=== PATIENT | female | born 1970 | race Caucasian/White ===

== ENCOUNTER 2016-04-21 18:54 | Emergency (ER) | payer OTHER ==
[~2016-04-21] VITALS: Ht 170.2 cm; Wt 88.6 kg
[~2016-04-21 18:54] MED LIST: DIVA250T4 PO; DOCU-174 PO; LURA40 PO; OMEP20 PO; TRAZ-147 PO; VENL-68 PO
[2016-04-21] MEDS ORDERED: RISP.5 PO (19:26)
[2016-04-21] MEDS ORDERED: LORA2TAB2 PO (19:35)
[2016-04-21] MEDS ORDERED: LACT30L PO (19:35)
[2016-04-21] MEDS ORDERED: DOCU250C91 PO (19:35)
[2016-04-21] MEDS ORDERED: SERT50TA12 PO (19:35)
[2016-04-21] MEDS ORDERED: BENZ1TAB10 PO (19:35)
[2016-04-21 21:00] VITALS: BP 111/64
[2016-08-18] MEDS ORDERED: MIRT15 PO (19:50)
== END 2016-04-21 21:47 | disposition home or self-care (01) ==
LOC: EMS 18:56
DX: H53.123 Transient visual loss, bilateral (principal); F17.210 Nicotine dependence, cigarettes, uncomplicated; F31.9 Bipolar disorder, unspecified; J44.9 Chronic obstructive pulmonary disease, unspecified; K21.9 Gastro-esophageal reflux disease without esophagitis; F20.9 Schizophrenia, unspecified; Z88.2 Allergy status to sulfonamides; Z88.6 Allergy status to analgesic agent; Z91.013 Allergy to seafood
CPT/HCPCS: 70450; 99284

== ENCOUNTER 2016-05-24 18:22 | Emergency (ER) | payer OTHER ==
[~2016-05-24] VITALS: Ht 167.6 cm; Wt 86.0 kg
[~2016-05-24 18:22] MED LIST changes: +BENZ1TAB10 PO; -DOCU-174 PO; +DOCU250C91 PO; +LACT30L PO; +LORA2TAB2 PO; -LURA40 PO; -OMEP20 PO; +RISP.5 PO; +SERT50TA12 PO; -TRAZ-147 PO; -VENL-68 PO
[2016-05-24] MEDS ORDERED: TOPI25 PO (18:36)
[2016-05-24] MEDS ORDERED: TRAZ-147 PO (18:36)
[2016-05-24] MEDS ORDERED: QUET200T PO (18:36)
[2016-05-24 19:17] LABS: BASOPHILS % (AUTO) 0.3 % (0.0-2.0); EOSINOPHILS % (AUTO) 0.1 % (1.0-6.0); HEMATOCRIT 42.8 % (36-46); HEMOGLOBIN 14.1 g/dL (12.0-16.0); LYMPHOCYTES # (AUTO) 2.4 K/uL (1.0-4.8); LYMPHOCYTES % (AUTO) 35.1 % (22.0-44.0); MEAN CORPUSCULAR HEMOGLOBIN 30.5 pg (26.0-34.0); MEAN CORPUSCULAR VOLUME 93 fL (80-100); MONOCYTES # (AUTO) 0.7 K/uL (0.1-1.0); MONOCYTES % (AUTO) 9.8 % (2.0-9.0); NEUTROPHILS # (AUTO) 3.7 K/uL (1.8-7.7); NEUTROPHILS % (AUTO) 54.7 % (40.0-70.0); PLATELET COUNT (AUTO) 234 K/uL (150-450); RED BLOOD CELL COUNT(AUTO) 4.62 MIL/uL (4.00-5.20); RED CELL DISTRIBUTION WIDTH 15.6 % (11.5-14.5); WHITE BLOOD COUNT (AUTO) 6.9 K/uL (4.5-11.0)
[2016-05-24 19:40] LABS: ANION GAP 13 mmol/L (8-16); CALCIUM, TOTAL 8.4 mg/dL (8.8-10.5); CARBON DIOXIDE 22 mmol/L (22-29); CHLORIDE 109 mmol/L (98-107); GLOMERULAR FILTR. RATE CALC 60 mL/min (>60); POTASSIUM 3.3 mmol/L (3.5-5.1); SODIUM SERUM 144 mmol/L (136-145); UREA NITROGEN, BLOOD 12 mg/dL (7-18)
[2016-05-24 19:46] LABS: ALANINE AMINOTRANSFERASE 12 U/L (12-78); ALBUMIN 3.4 g/dL (3.4-5.0); ASPARTATE AMINOTRANSFERASE 11 U/L (15-37); BILIRUBIN,TOTAL 0.2 mg/dL (0.1-1.0); TOTAL PROTEIN, SERUM 6.5 g/dL (6.4-8.2)
[2016-05-24] MEDS ORDERED: DIVA500T35 PO (20:09)
[2016-05-24] MEDS ORDERED: RISP4 PO (20:09)
[2016-05-24] MEDS ORDERED: SERT100T12 PO (20:09)
[2016-05-24] MEDS ORDERED: QUEtiapine FUMARATE 100 MG TABLET PO ONE (20:15)
[2016-05-24] MEDS ORDERED: POTASSIUM CHLORIDE 10% 40 MEQ/30 ML LIQUID UDCUP PO ONE (20:30)
[2016-05-24] MEDS ORDERED: LACTULOSE 20 GM/30 ML SOLUTION UDCUP PO ONE (20:30)
[2016-05-24 21:01] LABS: VALPROIC ACID 79 mcg/mL (50-100)
[2016-05-24 21:28] VITALS: BP 112/70
[2016-08-18] MEDS ORDERED: MIRT15 PO (19:50)
== END 2016-05-24 21:28 | disposition home or self-care (01) ==
LOC: EMS 18:25
DX: F20.9 Schizophrenia, unspecified (principal); E72.20 Disorder of urea cycle metabolism, unspecified; E87.6 Hypokalemia; F69 Unspecified disorder of adult personality and behavior; R44.0 Auditory hallucinations
CPT/HCPCS: 36415; 80053; 80164; 82140; 84703; 85025; 99284; G0480

== ENCOUNTER 2016-05-26 19:48 | Inpatient (IN) | payer MEDICAID, OTHER ==
[~2016-05-26] VITALS: Ht 167.6 cm; Wt 85.4 kg
[~2016-05-26 19:48] MED LIST changes: -DIVA250T4 PO; +DIVA500T35 PO; +QUET200T PO; -RISP.5 PO; +RISP4 PO; +SERT100T12 PO; -SERT50TA12 PO; +TOPI25 PO; +TRAZ-147 PO
[2016-05-26 20:16] LABS: BASOPHILS % (AUTO) 0.4 % (0.0-2.0); EOSINOPHILS % (AUTO) 0 % (1.0-6.0); HEMATOCRIT 46.1 % (36-46); HEMOGLOBIN 15.1 g/dL (12.0-16.0); LYMPHOCYTES # (AUTO) 2.5 K/uL (1.0-4.8); LYMPHOCYTES % (AUTO) 35.3 % (22.0-44.0); MEAN CORPUSCULAR HEMOGLOBIN 30.4 pg (26.0-34.0); MEAN CORPUSCULAR HGB CONC 32.7 G/dL (31.0-37.0); MEAN CORPUSCULAR VOLUME 93 fL (80-100); MONOCYTES # (AUTO) 0.7 K/uL (0.1-1.0); MONOCYTES % (AUTO) 10.4 % (2.0-9.0); NEUTROPHILS # (AUTO) 3.8 K/uL (1.8-7.7); NEUTROPHILS % (AUTO) 53.9 % (40.0-70.0); PLATELET COUNT (AUTO) 259 K/uL (150-450); RED BLOOD CELL COUNT(AUTO) 4.95 MIL/uL (4.00-5.20); RED CELL DISTRIBUTION WIDTH 15.5 % (11.5-14.5)
[2016-05-26 20:29] LABS: ANION GAP 13 mmol/L (8-16); CALCIUM, TOTAL 8.4 mg/dL (8.8-10.5); CARBON DIOXIDE 24 mmol/L (22-29); CHLORIDE 105 mmol/L (98-107); CREATININE 1.02 mg/dL (0.60-1.30); GLOMERULAR FILTR. RATE CALC 59 mL/min (>60); POTASSIUM 3.9 mmol/L (3.5-5.1); SODIUM SERUM 142 mmol/L (136-145); UREA NITROGEN, BLOOD 6 mg/dL (7-18)
[2016-05-26 20:35] LABS: ALANINE AMINOTRANSFERASE 14 U/L (12-78); ALBUMIN 3.7 g/dL (3.4-5.0); ASPARTATE AMINOTRANSFERASE 9 U/L (15-37); BILIRUBIN,TOTAL 0.3 mg/dL (0.1-1.0); TOTAL PROTEIN, SERUM 7.3 g/dL (6.4-8.2)
[2016-05-26 20:45] LABS: VALPROIC ACID 91 mcg/mL (50-100)
[2016-05-26 21:37] VITALS: BP 125/77
[2016-05-27 00:37] VITALS: BP 127/68
[2016-05-27 01:01] VITALS: BP 127/75
[2016-05-27 02:30] LABS: ADD UA MICROSCOPIC YES; APPEARANCE,URINE CLOUDY (CLEAR); GLUCOSE, URINE (UA) NEGATIVE (NEGATIVE); KETONES,URINE TRACE mg/dL (NEGATIVE); LEUKOCYTE ESTERASE ,URINE NEGATIVE (NEGATIVE); OCCULT BLOOD,URINE MODERATE (NEGATIVE); PH,URINE 6.5 (5.0-8.0); PROTEIN,URINE NEGATIVE (NEGATIVE)
[2016-05-27 05:18] LABS: SQUAMOUS EPITHELIAL CELL,UR Rare /LPF (None Seen); WBC,URINE 0-2 /HPF (0-5)
[2016-05-27 08:46] VITALS: BP 122/75
[2016-05-27] MEDS: DIVALPROEX SODIUM 500 MG DR TABLET PO SCH ×2 (09:19→16:47)
[2016-05-27] MEDS: BENZTROPINE MESYLATE 1 MG TABLET PO SCH ×2 (09:20→16:47)
[2016-05-27] MEDS: SERTRALINE HCL 100 MG TABLET PO SCH (09:20)
[2016-05-27] MEDS: TOPIRAMATE 25 MG TABLET PO SCH ×2 (09:20→16:48)
[2016-05-27] MEDS: RisperiDONE 4 MG TABLET PO SCH ×2 (09:20→16:48)
[2016-05-27] MEDS: HALOPERIDOL 5 MG TABLET PO PRN (12:49)
[2016-05-27] MEDS: LORazepam 2 MG TABLET PO PRN (12:49)
[2016-05-27 16:00] VITALS: BP 112/70
[2016-05-27] MEDS ORDERED: ACETAMINOPHEN 325 MG TABLET PO PRN (16:30)
[2016-05-27] MEDS: TraZODone HCL 100 MG TABLET PO SCH (21:34)
[2016-05-27] MEDS: QUEtiapine FUMARATE 200 MG TABLET PO SCH (21:34)
[2016-05-28] MEDS: ZOLPIDEM TARTRATE 10 MG TABLET PO PRN (02:02)
[2016-05-28] MEDS: HALOPERIDOL 5 MG TABLET PO PRN ×3 (02:03→19:51)
[2016-05-28 07:03] LABS: CHOL/HDL RATIO 2.7 (3.9-5.7); THYROID STIMULATING HORMONE 3.38 uIU/mL (0.36-3.74)
[2016-05-28 07:06] LABS: HEMOGLOBIN A1C 5.5 % (4.5-6.2)
[2016-05-28 08:00] VITALS: BP 114/75
[2016-05-28] MEDS: BENZTROPINE MESYLATE 1 MG TABLET PO SCH ×2 (09:34→16:14)
[2016-05-28] MEDS: RisperiDONE 4 MG TABLET PO SCH ×2 (09:34→16:14)
[2016-05-28] MEDS: DOCUSATE SODIUM 250 MG CAPSULE PO SCH (09:34)
[2016-05-28] MEDS: TOPIRAMATE 25 MG TABLET PO SCH ×2 (09:34→16:14)
[2016-05-28] MEDS: DIVALPROEX SODIUM 500 MG DR TABLET PO SCH ×2 (09:34→16:14)
[2016-05-28] MEDS: SERTRALINE HCL 100 MG TABLET PO SCH (09:34)
[2016-05-28] MEDS: LORazepam 2 MG TABLET PO PRN ×2 (10:14→16:14)
[2016-05-28 16:00] VITALS: BP 117/78
[2016-05-28] MEDS: QUEtiapine FUMARATE 200 MG TABLET PO SCH (21:24)
[2016-05-28] MEDS: TraZODone HCL 100 MG TABLET PO SCH (21:24)
[2016-05-29 08:41] VITALS: BP 109/71
[2016-05-29] MEDS: RisperiDONE 4 MG TABLET PO SCH ×2 (08:58→17:12)
[2016-05-29] MEDS: SERTRALINE HCL 100 MG TABLET PO SCH (08:58)
[2016-05-29] MEDS: BENZTROPINE MESYLATE 1 MG TABLET PO SCH ×2 (09:01→17:12)
[2016-05-29] MEDS: DOCUSATE SODIUM 250 MG CAPSULE PO SCH (09:01)
[2016-05-29] MEDS: DIVALPROEX SODIUM 500 MG DR TABLET PO SCH ×2 (09:01→17:12)
[2016-05-29] MEDS: LORazepam 2 MG TABLET PO PRN ×2 (09:01→14:20)
[2016-05-29] MEDS: TOPIRAMATE 25 MG TABLET PO SCH ×2 (09:01→17:12)
[2016-05-29] MEDS: HALOPERIDOL 5 MG TABLET PO PRN ×2 (09:01→14:21)
[2016-05-29 11:23] VITALS: BP 141/92
[2016-05-29] MEDS: TraZODone HCL 100 MG TABLET PO SCH (21:29)
[2016-05-29] MEDS: QUEtiapine FUMARATE 200 MG TABLET PO SCH (21:29)
[2016-05-30 06:53] VITALS: BP 115/73
[2016-05-30 08:06] VITALS: BP 135/91
[2016-05-30] MEDS: TOPIRAMATE 25 MG TABLET PO SCH ×2 (08:55→17:06)
[2016-05-30] MEDS: BENZTROPINE MESYLATE 1 MG TABLET PO SCH ×2 (08:55→17:06)
[2016-05-30] MEDS: DOCUSATE SODIUM 250 MG CAPSULE PO SCH (08:55)
[2016-05-30] MEDS: RisperiDONE 4 MG TABLET PO SCH ×2 (08:56→17:07)
[2016-05-30] MEDS: SERTRALINE HCL 100 MG TABLET PO SCH (08:56)
[2016-05-30] MEDS: DIVALPROEX SODIUM 500 MG DR TABLET PO SCH ×2 (08:56→17:06)
[2016-05-30] MEDS: LORazepam 2 MG TABLET PO PRN (17:06)
[2016-05-30 18:48] VITALS: BP 140/92
[2016-05-30] MEDS: HALOPERIDOL 5 MG TABLET PO PRN (18:54)
[2016-05-30] MEDS: QUEtiapine FUMARATE 200 MG TABLET PO SCH (21:18)
[2016-05-30] MEDS: TraZODone HCL 100 MG TABLET PO SCH (21:18)
[2016-05-31 06:48] VITALS: BP 129/89
[2016-05-31] MEDS: BENZTROPINE MESYLATE 1 MG TABLET PO SCH ×2 (08:27→16:09)
[2016-05-31] MEDS: DOCUSATE SODIUM 250 MG CAPSULE PO SCH (08:27)
[2016-05-31] MEDS: DIVALPROEX SODIUM 500 MG DR TABLET PO SCH ×2 (08:27→16:09)
[2016-05-31] MEDS: TOPIRAMATE 25 MG TABLET PO SCH ×2 (08:28→16:09)
[2016-05-31] MEDS: SERTRALINE HCL 100 MG TABLET PO SCH (08:28)
[2016-05-31] MEDS: RisperiDONE 4 MG TABLET PO SCH ×2 (08:28→16:09)
[2016-05-31 08:54] VITALS: BP 155/85
[2016-05-31] MEDS: LORazepam 2 MG TABLET PO PRN (12:20)
[2016-05-31] MEDS: HALOPERIDOL 5 MG TABLET PO PRN (12:20)
[2016-05-31 17:23] VITALS: BP 110/70
[2016-05-31] MEDS: QUEtiapine FUMARATE 200 MG TABLET PO SCH (20:08)
[2016-05-31] MEDS: TraZODone HCL 100 MG TABLET PO SCH (20:09)
[2016-06-01 06:08] VITALS: BP 131/73
[2016-06-01] MEDS: LORazepam 2 MG TABLET PO PRN (06:08)
[2016-06-01 08:51] VITALS: BP 108/76
[2016-06-01] MEDS: RisperiDONE 4 MG TABLET PO SCH ×2 (09:33→16:15)
[2016-06-01] MEDS: BENZTROPINE MESYLATE 1 MG TABLET PO SCH ×2 (09:33→16:15)
[2016-06-01] MEDS: DOCUSATE SODIUM 250 MG CAPSULE PO SCH (09:33)
[2016-06-01] MEDS: TOPIRAMATE 25 MG TABLET PO SCH ×2 (09:33→16:15)
[2016-06-01] MEDS: DIVALPROEX SODIUM 500 MG DR TABLET PO SCH ×2 (09:33→16:15)
[2016-06-01] MEDS: SERTRALINE HCL 100 MG TABLET PO SCH (09:33)
[2016-06-01 16:40] VITALS: BP 126/83
[2016-06-01] MEDS: TraZODone HCL 100 MG TABLET PO SCH (20:09)
[2016-06-01] MEDS: QUEtiapine FUMARATE 200 MG TABLET PO SCH (20:10)
[2016-06-01] MEDS: ZOLPIDEM TARTRATE 10 MG TABLET PO PRN (21:10)
[2016-06-02] MEDS: LORazepam 2 MG TABLET PO PRN (07:44)
[2016-06-02] MEDS: DOCUSATE SODIUM 250 MG CAPSULE PO SCH (08:20)
[2016-06-02] MEDS: RisperiDONE 4 MG TABLET PO SCH (08:20)
[2016-06-02] MEDS: BENZTROPINE MESYLATE 1 MG TABLET PO SCH (08:20)
[2016-06-02] MEDS: DIVALPROEX SODIUM 500 MG DR TABLET PO SCH (08:20)
[2016-06-02] MEDS: TOPIRAMATE 25 MG TABLET PO SCH (08:21)
[2016-06-02] MEDS: SERTRALINE HCL 100 MG TABLET PO SCH (08:21)
[2016-06-02 09:11] VITALS: BP 129/86
== END 2016-06-02 13:04 | disposition home or self-care (01) | DRG 750 ==
LOC: EMS 19:58 → 3EI 21:30
PROVIDERS: ADMIT Psychiatry & Neurology Child & Adolescent Psychiatry; ATTEND Psychiatry & Neurology Child & Adolescent Psychiatry
DX: F25.0 Schizoaffective disorder, bipolar type (principal); J44.9 Chronic obstructive pulmonary disease, unspecified; J45.909 Unspecified asthma, uncomplicated; K21.9 Gastro-esophageal reflux disease without esophagitis; K59.00 Constipation, unspecified; F17.210 Nicotine dependence, cigarettes, uncomplicated; Z91.5 Personal history of self-harm; Z82.0 Family history of epilepsy and other diseases of the nervous system; Z88.2 Allergy status to sulfonamides; Z88.6 Allergy status to analgesic agent; Z91.013 Allergy to seafood; Z90.49 Acquired absence of other specified parts of digestive tract
CPT/HCPCS: 83036; 84443; 99285; G0480

== ENCOUNTER 2016-06-07 16:21 | Inpatient (IN) | payer MEDICAID ==
[~2016-06-07] VITALS: Ht 167.6 cm; Wt 86.9 kg
[~2016-06-07 16:21] MED LIST changes: -LACT30L PO; -LORA2TAB2 PO
[2016-06-07 16:41] VITALS: BP 117/66
[2016-06-07] MEDS ORDERED: ZOLPIDEM TARTRATE 10 MG TABLET PO PRN (17:00)
[2016-06-07 17:36] VITALS: BP 121/78
[2016-06-07] MEDS: BENZTROPINE MESYLATE 1 MG TABLET PO SCH (18:31)
[2016-06-07] MEDS: RisperiDONE 4 MG TABLET PO SCH (18:31)
[2016-06-07] MEDS: DIVALPROEX SODIUM 500 MG DR TABLET PO SCH (18:31)
[2016-06-07] MEDS: TOPIRAMATE 25 MG TABLET PO SCH (18:32)
[2016-06-07] MEDS: LORazepam 2 MG TABLET PO PRN (19:10)
[2016-06-07] MEDS: QUEtiapine FUMARATE 200 MG TABLET PO SCH (21:50)
[2016-06-07] MEDS: TraZODone HCL 100 MG TABLET PO SCH (21:50)
[2016-06-08 03:01] VITALS: BP 115/64
[2016-06-08 05:28] VITALS: BP 141/69
[2016-06-08] MEDS: LORazepam 2 MG TABLET PO PRN ×3 (05:28→15:57)
[2016-06-08] MEDS: DOCUSATE SODIUM 250 MG CAPSULE PO SCH (08:26)
[2016-06-08] MEDS: SERTRALINE HCL 100 MG TABLET PO SCH (08:26)
[2016-06-08] MEDS: BENZTROPINE MESYLATE 1 MG TABLET PO SCH ×2 (08:26→15:57)
[2016-06-08] MEDS: NICOTINE 14 MG/24 HOUR PATCH TD SCH (08:27)
[2016-06-08] MEDS: DIVALPROEX SODIUM 500 MG DR TABLET PO SCH ×2 (08:27→15:57)
[2016-06-08] MEDS: TOPIRAMATE 25 MG TABLET PO SCH ×2 (08:27→15:57)
[2016-06-08] MEDS: RisperiDONE 4 MG TABLET PO SCH ×2 (08:27→15:57)
[2016-06-08 08:33] LABS: BASOPHILS % (AUTO) 0.6 % (0.0-2.0); EOSINOPHILS % (AUTO) 0 % (1.0-6.0); HEMATOCRIT 43.7 % (36-46); HEMOGLOBIN 14.7 g/dL (12.0-16.0); LYMPHOCYTES # (AUTO) 1.6 K/uL (1.0-4.8); LYMPHOCYTES % (AUTO) 34.4 % (22.0-44.0); MEAN CORPUSCULAR HEMOGLOBIN 31.1 pg (26.0-34.0); MEAN CORPUSCULAR HGB CONC 33.6 G/dL (31.0-37.0); MEAN CORPUSCULAR VOLUME 93 fL (80-100); MONOCYTES # (AUTO) 0.5 K/uL (0.1-1.0); MONOCYTES % (AUTO) 10.5 % (2.0-9.0); NEUTROPHILS # (AUTO) 2.6 K/uL (1.8-7.7); NEUTROPHILS % (AUTO) 54.5 % (40.0-70.0); PLATELET COUNT (AUTO) 216 K/uL (150-450); RED BLOOD CELL COUNT(AUTO) 4.72 MIL/uL (4.00-5.20); WHITE BLOOD COUNT (AUTO) 4.7 K/uL (4.5-11.0)
[2016-06-08 08:41] VITALS: BP 105/65
[2016-06-08 08:58] LABS: ALANINE AMINOTRANSFERASE 11 U/L (12-78); ALBUMIN 3.2 g/dL (3.4-5.0); ANION GAP 12 mmol/L (8-16); ASPARTATE AMINOTRANSFERASE 10 U/L (15-37); BILIRUBIN,TOTAL 0.3 mg/dL (0.1-1.0); CALCIUM, TOTAL 8.7 mg/dL (8.8-10.5); CARBON DIOXIDE 21 mmol/L (22-29); CHLORIDE 108 mmol/L (98-107); CHOL/HDL RATIO 2.6 (3.9-5.7); CREATININE 0.93 mg/dL (0.60-1.30); GLOMERULAR FILTR. RATE CALC > 60 mL/min (>60); POTASSIUM 3.8 mmol/L (3.5-5.1); SODIUM SERUM 141 mmol/L (136-145); TOTAL PROTEIN, SERUM 6.2 g/dL (6.4-8.2); UREA NITROGEN, BLOOD 9 mg/dL (7-18)
[2016-06-08] MEDS ORDERED: TOPIRAMATE 25 MG TABLET PO SCH (09:00)
[2016-06-08] MEDS ORDERED: SERTRALINE HCL 100 MG TABLET PO SCH (09:00)
[2016-06-08 16:00] VITALS: BP 113/71
[2016-06-08] MEDS: QUEtiapine FUMARATE 25 MG TABLET PO PRN (18:06)
[2016-06-08] MEDS: TraZODone HCL 100 MG TABLET PO SCH (20:23)
[2016-06-08] MEDS: QUEtiapine FUMARATE 200 MG TABLET PO SCH (20:24)
[2016-06-09 06:04] VITALS: BP 108/79
[2016-06-09] MEDS: LORazepam 2 MG TABLET PO PRN ×2 (06:07→18:12)
[2016-06-09] MEDS: NICOTINE 14 MG/24 HOUR PATCH TD SCH (08:15)
[2016-06-09] MEDS: RisperiDONE 4 MG TABLET PO SCH ×2 (08:15→16:29)
[2016-06-09] MEDS: DIVALPROEX SODIUM 500 MG DR TABLET PO SCH ×2 (08:15→16:29)
[2016-06-09] MEDS: DOCUSATE SODIUM 250 MG CAPSULE PO SCH (08:15)
[2016-06-09] MEDS: BENZTROPINE MESYLATE 1 MG TABLET PO SCH ×2 (08:15→16:29)
[2016-06-09] MEDS: SERTRALINE HCL 100 MG TABLET PO SCH (08:27)
[2016-06-09] MEDS: TOPIRAMATE 25 MG TABLET PO SCH ×2 (08:27→16:29)
[2016-06-09 08:34] VITALS: BP 113/75
[2016-06-09] MEDS ORDERED: ALBUTEROL SULFATE HFA 90 MCG/PUFF 8 GM INHALER IH PRN (15:30)
[2016-06-09 16:00] VITALS: BP 130/71
[2016-06-09] MEDS: TraZODone HCL 100 MG TABLET PO SCH (21:00)
[2016-06-09] MEDS: QUEtiapine FUMARATE 200 MG TABLET PO SCH (21:00)
[2016-06-10 02:19] VITALS: BP 115/70
[2016-06-10] MEDS: LORazepam 2 MG TABLET PO PRN ×3 (04:55→16:53)
[2016-06-10 04:56] VITALS: BP 116/75
[2016-06-10 08:01] VITALS: BP 119/75
[2016-06-10] MEDS: BENZTROPINE MESYLATE 1 MG TABLET PO SCH ×2 (09:06→16:02)
[2016-06-10] MEDS: NICOTINE 14 MG/24 HOUR PATCH TD SCH (09:06)
[2016-06-10] MEDS: SERTRALINE HCL 100 MG TABLET PO SCH (09:06)
[2016-06-10] MEDS: DIVALPROEX SODIUM 500 MG DR TABLET PO SCH ×2 (09:06→16:02)
[2016-06-10] MEDS: TOPIRAMATE 25 MG TABLET PO SCH ×2 (09:07→16:02)
[2016-06-10] MEDS: DOCUSATE SODIUM 250 MG CAPSULE PO SCH (09:07)
[2016-06-10] MEDS: QUEtiapine FUMARATE 25 MG TABLET PO PRN ×2 (09:07→13:55)
[2016-06-10] MEDS: RisperiDONE 4 MG TABLET PO SCH ×2 (09:07→16:02)
[2016-06-10 16:05] VITALS: BP 136/86
[2016-06-10] MEDS: TraZODone HCL 100 MG TABLET PO SCH (20:26)
[2016-06-10] MEDS: QUEtiapine FUMARATE 200 MG TABLET PO SCH (20:26)
[2016-06-11 00:53] VITALS: BP 116/77
[2016-06-11] MEDS: LORazepam 2 MG TABLET PO PRN ×3 (00:57→14:32)
[2016-06-11 04:07] VITALS: BP 110/77
[2016-06-11] MEDS: QUEtiapine FUMARATE 25 MG TABLET PO PRN ×2 (04:08→13:06)
[2016-06-11 08:13] VITALS: BP 118/75
[2016-06-11] MEDS: BENZTROPINE MESYLATE 1 MG TABLET PO SCH ×2 (08:14→17:23)
[2016-06-11] MEDS: DOCUSATE SODIUM 250 MG CAPSULE PO SCH (08:14)
[2016-06-11] MEDS: TOPIRAMATE 25 MG TABLET PO SCH ×2 (08:14→17:23)
[2016-06-11] MEDS: SERTRALINE HCL 100 MG TABLET PO SCH (08:14)
[2016-06-11] MEDS: DIVALPROEX SODIUM 500 MG DR TABLET PO SCH ×2 (08:14→17:23)
[2016-06-11] MEDS: RisperiDONE 4 MG TABLET PO SCH ×2 (08:14→17:23)
[2016-06-11] MEDS: NICOTINE 14 MG/24 HOUR PATCH TD SCH (08:15)
[2016-06-11 16:47] VITALS: BP 116/55
[2016-06-11] MEDS: TraZODone HCL 100 MG TABLET PO SCH (20:12)
[2016-06-11] MEDS: QUEtiapine FUMARATE 200 MG TABLET PO SCH (20:12)
[2016-06-12 02:37] VITALS: BP 110/75
[2016-06-12] MEDS: LORazepam 2 MG TABLET PO PRN ×3 (02:40→16:46)
[2016-06-12 06:40] VITALS: BP 106/62
[2016-06-12] MEDS: NICOTINE 14 MG/24 HOUR PATCH TD SCH (08:32)
[2016-06-12] MEDS: RisperiDONE 4 MG TABLET PO SCH ×2 (08:33→16:11)
[2016-06-12] MEDS: SERTRALINE HCL 100 MG TABLET PO SCH (08:33)
[2016-06-12] MEDS: DIVALPROEX SODIUM 500 MG DR TABLET PO SCH ×2 (08:33→16:11)
[2016-06-12] MEDS: BENZTROPINE MESYLATE 1 MG TABLET PO SCH ×2 (08:33→16:11)
[2016-06-12] MEDS: TOPIRAMATE 25 MG TABLET PO SCH ×2 (08:33→16:11)
[2016-06-12] MEDS: DOCUSATE SODIUM 250 MG CAPSULE PO SCH (08:34)
[2016-06-12 08:40] VITALS: BP 109/83
[2016-06-12 16:22] VITALS: BP 124/75
[2016-06-12] MEDS: TraZODone HCL 100 MG TABLET PO SCH (20:09)
[2016-06-12] MEDS: QUEtiapine FUMARATE 200 MG TABLET PO SCH (20:09)
[2016-06-13 06:24] VITALS: BP 101/61
[2016-06-13 08:02] VITALS: BP 110/78
[2016-06-13] MEDS: SERTRALINE HCL 100 MG TABLET PO SCH (08:31)
[2016-06-13] MEDS: DOCUSATE SODIUM 250 MG CAPSULE PO SCH (08:31)
[2016-06-13] MEDS: RisperiDONE 4 MG TABLET PO SCH (08:31)
[2016-06-13] MEDS: BENZTROPINE MESYLATE 1 MG TABLET PO SCH (08:31)
[2016-06-13] MEDS: TOPIRAMATE 25 MG TABLET PO SCH (08:31)
[2016-06-13] MEDS: NICOTINE 14 MG/24 HOUR PATCH TD SCH (08:31)
[2016-06-13] MEDS: DIVALPROEX SODIUM 500 MG DR TABLET PO SCH (08:31)
[2016-06-13] MEDS: LORazepam 2 MG TABLET PO PRN (10:40)
== END 2016-06-13 12:40 | disposition home or self-care (01) | DRG 750 ==
LOC: B2S 16:58 → EDSTATUS 17:02 → B2S 19:54
PROVIDERS: ADMIT Psychiatry & Neurology Psychiatry; ATTEND Psychiatry & Neurology Psychiatry
DX: F25.9 Schizoaffective disorder, unspecified (principal); R45.851 Suicidal ideations; F17.200 Nicotine dependence, unspecified, uncomplicated; J45.909 Unspecified asthma, uncomplicated; K21.9 Gastro-esophageal reflux disease without esophagitis; K59.00 Constipation, unspecified; Z71.6 Tobacco abuse counseling; Z88.2 Allergy status to sulfonamides; Z91.013 Allergy to seafood; Z88.8 Allergy status to other drugs, medicaments and biological substances; Z88.6 Allergy status to analgesic agent; Z90.49 Acquired absence of other specified parts of digestive tract; Z82.0 Family history of epilepsy and other diseases of the nervous system
CPT/HCPCS: 87081

== ENCOUNTER 2016-06-16 21:21 | Emergency (ER) | payer MEDICAID, OTHER ==
[~2016-06-16] VITALS: Ht 167.6 cm; Wt 86.4 kg
[2016-06-16 21:38] LABS: BASOPHILS % (AUTO) 0.1 % (0.0-2.0); EOSINOPHILS % (AUTO) 0 % (1.0-6.0); HEMATOCRIT 44.8 % (36-46); HEMOGLOBIN 14.8 g/dL (12.0-16.0); LYMPHOCYTES # (AUTO) 2.7 K/uL (1.0-4.8); LYMPHOCYTES % (AUTO) 40.6 % (22.0-44.0); MEAN CORPUSCULAR HEMOGLOBIN 30.9 pg (26.0-34.0); MEAN CORPUSCULAR HGB CONC 33.1 G/dL (31.0-37.0); MEAN CORPUSCULAR VOLUME 93 fL (80-100); MONOCYTES # (AUTO) 0.6 K/uL (0.1-1.0); MONOCYTES % (AUTO) 9.7 % (2.0-9.0); NEUTROPHILS # (AUTO) 3.3 K/uL (1.8-7.7); NEUTROPHILS % (AUTO) 49.6 % (40.0-70.0); PLATELET COUNT (AUTO) 237 K/uL (150-450); RED BLOOD CELL COUNT(AUTO) 4.81 MIL/uL (4.00-5.20); RED CELL DISTRIBUTION WIDTH 14.5 % (11.5-14.5); WHITE BLOOD COUNT (AUTO) 6.6 K/uL (4.5-11.0)
[2016-06-16 21:48] LABS: ANION GAP 12 mmol/L (8-16); CALCIUM, TOTAL 8.8 mg/dL (8.8-10.5); CARBON DIOXIDE 21 mmol/L (22-29); CHLORIDE 106 mmol/L (98-107); CREATININE 1.02 mg/dL (0.60-1.30); GLOMERULAR FILTR. RATE CALC 59 mL/min (>60); POTASSIUM 3.5 mmol/L (3.5-5.1); SODIUM SERUM 139 mmol/L (136-145); UREA NITROGEN, BLOOD 10 mg/dL (7-18)
[2016-06-16 21:53] LABS: ALANINE AMINOTRANSFERASE 11 U/L (12-78); ALBUMIN 3.3 g/dL (3.4-5.0); ASPARTATE AMINOTRANSFERASE 8 U/L (15-37); BILIRUBIN,TOTAL 0.2 mg/dL (0.1-1.0); TOTAL PROTEIN, SERUM 6.5 g/dL (6.4-8.2)
[2016-06-16 23:05] VITALS: BP 129/66
[2016-06-17] MEDS ORDERED: HALOPERIDOL 5 MG TABLET PO ONE
[2016-06-17] MEDS ORDERED: DiphenhydrAMINE HCL 25 MG CAPSULE PO ONE
== END 2016-06-17 00:22 | disposition home or self-care (01) ==
LOC: EMS 21:22
DX: F20.0 Paranoid schizophrenia (principal); R45.851 Suicidal ideations; F17.210 Nicotine dependence, cigarettes, uncomplicated; J44.9 Chronic obstructive pulmonary disease, unspecified; F32.9 Major depressive disorder, single episode, unspecified; K21.9 Gastro-esophageal reflux disease without esophagitis; F20.9 Schizophrenia, unspecified; J45.909 Unspecified asthma, uncomplicated; Z90.49 Acquired absence of other specified parts of digestive tract; Z88.2 Allergy status to sulfonamides; Z88.6 Allergy status to analgesic agent; Z91.013 Allergy to seafood
CPT/HCPCS: 36415; 80053; 80307; 85025; 99285; G0480

== ENCOUNTER 2016-06-19 09:24 | Inpatient (IN) | payer MEDICAID, OTHER ==
[~2016-06-19] VITALS: Ht 167.6 cm; Wt 87.4 kg
[2016-06-19 09:59] VITALS: BP 127/86
[2016-06-19] MEDS: QUEtiapine FUMARATE 100 MG TABLET PO PRN ×2 (11:11→18:34)
[2016-06-19 11:27] VITALS: BP 124/78
[2016-06-19] MEDS: LORazepam 2 MG TABLET PO PRN ×2 (11:27→17:57)
[2016-06-19 16:07] VITALS: BP 128/60
[2016-06-19] MEDS: RisperiDONE 4 MG TABLET PO SCH (17:33)
[2016-06-19] MEDS: TOPIRAMATE 25 MG TABLET PO SCH (17:33)
[2016-06-19] MEDS: DIVALPROEX SODIUM 500 MG DR TABLET PO SCH (17:33)
[2016-06-19] MEDS: BENZTROPINE MESYLATE 1 MG TABLET PO SCH (17:34)
[2016-06-19] MEDS: TraZODone HCL 100 MG TABLET PO SCH (21:31)
[2016-06-19] MEDS: QUEtiapine FUMARATE 200 MG TABLET PO SCH (21:31)
[2016-06-20 00:30] VITALS: BP 110/72
[2016-06-20 08:23] VITALS: BP 101/73
[2016-06-20 08:27] LABS: BASOPHILS # (AUTO) 0.03 K/uL (0.00-0.20); BASOPHILS % (AUTO) 0.6 % (0.0-2.0); EOSINOPHILS % (AUTO) 0.01 % (1.0-6.0); HEMATOCRIT 45.7 % (36-46); HEMOGLOBIN 15.2 g/dL (12.0-16.0); LYMPHOCYTES # (AUTO) 1.9 K/uL (1.0-4.8); LYMPHOCYTES % (AUTO) 39.1 % (22.0-44.0); MEAN CORPUSCULAR HEMOGLOBIN 30.8 pg (26.0-34.0); MEAN CORPUSCULAR HGB CONC 33.3 G/dL (31.0-37.0); MEAN CORPUSCULAR VOLUME 93 fL (80-100); MONOCYTES # (AUTO) 0.5 K/uL (0.1-1.0); MONOCYTES % (AUTO) 10.8 % (2.0-9.0); NEUTROPHILS # (AUTO) 2.4 K/uL (1.8-7.7); NEUTROPHILS % (AUTO) 49.6 % (40.0-70.0); PLATELET COUNT (AUTO) 229 K/uL (150-450); RED BLOOD CELL COUNT(AUTO) 4.94 MIL/uL (4.00-5.20); WHITE BLOOD COUNT (AUTO) 4.8 K/uL (4.5-11.0)
[2016-06-20 08:47] LABS: ALANINE AMINOTRANSFERASE 11 U/L (12-78); ALBUMIN 3.4 g/dL (3.4-5.0); ANION GAP 14 mmol/L (8-16); ASPARTATE AMINOTRANSFERASE 6 U/L (15-37); BILIRUBIN,TOTAL 0.3 mg/dL (0.1-1.0); CALCIUM, TOTAL 8.7 mg/dL (8.8-10.5); CARBON DIOXIDE 21 mmol/L (22-29); CHLORIDE 107 mmol/L (98-107); CREATININE 0.99 mg/dL (0.60-1.30); GLOMERULAR FILTR. RATE CALC > 60 mL/min (>60); SODIUM SERUM 142 mmol/L (136-145); TOTAL PROTEIN, SERUM 6.4 g/dL (6.4-8.2); UREA NITROGEN, BLOOD 8 mg/dL (7-18); VALPROIC ACID 60 mcg/mL (50-100)
[2016-06-20] MEDS: SERTRALINE HCL 50 MG TABLET PO SCH (08:56)
[2016-06-20] MEDS: TOPIRAMATE 25 MG TABLET PO SCH ×2 (08:56→16:00)
[2016-06-20] MEDS: LORazepam 2 MG TABLET PO PRN ×2 (08:57→16:37)
[2016-06-20] MEDS: RisperiDONE 4 MG TABLET PO SCH ×2 (08:57→16:00)
[2016-06-20] MEDS: BENZTROPINE MESYLATE 1 MG TABLET PO SCH ×2 (08:57→16:01)
[2016-06-20] MEDS: DIVALPROEX SODIUM 500 MG DR TABLET PO SCH ×2 (08:57→16:01)
[2016-06-20] MEDS: NICOTINE 14 MG/24 HOUR PATCH TD SCH (08:58)
[2016-06-20 13:05] VITALS: BP 119/55
[2016-06-20] MEDS: ACETAMINOPHEN 325 MG TABLET PO PRN (13:20)
[2016-06-20] MEDS: QUEtiapine FUMARATE 100 MG TABLET PO PRN (13:20)
[2016-06-20 16:09] VITALS: BP 102/78
[2016-06-20] MEDS: TraZODone HCL 100 MG TABLET PO SCH (21:00)
[2016-06-20] MEDS: QUEtiapine FUMARATE 200 MG TABLET PO SCH (21:00)
[2016-06-20] MEDS: ZOLPIDEM TARTRATE 10 MG TABLET PO PRN (21:24)
[2016-06-21 04:23] VITALS: BP 120/84
[2016-06-21] MEDS: LORazepam 2 MG TABLET PO PRN ×4 (04:44→22:04)
[2016-06-21 06:15] VITALS: BP 111/77
[2016-06-21] MEDS: QUEtiapine FUMARATE 100 MG TABLET PO PRN ×2 (06:38→14:44)
[2016-06-21] MEDS: DIVALPROEX SODIUM 500 MG DR TABLET PO SCH ×2 (08:30→16:07)
[2016-06-21] MEDS: NICOTINE 14 MG/24 HOUR PATCH TD SCH (08:30)
[2016-06-21] MEDS: BENZTROPINE MESYLATE 1 MG TABLET PO SCH ×2 (08:30→16:07)
[2016-06-21] MEDS: RisperiDONE 4 MG TABLET PO SCH ×2 (08:31→16:07)
[2016-06-21] MEDS: SERTRALINE HCL 50 MG TABLET PO SCH (08:31)
[2016-06-21] MEDS: TOPIRAMATE 25 MG TABLET PO SCH ×2 (08:31→16:07)
[2016-06-21 09:09] VITALS: BP 111/78
[2016-06-21 16:21] VITALS: BP 110/67
[2016-06-21] MEDS: TraZODone HCL 100 MG TABLET PO SCH (20:16)
[2016-06-21] MEDS: QUEtiapine FUMARATE 200 MG TABLET PO SCH (20:16)
[2016-06-21] MEDS: ZOLPIDEM TARTRATE 10 MG TABLET PO PRN (20:51)
[2016-06-22 00:28] VITALS: BP 102/63
[2016-06-22] MEDS: QUEtiapine FUMARATE 100 MG TABLET PO PRN ×3 (04:58→16:01)
[2016-06-22] MEDS: NICOTINE 14 MG/24 HOUR PATCH TD SCH (08:18)
[2016-06-22] MEDS: DIVALPROEX SODIUM 500 MG DR TABLET PO SCH ×2 (08:19→16:02)
[2016-06-22] MEDS: TOPIRAMATE 25 MG TABLET PO SCH ×2 (08:19→16:02)
[2016-06-22] MEDS: BENZTROPINE MESYLATE 1 MG TABLET PO SCH ×2 (08:19→16:02)
[2016-06-22] MEDS: LORazepam 2 MG TABLET PO PRN ×4 (08:19→22:13)
[2016-06-22] MEDS: RisperiDONE 4 MG TABLET PO SCH ×2 (08:19→16:02)
[2016-06-22] MEDS: SERTRALINE HCL 50 MG TABLET PO SCH (08:19)
[2016-06-22 08:55] VITALS: BP 125/71
[2016-06-22 16:00] VITALS: BP 128/88
[2016-06-22] MEDS: QUEtiapine FUMARATE 200 MG TABLET PO SCH (20:15)
[2016-06-22] MEDS: TraZODone HCL 100 MG TABLET PO SCH (20:15)
[2016-06-23 04:48] VITALS: BP 104/73
[2016-06-23] MEDS: QUEtiapine FUMARATE 100 MG TABLET PO PRN ×2 (04:52→11:51)
[2016-06-23] MEDS: DIVALPROEX SODIUM 500 MG DR TABLET PO SCH ×2 (08:35→17:38)
[2016-06-23] MEDS: RisperiDONE 4 MG TABLET PO SCH ×2 (08:35→17:37)
[2016-06-23] MEDS: BENZTROPINE MESYLATE 1 MG TABLET PO SCH ×2 (08:35→17:38)
[2016-06-23] MEDS: SERTRALINE HCL 50 MG TABLET PO SCH (08:36)
[2016-06-23] MEDS: NICOTINE 14 MG/24 HOUR PATCH TD SCH (08:37)
[2016-06-23] MEDS: TOPIRAMATE 25 MG TABLET PO SCH ×2 (08:37→17:38)
[2016-06-23 08:51] VITALS: BP 128/77
[2016-06-23] MEDS: LORazepam 2 MG TABLET PO PRN ×2 (10:01→17:37)
[2016-06-23 16:00] VITALS: BP 105/61
[2016-06-23] MEDS: QUEtiapine FUMARATE 200 MG TABLET PO SCH (20:47)
[2016-06-23] MEDS: TraZODone HCL 100 MG TABLET PO SCH (20:47)
[2016-06-23] MEDS: ZOLPIDEM TARTRATE 10 MG TABLET PO PRN (20:47)
[2016-06-24 05:33] VITALS: BP 115/70
[2016-06-24] MEDS: LORazepam 2 MG TABLET PO PRN ×3 (05:39→19:20)
[2016-06-24 08:34] VITALS: BP 100/57
[2016-06-24 09:40] VITALS: BP 101/84
[2016-06-24] MEDS: NICOTINE 14 MG/24 HOUR PATCH TD SCH (09:40)
[2016-06-24] MEDS: TOPIRAMATE 25 MG TABLET PO SCH ×2 (09:40→16:20)
[2016-06-24] MEDS: SERTRALINE HCL 50 MG TABLET PO SCH (09:40)
[2016-06-24] MEDS: BENZTROPINE MESYLATE 1 MG TABLET PO SCH ×2 (09:41→16:21)
[2016-06-24] MEDS: DIVALPROEX SODIUM 500 MG DR TABLET PO SCH ×2 (09:41→16:21)
[2016-06-24] MEDS: RisperiDONE 4 MG TABLET PO SCH ×2 (09:41→16:20)
[2016-06-24] MEDS: QUEtiapine FUMARATE 100 MG TABLET PO PRN (12:06)
[2016-06-24 16:07] VITALS: BP 109/71
[2016-06-24] MEDS: TraZODone HCL 100 MG TABLET PO SCH (20:11)
[2016-06-24] MEDS: QUEtiapine FUMARATE 200 MG TABLET PO SCH (20:11)
[2016-06-25] MEDS: ACETAMINOPHEN 325 MG TABLET PO PRN (02:11)
[2016-06-25 04:41] VITALS: BP 107/61
[2016-06-25] MEDS: LORazepam 2 MG TABLET PO PRN ×3 (04:43→16:54)
[2016-06-25] MEDS: QUEtiapine FUMARATE 100 MG TABLET PO PRN ×3 (07:26→16:45)
[2016-06-25] MEDS: DIVALPROEX SODIUM 500 MG DR TABLET PO SCH ×2 (08:45→16:27)
[2016-06-25] MEDS: SERTRALINE HCL 50 MG TABLET PO SCH (08:45)
[2016-06-25] MEDS: RisperiDONE 4 MG TABLET PO SCH ×2 (08:45→16:27)
[2016-06-25] MEDS: BENZTROPINE MESYLATE 1 MG TABLET PO SCH ×2 (08:45→16:27)
[2016-06-25] MEDS: TOPIRAMATE 25 MG TABLET PO SCH ×2 (08:45→16:28)
[2016-06-25] MEDS: NICOTINE 14 MG/24 HOUR PATCH TD SCH (08:45)
[2016-06-25 16:06] VITALS: BP 101/65
[2016-06-25] MEDS: QUEtiapine FUMARATE 200 MG TABLET PO SCH (20:43)
[2016-06-25] MEDS: TraZODone HCL 100 MG TABLET PO SCH (20:43)
[2016-06-26 00:50] VITALS: BP 117/67
[2016-06-26] MEDS: LORazepam 2 MG TABLET PO PRN ×3 (00:56→15:52)
[2016-06-26] MEDS: ACETAMINOPHEN 325 MG TABLET PO PRN (00:57)
[2016-06-26] MEDS: QUEtiapine FUMARATE 100 MG TABLET PO PRN ×2 (03:30→08:16)
[2016-06-26] MEDS: DIVALPROEX SODIUM 500 MG DR TABLET PO SCH ×2 (08:13→16:12)
[2016-06-26] MEDS: TOPIRAMATE 25 MG TABLET PO SCH ×2 (08:14→16:12)
[2016-06-26] MEDS: SERTRALINE HCL 50 MG TABLET PO SCH (08:14)
[2016-06-26] MEDS: RisperiDONE 4 MG TABLET PO SCH ×2 (08:14→16:13)
[2016-06-26] MEDS: BENZTROPINE MESYLATE 1 MG TABLET PO SCH ×2 (08:14→16:12)
[2016-06-26] MEDS: NICOTINE 14 MG/24 HOUR PATCH TD SCH ×2 (08:19→11:42)
[2016-06-26 08:20] VITALS: BP 103/67
[2016-06-26 16:29] VITALS: BP 138/98
[2016-06-26] MEDS: QUEtiapine FUMARATE 200 MG TABLET PO SCH (20:16)
[2016-06-26] MEDS: TraZODone HCL 100 MG TABLET PO SCH (20:16)
[2016-06-27 00:18] VITALS: BP 119/69
[2016-06-27] MEDS: LORazepam 2 MG TABLET PO PRN ×2 (04:57→16:20)
[2016-06-27] MEDS: DIVALPROEX SODIUM 500 MG DR TABLET PO SCH ×2 (08:07→16:20)
[2016-06-27] MEDS: BENZTROPINE MESYLATE 1 MG TABLET PO SCH ×2 (08:07→16:19)
[2016-06-27] MEDS: SERTRALINE HCL 50 MG TABLET PO SCH (08:07)
[2016-06-27] MEDS: RisperiDONE 4 MG TABLET PO SCH ×2 (08:08→16:20)
[2016-06-27] MEDS: TOPIRAMATE 25 MG TABLET PO SCH ×2 (08:08→16:19)
[2016-06-27] MEDS: NICOTINE 14 MG/24 HOUR PATCH TD SCH (08:11)
[2016-06-27 08:37] VITALS: BP 98/67
[2016-06-27 16:37] VITALS: BP 115/67
[2016-06-27] MEDS: TraZODone HCL 100 MG TABLET PO SCH (20:19)
[2016-06-27] MEDS: QUEtiapine FUMARATE 200 MG TABLET PO SCH (20:19)
[2016-06-28 05:17] VITALS: BP 106/73
[2016-06-28 08:38] VITALS: BP 100/65
[2016-06-28] MEDS: SERTRALINE HCL 50 MG TABLET PO SCH (09:08)
[2016-06-28] MEDS: DIVALPROEX SODIUM 500 MG DR TABLET PO SCH ×2 (09:08→16:13)
[2016-06-28] MEDS: TOPIRAMATE 25 MG TABLET PO SCH ×2 (09:08→16:13)
[2016-06-28] MEDS: NICOTINE 14 MG/24 HOUR PATCH TD SCH (09:08)
[2016-06-28] MEDS: RisperiDONE 4 MG TABLET PO SCH ×2 (09:08→16:13)
[2016-06-28] MEDS: BENZTROPINE MESYLATE 1 MG TABLET PO SCH ×2 (09:08→16:13)
[2016-06-28] MEDS: QUEtiapine FUMARATE 100 MG TABLET PO PRN (09:19)
[2016-06-28] MEDS: LORazepam 2 MG TABLET PO PRN ×2 (09:19→16:19)
[2016-06-28 16:12] VITALS: BP 110/69
[2016-06-28] MEDS: TraZODone HCL 100 MG TABLET PO SCH (20:50)
[2016-06-28] MEDS: QUEtiapine FUMARATE 200 MG TABLET PO SCH (20:50)
[2016-06-29 01:00] VITALS: BP 105/69
[2016-06-29 05:03] VITALS: BP 117/75
[2016-06-29] MEDS: LORazepam 2 MG TABLET PO PRN ×3 (05:23→17:35)
[2016-06-29] MEDS: TOPIRAMATE 25 MG TABLET PO SCH ×2 (09:29→16:48)
[2016-06-29] MEDS: DIVALPROEX SODIUM 500 MG DR TABLET PO SCH ×2 (09:30→16:48)
[2016-06-29] MEDS: NICOTINE 14 MG/24 HOUR PATCH TD SCH (09:30)
[2016-06-29] MEDS: BENZTROPINE MESYLATE 1 MG TABLET PO SCH ×2 (09:30→16:48)
[2016-06-29] MEDS: SERTRALINE HCL 50 MG TABLET PO SCH (09:30)
[2016-06-29] MEDS: RisperiDONE 4 MG TABLET PO SCH ×2 (10:04→16:51)
[2016-06-29 16:23] VITALS: BP 125/76
[2016-06-29] MEDS: QUEtiapine FUMARATE 100 MG TABLET PO PRN (17:35)
[2016-06-29] MEDS: TraZODone HCL 100 MG TABLET PO SCH (20:34)
[2016-06-29] MEDS: QUEtiapine FUMARATE 200 MG TABLET PO SCH (20:34)
[2016-06-29] MEDS: ZOLPIDEM TARTRATE 10 MG TABLET PO PRN (20:34)
[2016-06-30] MEDS: LORazepam 2 MG TABLET PO PRN ×2 (00:05→09:19)
[2016-06-30 00:08] VITALS: BP 116/76
[2016-06-30 08:31] VITALS: BP 102/60
[2016-06-30] MEDS: BENZTROPINE MESYLATE 1 MG TABLET PO SCH ×2 (09:15→17:33)
[2016-06-30] MEDS: TOPIRAMATE 25 MG TABLET PO SCH ×2 (09:15→17:33)
[2016-06-30] MEDS: DIVALPROEX SODIUM 500 MG DR TABLET PO SCH ×2 (09:15→17:33)
[2016-06-30] MEDS: SERTRALINE HCL 50 MG TABLET PO SCH (09:15)
[2016-06-30] MEDS: NICOTINE 14 MG/24 HOUR PATCH TD SCH (09:16)
[2016-06-30] MEDS: RisperiDONE 4 MG TABLET PO SCH ×2 (09:19→17:33)
[2016-06-30 16:23] VITALS: BP 120/80
[2016-06-30] MEDS: QUEtiapine FUMARATE 200 MG TABLET PO SCH (20:13)
[2016-06-30] MEDS: TraZODone HCL 100 MG TABLET PO SCH (20:14)
[2016-07-01 00:20] VITALS: BP 127/65
[2016-07-01] MEDS: LORazepam 2 MG TABLET PO PRN ×3 (00:24→13:42)
[2016-07-01] MEDS: RisperiDONE 4 MG TABLET PO SCH ×2 (08:32→16:18)
[2016-07-01] MEDS: BENZTROPINE MESYLATE 1 MG TABLET PO SCH ×2 (08:32→16:18)
[2016-07-01] MEDS: SERTRALINE HCL 50 MG TABLET PO SCH (08:32)
[2016-07-01] MEDS: DIVALPROEX SODIUM 500 MG DR TABLET PO SCH ×2 (08:32→16:18)
[2016-07-01] MEDS: TOPIRAMATE 25 MG TABLET PO SCH ×2 (08:33→16:18)
[2016-07-01] MEDS: NICOTINE 14 MG/24 HOUR PATCH TD SCH (08:35)
[2016-07-01 08:58] VITALS: BP 102/61
[2016-07-01] MEDS: QUEtiapine FUMARATE 100 MG TABLET PO PRN (13:13)
[2016-07-01 16:22] VITALS: BP 111/70
[2016-07-01] MEDS: QUEtiapine FUMARATE 200 MG TABLET PO SCH (20:05)
[2016-07-01] MEDS: TraZODone HCL 100 MG TABLET PO SCH (20:05)
[2016-07-01] MEDS: ZOLPIDEM TARTRATE 10 MG TABLET PO PRN (20:48)
[2016-07-02 00:05] VITALS: BP 112/73
[2016-07-02] MEDS: RisperiDONE 4 MG TABLET PO SCH ×2 (08:07→16:20)
[2016-07-02] MEDS: SERTRALINE HCL 50 MG TABLET PO SCH (08:08)
[2016-07-02] MEDS: NICOTINE 14 MG/24 HOUR PATCH TD SCH (08:08)
[2016-07-02] MEDS: BENZTROPINE MESYLATE 1 MG TABLET PO SCH ×2 (08:08→16:21)
[2016-07-02] MEDS: DIVALPROEX SODIUM 500 MG DR TABLET PO SCH ×2 (08:08→16:21)
[2016-07-02] MEDS: TOPIRAMATE 25 MG TABLET PO SCH ×2 (08:08→16:21)
[2016-07-02 08:28] VITALS: BP 110/72
[2016-07-02] MEDS: LORazepam 2 MG TABLET PO PRN ×2 (10:09→18:21)
[2016-07-02] MEDS: QUEtiapine FUMARATE 100 MG TABLET PO PRN (10:09)
[2016-07-02 16:11] VITALS: BP 119/73
[2016-07-02] MEDS: QUEtiapine FUMARATE 200 MG TABLET PO SCH (20:11)
[2016-07-02] MEDS: TraZODone HCL 100 MG TABLET PO SCH (20:11)
[2016-07-02] MEDS: ZOLPIDEM TARTRATE 10 MG TABLET PO PRN (20:13)
[2016-07-03 06:24] VITALS: BP 103/71
[2016-07-03] MEDS: RisperiDONE 4 MG TABLET PO SCH (07:58)
[2016-07-03] MEDS: TOPIRAMATE 25 MG TABLET PO SCH (07:58)
[2016-07-03] MEDS: NICOTINE 14 MG/24 HOUR PATCH TD SCH (07:58)
[2016-07-03] MEDS: DIVALPROEX SODIUM 500 MG DR TABLET PO SCH (07:58)
[2016-07-03] MEDS: BENZTROPINE MESYLATE 1 MG TABLET PO SCH (07:58)
[2016-07-03] MEDS: SERTRALINE HCL 50 MG TABLET PO SCH (07:58)
[2016-07-03 08:13] VITALS: BP 121/78
[2016-07-03] MEDS ORDERED: DOCU250C91 PO (10:17)
[2016-08-18] MEDS ORDERED: MIRT15 PO (19:50)
[2016-09-04] MEDS ORDERED: LITH300C3 PO (08:44)
[2016-09-04] MEDS ORDERED: OMEG-11 PO (08:44)
[2016-09-04] MEDS ORDERED: OMEP20 PO (08:44)
[2016-09-04] MEDS ORDERED: LEVO75 PO (08:44)
[2016-09-04] MEDS ORDERED: LITH600 PO (08:44)
[2016-09-04] MEDS ORDERED: QUET200T PO (08:44)
== END 2016-07-03 13:05 | disposition home or self-care (01) | DRG 750 ==
LOC: B2S 10:21
PROVIDERS: ADMIT Psychiatry & Neurology Psychiatry
DX: F25.0 Schizoaffective disorder, bipolar type (principal); F22 Delusional disorders; R45.851 Suicidal ideations; F17.200 Nicotine dependence, unspecified, uncomplicated; J45.909 Unspecified asthma, uncomplicated; K59.00 Constipation, unspecified; K21.9 Gastro-esophageal reflux disease without esophagitis; Z79.899 Other long term (current) drug therapy; Z90.49 Acquired absence of other specified parts of digestive tract; Z82.0 Family history of epilepsy and other diseases of the nervous system; Z71.6 Tobacco abuse counseling; Z88.2 Allergy status to sulfonamides; Z88.6 Allergy status to analgesic agent; Z91.013 Allergy to seafood
CPT/HCPCS: 87081

== ENCOUNTER 2016-07-06 14:47 | Inpatient (IN) | payer MEDICAID, OTHER ==
[~2016-07-06] VITALS: Ht 170.2 cm; Wt 88.5 kg
[2016-07-06 15:16] LABS: BASOPHILS % (AUTO) 0.3 % (0.0-2.0); EOSINOPHILS % (AUTO) 0.1 % (1.0-6.0); HEMATOCRIT 40.6 % (36-46); HEMOGLOBIN 13.6 g/dL (12.0-16.0); LYMPHOCYTES # (AUTO) 2.4 K/uL (1.0-4.8); LYMPHOCYTES % (AUTO) 28.7 % (22.0-44.0); MEAN CORPUSCULAR HEMOGLOBIN 31.4 pg (26.0-34.0); MEAN CORPUSCULAR HGB CONC 33.4 G/dL (31.0-37.0); MEAN CORPUSCULAR VOLUME 94 fL (80-100); MONOCYTES # (AUTO) 0.9 K/uL (0.1-1.0); MONOCYTES % (AUTO) 10.8 % (2.0-9.0); NEUTROPHILS # (AUTO) 4.9 K/uL (1.8-7.7); NEUTROPHILS % (AUTO) 60.1 % (40.0-70.0); PLATELET COUNT (AUTO) 223 K/uL (150-450); RED BLOOD CELL COUNT(AUTO) 4.32 MIL/uL (4.00-5.20); RED CELL DISTRIBUTION WIDTH 14.2 % (11.5-14.5); WHITE BLOOD COUNT (AUTO) 8.2 K/uL (4.5-11.0)
[2016-07-06 15:27] LABS: ANION GAP 10 mmol/L (8-16); CALCIUM, TOTAL 8.1 mg/dL (8.8-10.5); CARBON DIOXIDE 24 mmol/L (22-29); CHLORIDE 106 mmol/L (98-107); CREATININE 0.85 mg/dL (0.60-1.30); GLOMERULAR FILTR. RATE CALC > 60 mL/min (>60); POTASSIUM 3.8 mmol/L (3.5-5.1); SODIUM SERUM 140 mmol/L (136-145); UREA NITROGEN, BLOOD 13 mg/dL (7-18)
[2016-07-06 15:58] LABS: ALANINE AMINOTRANSFERASE 13 U/L (12-78); ALBUMIN 3.3 g/dL (3.4-5.0); ASPARTATE AMINOTRANSFERASE 7 U/L (15-37); BILIRUBIN,TOTAL 0.2 mg/dL (0.1-1.0); TOTAL PROTEIN, SERUM 6.4 g/dL (6.4-8.2)
[2016-07-06] MEDS ORDERED: DiphenhydrAMINE HCL 50 MG/ML VIAL ONE (16:20)
[2016-07-06] MEDS ORDERED: HALOPERIDOL LACTATE 5 MG/ML VIAL ONE (16:20)
[2016-07-06] MEDS ORDERED: LORazepam 2 MG/ML VIAL ONE (16:20)
[2016-07-06] MEDS ORDERED: LORazepam 2 MG/ML VIAL IM ONE ×2 (16:30→17:30)
[2016-07-06] MEDS ORDERED: DiphenhydrAMINE HCL 50 MG/ML VIAL IM ONE (16:30)
[2016-07-06] MEDS ORDERED: HALOPERIDOL LACTATE 5 MG/ML VIAL IM ONE (16:30)
[2016-07-06] MEDS ORDERED: OLANZapine 5 MG TABLET PO ONE (17:30)
[2016-07-06] MEDS: ZOLPIDEM TARTRATE 10 MG TABLET PO PRN (21:09)
[2016-07-06 21:10] VITALS: BP 109/80
[2016-07-07 03:11] VITALS: BP 138/66
[2016-07-07] MEDS: LORazepam 2 MG TABLET PO PRN ×3 (03:19→16:28)
[2016-07-07 08:22] VITALS: BP 132/69
[2016-07-07] MEDS: HALOPERIDOL 5 MG TABLET PO PRN (08:49)
[2016-07-07] MEDS: NICOTINE 14 MG/24 HOUR PATCH TD SCH (08:49)
[2016-07-07] MEDS: LITHIUM CARBONATE 300 MG CAPSULE PO SCH ×2 (09:58→16:23)
[2016-07-07] MEDS: DIVALPROEX SODIUM 500 MG DR TABLET PO SCH ×2 (09:58→16:23)
[2016-07-07] MEDS: QUEtiapine FUMARATE 300 MG TABLET PO SCH ×2 (09:58→16:22)
[2016-07-07 16:06] VITALS: BP 114/78
[2016-07-07] MEDS ORDERED: DOCUSATE SODIUM 100 MG CAPSULE PO PRN (20:45)
[2016-07-07] MEDS: ZOLPIDEM TARTRATE 10 MG TABLET PO PRN (21:13)
[2016-07-08 04:57] VITALS: BP 122/62
[2016-07-08] MEDS: LORazepam 2 MG TABLET PO PRN ×3 (05:04→16:54)
[2016-07-08] MEDS: NICOTINE 14 MG/24 HOUR PATCH TD SCH (08:33)
[2016-07-08] MEDS: LITHIUM CARBONATE 300 MG CAPSULE PO SCH ×2 (08:33→16:54)
[2016-07-08] MEDS: QUEtiapine FUMARATE 300 MG TABLET PO SCH ×2 (08:33→16:54)
[2016-07-08] MEDS: DIVALPROEX SODIUM 500 MG DR TABLET PO SCH ×2 (08:33→16:54)
[2016-07-08 16:11] VITALS: BP 108/68
[2016-07-08] MEDS: ZOLPIDEM TARTRATE 10 MG TABLET PO PRN (20:18)
[2016-07-09 04:53] VITALS: BP 106/62
[2016-07-09] MEDS: LORazepam 2 MG TABLET PO PRN ×2 (04:58→12:24)
[2016-07-09] MEDS: HALOPERIDOL 5 MG TABLET PO PRN ×2 (07:28→12:24)
[2016-07-09 08:30] VITALS: BP 123/60
[2016-07-09] MEDS: QUEtiapine FUMARATE 300 MG TABLET PO SCH ×2 (09:26→17:34)
[2016-07-09] MEDS: LITHIUM CARBONATE 300 MG CAPSULE PO SCH ×2 (09:26→17:34)
[2016-07-09] MEDS: DIVALPROEX SODIUM 500 MG DR TABLET PO SCH ×2 (09:26→17:34)
[2016-07-09] MEDS: NICOTINE 14 MG/24 HOUR PATCH TD SCH (09:28)
[2016-07-09 16:00] VITALS: BP 117/76
[2016-07-09] MEDS: ZOLPIDEM TARTRATE 10 MG TABLET PO PRN (20:06)
[2016-07-10 07:08] VITALS: BP 111/64
[2016-07-10] MEDS: QUEtiapine FUMARATE 300 MG TABLET PO SCH ×2 (09:30→16:04)
[2016-07-10] MEDS: NICOTINE 14 MG/24 HOUR PATCH TD SCH (09:31)
[2016-07-10] MEDS: DIVALPROEX SODIUM 500 MG DR TABLET PO SCH ×2 (09:31→16:04)
[2016-07-10] MEDS: LORazepam 2 MG TABLET PO PRN ×2 (09:31→16:05)
[2016-07-10] MEDS: LITHIUM CARBONATE 300 MG CAPSULE PO SCH ×2 (09:31→16:04)
[2016-07-10 11:25] VITALS: BP 120/70
[2016-07-10 16:00] VITALS: BP 119/64
[2016-07-10] MEDS: ZOLPIDEM TARTRATE 10 MG TABLET PO PRN (20:31)
[2016-07-11 03:08] VITALS: BP 113/61
[2016-07-11] MEDS: LORazepam 2 MG TABLET PO PRN (03:16)
[2016-07-11] MEDS ORDERED: LITH300C3 PO (08:00)
[2016-07-11] MEDS ORDERED: QUET300T2 PO (08:00)
[2016-07-11 08:06] VITALS: BP 107/70
[2016-07-11 08:09] LABS: LITHIUM 0.5 mmol/L (0.60-1.20)
[2016-07-11] MEDS: DIVALPROEX SODIUM 500 MG DR TABLET PO SCH (08:51)
[2016-07-11] MEDS: LITHIUM CARBONATE 300 MG CAPSULE PO SCH (08:51)
[2016-07-11] MEDS: NICOTINE 14 MG/24 HOUR PATCH TD SCH (08:51)
[2016-07-11] MEDS: QUEtiapine FUMARATE 300 MG TABLET PO SCH (08:52)
[2016-08-18] MEDS ORDERED: MIRT15 PO (19:50)
[2016-09-04] MEDS ORDERED: LITH300C3 PO (08:44)
[2016-09-04] MEDS ORDERED: OMEP20 PO (08:44)
[2016-09-04] MEDS ORDERED: OMEG-11 PO (08:44)
[2016-09-04] MEDS ORDERED: LITH600 PO (08:44)
[2016-09-04] MEDS ORDERED: QUET200T PO (08:44)
[2016-09-04] MEDS ORDERED: LEVO75 PO (08:44)
== END 2016-07-11 14:07 | disposition home or self-care (01) | DRG 750 ==
LOC: EMS 14:48 → B2S 17:58
PROVIDERS: ADMIT Psychiatry & Neurology Psychiatry; ATTEND Psychiatry & Neurology Psychiatry
PROC: HZ37ZZZ Individual Counseling for Substance Abuse Treatment, Motivational Enhancement (ICD-10-PCS; principal; 2016-07-07)
DX: F25.9 Schizoaffective disorder, unspecified (principal); R45.851 Suicidal ideations; J44.9 Chronic obstructive pulmonary disease, unspecified; K21.9 Gastro-esophageal reflux disease without esophagitis; F31.9 Bipolar disorder, unspecified; K59.09 Other constipation; J45.909 Unspecified asthma, uncomplicated; F17.210 Nicotine dependence, cigarettes, uncomplicated; Z82.0 Family history of epilepsy and other diseases of the nervous system; Z90.89 Acquired absence of other organs; Z88.2 Allergy status to sulfonamides; Z88.6 Allergy status to analgesic agent; Z91.013 Allergy to seafood; Z71.6 Tobacco abuse counseling; Z79.899 Other long term (current) drug therapy
CPT/HCPCS: 87081; 96372; 99285; G0480; J1200; J1630; J2060

== ENCOUNTER 2016-07-13 17:28 | Inpatient (IN) | payer MEDICAID, OTHER ==
[~2016-07-13] VITALS: Ht 167.6 cm; Wt 90.8 kg
[~2016-07-13 17:28] MED LIST changes: -BENZ1TAB10 PO; -DOCU250C91 PO; +LITH300C3 PO; -QUET200T PO; +QUET300T2 PO; -RISP4 PO; -SERT100T12 PO; -TOPI25 PO; -TRAZ-147 PO
[2016-07-13 18:38] LABS: BASOPHILS % (AUTO) 0.3 % (0.0-2.0); EOSINOPHILS % (AUTO) 0 % (1.0-6.0); HEMATOCRIT 42.9 % (36-46); HEMOGLOBIN 14.2 g/dL (12.0-16.0); LYMPHOCYTES % (AUTO) 23.7 % (22.0-44.0); MEAN CORPUSCULAR HEMOGLOBIN 31.2 pg (26.0-34.0); MEAN CORPUSCULAR VOLUME 95 fL (80-100); MONOCYTES # (AUTO) 0.8 K/uL (0.1-1.0); MONOCYTES % (AUTO) 9.1 % (2.0-9.0); NEUTROPHILS # (AUTO) 5.6 K/uL (1.8-7.7); NEUTROPHILS % (AUTO) 66.9 % (40.0-70.0); PLATELET COUNT (AUTO) 247 K/uL (150-450); RED BLOOD CELL COUNT(AUTO) 4.54 MIL/uL (4.00-5.20); RED CELL DISTRIBUTION WIDTH 14.2 % (11.5-14.5); WHITE BLOOD COUNT (AUTO) 8.4 K/uL (4.5-11.0)
[2016-07-13 18:51] LABS: ANION GAP 7 mmol/L (8-16); CALCIUM, TOTAL 8.8 mg/dL (8.8-10.5); CARBON DIOXIDE 26 mmol/L (22-29); CHLORIDE 106 mmol/L (98-107); CREATININE 0.98 mg/dL (0.60-1.30); GLOMERULAR FILTR. RATE CALC > 60 mL/min (>60); POTASSIUM 3.9 mmol/L (3.5-5.1); SODIUM SERUM 139 mmol/L (136-145); UREA NITROGEN, BLOOD 11 mg/dL (7-18)
[2016-07-13 18:57] LABS: ALANINE AMINOTRANSFERASE 18 U/L (12-78); ALBUMIN 3.4 g/dL (3.4-5.0); ASPARTATE AMINOTRANSFERASE 10 U/L (15-37); BILIRUBIN,TOTAL 0.2 mg/dL (0.1-1.0); TOTAL PROTEIN, SERUM 6.6 g/dL (6.4-8.2); VALPROIC ACID 44 mcg/mL (50-100)
[2016-07-13] MEDS ORDERED: QUEtiapine FUMARATE 100 MG TABLET PO ONE (20:00)
[2016-07-13 20:36] LABS: CHOL/HDL RATIO 3.1 (3.9-5.7)
[2016-07-13 21:31] LABS: ADD UA MICROSCOPIC NO; APPEARANCE,URINE CLEAR (CLEAR); GLUCOSE, URINE (UA) NEGATIVE (NEGATIVE); KETONES,URINE NEGATIVE (NEGATIVE); LEUKOCYTE ESTERASE ,URINE NEGATIVE (NEGATIVE); OCCULT BLOOD,URINE NEGATIVE (NEGATIVE); PH,URINE 6.5 (5.0-8.0); PROTEIN,URINE NEGATIVE (NEGATIVE)
[2016-07-13] MEDS: LORazepam 2 MG TABLET PO PRN (21:52)
[2016-07-13 21:56] VITALS: BP 111/73
[2016-07-14 05:40] VITALS: BP 126/78
[2016-07-14] MEDS: LORazepam 2 MG TABLET PO PRN ×3 (05:43→17:33)
[2016-07-14 08:01] VITALS: BP 108/70
[2016-07-14] MEDS: NICOTINE 14 MG/24 HOUR PATCH TD SCH (10:14)
[2016-07-14] MEDS: QUEtiapine FUMARATE 300 MG TABLET PO SCH ×2 (10:14→16:39)
[2016-07-14] MEDS: LITHIUM CARBONATE 300 MG CAPSULE PO SCH ×2 (10:14→16:39)
[2016-07-14] MEDS: DIVALPROEX SODIUM 500 MG DR TABLET PO SCH ×2 (10:15→16:39)
[2016-07-14 16:08] VITALS: BP 112/70
[2016-07-15 00:02] VITALS: BP 102/68
[2016-07-15] MEDS: LORazepam 2 MG TABLET PO PRN ×3 (00:04→16:12)
[2016-07-15 08:02] VITALS: BP 100/64
[2016-07-15] MEDS: NICOTINE 14 MG/24 HOUR PATCH TD SCH (08:25)
[2016-07-15] MEDS: DIVALPROEX SODIUM 500 MG DR TABLET PO SCH ×2 (08:25→16:11)
[2016-07-15] MEDS: LITHIUM CARBONATE 300 MG CAPSULE PO SCH ×2 (08:26→16:12)
[2016-07-15] MEDS: QUEtiapine FUMARATE 300 MG TABLET PO SCH ×2 (08:26→16:12)
[2016-07-15] MEDS ORDERED: ALBUTEROL SULFATE HFA 90 MCG/PUFF 8 GM INHALER IH PRN (09:00)
[2016-07-15] MEDS ORDERED: DOCUSATE SODIUM 100 MG CAPSULE PO PRN (09:00)
[2016-07-15] MEDS ORDERED: ACETAMINOPHEN 325 MG TABLET PO PRN (09:00)
[2016-07-15 16:08] VITALS: BP 102/67
[2016-07-15] MEDS: ZOLPIDEM TARTRATE 10 MG TABLET PO PRN (20:58)
[2016-07-16 05:17] VITALS: BP 101/66
[2016-07-16] MEDS: LORazepam 2 MG TABLET PO PRN ×2 (05:20→14:38)
[2016-07-16] MEDS: NICOTINE 14 MG/24 HOUR PATCH TD SCH (08:28)
[2016-07-16] MEDS: DIVALPROEX SODIUM 500 MG DR TABLET PO SCH ×2 (08:28→16:44)
[2016-07-16] MEDS: LITHIUM CARBONATE 300 MG CAPSULE PO SCH ×2 (08:28→16:44)
[2016-07-16] MEDS: QUEtiapine FUMARATE 300 MG TABLET PO SCH ×2 (08:28→16:44)
[2016-07-16 08:45] VITALS: BP 95/65
[2016-07-16 16:31] VITALS: BP 133/79
[2016-07-17 02:21] VITALS: BP 98/70
[2016-07-17 08:15] VITALS: BP 84/46
[2016-07-17 09:02] LABS: CHOL/HDL RATIO 3.3 (3.9-5.7)
[2016-07-17 09:13] VITALS: BP 106/77
[2016-07-17] MEDS: DIVALPROEX SODIUM 500 MG DR TABLET PO SCH ×2 (09:23→16:44)
[2016-07-17] MEDS: NICOTINE 14 MG/24 HOUR PATCH TD SCH (09:23)
[2016-07-17] MEDS: LITHIUM CARBONATE 300 MG CAPSULE PO SCH ×2 (09:23→16:44)
[2016-07-17] MEDS: QUEtiapine FUMARATE 300 MG TABLET PO SCH ×2 (09:23→16:45)
[2016-07-17] MEDS: QUEtiapine FUMARATE 100 MG TABLET PO PRN (11:18)
[2016-07-17] MEDS: LORazepam 2 MG TABLET PO PRN ×2 (11:51→16:45)
[2016-07-17 11:52] VITALS: BP 107/66
[2016-07-17 16:25] VITALS: BP 103/58
[2016-07-17 16:45] VITALS: BP 112/62
[2016-07-17] MEDS: ZOLPIDEM TARTRATE 10 MG TABLET PO PRN (21:10)
[2016-07-18 03:43] VITALS: BP 89/55
[2016-07-18 08:20] VITALS: BP 110/76
[2016-07-18] MEDS: NICOTINE 14 MG/24 HOUR PATCH TD SCH (09:09)
[2016-07-18] MEDS: QUEtiapine FUMARATE 300 MG TABLET PO SCH ×2 (09:10→17:43)
[2016-07-18] MEDS: LITHIUM CARBONATE 300 MG CAPSULE PO SCH (09:10)
[2016-07-18] MEDS: DIVALPROEX SODIUM 500 MG DR TABLET PO SCH ×2 (09:10→17:43)
[2016-07-18] MEDS: LORazepam 2 MG TABLET PO PRN ×2 (10:19→17:43)
[2016-07-18] MEDS ORDERED: DiphenhydrAMINE HCL 50 MG/ML VIAL IM ONE (10:30)
[2016-07-18] MEDS ORDERED: HALOPERIDOL LACTATE 5 MG/ML VIAL IM ONE (10:30)
[2016-07-18 11:06] VITALS: BP 115/84
[2016-07-18] MEDS: QUEtiapine FUMARATE 100 MG TABLET PO PRN (15:09)
[2016-07-18] MEDS: ZOLPIDEM TARTRATE 10 MG TABLET PO PRN (20:35)
[2016-07-18] MEDS: LITHIUM CARBONATE 600 MG CAPSULE PO SCH (20:35)
[2016-07-19 02:06] VITALS: BP 101/77
[2016-07-19 08:02] VITALS: BP 112/60
[2016-07-19] MEDS: NICOTINE 14 MG/24 HOUR PATCH TD SCH (08:22)
[2016-07-19] MEDS: DIVALPROEX SODIUM 500 MG DR TABLET PO SCH ×2 (08:23→17:13)
[2016-07-19] MEDS: LITHIUM CARBONATE 300 MG CAPSULE PO SCH (08:23)
[2016-07-19] MEDS: QUEtiapine FUMARATE 300 MG TABLET PO SCH ×2 (08:23→17:13)
[2016-07-19] MEDS: QUEtiapine FUMARATE 100 MG TABLET PO PRN (12:51)
[2016-07-19 16:00] VITALS: BP 110/75
[2016-07-19] MEDS: LORazepam 2 MG TABLET PO PRN (17:13)
[2016-07-19] MEDS: LITHIUM CARBONATE 600 MG CAPSULE PO SCH (21:23)
[2016-07-19] MEDS: ZOLPIDEM TARTRATE 10 MG TABLET PO PRN (21:23)
[2016-07-20 03:43] VITALS: BP 110/89
[2016-07-20] MEDS: QUEtiapine FUMARATE 300 MG TABLET PO SCH ×2 (08:25→17:02)
[2016-07-20] MEDS: LITHIUM CARBONATE 300 MG CAPSULE PO SCH (08:25)
[2016-07-20] MEDS: DIVALPROEX SODIUM 500 MG DR TABLET PO SCH ×2 (08:25→17:02)
[2016-07-20] MEDS: NICOTINE 14 MG/24 HOUR PATCH TD SCH (08:25)
[2016-07-20 08:31] VITALS: BP 105/73
[2016-07-20 16:12] VITALS: BP 114/73
[2016-07-20] MEDS: LORazepam 2 MG TABLET PO PRN (17:02)
[2016-07-20] MEDS: LITHIUM CARBONATE 600 MG CAPSULE PO SCH (20:05)
[2016-07-20] MEDS: ZOLPIDEM TARTRATE 10 MG TABLET PO PRN (20:05)
[2016-07-21 00:01] VITALS: BP 104/63
[2016-07-21 08:11] VITALS: BP 122/69
[2016-07-21] MEDS: DIVALPROEX SODIUM 500 MG DR TABLET PO SCH ×2 (08:15→16:21)
[2016-07-21] MEDS: LITHIUM CARBONATE 300 MG CAPSULE PO SCH (08:15)
[2016-07-21] MEDS: QUEtiapine FUMARATE 300 MG TABLET PO SCH ×2 (08:16→16:21)
[2016-07-21] MEDS: NICOTINE 14 MG/24 HOUR PATCH TD SCH (08:16)
[2016-07-21 16:10] VITALS: BP 104/67
[2016-07-21] MEDS: LORazepam 2 MG TABLET PO PRN (16:21)
[2016-07-21] MEDS: ZOLPIDEM TARTRATE 10 MG TABLET PO PRN (21:08)
[2016-07-21] MEDS: LITHIUM CARBONATE 600 MG CAPSULE PO SCH (21:08)
[2016-07-22 01:55] VITALS: BP 107/78
[2016-07-22 08:02] VITALS: BP 115/60
[2016-07-22] MEDS: LITHIUM CARBONATE 300 MG CAPSULE PO SCH (08:23)
[2016-07-22] MEDS: QUEtiapine FUMARATE 300 MG TABLET PO SCH (08:23)
[2016-07-22] MEDS: NICOTINE 14 MG/24 HOUR PATCH TD SCH (08:23)
[2016-07-22] MEDS: DIVALPROEX SODIUM 500 MG DR TABLET PO SCH (08:23)
[2016-07-22] MEDS ORDERED: LITH600 PO (08:25)
[2016-08-18] MEDS ORDERED: MIRT15 PO (19:50)
[2016-09-04] MEDS ORDERED: LITH300C3 PO (08:44)
[2016-09-04] MEDS ORDERED: LITH600 PO (08:44)
[2016-09-04] MEDS ORDERED: OMEP20 PO (08:44)
[2016-09-04] MEDS ORDERED: QUET200T PO (08:44)
[2016-09-04] MEDS ORDERED: LEVO75 PO (08:44)
[2016-09-04] MEDS ORDERED: OMEG-11 PO (08:44)
== END 2016-07-22 13:25 | disposition home or self-care (01) | DRG 750 ==
LOC: EMS 17:32 → B2S 20:11
DX: F25.0 Schizoaffective disorder, bipolar type (principal); R45.851 Suicidal ideations; J44.9 Chronic obstructive pulmonary disease, unspecified; F17.210 Nicotine dependence, cigarettes, uncomplicated; K21.9 Gastro-esophageal reflux disease without esophagitis; K59.09 Other constipation; J45.909 Unspecified asthma, uncomplicated; Z88.2 Allergy status to sulfonamides; Z88.6 Allergy status to analgesic agent; Z91.013 Allergy to seafood; Z90.49 Acquired absence of other specified parts of digestive tract; Z79.899 Other long term (current) drug therapy; Z82.0 Family history of epilepsy and other diseases of the nervous system; Z71.6 Tobacco abuse counseling
CPT/HCPCS: 87081; 99285; G0480; J1200; J1630

== ENCOUNTER 2016-09-05 21:04 | Emergency (ER) | payer MEDICAID, OTHER ==
[~2016-09-05] VITALS: Ht 165.1 cm; Wt 81.8 kg
[~2016-09-05 21:04] MED LIST changes: +LEVO75 PO; +LITH600 PO; +OMEG-11 PO; +OMEP20 PO; +QUET200T PO; -QUET300T2 PO
[2016-09-05 21:29] LABS: BASOPHILS # (AUTO) 0.04 K/uL (0.00-0.20); BASOPHILS % (AUTO) 0.7 % (0.0-2.0); EOSINOPHILS % (AUTO) 0.05 % (1.0-6.0); HEMATOCRIT 42.8 % (36-46); HEMOGLOBIN 14.3 g/dL (12.0-16.0); LYMPHOCYTES # (AUTO) 1.7 K/uL (1.0-4.8); LYMPHOCYTES % (AUTO) 28.7 % (22.0-44.0); MEAN CORPUSCULAR HEMOGLOBIN 32.5 pg (26.0-34.0); MEAN CORPUSCULAR HGB CONC 33.4 G/dL (31.0-37.0); MEAN CORPUSCULAR VOLUME 97 fL (80-100); MONOCYTES # (AUTO) 0.5 K/uL (0.1-1.0); NEUTROPHILS # (AUTO) 3.8 K/uL (1.8-7.7); NEUTROPHILS % (AUTO) 62.6 % (40.0-70.0); PLATELET COUNT (AUTO) 251 K/uL (150-450); RED BLOOD CELL COUNT(AUTO) 4.39 MIL/uL (4.00-5.20); RED CELL DISTRIBUTION WIDTH 13.9 % (11.5-14.5); WHITE BLOOD COUNT (AUTO) 6.1 K/uL (4.5-11.0)
[2016-09-05 21:38] LABS: ANION GAP 7 mmol/L (8-16); CALCIUM, TOTAL 8.5 mg/dL (8.8-10.5); CARBON DIOXIDE 25 mmol/L (22-29); CHLORIDE 108 mmol/L (98-107); CREATININE 1.03 mg/dL (0.60-1.30); GLOMERULAR FILTR. RATE CALC 58 mL/min (>60); POTASSIUM 3.8 mmol/L (3.5-5.1); SODIUM SERUM 140 mmol/L (136-145); UREA NITROGEN, BLOOD 6 mg/dL (7-18)
[2016-09-05 21:43] LABS: LITHIUM 0.68 mmol/L (0.60-1.20)
[2016-09-05 21:45] LABS: ALANINE AMINOTRANSFERASE 16 U/L (12-78); ALBUMIN 3.5 g/dL (3.4-5.0); ASPARTATE AMINOTRANSFERASE 8 U/L (15-37); BILIRUBIN,TOTAL 0.2 mg/dL (0.1-1.0); TOTAL PROTEIN, SERUM 6.7 g/dL (6.4-8.2); VALPROIC ACID 36 mcg/mL (50-100)
[2016-09-05] MEDS ORDERED: HALOPERIDOL LACTATE 5 MG/ML VIAL IM ONE (23:30)
[2016-09-05] MEDS ORDERED: LORazepam 2 MG/ML VIAL IM ONE (23:30)
[2016-09-06 00:44] VITALS: BP 124/64
== END 2016-09-06 00:45 | disposition home or self-care (01) ==
LOC: EMS 21:07
DX: F25.9 Schizoaffective disorder, unspecified (principal); F31.9 Bipolar disorder, unspecified; J45.909 Unspecified asthma, uncomplicated; J44.9 Chronic obstructive pulmonary disease, unspecified; K21.9 Gastro-esophageal reflux disease without esophagitis; F17.210 Nicotine dependence, cigarettes, uncomplicated; Z88.1 Allergy status to other antibiotic agents; Z88.5 Allergy status to narcotic agent; Z91.013 Allergy to seafood
CPT/HCPCS: 36415; 80053; 80164; 80178; 80307; 84703; 85025; 96372; 99285; G0480; J1630; J2060

== ENCOUNTER 2016-09-23 21:12 | Inpatient (IN) | payer MEDICAID, OTHER ==
[~2016-09-23] VITALS: Ht 157.5 cm; Wt 82.1 kg
[2016-09-23 22:13] LABS: BASOPHILS % (AUTO) 0.2 % (0.0-2.0); EOSINOPHILS % (AUTO) 0.2 % (1.0-6.0); HEMATOCRIT 44.4 % (36-46); HEMOGLOBIN 15.2 g/dL (12.0-16.0); LYMPHOCYTES # (AUTO) 3.1 K/uL (1.0-4.8); LYMPHOCYTES % (AUTO) 30.3 % (22.0-44.0); MEAN CORPUSCULAR HEMOGLOBIN 32.6 pg (26.0-34.0); MEAN CORPUSCULAR HGB CONC 34.2 G/dL (31.0-37.0); MEAN CORPUSCULAR VOLUME 95 fL (80-100); MONOCYTES # (AUTO) 1.2 K/uL (0.1-1.0); MONOCYTES % (AUTO) 11.2 % (2.0-9.0); NEUTROPHILS % (AUTO) 58.1 % (40.0-70.0); PLATELET COUNT (AUTO) 249 K/uL (150-450); RED BLOOD CELL COUNT(AUTO) 4.66 MIL/uL (4.00-5.20); RED CELL DISTRIBUTION WIDTH 13.9 % (11.5-14.5); WHITE BLOOD COUNT (AUTO) 10.3 K/uL (4.5-11.0)
[2016-09-23] MEDS ORDERED: HALOPERIDOL LACTATE 5 MG/ML VIAL IM ONE (22:15)
[2016-09-23] MEDS ORDERED: DiphenhydrAMINE HCL 50 MG/ML VIAL IM ONE (22:15)
[2016-09-23] MEDS ORDERED: LORazepam 2 MG/ML VIAL IM ONE (22:15)
[2016-09-23 22:27] LABS: LITHIUM 0.21 mmol/L (0.60-1.20)
[2016-09-23 22:42] LABS: ANION GAP 14 mmol/L (8-16); CALCIUM, TOTAL 9.5 mg/dL (8.8-10.5); CARBON DIOXIDE 22 mmol/L (22-29); CHLORIDE 106 mmol/L (98-107); GLOMERULAR FILTR. RATE CALC 49 mL/min (>60); POTASSIUM 3.5 mmol/L (3.5-5.1); SODIUM SERUM 142 mmol/L (136-145); UREA NITROGEN, BLOOD 5 mg/dL (7-18)
[2016-09-23 22:48] LABS: ALANINE AMINOTRANSFERASE 9 U/L (12-78); ALBUMIN 3.7 g/dL (3.4-5.0); ASPARTATE AMINOTRANSFERASE 8 U/L (15-37); BILIRUBIN,TOTAL 0.6 mg/dL (0.1-1.0); TOTAL PROTEIN, SERUM 6.7 g/dL (6.4-8.2)
[2016-09-23 23:10] LABS: CHOL/HDL RATIO 3.1 (3.9-5.7); VALPROIC ACID 56 mcg/mL (50-100)
[2016-09-24] MEDS: ZOLPIDEM TARTRATE 10 MG TABLET PO PRN (00:22)
[2016-09-24 00:59] VITALS: BP 123/70
[2016-09-24 08:14] VITALS: BP 107/65
[2016-09-24] MEDS: OMEPRAZOLE 20 MG CAPSULE PO SCH (09:10)
[2016-09-24] MEDS: HALOPERIDOL 5 MG TABLET PO PRN (09:42)
[2016-09-24] MEDS: LORazepam 2 MG TABLET PO PRN (09:42)
[2016-09-24] MEDS: DIVALPROEX SODIUM 500 MG DR TABLET PO SCH ×2 (13:08→16:20)
[2016-09-24] MEDS: QUEtiapine FUMARATE 200 MG TABLET PO SCH ×2 (13:08→16:20)
[2016-09-24] MEDS ORDERED: BACITRACIN 28.4 GM OINTMENT TP PRN (14:00)
[2016-09-24 16:40] VITALS: BP 100/65
[2016-09-24] MEDS ORDERED: QUEtiapine FUMARATE 200 MG TABLET PO SCH ×2 (17:00)
[2016-09-24] MEDS ORDERED: DIVALPROEX SODIUM 500 MG DR TABLET PO SCH ×2 (17:00)
[2016-09-25] MEDS: LEVOTHYROXINE SODIUM 75 MCG TABLET PO SCH (06:30)
[2016-09-25 06:58] VITALS: BP 110/66
[2016-09-25] MEDS: LORazepam 2 MG TABLET PO PRN ×2 (07:13→16:55)
[2016-09-25] MEDS ORDERED: LORazepam 2 MG/ML VIAL IM ONE (08:00)
[2016-09-25] MEDS ORDERED: HALOPERIDOL LACTATE 5 MG/ML VIAL IM ONE (08:00)
[2016-09-25] MEDS ORDERED: DiphenhydrAMINE HCL 50 MG/ML VIAL IM ONE (08:00)
[2016-09-25] MEDS ORDERED: LORazepam 2 MG/ML VIAL ONE (08:02)
[2016-09-25] MEDS ORDERED: HALOPERIDOL LACTATE 5 MG/ML VIAL ONE (08:02)
[2016-09-25] MEDS ORDERED: DiphenhydrAMINE HCL 50 MG/ML VIAL ONE (08:02)
[2016-09-25 08:05] VITALS: BP 111/68
[2016-09-25] MEDS: QUEtiapine FUMARATE 200 MG TABLET PO SCH ×2 (08:12→16:55)
[2016-09-25] MEDS: OMEPRAZOLE 20 MG CAPSULE PO SCH (08:12)
[2016-09-25] MEDS: DIVALPROEX SODIUM 500 MG DR TABLET PO SCH ×2 (08:12→16:54)
[2016-09-25 08:35] VITALS: BP 123/57
[2016-09-25 09:34] LABS: LITHIUM < 0.20 mmol/L (0.60-1.20)
[2016-09-25 10:00] LABS: VALPROIC ACID 77 mcg/mL (50-100)
[2016-09-25 16:22] VITALS: BP 108/66
[2016-09-25] MEDS: HALOPERIDOL 5 MG TABLET PO PRN (16:55)
[2016-09-26 02:50] VITALS: BP 116/65
[2016-09-26] MEDS: ZOLPIDEM TARTRATE 10 MG TABLET PO PRN (02:55)
[2016-09-26] MEDS: HALOPERIDOL 5 MG TABLET PO PRN ×4 (03:12→20:35)
[2016-09-26] MEDS: LORazepam 2 MG TABLET PO PRN ×4 (03:12→20:35)
[2016-09-26] MEDS: LEVOTHYROXINE SODIUM 75 MCG TABLET PO SCH (06:29)
[2016-09-26] MEDS: DIVALPROEX SODIUM 500 MG DR TABLET PO SCH ×2 (08:29→16:21)
[2016-09-26] MEDS: QUEtiapine FUMARATE 200 MG TABLET PO SCH ×2 (08:29→16:21)
[2016-09-26] MEDS: OMEPRAZOLE 20 MG CAPSULE PO SCH (08:29)
[2016-09-26 08:44] VITALS: BP 95/55
[2016-09-26 16:07] VITALS: BP 122/64
[2016-09-27] MEDS: LEVOTHYROXINE SODIUM 75 MCG TABLET PO SCH (06:21)
[2016-09-27 06:52] VITALS: BP 100/62
[2016-09-27] MEDS: LORazepam 2 MG TABLET PO PRN ×3 (08:48→20:03)
[2016-09-27] MEDS: DIVALPROEX SODIUM 500 MG DR TABLET PO SCH ×2 (08:48→16:44)
[2016-09-27] MEDS: OMEPRAZOLE 20 MG CAPSULE PO SCH (08:48)
[2016-09-27] MEDS: QUEtiapine FUMARATE 200 MG TABLET PO SCH ×2 (08:48→16:44)
[2016-09-27 08:50] VITALS: BP 102/63
[2016-09-27] MEDS: HALOPERIDOL 5 MG TABLET PO PRN ×2 (12:43→16:58)
[2016-09-27 16:05] VITALS: BP 108/68
[2016-09-28 05:10] VITALS: BP 112/78
[2016-09-28] MEDS: LORazepam 2 MG TABLET PO PRN ×3 (05:23→20:50)
[2016-09-28] MEDS: HALOPERIDOL 5 MG TABLET PO PRN ×3 (05:23→20:50)
[2016-09-28] MEDS: LEVOTHYROXINE SODIUM 75 MCG TABLET PO SCH (06:13)
[2016-09-28 08:33] VITALS: BP 110/62
[2016-09-28] MEDS: DIVALPROEX SODIUM 500 MG DR TABLET PO SCH ×2 (08:52→16:11)
[2016-09-28] MEDS: OMEPRAZOLE 20 MG CAPSULE PO SCH (08:53)
[2016-09-28] MEDS: QUEtiapine FUMARATE 200 MG TABLET PO SCH ×2 (08:53→16:11)
[2016-09-29 02:52] VITALS: BP 105/85
[2016-09-29] MEDS: LORazepam 2 MG TABLET PO PRN ×2 (02:55→16:01)
[2016-09-29] MEDS: HALOPERIDOL 5 MG TABLET PO PRN ×4 (02:55→20:38)
[2016-09-29] MEDS: LEVOTHYROXINE SODIUM 75 MCG TABLET PO SCH (06:52)
[2016-09-29] MEDS: OMEPRAZOLE 20 MG CAPSULE PO SCH (08:27)
[2016-09-29] MEDS: QUEtiapine FUMARATE 200 MG TABLET PO SCH ×2 (08:27→16:00)
[2016-09-29] MEDS: DIVALPROEX SODIUM 500 MG DR TABLET PO SCH ×2 (08:27→16:01)
[2016-09-29 08:36] VITALS: BP 97/62
[2016-09-29] MEDS: NICOTINE 21 MG/24 HOUR PATCH TD SCH (14:38)
[2016-09-29 16:28] VITALS: BP 135/85
[2016-09-29] MEDS: ZOLPIDEM TARTRATE 10 MG TABLET PO PRN (21:03)
[2016-09-30] MEDS: LEVOTHYROXINE SODIUM 75 MCG TABLET PO SCH (06:28)
[2016-09-30 06:46] VITALS: BP 116/72
[2016-09-30 08:25] VITALS: BP 102/69
[2016-09-30] MEDS: OMEPRAZOLE 20 MG CAPSULE PO SCH (08:30)
[2016-09-30] MEDS: QUEtiapine FUMARATE 200 MG TABLET PO SCH ×2 (08:30→16:13)
[2016-09-30] MEDS: DIVALPROEX SODIUM 500 MG DR TABLET PO SCH ×2 (08:30→16:13)
[2016-09-30] MEDS: NICOTINE 21 MG/24 HOUR PATCH TD SCH (08:30)
[2016-09-30] MEDS: LORazepam 2 MG TABLET PO PRN ×3 (08:33→20:57)
[2016-09-30 16:23] VITALS: BP 110/76
[2016-09-30] MEDS: HALOPERIDOL 5 MG TABLET PO PRN ×2 (16:37→20:43)
[2016-09-30 20:45] VITALS: BP 107/72
[2016-09-30 20:56] VITALS: BP 107/74
[2016-09-30] MEDS: ZOLPIDEM TARTRATE 10 MG TABLET PO PRN (21:25)
[2016-10-01 05:00] VITALS: BP 105/68
[2016-10-01] MEDS: LEVOTHYROXINE SODIUM 75 MCG TABLET PO SCH ×2 (06:30→06:42)
[2016-10-01] MEDS ORDERED: MAG HYDROX/AL HYDROX/SIMETH 30 ML SUSP UDCUP PO PRN (08:00)
[2016-10-01] MEDS: LORazepam 2 MG TABLET PO PRN ×3 (08:11→21:30)
[2016-10-01] MEDS: QUEtiapine FUMARATE 200 MG TABLET PO SCH ×2 (08:12→16:31)
[2016-10-01] MEDS: DIVALPROEX SODIUM 500 MG DR TABLET PO SCH ×2 (08:12→16:31)
[2016-10-01] MEDS: NICOTINE 21 MG/24 HOUR PATCH TD SCH (08:12)
[2016-10-01] MEDS: HALOPERIDOL 5 MG TABLET PO PRN ×2 (08:12→14:36)
[2016-10-01 08:15] VITALS: BP 103/70
[2016-10-01] MEDS: PANTOPRAZOLE SODIUM 40 MG DR TABLET PO SCH (08:23)
[2016-10-01] MEDS ORDERED: ACETAMINOPHEN 325 MG TABLET PO PRN (10:30)
[2016-10-01] MEDS ORDERED: IBUPROFEN 600 MG TABLET PO PRN (10:30)
[2016-10-01 16:11] VITALS: BP 116/74
[2016-10-01] MEDS: ZOLPIDEM TARTRATE 10 MG TABLET PO PRN (21:30)
[2016-10-02] MEDS: LEVOTHYROXINE SODIUM 75 MCG TABLET PO SCH (06:30)
[2016-10-02] MEDS: LORazepam 2 MG TABLET PO PRN ×2 (08:13→16:22)
[2016-10-02] MEDS: PANTOPRAZOLE SODIUM 40 MG DR TABLET PO SCH (08:13)
[2016-10-02] MEDS: QUEtiapine FUMARATE 200 MG TABLET PO SCH ×2 (08:13→16:22)
[2016-10-02] MEDS: HALOPERIDOL 5 MG TABLET PO PRN ×2 (08:13→16:22)
[2016-10-02] MEDS: DIVALPROEX SODIUM 500 MG DR TABLET PO SCH ×2 (08:13→16:22)
[2016-10-02] MEDS: NICOTINE 21 MG/24 HOUR PATCH TD SCH (08:14)
[2016-10-02 09:24] VITALS: BP 101/63
[2016-10-02 16:00] VITALS: BP 115/71
[2016-10-02] MEDS: ZOLPIDEM TARTRATE 10 MG TABLET PO PRN (21:03)
[2016-10-03] MEDS: LEVOTHYROXINE SODIUM 75 MCG TABLET PO SCH (06:39)
[2016-10-03 07:06] VITALS: BP 100/70
[2016-10-03 08:24] VITALS: BP 94/63
[2016-10-03 09:09] VITALS: BP 104/74
[2016-10-03] MEDS: DIVALPROEX SODIUM 500 MG DR TABLET PO SCH ×2 (09:36→16:20)
[2016-10-03] MEDS: QUEtiapine FUMARATE 200 MG TABLET PO SCH ×2 (09:36→16:20)
[2016-10-03] MEDS: NICOTINE 21 MG/24 HOUR PATCH TD SCH (09:36)
[2016-10-03] MEDS: PANTOPRAZOLE SODIUM 40 MG DR TABLET PO SCH (09:36)
[2016-10-03 12:09] VITALS: BP 111/77
[2016-10-03] MEDS: LORazepam 2 MG TABLET PO PRN ×2 (12:11→20:46)
[2016-10-03] MEDS: HALOPERIDOL 5 MG TABLET PO PRN ×2 (12:11→18:32)
[2016-10-03 16:32] VITALS: BP 131/69
[2016-10-03] MEDS: ZOLPIDEM TARTRATE 10 MG TABLET PO PRN (21:12)
[2016-10-04 06:39] VITALS: BP 119/78
[2016-10-04] MEDS: LEVOTHYROXINE SODIUM 75 MCG TABLET PO SCH (06:40)
[2016-10-04 08:41] VITALS: BP 151/101
[2016-10-04] MEDS ORDERED: HALOPERIDOL LACTATE 5 MG/ML VIAL IM PRN (09:45)
[2016-10-04] MEDS: DIVALPROEX SODIUM 500 MG DR TABLET PO SCH ×2 (10:07→17:00)
[2016-10-04] MEDS: LORazepam 2 MG TABLET PO PRN ×3 (10:07→18:14)
[2016-10-04] MEDS: PANTOPRAZOLE SODIUM 40 MG DR TABLET PO SCH (10:07)
[2016-10-04] MEDS: QUEtiapine FUMARATE 200 MG TABLET PO SCH ×2 (10:07→17:00)
[2016-10-04] MEDS: NICOTINE 21 MG/24 HOUR PATCH TD SCH (10:08)
[2016-10-04] MEDS: HALOPERIDOL 5 MG TABLET PO PRN ×2 (10:58→15:25)
[2016-10-04 17:34] VITALS: BP 112/74
[2016-10-04] MEDS: ZOLPIDEM TARTRATE 10 MG TABLET PO PRN (21:08)
[2016-10-05 03:30] VITALS: BP 115/70
[2016-10-05] MEDS: LORazepam 2 MG TABLET PO PRN ×3 (03:34→14:13)
[2016-10-05] MEDS: LEVOTHYROXINE SODIUM 75 MCG TABLET PO SCH (07:02)
[2016-10-05 08:02] VITALS: BP 109/70
[2016-10-05] MEDS: PANTOPRAZOLE SODIUM 40 MG DR TABLET PO SCH (08:03)
[2016-10-05] MEDS: DIVALPROEX SODIUM 500 MG DR TABLET PO SCH ×2 (08:03→16:24)
[2016-10-05] MEDS: QUEtiapine FUMARATE 200 MG TABLET PO SCH ×2 (08:03→16:24)
[2016-10-05] MEDS: NICOTINE 21 MG/24 HOUR PATCH TD SCH (08:04)
[2016-10-05 16:04] VITALS: BP 105/64
[2016-10-05] MEDS: HALOPERIDOL 5 MG TABLET PO PRN (16:42)
[2016-10-06 06:10] VITALS: BP 113/71
[2016-10-06] MEDS: LORazepam 2 MG TABLET PO PRN ×3 (06:24→16:49)
[2016-10-06] MEDS: LEVOTHYROXINE SODIUM 75 MCG TABLET PO SCH (06:29)
[2016-10-06] MEDS: HALOPERIDOL 5 MG TABLET PO PRN ×2 (08:06→14:20)
[2016-10-06] MEDS: PANTOPRAZOLE SODIUM 40 MG DR TABLET PO SCH (08:06)
[2016-10-06] MEDS: DIVALPROEX SODIUM 500 MG DR TABLET PO SCH ×2 (08:06→16:17)
[2016-10-06] MEDS: QUEtiapine FUMARATE 200 MG TABLET PO SCH ×2 (08:06→16:17)
[2016-10-06] MEDS: NICOTINE 21 MG/24 HOUR PATCH TD SCH (08:06)
[2016-10-06 09:07] VITALS: BP 115/60
[2016-10-06 16:42] VITALS: BP 127/72
[2016-10-06 21:21] VITALS: BP 120/73
[2016-10-06] MEDS: ZOLPIDEM TARTRATE 10 MG TABLET PO PRN (21:22)
[2016-10-07 00:03] VITALS: BP 102/67
[2016-10-07 04:40] VITALS: BP 108/71
[2016-10-07] MEDS: LORazepam 2 MG TABLET PO PRN ×4 (04:45→22:06)
[2016-10-07] MEDS: LEVOTHYROXINE SODIUM 75 MCG TABLET PO SCH (06:31)
[2016-10-07 08:59] VITALS: BP 104/60
[2016-10-07] MEDS: DIVALPROEX SODIUM 500 MG DR TABLET PO SCH ×2 (09:38→16:53)
[2016-10-07] MEDS: QUEtiapine FUMARATE 200 MG TABLET PO SCH ×2 (09:38→16:53)
[2016-10-07] MEDS: PANTOPRAZOLE SODIUM 40 MG DR TABLET PO SCH (09:38)
[2016-10-07] MEDS: NICOTINE 21 MG/24 HOUR PATCH TD SCH (09:46)
[2016-10-07] MEDS: HALOPERIDOL 5 MG TABLET PO PRN ×3 (09:50→22:06)
[2016-10-07] MEDS ORDERED: GuaiFENesin/D-METHORPHAN [SUGAR-FREE] 200-20MG/10 ML SYRUP UDCUP PO PRN (14:45)
[2016-10-07] MEDS ORDERED: BENZOCAINE/MENTHOL LOZENGE PO PRN (14:45)
[2016-10-07 16:00] VITALS: BP 102/58
[2016-10-07] MEDS: ZOLPIDEM TARTRATE 10 MG TABLET PO PRN (20:27)
[2016-10-08 06:41] VITALS: BP 98/66
[2016-10-08] MEDS: LEVOTHYROXINE SODIUM 75 MCG TABLET PO SCH (06:41)
[2016-10-08] MEDS: LORazepam 2 MG TABLET PO PRN ×3 (07:18→21:46)
[2016-10-08] MEDS: NICOTINE 21 MG/24 HOUR PATCH TD SCH (08:10)
[2016-10-08] MEDS: DIVALPROEX SODIUM 500 MG DR TABLET PO SCH ×2 (08:10→16:07)
[2016-10-08] MEDS: PANTOPRAZOLE SODIUM 40 MG DR TABLET PO SCH (08:10)
[2016-10-08] MEDS: QUEtiapine FUMARATE 200 MG TABLET PO SCH ×2 (08:10→16:07)
[2016-10-08 08:13] VITALS: BP 95/54
[2016-10-08 09:09] VITALS: BP 96/66
[2016-10-08] MEDS: HALOPERIDOL 5 MG TABLET PO PRN (14:18)
[2016-10-08 16:00] VITALS: BP 102/68
[2016-10-08] MEDS: ZOLPIDEM TARTRATE 10 MG TABLET PO PRN (20:02)
[2016-10-09 06:23] VITALS: BP 100/60
[2016-10-09] MEDS: LEVOTHYROXINE SODIUM 75 MCG TABLET PO SCH (06:30)
[2016-10-09] MEDS: LORazepam 2 MG TABLET PO PRN ×2 (06:45→16:10)
[2016-10-09] MEDS: NICOTINE 21 MG/24 HOUR PATCH TD SCH (08:28)
[2016-10-09] MEDS: DIVALPROEX SODIUM 500 MG DR TABLET PO SCH ×2 (08:28→16:09)
[2016-10-09] MEDS: QUEtiapine FUMARATE 200 MG TABLET PO SCH ×2 (08:28→16:09)
[2016-10-09] MEDS: PANTOPRAZOLE SODIUM 40 MG DR TABLET PO SCH (08:28)
[2016-10-09] MEDS: HALOPERIDOL 5 MG TABLET PO PRN ×2 (09:52→16:10)
[2016-10-09 13:32] VITALS: BP 117/69
[2016-10-09 16:06] VITALS: BP 110/66
[2016-10-09] MEDS: ZOLPIDEM TARTRATE 10 MG TABLET PO PRN (20:37)
[2016-10-10] MEDS: LEVOTHYROXINE SODIUM 75 MCG TABLET PO SCH (06:38)
[2016-10-10 08:10] VITALS: BP 102/60
[2016-10-10] MEDS: PANTOPRAZOLE SODIUM 40 MG DR TABLET PO SCH (08:13)
[2016-10-10] MEDS: QUEtiapine FUMARATE 200 MG TABLET PO SCH ×2 (08:13→16:24)
[2016-10-10] MEDS: DIVALPROEX SODIUM 500 MG DR TABLET PO SCH ×2 (08:13→16:24)
[2016-10-10] MEDS: NICOTINE 21 MG/24 HOUR PATCH TD SCH (08:13)
[2016-10-10] MEDS: LORazepam 2 MG TABLET PO PRN ×2 (10:14→21:58)
[2016-10-10] MEDS: HALOPERIDOL 5 MG TABLET PO PRN ×2 (10:16→21:58)
[2016-10-10 16:00] VITALS: BP 113/65
[2016-10-10] MEDS: ZOLPIDEM TARTRATE 10 MG TABLET PO PRN (20:53)
[2016-10-11] MEDS: LEVOTHYROXINE SODIUM 75 MCG TABLET PO SCH (06:43)
[2016-10-11] MEDS: PANTOPRAZOLE SODIUM 40 MG DR TABLET PO SCH (08:20)
[2016-10-11] MEDS: DIVALPROEX SODIUM 500 MG DR TABLET PO SCH (08:20)
[2016-10-11] MEDS: LORazepam 2 MG TABLET PO PRN (08:20)
[2016-10-11] MEDS: QUEtiapine FUMARATE 200 MG TABLET PO SCH (08:20)
[2016-10-11] MEDS: NICOTINE 21 MG/24 HOUR PATCH TD SCH (08:20)
[2016-10-11] MEDS: HALOPERIDOL 5 MG TABLET PO PRN (08:22)
[2016-10-11 09:02] VITALS: BP 115/81
[2016-10-11] MEDS ORDERED: PANT40TA25 PO (10:38)
== END 2016-10-11 13:32 | disposition home or self-care (01) | DRG 750 ==
LOC: EMS 21:14 → B3A 22:30 → B2S 10-06 19:40
DX: F25.0 Schizoaffective disorder, bipolar type (principal); J44.9 Chronic obstructive pulmonary disease, unspecified; R45.851 Suicidal ideations; K21.9 Gastro-esophageal reflux disease without esophagitis; D64.9 Anemia, unspecified; Z91.14 Patient's other noncompliance with medication regimen; Z78.1 Physical restraint status
CPT/HCPCS: 87081; 96372; 99285; G0480; J1200; J1630; J2060

== ENCOUNTER 2016-12-04 19:44 | Inpatient (IN) | payer MEDICAID, OTHER ==
[~2016-12-04] VITALS: Ht 167.6 cm; Wt 85.4 kg
[~2016-12-04 19:44] MED LIST changes: -LITH300C3 PO; -LITH600 PO; -OMEG-11 PO; -OMEP20 PO; +PANT40TA25 PO
[2016-12-04 20:28] LABS: BASOPHILS % (AUTO) 0.6 % (0.0-2.0); EOSINOPHILS % (AUTO) 0.1 % (1.0-6.0); HEMATOCRIT 41.6 % (36-46); HEMOGLOBIN 14.6 g/dL (12.0-16.0); LYMPHOCYTES # (AUTO) 2.7 K/uL (1.0-4.8); LYMPHOCYTES % (AUTO) 37.5 % (22.0-44.0); MEAN CORPUSCULAR HEMOGLOBIN 32.4 pg (26.0-34.0); MEAN CORPUSCULAR HGB CONC 35.2 G/dL (31.0-37.0); MEAN CORPUSCULAR VOLUME 92 fL (80-100); MONOCYTES # (AUTO) 0.8 K/uL (0.1-1.0); MONOCYTES % (AUTO) 11.1 % (2.0-9.0); NEUTROPHILS # (AUTO) 3.7 K/uL (1.8-7.7); NEUTROPHILS % (AUTO) 50.7 % (40.0-70.0); PLATELET COUNT (AUTO) 199 K/uL (150-450); RED BLOOD CELL COUNT(AUTO) 4.51 MIL/uL (4.00-5.20); RED CELL DISTRIBUTION WIDTH 14.1 % (11.5-14.5); WHITE BLOOD COUNT (AUTO) 7.3 K/uL (4.5-11.0)
[2016-12-04 20:38] LABS: ANION GAP 8 mmol/L (8-16); CALCIUM, TOTAL 8.9 mg/dL (8.8-10.5); CARBON DIOXIDE 26 mmol/L (22-29); CHLORIDE 103 mmol/L (98-107); CREATININE 1.04 mg/dL (0.60-1.30); GLOMERULAR FILTR. RATE CALC 57 mL/min (>60); POTASSIUM 3.9 mmol/L (3.5-5.1); SODIUM SERUM 137 mmol/L (136-145); UREA NITROGEN, BLOOD 11 mg/dL (7-18)
[2016-12-04 20:53] LABS: ACETAMINOPHEN 2 mcg/mL (10-30); ALANINE AMINOTRANSFERASE 10 U/L (12-78); ALBUMIN 3.4 g/dL (3.4-5.0); ASPARTATE AMINOTRANSFERASE 12 U/L (15-37); BILIRUBIN,TOTAL 0.2 mg/dL (0.1-1.0); THYROID STIMULATING HORMONE 4.03 uIU/mL (0.36-3.74); TOTAL PROTEIN, SERUM 6.4 g/dL (6.4-8.2); VALPROIC ACID 55 mcg/mL (50-100)
[2016-12-04 20:55] LABS: SALICYLATE 3.6 mg/dL (2.8-20.0)
[2016-12-04] MEDS ORDERED: MAGNESIUM HYDROXIDE SUSPENSION 30 ML UDCUP PO PRN (23:45)
[2016-12-04] MEDS ORDERED: LOPERAMIDE HCL 2 MG CAPSULE PO PRN (23:45)
[2016-12-04] MEDS ORDERED: MAG HYDROX/AL HYDROX/SIMETH ES 30 ML SUSPENSION UDCUP PO PRN (23:45)
[2016-12-04 23:58] LABS: SALICYLATE 3.5 mg/dL (2.8-20.0)
[2016-12-05] MEDS: LORazepam 2 MG TABLET PO PRN (10:37)
[2016-12-05] MEDS: HALOPERIDOL 5 MG TABLET PO PRN (13:19)
[2016-12-05] MEDS ORDERED: DiphenhydrAMINE HCL 50 MG/ML VIAL IM ONE (13:30)
[2016-12-05] MEDS ORDERED: LORazepam 2 MG/ML VIAL IM ONE (13:30)
[2016-12-05] MEDS ORDERED: HALOPERIDOL LACTATE 5 MG/ML VIAL IM ONE (13:30)
[2016-12-05] MEDS: QUEtiapine FUMARATE 200 MG TABLET PO SCH (18:26)
[2016-12-05] MEDS: DIVALPROEX SODIUM 500 MG ER TABLET PO SCH (18:26)
[2016-12-05] MEDS: ZOLPIDEM TARTRATE 10 MG TABLET PO PRN (20:20)
[2016-12-05 21:15] VITALS: BP 108/69
[2016-12-06] MEDS: LEVOTHYROXINE SODIUM 75 MCG TABLET PO SCH (06:36)
[2016-12-06] MEDS: DIVALPROEX SODIUM 500 MG ER TABLET PO SCH ×2 (08:14→15:48)
[2016-12-06] MEDS: LORazepam 2 MG TABLET PO PRN ×3 (08:14→16:38)
[2016-12-06] MEDS: QUEtiapine FUMARATE 200 MG TABLET PO SCH ×2 (08:14→15:49)
[2016-12-06] MEDS: NICOTINE 21 MG/24 HOUR PATCH TD SCH (08:14)
[2016-12-06 08:29] VITALS: BP 110/60
[2016-12-06] MEDS: HALOPERIDOL 5 MG TABLET PO PRN ×2 (12:27→16:38)
[2016-12-06 16:21] VITALS: BP 115/84
[2016-12-06] MEDS: ZOLPIDEM TARTRATE 10 MG TABLET PO PRN (20:23)
[2016-12-07] MEDS: LORazepam 2 MG TABLET PO PRN ×4 (00:52→23:29)
[2016-12-07 00:54] VITALS: BP 102/67
[2016-12-07] MEDS: LEVOTHYROXINE SODIUM 75 MCG TABLET PO SCH (06:46)
[2016-12-07 08:05] VITALS: BP 117/72
[2016-12-07] MEDS: QUEtiapine FUMARATE 200 MG TABLET PO SCH ×2 (08:13→16:27)
[2016-12-07] MEDS: DIVALPROEX SODIUM 500 MG ER TABLET PO SCH ×2 (08:13→16:27)
[2016-12-07] MEDS: NICOTINE 21 MG/24 HOUR PATCH TD SCH (08:13)
[2016-12-07] MEDS: HALOPERIDOL 5 MG TABLET PO PRN ×2 (14:26→23:29)
[2016-12-07] MEDS: ZOLPIDEM TARTRATE 10 MG TABLET PO PRN (20:10)
[2016-12-07 20:50] VITALS: BP 96/74
[2016-12-08] MEDS: LEVOTHYROXINE SODIUM 75 MCG TABLET PO SCH (06:39)
[2016-12-08 08:00] VITALS: BP 115/70
[2016-12-08] MEDS: LORazepam 2 MG TABLET PO PRN ×2 (09:16→14:30)
[2016-12-08] MEDS: DIVALPROEX SODIUM 500 MG ER TABLET PO SCH ×2 (09:16→16:12)
[2016-12-08] MEDS: QUEtiapine FUMARATE 200 MG TABLET PO SCH ×2 (09:16→16:12)
[2016-12-08] MEDS: NICOTINE 21 MG/24 HOUR PATCH TD SCH (09:25)
[2016-12-08] MEDS: HALOPERIDOL 5 MG TABLET PO PRN ×2 (12:12→21:27)
[2016-12-08 17:29] VITALS: BP 112/60
[2016-12-08] MEDS: ZOLPIDEM TARTRATE 10 MG TABLET PO PRN (20:05)
[2016-12-09] MEDS: LEVOTHYROXINE SODIUM 75 MCG TABLET PO SCH (06:58)
[2016-12-09] MEDS: NICOTINE 21 MG/24 HOUR PATCH TD SCH (07:56)
[2016-12-09] MEDS: DIVALPROEX SODIUM 500 MG ER TABLET PO SCH ×2 (07:56→16:20)
[2016-12-09] MEDS: LORazepam 2 MG TABLET PO PRN ×3 (07:56→20:58)
[2016-12-09] MEDS: QUEtiapine FUMARATE 200 MG TABLET PO SCH ×2 (07:56→16:20)
[2016-12-09] MEDS: HALOPERIDOL 5 MG TABLET PO PRN ×3 (07:56→20:58)
[2016-12-09 08:00] VITALS: BP 106/72
[2016-12-09 16:51] VITALS: BP 101/75
[2016-12-10] MEDS: ZOLPIDEM TARTRATE 10 MG TABLET PO PRN ×2 (00:22→20:49)
[2016-12-10] MEDS: LEVOTHYROXINE SODIUM 75 MCG TABLET PO SCH (06:30)
[2016-12-10 08:19] VITALS: BP 121/74
[2016-12-10] MEDS: DIVALPROEX SODIUM 500 MG ER TABLET PO SCH ×2 (09:25→15:47)
[2016-12-10] MEDS: QUEtiapine FUMARATE 200 MG TABLET PO SCH ×2 (09:26→15:48)
[2016-12-10] MEDS: NICOTINE 21 MG/24 HOUR PATCH TD SCH (09:28)
[2016-12-10] MEDS: HALOPERIDOL 5 MG TABLET PO PRN ×2 (12:31→20:49)
[2016-12-10] MEDS: LORazepam 2 MG TABLET PO PRN (12:31)
[2016-12-10 18:43] VITALS: BP 101/71
[2016-12-11] MEDS: LEVOTHYROXINE SODIUM 75 MCG TABLET PO SCH (06:25)
[2016-12-11 08:05] VITALS: BP 119/79
[2016-12-11] MEDS: DIVALPROEX SODIUM 500 MG ER TABLET PO SCH ×2 (09:14→16:26)
[2016-12-11] MEDS: QUEtiapine FUMARATE 200 MG TABLET PO SCH ×2 (09:14→16:26)
[2016-12-11] MEDS: NICOTINE 21 MG/24 HOUR PATCH TD SCH (09:20)
[2016-12-11] MEDS: HALOPERIDOL 5 MG TABLET PO PRN ×2 (13:01→21:00)
[2016-12-11] MEDS: LORazepam 2 MG TABLET PO PRN (13:02)
[2016-12-11 16:27] VITALS: BP 120/77
[2016-12-11] MEDS: ZOLPIDEM TARTRATE 10 MG TABLET PO PRN (21:00)
[2016-12-12] MEDS: LORazepam 2 MG TABLET PO PRN ×3 (01:59→14:09)
[2016-12-12 02:00] VITALS: BP 110/73
[2016-12-12] MEDS: LEVOTHYROXINE SODIUM 75 MCG TABLET PO SCH (06:32)
[2016-12-12 08:05] VITALS: BP 122/89
[2016-12-12] MEDS: DIVALPROEX SODIUM 500 MG ER TABLET PO SCH ×2 (09:32→16:02)
[2016-12-12] MEDS: QUEtiapine FUMARATE 200 MG TABLET PO SCH ×2 (09:32→16:02)
[2016-12-12] MEDS: NICOTINE 21 MG/24 HOUR PATCH TD SCH (09:35)
[2016-12-12] MEDS: HALOPERIDOL 5 MG TABLET PO PRN ×2 (14:09→21:25)
[2016-12-12 16:50] VITALS: BP 114/71
[2016-12-12] MEDS: ZOLPIDEM TARTRATE 10 MG TABLET PO PRN (21:25)
[2016-12-13] MEDS: LEVOTHYROXINE SODIUM 75 MCG TABLET PO SCH (06:38)
[2016-12-13] MEDS: QUEtiapine FUMARATE 200 MG TABLET PO SCH (09:06)
[2016-12-13 09:10] VITALS: BP 104/54
[2016-12-13] MEDS: DIVALPROEX SODIUM 500 MG ER TABLET PO SCH (09:12)
[2016-12-13] MEDS: NICOTINE 21 MG/24 HOUR PATCH TD SCH (09:14)
[2017-01-07] MEDS ORDERED: DiphenhydrAMINE HCL 50 MG/ML VIAL IM ONE (08:45)
[2017-01-07] MEDS ORDERED: HALOPERIDOL LACTATE 5 MG/ML VIAL IM ONE (08:45)
[2017-01-07] MEDS ORDERED: LORazepam 2 MG/ML VIAL IM ONE (08:45)
[2017-01-07] MEDS ORDERED: QUEtiapine FUMARATE 200 MG TABLET PO SCH (09:00)
[2017-01-07] MEDS ORDERED: DIVALPROEX SODIUM 500 MG DR TABLET PO SCH (09:00)
== END 2016-12-13 16:00 | disposition home or self-care (01) | DRG 750 ==
LOC: EMS 19:46 → 3EC 12-05 16:21 → 3EI 12-09 18:45
PROVIDERS: ADMIT Psychiatry & Neurology Psychiatry; ATTEND Psychiatry & Neurology Psychiatry
DX: F25.0 Schizoaffective disorder, bipolar type (principal); R45.851 Suicidal ideations; E03.9 Hypothyroidism, unspecified; F12.90 Cannabis use, unspecified, uncomplicated; F17.200 Nicotine dependence, unspecified, uncomplicated; K59.00 Constipation, unspecified; K21.9 Gastro-esophageal reflux disease without esophagitis; J44.9 Chronic obstructive pulmonary disease, unspecified; F41.9 Anxiety disorder, unspecified; Z88.2 Allergy status to sulfonamides; Z88.6 Allergy status to analgesic agent; Z88.5 Allergy status to narcotic agent; Z91.013 Allergy to seafood; Z71.6 Tobacco abuse counseling; Z90.49 Acquired absence of other specified parts of digestive tract; Z82.49 Family history of ischemic heart disease and other diseases of the circulatory system; Z82.0 Family history of epilepsy and other diseases of the nervous system; Z81.8 Family history of other mental and behavioral disorders
CPT/HCPCS: 84443; 87081; 93005; 96372; 99285; G0480; G0481; J1200; J1630; J2060

== ENCOUNTER 2017-01-06 08:42 | Inpatient (IN) | payer MEDICAID, OTHER ==
[~2017-01-06] VITALS: Ht 167.6 cm; Wt 83.6 kg
[~2017-01-06 08:42] MED LIST changes: -PANT40TA25 PO
[2017-01-06] MEDS ORDERED: GABA-529 PO (08:57)
[2017-01-06] MEDS ORDERED: CHLO10 PO (08:57)
[2017-01-06] MEDS ORDERED: TRAZ-144 PO (08:57)
[2017-01-06 10:00] LABS: AMPHET/METH SCREEN,URINE NEGATIVE (NEGATIVE); BARBITURATE SCREEN, URINE NEGATIVE (NEGATIVE); BENZODIAZEPINES SCREEN,URINE NEGATIVE (NEGATIVE); CANNABINOID SCREEN,URINE NEGATIVE (NEGATIVE); COCAINE SCREEN,URINE NEGATIVE (NEGATIVE); METHADONE SCREEN, URINE NEGATIVE (NEGATIVE); OPIATE SCREEN,URINE NEGATIVE (NEGATIVE); PHENCYCLIDINE SCREEN,URINE NEGATIVE (NEGATIVE)
[2017-01-06 10:07] LABS: BASOPHILS % (AUTO) 0.8 % (0.0-2.0); EOSINOPHILS % (AUTO) 0 % (1.0-6.0); HEMATOCRIT 40.5 % (36-46); HEMOGLOBIN 13.8 g/dL (12.0-16.0); LYMPHOCYTES # (AUTO) 1.5 K/uL (1.0-4.8); LYMPHOCYTES % (AUTO) 15.6 % (22.0-44.0); MEAN CORPUSCULAR HEMOGLOBIN 31.6 pg (26.0-34.0); MEAN CORPUSCULAR HGB CONC 34.1 G/dL (31.0-37.0); MEAN CORPUSCULAR VOLUME 93 fL (80-100); MONOCYTES # (AUTO) 0.5 K/uL (0.1-1.0); MONOCYTES % (AUTO) 5.4 % (2.0-9.0); NEUTROPHILS # (AUTO) 7.5 K/uL (1.8-7.7); NEUTROPHILS % (AUTO) 78.2 % (40.0-70.0); PLATELET COUNT (AUTO) 361 K/uL (150-450); RED BLOOD CELL COUNT(AUTO) 4.38 MIL/uL (4.00-5.20); RED CELL DISTRIBUTION WIDTH 15.4 % (11.5-14.5)
[2017-01-06 10:12] LABS: ANION GAP 10 mmol/L (8-16); CALCIUM, TOTAL 9.6 mg/dL (8.8-10.5); CARBON DIOXIDE 23 mmol/L (22-29); CHLORIDE 104 mmol/L (98-107); GLOMERULAR FILTR. RATE CALC > 60 mL/min (>60); GLUCOSE,RANDOM 96 mg/dL (70-110); SODIUM SERUM 137 mmol/L (136-145); UREA NITROGEN, BLOOD 15 mg/dL (7-18)
[2017-01-06 10:14] LABS: ALANINE AMINOTRANSFERASE 19 U/L (12-78); ALBUMIN 3.7 g/dL (3.4-5.0); ALKALINE PHOSPHATASE 81 U/L (46-116); ASPARTATE AMINOTRANSFERASE 14 U/L (15-37); BILIRUBIN,TOTAL 0.4 mg/dL (0.1-1.0); TOTAL PROTEIN, SERUM 6.9 g/dL (6.4-8.2)
[2017-01-06] MEDS ORDERED: DiphenhydrAMINE HCL 50 MG/ML VIAL IM ONE (10:45)
[2017-01-06] MEDS ORDERED: LORazepam 2 MG/ML VIAL IM ONE (10:45)
[2017-01-06] MEDS ORDERED: HALOPERIDOL LACTATE 5 MG/ML VIAL IM ONE (10:45)
[2017-01-06] MEDS: HALOPERIDOL 5 MG TABLET PO PRN (16:00)
[2017-01-06] MEDS: LORazepam 2 MG TABLET PO PRN (16:00)
[2017-01-06 18:48] VITALS: BP 138/64
[2017-01-06] MEDS ORDERED: INFLUENZA VIRUS VACCINE QVS 2017-18 (3YR+)/PF 60 MCG/0.5 ML SYRINGE IM ONE (19:00)
[2017-01-07] MEDS: ZOLPIDEM TARTRATE 10 MG TABLET PO PRN (01:44)
[2017-01-07 01:45] VITALS: BP 119/75
[2017-01-07] MEDS: LORazepam 2 MG TABLET PO PRN (04:55)
[2017-01-07 06:57] LABS: BASOPHILS % (AUTO) 0.4 % (0.0-2.0); EOSINOPHILS % (AUTO) 0 % (1.0-6.0); HEMOGLOBIN 13.3 g/dL (12.0-16.0); LYMPHOCYTES # (AUTO) 1.6 K/uL (1.0-4.8); LYMPHOCYTES % (AUTO) 33.5 % (22.0-44.0); MEAN CORPUSCULAR HEMOGLOBIN 31.7 pg (26.0-34.0); MEAN CORPUSCULAR HGB CONC 34.1 G/dL (31.0-37.0); MEAN CORPUSCULAR VOLUME 93 fL (80-100); MONOCYTES # (AUTO) 0.4 K/uL (0.1-1.0); MONOCYTES % (AUTO) 7.6 % (2.0-9.0); NEUTROPHILS # (AUTO) 2.9 K/uL (1.8-7.7); NEUTROPHILS % (AUTO) 58.5 % (40.0-70.0); PLATELET COUNT (AUTO) 365 K/uL (150-450); RED BLOOD CELL COUNT(AUTO) 4.19 MIL/uL (4.00-5.20); RED CELL DISTRIBUTION WIDTH 14.9 % (11.5-14.5)
[2017-01-07] MEDS ORDERED: LEVOTHYROXINE SODIUM 75 MCG TABLET PO SCH (07:00)
[2017-01-07] MEDS: HALOPERIDOL 5 MG TABLET PO PRN (07:02)
[2017-01-07 07:07] LABS: ALANINE AMINOTRANSFERASE 22 U/L (12-78); ALBUMIN 3.1 g/dL (3.4-5.0); ALKALINE PHOSPHATASE 74 U/L (46-116); ANION GAP 10 mmol/L (8-16); ASPARTATE AMINOTRANSFERASE 19 U/L (15-37); BILIRUBIN,TOTAL 0.5 mg/dL (0.1-1.0); CALCIUM, TOTAL 8.5 mg/dL (8.8-10.5); CARBON DIOXIDE 22 mmol/L (22-29); CHLORIDE 106 mmol/L (98-107); CHOL/HDL RATIO 3.6 (3.9-5.7); CHOLESTEROL 178 mg/dL (131-200); CREATININE 0.79 mg/dL (0.60-1.30); GLOMERULAR FILTR. RATE CALC > 60 mL/min (>60); GLUCOSE,RANDOM 88 mg/dL (70-110); HDL CHOLESTEROL 50 mg/dL (40-60); LDL CHOL (CALC.) 92 mg/dL (0-130); SODIUM SERUM 138 mmol/L (136-145); TRIGLYCERIDES 180 mg/dL (15-150); UREA NITROGEN, BLOOD 7 mg/dL (7-18)
[2017-01-07] MEDS ORDERED: HALOPERIDOL LACTATE 5 MG/ML VIAL ONE (08:40)
[2017-01-07] MEDS ORDERED: LORazepam 2 MG/ML VIAL IM ONE (08:40)
[2017-01-07] MEDS ORDERED: DiphenhydrAMINE HCL 50 MG/ML VIAL IM ONE (08:40)
[2017-01-07] MEDS ORDERED: LORazepam 2 MG/ML VIAL ONE (08:40)
[2017-01-07] MEDS ORDERED: DiphenhydrAMINE HCL 50 MG/ML VIAL ONE (08:40)
[2017-01-07] MEDS ORDERED: HALOPERIDOL LACTATE 5 MG/ML VIAL IM ONE (08:40)
[2017-01-07 10:03] VITALS: BP 154/73
[2017-01-07] MEDS: DIVALPROEX SODIUM 500 MG DR TABLET PO SCH ×2 (11:24→17:01)
[2017-01-07] MEDS: QUEtiapine FUMARATE 200 MG TABLET PO SCH ×2 (11:24→17:01)
[2017-01-07] MEDS ORDERED: ACETAMINOPHEN 325 MG TABLET PO PRN (15:45)
[2017-01-07] MEDS ORDERED: ALBUTEROL SULFATE HFA 90 MCG/PUFF 8 GM INHALER IH PRN (15:45)
[2017-01-07 17:00] VITALS: BP 108/71
[2017-01-08] MEDS: HALOPERIDOL 5 MG TABLET PO PRN ×2 (03:34→12:47)
[2017-01-08] MEDS: LORazepam 2 MG TABLET PO PRN ×4 (03:34→20:32)
[2017-01-08 03:36] VITALS: BP 112/73
[2017-01-08] MEDS: LEVOTHYROXINE SODIUM 75 MCG TABLET PO SCH (07:07)
[2017-01-08 08:00] VITALS: BP 111/73
[2017-01-08] MEDS: QUEtiapine FUMARATE 200 MG TABLET PO SCH ×2 (08:11→16:06)
[2017-01-08] MEDS: DIVALPROEX SODIUM 500 MG DR TABLET PO SCH ×2 (08:12→16:06)
[2017-01-08 16:30] VITALS: BP 118/76
[2017-01-09] MEDS: HALOPERIDOL 5 MG TABLET PO PRN ×2 (03:19→13:24)
[2017-01-09 03:30] VITALS: BP 107/69
[2017-01-09] MEDS: LEVOTHYROXINE SODIUM 75 MCG TABLET PO SCH (07:07)
[2017-01-09 08:18] VITALS: BP 127/77
[2017-01-09] MEDS: DIVALPROEX SODIUM 500 MG DR TABLET PO SCH ×2 (08:20→16:35)
[2017-01-09] MEDS: QUEtiapine FUMARATE 200 MG TABLET PO SCH ×2 (08:20→16:36)
[2017-01-09] MEDS: LORazepam 2 MG TABLET PO PRN ×2 (08:20→13:24)
[2017-01-09 17:45] VITALS: BP 121/84
[2017-01-10] MEDS: LEVOTHYROXINE SODIUM 75 MCG TABLET PO SCH (06:56)
[2017-01-10] MEDS: DIVALPROEX SODIUM 500 MG DR TABLET PO SCH ×2 (09:42→16:55)
[2017-01-10] MEDS: QUEtiapine FUMARATE 200 MG TABLET PO SCH ×2 (09:44→16:55)
[2017-01-10 10:13] VITALS: BP 135/98
[2017-01-10] MEDS: HALOPERIDOL 5 MG TABLET PO PRN (14:25)
[2017-01-10] MEDS: LORazepam 2 MG TABLET PO PRN (14:25)
[2017-01-10 16:30] VITALS: BP 97/55
[2017-01-10] MEDS: ZOLPIDEM TARTRATE 10 MG TABLET PO PRN (21:21)
[2017-01-11 01:05] VITALS: BP 95/65
[2017-01-11] MEDS: LEVOTHYROXINE SODIUM 75 MCG TABLET PO SCH (07:02)
[2017-01-11 08:00] VITALS: BP 116/90
[2017-01-11] MEDS: DIVALPROEX SODIUM 500 MG DR TABLET PO SCH ×2 (09:17→15:57)
[2017-01-11] MEDS: QUEtiapine FUMARATE 200 MG TABLET PO SCH ×2 (09:18→15:58)
[2017-01-11] MEDS: HALOPERIDOL 5 MG TABLET PO PRN (13:08)
[2017-01-11] MEDS: LORazepam 2 MG TABLET PO PRN (13:08)
[2017-01-11 17:01] VITALS: BP 123/70
[2017-01-11] MEDS: ZOLPIDEM TARTRATE 10 MG TABLET PO PRN (22:42)
[2017-01-12 02:49] VITALS: BP 95/75
[2017-01-12] MEDS: LEVOTHYROXINE SODIUM 75 MCG TABLET PO SCH (06:16)
[2017-01-12 08:00] VITALS: BP 123/59
[2017-01-12] MEDS: QUEtiapine FUMARATE 200 MG TABLET PO SCH ×2 (08:56→16:23)
[2017-01-12] MEDS: DIVALPROEX SODIUM 500 MG DR TABLET PO SCH ×2 (08:56→16:22)
[2017-01-12] MEDS: HALOPERIDOL 5 MG TABLET PO PRN (12:24)
[2017-01-12] MEDS ORDERED: LORazepam 2 MG/ML VIAL IM ONE (14:30)
[2017-01-12] MEDS ORDERED: HALOPERIDOL LACTATE 5 MG/ML VIAL IM ONE (14:30)
[2017-01-12] MEDS ORDERED: DiphenhydrAMINE HCL 50 MG/ML VIAL IM ONE (14:30)
[2017-01-12 16:40] VITALS: BP 109/71
[2017-01-13] MEDS: ZOLPIDEM TARTRATE 10 MG TABLET PO PRN ×2 (00:05→23:01)
[2017-01-13 00:06] VITALS: BP 127/98
[2017-01-13] MEDS: LEVOTHYROXINE SODIUM 75 MCG TABLET PO SCH (06:48)
[2017-01-13] MEDS: LORazepam 2 MG TABLET PO PRN ×2 (06:48→16:24)
[2017-01-13 06:52] VITALS: BP 103/88
[2017-01-13 08:36] VITALS: BP 128/95
[2017-01-13] MEDS: DIVALPROEX SODIUM 500 MG DR TABLET PO SCH ×2 (09:01→16:24)
[2017-01-13] MEDS: QUEtiapine FUMARATE 200 MG TABLET PO SCH ×2 (09:01→16:24)
[2017-01-13] MEDS: HALOPERIDOL 5 MG TABLET PO PRN (14:41)
[2017-01-13 18:36] VITALS: BP 129/80
[2017-01-14 06:33] VITALS: BP 106/70
[2017-01-14] MEDS: LEVOTHYROXINE SODIUM 75 MCG TABLET PO SCH (06:41)
[2017-01-14 09:16] VITALS: BP 101/61
[2017-01-14] MEDS: QUEtiapine FUMARATE 200 MG TABLET PO SCH ×2 (09:27→16:46)
[2017-01-14] MEDS: DIVALPROEX SODIUM 500 MG DR TABLET PO SCH ×2 (09:27→16:45)
[2017-01-14] MEDS: HALOPERIDOL 5 MG TABLET PO PRN (15:50)
[2017-01-14] MEDS: LORazepam 2 MG TABLET PO PRN (15:50)
== END 2017-01-14 18:00 | disposition home or self-care (01) | DRG 750 ==
LOC: EMS 08:44 → EEVIPCON 08:44 → 3EC 17:21 → 3EI 01-09 18:41
PROVIDERS: ADMIT Psychiatry & Neurology Psychiatry; ATTEND Psychiatry & Neurology Psychiatry
DX: F25.0 Schizoaffective disorder, bipolar type (principal); R45.851 Suicidal ideations; Z78.1 Physical restraint status; F22 Delusional disorders; J44.9 Chronic obstructive pulmonary disease, unspecified; E03.9 Hypothyroidism, unspecified; D64.9 Anemia, unspecified; E78.5 Hyperlipidemia, unspecified; F17.210 Nicotine dependence, cigarettes, uncomplicated; F41.9 Anxiety disorder, unspecified; K21.9 Gastro-esophageal reflux disease without esophagitis; F32.9 Major depressive disorder, single episode, unspecified; Z81.8 Family history of other mental and behavioral disorders; Z88.2 Allergy status to sulfonamides; Z88.6 Allergy status to analgesic agent; Z88.5 Allergy status to narcotic agent; Z91.013 Allergy to seafood; Z79.899 Other long term (current) drug therapy; Z90.49 Acquired absence of other specified parts of digestive tract; Z28.21 Immunization not carried out because of patient refusal
CPT/HCPCS: 84443; 87081; 96372; 99285; G0480; J1200; J1630; J2060

== ENCOUNTER 2017-01-17 15:29 | Inpatient (IN) | payer MEDICAID, OTHER ==
[~2017-01-17] VITALS: Ht 167.6 cm; Wt 82.8 kg
[2017-01-17 16:28] LABS: BASOPHILS % (AUTO) 0.3 % (0.0-2.0); EOSINOPHILS % (AUTO) 0.1 % (1.0-6.0); HEMATOCRIT 39.7 % (36-46); HEMOGLOBIN 14.2 g/dL (12.0-16.0); LYMPHOCYTES # (AUTO) 2.8 K/uL (1.0-4.8); LYMPHOCYTES % (AUTO) 36.1 % (22.0-44.0); MEAN CORPUSCULAR HEMOGLOBIN 32.5 pg (26.0-34.0); MEAN CORPUSCULAR HGB CONC 35.7 G/dL (31.0-37.0); MEAN CORPUSCULAR VOLUME 91 fL (80-100); MONOCYTES # (AUTO) 0.6 K/uL (0.1-1.0); MONOCYTES % (AUTO) 8.2 % (2.0-9.0); NEUTROPHILS # (AUTO) 4.2 K/uL (1.8-7.7); NEUTROPHILS % (AUTO) 55.3 % (40.0-70.0); PLATELET COUNT (AUTO) 190 K/uL (150-450); RED BLOOD CELL COUNT(AUTO) 4.37 MIL/uL (4.00-5.20); WHITE BLOOD COUNT (AUTO) 7.6 K/uL (4.5-11.0)
[2017-01-17 16:40] LABS: ANION GAP 11 mmol/L (8-16); CALCIUM, TOTAL 8.5 mg/dL (8.8-10.5); CARBON DIOXIDE 21 mmol/L (22-29); CHLORIDE 105 mmol/L (98-107); CREATININE 0.75 mg/dL (0.60-1.30); GLOMERULAR FILTR. RATE CALC > 60 mL/min (>60); POTASSIUM 3.6 mmol/L (3.5-5.1); SODIUM SERUM 137 mmol/L (136-145); UREA NITROGEN, BLOOD 10 mg/dL (7-18)
[2017-01-17 16:45] LABS: ALANINE AMINOTRANSFERASE 14 U/L (12-78); ALBUMIN 3.3 g/dL (3.4-5.0); ASPARTATE AMINOTRANSFERASE 14 U/L (15-37); BILIRUBIN,TOTAL 0.3 mg/dL (0.1-1.0); TOTAL PROTEIN, SERUM 6.3 g/dL (6.4-8.2)
[2017-01-17] MEDS ORDERED: QUEtiapine FUMARATE 100 MG TABLET PO ONE (17:30)
[2017-01-17] MEDS ORDERED: LORazepam 2 MG TABLET PO ONE (17:30)
[2017-01-17 19:41] VITALS: BP 126/76
[2017-01-17] MEDS: QUEtiapine FUMARATE 200 MG TABLET PO SCH (20:28)
[2017-01-17] MEDS: DIVALPROEX SODIUM 500 MG DR TABLET PO SCH (20:28)
[2017-01-18] MEDS: LEVOTHYROXINE SODIUM 75 MCG TABLET PO SCH (06:49)
[2017-01-18] MEDS: DIVALPROEX SODIUM 500 MG DR TABLET PO SCH ×2 (08:23→16:42)
[2017-01-18] MEDS: QUEtiapine FUMARATE 200 MG TABLET PO SCH ×2 (08:23→16:42)
[2017-01-18] MEDS: NICOTINE 14 MG/24 HOUR PATCH TD SCH (08:24)
[2017-01-18 08:30] VITALS: BP 139/83
[2017-01-18 10:44] VITALS: BP 141/81
[2017-01-18] MEDS: LORazepam 2 MG TABLET PO PRN ×2 (10:48→16:42)
[2017-01-18] MEDS: HALOPERIDOL 5 MG TABLET PO PRN ×2 (10:49→16:42)
[2017-01-18] MEDS ORDERED: ALBUTEROL SULFATE HFA 90 MCG/PUFF 8 GM INHALER IH PRN (14:15)
[2017-01-18] MEDS ORDERED: ACETAMINOPHEN 325 MG TABLET PO PRN (14:15)
[2017-01-18 17:56] VITALS: BP 110/59
[2017-01-19] MEDS: ZOLPIDEM TARTRATE 10 MG TABLET PO PRN ×2 (00:38→21:58)
[2017-01-19 00:43] VITALS: BP 116/75
[2017-01-19] MEDS: LEVOTHYROXINE SODIUM 75 MCG TABLET PO SCH (06:38)
[2017-01-19] MEDS ORDERED: LEVOTHYROXINE SODIUM 75 MCG TABLET PO SCH (07:00)
[2017-01-19] MEDS: DIVALPROEX SODIUM 500 MG DR TABLET PO SCH ×2 (08:19→17:19)
[2017-01-19] MEDS: HALOPERIDOL 5 MG TABLET PO PRN (08:20)
[2017-01-19] MEDS: LORazepam 2 MG TABLET PO PRN (08:20)
[2017-01-19] MEDS: OMEPRAZOLE 20 MG CAPSULE PO SCH (08:20)
[2017-01-19] MEDS: QUEtiapine FUMARATE 200 MG TABLET PO SCH ×2 (08:20→17:19)
[2017-01-19] MEDS: NICOTINE 14 MG/24 HOUR PATCH TD SCH (08:26)
[2017-01-19 09:53] VITALS: BP 132/66
[2017-01-19 18:11] VITALS: BP 108/69
[2017-01-20] MEDS: LEVOTHYROXINE SODIUM 75 MCG TABLET PO SCH (06:17)
[2017-01-20] MEDS: DIVALPROEX SODIUM 500 MG DR TABLET PO SCH ×2 (08:58→17:46)
[2017-01-20] MEDS: OMEPRAZOLE 20 MG CAPSULE PO SCH (08:58)
[2017-01-20] MEDS: QUEtiapine FUMARATE 200 MG TABLET PO SCH ×2 (08:58→17:46)
[2017-01-20] MEDS: NICOTINE 14 MG/24 HOUR PATCH TD SCH (08:59)
[2017-01-20 10:48] VITALS: BP 103/75
[2017-01-20] MEDS: HALOPERIDOL 5 MG TABLET PO PRN (14:09)
[2017-01-20] MEDS: LORazepam 2 MG TABLET PO PRN (14:09)
[2017-01-21] MEDS: LEVOTHYROXINE SODIUM 75 MCG TABLET PO SCH (06:42)
[2017-01-21 08:30] VITALS: BP 105/76
[2017-01-21] MEDS: HALOPERIDOL 5 MG TABLET PO PRN ×3 (08:41→18:38)
[2017-01-21] MEDS: DIVALPROEX SODIUM 500 MG DR TABLET PO SCH ×2 (08:41→16:14)
[2017-01-21] MEDS: QUEtiapine FUMARATE 200 MG TABLET PO SCH ×2 (08:41→16:14)
[2017-01-21] MEDS: LORazepam 2 MG TABLET PO PRN ×3 (08:41→18:38)
[2017-01-21] MEDS: OMEPRAZOLE 20 MG CAPSULE PO SCH (08:41)
[2017-01-21] MEDS: NICOTINE 14 MG/24 HOUR PATCH TD SCH (08:46)
[2017-01-21 16:25] VITALS: BP 116/80
[2017-01-21] MEDS: ZOLPIDEM TARTRATE 10 MG TABLET PO PRN (23:40)
[2017-01-22 00:01] VITALS: BP 104/57
[2017-01-22] MEDS: LEVOTHYROXINE SODIUM 75 MCG TABLET PO SCH (06:36)
[2017-01-22] MEDS: DIVALPROEX SODIUM 500 MG DR TABLET PO SCH ×2 (08:09→16:26)
[2017-01-22] MEDS: QUEtiapine FUMARATE 200 MG TABLET PO SCH ×2 (08:09→16:25)
[2017-01-22] MEDS: OMEPRAZOLE 20 MG CAPSULE PO SCH (08:09)
[2017-01-22] MEDS: NICOTINE 14 MG/24 HOUR PATCH TD SCH (08:10)
[2017-01-22 09:52] VITALS: BP 136/80
[2017-01-22] MEDS: LORazepam 2 MG TABLET PO PRN ×2 (13:06→21:11)
[2017-01-22] MEDS: HALOPERIDOL 5 MG TABLET PO PRN ×2 (13:06→21:11)
[2017-01-22 20:32] VITALS: BP 112/76
[2017-01-22] MEDS: ZOLPIDEM TARTRATE 10 MG TABLET PO PRN (22:07)
[2017-01-23] MEDS: LEVOTHYROXINE SODIUM 75 MCG TABLET PO SCH (06:34)
[2017-01-23] MEDS: OMEPRAZOLE 20 MG CAPSULE PO SCH (08:07)
[2017-01-23] MEDS: NICOTINE 14 MG/24 HOUR PATCH TD SCH (08:07)
[2017-01-23] MEDS: DIVALPROEX SODIUM 500 MG DR TABLET PO SCH ×2 (08:07→16:04)
[2017-01-23] MEDS: QUEtiapine FUMARATE 200 MG TABLET PO SCH ×2 (08:07→16:04)
[2017-01-23 09:30] VITALS: BP 118/75
[2017-01-23] MEDS: LORazepam 2 MG TABLET PO PRN ×2 (11:59→16:05)
[2017-01-23] MEDS: HALOPERIDOL 5 MG TABLET PO PRN (11:59)
[2017-01-23 16:04] VITALS: BP 110/72
[2017-01-24] MEDS: LEVOTHYROXINE SODIUM 75 MCG TABLET PO SCH (06:52)
[2017-01-24] MEDS: DIVALPROEX SODIUM 500 MG DR TABLET PO SCH ×2 (08:15→16:22)
[2017-01-24] MEDS: NICOTINE 14 MG/24 HOUR PATCH TD SCH (08:15)
[2017-01-24] MEDS: QUEtiapine FUMARATE 200 MG TABLET PO SCH ×2 (08:15→16:22)
[2017-01-24] MEDS: OMEPRAZOLE 20 MG CAPSULE PO SCH (08:15)
[2017-01-24] MEDS: HALOPERIDOL 5 MG TABLET PO PRN (08:17)
[2017-01-24] MEDS: LORazepam 2 MG TABLET PO PRN (08:17)
[2017-01-24] MEDS: BENZOCAINE/MENTHOL LOZENGE [8 LOZENGES/PACKET] PO PRN ×2 (08:18→16:22)
[2017-01-24 09:09] VITALS: BP 104/63
[2017-01-24] MEDS: GuaiFENesin/D-METHORPHAN/PHENYLEPH 5 ML LIQUID ORAL.SYG PO PRN (11:14)
[2017-01-24 16:51] VITALS: BP 111/69
[2017-01-25] MEDS: LEVOTHYROXINE SODIUM 75 MCG TABLET PO SCH (06:29)
[2017-01-25 09:20] VITALS: BP 127/98
[2017-01-25] MEDS: OMEPRAZOLE 20 MG CAPSULE PO SCH (09:22)
[2017-01-25] MEDS: DIVALPROEX SODIUM 500 MG DR TABLET PO SCH ×2 (09:23→16:33)
[2017-01-25] MEDS: QUEtiapine FUMARATE 200 MG TABLET PO SCH ×2 (09:23→16:33)
[2017-01-25] MEDS: NICOTINE 14 MG/24 HOUR PATCH TD SCH (09:24)
[2017-01-25] MEDS: BENZOCAINE/MENTHOL LOZENGE [8 LOZENGES/PACKET] PO PRN (09:33)
[2017-01-25] MEDS: LORazepam 2 MG TABLET PO PRN (11:56)
[2017-01-25] MEDS: HALOPERIDOL 5 MG TABLET PO PRN ×2 (11:56→21:23)
[2017-01-25] MEDS: GuaiFENesin/D-METHORPHAN/PHENYLEPH 5 ML LIQUID ORAL.SYG PO PRN (16:35)
[2017-01-25] MEDS: ZOLPIDEM TARTRATE 10 MG TABLET PO PRN (21:23)
[2017-01-25 22:01] VITALS: BP 105/78
[2017-01-26 03:16] VITALS: BP 130/89
[2017-01-26] MEDS: LORazepam 2 MG TABLET PO PRN ×3 (03:18→20:19)
[2017-01-26] MEDS: HALOPERIDOL 5 MG TABLET PO PRN ×3 (03:19→20:19)
[2017-01-26] MEDS: LEVOTHYROXINE SODIUM 75 MCG TABLET PO SCH (06:47)
[2017-01-26] MEDS: GuaiFENesin/D-METHORPHAN/PHENYLEPH 5 ML LIQUID ORAL.SYG PO PRN ×2 (06:47→15:56)
[2017-01-26 08:11] VITALS: BP 119/88
[2017-01-26] MEDS: OMEPRAZOLE 20 MG CAPSULE PO SCH (09:40)
[2017-01-26] MEDS: DIVALPROEX SODIUM 500 MG DR TABLET PO SCH ×2 (09:40→15:55)
[2017-01-26] MEDS: QUEtiapine FUMARATE 200 MG TABLET PO SCH ×2 (09:41→15:55)
[2017-01-26] MEDS: BENZOCAINE/MENTHOL LOZENGE [8 LOZENGES/PACKET] PO PRN (09:43)
[2017-01-26] MEDS: NICOTINE 14 MG/24 HOUR PATCH TD SCH (09:45)
[2017-01-26 18:41] VITALS: BP 113/76
[2017-01-27 02:08] VITALS: BP 103/69
[2017-01-27] MEDS: LORazepam 2 MG TABLET PO PRN ×3 (03:15→20:28)
[2017-01-27] MEDS: HALOPERIDOL 5 MG TABLET PO PRN ×3 (03:15→20:28)
[2017-01-27] MEDS: LEVOTHYROXINE SODIUM 75 MCG TABLET PO SCH (06:44)
[2017-01-27 09:01] VITALS: BP 115/79
[2017-01-27] MEDS: DIVALPROEX SODIUM 500 MG DR TABLET PO SCH ×2 (09:36→17:04)
[2017-01-27] MEDS: OMEPRAZOLE 20 MG CAPSULE PO SCH (09:37)
[2017-01-27] MEDS: QUEtiapine FUMARATE 200 MG TABLET PO SCH ×2 (09:40→17:04)
[2017-01-27] MEDS: NICOTINE 14 MG/24 HOUR PATCH TD SCH (09:41)
[2017-01-27 16:53] VITALS: BP 123/77
[2017-01-27] MEDS: ZOLPIDEM TARTRATE 10 MG TABLET PO PRN (21:30)
[2017-01-28] MEDS: LORazepam 2 MG TABLET PO PRN (03:05)
[2017-01-28 03:09] VITALS: BP 106/66
[2017-01-28] MEDS: LEVOTHYROXINE SODIUM 75 MCG TABLET PO SCH (06:50)
[2017-01-28] MEDS: QUEtiapine FUMARATE 200 MG TABLET PO SCH (08:15)
[2017-01-28] MEDS: OMEPRAZOLE 20 MG CAPSULE PO SCH (08:15)
[2017-01-28] MEDS: DIVALPROEX SODIUM 500 MG DR TABLET PO SCH (08:15)
[2017-01-28] MEDS: NICOTINE 14 MG/24 HOUR PATCH TD SCH (08:15)
[2017-01-28 08:46] VITALS: BP 120/74
[2017-01-28] MEDS ORDERED: OMEP20 PO (09:43)
== END 2017-01-28 14:15 | disposition home or self-care (01) | DRG 750 ==
LOC: EMS 15:30 → EEVIPCON 15:30 → 3EI 18:52
PROVIDERS: ADMIT Psychiatry & Neurology Psychiatry; ATTEND Psychiatry & Neurology Psychiatry
DX: F25.0 Schizoaffective disorder, bipolar type (principal); R45.851 Suicidal ideations; Z91.14 Patient's other noncompliance with medication regimen; E03.9 Hypothyroidism, unspecified; E55.9 Vitamin D deficiency, unspecified; F17.200 Nicotine dependence, unspecified, uncomplicated; J44.9 Chronic obstructive pulmonary disease, unspecified; K21.9 Gastro-esophageal reflux disease without esophagitis; Z71.6 Tobacco abuse counseling; Z88.5 Allergy status to narcotic agent; Z88.6 Allergy status to analgesic agent; Z88.2 Allergy status to sulfonamides; Z90.49 Acquired absence of other specified parts of digestive tract; Z81.8 Family history of other mental and behavioral disorders
CPT/HCPCS: 84443; 87081; 99285; 99406; G0480

== ENCOUNTER 2017-02-07 15:21 | Emergency (ER) | payer MEDICAID, OTHER ==
[~2017-02-07] VITALS: Ht 167.6 cm; Wt 81.8 kg
[~2017-02-07 15:21] MED LIST changes: +OMEP20 PO
[2017-02-07 16:11] LABS: BASOPHILS % (AUTO) 0.2 % (0.0-2.0); EOSINOPHILS % (AUTO) 0 % (1.0-6.0); HEMATOCRIT 39.6 % (36-46); HEMOGLOBIN 13.5 g/dL (12.0-16.0); LYMPHOCYTES # (AUTO) 2.3 K/uL (1.0-4.8); MEAN CORPUSCULAR HEMOGLOBIN 31.5 pg (26.0-34.0); MEAN CORPUSCULAR HGB CONC 34.2 G/dL (31.0-37.0); MEAN CORPUSCULAR VOLUME 92 fL (80-100); MONOCYTES # (AUTO) 0.6 K/uL (0.1-1.0); MONOCYTES % (AUTO) 10.3 % (2.0-9.0); NEUTROPHILS # (AUTO) 3.4 K/uL (1.8-7.7); NEUTROPHILS % (AUTO) 53.5 % (40.0-70.0); PLATELET COUNT (AUTO) 232 K/uL (150-450); RED CELL DISTRIBUTION WIDTH 14.9 % (11.5-14.5); WHITE BLOOD COUNT (AUTO) 6.3 K/uL (4.5-11.0)
[2017-02-07 16:37] LABS: ANION GAP 9 mmol/L (8-16); CALCIUM, TOTAL 8.6 mg/dL (8.8-10.5); CARBON DIOXIDE 27 mmol/L (22-29); CHLORIDE 105 mmol/L (98-107); CREATININE 0.87 mg/dL (0.60-1.30); GLOMERULAR FILTR. RATE CALC > 60 mL/min (>60); POTASSIUM 4.2 mmol/L (3.5-5.1); SODIUM SERUM 141 mmol/L (136-145); UREA NITROGEN, BLOOD 7 mg/dL (7-18)
[2017-02-07 16:46] LABS: ALANINE AMINOTRANSFERASE 11 U/L (12-78); ALBUMIN 3.1 g/dL (3.4-5.0); ASPARTATE AMINOTRANSFERASE 8 U/L (15-37); BILIRUBIN,TOTAL 0.2 mg/dL (0.1-1.0); VALPROIC ACID 81 mcg/mL (50-100)
[2017-02-07] MEDS ORDERED: HALOPERIDOL LACTATE 5 MG/ML VIAL IM ONE (17:00)
[2017-02-07] MEDS ORDERED: LORazepam 2 MG/ML VIAL IM ONE (17:00)
[2017-02-07 19:24] VITALS: BP 110/70
== END 2017-02-07 19:35 | disposition home or self-care (01) ==
LOC: EMS 15:26
DX: F25.9 Schizoaffective disorder, unspecified (principal); F31.9 Bipolar disorder, unspecified; J44.9 Chronic obstructive pulmonary disease, unspecified; J45.909 Unspecified asthma, uncomplicated; K21.9 Gastro-esophageal reflux disease without esophagitis; F17.210 Nicotine dependence, cigarettes, uncomplicated; Z88.2 Allergy status to sulfonamides; Z88.5 Allergy status to narcotic agent; Z88.6 Allergy status to analgesic agent; Z91.013 Allergy to seafood
CPT/HCPCS: 36415; 80053; 80164; 80307; 85025; 96372; 99284; G0480; J1630; J2060

== ENCOUNTER 2017-02-09 15:33 | Inpatient (IN) | payer MEDICAID ==
[~2017-02-09] VITALS: Ht 167.6 cm; Wt 86.2 kg
[2017-02-09 15:54] VITALS: BP 126/81
[2017-02-09] MEDS ORDERED: MAGNESIUM HYDROXIDE SUSPENSION 30 ML UDCUP PO PRN (17:15)
[2017-02-09] MEDS ORDERED: LOPERAMIDE HCL 2 MG CAPSULE PO PRN (17:15)
[2017-02-09] MEDS ORDERED: MAG HYDROX/AL HYDROX/SIMETH ES 30 ML SUSPENSION UDCUP PO PRN (17:15)
[2017-02-09] MEDS ORDERED: ACETAMINOPHEN 325 MG TABLET PO PRN (17:15)
[2017-02-09] MEDS ORDERED: INFLUENZA VIRUS VACCINE QVS 2017-18 (3YR+)/PF 60 MCG/0.5 ML SYRINGE IM ONE (17:30)
[2017-02-09] MEDS ORDERED: PNEUMOCOCCAL VACCINE POLYVALENT 0.5 ML VIAL [PPSV23] IM ONE (17:30)
[2017-02-09] MEDS: LORazepam 2 MG TABLET PO PRN (18:06)
[2017-02-09 18:15] VITALS: BP 122/78
[2017-02-09] MEDS: ZOLPIDEM TARTRATE 10 MG TABLET PO PRN (22:57)
[2017-02-10 04:54] VITALS: BP 113/75
[2017-02-10] MEDS ORDERED: LEVOTHYROXINE SODIUM 75 MCG TABLET PO SCH (06:30)
[2017-02-10 08:10] LABS: BASOPHILS % (AUTO) 0.4 % (0.0-2.0); EOSINOPHILS % (AUTO) 0.1 % (1.0-6.0); HEMATOCRIT 43.4 % (36-46); MEAN CORPUSCULAR HEMOGLOBIN 31.9 pg (26.0-34.0); MEAN CORPUSCULAR HGB CONC 34.5 G/dL (31.0-37.0); MEAN CORPUSCULAR VOLUME 92 fL (80-100); MONOCYTES # (AUTO) 0.6 K/uL (0.1-1.0); MONOCYTES % (AUTO) 12.3 % (2.0-9.0); NEUTROPHILS # (AUTO) 2.4 K/uL (1.8-7.7); NEUTROPHILS % (AUTO) 47.2 % (40.0-70.0); PLATELET COUNT (AUTO) 250 K/uL (150-450); RED CELL DISTRIBUTION WIDTH 14.9 % (11.5-14.5); WHITE BLOOD COUNT (AUTO) 5.1 K/uL (4.5-11.0)
[2017-02-10 08:34] VITALS: BP 103/67
[2017-02-10] MEDS: NICOTINE 21 MG/24 HOUR PATCH TD SCH (08:54)
[2017-02-10] MEDS: QUEtiapine FUMARATE 200 MG TABLET PO SCH ×2 (08:54→16:18)
[2017-02-10] MEDS ORDERED: OMEPRAZOLE 20 MG CAPSULE PO SCH (09:00)
[2017-02-10] MEDS ORDERED: DIVALPROEX SODIUM 500 MG DR TABLET PO SCH (09:00)
[2017-02-10 09:03] LABS: ALANINE AMINOTRANSFERASE 13 U/L (12-78); ALBUMIN 3.3 g/dL (3.4-5.0); ANION GAP 6 mmol/L (8-16); ASPARTATE AMINOTRANSFERASE 7 U/L (15-37); BILIRUBIN,TOTAL 0.3 mg/dL (0.1-1.0); CALCIUM, TOTAL 8.7 mg/dL (8.8-10.5); CARBON DIOXIDE 28 mmol/L (22-29); CHLORIDE 104 mmol/L (98-107); CHOL/HDL RATIO 2.8 (3.9-5.7); CREATININE 0.95 mg/dL (0.60-1.30); GLOMERULAR FILTR. RATE CALC > 60 mL/min (>60); POTASSIUM 4.2 mmol/L (3.5-5.1); SODIUM SERUM 138 mmol/L (136-145); THYROID STIMULATING HORMONE 2.85 uIU/mL (0.36-3.74); TOTAL PROTEIN, SERUM 6.7 g/dL (6.4-8.2); UREA NITROGEN, BLOOD 10 mg/dL (7-18)
[2017-02-10] MEDS: LORazepam 2 MG TABLET PO PRN ×2 (10:23→17:18)
[2017-02-10] MEDS: HALOPERIDOL 5 MG TABLET PO PRN ×2 (10:23→17:18)
[2017-02-10] MEDS ORDERED: ACETAMINOPHEN 325 MG TABLET PO PRN (14:30)
[2017-02-10] MEDS: DIVALPROEX SODIUM 500 MG DR TABLET PO SCH (16:18)
[2017-02-10 16:45] VITALS: BP 127/72
[2017-02-10] MEDS: ZOLPIDEM TARTRATE 10 MG TABLET PO PRN (23:02)
[2017-02-11 02:38] VITALS: BP 127/63
[2017-02-11] MEDS: LORazepam 2 MG TABLET PO PRN ×4 (02:38→17:42)
[2017-02-11] MEDS: HALOPERIDOL 5 MG TABLET PO PRN ×4 (02:38→17:42)
[2017-02-11] MEDS: LEVOTHYROXINE SODIUM 75 MCG TABLET PO SCH (06:17)
[2017-02-11] MEDS: DIVALPROEX SODIUM 500 MG DR TABLET PO SCH ×2 (08:46→17:20)
[2017-02-11] MEDS: OMEPRAZOLE 20 MG CAPSULE PO SCH (08:46)
[2017-02-11] MEDS: QUEtiapine FUMARATE 200 MG TABLET PO SCH ×2 (08:46→17:21)
[2017-02-11 08:47] VITALS: BP 101/60
[2017-02-11] MEDS: NICOTINE 21 MG/24 HOUR PATCH TD SCH (08:49)
[2017-02-11] MEDS ORDERED: LORazepam 2 MG/ML VIAL IM ONE (14:00)
[2017-02-11] MEDS ORDERED: HALOPERIDOL LACTATE 5 MG/ML VIAL IM ONE (14:00)
[2017-02-11] MEDS ORDERED: DiphenhydrAMINE HCL 50 MG/ML VIAL IM ONE (14:00)
[2017-02-11 16:32] VITALS: BP 115/80
[2017-02-11] MEDS: ZOLPIDEM TARTRATE 10 MG TABLET PO PRN (20:39)
[2017-02-12] MEDS: LEVOTHYROXINE SODIUM 75 MCG TABLET PO SCH (06:41)
[2017-02-12] MEDS: DIVALPROEX SODIUM 500 MG DR TABLET PO SCH ×2 (08:12→16:08)
[2017-02-12] MEDS: OMEPRAZOLE 20 MG CAPSULE PO SCH (08:12)
[2017-02-12] MEDS: NICOTINE 21 MG/24 HOUR PATCH TD SCH (08:13)
[2017-02-12] MEDS: QUEtiapine FUMARATE 200 MG TABLET PO SCH ×2 (08:17→16:08)
[2017-02-12] MEDS: LORazepam 2 MG TABLET PO PRN ×3 (08:34→20:16)
[2017-02-12] MEDS: HALOPERIDOL 5 MG TABLET PO PRN ×2 (08:35→14:24)
[2017-02-12 08:40] VITALS: BP 100/64
[2017-02-12] MEDS: ZOLPIDEM TARTRATE 10 MG TABLET PO PRN (20:16)
[2017-02-13 01:08] VITALS: BP 115/71
[2017-02-13] MEDS: HALOPERIDOL 5 MG TABLET PO PRN ×4 (01:16→19:03)
[2017-02-13] MEDS: LORazepam 2 MG TABLET PO PRN ×4 (04:32→19:03)
[2017-02-13] MEDS: LEVOTHYROXINE SODIUM 75 MCG TABLET PO SCH (06:39)
[2017-02-13 08:00] VITALS: BP 102/69
[2017-02-13] MEDS: OMEPRAZOLE 20 MG CAPSULE PO SCH (08:15)
[2017-02-13] MEDS: DIVALPROEX SODIUM 500 MG DR TABLET PO SCH ×2 (08:15→16:12)
[2017-02-13] MEDS: QUEtiapine FUMARATE 200 MG TABLET PO SCH ×2 (08:15→16:12)
[2017-02-13] MEDS: NICOTINE 21 MG/24 HOUR PATCH TD SCH (08:16)
[2017-02-14 01:52] VITALS: BP 105/78
[2017-02-14] MEDS: ZOLPIDEM TARTRATE 10 MG TABLET PO PRN ×2 (01:54→21:20)
[2017-02-14] MEDS: LEVOTHYROXINE SODIUM 75 MCG TABLET PO SCH (06:23)
[2017-02-14 08:54] VITALS: BP 95/59
[2017-02-14] MEDS: DIVALPROEX SODIUM 500 MG DR TABLET PO SCH ×2 (09:00→16:05)
[2017-02-14] MEDS: HALOPERIDOL 5 MG TABLET PO PRN ×3 (09:00→18:31)
[2017-02-14] MEDS: LORazepam 2 MG TABLET PO PRN ×3 (09:00→18:31)
[2017-02-14] MEDS: QUEtiapine FUMARATE 200 MG TABLET PO SCH ×2 (09:00→16:05)
[2017-02-14] MEDS: OMEPRAZOLE 20 MG CAPSULE PO SCH (09:00)
[2017-02-14] MEDS: NICOTINE 21 MG/24 HOUR PATCH TD SCH (09:01)
[2017-02-14 16:30] VITALS: BP 109/76
[2017-02-15] MEDS: LEVOTHYROXINE SODIUM 75 MCG TABLET PO SCH (06:40)
[2017-02-15] MEDS: DIVALPROEX SODIUM 500 MG DR TABLET PO SCH ×2 (08:43→16:22)
[2017-02-15] MEDS: OMEPRAZOLE 20 MG CAPSULE PO SCH (08:43)
[2017-02-15] MEDS: NICOTINE 21 MG/24 HOUR PATCH TD SCH (08:43)
[2017-02-15] MEDS: QUEtiapine FUMARATE 200 MG TABLET PO SCH ×2 (08:43→16:22)
[2017-02-15] MEDS: LORazepam 2 MG TABLET PO PRN ×3 (08:56→20:31)
[2017-02-15 09:01] VITALS: BP 129/86
[2017-02-15] MEDS: HALOPERIDOL 5 MG TABLET PO PRN ×2 (09:40→15:12)
[2017-02-15 16:11] VITALS: BP 120/74
[2017-02-15] MEDS: ZOLPIDEM TARTRATE 10 MG TABLET PO PRN (21:05)
[2017-02-16] MEDS: LEVOTHYROXINE SODIUM 75 MCG TABLET PO SCH (06:42)
[2017-02-16 08:32] VITALS: BP 137/79
[2017-02-16] MEDS: DIVALPROEX SODIUM 500 MG DR TABLET PO SCH ×2 (08:35→16:29)
[2017-02-16] MEDS: QUEtiapine FUMARATE 200 MG TABLET PO SCH ×2 (08:35→16:28)
[2017-02-16] MEDS: OMEPRAZOLE 20 MG CAPSULE PO SCH (08:35)
[2017-02-16] MEDS: NICOTINE 21 MG/24 HOUR PATCH TD SCH (08:36)
[2017-02-16] MEDS: LORazepam 2 MG TABLET PO PRN ×3 (09:02→17:47)
[2017-02-16] MEDS: HALOPERIDOL 5 MG TABLET PO PRN ×3 (09:02→17:47)
[2017-02-16 16:11] VITALS: BP 125/84
[2017-02-17 00:26] VITALS: BP 101/65
[2017-02-17] MEDS: ZOLPIDEM TARTRATE 10 MG TABLET PO PRN (00:30)
[2017-02-17] MEDS: LEVOTHYROXINE SODIUM 75 MCG TABLET PO SCH (06:26)
[2017-02-17 08:59] VITALS: BP 124/78
[2017-02-17] MEDS: QUEtiapine FUMARATE 200 MG TABLET PO SCH ×2 (09:14→16:41)
[2017-02-17] MEDS: DIVALPROEX SODIUM 500 MG DR TABLET PO SCH ×2 (09:14→16:41)
[2017-02-17] MEDS: OMEPRAZOLE 20 MG CAPSULE PO SCH (09:14)
[2017-02-17] MEDS: LORazepam 2 MG TABLET PO PRN ×4 (09:15→22:32)
[2017-02-17] MEDS: HALOPERIDOL 5 MG TABLET PO PRN ×4 (09:15→22:32)
[2017-02-17] MEDS: NICOTINE 21 MG/24 HOUR PATCH TD SCH (09:16)
[2017-02-17 16:34] VITALS: BP 133/73
[2017-02-18] MEDS: LEVOTHYROXINE SODIUM 75 MCG TABLET PO SCH (06:44)
[2017-02-18] MEDS: DIVALPROEX SODIUM 500 MG DR TABLET PO SCH ×2 (08:19→17:02)
[2017-02-18] MEDS: QUEtiapine FUMARATE 200 MG TABLET PO SCH ×2 (08:20→17:02)
[2017-02-18] MEDS: OMEPRAZOLE 20 MG CAPSULE PO SCH (08:20)
[2017-02-18] MEDS: NICOTINE 21 MG/24 HOUR PATCH TD SCH (08:20)
[2017-02-18 09:00] VITALS: BP 118/74
[2017-02-18] MEDS: LORazepam 2 MG TABLET PO PRN ×2 (09:20→17:02)
[2017-02-18] MEDS: HALOPERIDOL 5 MG TABLET PO PRN ×2 (09:20→17:02)
[2017-02-18 17:34] VITALS: BP 106/65
[2017-02-18] MEDS: ZOLPIDEM TARTRATE 10 MG TABLET PO PRN (22:41)
[2017-02-19] MEDS: LEVOTHYROXINE SODIUM 75 MCG TABLET PO SCH (06:26)
[2017-02-19 07:21] VITALS: BP 110/75
[2017-02-19 08:45] VITALS: BP 119/80
[2017-02-19] MEDS: DIVALPROEX SODIUM 500 MG DR TABLET PO SCH ×2 (08:54→16:53)
[2017-02-19] MEDS: OMEPRAZOLE 20 MG CAPSULE PO SCH (08:54)
[2017-02-19] MEDS: QUEtiapine FUMARATE 200 MG TABLET PO SCH ×2 (08:54→16:53)
[2017-02-19] MEDS: NICOTINE 21 MG/24 HOUR PATCH TD SCH (08:54)
[2017-02-19] MEDS: HALOPERIDOL 5 MG TABLET PO PRN ×3 (09:25→18:49)
[2017-02-19] MEDS: LORazepam 2 MG TABLET PO PRN ×3 (09:25→18:50)
[2017-02-19 16:00] VITALS: BP 115/76
[2017-02-19] MEDS: ZOLPIDEM TARTRATE 10 MG TABLET PO PRN (21:28)
[2017-02-20 00:16] VITALS: BP 106/67
[2017-02-20] MEDS: HALOPERIDOL 5 MG TABLET PO PRN ×4 (00:19→18:45)
[2017-02-20] MEDS: LORazepam 2 MG TABLET PO PRN ×4 (00:20→18:45)
[2017-02-20] MEDS: LEVOTHYROXINE SODIUM 75 MCG TABLET PO SCH (06:35)
[2017-02-20] MEDS: OMEPRAZOLE 20 MG CAPSULE PO SCH (08:01)
[2017-02-20] MEDS: NICOTINE 21 MG/24 HOUR PATCH TD SCH (08:01)
[2017-02-20] MEDS: QUEtiapine FUMARATE 200 MG TABLET PO SCH ×2 (08:01→16:07)
[2017-02-20] MEDS: DIVALPROEX SODIUM 500 MG DR TABLET PO SCH ×2 (08:01→16:07)
[2017-02-20 08:48] VITALS: BP 101/67
[2017-02-20 16:52] VITALS: BP 109/70
[2017-02-20] MEDS: ZOLPIDEM TARTRATE 10 MG TABLET PO PRN (20:31)
[2017-02-21 04:11] VITALS: BP 100/88
[2017-02-21] MEDS: LEVOTHYROXINE SODIUM 75 MCG TABLET PO SCH (06:13)
[2017-02-21] MEDS ORDERED: LEVO50TA11 PO (07:54)
[2017-02-21] MEDS: QUEtiapine FUMARATE 200 MG TABLET PO SCH ×2 (08:08→16:15)
[2017-02-21] MEDS: DIVALPROEX SODIUM 500 MG DR TABLET PO SCH ×2 (08:08→16:15)
[2017-02-21] MEDS: OMEPRAZOLE 20 MG CAPSULE PO SCH (08:09)
[2017-02-21] MEDS: NICOTINE 21 MG/24 HOUR PATCH TD SCH (08:10)
[2017-02-21] MEDS: LORazepam 2 MG TABLET PO PRN ×4 (08:10→22:10)
[2017-02-21 08:21] VITALS: BP 157/86
[2017-02-21] MEDS: HALOPERIDOL 5 MG TABLET PO PRN ×4 (08:35→22:09)
[2017-02-21 10:00] VITALS: BP 138/74
[2017-02-21 17:22] VITALS: BP 125/73
[2017-02-21] MEDS: ZOLPIDEM TARTRATE 10 MG TABLET PO PRN (20:20)
[2017-02-22 06:30] VITALS: BP 128/76
[2017-02-22] MEDS: LEVOTHYROXINE SODIUM 75 MCG TABLET PO SCH (06:48)
[2017-02-22 06:56] VITALS: BP 118/73
[2017-02-22 08:30] VITALS: BP 134/82
[2017-02-22] MEDS: NICOTINE 21 MG/24 HOUR PATCH TD SCH (08:33)
[2017-02-22] MEDS: OMEPRAZOLE 20 MG CAPSULE PO SCH (08:34)
[2017-02-22] MEDS: QUEtiapine FUMARATE 200 MG TABLET PO SCH ×2 (08:34→16:46)
[2017-02-22] MEDS: DIVALPROEX SODIUM 500 MG DR TABLET PO SCH ×2 (08:34→16:46)
[2017-02-22] MEDS: LORazepam 2 MG TABLET PO PRN ×3 (08:34→21:23)
[2017-02-22] MEDS: HALOPERIDOL 5 MG TABLET PO PRN ×2 (08:34→17:10)
[2017-02-22 17:43] VITALS: BP 123/73
[2017-02-22] MEDS: ZOLPIDEM TARTRATE 10 MG TABLET PO PRN (21:42)
[2017-02-23 05:12] VITALS: BP 106/73
[2017-02-23] MEDS: LEVOTHYROXINE SODIUM 75 MCG TABLET PO SCH (05:46)
[2017-02-23] MEDS: NICOTINE 21 MG/24 HOUR PATCH TD SCH (08:29)
[2017-02-23] MEDS: DIVALPROEX SODIUM 500 MG DR TABLET PO SCH ×2 (08:29→17:08)
[2017-02-23] MEDS: OMEPRAZOLE 20 MG CAPSULE PO SCH (08:29)
[2017-02-23] MEDS: HALOPERIDOL 5 MG TABLET PO PRN ×2 (08:29→13:20)
[2017-02-23] MEDS: LORazepam 2 MG TABLET PO PRN ×2 (08:30→13:20)
[2017-02-23] MEDS: QUEtiapine FUMARATE 200 MG TABLET PO SCH ×2 (08:30→17:08)
[2017-02-23 08:36] VITALS: BP 108/77
[2017-02-23 16:08] VITALS: BP 117/95
[2017-02-23] MEDS: ZOLPIDEM TARTRATE 10 MG TABLET PO PRN (20:09)
[2017-02-24 05:31] VITALS: BP 120/81
[2017-02-24] MEDS: LEVOTHYROXINE SODIUM 75 MCG TABLET PO SCH (06:32)
[2017-02-24 08:00] VITALS: BP 120/81
[2017-02-24] MEDS: DIVALPROEX SODIUM 500 MG DR TABLET PO SCH (08:33)
[2017-02-24] MEDS: LORazepam 2 MG TABLET PO PRN (08:34)
[2017-02-24] MEDS: OMEPRAZOLE 20 MG CAPSULE PO SCH (08:34)
[2017-02-24] MEDS: NICOTINE 21 MG/24 HOUR PATCH TD SCH (08:34)
[2017-02-24] MEDS: QUEtiapine FUMARATE 200 MG TABLET PO SCH (08:34)
[2017-02-24 09:00] VITALS: BP 120/80
[2017-02-24] MEDS: HALOPERIDOL 5 MG TABLET PO PRN (10:39)
== END 2017-02-24 13:35 | disposition home or self-care (01) | DRG 750 ==
LOC: B3A 17:20
PROVIDERS: ADMIT Psychiatry & Neurology Psychiatry; ATTEND Psychiatry & Neurology Psychiatry
PROC: 3E0234Z Introduction of Serum, Toxoid and Vaccine into Muscle, Percutaneous Approach (ICD-10-PCS; principal; 2017-02-10)
DX: F25.0 Schizoaffective disorder, bipolar type (principal); R45.851 Suicidal ideations; F29 Unspecified psychosis not due to a substance or known physiological condition; E55.9 Vitamin D deficiency, unspecified; E03.9 Hypothyroidism, unspecified; F17.200 Nicotine dependence, unspecified, uncomplicated; J44.9 Chronic obstructive pulmonary disease, unspecified; K21.9 Gastro-esophageal reflux disease without esophagitis; F41.9 Anxiety disorder, unspecified; F32.9 Major depressive disorder, single episode, unspecified; Z88.2 Allergy status to sulfonamides; Z81.8 Family history of other mental and behavioral disorders; Z88.1 Allergy status to other antibiotic agents; Z88.6 Allergy status to analgesic agent; Z88.5 Allergy status to narcotic agent; Z90.49 Acquired absence of other specified parts of digestive tract; Z23 Encounter for immunization
CPT/HCPCS: 84439; 84443; 87081; 90471; J1200; J1630; J2060

== ENCOUNTER 2017-02-27 17:09 | Inpatient (IN) | payer MEDICAID, OTHER ==
[~2017-02-27] VITALS: Ht 165.1 cm; Wt 87.6 kg
[~2017-02-27 17:09] MED LIST changes: +LEVO50TA11 PO; -LEVO75 PO
[2017-02-27 17:58] LABS: BASOPHILS # (AUTO) 0.03 K/uL (0.00-0.20); BASOPHILS % (AUTO) 0.8 % (0.0-2.0); EOSINOPHILS # (AUTO) 0.01 K/uL (0.00-0.70); EOSINOPHILS % (AUTO) 0.17 % (1.0-6.0); HEMATOCRIT 43.8 % (36-46); HEMOGLOBIN 14.9 g/dL (12.0-16.0); LYMPHOCYTES # (AUTO) 1.7 K/uL (1.0-4.8); LYMPHOCYTES % (AUTO) 41.3 % (22.0-44.0); MEAN CORPUSCULAR HEMOGLOBIN 31.5 pg (26.0-34.0); MEAN CORPUSCULAR HGB CONC 33.9 G/dL (31.0-37.0); MEAN CORPUSCULAR VOLUME 93 fL (80-100); MONOCYTES # (AUTO) 0.4 K/uL (0.1-1.0); MONOCYTES % (AUTO) 9.6 % (2.0-9.0); NEUTROPHILS % (AUTO) 48.2 % (40.0-70.0); PLATELET COUNT (AUTO) 158 K/uL (150-450); RED BLOOD CELL COUNT(AUTO) 4.72 MIL/uL (4.00-5.20); RED CELL DISTRIBUTION WIDTH 14.7 % (11.5-14.5)
[2017-02-27 18:10] LABS: ANION GAP 11 mmol/L (8-16); CALCIUM, TOTAL 8.9 mg/dL (8.8-10.5); CARBON DIOXIDE 27 mmol/L (22-29); CHLORIDE 101 mmol/L (98-107); CREATININE 0.96 mg/dL (0.60-1.30); GLOMERULAR FILTR. RATE CALC > 60 mL/min (>60); GLUCOSE,RANDOM 132 mg/dL (70-110); POTASSIUM 3.2 mmol/L (3.5-5.1); SODIUM SERUM 139 mmol/L (136-145); UREA NITROGEN, BLOOD 9 mg/dL (7-18)
[2017-02-27 18:18] LABS: ALANINE AMINOTRANSFERASE 14 U/L (12-78); ALBUMIN 3.5 g/dL (3.4-5.0); ALKALINE PHOSPHATASE 73 U/L (46-116); ASPARTATE AMINOTRANSFERASE 12 U/L (15-37); BILIRUBIN,TOTAL 0.3 mg/dL (0.1-1.0)
[2017-02-27 18:39] LABS: SALICYLATE 4.2 mg/dL (2.8-20.0)
[2017-02-27 18:43] LABS: ACETAMINOPHEN < 2 mcg/mL (10-30)
[2017-02-27] MEDS ORDERED: LEVO75 PO (19:22)
[2017-02-27] MEDS ORDERED: SODIUM CHLORIDE 0.9% 1,000 ML IV ONE (19:30)
[2017-02-27] MEDS ORDERED: POTASSIUM CHLORIDE 20 MEQ ER TABLET PO ONE (21:15)
[2017-02-27] MEDS ORDERED: 0.9% SODIUM CHLORIDE 10 ML SYRINGE IVP PRN (21:15)
[2017-02-27 21:41] LABS: ACETAMINOPHEN 2 mcg/mL (10-30); VALPROIC ACID 102 mcg/mL (50-100)
[2017-02-27 22:55] VITALS: BP 94/52
[2017-02-27] MEDS ORDERED: ACETAMINOPHEN 325 MG TABLET PO PRN (23:45)
[2017-02-27] MEDS ORDERED: MAGNESIUM HYDROXIDE SUSPENSION 30 ML UDCUP PO PRN (23:45)
[2017-02-27] MEDS ORDERED: BISACODYL 10 MG RECTAL RECTAL SUPPOSITORY PR PRN (23:45)
[2017-02-27] MEDS: SODIUM CHLORIDE 0.9% 1,000 ML IV SCH (23:56)
[2017-02-28 04:46] VITALS: BP 115/68
[2017-02-28 06:59] LABS: BASOPHILS % (AUTO) 0.2 % (0.0-2.0); EOSINOPHILS % (AUTO) 0.2 % (1.0-6.0); HEMATOCRIT 40.8 % (36-46); HEMOGLOBIN 14.2 g/dL (12.0-16.0); LYMPHOCYTES # (AUTO) 1.7 K/uL (1.0-4.8); LYMPHOCYTES % (AUTO) 53.6 % (22.0-44.0); MEAN CORPUSCULAR HGB CONC 34.7 G/dL (31.0-37.0); MEAN CORPUSCULAR VOLUME 92 fL (80-100); MONOCYTES # (AUTO) 0.2 K/uL (0.1-1.0); NEUTROPHILS # (AUTO) 1.2 K/uL (1.8-7.7); PLATELET COUNT (AUTO) 162 K/uL (150-450); RED BLOOD CELL COUNT(AUTO) 4.43 MIL/uL (4.00-5.20); RED CELL DISTRIBUTION WIDTH 14.9 % (11.5-14.5)
[2017-02-28 07:17] LABS: ALBUMIN 2.9 g/dL (3.4-5.0); BILIRUBIN,TOTAL 0.2 mg/dL (0.1-1.0); CALCIUM, TOTAL 8.2 mg/dL (8.8-10.5); POTASSIUM 4.1 mmol/L (3.5-5.1)
[2017-02-28 08:12] VITALS: BP 105/53
[2017-02-28] MEDS: DOCUSATE SODIUM 100 MG CAPSULE PO SCH ×2 (09:00→20:26)
[2017-02-28] MEDS: PANTOPRAZOLE SODIUM 40 MG DR TABLET PO SCH (09:00)
[2017-02-28 11:26] VITALS: BP 101/62
[2017-02-28] MEDS: SODIUM CHLORIDE 0.9% 1,000 ML IV SCH (13:50)
[2017-02-28 15:24] VITALS: BP 98/57
[2017-02-28 20:41] VITALS: BP 132/74
[2017-02-28] MEDS ORDERED: SODIUM CHLORIDE 0.9% IV ONE (23:00)
[2017-02-28] MEDS ORDERED: LEVOCARNITINE IV ONE (23:00)
[2017-03-01] MEDS: SODIUM CHLORIDE 0.9% 1,000 ML IV SCH ×3 (01:32→19:53)
[2017-03-01 04:24] VITALS: BP 119/71
[2017-03-01 06:33] LABS: BASOPHILS % (AUTO) 0.2 % (0.0-2.0); EOSINOPHILS % (AUTO) 0 % (1.0-6.0); HEMATOCRIT 38.2 % (36-46); HEMOGLOBIN 13.3 g/dL (12.0-16.0); LYMPHOCYTES # (AUTO) 0.9 K/uL (1.0-4.8); MEAN CORPUSCULAR HEMOGLOBIN 32.1 pg (26.0-34.0); MEAN CORPUSCULAR HGB CONC 34.9 G/dL (31.0-37.0); MEAN CORPUSCULAR VOLUME 92 fL (80-100); MONOCYTES % (AUTO) 13.1 % (2.0-9.0); NEUTROPHILS # (AUTO) 5.4 K/uL (1.8-7.7); NEUTROPHILS % (AUTO) 73.7 % (40.0-70.0); PLATELET COUNT (AUTO) 158 K/uL (150-450); RED BLOOD CELL COUNT(AUTO) 4.16 MIL/uL (4.00-5.20); RED CELL DISTRIBUTION WIDTH 15.1 % (11.5-14.5)
[2017-03-01 07:13] LABS: CREATININE 1.07 mg/dL (0.60-1.30); POTASSIUM 3.4 mmol/L (3.5-5.1)
[2017-03-01 07:20] VITALS: BP 117/73
[2017-03-01] MEDS: DOCUSATE SODIUM 100 MG CAPSULE PO SCH ×2 (09:00→19:52)
[2017-03-01] MEDS: PANTOPRAZOLE SODIUM 40 MG DR TABLET PO SCH (09:03)
[2017-03-01] MEDS: LORazepam 2 MG/ML VIAL IVP PRN ×2 (09:06→14:42)
[2017-03-01 11:17] VITALS: BP 128/65
[2017-03-01 15:06] VITALS: BP 112/63
[2017-03-01] MEDS ORDERED: LevOCARNitine 200 MG/ML 5 ML VIAL PO ONE (16:00)
[2017-03-01 20:00] VITALS: BP 133/72
[2017-03-02] VITALS (8 sets, daily range): BP systolic 28–132; BP diastolic 71–86
[2017-03-02] MEDS: PANTOPRAZOLE SODIUM 40 MG DR TABLET PO SCH (08:21)
[2017-03-02] MEDS: DOCUSATE SODIUM 100 MG CAPSULE PO SCH ×2 (08:22→20:44)
[2017-03-02] MEDS: SODIUM CHLORIDE 0.9% 1,000 ML IV SCH (08:27)
[2017-03-02 08:30] LABS: BASOPHILS # (AUTO) 0.03 K/uL (0.00-0.20); BASOPHILS % (AUTO) 0.6 % (0.0-2.0); EOSINOPHILS # (AUTO) 0.02 K/uL (0.00-0.70); EOSINOPHILS % (AUTO) 0.37 % (1.0-6.0); HEMATOCRIT 35.7 % (36-46); LYMPHOCYTES # (AUTO) 1.5 K/uL (1.0-4.8); LYMPHOCYTES % (AUTO) 32.7 % (22.0-44.0); MEAN CORPUSCULAR HEMOGLOBIN 31.4 pg (26.0-34.0); MEAN CORPUSCULAR HGB CONC 33.6 G/dL (31.0-37.0); MEAN CORPUSCULAR VOLUME 93 fL (80-100); MONOCYTES # (AUTO) 0.6 K/uL (0.1-1.0); NEUTROPHILS # (AUTO) 2.5 K/uL (1.8-7.7); NEUTROPHILS % (AUTO) 53.3 % (40.0-70.0); RED BLOOD CELL COUNT(AUTO) 3.82 MIL/uL (4.00-5.20); RED CELL DISTRIBUTION WIDTH 14.9 % (11.5-14.5)
[2017-03-02 08:46] LABS: ANION GAP 8 mmol/L (8-16); CALCIUM, TOTAL 8.1 mg/dL (8.8-10.5); CARBON DIOXIDE 23 mmol/L (22-29); CHLORIDE 109 mmol/L (98-107); CREATININE 0.89 mg/dL (0.60-1.30); GLOMERULAR FILTR. RATE CALC > 60 mL/min (>60); GLUCOSE,RANDOM 87 mg/dL (70-110); POTASSIUM 3.9 mmol/L (3.5-5.1); SODIUM SERUM 140 mmol/L (136-145); UREA NITROGEN, BLOOD 8 mg/dL (7-18)
[2017-03-02 10:30] LABS: PLATELET COUNT (AUTO) 122 K/uL (150-450)
[2017-03-02] MEDS: LORazepam 2 MG/ML VIAL IVP PRN (12:54)
[2017-03-02] MEDS ORDERED: LORazepam 2 MG/ML VIAL IVP PRN (15:45)
[2017-03-02] MEDS ORDERED: PANT40TA25 PO (16:07)
[2017-03-02] MEDS ORDERED: DSS100 PO (16:07)
[2017-03-02] MEDS ORDERED: ACET-2247 PO (16:08)
[2017-03-02] MEDS ORDERED: BISA5TAB12 PO (16:09)
[2017-03-02] MEDS ORDERED: LORA1TAB3 PO (16:09)
[2017-03-02] MEDS ORDERED: MOM30 PO (16:10)
[2017-03-02] MEDS: QUEtiapine FUMARATE 200 MG TABLET PO SCH (20:43)
[2017-03-02] MEDS: DIVALPROEX SODIUM 500 MG DR TABLET PO SCH (20:44)
[2017-03-03 04:36] VITALS: BP 135/77
[2017-03-03] MEDS ORDERED: LEVOTHYROXINE SODIUM 75 MCG TABLET PO SCH (06:30)
[2017-03-03 07:55] VITALS: BP 130/72
[2017-03-03] MEDS: QUEtiapine FUMARATE 200 MG TABLET PO SCH (09:18)
[2017-03-03] MEDS: PANTOPRAZOLE SODIUM 40 MG DR TABLET PO SCH (09:19)
[2017-03-03] MEDS: DOCUSATE SODIUM 100 MG CAPSULE PO SCH (09:19)
[2017-03-03] MEDS: DIVALPROEX SODIUM 500 MG DR TABLET PO SCH (09:19)
[2017-03-03 11:24] LABS: BASOPHILS % (AUTO) 0.1 % (0.0-2.0); EOSINOPHILS % (AUTO) 0.4 % (1.0-6.0); HEMATOCRIT 38.7 % (36-46); HEMOGLOBIN 13.3 g/dL (12.0-16.0); LYMPHOCYTES # (AUTO) 0.7 K/uL (1.0-4.8); LYMPHOCYTES % (AUTO) 12.3 % (22.0-44.0); MEAN CORPUSCULAR HEMOGLOBIN 31.7 pg (26.0-34.0); MEAN CORPUSCULAR HGB CONC 34.3 G/dL (31.0-37.0); MEAN CORPUSCULAR VOLUME 92 fL (80-100); MONOCYTES # (AUTO) 0.5 K/uL (0.1-1.0); MONOCYTES % (AUTO) 8.9 % (2.0-9.0); NEUTROPHILS # (AUTO) 4.6 K/uL (1.8-7.7); NEUTROPHILS % (AUTO) 78.3 % (40.0-70.0); PLATELET COUNT (AUTO) 129 K/uL (150-450); RED BLOOD CELL COUNT(AUTO) 4.19 MIL/uL (4.00-5.20); RED CELL DISTRIBUTION WIDTH 14.6 % (11.5-14.5)
[2017-03-03 11:43] VITALS: BP 118/78
[2017-03-03 11:44] LABS: ANION GAP 8 mmol/L (8-16); CALCIUM, TOTAL 8.7 mg/dL (8.8-10.5); CARBON DIOXIDE 27 mmol/L (22-29); CHLORIDE 105 mmol/L (98-107); CREATININE 0.94 mg/dL (0.60-1.30); GLOMERULAR FILTR. RATE CALC > 60 mL/min (>60); GLUCOSE,RANDOM 102 mg/dL (70-110); SODIUM SERUM 140 mmol/L (136-145); UREA NITROGEN, BLOOD 9 mg/dL (7-18)
== END 2017-03-03 12:55 | DRG 812 ==
LOC: EMS 17:10 → 5S 21:26 → 5N 03-01 18:00 → 6N 03-02 18:39
PROVIDERS: ADMIT Internal Medicine; ATTEND Internal Medicine
DX: T43.592A Poisoning by other antipsychotics and neuroleptics, intentional self-harm, initial encounter (principal); F25.0 Schizoaffective disorder, bipolar type; F32.9 Major depressive disorder, single episode, unspecified; J44.9 Chronic obstructive pulmonary disease, unspecified; F17.210 Nicotine dependence, cigarettes, uncomplicated; E03.9 Hypothyroidism, unspecified; K21.9 Gastro-esophageal reflux disease without esophagitis; Z79.899 Other long term (current) drug therapy; Z81.8 Family history of other mental and behavioral disorders; Y92.89 Other specified places as the place of occurrence of the external cause; Z88.2 Allergy status to sulfonamides; Z88.5 Allergy status to narcotic agent; Z91.013 Allergy to seafood; Z71.6 Tobacco abuse counseling
CPT/HCPCS: 83735; 87081; 93005; 96360; 96361; 99285; G0480; G0481; J1955; J2060; J7030; J7040

== ENCOUNTER 2017-03-03 10:31 | Inpatient (IN) | payer MEDICAID, OTHER ==
[~2017-03-03] VITALS: Ht 167.6 cm; Wt 67.2 kg
[~2017-03-03 10:31] MED LIST changes: +ACET-2247 PO; +BISA5TAB12 PO; +DIVA-78 PO; -DIVA500T35 PO; +DSS100 PO; -LEVO50TA11 PO; +LEVO75 PO; +LORA1TAB3 PO; +MOM30 PO; -OMEP20 PO; +PANT40TA25 PO
[2017-03-03 14:04] VITALS: BP 120/68
[2017-03-03] MEDS: HALOPERIDOL 5 MG TABLET PO PRN ×2 (14:45→20:10)
[2017-03-03] MEDS: LORazepam 2 MG TABLET PO PRN ×2 (14:45→20:10)
[2017-03-03] MEDS: DIVALPROEX SODIUM 500 MG DR TABLET PO SCH (17:06)
[2017-03-03] MEDS: QUEtiapine FUMARATE 200 MG TABLET PO SCH (17:06)
[2017-03-03 17:54] VITALS: BP 128/63
[2017-03-03] MEDS ORDERED: ALBUTEROL SULFATE HFA 90 MCG/PUFF 8 GM INHALER IH PRN (20:00)
[2017-03-03] MEDS: ZOLPIDEM TARTRATE 10 MG TABLET PO PRN (23:06)
[2017-03-04] MEDS: LEVOTHYROXINE SODIUM 75 MCG TABLET PO SCH (06:34)
[2017-03-04] MEDS: PANTOPRAZOLE SODIUM 40 MG DR TABLET PO SCH (06:34)
[2017-03-04] MEDS: DIVALPROEX SODIUM 500 MG DR TABLET PO SCH ×2 (08:10→16:38)
[2017-03-04] MEDS: QUEtiapine FUMARATE 200 MG TABLET PO SCH ×2 (08:10→16:38)
[2017-03-04] MEDS: DOCUSATE SODIUM 100 MG CAPSULE PO SCH ×2 (08:11→16:38)
[2017-03-04 08:13] VITALS: BP 115/74
[2017-03-04] MEDS: HALOPERIDOL 5 MG TABLET PO PRN ×2 (11:03→21:00)
[2017-03-04] MEDS: LORazepam 2 MG TABLET PO PRN ×3 (11:03→22:45)
[2017-03-04 16:00] VITALS: BP 143/74
[2017-03-04] MEDS ORDERED: TraZODone HCL 100 MG TABLET PO SCH (21:00)
[2017-03-04] MEDS: ZOLPIDEM TARTRATE 10 MG TABLET PO PRN (21:00)
[2017-03-05 05:05] VITALS: BP 113/70
[2017-03-05] MEDS: LEVOTHYROXINE SODIUM 75 MCG TABLET PO SCH (06:50)
[2017-03-05] MEDS: PANTOPRAZOLE SODIUM 40 MG DR TABLET PO SCH ×2 (06:50→08:23)
[2017-03-05] MEDS: DOCUSATE SODIUM 100 MG CAPSULE PO SCH ×2 (08:22→16:44)
[2017-03-05] MEDS: DIVALPROEX SODIUM 500 MG DR TABLET PO SCH ×2 (08:22→16:44)
[2017-03-05] MEDS: PALIPERIDONE 3 MG ER TABLET PO SCH ×2 (08:23→16:44)
[2017-03-05 09:30] VITALS: BP 129/79
[2017-03-05] MEDS: LORazepam 2 MG TABLET PO PRN ×2 (09:42→16:45)
[2017-03-05] MEDS: HALOPERIDOL 5 MG TABLET PO PRN ×2 (09:43→16:45)
[2017-03-05 16:00] VITALS: BP 141/60
[2017-03-05] MEDS: ZOLPIDEM TARTRATE 10 MG TABLET PO PRN (20:35)
[2017-03-05] MEDS: TraZODone HCL 100 MG TABLET PO SCH (20:35)
[2017-03-06] MEDS: LEVOTHYROXINE SODIUM 75 MCG TABLET PO SCH (06:38)
[2017-03-06] MEDS: LORazepam 2 MG TABLET PO PRN ×3 (07:46→21:22)
[2017-03-06] MEDS: PALIPERIDONE 6 MG ER TABLET PO SCH ×2 (08:10→16:01)
[2017-03-06 08:11] VITALS: BP 116/72
[2017-03-06] MEDS: DOCUSATE SODIUM 100 MG CAPSULE PO SCH ×2 (08:11→16:01)
[2017-03-06] MEDS: DIVALPROEX SODIUM 500 MG DR TABLET PO SCH ×2 (08:11→16:02)
[2017-03-06] MEDS: HALOPERIDOL 5 MG TABLET PO PRN ×2 (08:15→21:23)
[2017-03-06 09:08] VITALS: BP 116/72
[2017-03-06 16:30] VITALS: BP 111/81
[2017-03-06] MEDS: TraZODone HCL 100 MG TABLET PO SCH (21:22)
[2017-03-06] MEDS: ZOLPIDEM TARTRATE 10 MG TABLET PO PRN (22:33)
[2017-03-07 06:45] VITALS: BP 141/106
[2017-03-07] MEDS: PANTOPRAZOLE SODIUM 40 MG DR TABLET PO SCH (06:51)
[2017-03-07] MEDS: LEVOTHYROXINE SODIUM 75 MCG TABLET PO SCH (06:51)
[2017-03-07] MEDS: PALIPERIDONE 6 MG ER TABLET PO SCH ×2 (08:03→17:21)
[2017-03-07] MEDS: DOCUSATE SODIUM 100 MG CAPSULE PO SCH ×2 (08:03→17:20)
[2017-03-07] MEDS: DIVALPROEX SODIUM 500 MG DR TABLET PO SCH ×2 (08:03→17:20)
[2017-03-07 08:20] VITALS: BP 111/66
[2017-03-07] MEDS: PALIPERIDONE PALMITATE 234 MG/1.5 ML SYRINGE IM SCH (09:16)
[2017-03-07] MEDS: HALOPERIDOL 5 MG TABLET PO PRN ×2 (09:33→15:02)
[2017-03-07] MEDS: LORazepam 2 MG TABLET PO PRN (11:38)
[2017-03-07] MEDS: ZOLPIDEM TARTRATE 10 MG TABLET PO PRN (20:40)
[2017-03-07] MEDS: TraZODone HCL 100 MG TABLET PO SCH (20:40)
[2017-03-08 01:30] VITALS: BP 103/51
[2017-03-08] MEDS: HALOPERIDOL 5 MG TABLET PO PRN ×2 (01:30→17:55)
[2017-03-08] MEDS: LEVOTHYROXINE SODIUM 75 MCG TABLET PO SCH (07:06)
[2017-03-08] MEDS: PANTOPRAZOLE SODIUM 40 MG DR TABLET PO SCH (07:06)
[2017-03-08 08:16] VITALS: BP 125/87
[2017-03-08 09:04] VITALS: BP 122/65
[2017-03-08] MEDS: PALIPERIDONE 6 MG ER TABLET PO SCH ×2 (09:23→16:46)
[2017-03-08] MEDS: DOCUSATE SODIUM 100 MG CAPSULE PO SCH ×2 (09:23→16:48)
[2017-03-08] MEDS: DIVALPROEX SODIUM 500 MG DR TABLET PO SCH ×2 (09:23→16:48)
[2017-03-08] MEDS ORDERED: GuaiFENesin/D-METHORPHAN [SUGAR-FREE] 200-20MG/10 ML SYRUP UDCUP PO PRN (11:00)
[2017-03-08 17:38] VITALS: BP 110/64
[2017-03-08] MEDS: LORazepam 2 MG TABLET PO PRN (17:55)
[2017-03-08] MEDS: ZOLPIDEM TARTRATE 10 MG TABLET PO PRN (19:29)
[2017-03-08] MEDS: TraZODone HCL 100 MG TABLET PO SCH (20:34)
[2017-03-09] MEDS: LEVOTHYROXINE SODIUM 75 MCG TABLET PO SCH (06:46)
[2017-03-09] MEDS: PANTOPRAZOLE SODIUM 40 MG DR TABLET PO SCH (06:46)
[2017-03-09 08:29] VITALS: BP 93/57
[2017-03-09] MEDS: DOCUSATE SODIUM 100 MG CAPSULE PO SCH ×2 (09:13→16:09)
[2017-03-09] MEDS: PALIPERIDONE 6 MG ER TABLET PO SCH ×2 (09:13→16:08)
[2017-03-09] MEDS: DIVALPROEX SODIUM 500 MG DR TABLET PO SCH ×2 (09:13→16:09)
[2017-03-09] MEDS: HALOPERIDOL 5 MG TABLET PO PRN (10:44)
[2017-03-09] MEDS: LORazepam 2 MG TABLET PO PRN ×3 (10:44→21:03)
[2017-03-09 16:16] VITALS: BP 129/77
[2017-03-09] MEDS ORDERED: LORazepam 2 MG/ML VIAL ONE (17:31)
[2017-03-09] MEDS ORDERED: DiphenhydrAMINE HCL 50 MG/ML VIAL ONE (17:32)
[2017-03-09] MEDS ORDERED: HALOPERIDOL LACTATE 5 MG/ML VIAL ONE (17:32)
[2017-03-09] MEDS: TraZODone HCL 100 MG TABLET PO SCH (21:01)
[2017-03-09] MEDS: ZOLPIDEM TARTRATE 10 MG TABLET PO PRN (21:03)
[2017-03-10] MEDS: LEVOTHYROXINE SODIUM 75 MCG TABLET PO SCH (06:48)
[2017-03-10] MEDS: PANTOPRAZOLE SODIUM 40 MG DR TABLET PO SCH (06:49)
[2017-03-10] MEDS: LORazepam 2 MG TABLET PO PRN ×3 (07:46→18:21)
[2017-03-10] MEDS: HALOPERIDOL 5 MG TABLET PO PRN ×3 (07:46→18:22)
[2017-03-10 08:00] VITALS: BP 130/87
[2017-03-10] MEDS: PALIPERIDONE 6 MG ER TABLET PO SCH ×2 (08:42→16:32)
[2017-03-10] MEDS: DIVALPROEX SODIUM 500 MG DR TABLET PO SCH ×2 (08:42→16:32)
[2017-03-10] MEDS: DOCUSATE SODIUM 100 MG CAPSULE PO SCH ×2 (08:43→16:33)
[2017-03-10 16:01] VITALS: BP 125/74
[2017-03-10] MEDS: TraZODone HCL 100 MG TABLET PO SCH (20:45)
[2017-03-10] MEDS: ZOLPIDEM TARTRATE 10 MG TABLET PO PRN (22:41)
[2017-03-11] MEDS: PANTOPRAZOLE SODIUM 40 MG DR TABLET PO SCH (07:10)
[2017-03-11] MEDS: LEVOTHYROXINE SODIUM 75 MCG TABLET PO SCH (07:10)
[2017-03-11 08:02] VITALS: BP 126/79
[2017-03-11] MEDS: DIVALPROEX SODIUM 500 MG DR TABLET PO SCH ×2 (08:22→16:56)
[2017-03-11] MEDS: PALIPERIDONE 6 MG ER TABLET PO SCH ×2 (08:22→16:55)
[2017-03-11] MEDS: DOCUSATE SODIUM 100 MG CAPSULE PO SCH ×2 (08:22→16:55)
[2017-03-11] MEDS: HALOPERIDOL 5 MG TABLET PO PRN ×2 (08:23→16:56)
[2017-03-11] MEDS: LORazepam 2 MG TABLET PO PRN ×2 (08:23→16:56)
[2017-03-11] MEDS: NICOTINE 21 MG/24 HOUR PATCH TD SCH (14:33)
[2017-03-11 16:15] VITALS: BP 119/72
[2017-03-11] MEDS: ZOLPIDEM TARTRATE 10 MG TABLET PO PRN (20:49)
[2017-03-11] MEDS: TraZODone HCL 100 MG TABLET PO SCH (20:49)
[2017-03-12] MEDS: LORazepam 2 MG TABLET PO PRN ×2 (06:02→15:48)
[2017-03-12] MEDS: PANTOPRAZOLE SODIUM 40 MG DR TABLET PO SCH (07:05)
[2017-03-12] MEDS: LEVOTHYROXINE SODIUM 75 MCG TABLET PO SCH (07:05)
[2017-03-12 08:00] VITALS: BP 136/75
[2017-03-12] MEDS: DIVALPROEX SODIUM 500 MG DR TABLET PO SCH ×2 (08:29→16:20)
[2017-03-12] MEDS: DOCUSATE SODIUM 100 MG CAPSULE PO SCH ×2 (08:29→16:20)
[2017-03-12] MEDS: PALIPERIDONE 6 MG ER TABLET PO SCH ×2 (08:29→16:20)
[2017-03-12] MEDS: NICOTINE 21 MG/24 HOUR PATCH TD SCH (08:30)
[2017-03-12] MEDS: HALOPERIDOL 5 MG TABLET PO PRN (15:48)
[2017-03-12 16:00] VITALS: BP 116/78
[2017-03-12] MEDS: ZOLPIDEM TARTRATE 10 MG TABLET PO PRN (20:10)
[2017-03-12] MEDS: TraZODone HCL 100 MG TABLET PO SCH (20:10)
[2017-03-13] MEDS: PANTOPRAZOLE SODIUM 40 MG DR TABLET PO SCH (06:44)
[2017-03-13] MEDS: LEVOTHYROXINE SODIUM 75 MCG TABLET PO SCH (06:44)
[2017-03-13 08:00] VITALS: BP 108/72
[2017-03-13] MEDS: DOCUSATE SODIUM 100 MG CAPSULE PO SCH ×2 (08:16→16:21)
[2017-03-13] MEDS: PALIPERIDONE 6 MG ER TABLET PO SCH ×2 (08:16→16:21)
[2017-03-13] MEDS: DIVALPROEX SODIUM 500 MG DR TABLET PO SCH ×2 (08:16→16:21)
[2017-03-13] MEDS: LORazepam 2 MG TABLET PO PRN (08:21)
[2017-03-13] MEDS: NICOTINE 21 MG/24 HOUR PATCH TD SCH (08:25)
[2017-03-13 16:42] VITALS: BP 104/84
[2017-03-13] MEDS: RisperiDONE 1 MG TABLET PO SCH (18:20)
[2017-03-13] MEDS: TraZODone HCL 100 MG TABLET PO SCH (20:48)
[2017-03-14] MEDS: LEVOTHYROXINE SODIUM 75 MCG TABLET PO SCH (06:45)
[2017-03-14] MEDS: PANTOPRAZOLE SODIUM 40 MG DR TABLET PO SCH (06:45)
[2017-03-14 08:00] VITALS: BP 114/70
[2017-03-14] MEDS: NICOTINE 21 MG/24 HOUR PATCH TD SCH (08:10)
[2017-03-14] MEDS: PALIPERIDONE 6 MG ER TABLET PO SCH ×2 (08:11→16:33)
[2017-03-14] MEDS: DOCUSATE SODIUM 100 MG CAPSULE PO SCH ×2 (08:11→16:33)
[2017-03-14] MEDS: LORazepam 2 MG TABLET PO PRN ×3 (08:11→17:02)
[2017-03-14] MEDS: HALOPERIDOL 5 MG TABLET PO PRN ×3 (08:11→17:02)
[2017-03-14] MEDS: RisperiDONE 1 MG TABLET PO SCH ×2 (08:11→16:33)
[2017-03-14] MEDS: DIVALPROEX SODIUM 500 MG DR TABLET PO SCH ×2 (08:11→16:32)
[2017-03-14] MEDS ORDERED: TUBERCULIN, PURIFIED PROTEIN DERIVATIVE 5 TU/0.1 ML SYG ID ONE (09:30)
[2017-03-14 17:28] VITALS: BP 122/78
[2017-03-14] MEDS ORDERED: DiphenhydrAMINE HCL 50 MG/ML VIAL IM ONE (19:00)
[2017-03-14] MEDS ORDERED: HALOPERIDOL LACTATE 5 MG/ML VIAL IM ONE (19:00)
[2017-03-14] MEDS ORDERED: LORazepam 2 MG/ML VIAL IM ONE (19:00)
[2017-03-14] MEDS: TraZODone HCL 100 MG TABLET PO SCH ×2 (21:00→21:32)
[2017-03-15] MEDS: ZOLPIDEM TARTRATE 10 MG TABLET PO PRN (02:28)
[2017-03-15] MEDS: LEVOTHYROXINE SODIUM 75 MCG TABLET PO SCH (07:07)
[2017-03-15] MEDS: PANTOPRAZOLE SODIUM 40 MG DR TABLET PO SCH (07:07)
[2017-03-15 08:00] VITALS: BP 138/78
[2017-03-15] MEDS: HALOPERIDOL 5 MG TABLET PO PRN (08:23)
[2017-03-15] MEDS: DIVALPROEX SODIUM 500 MG DR TABLET PO SCH ×2 (08:23→16:18)
[2017-03-15] MEDS: LORazepam 2 MG TABLET PO PRN (08:23)
[2017-03-15] MEDS: DOCUSATE SODIUM 100 MG CAPSULE PO SCH ×2 (08:24→16:18)
[2017-03-15] MEDS: RisperiDONE 1 MG TABLET PO SCH ×2 (08:24→16:18)
[2017-03-15] MEDS: PALIPERIDONE 6 MG ER TABLET PO SCH ×2 (08:24→16:18)
[2017-03-15] MEDS: NICOTINE 21 MG/24 HOUR PATCH TD SCH (08:29)
[2017-03-15 18:05] VITALS: BP 102/72
[2017-03-15] MEDS: TraZODone HCL 100 MG TABLET PO SCH (20:22)
[2017-03-16] MEDS: LORazepam 2 MG TABLET PO PRN ×2 (06:06→17:14)
[2017-03-16] MEDS: HALOPERIDOL 5 MG TABLET PO PRN ×2 (06:06→17:14)
[2017-03-16] MEDS: PANTOPRAZOLE SODIUM 40 MG DR TABLET PO SCH (06:52)
[2017-03-16] MEDS: LEVOTHYROXINE SODIUM 75 MCG TABLET PO SCH (06:52)
[2017-03-16] MEDS: DOCUSATE SODIUM 100 MG CAPSULE PO SCH ×2 (08:55→16:10)
[2017-03-16] MEDS: RisperiDONE 1 MG TABLET PO SCH ×2 (08:55→16:10)
[2017-03-16] MEDS: DIVALPROEX SODIUM 500 MG DR TABLET PO SCH ×2 (08:55→16:10)
[2017-03-16] MEDS: PALIPERIDONE 6 MG ER TABLET PO SCH ×2 (08:56→16:10)
[2017-03-16] MEDS: NICOTINE 21 MG/24 HOUR PATCH TD SCH (08:59)
[2017-03-16 09:45] VITALS: BP 120/64
[2017-03-16] MEDS: GuaiFENesin/D-METHORPHAN [SUGAR-FREE] 200-20MG/10 ML SYRUP UDCUP PO PRN (16:43)
[2017-03-16 19:27] VITALS: BP 135/77
[2017-03-16] MEDS: TraZODone HCL 100 MG TABLET PO SCH (20:19)
[2017-03-16] MEDS: ZOLPIDEM TARTRATE 10 MG TABLET PO PRN (22:13)
[2017-03-17 02:15] VITALS: BP 133/67
[2017-03-17] MEDS: LORazepam 2 MG TABLET PO PRN (02:18)
[2017-03-17] MEDS: HALOPERIDOL 5 MG TABLET PO PRN (02:19)
[2017-03-17] MEDS: LEVOTHYROXINE SODIUM 75 MCG TABLET PO SCH (06:43)
[2017-03-17] MEDS: PANTOPRAZOLE SODIUM 40 MG DR TABLET PO SCH (06:43)
[2017-03-17 08:09] VITALS: BP 119/50
[2017-03-17] MEDS: DOCUSATE SODIUM 100 MG CAPSULE PO SCH ×2 (08:16→16:26)
[2017-03-17] MEDS: DIVALPROEX SODIUM 500 MG DR TABLET PO SCH ×2 (08:16→16:26)
[2017-03-17] MEDS: NICOTINE 21 MG/24 HOUR PATCH TD SCH (08:18)
[2017-03-17] MEDS: PALIPERIDONE 6 MG ER TABLET PO SCH ×2 (08:18→16:26)
[2017-03-17] MEDS: RisperiDONE 1 MG TABLET PO SCH ×2 (08:19→16:26)
[2017-03-17] MEDS: GuaiFENesin/D-METHORPHAN [SUGAR-FREE] 200-20MG/10 ML SYRUP UDCUP PO PRN ×2 (11:41→19:01)
[2017-03-17 17:48] VITALS: BP 123/69
[2017-03-17] MEDS: TraZODone HCL 100 MG TABLET PO SCH (20:12)
[2017-03-17] MEDS: ZOLPIDEM TARTRATE 10 MG TABLET PO PRN (20:59)
[2017-03-18] MEDS: PANTOPRAZOLE SODIUM 40 MG DR TABLET PO SCH (06:40)
[2017-03-18] MEDS: LEVOTHYROXINE SODIUM 75 MCG TABLET PO SCH (06:40)
[2017-03-18 08:16] VITALS: BP 156/72
[2017-03-18] MEDS: DOCUSATE SODIUM 100 MG CAPSULE PO SCH ×2 (09:20→16:28)
[2017-03-18] MEDS: RisperiDONE 1 MG TABLET PO SCH ×2 (09:21→16:29)
[2017-03-18] MEDS: PALIPERIDONE 6 MG ER TABLET PO SCH ×2 (09:21→16:29)
[2017-03-18] MEDS: DIVALPROEX SODIUM 500 MG DR TABLET PO SCH ×2 (09:21→16:28)
[2017-03-18] MEDS: NICOTINE 21 MG/24 HOUR PATCH TD SCH (09:22)
[2017-03-18] MEDS: HALOPERIDOL 5 MG TABLET PO PRN ×2 (09:22→16:30)
[2017-03-18] MEDS: LORazepam 2 MG TABLET PO PRN ×2 (09:22→16:30)
[2017-03-18] MEDS: GuaiFENesin/D-METHORPHAN [SUGAR-FREE] 200-20MG/10 ML SYRUP UDCUP PO PRN (18:10)
[2017-03-18 19:13] VITALS: BP 146/81
[2017-03-18] MEDS: TraZODone HCL 100 MG TABLET PO SCH (20:45)
[2017-03-19] MEDS: LORazepam 2 MG TABLET PO PRN ×2 (04:38→19:12)
[2017-03-19] MEDS: HALOPERIDOL 5 MG TABLET PO PRN (05:50)
[2017-03-19] MEDS: LEVOTHYROXINE SODIUM 75 MCG TABLET PO SCH (06:56)
[2017-03-19] MEDS: PANTOPRAZOLE SODIUM 40 MG DR TABLET PO SCH (06:56)
[2017-03-19] MEDS: DOCUSATE SODIUM 100 MG CAPSULE PO SCH ×2 (08:00→16:58)
[2017-03-19] MEDS: DIVALPROEX SODIUM 500 MG DR TABLET PO SCH ×2 (08:00→16:57)
[2017-03-19] MEDS: NICOTINE 21 MG/24 HOUR PATCH TD SCH (08:01)
[2017-03-19] MEDS: PALIPERIDONE 6 MG ER TABLET PO SCH ×2 (08:01→16:58)
[2017-03-19] MEDS: RisperiDONE 2 MG TABLET PO SCH ×2 (08:01→16:59)
[2017-03-19 08:27] VITALS: BP 120/76
[2017-03-19 16:00] VITALS: BP 124/78
[2017-03-19] MEDS: BENZTROPINE MESYLATE 1 MG TABLET PO SCH (16:57)
[2017-03-19] MEDS: GuaiFENesin/D-METHORPHAN [SUGAR-FREE] 200-20MG/10 ML SYRUP UDCUP PO PRN (17:36)
[2017-03-19] MEDS: TraZODone HCL 100 MG TABLET PO SCH (20:16)
[2017-03-20] MEDS: ZOLPIDEM TARTRATE 10 MG TABLET PO PRN (01:17)
[2017-03-20] MEDS: LORazepam 2 MG TABLET PO PRN ×2 (01:17→16:22)
[2017-03-20] MEDS: PANTOPRAZOLE SODIUM 40 MG DR TABLET PO SCH (06:17)
[2017-03-20] MEDS: LEVOTHYROXINE SODIUM 75 MCG TABLET PO SCH (06:17)
[2017-03-20] MEDS: DIVALPROEX SODIUM 500 MG DR TABLET PO SCH ×2 (08:16→16:22)
[2017-03-20] MEDS: PALIPERIDONE 6 MG ER TABLET PO SCH ×2 (08:16→16:22)
[2017-03-20] MEDS: RisperiDONE 2 MG TABLET PO SCH ×2 (08:16→16:22)
[2017-03-20] MEDS: BENZTROPINE MESYLATE 1 MG TABLET PO SCH ×2 (08:16→16:23)
[2017-03-20] MEDS: NICOTINE 21 MG/24 HOUR PATCH TD SCH (08:16)
[2017-03-20] MEDS: DOCUSATE SODIUM 100 MG CAPSULE PO SCH ×2 (08:18→16:22)
[2017-03-20 09:02] VITALS: BP 130/78
[2017-03-20 16:16] VITALS: BP 128/72
[2017-03-20] MEDS: TraZODone HCL 100 MG TABLET PO SCH (21:35)
[2017-03-21] MEDS: LEVOTHYROXINE SODIUM 75 MCG TABLET PO SCH (06:59)
[2017-03-21] MEDS: PANTOPRAZOLE SODIUM 40 MG DR TABLET PO SCH (06:59)
[2017-03-21] MEDS: RisperiDONE 2 MG TABLET PO SCH ×2 (08:27→17:28)
[2017-03-21] MEDS: DOCUSATE SODIUM 100 MG CAPSULE PO SCH ×2 (08:27→17:27)
[2017-03-21] MEDS: DIVALPROEX SODIUM 500 MG DR TABLET PO SCH ×2 (08:27→17:27)
[2017-03-21] MEDS: BENZTROPINE MESYLATE 1 MG TABLET PO SCH ×2 (08:28→17:28)
[2017-03-21] MEDS: PALIPERIDONE 6 MG ER TABLET PO SCH ×2 (08:28→17:27)
[2017-03-21] MEDS: NICOTINE 21 MG/24 HOUR PATCH TD SCH (08:28)
[2017-03-21 17:55] VITALS: BP 126/71
[2017-03-21] MEDS: TraZODone HCL 100 MG TABLET PO SCH (20:30)
[2017-03-21] MEDS: ZOLPIDEM TARTRATE 10 MG TABLET PO PRN (20:30)
[2017-03-22] MEDS: HALOPERIDOL 5 MG TABLET PO PRN (04:49)
[2017-03-22] MEDS: LORazepam 2 MG TABLET PO PRN (05:52)
[2017-03-22] MEDS: LEVOTHYROXINE SODIUM 75 MCG TABLET PO SCH (06:06)
[2017-03-22] MEDS: PANTOPRAZOLE SODIUM 40 MG DR TABLET PO SCH (06:06)
[2017-03-22 08:11] VITALS: BP 101/72
[2017-03-22] MEDS: NICOTINE 21 MG/24 HOUR PATCH TD SCH (10:44)
[2017-03-22] MEDS: PALIPERIDONE 6 MG ER TABLET PO SCH ×2 (10:46→17:00)
[2017-03-22] MEDS: BENZTROPINE MESYLATE 1 MG TABLET PO SCH ×2 (10:46→17:02)
[2017-03-22] MEDS: DIVALPROEX SODIUM 500 MG DR TABLET PO SCH ×2 (10:46→17:02)
[2017-03-22] MEDS: DOCUSATE SODIUM 100 MG CAPSULE PO SCH ×2 (10:46→17:02)
[2017-03-22] MEDS: RisperiDONE 2 MG TABLET PO SCH ×2 (10:46→17:02)
[2017-03-22] MEDS: GuaiFENesin/D-METHORPHAN [SUGAR-FREE] 200-20MG/10 ML SYRUP UDCUP PO PRN (12:11)
[2017-03-22] MEDS ORDERED: LORazepam 2 MG/ML VIAL IM ONE (13:15)
[2017-03-22] MEDS ORDERED: DiphenhydrAMINE HCL 50 MG/ML VIAL IM ONE (13:15)
[2017-03-22] MEDS ORDERED: HALOPERIDOL LACTATE 5 MG/ML VIAL IM ONE (13:15)
[2017-03-22] MEDS ORDERED: LORazepam 2 MG/ML VIAL ONE (13:17)
[2017-03-22] MEDS ORDERED: DiphenhydrAMINE HCL 50 MG/ML VIAL ONE (13:18)
[2017-03-22] MEDS ORDERED: HALOPERIDOL LACTATE 5 MG/ML VIAL ONE (13:18)
[2017-03-22 17:13] VITALS: BP 128/114
[2017-03-22] MEDS: TraZODone HCL 100 MG TABLET PO SCH ×2 (21:00→22:18)
[2017-03-22] MEDS: ZOLPIDEM TARTRATE 10 MG TABLET PO PRN (22:22)
[2017-03-23] MEDS: LEVOTHYROXINE SODIUM 75 MCG TABLET PO SCH (06:55)
[2017-03-23] MEDS: PANTOPRAZOLE SODIUM 40 MG DR TABLET PO SCH (06:55)
[2017-03-23] MEDS: PALIPERIDONE 6 MG ER TABLET PO SCH ×2 (07:26→17:13)
[2017-03-23] MEDS: LORazepam 2 MG TABLET PO PRN ×3 (07:26→21:21)
[2017-03-23] MEDS: BENZTROPINE MESYLATE 1 MG TABLET PO SCH ×2 (07:26→17:12)
[2017-03-23] MEDS: DIVALPROEX SODIUM 500 MG DR TABLET PO SCH ×2 (07:26→17:13)
[2017-03-23] MEDS: DOCUSATE SODIUM 100 MG CAPSULE PO SCH ×2 (07:26→17:12)
[2017-03-23] MEDS: NICOTINE 21 MG/24 HOUR PATCH TD SCH (07:26)
[2017-03-23] MEDS: RisperiDONE 2 MG TABLET PO SCH ×2 (07:26→17:12)
[2017-03-23] MEDS: HALOPERIDOL 5 MG TABLET PO PRN ×3 (07:26→21:21)
[2017-03-23 08:40] VITALS: BP 134/74
[2017-03-23 08:44] VITALS: BP 134/74
[2017-03-23] MEDS ORDERED: LORazepam 2 MG/ML VIAL IM ONE (09:45)
[2017-03-23] MEDS ORDERED: DiphenhydrAMINE HCL 50 MG/ML VIAL IM ONE (09:45)
[2017-03-23] MEDS ORDERED: HALOPERIDOL LACTATE 5 MG/ML VIAL IM ONE (09:45)
[2017-03-23] MEDS: BISACODYL 5 MG EC TABLET PO PRN (17:14)
[2017-03-23] MEDS: ZOLPIDEM TARTRATE 10 MG TABLET PO PRN (19:02)
[2017-03-23] MEDS: TraZODone HCL 100 MG TABLET PO SCH (20:25)
[2017-03-24] MEDS: LORazepam 2 MG TABLET PO PRN ×2 (04:14→18:24)
[2017-03-24] MEDS: HALOPERIDOL 5 MG TABLET PO PRN ×2 (04:14→18:25)
[2017-03-24] MEDS: LEVOTHYROXINE SODIUM 75 MCG TABLET PO SCH (06:59)
[2017-03-24] MEDS: PANTOPRAZOLE SODIUM 40 MG DR TABLET PO SCH (06:59)
[2017-03-24] MEDS: PALIPERIDONE 6 MG ER TABLET PO SCH ×2 (08:17→18:08)
[2017-03-24] MEDS: BENZTROPINE MESYLATE 1 MG TABLET PO SCH ×2 (08:17→18:08)
[2017-03-24] MEDS: DIVALPROEX SODIUM 500 MG DR TABLET PO SCH (08:18)
[2017-03-24] MEDS: DOCUSATE SODIUM 100 MG CAPSULE PO SCH ×2 (08:18→18:08)
[2017-03-24] MEDS: RisperiDONE 2 MG TABLET PO SCH ×2 (08:19→18:08)
[2017-03-24] MEDS: NICOTINE 21 MG/24 HOUR PATCH TD SCH (08:23)
[2017-03-24 08:31] VITALS: BP 108/67
[2017-03-24 08:32] VITALS: BP 108/67
[2017-03-24] MEDS ORDERED: DiphenhydrAMINE HCL 50 MG/ML VIAL IM ONE ×2 (11:15→20:00)
[2017-03-24] MEDS ORDERED: LORazepam 2 MG/ML VIAL IM ONE ×2 (11:15→20:00)
[2017-03-24] MEDS ORDERED: HALOPERIDOL LACTATE 5 MG/ML VIAL IM ONE ×2 (11:15→20:00)
[2017-03-24 16:55] VITALS: BP 120/69
[2017-03-24] MEDS: DIVALPROEX SODIUM 250 MG DR TABLET PO SCH (18:08)
[2017-03-24] MEDS: TraZODone HCL 100 MG TABLET PO SCH (21:29)
[2017-03-24] MEDS: ZOLPIDEM TARTRATE 10 MG TABLET PO PRN (22:41)
[2017-03-25 03:03] LABS: HIV 1-2 SCREEN 4TH GEN W/RFLX Non Reactive (Non Reactive)
[2017-03-25] MEDS: LEVOTHYROXINE SODIUM 75 MCG TABLET PO SCH (07:54)
[2017-03-25] MEDS: PANTOPRAZOLE SODIUM 40 MG DR TABLET PO SCH (07:54)
[2017-03-25] MEDS: LORazepam 2 MG TABLET PO PRN ×3 (08:40→19:08)
[2017-03-25] MEDS: PALIPERIDONE 6 MG ER TABLET PO SCH ×2 (08:40→16:14)
[2017-03-25] MEDS: DIVALPROEX SODIUM 250 MG DR TABLET PO SCH ×2 (08:40→16:14)
[2017-03-25] MEDS: RisperiDONE 2 MG TABLET PO SCH ×2 (08:40→16:14)
[2017-03-25] MEDS: DOCUSATE SODIUM 100 MG CAPSULE PO SCH ×2 (08:41→16:16)
[2017-03-25] MEDS: NICOTINE 21 MG/24 HOUR PATCH TD SCH (08:41)
[2017-03-25] MEDS: BENZTROPINE MESYLATE 1 MG TABLET PO SCH ×2 (08:41→16:14)
[2017-03-25 08:53] VITALS: BP 128/71
[2017-03-25] MEDS: HALOPERIDOL 5 MG TABLET PO PRN ×2 (14:30→19:08)
[2017-03-25 17:59] VITALS: BP 118/88
[2017-03-25] MEDS: TraZODone HCL 100 MG TABLET PO SCH (20:40)
[2017-03-26 05:22] VITALS: BP 116/68
[2017-03-26] MEDS: LORazepam 2 MG TABLET PO PRN ×3 (05:42→17:26)
[2017-03-26] MEDS: HALOPERIDOL 5 MG TABLET PO PRN ×3 (05:43→20:32)
[2017-03-26] MEDS: LEVOTHYROXINE SODIUM 75 MCG TABLET PO SCH (07:05)
[2017-03-26] MEDS: PANTOPRAZOLE SODIUM 40 MG DR TABLET PO SCH (07:05)
[2017-03-26] MEDS: DOCUSATE SODIUM 100 MG CAPSULE PO SCH ×2 (08:00→17:26)
[2017-03-26] MEDS: BENZTROPINE MESYLATE 1 MG TABLET PO SCH ×2 (08:00→17:26)
[2017-03-26] MEDS: DIVALPROEX SODIUM 250 MG DR TABLET PO SCH ×2 (08:00→17:26)
[2017-03-26] MEDS: RisperiDONE 2 MG TABLET PO SCH ×2 (08:00→17:27)
[2017-03-26] MEDS: PALIPERIDONE 6 MG ER TABLET PO SCH ×2 (08:01→17:27)
[2017-03-26 08:43] VITALS: BP 108/72
[2017-03-26] MEDS: NICOTINE 21 MG/24 HOUR PATCH TD SCH (09:00)
[2017-03-26 16:00] VITALS: BP 128/78
[2017-03-26] MEDS: ZOLPIDEM TARTRATE 10 MG TABLET PO PRN (20:32)
[2017-03-26] MEDS: TraZODone HCL 100 MG TABLET PO SCH (20:32)
[2017-03-27 01:05] VITALS: BP 125/85
[2017-03-27] MEDS: LEVOTHYROXINE SODIUM 75 MCG TABLET PO SCH (07:12)
[2017-03-27] MEDS: PANTOPRAZOLE SODIUM 40 MG DR TABLET PO SCH (07:12)
[2017-03-27] MEDS: BENZTROPINE MESYLATE 1 MG TABLET PO SCH ×2 (08:01→16:41)
[2017-03-27] MEDS: RisperiDONE 2 MG TABLET PO SCH ×2 (08:01→16:41)
[2017-03-27] MEDS: PALIPERIDONE 6 MG ER TABLET PO SCH ×2 (08:02→16:41)
[2017-03-27] MEDS: DOCUSATE SODIUM 100 MG CAPSULE PO SCH ×2 (08:02→16:41)
[2017-03-27] MEDS: DIVALPROEX SODIUM 250 MG DR TABLET PO SCH ×2 (08:02→16:41)
[2017-03-27 08:14] VITALS: BP 113/64
[2017-03-27] MEDS: NICOTINE 21 MG/24 HOUR PATCH TD SCH (09:00)
[2017-03-27 16:46] VITALS: BP 102/67
[2017-03-27] MEDS: GuaiFENesin/D-METHORPHAN [SUGAR-FREE] 200-20MG/10 ML SYRUP UDCUP PO PRN (19:29)
[2017-03-27] MEDS: TraZODone HCL 100 MG TABLET PO SCH (20:08)
[2017-03-28] MEDS: PANTOPRAZOLE SODIUM 40 MG DR TABLET PO SCH (07:00)
[2017-03-28] MEDS: LEVOTHYROXINE SODIUM 75 MCG TABLET PO SCH (07:00)
[2017-03-28] MEDS: DIVALPROEX SODIUM 250 MG DR TABLET PO SCH ×2 (07:54→16:17)
[2017-03-28] MEDS: BENZTROPINE MESYLATE 1 MG TABLET PO SCH ×2 (07:55→16:17)
[2017-03-28] MEDS: RisperiDONE 2 MG TABLET PO SCH ×2 (07:55→16:17)
[2017-03-28] MEDS: DOCUSATE SODIUM 100 MG CAPSULE PO SCH ×2 (07:55→16:17)
[2017-03-28] MEDS: PALIPERIDONE 6 MG ER TABLET PO SCH ×2 (07:55→16:17)
[2017-03-28 08:48] VITALS: BP 124/100
[2017-03-28] MEDS: NICOTINE 21 MG/24 HOUR PATCH TD SCH (09:00)
[2017-03-28 16:00] VITALS: BP 130/77
[2017-03-28] MEDS: LORazepam 2 MG TABLET PO PRN (16:17)
[2017-03-28] MEDS: TraZODone HCL 100 MG TABLET PO SCH (20:01)
[2017-03-28] MEDS: ZOLPIDEM TARTRATE 10 MG TABLET PO PRN (20:01)
[2017-03-29] MEDS: PANTOPRAZOLE SODIUM 40 MG DR TABLET PO SCH (06:20)
[2017-03-29] MEDS: LEVOTHYROXINE SODIUM 75 MCG TABLET PO SCH (06:20)
[2017-03-29 08:27] VITALS: BP 101/68
[2017-03-29] MEDS: NICOTINE 21 MG/24 HOUR PATCH TD SCH (09:00)
[2017-03-29] MEDS: DIVALPROEX SODIUM 250 MG DR TABLET PO SCH ×2 (09:17→16:37)
[2017-03-29] MEDS: BENZTROPINE MESYLATE 1 MG TABLET PO SCH ×2 (09:18→16:36)
[2017-03-29] MEDS: RisperiDONE 2 MG TABLET PO SCH ×2 (09:18→16:37)
[2017-03-29] MEDS: LORazepam 2 MG TABLET PO PRN ×2 (09:19→14:02)
[2017-03-29] MEDS: DOCUSATE SODIUM 100 MG CAPSULE PO SCH ×2 (09:19→16:37)
[2017-03-29] MEDS: HALOPERIDOL 5 MG TABLET PO PRN ×2 (09:19→14:02)
[2017-03-29] MEDS: PALIPERIDONE 6 MG ER TABLET PO SCH ×2 (09:19→16:37)
[2017-03-29 19:55] VITALS: BP 112/70
[2017-03-29] MEDS: TraZODone HCL 100 MG TABLET PO SCH (21:21)
[2017-03-30] MEDS: PANTOPRAZOLE SODIUM 40 MG DR TABLET PO SCH (06:59)
[2017-03-30] MEDS: LEVOTHYROXINE SODIUM 75 MCG TABLET PO SCH (06:59)
[2017-03-30 08:11] VITALS: BP 94/68
[2017-03-30] MEDS: DOCUSATE SODIUM 100 MG CAPSULE PO SCH ×2 (08:21→16:56)
[2017-03-30] MEDS: DIVALPROEX SODIUM 250 MG DR TABLET PO SCH ×2 (08:21→16:55)
[2017-03-30] MEDS: RisperiDONE 2 MG TABLET PO SCH ×2 (08:21→16:56)
[2017-03-30] MEDS: BENZTROPINE MESYLATE 1 MG TABLET PO SCH ×2 (08:21→16:56)
[2017-03-30] MEDS: HALOPERIDOL 5 MG TABLET PO PRN ×3 (08:22→18:20)
[2017-03-30] MEDS: LORazepam 2 MG TABLET PO PRN ×3 (08:22→18:20)
[2017-03-30] MEDS: PALIPERIDONE 6 MG ER TABLET PO SCH ×2 (08:23→16:56)
[2017-03-30] MEDS: NICOTINE 21 MG/24 HOUR PATCH TD SCH (09:00)
[2017-03-30 17:00] VITALS: BP 115/70
[2017-03-30] MEDS: TraZODone HCL 100 MG TABLET PO SCH (20:09)
[2017-03-30] MEDS: ZOLPIDEM TARTRATE 10 MG TABLET PO PRN (22:10)
[2017-03-31 05:19] VITALS: BP 112/69
[2017-03-31] MEDS: LORazepam 2 MG TABLET PO PRN ×2 (05:25→12:43)
[2017-03-31] MEDS: HALOPERIDOL 5 MG TABLET PO PRN ×2 (05:26→12:43)
[2017-03-31] MEDS: LEVOTHYROXINE SODIUM 75 MCG TABLET PO SCH (06:49)
[2017-03-31] MEDS: PANTOPRAZOLE SODIUM 40 MG DR TABLET PO SCH (06:49)
[2017-03-31] MEDS: NICOTINE 21 MG/24 HOUR PATCH TD SCH (09:00)
[2017-03-31] MEDS: DOCUSATE SODIUM 100 MG CAPSULE PO SCH ×2 (09:00→16:37)
[2017-03-31] MEDS: PALIPERIDONE 6 MG ER TABLET PO SCH ×2 (09:38→16:36)
[2017-03-31] MEDS: DIVALPROEX SODIUM 250 MG DR TABLET PO SCH ×2 (09:38→16:36)
[2017-03-31] MEDS: BENZTROPINE MESYLATE 1 MG TABLET PO SCH ×2 (09:39→16:36)
[2017-03-31] MEDS: RisperiDONE 2 MG TABLET PO SCH ×2 (09:39→16:37)
[2017-03-31 11:30] VITALS: BP 128/56
[2017-03-31 18:48] VITALS: BP 120/62
[2017-03-31] MEDS: TraZODone HCL 100 MG TABLET PO SCH (20:37)
[2017-03-31] MEDS: ZOLPIDEM TARTRATE 10 MG TABLET PO PRN (21:52)
[2017-04-01] MEDS: PANTOPRAZOLE SODIUM 40 MG DR TABLET PO SCH (06:37)
[2017-04-01] MEDS: LEVOTHYROXINE SODIUM 75 MCG TABLET PO SCH (06:37)
[2017-04-01] MEDS: NICOTINE 21 MG/24 HOUR PATCH TD SCH (09:00)
[2017-04-01] MEDS: LORazepam 2 MG TABLET PO PRN ×3 (09:01→17:42)
[2017-04-01] MEDS: DOCUSATE SODIUM 100 MG CAPSULE PO SCH ×2 (09:01→17:42)
[2017-04-01] MEDS: RisperiDONE 2 MG TABLET PO SCH ×2 (09:01→17:42)
[2017-04-01] MEDS: BENZTROPINE MESYLATE 1 MG TABLET PO SCH ×2 (09:01→17:42)
[2017-04-01] MEDS: HALOPERIDOL 5 MG TABLET PO PRN ×2 (09:01→13:19)
[2017-04-01] MEDS: PALIPERIDONE 6 MG ER TABLET PO SCH ×2 (09:01→17:43)
[2017-04-01] MEDS: DIVALPROEX SODIUM 250 MG DR TABLET PO SCH ×2 (09:02→17:42)
[2017-04-01] MEDS: GuaiFENesin/D-METHORPHAN [SUGAR-FREE] 200-20MG/10 ML SYRUP UDCUP PO PRN (09:09)
[2017-04-01] MEDS: ACETAMINOPHEN 325 MG TABLET PO PRN (09:09)
[2017-04-01] MEDS: TraZODone HCL 100 MG TABLET PO SCH (20:07)
[2017-04-01] MEDS: ZOLPIDEM TARTRATE 10 MG TABLET PO PRN (20:07)
[2017-04-02] MEDS: LEVOTHYROXINE SODIUM 75 MCG TABLET PO SCH (06:32)
[2017-04-02] MEDS: PANTOPRAZOLE SODIUM 40 MG DR TABLET PO SCH (06:32)
[2017-04-02 08:00] VITALS: BP 110/67
[2017-04-02] MEDS: NICOTINE 21 MG/24 HOUR PATCH TD SCH (09:00)
[2017-04-02] MEDS: BENZTROPINE MESYLATE 1 MG TABLET PO SCH ×2 (09:21→17:30)
[2017-04-02] MEDS: DOCUSATE SODIUM 100 MG CAPSULE PO SCH ×2 (09:21→17:30)
[2017-04-02] MEDS: PALIPERIDONE 6 MG ER TABLET PO SCH ×2 (09:21→17:29)
[2017-04-02] MEDS: LORazepam 2 MG TABLET PO PRN ×2 (09:21→13:36)
[2017-04-02] MEDS: RisperiDONE 2 MG TABLET PO SCH ×2 (09:21→17:30)
[2017-04-02] MEDS: DIVALPROEX SODIUM 250 MG DR TABLET PO SCH ×2 (09:21→17:30)
[2017-04-02] MEDS: HALOPERIDOL 5 MG TABLET PO PRN ×2 (09:21→13:36)
[2017-04-02] MEDS: TraZODone HCL 100 MG TABLET PO SCH (20:01)
[2017-04-02] MEDS: ZOLPIDEM TARTRATE 10 MG TABLET PO PRN (20:02)
[2017-04-03] MEDS: LORazepam 2 MG TABLET PO PRN ×2 (05:55→18:30)
[2017-04-03] MEDS: LEVOTHYROXINE SODIUM 75 MCG TABLET PO SCH (06:51)
[2017-04-03] MEDS: PANTOPRAZOLE SODIUM 40 MG DR TABLET PO SCH (06:51)
[2017-04-03] MEDS: DOCUSATE SODIUM 100 MG CAPSULE PO SCH ×2 (08:58→16:06)
[2017-04-03] MEDS: BENZTROPINE MESYLATE 1 MG TABLET PO SCH ×2 (08:58→16:06)
[2017-04-03] MEDS: PALIPERIDONE 6 MG ER TABLET PO SCH ×2 (08:58→16:05)
[2017-04-03] MEDS: DIVALPROEX SODIUM 250 MG DR TABLET PO SCH ×2 (08:58→16:05)
[2017-04-03] MEDS: RisperiDONE 2 MG TABLET PO SCH ×2 (08:58→16:06)
[2017-04-03] MEDS: NICOTINE 21 MG/24 HOUR PATCH TD SCH (09:00)
[2017-04-03 09:50] VITALS: BP 110/65
[2017-04-03] MEDS: BISACODYL 5 MG EC TABLET PO PRN (11:29)
[2017-04-03 16:12] VITALS: BP 121/70
[2017-04-03] MEDS: HALOPERIDOL 5 MG TABLET PO PRN (18:30)
[2017-04-03] MEDS: TraZODone HCL 100 MG TABLET PO SCH (20:19)
[2017-04-03] MEDS: ZOLPIDEM TARTRATE 10 MG TABLET PO PRN (21:51)
[2017-04-04] MEDS: LORazepam 2 MG TABLET PO PRN ×2 (03:23→13:33)
[2017-04-04] MEDS: HALOPERIDOL 5 MG TABLET PO PRN ×2 (03:23→13:33)
[2017-04-04] MEDS: PANTOPRAZOLE SODIUM 40 MG DR TABLET PO SCH (06:50)
[2017-04-04] MEDS: LEVOTHYROXINE SODIUM 75 MCG TABLET PO SCH (06:50)
[2017-04-04] MEDS: NICOTINE 21 MG/24 HOUR PATCH TD SCH (09:00)
[2017-04-04] MEDS: DIVALPROEX SODIUM 250 MG DR TABLET PO SCH ×2 (09:13→16:17)
[2017-04-04] MEDS: BENZTROPINE MESYLATE 1 MG TABLET PO SCH ×2 (09:13→16:16)
[2017-04-04] MEDS: PALIPERIDONE 6 MG ER TABLET PO SCH ×2 (09:13→16:16)
[2017-04-04] MEDS: DOCUSATE SODIUM 100 MG CAPSULE PO SCH ×2 (09:13→16:16)
[2017-04-04] MEDS: RisperiDONE 2 MG TABLET PO SCH ×2 (09:13→16:16)
[2017-04-04] MEDS: PALIPERIDONE PALMITATE 234 MG/1.5 ML SYRINGE IM SCH (10:26)
[2017-04-04] MEDS: GuaiFENesin/D-METHORPHAN [SUGAR-FREE] 200-20MG/10 ML SYRUP UDCUP PO PRN (13:06)
[2017-04-04] MEDS: ACETAMINOPHEN 325 MG TABLET PO PRN (13:06)
[2017-04-04 16:46] VITALS: BP 136/90
[2017-04-04] MEDS: TraZODone HCL 100 MG TABLET PO SCH (20:27)
[2017-04-05] MEDS: LORazepam 2 MG TABLET PO PRN ×3 (03:10→16:52)
[2017-04-05] MEDS: HALOPERIDOL 5 MG TABLET PO PRN ×3 (03:58→16:52)
[2017-04-05] MEDS: LEVOTHYROXINE SODIUM 75 MCG TABLET PO SCH (06:58)
[2017-04-05] MEDS: PANTOPRAZOLE SODIUM 40 MG DR TABLET PO SCH (06:58)
[2017-04-05] MEDS: NICOTINE 21 MG/24 HOUR PATCH TD SCH (09:00)
[2017-04-05] MEDS: DIVALPROEX SODIUM 250 MG DR TABLET PO SCH ×2 (10:29→16:02)
[2017-04-05] MEDS: BENZTROPINE MESYLATE 1 MG TABLET PO SCH ×2 (10:29→16:02)
[2017-04-05] MEDS: PALIPERIDONE 6 MG ER TABLET PO SCH ×2 (10:30→16:01)
[2017-04-05] MEDS: DOCUSATE SODIUM 100 MG CAPSULE PO SCH ×2 (10:30→16:02)
[2017-04-05] MEDS: RisperiDONE 2 MG TABLET PO SCH ×2 (10:30→16:02)
[2017-04-05 17:10] VITALS: BP 133/83
[2017-04-05] MEDS: TraZODone HCL 100 MG TABLET PO SCH (20:05)
[2017-04-05] MEDS: ZOLPIDEM TARTRATE 10 MG TABLET PO PRN (21:08)
[2017-04-06] MEDS: LORazepam 2 MG TABLET PO PRN ×2 (05:46→12:51)
[2017-04-06] MEDS: HALOPERIDOL 5 MG TABLET PO PRN (05:47)
[2017-04-06] MEDS: LEVOTHYROXINE SODIUM 75 MCG TABLET PO SCH (06:41)
[2017-04-06] MEDS: PANTOPRAZOLE SODIUM 40 MG DR TABLET PO SCH (06:42)
[2017-04-06] MEDS: NICOTINE 21 MG/24 HOUR PATCH TD SCH (09:00)
[2017-04-06] MEDS: DIVALPROEX SODIUM 250 MG DR TABLET PO SCH ×2 (10:10→16:17)
[2017-04-06] MEDS: RisperiDONE 2 MG TABLET PO SCH ×2 (10:11→16:18)
[2017-04-06] MEDS: BENZTROPINE MESYLATE 1 MG TABLET PO SCH ×2 (10:11→16:18)
[2017-04-06] MEDS: DOCUSATE SODIUM 100 MG CAPSULE PO SCH ×2 (10:11→16:18)
[2017-04-06] MEDS: PALIPERIDONE 6 MG ER TABLET PO SCH ×2 (10:11→16:18)
[2017-04-06 11:00] VITALS: BP 102/75
[2017-04-06] MEDS: DiphenhydrAMINE HCL 25 MG CAPSULE PO SCH ×2 (13:42→16:18)
[2017-04-06 16:37] VITALS: BP 104/73
[2017-04-06] MEDS: TraZODone HCL 100 MG TABLET PO SCH (20:12)
[2017-04-07] MEDS: HALOPERIDOL 5 MG TABLET PO PRN ×2 (03:25→20:05)
[2017-04-07] MEDS: LORazepam 2 MG TABLET PO PRN ×3 (03:25→17:15)
[2017-04-07] MEDS: GuaiFENesin/D-METHORPHAN [SUGAR-FREE] 200-20MG/10 ML SYRUP UDCUP PO PRN (03:28)
[2017-04-07] MEDS: PANTOPRAZOLE SODIUM 40 MG DR TABLET PO SCH (06:54)
[2017-04-07] MEDS: LEVOTHYROXINE SODIUM 75 MCG TABLET PO SCH (06:54)
[2017-04-07] MEDS: BENZTROPINE MESYLATE 1 MG TABLET PO SCH ×2 (08:40→16:59)
[2017-04-07] MEDS: PALIPERIDONE 6 MG ER TABLET PO SCH ×2 (08:41→16:59)
[2017-04-07] MEDS: DiphenhydrAMINE HCL 25 MG CAPSULE PO SCH ×2 (08:41→16:59)
[2017-04-07] MEDS: DOCUSATE SODIUM 100 MG CAPSULE PO SCH ×2 (08:41→16:59)
[2017-04-07] MEDS: RisperiDONE 2 MG TABLET PO SCH ×2 (08:41→16:59)
[2017-04-07] MEDS: DIVALPROEX SODIUM 250 MG DR TABLET PO SCH ×2 (08:42→16:59)
[2017-04-07] MEDS: NICOTINE 21 MG/24 HOUR PATCH TD SCH ×2 (08:43→09:00)
[2017-04-07 16:15] VITALS: BP 103/72
[2017-04-07] MEDS: ZOLPIDEM TARTRATE 10 MG TABLET PO PRN (20:05)
[2017-04-07] MEDS: TraZODone HCL 100 MG TABLET PO SCH (20:05)
[2017-04-08] MEDS: PANTOPRAZOLE SODIUM 40 MG DR TABLET PO SCH (06:43)
[2017-04-08] MEDS: LEVOTHYROXINE SODIUM 75 MCG TABLET PO SCH (06:43)
[2017-04-08] MEDS: BENZTROPINE MESYLATE 1 MG TABLET PO SCH ×2 (08:07→16:23)
[2017-04-08] MEDS: LORazepam 2 MG TABLET PO PRN ×2 (08:07→12:07)
[2017-04-08] MEDS: RisperiDONE 2 MG TABLET PO SCH ×2 (08:07→16:23)
[2017-04-08] MEDS: DiphenhydrAMINE HCL 25 MG CAPSULE PO SCH ×2 (08:07→16:23)
[2017-04-08] MEDS: HALOPERIDOL 5 MG TABLET PO PRN ×2 (08:07→12:07)
[2017-04-08] MEDS: NICOTINE 21 MG/24 HOUR PATCH TD SCH (08:08)
[2017-04-08] MEDS: DIVALPROEX SODIUM 250 MG DR TABLET PO SCH ×2 (08:08→16:23)
[2017-04-08] MEDS: PALIPERIDONE 6 MG ER TABLET PO SCH ×2 (08:08→16:23)
[2017-04-08] MEDS: DOCUSATE SODIUM 100 MG CAPSULE PO SCH ×2 (08:08→16:23)
[2017-04-08 09:02] VITALS: BP 118/72
[2017-04-08 17:28] VITALS: BP 98/61
[2017-04-08] MEDS: TraZODone HCL 100 MG TABLET PO SCH (20:18)
[2017-04-09] MEDS: LEVOTHYROXINE SODIUM 75 MCG TABLET PO SCH (06:55)
[2017-04-09] MEDS: PANTOPRAZOLE SODIUM 40 MG DR TABLET PO SCH (06:55)
[2017-04-09] MEDS: HALOPERIDOL 5 MG TABLET PO PRN ×2 (08:58→13:15)
[2017-04-09] MEDS: BENZTROPINE MESYLATE 1 MG TABLET PO SCH ×2 (08:58→16:56)
[2017-04-09] MEDS: RisperiDONE 2 MG TABLET PO SCH ×2 (08:58→16:56)
[2017-04-09] MEDS: LORazepam 2 MG TABLET PO PRN ×2 (08:58→13:15)
[2017-04-09] MEDS: DIVALPROEX SODIUM 250 MG DR TABLET PO SCH ×2 (09:00→16:56)
[2017-04-09] MEDS: PALIPERIDONE 6 MG ER TABLET PO SCH ×2 (09:00→16:56)
[2017-04-09] MEDS: DOCUSATE SODIUM 100 MG CAPSULE PO SCH ×2 (09:00→16:56)
[2017-04-09] MEDS: DiphenhydrAMINE HCL 25 MG CAPSULE PO SCH ×2 (09:00→16:56)
[2017-04-09] MEDS: NICOTINE 21 MG/24 HOUR PATCH TD SCH (09:02)
[2017-04-09] MEDS: TraZODone HCL 100 MG TABLET PO SCH (20:06)
[2017-04-09] MEDS: ZOLPIDEM TARTRATE 10 MG TABLET PO PRN (20:40)
[2017-04-10] MEDS: LEVOTHYROXINE SODIUM 75 MCG TABLET PO SCH (06:52)
[2017-04-10] MEDS: PANTOPRAZOLE SODIUM 40 MG DR TABLET PO SCH (06:52)
[2017-04-10] MEDS: DiphenhydrAMINE HCL 25 MG CAPSULE PO SCH ×2 (08:27→17:02)
[2017-04-10] MEDS: DOCUSATE SODIUM 100 MG CAPSULE PO SCH ×2 (08:27→17:02)
[2017-04-10] MEDS: DIVALPROEX SODIUM 250 MG DR TABLET PO SCH ×2 (08:27→17:02)
[2017-04-10] MEDS: PALIPERIDONE 6 MG ER TABLET PO SCH ×2 (08:27→18:05)
[2017-04-10] MEDS: BENZTROPINE MESYLATE 1 MG TABLET PO SCH ×2 (08:27→17:02)
[2017-04-10] MEDS: RisperiDONE 2 MG TABLET PO SCH ×2 (08:27→17:02)
[2017-04-10] MEDS: NICOTINE 21 MG/24 HOUR PATCH TD SCH (08:28)
[2017-04-10] MEDS: HALOPERIDOL 5 MG TABLET PO PRN (14:00)
[2017-04-10] MEDS: LORazepam 2 MG TABLET PO PRN (14:01)
[2017-04-10] MEDS: GuaiFENesin/D-METHORPHAN [SUGAR-FREE] 200-20MG/10 ML SYRUP UDCUP PO PRN (17:07)
[2017-04-10 18:58] VITALS: BP 96/58
[2017-04-10] MEDS: TraZODone HCL 100 MG TABLET PO SCH (21:08)
[2017-04-11] MEDS: ZOLPIDEM TARTRATE 10 MG TABLET PO PRN ×2 (02:03→21:30)
[2017-04-11 02:05] VITALS: BP 115/64
[2017-04-11] MEDS: LEVOTHYROXINE SODIUM 75 MCG TABLET PO SCH (06:53)
[2017-04-11] MEDS: PANTOPRAZOLE SODIUM 40 MG DR TABLET PO SCH (06:53)
[2017-04-11] MEDS: PALIPERIDONE 6 MG ER TABLET PO SCH ×2 (08:47→17:30)
[2017-04-11] MEDS: DIVALPROEX SODIUM 250 MG DR TABLET PO SCH ×2 (08:48→17:29)
[2017-04-11] MEDS: BENZTROPINE MESYLATE 1 MG TABLET PO SCH ×2 (08:48→17:30)
[2017-04-11] MEDS: RisperiDONE 2 MG TABLET PO SCH ×2 (08:48→17:30)
[2017-04-11] MEDS: DiphenhydrAMINE HCL 25 MG CAPSULE PO SCH ×2 (08:48→17:29)
[2017-04-11] MEDS: NICOTINE 21 MG/24 HOUR PATCH TD SCH ×2 (08:51→09:31)
[2017-04-11] MEDS: DOCUSATE SODIUM 100 MG CAPSULE PO SCH ×2 (08:51→17:30)
[2017-04-11] MEDS: HALOPERIDOL 5 MG TABLET PO PRN (09:55)
[2017-04-11] MEDS: LORazepam 2 MG TABLET PO PRN ×2 (09:55→17:30)
[2017-04-11] MEDS: TraZODone HCL 100 MG TABLET PO SCH (20:49)
[2017-04-12] MEDS: PANTOPRAZOLE SODIUM 40 MG DR TABLET PO SCH (06:41)
[2017-04-12] MEDS: LEVOTHYROXINE SODIUM 75 MCG TABLET PO SCH (06:41)
[2017-04-12 08:44] VITALS: BP 96/62
[2017-04-12] MEDS: DOCUSATE SODIUM 100 MG CAPSULE PO SCH ×2 (09:00→18:21)
[2017-04-12] MEDS: DiphenhydrAMINE HCL 25 MG CAPSULE PO SCH ×2 (09:00→18:21)
[2017-04-12] MEDS: RisperiDONE 2 MG TABLET PO SCH ×2 (09:00→18:21)
[2017-04-12] MEDS: BENZTROPINE MESYLATE 1 MG TABLET PO SCH ×2 (09:00→18:21)
[2017-04-12] MEDS: DIVALPROEX SODIUM 250 MG DR TABLET PO SCH ×2 (09:02→18:21)
[2017-04-12] MEDS: PALIPERIDONE 6 MG ER TABLET PO SCH ×2 (09:02→18:21)
[2017-04-12] MEDS: NICOTINE 21 MG/24 HOUR PATCH TD SCH (09:05)
[2017-04-12] MEDS: LORazepam 2 MG TABLET PO PRN ×2 (14:00→19:45)
[2017-04-12] MEDS: HALOPERIDOL 5 MG TABLET PO PRN ×2 (15:50→19:45)
[2017-04-12] MEDS: TraZODone HCL 100 MG TABLET PO SCH (20:19)
[2017-04-12] MEDS: GuaiFENesin/D-METHORPHAN [SUGAR-FREE] 200-20MG/10 ML SYRUP UDCUP PO PRN (20:43)
[2017-04-13] MEDS: LEVOTHYROXINE SODIUM 75 MCG TABLET PO SCH (06:49)
[2017-04-13] MEDS: PANTOPRAZOLE SODIUM 40 MG DR TABLET PO SCH (06:49)
[2017-04-13] MEDS: BENZTROPINE MESYLATE 1 MG TABLET PO SCH ×2 (09:07→16:39)
[2017-04-13] MEDS: RisperiDONE 2 MG TABLET PO SCH ×2 (09:07→16:38)
[2017-04-13] MEDS: DIVALPROEX SODIUM 250 MG DR TABLET PO SCH ×2 (09:07→16:38)
[2017-04-13] MEDS: PALIPERIDONE 6 MG ER TABLET PO SCH ×2 (09:07→16:39)
[2017-04-13] MEDS: DiphenhydrAMINE HCL 25 MG CAPSULE PO SCH ×2 (09:08→16:38)
[2017-04-13] MEDS: NICOTINE 21 MG/24 HOUR PATCH TD SCH (09:08)
[2017-04-13] MEDS: DOCUSATE SODIUM 100 MG CAPSULE PO SCH ×2 (09:08→16:39)
[2017-04-13] MEDS: LORazepam 2 MG TABLET PO PRN ×2 (12:45→19:09)
[2017-04-13] MEDS: HALOPERIDOL 5 MG TABLET PO PRN ×2 (14:20→19:09)
[2017-04-13 16:57] VITALS: BP 129/90
[2017-04-13] MEDS: TraZODone HCL 100 MG TABLET PO SCH (20:48)
[2017-04-14] MEDS: LEVOTHYROXINE SODIUM 75 MCG TABLET PO SCH (07:09)
[2017-04-14] MEDS: PANTOPRAZOLE SODIUM 40 MG DR TABLET PO SCH ×2 (07:09→09:47)
[2017-04-14] MEDS: HALOPERIDOL 5 MG TABLET PO PRN ×2 (09:47→14:23)
[2017-04-14] MEDS: DIVALPROEX SODIUM 250 MG DR TABLET PO SCH ×2 (09:47→16:37)
[2017-04-14] MEDS: DOCUSATE SODIUM 100 MG CAPSULE PO SCH ×2 (09:47→16:37)
[2017-04-14] MEDS: PALIPERIDONE 6 MG ER TABLET PO SCH ×2 (09:47→16:38)
[2017-04-14] MEDS: RisperiDONE 2 MG TABLET PO SCH (09:47)
[2017-04-14] MEDS: BENZTROPINE MESYLATE 1 MG TABLET PO SCH ×2 (09:47→16:37)
[2017-04-14] MEDS: LORazepam 2 MG TABLET PO PRN ×2 (09:47→14:23)
[2017-04-14] MEDS: DiphenhydrAMINE HCL 25 MG CAPSULE PO SCH ×2 (09:47→16:37)
[2017-04-14] MEDS: NICOTINE 21 MG/24 HOUR PATCH TD SCH (09:49)
[2017-04-14 09:53] VITALS: BP 126/90
[2017-04-14] MEDS: RisperiDONE 3 MG TABLET PO SCH (16:37)
[2017-04-14 17:33] VITALS: BP 110/50
[2017-04-14 19:35] VITALS: BP 112/68
[2017-04-14] MEDS: TraZODone HCL 100 MG TABLET PO SCH (22:22)
[2017-04-15] MEDS: LEVOTHYROXINE SODIUM 75 MCG TABLET PO SCH (06:49)
[2017-04-15] MEDS: DIVALPROEX SODIUM 250 MG DR TABLET PO SCH ×2 (08:15→17:18)
[2017-04-15] MEDS: DiphenhydrAMINE HCL 25 MG CAPSULE PO SCH ×2 (08:16→17:18)
[2017-04-15] MEDS: HALOPERIDOL 5 MG TABLET PO PRN ×2 (08:16→12:27)
[2017-04-15] MEDS: LORazepam 2 MG TABLET PO PRN ×2 (08:16→12:28)
[2017-04-15] MEDS: PALIPERIDONE 6 MG ER TABLET PO SCH ×2 (08:16→17:19)
[2017-04-15] MEDS: BENZTROPINE MESYLATE 1 MG TABLET PO SCH ×2 (08:16→17:18)
[2017-04-15] MEDS: DOCUSATE SODIUM 100 MG CAPSULE PO SCH ×2 (08:16→17:18)
[2017-04-15] MEDS: RisperiDONE 3 MG TABLET PO SCH ×2 (08:16→17:18)
[2017-04-15] MEDS: NICOTINE 21 MG/24 HOUR PATCH TD SCH (08:22)
[2017-04-15 16:29] VITALS: BP 118/84
[2017-04-15] MEDS: TraZODone HCL 100 MG TABLET PO SCH (20:15)
[2017-04-15] MEDS: ZOLPIDEM TARTRATE 10 MG TABLET PO PRN (20:15)
[2017-04-16] MEDS: LEVOTHYROXINE SODIUM 75 MCG TABLET PO SCH (06:54)
[2017-04-16] MEDS: PANTOPRAZOLE SODIUM 40 MG DR TABLET PO SCH (06:54)
[2017-04-16] MEDS: LORazepam 2 MG TABLET PO PRN ×2 (08:20→12:52)
[2017-04-16] MEDS: DOCUSATE SODIUM 100 MG CAPSULE PO SCH ×2 (08:20→17:43)
[2017-04-16] MEDS: DiphenhydrAMINE HCL 25 MG CAPSULE PO SCH ×2 (08:20→17:42)
[2017-04-16] MEDS: HALOPERIDOL 5 MG TABLET PO PRN ×2 (08:20→12:52)
[2017-04-16] MEDS: RisperiDONE 3 MG TABLET PO SCH ×2 (08:20→17:44)
[2017-04-16] MEDS: PALIPERIDONE 6 MG ER TABLET PO SCH ×2 (08:21→17:43)
[2017-04-16] MEDS: DIVALPROEX SODIUM 250 MG DR TABLET PO SCH ×2 (08:21→17:43)
[2017-04-16] MEDS: NICOTINE 21 MG/24 HOUR PATCH TD SCH (08:26)
[2017-04-16] MEDS: BENZTROPINE MESYLATE 1 MG TABLET PO SCH ×2 (09:46→17:42)
[2017-04-16 16:00] VITALS: BP 110/68
[2017-04-16] MEDS: TraZODone HCL 100 MG TABLET PO SCH (20:13)
[2017-04-17] MEDS: PANTOPRAZOLE SODIUM 40 MG DR TABLET PO SCH (06:58)
[2017-04-17] MEDS: LEVOTHYROXINE SODIUM 75 MCG TABLET PO SCH (06:58)
[2017-04-17] MEDS: DOCUSATE SODIUM 100 MG CAPSULE PO SCH ×2 (10:26→16:36)
[2017-04-17] MEDS: PALIPERIDONE 6 MG ER TABLET PO SCH ×2 (10:26→16:35)
[2017-04-17] MEDS: DiphenhydrAMINE HCL 25 MG CAPSULE PO SCH ×2 (10:26→16:36)
[2017-04-17] MEDS: DIVALPROEX SODIUM 250 MG DR TABLET PO SCH ×2 (10:26→16:36)
[2017-04-17] MEDS: LORazepam 2 MG TABLET PO PRN ×2 (10:26→21:22)
[2017-04-17] MEDS: HALOPERIDOL 5 MG TABLET PO PRN ×2 (10:26→21:21)
[2017-04-17] MEDS: RisperiDONE 3 MG TABLET PO SCH ×2 (10:26→16:36)
[2017-04-17] MEDS: NICOTINE 21 MG/24 HOUR PATCH TD SCH (10:28)
[2017-04-17] MEDS: BENZTROPINE MESYLATE 1 MG TABLET PO SCH ×2 (10:29→16:35)
[2017-04-17 16:37] VITALS: BP 116/67
[2017-04-17] MEDS: TraZODone HCL 100 MG TABLET PO SCH (21:21)
[2017-04-18] MEDS: LEVOTHYROXINE SODIUM 75 MCG TABLET PO SCH (06:59)
[2017-04-18] MEDS: PANTOPRAZOLE SODIUM 40 MG DR TABLET PO SCH (06:59)
[2017-04-18] MEDS: HALOPERIDOL 5 MG TABLET PO PRN ×2 (09:03→13:45)
[2017-04-18] MEDS: LORazepam 2 MG TABLET PO PRN ×3 (09:03→17:45)
[2017-04-18] MEDS: DOCUSATE SODIUM 100 MG CAPSULE PO SCH ×2 (09:03→17:46)
[2017-04-18] MEDS: DIVALPROEX SODIUM 250 MG DR TABLET PO SCH ×2 (09:03→17:46)
[2017-04-18] MEDS: DiphenhydrAMINE HCL 25 MG CAPSULE PO SCH ×2 (09:04→17:46)
[2017-04-18] MEDS: PALIPERIDONE 6 MG ER TABLET PO SCH ×2 (09:04→17:46)
[2017-04-18] MEDS: RisperiDONE 3 MG TABLET PO SCH ×2 (09:04→17:45)
[2017-04-18] MEDS: NICOTINE 21 MG/24 HOUR PATCH TD SCH (09:09)
[2017-04-18] MEDS: BENZTROPINE MESYLATE 1 MG TABLET PO SCH ×2 (09:30→17:45)
[2017-04-18 17:07] VITALS: BP 116/64
[2017-04-18] MEDS: TraZODone HCL 100 MG TABLET PO SCH (21:17)
[2017-04-19] MEDS: ZOLPIDEM TARTRATE 10 MG TABLET PO PRN ×2 (01:37→20:33)
[2017-04-19] MEDS: LEVOTHYROXINE SODIUM 75 MCG TABLET PO SCH (07:02)
[2017-04-19] MEDS: PANTOPRAZOLE SODIUM 40 MG DR TABLET PO SCH (07:02)
[2017-04-19 08:12] VITALS: BP 113/64
[2017-04-19] MEDS: NICOTINE 21 MG/24 HOUR PATCH TD SCH (09:00)
[2017-04-19] MEDS: DOCUSATE SODIUM 100 MG CAPSULE PO SCH ×2 (09:04→16:29)
[2017-04-19] MEDS: DIVALPROEX SODIUM 250 MG DR TABLET PO SCH ×2 (09:04→16:31)
[2017-04-19] MEDS: DiphenhydrAMINE HCL 25 MG CAPSULE PO SCH ×2 (09:04→16:30)
[2017-04-19] MEDS: HALOPERIDOL 5 MG TABLET PO PRN ×3 (09:04→20:44)
[2017-04-19] MEDS: LORazepam 2 MG TABLET PO PRN ×3 (09:04→20:44)
[2017-04-19] MEDS: BENZTROPINE MESYLATE 1 MG TABLET PO SCH ×2 (09:04→16:30)
[2017-04-19] MEDS: RisperiDONE 3 MG TABLET PO SCH ×2 (09:05→16:30)
[2017-04-19] MEDS: PALIPERIDONE 6 MG ER TABLET PO SCH ×2 (09:05→16:30)
[2017-04-19 17:26] VITALS: BP 109/69
[2017-04-19] MEDS: TraZODone HCL 100 MG TABLET PO SCH (20:33)
[2017-04-20] MEDS: PANTOPRAZOLE SODIUM 40 MG DR TABLET PO SCH (06:51)
[2017-04-20] MEDS: LEVOTHYROXINE SODIUM 75 MCG TABLET PO SCH (06:51)
[2017-04-20 08:19] VITALS: BP 106/66
[2017-04-20] MEDS: DiphenhydrAMINE HCL 25 MG CAPSULE PO SCH ×2 (09:45→16:59)
[2017-04-20] MEDS: LORazepam 2 MG TABLET PO PRN ×2 (09:45→13:46)
[2017-04-20] MEDS: BENZTROPINE MESYLATE 1 MG TABLET PO SCH ×2 (09:45→17:00)
[2017-04-20] MEDS: DIVALPROEX SODIUM 250 MG DR TABLET PO SCH ×2 (09:45→17:00)
[2017-04-20] MEDS: HALOPERIDOL 5 MG TABLET PO PRN ×2 (09:45→13:46)
[2017-04-20] MEDS: PALIPERIDONE 6 MG ER TABLET PO SCH ×2 (09:45→17:00)
[2017-04-20] MEDS: DOCUSATE SODIUM 100 MG CAPSULE PO SCH ×2 (09:45→17:00)
[2017-04-20] MEDS: RisperiDONE 3 MG TABLET PO SCH ×2 (09:46→17:00)
[2017-04-20] MEDS: NICOTINE 21 MG/24 HOUR PATCH TD SCH (09:46)
[2017-04-20 16:00] VITALS: BP 128/86
[2017-04-20] MEDS: TraZODone HCL 100 MG TABLET PO SCH (20:09)
[2017-04-21] MEDS: PANTOPRAZOLE SODIUM 40 MG DR TABLET PO SCH (06:58)
[2017-04-21] MEDS: LEVOTHYROXINE SODIUM 75 MCG TABLET PO SCH (06:58)
[2017-04-21] MEDS: DOCUSATE SODIUM 100 MG CAPSULE PO SCH ×2 (08:05→16:38)
[2017-04-21] MEDS: PALIPERIDONE 6 MG ER TABLET PO SCH ×2 (08:05→16:39)
[2017-04-21] MEDS: DiphenhydrAMINE HCL 25 MG CAPSULE PO SCH ×2 (08:05→16:39)
[2017-04-21] MEDS: BENZTROPINE MESYLATE 1 MG TABLET PO SCH ×2 (08:05→16:42)
[2017-04-21] MEDS: DIVALPROEX SODIUM 250 MG DR TABLET PO SCH ×2 (08:05→16:39)
[2017-04-21] MEDS: NICOTINE 21 MG/24 HOUR PATCH TD SCH (08:06)
[2017-04-21] MEDS: RisperiDONE 3 MG TABLET PO SCH ×2 (08:06→16:39)
[2017-04-21 09:18] VITALS: BP 118/78
[2017-04-21] MEDS: HALOPERIDOL 5 MG TABLET PO PRN (13:18)
[2017-04-21] MEDS: LORazepam 2 MG TABLET PO PRN (13:19)
[2017-04-21 16:00] VITALS: BP 110/76
[2017-04-21] MEDS: TraZODone HCL 100 MG TABLET PO SCH (20:15)
[2017-04-21] MEDS: ZOLPIDEM TARTRATE 10 MG TABLET PO PRN (20:15)
[2017-04-22 01:30] VITALS: BP 102/56
[2017-04-22] MEDS: LORazepam 2 MG TABLET PO PRN ×2 (01:31→09:36)
[2017-04-22] MEDS: HALOPERIDOL 5 MG TABLET PO PRN ×3 (01:31→21:54)
[2017-04-22] MEDS: PANTOPRAZOLE SODIUM 40 MG DR TABLET PO SCH (06:38)
[2017-04-22] MEDS: LEVOTHYROXINE SODIUM 75 MCG TABLET PO SCH (06:39)
[2017-04-22] MEDS: BENZTROPINE MESYLATE 1 MG TABLET PO SCH ×2 (08:22→16:48)
[2017-04-22] MEDS: DOCUSATE SODIUM 100 MG CAPSULE PO SCH ×2 (08:23→16:49)
[2017-04-22] MEDS: DIVALPROEX SODIUM 250 MG DR TABLET PO SCH ×2 (08:23→16:47)
[2017-04-22] MEDS: DiphenhydrAMINE HCL 25 MG CAPSULE PO SCH ×2 (08:23→16:47)
[2017-04-22] MEDS: RisperiDONE 3 MG TABLET PO SCH ×2 (08:23→16:47)
[2017-04-22] MEDS: NICOTINE 21 MG/24 HOUR PATCH TD SCH (08:24)
[2017-04-22] MEDS: PALIPERIDONE 6 MG ER TABLET PO SCH ×2 (08:24→16:47)
[2017-04-22 19:21] VITALS: BP 104/62
[2017-04-22] MEDS: ZOLPIDEM TARTRATE 10 MG TABLET PO PRN (20:41)
[2017-04-22] MEDS: TraZODone HCL 100 MG TABLET PO SCH (21:22)
[2017-04-23] MEDS: LEVOTHYROXINE SODIUM 75 MCG TABLET PO SCH (06:59)
[2017-04-23] MEDS: PANTOPRAZOLE SODIUM 40 MG DR TABLET PO SCH (06:59)
[2017-04-23] MEDS: PALIPERIDONE 6 MG ER TABLET PO SCH ×2 (08:36→17:09)
[2017-04-23] MEDS: RisperiDONE 3 MG TABLET PO SCH ×2 (08:36→17:09)
[2017-04-23] MEDS: DOCUSATE SODIUM 100 MG CAPSULE PO SCH ×2 (08:36→17:09)
[2017-04-23] MEDS: DiphenhydrAMINE HCL 25 MG CAPSULE PO SCH ×2 (08:36→17:09)
[2017-04-23] MEDS: BENZTROPINE MESYLATE 1 MG TABLET PO SCH ×2 (08:36→17:09)
[2017-04-23] MEDS: DIVALPROEX SODIUM 250 MG DR TABLET PO SCH ×2 (08:37→17:10)
[2017-04-23] MEDS: NICOTINE 21 MG/24 HOUR PATCH TD SCH (08:38)
[2017-04-23 10:05] VITALS: BP 149/65
[2017-04-23] MEDS: LORazepam 2 MG TABLET PO PRN ×2 (13:10→17:10)
[2017-04-23] MEDS: HALOPERIDOL 5 MG TABLET PO PRN (13:10)
[2017-04-23 18:00] VITALS: BP 100/62
[2017-04-23] MEDS: TraZODone HCL 100 MG TABLET PO SCH (20:09)
[2017-04-23] MEDS: ZOLPIDEM TARTRATE 10 MG TABLET PO PRN (20:10)
[2017-04-24] MEDS: PANTOPRAZOLE SODIUM 40 MG DR TABLET PO SCH (07:00)
[2017-04-24] MEDS: LEVOTHYROXINE SODIUM 75 MCG TABLET PO SCH (07:00)
[2017-04-24] MEDS: BENZTROPINE MESYLATE 1 MG TABLET PO SCH ×2 (08:25→16:35)
[2017-04-24] MEDS: DiphenhydrAMINE HCL 25 MG CAPSULE PO SCH ×2 (08:25→16:35)
[2017-04-24] MEDS: HALOPERIDOL 5 MG TABLET PO PRN ×2 (08:26→12:55)
[2017-04-24] MEDS: DIVALPROEX SODIUM 250 MG DR TABLET PO SCH ×2 (08:26→16:35)
[2017-04-24] MEDS: LORazepam 2 MG TABLET PO PRN ×2 (08:26→12:55)
[2017-04-24] MEDS: RisperiDONE 3 MG TABLET PO SCH ×2 (08:26→16:35)
[2017-04-24] MEDS: DOCUSATE SODIUM 100 MG CAPSULE PO SCH ×2 (08:26→16:35)
[2017-04-24] MEDS: PALIPERIDONE 6 MG ER TABLET PO SCH ×2 (08:26→16:36)
[2017-04-24] MEDS: NICOTINE 21 MG/24 HOUR PATCH TD SCH (08:27)
[2017-04-24 08:39] VITALS: BP 100/60
[2017-04-24 17:59] VITALS: BP 108/66
[2017-04-24] MEDS: TraZODone HCL 100 MG TABLET PO SCH (20:12)
[2017-04-25] MEDS: PANTOPRAZOLE SODIUM 40 MG DR TABLET PO SCH (06:54)
[2017-04-25] MEDS: LEVOTHYROXINE SODIUM 75 MCG TABLET PO SCH (06:54)
[2017-04-25 08:21] VITALS: BP 106/73
[2017-04-25] MEDS: DiphenhydrAMINE HCL 25 MG CAPSULE PO SCH ×2 (08:50→16:43)
[2017-04-25] MEDS: BENZTROPINE MESYLATE 1 MG TABLET PO SCH ×2 (08:50→16:43)
[2017-04-25] MEDS: RisperiDONE 3 MG TABLET PO SCH ×2 (08:50→16:43)
[2017-04-25] MEDS: DOCUSATE SODIUM 100 MG CAPSULE PO SCH ×2 (08:54→16:43)
[2017-04-25] MEDS: DIVALPROEX SODIUM 250 MG DR TABLET PO SCH ×2 (08:54→16:43)
[2017-04-25] MEDS: NICOTINE 21 MG/24 HOUR PATCH TD SCH (08:55)
[2017-04-25] MEDS: PALIPERIDONE 6 MG ER TABLET PO SCH ×2 (08:55→16:43)
[2017-04-25] MEDS: LORazepam 2 MG TABLET PO PRN (14:04)
[2017-04-25] MEDS: HALOPERIDOL 5 MG TABLET PO PRN (14:04)
[2017-04-25] MEDS: ACETAMINOPHEN 325 MG TABLET PO PRN (14:29)
[2017-04-25 16:00] VITALS: BP 110/77
[2017-04-25] MEDS: TraZODone HCL 100 MG TABLET PO SCH (21:34)
[2017-04-26] MEDS: HALOPERIDOL 5 MG TABLET PO PRN ×2 (03:20→09:46)
[2017-04-26] MEDS: LEVOTHYROXINE SODIUM 75 MCG TABLET PO SCH (06:52)
[2017-04-26] MEDS: PANTOPRAZOLE SODIUM 40 MG DR TABLET PO SCH (06:52)
[2017-04-26] MEDS: NICOTINE 21 MG/24 HOUR PATCH TD SCH (09:06)
[2017-04-26] MEDS: BENZTROPINE MESYLATE 1 MG TABLET PO SCH ×2 (09:06→17:38)
[2017-04-26] MEDS: RisperiDONE 3 MG TABLET PO SCH ×2 (09:07→17:39)
[2017-04-26] MEDS: PALIPERIDONE 6 MG ER TABLET PO SCH ×2 (09:07→17:38)
[2017-04-26] MEDS: DOCUSATE SODIUM 100 MG CAPSULE PO SCH ×2 (09:08→17:39)
[2017-04-26] MEDS: DiphenhydrAMINE HCL 25 MG CAPSULE PO SCH ×2 (09:08→17:38)
[2017-04-26] MEDS: DIVALPROEX SODIUM 250 MG DR TABLET PO SCH ×2 (09:09→17:38)
[2017-04-26] MEDS: LORazepam 2 MG TABLET PO PRN (09:44)
[2017-04-26 10:29] VITALS: BP 111/62
[2017-04-26] MEDS: TraZODone HCL 100 MG TABLET PO SCH (20:41)
[2017-04-27] MEDS: LEVOTHYROXINE SODIUM 75 MCG TABLET PO SCH (06:58)
[2017-04-27] MEDS: PANTOPRAZOLE SODIUM 40 MG DR TABLET PO SCH (06:59)
[2017-04-27] MEDS: BENZTROPINE MESYLATE 1 MG TABLET PO SCH ×2 (08:40→16:49)
[2017-04-27] MEDS: DiphenhydrAMINE HCL 25 MG CAPSULE PO SCH ×2 (08:40→16:47)
[2017-04-27] MEDS: DIVALPROEX SODIUM 250 MG DR TABLET PO SCH ×2 (08:41→16:46)
[2017-04-27] MEDS: DOCUSATE SODIUM 100 MG CAPSULE PO SCH ×2 (08:41→16:47)
[2017-04-27] MEDS: RisperiDONE 3 MG TABLET PO SCH ×2 (08:42→16:47)
[2017-04-27] MEDS: PALIPERIDONE 6 MG ER TABLET PO SCH ×2 (08:42→16:47)
[2017-04-27] MEDS: NICOTINE 21 MG/24 HOUR PATCH TD SCH (08:42)
[2017-04-27 11:35] VITALS: BP 112/84
[2017-04-27] MEDS: HALOPERIDOL 5 MG TABLET PO PRN (13:37)
[2017-04-27] MEDS: LORazepam 2 MG TABLET PO PRN (13:38)
[2017-04-27] MEDS: TraZODone HCL 100 MG TABLET PO SCH (20:40)
[2017-04-28] MEDS: LEVOTHYROXINE SODIUM 75 MCG TABLET PO SCH (07:06)
[2017-04-28] MEDS: PANTOPRAZOLE SODIUM 40 MG DR TABLET PO SCH (07:07)
[2017-04-28 08:00] VITALS: BP 104/70
[2017-04-28] MEDS: NICOTINE 21 MG/24 HOUR PATCH TD SCH (09:00)
[2017-04-28] MEDS: DIVALPROEX SODIUM 250 MG DR TABLET PO SCH ×2 (09:02→16:17)
[2017-04-28] MEDS: DiphenhydrAMINE HCL 25 MG CAPSULE PO SCH ×2 (09:02→16:18)
[2017-04-28] MEDS: BENZTROPINE MESYLATE 1 MG TABLET PO SCH ×2 (09:02→16:18)
[2017-04-28] MEDS: DOCUSATE SODIUM 100 MG CAPSULE PO SCH ×2 (09:02→16:18)
[2017-04-28] MEDS: PALIPERIDONE 6 MG ER TABLET PO SCH ×2 (09:03→16:18)
[2017-04-28] MEDS: RisperiDONE 3 MG TABLET PO SCH ×2 (09:03→16:18)
[2017-04-28] MEDS: LORazepam 2 MG TABLET PO PRN (09:36)
[2017-04-28 09:40] VITALS: BP 104/70
[2017-04-28] MEDS: HALOPERIDOL 5 MG TABLET PO PRN (10:43)
[2017-04-28 16:00] VITALS: BP 120/76
[2017-04-28] MEDS: TraZODone HCL 100 MG TABLET PO SCH (20:13)
[2017-04-28] MEDS: ZOLPIDEM TARTRATE 10 MG TABLET PO PRN (23:52)
[2017-04-29 00:20] VITALS: BP 128/64
[2017-04-29] MEDS: LEVOTHYROXINE SODIUM 75 MCG TABLET PO SCH (06:54)
[2017-04-29] MEDS: PANTOPRAZOLE SODIUM 40 MG DR TABLET PO SCH (06:54)
[2017-04-29 08:19] VITALS: BP 118/72
[2017-04-29] MEDS: DiphenhydrAMINE HCL 25 MG CAPSULE PO SCH ×2 (08:35→16:51)
[2017-04-29] MEDS: BENZTROPINE MESYLATE 1 MG TABLET PO SCH ×2 (08:35→16:51)
[2017-04-29] MEDS: PALIPERIDONE 6 MG ER TABLET PO SCH ×2 (08:35→16:51)
[2017-04-29] MEDS: DOCUSATE SODIUM 100 MG CAPSULE PO SCH ×2 (08:35→16:51)
[2017-04-29] MEDS: DIVALPROEX SODIUM 250 MG DR TABLET PO SCH ×2 (08:35→16:52)
[2017-04-29] MEDS: RisperiDONE 3 MG TABLET PO SCH ×2 (08:35→16:51)
[2017-04-29] MEDS: NICOTINE 21 MG/24 HOUR PATCH TD SCH (09:00)
[2017-04-29] MEDS: HALOPERIDOL 5 MG TABLET PO PRN (09:21)
[2017-04-29] MEDS: LORazepam 2 MG TABLET PO PRN ×2 (09:21→16:52)
[2017-04-29 19:49] VITALS: BP 126/62
[2017-04-29] MEDS: TraZODone HCL 100 MG TABLET PO SCH (20:25)
[2017-04-30 05:22] VITALS: BP 145/78
[2017-04-30] MEDS: PANTOPRAZOLE SODIUM 40 MG DR TABLET PO SCH (06:54)
[2017-04-30] MEDS: LEVOTHYROXINE SODIUM 75 MCG TABLET PO SCH (06:54)
[2017-04-30 08:00] VITALS: BP 132/84
[2017-04-30] MEDS: NICOTINE 21 MG/24 HOUR PATCH TD SCH (09:00)
[2017-04-30] MEDS: BENZTROPINE MESYLATE 1 MG TABLET PO SCH ×2 (09:23→17:52)
[2017-04-30] MEDS: DOCUSATE SODIUM 100 MG CAPSULE PO SCH ×2 (09:23→17:52)
[2017-04-30] MEDS: DiphenhydrAMINE HCL 25 MG CAPSULE PO SCH ×2 (09:23→17:52)
[2017-04-30] MEDS: DIVALPROEX SODIUM 250 MG DR TABLET PO SCH ×2 (09:24→17:52)
[2017-04-30] MEDS: PALIPERIDONE 6 MG ER TABLET PO SCH ×2 (09:24→17:53)
[2017-04-30] MEDS: RisperiDONE 3 MG TABLET PO SCH ×2 (09:24→17:52)
[2017-04-30] MEDS: BISACODYL 5 MG EC TABLET PO PRN (09:55)
[2017-04-30] MEDS: LORazepam 2 MG TABLET PO PRN (12:32)
[2017-04-30] MEDS: HALOPERIDOL 5 MG TABLET PO PRN (12:32)
[2017-04-30 16:00] VITALS: BP 111/70
[2017-04-30] MEDS: TraZODone HCL 100 MG TABLET PO SCH (20:51)
[2017-05-01] MEDS: LEVOTHYROXINE SODIUM 75 MCG TABLET PO SCH (06:53)
[2017-05-01] MEDS: PANTOPRAZOLE SODIUM 40 MG DR TABLET PO SCH (06:53)
[2017-05-01] MEDS: NICOTINE 21 MG/24 HOUR PATCH TD SCH (09:00)
[2017-05-01] MEDS: DOCUSATE SODIUM 100 MG CAPSULE PO SCH ×2 (09:33→16:49)
[2017-05-01] MEDS: RisperiDONE 3 MG TABLET PO SCH ×2 (09:33→16:45)
[2017-05-01] MEDS: BENZTROPINE MESYLATE 1 MG TABLET PO SCH ×2 (09:33→16:45)
[2017-05-01] MEDS: DIVALPROEX SODIUM 250 MG DR TABLET PO SCH ×2 (09:33→16:45)
[2017-05-01] MEDS: PALIPERIDONE 6 MG ER TABLET PO SCH ×2 (09:33→16:45)
[2017-05-01] MEDS: DiphenhydrAMINE HCL 25 MG CAPSULE PO SCH ×2 (09:33→16:45)
[2017-05-01 10:50] VITALS: BP 126/87
[2017-05-01] MEDS: HALOPERIDOL 5 MG TABLET PO PRN (12:42)
[2017-05-01] MEDS: LORazepam 2 MG TABLET PO PRN (12:43)
[2017-05-01 17:05] VITALS: BP 105/65
[2017-05-01] MEDS: TraZODone HCL 100 MG TABLET PO SCH (20:28)
[2017-05-02 00:21] VITALS: BP 151/72
[2017-05-02] MEDS: PANTOPRAZOLE SODIUM 40 MG DR TABLET PO SCH (06:56)
[2017-05-02] MEDS: LEVOTHYROXINE SODIUM 75 MCG TABLET PO SCH (06:56)
[2017-05-02] MEDS: HALOPERIDOL 5 MG TABLET PO PRN ×2 (07:53→11:56)
[2017-05-02] MEDS: LORazepam 2 MG TABLET PO PRN ×3 (07:53→16:03)
[2017-05-02] MEDS: DIVALPROEX SODIUM 250 MG DR TABLET PO SCH ×2 (08:05→16:03)
[2017-05-02] MEDS: DiphenhydrAMINE HCL 25 MG CAPSULE PO SCH ×2 (08:05→16:02)
[2017-05-02] MEDS: DOCUSATE SODIUM 100 MG CAPSULE PO SCH ×2 (08:05→16:02)
[2017-05-02] MEDS: RisperiDONE 3 MG TABLET PO SCH ×2 (08:05→16:03)
[2017-05-02] MEDS: BENZTROPINE MESYLATE 1 MG TABLET PO SCH ×2 (08:05→16:02)
[2017-05-02] MEDS: PALIPERIDONE 6 MG ER TABLET PO SCH ×2 (08:05→16:02)
[2017-05-02] MEDS: NICOTINE 21 MG/24 HOUR PATCH TD SCH (09:00)
[2017-05-02] MEDS: PALIPERIDONE PALMITATE 234 MG/1.5 ML SYRINGE IM SCH (09:31)
[2017-05-02 09:50] VITALS: BP 128/89
[2017-05-02 16:51] VITALS: BP 124/62
[2017-05-02] MEDS: TraZODone HCL 100 MG TABLET PO SCH (20:02)
[2017-05-03] MEDS: PANTOPRAZOLE SODIUM 40 MG DR TABLET PO SCH (06:55)
[2017-05-03] MEDS: LEVOTHYROXINE SODIUM 75 MCG TABLET PO SCH (06:55)
[2017-05-03] MEDS: NICOTINE 21 MG/24 HOUR PATCH TD SCH (09:00)
[2017-05-03 09:12] VITALS: BP 114/84
[2017-05-03] MEDS: DIVALPROEX SODIUM 250 MG DR TABLET PO SCH ×2 (09:33→16:31)
[2017-05-03] MEDS: PALIPERIDONE 6 MG ER TABLET PO SCH ×2 (09:33→16:31)
[2017-05-03] MEDS: DiphenhydrAMINE HCL 25 MG CAPSULE PO SCH ×2 (09:33→16:31)
[2017-05-03] MEDS: DOCUSATE SODIUM 100 MG CAPSULE PO SCH ×2 (09:33→16:31)
[2017-05-03] MEDS: BENZTROPINE MESYLATE 1 MG TABLET PO SCH ×2 (09:34→16:32)
[2017-05-03] MEDS: RisperiDONE 3 MG TABLET PO SCH ×2 (09:34→16:31)
[2017-05-03] MEDS: HALOPERIDOL 5 MG TABLET PO PRN (10:24)
[2017-05-03] MEDS: LORazepam 2 MG TABLET PO PRN (10:24)
[2017-05-03 16:10] VITALS: BP 119/78
[2017-05-03] MEDS: TraZODone HCL 100 MG TABLET PO SCH (20:35)
[2017-05-04] MEDS: PANTOPRAZOLE SODIUM 40 MG DR TABLET PO SCH (06:32)
[2017-05-04] MEDS: LEVOTHYROXINE SODIUM 75 MCG TABLET PO SCH (06:32)
[2017-05-04 08:35] VITALS: BP 136/84
[2017-05-04] MEDS: NICOTINE 21 MG/24 HOUR PATCH TD SCH (09:00)
[2017-05-04] MEDS: PALIPERIDONE 6 MG ER TABLET PO SCH ×2 (09:31→16:21)
[2017-05-04] MEDS: BENZTROPINE MESYLATE 1 MG TABLET PO SCH ×2 (09:31→16:22)
[2017-05-04] MEDS: DIVALPROEX SODIUM 250 MG DR TABLET PO SCH ×2 (09:31→16:21)
[2017-05-04] MEDS: DOCUSATE SODIUM 100 MG CAPSULE PO SCH ×2 (09:31→16:22)
[2017-05-04] MEDS: RisperiDONE 3 MG TABLET PO SCH ×2 (09:31→16:22)
[2017-05-04] MEDS: DiphenhydrAMINE HCL 25 MG CAPSULE PO SCH ×2 (09:32→16:22)
[2017-05-04] MEDS: LORazepam 2 MG TABLET PO PRN ×2 (10:45→20:07)
[2017-05-04 16:27] VITALS: BP 115/70
[2017-05-04] MEDS: TraZODone HCL 100 MG TABLET PO SCH (20:07)
[2017-05-04] MEDS: ZOLPIDEM TARTRATE 10 MG TABLET PO PRN (21:39)
[2017-05-05] MEDS: PANTOPRAZOLE SODIUM 40 MG DR TABLET PO SCH (06:46)
[2017-05-05] MEDS: LEVOTHYROXINE SODIUM 75 MCG TABLET PO SCH (06:46)
[2017-05-05 08:30] VITALS: BP 128/88
[2017-05-05] MEDS: NICOTINE 21 MG/24 HOUR PATCH TD SCH (09:00)
[2017-05-05] MEDS: DIVALPROEX SODIUM 250 MG DR TABLET PO SCH ×2 (09:44→17:00)
[2017-05-05] MEDS: DiphenhydrAMINE HCL 25 MG CAPSULE PO SCH ×2 (09:44→16:59)
[2017-05-05] MEDS: BENZTROPINE MESYLATE 1 MG TABLET PO SCH ×2 (09:44→16:59)
[2017-05-05] MEDS: PALIPERIDONE 6 MG ER TABLET PO SCH ×2 (09:44→17:00)
[2017-05-05] MEDS: DOCUSATE SODIUM 100 MG CAPSULE PO SCH ×2 (09:44→16:59)
[2017-05-05] MEDS: RisperiDONE 3 MG TABLET PO SCH ×2 (09:45→17:00)
[2017-05-05] MEDS: LORazepam 2 MG TABLET PO PRN ×2 (12:35→17:00)
[2017-05-05 16:00] VITALS: BP 109/64
[2017-05-05] MEDS: TraZODone HCL 100 MG TABLET PO SCH (21:14)
[2017-05-06] MEDS: LORazepam 2 MG TABLET PO PRN ×2 (03:21→22:04)
[2017-05-06] MEDS: ZOLPIDEM TARTRATE 10 MG TABLET PO PRN ×2 (03:21→20:56)
[2017-05-06] MEDS: LEVOTHYROXINE SODIUM 75 MCG TABLET PO SCH (06:29)
[2017-05-06] MEDS: PANTOPRAZOLE SODIUM 40 MG DR TABLET PO SCH (06:29)
[2017-05-06] MEDS: PALIPERIDONE 6 MG ER TABLET PO SCH ×2 (09:14→16:09)
[2017-05-06] MEDS: DOCUSATE SODIUM 100 MG CAPSULE PO SCH ×2 (09:15→16:08)
[2017-05-06] MEDS: BENZTROPINE MESYLATE 1 MG TABLET PO SCH ×2 (09:15→16:08)
[2017-05-06] MEDS: RisperiDONE 3 MG TABLET PO SCH ×2 (09:15→16:08)
[2017-05-06] MEDS: DiphenhydrAMINE HCL 25 MG CAPSULE PO SCH ×2 (09:15→16:07)
[2017-05-06] MEDS: DIVALPROEX SODIUM 250 MG DR TABLET PO SCH ×2 (09:16→16:08)
[2017-05-06] MEDS: NICOTINE 21 MG/24 HOUR PATCH TD SCH (09:16)
[2017-05-06 16:39] VITALS: BP 101/60
[2017-05-06] MEDS: TraZODone HCL 100 MG TABLET PO SCH (20:30)
[2017-05-06] MEDS: HALOPERIDOL 5 MG TABLET PO PRN (22:04)
[2017-05-07] MEDS: LEVOTHYROXINE SODIUM 75 MCG TABLET PO SCH (06:46)
[2017-05-07] MEDS: PANTOPRAZOLE SODIUM 40 MG DR TABLET PO SCH (06:46)
[2017-05-07] MEDS: DIVALPROEX SODIUM 250 MG DR TABLET PO SCH ×2 (07:49→16:30)
[2017-05-07] MEDS: DiphenhydrAMINE HCL 25 MG CAPSULE PO SCH ×2 (07:49→16:29)
[2017-05-07] MEDS: HALOPERIDOL 5 MG TABLET PO PRN ×2 (07:49→13:12)
[2017-05-07] MEDS: LORazepam 2 MG TABLET PO PRN ×2 (07:49→13:12)
[2017-05-07] MEDS: PALIPERIDONE 6 MG ER TABLET PO SCH ×2 (07:50→16:29)
[2017-05-07] MEDS: DOCUSATE SODIUM 100 MG CAPSULE PO SCH ×2 (07:50→16:29)
[2017-05-07] MEDS: BENZTROPINE MESYLATE 1 MG TABLET PO SCH ×2 (07:50→16:29)
[2017-05-07] MEDS: RisperiDONE 3 MG TABLET PO SCH ×2 (07:50→16:29)
[2017-05-07] MEDS: NICOTINE 21 MG/24 HOUR PATCH TD SCH (08:01)
[2017-05-07 08:24] VITALS: BP 122/87
[2017-05-07 16:51] VITALS: BP 109/71
[2017-05-07] MEDS: TraZODone HCL 100 MG TABLET PO SCH (20:43)
[2017-05-07] MEDS: ZOLPIDEM TARTRATE 10 MG TABLET PO PRN (22:25)
[2017-05-08] MEDS: LEVOTHYROXINE SODIUM 75 MCG TABLET PO SCH (06:33)
[2017-05-08] MEDS: PANTOPRAZOLE SODIUM 40 MG DR TABLET PO SCH (06:33)
[2017-05-08 08:00] VITALS: BP 103/56
[2017-05-08] MEDS: RisperiDONE 3 MG TABLET PO SCH ×2 (09:48→17:14)
[2017-05-08] MEDS: DiphenhydrAMINE HCL 25 MG CAPSULE PO SCH ×2 (09:48→17:14)
[2017-05-08] MEDS: DOCUSATE SODIUM 100 MG CAPSULE PO SCH ×2 (09:48→17:14)
[2017-05-08] MEDS: BENZTROPINE MESYLATE 1 MG TABLET PO SCH ×2 (09:48→17:14)
[2017-05-08] MEDS: NICOTINE 21 MG/24 HOUR PATCH TD SCH (09:50)
[2017-05-08] MEDS: DIVALPROEX SODIUM 250 MG DR TABLET PO SCH ×2 (09:57→17:14)
[2017-05-08] MEDS: PALIPERIDONE 6 MG ER TABLET PO SCH ×2 (09:57→17:14)
[2017-05-08] MEDS: LORazepam 2 MG TABLET PO PRN (10:58)
[2017-05-08] MEDS: HALOPERIDOL 5 MG TABLET PO PRN ×2 (10:58→18:01)
[2017-05-08 16:00] VITALS: BP 109/70
[2017-05-08] MEDS: TraZODone HCL 100 MG TABLET PO SCH (20:23)
[2017-05-09] MEDS: LEVOTHYROXINE SODIUM 75 MCG TABLET PO SCH (06:38)
[2017-05-09] MEDS: PANTOPRAZOLE SODIUM 40 MG DR TABLET PO SCH (06:38)
[2017-05-09 08:24] VITALS: BP 105/58
[2017-05-09] MEDS: NICOTINE 21 MG/24 HOUR PATCH TD SCH (09:00)
[2017-05-09] MEDS: BENZTROPINE MESYLATE 1 MG TABLET PO SCH ×2 (09:16→16:18)
[2017-05-09] MEDS: PALIPERIDONE 6 MG ER TABLET PO SCH ×2 (09:16→16:16)
[2017-05-09] MEDS: DiphenhydrAMINE HCL 25 MG CAPSULE PO SCH ×2 (09:17→16:16)
[2017-05-09] MEDS: DOCUSATE SODIUM 100 MG CAPSULE PO SCH ×2 (09:17→16:17)
[2017-05-09] MEDS: DIVALPROEX SODIUM 250 MG DR TABLET PO SCH ×2 (09:17→16:16)
[2017-05-09] MEDS: RisperiDONE 3 MG TABLET PO SCH ×2 (09:17→16:16)
[2017-05-09] MEDS: HALOPERIDOL 5 MG TABLET PO PRN ×2 (14:01→20:19)
[2017-05-09 16:30] VITALS: BP 131/84
[2017-05-09] MEDS: LORazepam 2 MG TABLET PO PRN (17:22)
[2017-05-09] MEDS: TraZODone HCL 100 MG TABLET PO SCH (20:19)
[2017-05-09] MEDS: ZOLPIDEM TARTRATE 10 MG TABLET PO PRN ×2 (21:14→21:48)
[2017-05-10] MEDS: PANTOPRAZOLE SODIUM 40 MG DR TABLET PO SCH (06:36)
[2017-05-10] MEDS: LEVOTHYROXINE SODIUM 75 MCG TABLET PO SCH (06:36)
[2017-05-10] MEDS: NICOTINE 21 MG/24 HOUR PATCH TD SCH (09:00)
[2017-05-10] MEDS: DiphenhydrAMINE HCL 25 MG CAPSULE PO SCH ×2 (09:07→17:10)
[2017-05-10] MEDS: BENZTROPINE MESYLATE 1 MG TABLET PO SCH ×2 (09:07→17:11)
[2017-05-10] MEDS: DIVALPROEX SODIUM 250 MG DR TABLET PO SCH ×2 (09:07→17:10)
[2017-05-10] MEDS: PALIPERIDONE 6 MG ER TABLET PO SCH ×2 (09:08→17:09)
[2017-05-10] MEDS: DOCUSATE SODIUM 100 MG CAPSULE PO SCH ×2 (09:08→17:10)
[2017-05-10] MEDS: RisperiDONE 3 MG TABLET PO SCH ×2 (09:08→17:10)
[2017-05-10] MEDS: LORazepam 2 MG TABLET PO PRN (12:03)
[2017-05-10] MEDS: HALOPERIDOL 5 MG TABLET PO PRN (12:04)
[2017-05-10] MEDS: TraZODone HCL 100 MG TABLET PO SCH (20:49)
[2017-05-11] MEDS: LEVOTHYROXINE SODIUM 75 MCG TABLET PO SCH (06:47)
[2017-05-11] MEDS: PANTOPRAZOLE SODIUM 40 MG DR TABLET PO SCH (06:48)
[2017-05-11] MEDS: DOCUSATE SODIUM 100 MG CAPSULE PO SCH ×2 (08:25→17:28)
[2017-05-11] MEDS: DIVALPROEX SODIUM 250 MG DR TABLET PO SCH ×2 (08:25→17:28)
[2017-05-11] MEDS: DiphenhydrAMINE HCL 25 MG CAPSULE PO SCH ×2 (08:25→17:28)
[2017-05-11] MEDS: BENZTROPINE MESYLATE 1 MG TABLET PO SCH ×2 (08:25→17:30)
[2017-05-11] MEDS: RisperiDONE 3 MG TABLET PO SCH ×2 (08:26→17:29)
[2017-05-11] MEDS: PALIPERIDONE 6 MG ER TABLET PO SCH ×2 (08:26→17:28)
[2017-05-11] MEDS: NICOTINE 21 MG/24 HOUR PATCH TD SCH (08:31)
[2017-05-11] MEDS: HALOPERIDOL 5 MG TABLET PO PRN ×2 (10:46→18:55)
[2017-05-11] MEDS: LORazepam 2 MG TABLET PO PRN (12:31)
[2017-05-11 17:30] VITALS: BP 145/84
[2017-05-11] MEDS: TraZODone HCL 100 MG TABLET PO SCH (20:31)
[2017-05-12] MEDS: LEVOTHYROXINE SODIUM 75 MCG TABLET PO SCH (07:03)
[2017-05-12] MEDS: PANTOPRAZOLE SODIUM 40 MG DR TABLET PO SCH (07:03)
[2017-05-12] MEDS: NICOTINE 21 MG/24 HOUR PATCH TD SCH (09:00)
[2017-05-12] MEDS: LORazepam 2 MG TABLET PO PRN ×2 (09:53→18:24)
[2017-05-12] MEDS: RisperiDONE 3 MG TABLET PO SCH ×2 (09:53→16:23)
[2017-05-12] MEDS: PALIPERIDONE 6 MG ER TABLET PO SCH ×2 (09:53→16:22)
[2017-05-12] MEDS: DIVALPROEX SODIUM 250 MG DR TABLET PO SCH ×2 (09:53→16:22)
[2017-05-12] MEDS: BENZTROPINE MESYLATE 1 MG TABLET PO SCH ×2 (09:53→16:22)
[2017-05-12] MEDS: DiphenhydrAMINE HCL 25 MG CAPSULE PO SCH ×2 (09:53→16:22)
[2017-05-12] MEDS: DOCUSATE SODIUM 100 MG CAPSULE PO SCH ×2 (09:54→16:23)
[2017-05-12] MEDS: HALOPERIDOL 5 MG TABLET PO PRN ×2 (09:54→18:24)
[2017-05-12 18:26] VITALS: BP 107/75
[2017-05-12] MEDS: TraZODone HCL 100 MG TABLET PO SCH (21:19)
[2017-05-12] MEDS: ZOLPIDEM TARTRATE 10 MG TABLET PO PRN (21:48)
[2017-05-13 03:20] VITALS: BP 101/58
[2017-05-13] MEDS: LEVOTHYROXINE SODIUM 75 MCG TABLET PO SCH (06:40)
[2017-05-13] MEDS: PANTOPRAZOLE SODIUM 40 MG DR TABLET PO SCH (06:40)
[2017-05-13 08:27] VITALS: BP 112/74
[2017-05-13] MEDS: RisperiDONE 3 MG TABLET PO SCH ×2 (08:29→15:52)
[2017-05-13] MEDS: LORazepam 2 MG TABLET PO PRN (08:29)
[2017-05-13] MEDS: DiphenhydrAMINE HCL 25 MG CAPSULE PO SCH ×2 (08:29→15:53)
[2017-05-13] MEDS: DOCUSATE SODIUM 100 MG CAPSULE PO SCH ×2 (08:29→15:52)
[2017-05-13] MEDS: PALIPERIDONE 6 MG ER TABLET PO SCH ×2 (08:29→18:38)
[2017-05-13] MEDS: BENZTROPINE MESYLATE 1 MG TABLET PO SCH ×2 (08:29→15:52)
[2017-05-13] MEDS: HALOPERIDOL 5 MG TABLET PO PRN (08:29)
[2017-05-13] MEDS: DIVALPROEX SODIUM 250 MG DR TABLET PO SCH ×2 (08:29→15:52)
[2017-05-13] MEDS: NICOTINE 21 MG/24 HOUR PATCH TD SCH (08:30)
[2017-05-13 16:43] VITALS: BP 107/68
[2017-05-13] MEDS: TraZODone HCL 100 MG TABLET PO SCH (20:05)
[2017-05-13] MEDS: ZOLPIDEM TARTRATE 10 MG TABLET PO PRN (20:33)
[2017-05-14] MEDS: PANTOPRAZOLE SODIUM 40 MG DR TABLET PO SCH (06:43)
[2017-05-14] MEDS: LEVOTHYROXINE SODIUM 75 MCG TABLET PO SCH (06:44)
[2017-05-14] MEDS: NICOTINE 21 MG/24 HOUR PATCH TD SCH (09:00)
[2017-05-14 09:55] VITALS: BP 132/74
[2017-05-14] MEDS: HALOPERIDOL 5 MG TABLET PO PRN (10:20)
[2017-05-14] MEDS: DIVALPROEX SODIUM 250 MG DR TABLET PO SCH ×2 (10:20→16:30)
[2017-05-14] MEDS: RisperiDONE 3 MG TABLET PO SCH ×2 (10:20→16:30)
[2017-05-14] MEDS: PALIPERIDONE 6 MG ER TABLET PO SCH ×2 (10:20→16:30)
[2017-05-14] MEDS: DOCUSATE SODIUM 100 MG CAPSULE PO SCH ×2 (10:21→16:30)
[2017-05-14] MEDS: LORazepam 2 MG TABLET PO PRN (10:21)
[2017-05-14] MEDS: BENZTROPINE MESYLATE 1 MG TABLET PO SCH ×2 (10:21→16:30)
[2017-05-14] MEDS: DiphenhydrAMINE HCL 25 MG CAPSULE PO SCH ×2 (10:22→16:30)
[2017-05-14 16:41] VITALS: BP 102/64
[2017-05-14] MEDS: TraZODone HCL 100 MG TABLET PO SCH (20:58)
[2017-05-14] MEDS: ZOLPIDEM TARTRATE 10 MG TABLET PO PRN (21:32)
[2017-05-15] MEDS: LEVOTHYROXINE SODIUM 75 MCG TABLET PO SCH (06:39)
[2017-05-15] MEDS: PANTOPRAZOLE SODIUM 40 MG DR TABLET PO SCH (06:39)
[2017-05-15] MEDS: NICOTINE 21 MG/24 HOUR PATCH TD SCH (09:00)
[2017-05-15 09:15] VITALS: BP 115/71
[2017-05-15] MEDS: DiphenhydrAMINE HCL 25 MG CAPSULE PO SCH ×2 (09:23→16:30)
[2017-05-15] MEDS: BENZTROPINE MESYLATE 1 MG TABLET PO SCH ×2 (09:23→16:30)
[2017-05-15] MEDS: DIVALPROEX SODIUM 250 MG DR TABLET PO SCH ×2 (09:24→16:30)
[2017-05-15] MEDS: PALIPERIDONE 6 MG ER TABLET PO SCH ×2 (09:24→16:31)
[2017-05-15] MEDS: DOCUSATE SODIUM 100 MG CAPSULE PO SCH ×2 (09:24→16:30)
[2017-05-15] MEDS: RisperiDONE 3 MG TABLET PO SCH ×2 (09:25→16:30)
[2017-05-15] MEDS: LORazepam 2 MG TABLET PO PRN (12:33)
[2017-05-15] MEDS: HALOPERIDOL 5 MG TABLET PO PRN (12:35)
[2017-05-15 16:49] VITALS: BP 118/71
[2017-05-15] MEDS: TraZODone HCL 100 MG TABLET PO SCH (20:16)
[2017-05-16] MEDS: PANTOPRAZOLE SODIUM 40 MG DR TABLET PO SCH (06:44)
[2017-05-16] MEDS: LEVOTHYROXINE SODIUM 75 MCG TABLET PO SCH (06:45)
[2017-05-16] MEDS: NICOTINE 21 MG/24 HOUR PATCH TD SCH (09:00)
[2017-05-16] MEDS: PALIPERIDONE 6 MG ER TABLET PO SCH ×2 (09:20→16:20)
[2017-05-16] MEDS: DIVALPROEX SODIUM 250 MG DR TABLET PO SCH ×2 (09:22→16:19)
[2017-05-16] MEDS: DiphenhydrAMINE HCL 25 MG CAPSULE PO SCH ×2 (09:22→16:20)
[2017-05-16] MEDS: LORazepam 2 MG TABLET PO PRN ×3 (09:22→18:04)
[2017-05-16] MEDS: RisperiDONE 3 MG TABLET PO SCH ×2 (09:22→16:19)
[2017-05-16] MEDS: BENZTROPINE MESYLATE 1 MG TABLET PO SCH ×2 (09:22→16:20)
[2017-05-16] MEDS: DOCUSATE SODIUM 100 MG CAPSULE PO SCH ×2 (09:22→16:20)
[2017-05-16] MEDS: HALOPERIDOL 5 MG TABLET PO PRN ×3 (09:23→18:04)
[2017-05-16 16:49] VITALS: BP 113/85
[2017-05-16] MEDS: TraZODone HCL 100 MG TABLET PO SCH (21:17)
[2017-05-17] MEDS: LEVOTHYROXINE SODIUM 75 MCG TABLET PO SCH (06:51)
[2017-05-17] MEDS: PANTOPRAZOLE SODIUM 40 MG DR TABLET PO SCH (06:51)
[2017-05-17] MEDS: NICOTINE 21 MG/24 HOUR PATCH TD SCH (09:00)
[2017-05-17] MEDS: DIVALPROEX SODIUM 250 MG DR TABLET PO SCH ×2 (09:09→16:10)
[2017-05-17] MEDS: BENZTROPINE MESYLATE 1 MG TABLET PO SCH ×2 (09:09→16:10)
[2017-05-17] MEDS: RisperiDONE 3 MG TABLET PO SCH ×2 (09:10→16:10)
[2017-05-17] MEDS: HALOPERIDOL 5 MG TABLET PO PRN ×3 (09:10→20:08)
[2017-05-17] MEDS: LORazepam 2 MG TABLET PO PRN ×3 (09:10→20:08)
[2017-05-17] MEDS: PALIPERIDONE 6 MG ER TABLET PO SCH ×2 (09:10→16:11)
[2017-05-17] MEDS: DOCUSATE SODIUM 100 MG CAPSULE PO SCH ×2 (09:10→16:10)
[2017-05-17] MEDS: DiphenhydrAMINE HCL 25 MG CAPSULE PO SCH ×2 (09:10→16:10)
[2017-05-17 16:13] VITALS: BP 135/92
[2017-05-17 16:30] VITALS: BP 110/65
[2017-05-17 17:15] VITALS: BP 112/68
[2017-05-17 17:45] VITALS: BP 110/78
[2017-05-17 18:45] VITALS: BP 111/69
[2017-05-17] MEDS: TraZODone HCL 100 MG TABLET PO SCH (20:07)
[2017-05-17 21:30] VITALS: BP 115/67
[2017-05-18] MEDS: LEVOTHYROXINE SODIUM 75 MCG TABLET PO SCH (06:42)
[2017-05-18] MEDS: PANTOPRAZOLE SODIUM 40 MG DR TABLET PO SCH (06:42)
[2017-05-18] MEDS: NICOTINE 21 MG/24 HOUR PATCH TD SCH (09:00)
[2017-05-18] MEDS: DiphenhydrAMINE HCL 25 MG CAPSULE PO SCH ×2 (10:37→16:03)
[2017-05-18] MEDS: BENZTROPINE MESYLATE 1 MG TABLET PO SCH ×2 (10:38→16:03)
[2017-05-18] MEDS: DOCUSATE SODIUM 100 MG CAPSULE PO SCH ×2 (10:38→16:09)
[2017-05-18] MEDS: RisperiDONE 3 MG TABLET PO SCH ×2 (10:38→16:03)
[2017-05-18] MEDS: PALIPERIDONE 6 MG ER TABLET PO SCH ×2 (10:38→16:04)
[2017-05-18] MEDS: DIVALPROEX SODIUM 250 MG DR TABLET PO SCH ×2 (10:38→16:04)
[2017-05-18] MEDS: LORazepam 2 MG TABLET PO PRN (10:39)
[2017-05-18] MEDS: HALOPERIDOL 5 MG TABLET PO PRN (10:40)
[2017-05-18 16:18] VITALS: BP 99/63
[2017-05-18] MEDS: TraZODone HCL 100 MG TABLET PO SCH (21:40)
[2017-05-19] MEDS: LEVOTHYROXINE SODIUM 75 MCG TABLET PO SCH (06:49)
[2017-05-19] MEDS: PANTOPRAZOLE SODIUM 40 MG DR TABLET PO SCH (06:49)
[2017-05-19 08:39] VITALS: BP 101/69
[2017-05-19] MEDS: NICOTINE 21 MG/24 HOUR PATCH TD SCH (09:00)
[2017-05-19] MEDS: HALOPERIDOL 5 MG TABLET PO PRN ×2 (09:20→14:30)
[2017-05-19] MEDS: LORazepam 2 MG TABLET PO PRN ×2 (09:20→14:30)
[2017-05-19] MEDS: PALIPERIDONE 6 MG ER TABLET PO SCH ×2 (09:20→16:41)
[2017-05-19] MEDS: RisperiDONE 3 MG TABLET PO SCH ×2 (09:20→16:40)
[2017-05-19] MEDS: DOCUSATE SODIUM 100 MG CAPSULE PO SCH ×2 (09:20→16:39)
[2017-05-19] MEDS: BENZTROPINE MESYLATE 1 MG TABLET PO SCH ×2 (09:21→16:42)
[2017-05-19] MEDS: DIVALPROEX SODIUM 250 MG DR TABLET PO SCH ×2 (09:21→16:39)
[2017-05-19] MEDS: DiphenhydrAMINE HCL 25 MG CAPSULE PO SCH ×2 (09:21→16:40)
[2017-05-19] MEDS: TraZODone HCL 100 MG TABLET PO SCH (20:05)
[2017-05-19] MEDS: ZOLPIDEM TARTRATE 10 MG TABLET PO PRN (22:25)
[2017-05-20] MEDS: PANTOPRAZOLE SODIUM 40 MG DR TABLET PO SCH (06:55)
[2017-05-20] MEDS: LEVOTHYROXINE SODIUM 75 MCG TABLET PO SCH (06:55)
[2017-05-20] MEDS: NICOTINE 21 MG/24 HOUR PATCH TD SCH (09:00)
[2017-05-20 09:13] VITALS: BP 118/82
[2017-05-20] MEDS: DiphenhydrAMINE HCL 25 MG CAPSULE PO SCH ×2 (10:44→16:15)
[2017-05-20] MEDS: RisperiDONE 3 MG TABLET PO SCH ×2 (10:44→16:15)
[2017-05-20] MEDS: PALIPERIDONE 6 MG ER TABLET PO SCH ×2 (10:44→16:15)
[2017-05-20] MEDS: DIVALPROEX SODIUM 250 MG DR TABLET PO SCH ×2 (10:44→16:15)
[2017-05-20] MEDS: LORazepam 2 MG TABLET PO PRN ×2 (10:45→16:15)
[2017-05-20] MEDS: BENZTROPINE MESYLATE 1 MG TABLET PO SCH ×2 (10:45→16:15)
[2017-05-20] MEDS: DOCUSATE SODIUM 100 MG CAPSULE PO SCH ×2 (10:45→16:15)
[2017-05-20] MEDS: HALOPERIDOL 5 MG TABLET PO PRN ×2 (10:45→16:15)
[2017-05-20 17:52] VITALS: BP 105/81
[2017-05-20] MEDS: TraZODone HCL 100 MG TABLET PO SCH (20:22)
[2017-05-20] MEDS: ZOLPIDEM TARTRATE 10 MG TABLET PO PRN (20:22)
[2017-05-21 02:01] VITALS: BP 140/78
[2017-05-21] MEDS: LEVOTHYROXINE SODIUM 75 MCG TABLET PO SCH (06:55)
[2017-05-21] MEDS: PANTOPRAZOLE SODIUM 40 MG DR TABLET PO SCH (06:56)
[2017-05-21 09:00] VITALS: BP 113/63
[2017-05-21] MEDS: NICOTINE 21 MG/24 HOUR PATCH TD SCH (09:00)
[2017-05-21] MEDS: LORazepam 2 MG TABLET PO PRN ×2 (09:54→16:08)
[2017-05-21] MEDS: BENZTROPINE MESYLATE 1 MG TABLET PO SCH ×2 (09:54→16:08)
[2017-05-21] MEDS: DIVALPROEX SODIUM 250 MG DR TABLET PO SCH ×2 (09:54→16:08)
[2017-05-21] MEDS: DOCUSATE SODIUM 100 MG CAPSULE PO SCH ×2 (09:54→16:08)
[2017-05-21] MEDS: DiphenhydrAMINE HCL 25 MG CAPSULE PO SCH ×2 (09:54→16:08)
[2017-05-21] MEDS: PALIPERIDONE 6 MG ER TABLET PO SCH ×2 (09:55→16:09)
[2017-05-21] MEDS: HALOPERIDOL 5 MG TABLET PO PRN ×2 (09:55→16:08)
[2017-05-21] MEDS: RisperiDONE 3 MG TABLET PO SCH ×2 (09:55→16:08)
[2017-05-21] MEDS: ACETAMINOPHEN 325 MG TABLET PO PRN (13:30)
[2017-05-21 19:08] VITALS: BP 125/88
[2017-05-21] MEDS: TraZODone HCL 100 MG TABLET PO SCH (20:06)
[2017-05-21] MEDS: ZOLPIDEM TARTRATE 10 MG TABLET PO PRN (20:06)
[2017-05-22] MEDS: PANTOPRAZOLE SODIUM 40 MG DR TABLET PO SCH (06:58)
[2017-05-22] MEDS: LEVOTHYROXINE SODIUM 75 MCG TABLET PO SCH (06:58)
[2017-05-22] MEDS: NICOTINE 21 MG/24 HOUR PATCH TD SCH (09:00)
[2017-05-22] MEDS: DiphenhydrAMINE HCL 25 MG CAPSULE PO SCH ×2 (09:22→16:31)
[2017-05-22] MEDS: PALIPERIDONE 6 MG ER TABLET PO SCH ×2 (09:22→16:31)
[2017-05-22] MEDS: DOCUSATE SODIUM 100 MG CAPSULE PO SCH ×2 (09:22→16:31)
[2017-05-22] MEDS: LORazepam 2 MG TABLET PO PRN (09:22)
[2017-05-22] MEDS: RisperiDONE 3 MG TABLET PO SCH ×2 (09:22→16:31)
[2017-05-22] MEDS: BENZTROPINE MESYLATE 1 MG TABLET PO SCH ×2 (09:22→16:31)
[2017-05-22] MEDS: DIVALPROEX SODIUM 250 MG DR TABLET PO SCH ×2 (09:23→16:31)
[2017-05-22] MEDS: HALOPERIDOL 5 MG TABLET PO PRN (09:23)
[2017-05-22 10:17] VITALS: BP 107/58
[2017-05-22] MEDS: ACETAMINOPHEN 325 MG TABLET PO PRN (13:10)
[2017-05-22 16:00] VITALS: BP 107/67
[2017-05-22] MEDS: TraZODone HCL 100 MG TABLET PO SCH (21:19)
[2017-05-23] MEDS: PANTOPRAZOLE SODIUM 40 MG DR TABLET PO SCH (06:38)
[2017-05-23] MEDS: LEVOTHYROXINE SODIUM 75 MCG TABLET PO SCH (06:38)
[2017-05-23] MEDS: NICOTINE 21 MG/24 HOUR PATCH TD SCH (09:00)
[2017-05-23] MEDS: DiphenhydrAMINE HCL 25 MG CAPSULE PO SCH ×2 (09:55→16:38)
[2017-05-23] MEDS: DIVALPROEX SODIUM 250 MG DR TABLET PO SCH ×2 (09:55→16:37)
[2017-05-23] MEDS: DOCUSATE SODIUM 100 MG CAPSULE PO SCH ×2 (09:55→16:37)
[2017-05-23] MEDS: BENZTROPINE MESYLATE 1 MG TABLET PO SCH ×2 (09:55→16:37)
[2017-05-23] MEDS: ACETAMINOPHEN 325 MG TABLET PO PRN (09:55)
[2017-05-23] MEDS: PALIPERIDONE 6 MG ER TABLET PO SCH ×2 (09:56→16:37)
[2017-05-23] MEDS: RisperiDONE 3 MG TABLET PO SCH ×2 (09:56→16:37)
[2017-05-23] MEDS: LORazepam 2 MG TABLET PO PRN (09:56)
[2017-05-23] MEDS: HALOPERIDOL 5 MG TABLET PO PRN (09:56)
[2017-05-23 18:16] VITALS: BP 104/62
[2017-05-23] MEDS: TraZODone HCL 100 MG TABLET PO SCH (21:33)
[2017-05-24] MEDS: LEVOTHYROXINE SODIUM 75 MCG TABLET PO SCH (07:00)
[2017-05-24] MEDS: PANTOPRAZOLE SODIUM 40 MG DR TABLET PO SCH (07:00)
[2017-05-24] MEDS: NICOTINE 21 MG/24 HOUR PATCH TD SCH (09:00)
[2017-05-24] MEDS: RisperiDONE 3 MG TABLET PO SCH ×2 (10:19→16:45)
[2017-05-24] MEDS: PALIPERIDONE 6 MG ER TABLET PO SCH ×2 (10:19→18:03)
[2017-05-24] MEDS: DiphenhydrAMINE HCL 25 MG CAPSULE PO SCH ×2 (10:20→16:44)
[2017-05-24] MEDS: DIVALPROEX SODIUM 250 MG DR TABLET PO SCH ×2 (10:20→16:45)
[2017-05-24] MEDS: DOCUSATE SODIUM 100 MG CAPSULE PO SCH ×2 (10:20→16:45)
[2017-05-24] MEDS: BENZTROPINE MESYLATE 1 MG TABLET PO SCH ×2 (10:20→16:45)
[2017-05-24] MEDS: HALOPERIDOL 5 MG TABLET PO PRN (10:25)
[2017-05-24] MEDS: LORazepam 2 MG TABLET PO PRN (10:25)
[2017-05-24] MEDS: ACETAMINOPHEN 325 MG TABLET PO PRN (11:14)
[2017-05-24] MEDS: TraZODone HCL 100 MG TABLET PO SCH (21:50)
[2017-05-25] MEDS: ZOLPIDEM TARTRATE 10 MG TABLET PO PRN (01:31)
[2017-05-25 01:32] VITALS: BP 136/75
[2017-05-25] MEDS: PANTOPRAZOLE SODIUM 40 MG DR TABLET PO SCH (08:11)
[2017-05-25] MEDS: LEVOTHYROXINE SODIUM 75 MCG TABLET PO SCH (08:12)
[2017-05-25] MEDS: DIVALPROEX SODIUM 250 MG DR TABLET PO SCH ×2 (08:12→17:27)
[2017-05-25] MEDS: DOCUSATE SODIUM 100 MG CAPSULE PO SCH ×2 (08:12→17:27)
[2017-05-25] MEDS: DiphenhydrAMINE HCL 25 MG CAPSULE PO SCH ×2 (08:12→17:27)
[2017-05-25] MEDS: BENZTROPINE MESYLATE 1 MG TABLET PO SCH ×2 (08:12→17:27)
[2017-05-25] MEDS: RisperiDONE 3 MG TABLET PO SCH ×2 (08:13→17:27)
[2017-05-25] MEDS: PALIPERIDONE 6 MG ER TABLET PO SCH ×2 (08:13→17:27)
[2017-05-25] MEDS: NICOTINE 21 MG/24 HOUR PATCH TD SCH (08:19)
[2017-05-25 09:10] VITALS: BP 127/64
[2017-05-25] MEDS: ACETAMINOPHEN 325 MG TABLET PO PRN (14:03)
[2017-05-25] MEDS: LORazepam 2 MG TABLET PO PRN (14:05)
[2017-05-25] MEDS: HALOPERIDOL 5 MG TABLET PO PRN (14:05)
[2017-05-25 16:30] VITALS: BP 139/67
[2017-05-25] MEDS: TraZODone HCL 100 MG TABLET PO SCH (21:09)
[2017-05-26] MEDS: LEVOTHYROXINE SODIUM 75 MCG TABLET PO SCH (06:48)
[2017-05-26] MEDS: PANTOPRAZOLE SODIUM 40 MG DR TABLET PO SCH (06:49)
[2017-05-26] MEDS: RisperiDONE 3 MG TABLET PO SCH ×2 (09:31→16:09)
[2017-05-26] MEDS: BENZTROPINE MESYLATE 1 MG TABLET PO SCH ×2 (09:32→16:08)
[2017-05-26] MEDS: PALIPERIDONE 6 MG ER TABLET PO SCH ×2 (09:32→16:09)
[2017-05-26] MEDS: DIVALPROEX SODIUM 250 MG DR TABLET PO SCH ×2 (09:33→16:08)
[2017-05-26] MEDS: DiphenhydrAMINE HCL 25 MG CAPSULE PO SCH ×2 (09:34→16:09)
[2017-05-26] MEDS: DOCUSATE SODIUM 100 MG CAPSULE PO SCH ×2 (09:34→16:09)
[2017-05-26] MEDS: NICOTINE 21 MG/24 HOUR PATCH TD SCH (09:34)
[2017-05-26 10:52] VITALS: BP 112/81
[2017-05-26] MEDS: LORazepam 2 MG TABLET PO PRN (12:24)
[2017-05-26] MEDS: HALOPERIDOL 5 MG TABLET PO PRN (12:24)
[2017-05-26 16:53] VITALS: BP 119/79
[2017-05-26] MEDS: TraZODone HCL 100 MG TABLET PO SCH (21:09)
[2017-05-27] MEDS: LEVOTHYROXINE SODIUM 75 MCG TABLET PO SCH (06:31)
[2017-05-27] MEDS: PANTOPRAZOLE SODIUM 40 MG DR TABLET PO SCH (06:31)
[2017-05-27 06:45] LABS: BASOPHILS % (AUTO) 0.6 % (0.0-2.0); EOSINOPHILS % (AUTO) 0.3 % (1.0-6.0); HEMATOCRIT 41.5 % (36-46); HEMOGLOBIN 14.5 g/dL (12.0-16.0); LYMPHOCYTES # (AUTO) 1.8 K/uL (1.0-4.8); LYMPHOCYTES % (AUTO) 53.5 % (22.0-44.0); MEAN CORPUSCULAR HEMOGLOBIN 31.7 pg (26.0-34.0); MEAN CORPUSCULAR HGB CONC 35.1 G/dL (31.0-37.0); MEAN CORPUSCULAR VOLUME 91 fL (80-100); MONOCYTES # (AUTO) 0.3 K/uL (0.1-1.0); MONOCYTES % (AUTO) 9.1 % (2.0-9.0); NEUTROPHILS # (AUTO) 1.2 K/uL (1.8-7.7); NEUTROPHILS % (AUTO) 36.5 % (40.0-70.0); PLATELET COUNT (AUTO) 123 K/uL (150-450); RED BLOOD CELL COUNT(AUTO) 4.58 MIL/uL (4.00-5.20); RED CELL DISTRIBUTION WIDTH 15.9 % (11.5-14.5)
[2017-05-27 07:02] LABS: ALBUMIN 3.3 g/dL (3.4-5.0); BILIRUBIN,TOTAL 0.3 mg/dL (0.1-1.0); CALCIUM, TOTAL 9.1 mg/dL (8.8-10.5); CREATININE 1.03 mg/dL (0.60-1.30); TOTAL PROTEIN, SERUM 6.1 g/dL (6.4-8.2)
[2017-05-27] MEDS: PALIPERIDONE 6 MG ER TABLET PO SCH ×2 (08:44→16:50)
[2017-05-27] MEDS: RisperiDONE 3 MG TABLET PO SCH ×2 (08:45→16:49)
[2017-05-27] MEDS: DIVALPROEX SODIUM 250 MG DR TABLET PO SCH ×2 (08:45→16:49)
[2017-05-27] MEDS: DOCUSATE SODIUM 100 MG CAPSULE PO SCH ×2 (08:45→16:49)
[2017-05-27] MEDS: DiphenhydrAMINE HCL 25 MG CAPSULE PO SCH ×2 (08:45→16:51)
[2017-05-27] MEDS: NICOTINE 21 MG/24 HOUR PATCH TD SCH (08:50)
[2017-05-27] MEDS: BENZTROPINE MESYLATE 1 MG TABLET PO SCH ×2 (08:53→16:49)
[2017-05-27 12:11] VITALS: BP 136/72
[2017-05-27] MEDS: HALOPERIDOL 5 MG TABLET PO PRN ×2 (12:11→16:50)
[2017-05-27] MEDS: LORazepam 2 MG TABLET PO PRN ×2 (12:11→16:50)
[2017-05-27 16:00] VITALS: BP 131/82
[2017-05-27] MEDS: TraZODone HCL 100 MG TABLET PO SCH (20:22)
[2017-05-28] MEDS: PANTOPRAZOLE SODIUM 40 MG DR TABLET PO SCH (06:28)
[2017-05-28] MEDS: LEVOTHYROXINE SODIUM 75 MCG TABLET PO SCH (06:28)
[2017-05-28 08:00] VITALS: BP 128/66
[2017-05-28] MEDS: NICOTINE 21 MG/24 HOUR PATCH TD SCH (09:00)
[2017-05-28] MEDS: RisperiDONE 3 MG TABLET PO SCH ×2 (09:17→16:28)
[2017-05-28] MEDS: DiphenhydrAMINE HCL 25 MG CAPSULE PO SCH ×2 (09:17→16:28)
[2017-05-28] MEDS: BENZTROPINE MESYLATE 1 MG TABLET PO SCH ×2 (09:17→16:28)
[2017-05-28] MEDS: DIVALPROEX SODIUM 250 MG DR TABLET PO SCH ×2 (09:17→16:29)
[2017-05-28] MEDS: DOCUSATE SODIUM 100 MG CAPSULE PO SCH ×2 (09:18→16:28)
[2017-05-28] MEDS: PALIPERIDONE 6 MG ER TABLET PO SCH ×2 (09:18→16:28)
[2017-05-28] MEDS: LORazepam 2 MG TABLET PO PRN (13:44)
[2017-05-28 16:00] VITALS: BP 133/84
[2017-05-28] MEDS: TraZODone HCL 100 MG TABLET PO SCH (20:52)
[2017-05-29] MEDS: LEVOTHYROXINE SODIUM 75 MCG TABLET PO SCH (06:21)
[2017-05-29] MEDS: PANTOPRAZOLE SODIUM 40 MG DR TABLET PO SCH (06:21)
[2017-05-29 08:02] VITALS: BP 109/73
[2017-05-29] MEDS: PALIPERIDONE 6 MG ER TABLET PO SCH ×2 (09:02→17:10)
[2017-05-29] MEDS: DIVALPROEX SODIUM 250 MG DR TABLET PO SCH ×2 (09:02→17:09)
[2017-05-29] MEDS: RisperiDONE 3 MG TABLET PO SCH ×2 (09:02→17:09)
[2017-05-29] MEDS: BENZTROPINE MESYLATE 1 MG TABLET PO SCH ×2 (09:02→17:09)
[2017-05-29] MEDS: DOCUSATE SODIUM 100 MG CAPSULE PO SCH ×2 (09:03→17:09)
[2017-05-29] MEDS: DiphenhydrAMINE HCL 25 MG CAPSULE PO SCH ×2 (09:03→17:09)
[2017-05-29] MEDS: NICOTINE 21 MG/24 HOUR PATCH TD SCH (09:04)
[2017-05-29 17:00] VITALS: BP 112/73
[2017-05-29] MEDS: LORazepam 2 MG TABLET PO PRN (17:09)
[2017-05-29] MEDS: TraZODone HCL 100 MG TABLET PO SCH (20:37)
[2017-05-30] MEDS: PANTOPRAZOLE SODIUM 40 MG DR TABLET PO SCH (06:43)
[2017-05-30] MEDS: LEVOTHYROXINE SODIUM 75 MCG TABLET PO SCH (06:43)
[2017-05-30] MEDS: NICOTINE 21 MG/24 HOUR PATCH TD SCH (09:00)
[2017-05-30] MEDS: BENZTROPINE MESYLATE 1 MG TABLET PO SCH ×2 (10:26→16:15)
[2017-05-30] MEDS: DOCUSATE SODIUM 100 MG CAPSULE PO SCH ×2 (10:28→16:15)
[2017-05-30] MEDS: RisperiDONE 3 MG TABLET PO SCH ×2 (10:28→16:15)
[2017-05-30] MEDS: DiphenhydrAMINE HCL 25 MG CAPSULE PO SCH ×2 (10:28→16:14)
[2017-05-30] MEDS: PALIPERIDONE 6 MG ER TABLET PO SCH ×2 (10:29→16:15)
[2017-05-30] MEDS: DIVALPROEX SODIUM 250 MG DR TABLET PO SCH ×2 (10:29→16:15)
[2017-05-30] MEDS: PALIPERIDONE PALMITATE 234 MG/1.5 ML SYRINGE IM SCH (10:38)
[2017-05-30] MEDS: HALOPERIDOL 5 MG TABLET PO PRN (13:19)
[2017-05-30] MEDS: LORazepam 2 MG TABLET PO PRN (13:19)
[2017-05-30] MEDS: TraZODone HCL 100 MG TABLET PO SCH (20:20)
[2017-05-31] MEDS: LEVOTHYROXINE SODIUM 75 MCG TABLET PO SCH (07:03)
[2017-05-31] MEDS: PANTOPRAZOLE SODIUM 40 MG DR TABLET PO SCH (07:03)
[2017-05-31] MEDS: NICOTINE 21 MG/24 HOUR PATCH TD SCH (09:00)
[2017-05-31] MEDS: DOCUSATE SODIUM 100 MG CAPSULE PO SCH ×2 (09:00→16:27)
[2017-05-31] MEDS: DiphenhydrAMINE HCL 25 MG CAPSULE PO SCH ×2 (09:41→16:26)
[2017-05-31] MEDS: BENZTROPINE MESYLATE 1 MG TABLET PO SCH ×2 (09:41→16:27)
[2017-05-31] MEDS: DIVALPROEX SODIUM 250 MG DR TABLET PO SCH ×2 (09:42→16:26)
[2017-05-31] MEDS: RisperiDONE 3 MG TABLET PO SCH ×2 (09:46→16:27)
[2017-05-31] MEDS: PALIPERIDONE 6 MG ER TABLET PO SCH ×2 (09:46→16:25)
[2017-05-31] MEDS: HALOPERIDOL 5 MG TABLET PO PRN ×2 (13:15→17:16)
[2017-05-31] MEDS: LORazepam 2 MG TABLET PO PRN (17:16)
[2017-05-31 18:13] VITALS: BP 117/71
[2017-05-31] MEDS: TraZODone HCL 100 MG TABLET PO SCH (21:13)
[2017-05-31] MEDS: ZOLPIDEM TARTRATE 10 MG TABLET PO PRN (21:13)
[2017-06-01] MEDS: LEVOTHYROXINE SODIUM 75 MCG TABLET PO SCH (06:37)
[2017-06-01] MEDS: PANTOPRAZOLE SODIUM 40 MG DR TABLET PO SCH (06:37)
[2017-06-01] MEDS: NICOTINE 21 MG/24 HOUR PATCH TD SCH (09:00)
[2017-06-01] MEDS: DOCUSATE SODIUM 100 MG CAPSULE PO SCH ×2 (09:00→16:20)
[2017-06-01] MEDS: BENZTROPINE MESYLATE 1 MG TABLET PO SCH ×2 (09:25→16:20)
[2017-06-01] MEDS: DiphenhydrAMINE HCL 25 MG CAPSULE PO SCH ×2 (09:25→16:21)
[2017-06-01] MEDS: RisperiDONE 3 MG TABLET PO SCH ×2 (09:25→16:20)
[2017-06-01] MEDS: PALIPERIDONE 6 MG ER TABLET PO SCH ×2 (09:25→16:20)
[2017-06-01] MEDS: DIVALPROEX SODIUM 250 MG DR TABLET PO SCH ×2 (09:25→16:19)
[2017-06-01 09:42] VITALS: BP 125/68
[2017-06-01] MEDS: HALOPERIDOL 5 MG TABLET PO PRN ×2 (12:19→16:38)
[2017-06-01] MEDS: LORazepam 2 MG TABLET PO PRN ×2 (12:19→16:38)
[2017-06-01 17:21] VITALS: BP 119/64
[2017-06-01] MEDS: TraZODone HCL 100 MG TABLET PO SCH (20:46)
[2017-06-01] MEDS: ZOLPIDEM TARTRATE 10 MG TABLET PO PRN (20:46)
[2017-06-02] MEDS: PANTOPRAZOLE SODIUM 40 MG DR TABLET PO SCH (07:09)
[2017-06-02] MEDS: LEVOTHYROXINE SODIUM 75 MCG TABLET PO SCH (07:09)
[2017-06-02] MEDS: NICOTINE 21 MG/24 HOUR PATCH TD SCH (09:00)
[2017-06-02] MEDS: DiphenhydrAMINE HCL 25 MG CAPSULE PO SCH ×2 (10:27→16:10)
[2017-06-02] MEDS: BENZTROPINE MESYLATE 1 MG TABLET PO SCH (10:28)
[2017-06-02] MEDS: PALIPERIDONE 6 MG ER TABLET PO SCH ×2 (10:30→16:11)
[2017-06-02] MEDS: RisperiDONE 3 MG TABLET PO SCH ×2 (10:30→16:11)
[2017-06-02] MEDS: DOCUSATE SODIUM 100 MG CAPSULE PO SCH ×2 (10:30→16:11)
[2017-06-02] MEDS: DIVALPROEX SODIUM 250 MG DR TABLET PO SCH ×2 (10:30→16:12)
[2017-06-02 12:25] VITALS: BP 115/70
[2017-06-02] MEDS: LORazepam 2 MG TABLET PO PRN ×2 (12:38→18:42)
[2017-06-02] MEDS: BENZTROPINE MESYLATE 2 MG TABLET PO SCH (16:11)
[2017-06-02 17:00] VITALS: BP 117/75
[2017-06-02] MEDS: HALOPERIDOL 5 MG TABLET PO PRN (18:42)
[2017-06-02] MEDS: TraZODone HCL 100 MG TABLET PO SCH (20:24)
[2017-06-02] MEDS: ZOLPIDEM TARTRATE 10 MG TABLET PO PRN (20:46)
[2017-06-03 06:52] LABS: BASOPHILS % (AUTO) 0.3 % (0.0-2.0); EOSINOPHILS % (AUTO) 0.4 % (1.0-6.0); HEMOGLOBIN 14.2 g/dL (12.0-16.0); LYMPHOCYTES # (AUTO) 1.7 K/uL (1.0-4.8); LYMPHOCYTES % (AUTO) 52.2 % (22.0-44.0); MEAN CORPUSCULAR HEMOGLOBIN 31.1 pg (26.0-34.0); MEAN CORPUSCULAR HGB CONC 34.6 G/dL (31.0-37.0); MEAN CORPUSCULAR VOLUME 90 fL (80-100); MONOCYTES # (AUTO) 0.4 K/uL (0.1-1.0); MONOCYTES % (AUTO) 13.2 % (2.0-9.0); NEUTROPHILS # (AUTO) 1.1 K/uL (1.8-7.7); NEUTROPHILS % (AUTO) 33.9 % (40.0-70.0); PLATELET COUNT (AUTO) 106 K/uL (150-450); RED BLOOD CELL COUNT(AUTO) 4.56 MIL/uL (4.00-5.20); RED CELL DISTRIBUTION WIDTH 15.6 % (11.5-14.5)
[2017-06-03] MEDS: LEVOTHYROXINE SODIUM 75 MCG TABLET PO SCH (06:54)
[2017-06-03] MEDS: PANTOPRAZOLE SODIUM 40 MG DR TABLET PO SCH (06:54)
[2017-06-03] MEDS: PALIPERIDONE 6 MG ER TABLET PO SCH ×2 (07:57→16:56)
[2017-06-03] MEDS: DiphenhydrAMINE HCL 25 MG CAPSULE PO SCH ×2 (07:57→16:56)
[2017-06-03] MEDS: RisperiDONE 3 MG TABLET PO SCH ×2 (07:58→16:57)
[2017-06-03] MEDS: DOCUSATE SODIUM 100 MG CAPSULE PO SCH ×2 (07:58→16:56)
[2017-06-03] MEDS: NICOTINE 21 MG/24 HOUR PATCH TD SCH (07:58)
[2017-06-03] MEDS: DIVALPROEX SODIUM 250 MG DR TABLET PO SCH ×2 (07:58→16:56)
[2017-06-03] MEDS: BENZTROPINE MESYLATE 2 MG TABLET PO SCH ×2 (07:58→16:56)
[2017-06-03 12:56] VITALS: BP 114/78
[2017-06-03 16:39] VITALS: BP 117/76
[2017-06-03] MEDS: LORazepam 2 MG TABLET PO PRN (16:56)
[2017-06-03] MEDS: TraZODone HCL 100 MG TABLET PO SCH (21:12)
[2017-06-04] MEDS: PANTOPRAZOLE SODIUM 40 MG DR TABLET PO SCH (06:55)
[2017-06-04] MEDS: LEVOTHYROXINE SODIUM 75 MCG TABLET PO SCH (06:55)
[2017-06-04] MEDS: NICOTINE 21 MG/24 HOUR PATCH TD SCH (09:00)
[2017-06-04] MEDS: DiphenhydrAMINE HCL 25 MG CAPSULE PO SCH ×2 (09:58→17:59)
[2017-06-04] MEDS: DOCUSATE SODIUM 100 MG CAPSULE PO SCH ×2 (09:58→17:59)
[2017-06-04] MEDS: BENZTROPINE MESYLATE 2 MG TABLET PO SCH ×2 (09:58→17:59)
[2017-06-04] MEDS: RisperiDONE 3 MG TABLET PO SCH ×2 (09:59→18:00)
[2017-06-04] MEDS: DIVALPROEX SODIUM 250 MG DR TABLET PO SCH ×2 (09:59→17:59)
[2017-06-04] MEDS: PALIPERIDONE 6 MG ER TABLET PO SCH ×2 (10:00→18:00)
[2017-06-04 12:09] LABS: ALBUMIN 3.6 g/dL (3.4-5.0); BILIRUBIN,TOTAL 0.4 mg/dL (0.1-1.0); CALCIUM, TOTAL 9.2 mg/dL (8.8-10.5); CHOL/HDL RATIO 2.3 (3.9-5.7); CREATININE 1.01 mg/dL (0.60-1.30); POTASSIUM 3.8 mmol/L (3.5-5.1); TOTAL PROTEIN, SERUM 6.4 g/dL (6.4-8.2)
[2017-06-04 13:30] VITALS: BP 114/75
[2017-06-04] MEDS: LORazepam 2 MG TABLET PO PRN ×2 (14:24→19:28)
[2017-06-04] MEDS: HALOPERIDOL 5 MG TABLET PO PRN (19:28)
[2017-06-04] MEDS: TraZODone HCL 100 MG TABLET PO SCH (20:28)
[2017-06-05] MEDS: LEVOTHYROXINE SODIUM 75 MCG TABLET PO SCH (06:55)
[2017-06-05] MEDS: PANTOPRAZOLE SODIUM 40 MG DR TABLET PO SCH (06:55)
[2017-06-05] MEDS: DiphenhydrAMINE HCL 25 MG CAPSULE PO SCH ×2 (09:00→16:33)
[2017-06-05] MEDS: NICOTINE 21 MG/24 HOUR PATCH TD SCH (09:00)
[2017-06-05] MEDS: DIVALPROEX SODIUM 250 MG DR TABLET PO SCH ×2 (10:45→16:34)
[2017-06-05] MEDS: BENZTROPINE MESYLATE 2 MG TABLET PO SCH ×2 (10:45→16:34)
[2017-06-05] MEDS: PALIPERIDONE 6 MG ER TABLET PO SCH ×2 (10:46→16:35)
[2017-06-05] MEDS: RisperiDONE 3 MG TABLET PO SCH ×2 (10:46→16:35)
[2017-06-05] MEDS: DOCUSATE SODIUM 100 MG CAPSULE PO SCH ×2 (10:46→16:34)
[2017-06-05 11:00] VITALS: BP 104/62
[2017-06-05] MEDS: HALOPERIDOL 5 MG TABLET PO PRN (14:33)
[2017-06-05] MEDS: LORazepam 2 MG TABLET PO PRN (15:25)
[2017-06-05 16:05] VITALS: BP 101/67
[2017-06-05] MEDS: TraZODone HCL 100 MG TABLET PO SCH (21:08)
[2017-06-06] MEDS: PANTOPRAZOLE SODIUM 40 MG DR TABLET PO SCH (06:51)
[2017-06-06] MEDS: LEVOTHYROXINE SODIUM 75 MCG TABLET PO SCH (06:51)
[2017-06-06 08:32] VITALS: BP 114/70
[2017-06-06] MEDS: NICOTINE 21 MG/24 HOUR PATCH TD SCH (09:00)
[2017-06-06] MEDS: DIVALPROEX SODIUM 250 MG DR TABLET PO SCH ×2 (09:02→17:21)
[2017-06-06] MEDS: BENZTROPINE MESYLATE 2 MG TABLET PO SCH ×2 (09:02→17:21)
[2017-06-06] MEDS: DOCUSATE SODIUM 100 MG CAPSULE PO SCH ×2 (09:03→17:21)
[2017-06-06] MEDS: DiphenhydrAMINE HCL 25 MG CAPSULE PO SCH ×2 (09:04→17:21)
[2017-06-06] MEDS: PALIPERIDONE 6 MG ER TABLET PO SCH ×2 (09:05→17:21)
[2017-06-06] MEDS: RisperiDONE 3 MG TABLET PO SCH ×2 (09:06→17:21)
[2017-06-06] MEDS: HALOPERIDOL 5 MG TABLET PO PRN ×2 (11:03→15:05)
[2017-06-06] MEDS: LORazepam 2 MG TABLET PO PRN ×2 (11:03→15:05)
[2017-06-06 16:00] VITALS: BP 102/67
[2017-06-06 19:30] VITALS: BP 109/69
[2017-06-06 19:45] VITALS: BP 111/75
[2017-06-06 20:00] VITALS: BP 105/66
[2017-06-06] MEDS: TraZODone HCL 100 MG TABLET PO SCH (22:14)
[2017-06-06 22:35] VITALS: BP 109/69
[2017-06-07 01:14] VITALS: BP 104/55
[2017-06-07] MEDS: LEVOTHYROXINE SODIUM 75 MCG TABLET PO SCH (06:56)
[2017-06-07] MEDS: PANTOPRAZOLE SODIUM 40 MG DR TABLET PO SCH (06:56)
[2017-06-07] MEDS: RisperiDONE 3 MG TABLET PO SCH ×2 (08:09→17:18)
[2017-06-07] MEDS: DIVALPROEX SODIUM 250 MG DR TABLET PO SCH ×2 (08:10→17:17)
[2017-06-07] MEDS: HALOPERIDOL 5 MG TABLET PO PRN (08:10)
[2017-06-07] MEDS: DOCUSATE SODIUM 100 MG CAPSULE PO SCH ×2 (08:10→17:18)
[2017-06-07] MEDS: PALIPERIDONE 6 MG ER TABLET PO SCH ×2 (08:10→17:18)
[2017-06-07] MEDS: BENZTROPINE MESYLATE 2 MG TABLET PO SCH ×2 (08:10→17:18)
[2017-06-07] MEDS: DiphenhydrAMINE HCL 25 MG CAPSULE PO SCH ×2 (08:10→17:00)
[2017-06-07] MEDS: LORazepam 2 MG TABLET PO PRN ×2 (08:10→23:35)
[2017-06-07] MEDS: NICOTINE 21 MG/24 HOUR PATCH TD SCH (09:00)
[2017-06-07] MEDS: TraZODone HCL 100 MG TABLET PO SCH (20:04)
[2017-06-07] MEDS: ZOLPIDEM TARTRATE 10 MG TABLET PO PRN (23:35)
[2017-06-08] VITALS: BP 101/50
[2017-06-08] MEDS: LEVOTHYROXINE SODIUM 75 MCG TABLET PO SCH (07:02)
[2017-06-08] MEDS: PANTOPRAZOLE SODIUM 40 MG DR TABLET PO SCH (07:02)
[2017-06-08] MEDS: NICOTINE 21 MG/24 HOUR PATCH TD SCH (09:00)
[2017-06-08] MEDS: BENZTROPINE MESYLATE 2 MG TABLET PO SCH ×2 (11:00→16:37)
[2017-06-08] MEDS: DOCUSATE SODIUM 100 MG CAPSULE PO SCH ×2 (11:00→16:38)
[2017-06-08] MEDS: RisperiDONE 3 MG TABLET PO SCH ×2 (11:00→16:38)
[2017-06-08] MEDS: DIVALPROEX SODIUM 250 MG DR TABLET PO SCH ×2 (11:00→16:37)
[2017-06-08] MEDS: PALIPERIDONE 6 MG ER TABLET PO SCH ×2 (11:01→16:38)
[2017-06-08] MEDS: TraZODone HCL 100 MG TABLET PO SCH (20:36)
[2017-06-09] MEDS: HALOPERIDOL 5 MG TABLET PO PRN
[2017-06-09 05:52] VITALS: BP 105/50
[2017-06-09] MEDS: LEVOTHYROXINE SODIUM 75 MCG TABLET PO SCH (07:00)
[2017-06-09] MEDS: PANTOPRAZOLE SODIUM 40 MG DR TABLET PO SCH (07:00)
[2017-06-09] MEDS: PALIPERIDONE 6 MG ER TABLET PO SCH ×2 (08:41→16:32)
[2017-06-09] MEDS: BENZTROPINE MESYLATE 2 MG TABLET PO SCH ×2 (08:41→16:32)
[2017-06-09] MEDS: DIVALPROEX SODIUM 250 MG DR TABLET PO SCH ×2 (08:41→16:31)
[2017-06-09] MEDS: DOCUSATE SODIUM 100 MG CAPSULE PO SCH ×2 (08:41→16:32)
[2017-06-09] MEDS: RisperiDONE 3 MG TABLET PO SCH ×2 (08:41→16:32)
[2017-06-09] MEDS: NICOTINE 21 MG/24 HOUR PATCH TD SCH (09:00)
[2017-06-09 10:48] VITALS: BP 102/72
[2017-06-09] MEDS: TraZODone HCL 100 MG TABLET PO SCH (20:12)
[2017-06-09] MEDS: ZOLPIDEM TARTRATE 10 MG TABLET PO PRN ×2 (23:08)
[2017-06-10 00:20] VITALS: BP 107/64
[2017-06-10] MEDS: HALOPERIDOL 5 MG TABLET PO PRN ×3 (00:32→23:43)
[2017-06-10] MEDS: LEVOTHYROXINE SODIUM 75 MCG TABLET PO SCH (06:44)
[2017-06-10] MEDS: PANTOPRAZOLE SODIUM 40 MG DR TABLET PO SCH (06:44)
[2017-06-10] MEDS: NICOTINE 21 MG/24 HOUR PATCH TD SCH ×2 (09:00→11:30)
[2017-06-10 09:50] VITALS: BP 134/64
[2017-06-10] MEDS: PALIPERIDONE 6 MG ER TABLET PO SCH ×2 (09:54→17:04)
[2017-06-10] MEDS: DOCUSATE SODIUM 100 MG CAPSULE PO SCH ×2 (09:54→17:03)
[2017-06-10] MEDS: RisperiDONE 3 MG TABLET PO SCH ×2 (09:54→17:03)
[2017-06-10] MEDS: BENZTROPINE MESYLATE 2 MG TABLET PO SCH ×2 (09:54→17:03)
[2017-06-10] MEDS: DIVALPROEX SODIUM 250 MG DR TABLET PO SCH ×2 (09:55→17:03)
[2017-06-10] MEDS: LORazepam 1 MG TABLET PO PRN ×2 (10:56→17:06)
[2017-06-10 16:00] VITALS: BP 104/77
[2017-06-10] MEDS: TraZODone HCL 100 MG TABLET PO SCH (20:32)
[2017-06-10] MEDS: ZOLPIDEM TARTRATE 10 MG TABLET PO PRN (23:43)
[2017-06-11 00:33] VITALS: BP 145/78
[2017-06-11] MEDS: LEVOTHYROXINE SODIUM 75 MCG TABLET PO SCH (07:00)
[2017-06-11] MEDS: PANTOPRAZOLE SODIUM 40 MG DR TABLET PO SCH (07:00)
[2017-06-11] MEDS: DIVALPROEX SODIUM 250 MG DR TABLET PO SCH ×2 (10:28→16:21)
[2017-06-11] MEDS: DOCUSATE SODIUM 100 MG CAPSULE PO SCH ×2 (10:28→16:21)
[2017-06-11] MEDS: BENZTROPINE MESYLATE 2 MG TABLET PO SCH ×2 (10:28→16:21)
[2017-06-11] MEDS: RisperiDONE 3 MG TABLET PO SCH ×2 (10:28→16:21)
[2017-06-11] MEDS: PALIPERIDONE 6 MG ER TABLET PO SCH ×2 (10:28→16:22)
[2017-06-11] MEDS: TraZODone HCL 100 MG TABLET PO SCH (20:12)
[2017-06-12] MEDS: LEVOTHYROXINE SODIUM 75 MCG TABLET PO SCH (06:38)
[2017-06-12] MEDS: PANTOPRAZOLE SODIUM 40 MG DR TABLET PO SCH (06:38)
[2017-06-12] MEDS: NICOTINE 21 MG/24 HOUR PATCH TD SCH (09:00)
[2017-06-12] MEDS: BENZTROPINE MESYLATE 2 MG TABLET PO SCH ×2 (10:22→17:43)
[2017-06-12] MEDS: PALIPERIDONE 6 MG ER TABLET PO SCH ×2 (10:22→17:43)
[2017-06-12] MEDS: DOCUSATE SODIUM 100 MG CAPSULE PO SCH ×2 (10:22→17:43)
[2017-06-12] MEDS: DIVALPROEX SODIUM 250 MG DR TABLET PO SCH ×2 (10:22→17:43)
[2017-06-12] MEDS: RisperiDONE 3 MG TABLET PO SCH ×2 (10:22→17:44)
[2017-06-12 13:50] VITALS: BP 138/78
[2017-06-12 16:35] VITALS: BP 98/69
[2017-06-12] MEDS: TraZODone HCL 100 MG TABLET PO SCH (20:06)
[2017-06-12] MEDS: HALOPERIDOL 5 MG TABLET PO PRN (20:18)
[2017-06-12] MEDS: LORazepam 1 MG TABLET PO PRN (20:18)
[2017-06-13] MEDS: LEVOTHYROXINE SODIUM 75 MCG TABLET PO SCH (06:49)
[2017-06-13] MEDS: PANTOPRAZOLE SODIUM 40 MG DR TABLET PO SCH (06:50)
[2017-06-13] MEDS: BENZTROPINE MESYLATE 2 MG TABLET PO SCH ×2 (08:57→16:08)
[2017-06-13] MEDS: RisperiDONE 3 MG TABLET PO SCH ×2 (08:57→16:08)
[2017-06-13] MEDS: PALIPERIDONE 6 MG ER TABLET PO SCH ×2 (08:57→16:08)
[2017-06-13] MEDS: DIVALPROEX SODIUM 250 MG DR TABLET PO SCH ×2 (08:57→16:08)
[2017-06-13] MEDS: DOCUSATE SODIUM 100 MG CAPSULE PO SCH ×2 (08:57→16:08)
[2017-06-13] MEDS: NICOTINE 21 MG/24 HOUR PATCH TD SCH (09:00)
[2017-06-13] MEDS: LORazepam 1 MG TABLET PO PRN (09:41)
[2017-06-13] MEDS: HALOPERIDOL 5 MG TABLET PO PRN (09:41)
[2017-06-13] MEDS: TraZODone HCL 100 MG TABLET PO SCH (20:22)
[2017-06-14] MEDS: PANTOPRAZOLE SODIUM 40 MG DR TABLET PO SCH (06:51)
[2017-06-14] MEDS: LEVOTHYROXINE SODIUM 75 MCG TABLET PO SCH (06:51)
[2017-06-14] MEDS: NICOTINE 21 MG/24 HOUR PATCH TD SCH (09:00)
[2017-06-14] MEDS: RisperiDONE 3 MG TABLET PO SCH ×2 (09:02→16:15)
[2017-06-14] MEDS: PALIPERIDONE 6 MG ER TABLET PO SCH ×2 (09:02→16:15)
[2017-06-14] MEDS: BENZTROPINE MESYLATE 2 MG TABLET PO SCH ×2 (09:02→16:15)
[2017-06-14] MEDS: DIVALPROEX SODIUM 250 MG DR TABLET PO SCH ×2 (09:02→16:14)
[2017-06-14] MEDS: DOCUSATE SODIUM 100 MG CAPSULE PO SCH ×2 (09:02→16:14)
[2017-06-14 10:18] VITALS: BP 124/85
[2017-06-14] MEDS: HALOPERIDOL 5 MG TABLET PO PRN ×2 (10:21→16:54)
[2017-06-14] MEDS: LORazepam 1 MG TABLET PO PRN ×2 (10:21→16:54)
[2017-06-14 17:55] VITALS: BP 118/75
[2017-06-14] MEDS: TraZODone HCL 100 MG TABLET PO SCH (20:03)
[2017-06-14] MEDS: ZOLPIDEM TARTRATE 10 MG TABLET PO PRN (22:11)
[2017-06-15] MEDS: LEVOTHYROXINE SODIUM 75 MCG TABLET PO SCH (06:44)
[2017-06-15] MEDS: PANTOPRAZOLE SODIUM 40 MG DR TABLET PO SCH (06:44)
[2017-06-15] MEDS: NICOTINE 21 MG/24 HOUR PATCH TD SCH (09:00)
[2017-06-15] MEDS: DOCUSATE SODIUM 100 MG CAPSULE PO SCH ×2 (09:23→16:38)
[2017-06-15] MEDS: BENZTROPINE MESYLATE 2 MG TABLET PO SCH ×2 (09:23→16:38)
[2017-06-15] MEDS: DIVALPROEX SODIUM 250 MG DR TABLET PO SCH ×2 (09:24→16:39)
[2017-06-15] MEDS: PALIPERIDONE 6 MG ER TABLET PO SCH ×2 (09:24→16:38)
[2017-06-15] MEDS: RisperiDONE 3 MG TABLET PO SCH ×2 (09:24→16:38)
[2017-06-15 10:20] VITALS: BP 103/64
[2017-06-15 17:10] VITALS: BP 114/62
[2017-06-15] MEDS: TraZODone HCL 100 MG TABLET PO SCH (20:07)
[2017-06-15] MEDS: HALOPERIDOL 5 MG TABLET PO PRN (20:42)
[2017-06-15] MEDS: ZOLPIDEM TARTRATE 10 MG TABLET PO PRN (20:53)
[2017-06-16 05:27] VITALS: BP 99/77
[2017-06-16] MEDS: LEVOTHYROXINE SODIUM 75 MCG TABLET PO SCH ×2 (07:00→09:07)
[2017-06-16] MEDS: PANTOPRAZOLE SODIUM 40 MG DR TABLET PO SCH ×2 (07:00→09:07)
[2017-06-16] MEDS: NICOTINE 21 MG/24 HOUR PATCH TD SCH (09:00)
[2017-06-16] MEDS: DIVALPROEX SODIUM 250 MG DR TABLET PO SCH ×2 (09:03→16:37)
[2017-06-16] MEDS: BENZTROPINE MESYLATE 2 MG TABLET PO SCH ×2 (09:03→16:37)
[2017-06-16] MEDS: DOCUSATE SODIUM 100 MG CAPSULE PO SCH ×2 (09:03→16:37)
[2017-06-16] MEDS: PALIPERIDONE 6 MG ER TABLET PO SCH ×2 (09:04→16:37)
[2017-06-16] MEDS: RisperiDONE 3 MG TABLET PO SCH ×2 (09:08→16:37)
[2017-06-16 09:58] VITALS: BP 105/64
[2017-06-16] MEDS: LORazepam 1 MG TABLET PO PRN (16:37)
[2017-06-16] MEDS: TraZODone HCL 100 MG TABLET PO SCH (20:31)
[2017-06-17] MEDS: PANTOPRAZOLE SODIUM 40 MG DR TABLET PO SCH (06:52)
[2017-06-17] MEDS: LEVOTHYROXINE SODIUM 75 MCG TABLET PO SCH (06:52)
[2017-06-17 07:11] LABS: BASOPHILS % (AUTO) 0.5 % (0.0-2.0); EOSINOPHILS % (AUTO) 0.4 % (1.0-6.0); HEMATOCRIT 40.1 % (36-46); HEMOGLOBIN 13.6 g/dL (12.0-16.0); LYMPHOCYTES # (AUTO) 1.7 K/uL (1.0-4.8); LYMPHOCYTES % (AUTO) 55.4 % (22.0-44.0); MEAN CORPUSCULAR HEMOGLOBIN 31.2 pg (26.0-34.0); MEAN CORPUSCULAR VOLUME 92 fL (80-100); MONOCYTES # (AUTO) 0.4 K/uL (0.1-1.0); MONOCYTES % (AUTO) 12.9 % (2.0-9.0); NEUTROPHILS # (AUTO) 0.9 K/uL (1.8-7.7); NEUTROPHILS % (AUTO) 30.8 % (40.0-70.0); RED BLOOD CELL COUNT(AUTO) 4.38 MIL/uL (4.00-5.20); RED CELL DISTRIBUTION WIDTH 16.6 % (11.5-14.5)
[2017-06-17 07:32] LABS: BILIRUBIN,TOTAL 0.4 mg/dL (0.1-1.0); CALCIUM, TOTAL 9.3 mg/dL (8.8-10.5); CREATININE 1.08 mg/dL (0.60-1.30); POTASSIUM 4.5 mmol/L (3.5-5.1); TOTAL PROTEIN, SERUM 5.8 g/dL (6.4-8.2)
[2017-06-17] MEDS: RisperiDONE 3 MG TABLET PO SCH ×2 (08:03→17:25)
[2017-06-17] MEDS: BENZTROPINE MESYLATE 2 MG TABLET PO SCH ×2 (08:03→17:25)
[2017-06-17] MEDS: DIVALPROEX SODIUM 250 MG DR TABLET PO SCH ×2 (08:03→17:25)
[2017-06-17] MEDS: DOCUSATE SODIUM 100 MG CAPSULE PO SCH ×2 (08:03→17:25)
[2017-06-17] MEDS: PALIPERIDONE 6 MG ER TABLET PO SCH ×2 (08:03→17:25)
[2017-06-17] MEDS: NICOTINE 21 MG/24 HOUR PATCH TD SCH (08:03)
[2017-06-17 08:11] LABS: PLATELET COUNT (AUTO) 68 K/uL (150-450)
[2017-06-17 16:00] VITALS: BP 135/71
[2017-06-17] MEDS: TraZODone HCL 100 MG TABLET PO SCH (20:07)
[2017-06-17] MEDS: ZOLPIDEM TARTRATE 10 MG TABLET PO PRN (20:45)
[2017-06-18] MEDS: LEVOTHYROXINE SODIUM 75 MCG TABLET PO SCH (06:59)
[2017-06-18] MEDS: PANTOPRAZOLE SODIUM 40 MG DR TABLET PO SCH (06:59)
[2017-06-18] MEDS: BENZTROPINE MESYLATE 2 MG TABLET PO SCH ×2 (08:23→16:26)
[2017-06-18] MEDS: PALIPERIDONE 6 MG ER TABLET PO SCH ×2 (08:23→16:26)
[2017-06-18] MEDS: DOCUSATE SODIUM 100 MG CAPSULE PO SCH ×2 (08:23→16:26)
[2017-06-18] MEDS: DIVALPROEX SODIUM 250 MG DR TABLET PO SCH ×2 (08:23→16:26)
[2017-06-18] MEDS: RisperiDONE 3 MG TABLET PO SCH ×2 (08:23→16:26)
[2017-06-18] MEDS: NICOTINE 21 MG/24 HOUR PATCH TD SCH ×2 (08:24→08:36)
[2017-06-18] MEDS: HALOPERIDOL 5 MG TABLET PO PRN (12:42)
[2017-06-18] MEDS: LORazepam 1 MG TABLET PO PRN (12:42)
[2017-06-18 16:00] VITALS: BP 107/75
[2017-06-18] MEDS: TraZODone HCL 100 MG TABLET PO SCH (20:05)
[2017-06-19] MEDS: PANTOPRAZOLE SODIUM 40 MG DR TABLET PO SCH (06:53)
[2017-06-19] MEDS: LEVOTHYROXINE SODIUM 75 MCG TABLET PO SCH (06:53)
[2017-06-19 08:39] VITALS: BP 98/64
[2017-06-19] MEDS: NICOTINE 21 MG/24 HOUR PATCH TD SCH (09:00)
[2017-06-19] MEDS: PALIPERIDONE 6 MG ER TABLET PO SCH ×2 (09:18→18:12)
[2017-06-19] MEDS: DOCUSATE SODIUM 100 MG CAPSULE PO SCH ×2 (09:19→16:18)
[2017-06-19] MEDS: RisperiDONE 3 MG TABLET PO SCH ×2 (09:19→16:18)
[2017-06-19] MEDS: BENZTROPINE MESYLATE 2 MG TABLET PO SCH ×2 (09:19→16:18)
[2017-06-19] MEDS: DIVALPROEX SODIUM 250 MG DR TABLET PO SCH ×2 (09:19→16:18)
[2017-06-19] MEDS: HALOPERIDOL 5 MG TABLET PO PRN ×2 (10:24→14:24)
[2017-06-19] MEDS: LORazepam 1 MG TABLET PO PRN ×2 (10:24→14:24)
[2017-06-19] MEDS: TraZODone HCL 100 MG TABLET PO SCH (20:32)
[2017-06-20] MEDS: LEVOTHYROXINE SODIUM 75 MCG TABLET PO SCH (06:58)
[2017-06-20] MEDS: PANTOPRAZOLE SODIUM 40 MG DR TABLET PO SCH (06:58)
[2017-06-20 08:44] VITALS: BP 134/69
[2017-06-20] MEDS: PALIPERIDONE 6 MG ER TABLET PO SCH ×2 (08:51→18:45)
[2017-06-20] MEDS: DOCUSATE SODIUM 100 MG CAPSULE PO SCH ×2 (08:52→18:45)
[2017-06-20] MEDS: RisperiDONE 3 MG TABLET PO SCH ×2 (08:52→18:45)
[2017-06-20] MEDS: BENZTROPINE MESYLATE 2 MG TABLET PO SCH ×2 (08:52→18:45)
[2017-06-20] MEDS: DIVALPROEX SODIUM 250 MG DR TABLET PO SCH ×2 (08:52→18:45)
[2017-06-20] MEDS: NICOTINE 21 MG/24 HOUR PATCH TD SCH (08:53)
[2017-06-20] MEDS: HALOPERIDOL 5 MG TABLET PO PRN ×3 (08:56→18:45)
[2017-06-20] MEDS: LORazepam 1 MG TABLET PO PRN ×2 (08:57→13:31)
[2017-06-20] MEDS: TraZODone HCL 100 MG TABLET PO SCH (20:59)
[2017-06-21] MEDS: PANTOPRAZOLE SODIUM 40 MG DR TABLET PO SCH (07:01)
[2017-06-21] MEDS: LEVOTHYROXINE SODIUM 75 MCG TABLET PO SCH (07:01)
[2017-06-21 08:00] VITALS: BP 119/62
[2017-06-21] MEDS: NICOTINE 21 MG/24 HOUR PATCH TD SCH (09:00)
[2017-06-21] MEDS: HALOPERIDOL 5 MG TABLET PO PRN ×2 (09:12→13:27)
[2017-06-21] MEDS: LORazepam 1 MG TABLET PO PRN ×2 (09:12→23:37)
[2017-06-21] MEDS: RisperiDONE 3 MG TABLET PO SCH ×2 (09:13→16:27)
[2017-06-21] MEDS: DOCUSATE SODIUM 100 MG CAPSULE PO SCH ×2 (09:13→16:27)
[2017-06-21] MEDS: PALIPERIDONE 6 MG ER TABLET PO SCH ×2 (09:13→18:16)
[2017-06-21] MEDS: BENZTROPINE MESYLATE 2 MG TABLET PO SCH ×2 (09:13→16:26)
[2017-06-21] MEDS: DIVALPROEX SODIUM 250 MG DR TABLET PO SCH ×2 (09:14→16:27)
[2017-06-21] MEDS ORDERED: ONDANSETRON HCL 4 MG TABLET PO PRN (13:30)
[2017-06-21 18:02] VITALS: BP 93/65
[2017-06-21] MEDS: TraZODone HCL 100 MG TABLET PO SCH (20:16)
[2017-06-21] MEDS: ZOLPIDEM TARTRATE 10 MG TABLET PO PRN (23:37)
[2017-06-22] MEDS: LEVOTHYROXINE SODIUM 75 MCG TABLET PO SCH (06:50)
[2017-06-22] MEDS: PANTOPRAZOLE SODIUM 40 MG DR TABLET PO SCH (06:50)
[2017-06-22] MEDS: DIVALPROEX SODIUM 250 MG DR TABLET PO SCH ×2 (07:58→16:35)
[2017-06-22] MEDS: RisperiDONE 3 MG TABLET PO SCH ×2 (07:58→16:35)
[2017-06-22] MEDS: BENZTROPINE MESYLATE 2 MG TABLET PO SCH ×2 (07:58→16:35)
[2017-06-22] MEDS: DOCUSATE SODIUM 100 MG CAPSULE PO SCH ×2 (07:58→16:35)
[2017-06-22] MEDS: PALIPERIDONE 6 MG ER TABLET PO SCH ×2 (07:58→16:35)
[2017-06-22] MEDS: LORazepam 1 MG TABLET PO PRN ×2 (08:02→23:48)
[2017-06-22] MEDS: HALOPERIDOL 5 MG TABLET PO PRN ×2 (08:02→14:07)
[2017-06-22] MEDS: NICOTINE 21 MG/24 HOUR PATCH TD SCH (08:06)
[2017-06-22 08:15] VITALS: BP 121/58
[2017-06-22 17:12] VITALS: BP 95/62
[2017-06-22] MEDS: TraZODone HCL 100 MG TABLET PO SCH (20:07)
[2017-06-22] MEDS: ZOLPIDEM TARTRATE 10 MG TABLET PO PRN (23:48)
[2017-06-23] MEDS: PANTOPRAZOLE SODIUM 40 MG DR TABLET PO SCH (06:50)
[2017-06-23] MEDS: LEVOTHYROXINE SODIUM 75 MCG TABLET PO SCH (06:50)
[2017-06-23 08:20] VITALS: BP 113/91
[2017-06-23] MEDS: PALIPERIDONE 6 MG ER TABLET PO SCH ×2 (08:45→16:29)
[2017-06-23] MEDS: DOCUSATE SODIUM 100 MG CAPSULE PO SCH ×2 (08:47→16:29)
[2017-06-23] MEDS: RisperiDONE 3 MG TABLET PO SCH ×2 (08:47→16:29)
[2017-06-23] MEDS: DIVALPROEX SODIUM 250 MG DR TABLET PO SCH ×2 (08:47→16:29)
[2017-06-23] MEDS: BENZTROPINE MESYLATE 2 MG TABLET PO SCH ×2 (08:47→16:28)
[2017-06-23] MEDS: NICOTINE 21 MG/24 HOUR PATCH TD SCH (08:50)
[2017-06-23] MEDS: LORazepam 1 MG TABLET PO PRN (14:57)
[2017-06-23 16:00] VITALS: BP 112/59
[2017-06-23] MEDS: TraZODone HCL 100 MG TABLET PO SCH (20:17)
[2017-06-24] MEDS: LEVOTHYROXINE SODIUM 75 MCG TABLET PO SCH (07:00)
[2017-06-24] MEDS: PANTOPRAZOLE SODIUM 40 MG DR TABLET PO SCH (07:00)
[2017-06-24 08:00] VITALS: BP 121/96
[2017-06-24] MEDS: RisperiDONE 3 MG TABLET PO SCH ×2 (08:20→16:59)
[2017-06-24] MEDS: BENZTROPINE MESYLATE 2 MG TABLET PO SCH ×2 (08:20→16:59)
[2017-06-24] MEDS: DOCUSATE SODIUM 100 MG CAPSULE PO SCH ×2 (08:21→16:59)
[2017-06-24] MEDS: PALIPERIDONE 6 MG ER TABLET PO SCH ×2 (08:21→16:58)
[2017-06-24] MEDS: DIVALPROEX SODIUM 250 MG DR TABLET PO SCH ×2 (08:21→16:59)
[2017-06-24] MEDS: NICOTINE 21 MG/24 HOUR PATCH TD SCH (08:21)
[2017-06-24 16:00] VITALS: BP 112/78
[2017-06-24] MEDS: LORazepam 1 MG TABLET PO PRN (16:59)
[2017-06-24] MEDS: TraZODone HCL 100 MG TABLET PO SCH (20:56)
[2017-06-25] MEDS: LEVOTHYROXINE SODIUM 75 MCG TABLET PO SCH (06:52)
[2017-06-25] MEDS: PANTOPRAZOLE SODIUM 40 MG DR TABLET PO SCH (06:52)
[2017-06-25 08:00] VITALS: BP 110/64
[2017-06-25] MEDS: NICOTINE 21 MG/24 HOUR PATCH TD SCH (09:00)
[2017-06-25] MEDS: BENZTROPINE MESYLATE 2 MG TABLET PO SCH ×2 (09:48→16:28)
[2017-06-25] MEDS: DIVALPROEX SODIUM 250 MG DR TABLET PO SCH ×2 (09:48→16:39)
[2017-06-25] MEDS: RisperiDONE 3 MG TABLET PO SCH ×2 (09:48→16:28)
[2017-06-25] MEDS: DOCUSATE SODIUM 100 MG CAPSULE PO SCH ×2 (09:49→16:39)
[2017-06-25] MEDS: PALIPERIDONE 6 MG ER TABLET PO SCH ×2 (09:49→16:28)
[2017-06-25] MEDS: HALOPERIDOL 5 MG TABLET PO PRN ×2 (10:30→14:38)
[2017-06-25] MEDS: LORazepam 1 MG TABLET PO PRN (10:30)
[2017-06-25 16:28] VITALS: BP 104/62
[2017-06-25] MEDS: TraZODone HCL 100 MG TABLET PO SCH (20:15)
[2017-06-25] MEDS: ZOLPIDEM TARTRATE 10 MG TABLET PO PRN (20:15)
[2017-06-26] MEDS: PANTOPRAZOLE SODIUM 40 MG DR TABLET PO SCH (06:44)
[2017-06-26] MEDS: LEVOTHYROXINE SODIUM 75 MCG TABLET PO SCH (06:44)
[2017-06-26] MEDS: NICOTINE 21 MG/24 HOUR PATCH TD SCH (09:00)
[2017-06-26] MEDS: BENZTROPINE MESYLATE 2 MG TABLET PO SCH ×2 (09:01→16:16)
[2017-06-26] MEDS: DIVALPROEX SODIUM 250 MG DR TABLET PO SCH ×2 (09:01→16:16)
[2017-06-26] MEDS: RisperiDONE 3 MG TABLET PO SCH ×2 (09:01→16:16)
[2017-06-26] MEDS: DOCUSATE SODIUM 100 MG CAPSULE PO SCH ×2 (09:01→16:16)
[2017-06-26] MEDS: PALIPERIDONE 6 MG ER TABLET PO SCH ×2 (09:01→16:16)
[2017-06-26] MEDS: LORazepam 1 MG TABLET PO PRN ×2 (09:02→17:53)
[2017-06-26] MEDS: HALOPERIDOL 5 MG TABLET PO PRN ×3 (09:02→17:53)
[2017-06-26 16:25] VITALS: BP 121/67
[2017-06-26] MEDS: TraZODone HCL 100 MG TABLET PO SCH (21:04)
[2017-06-27] MEDS: LEVOTHYROXINE SODIUM 75 MCG TABLET PO SCH (06:55)
[2017-06-27] MEDS: PANTOPRAZOLE SODIUM 40 MG DR TABLET PO SCH (06:55)
[2017-06-27] MEDS: RisperiDONE 3 MG TABLET PO SCH ×2 (08:18→16:28)
[2017-06-27] MEDS: BENZTROPINE MESYLATE 2 MG TABLET PO SCH ×2 (08:18→16:28)
[2017-06-27] MEDS: PALIPERIDONE 6 MG ER TABLET PO SCH ×2 (08:18→16:28)
[2017-06-27] MEDS: DIVALPROEX SODIUM 250 MG DR TABLET PO SCH ×2 (08:18→16:29)
[2017-06-27] MEDS: DOCUSATE SODIUM 100 MG CAPSULE PO SCH ×2 (08:18→16:29)
[2017-06-27] MEDS: NICOTINE 21 MG/24 HOUR PATCH TD SCH (09:00)
[2017-06-27] MEDS: HALOPERIDOL 5 MG TABLET PO PRN ×2 (09:52→21:11)
[2017-06-27] MEDS: LORazepam 1 MG TABLET PO PRN (09:52)
[2017-06-27 11:30] VITALS: BP 118/70
[2017-06-27] MEDS: PALIPERIDONE PALMITATE 234 MG/1.5 ML SYRINGE IM SCH (11:42)
[2017-06-27 16:25] VITALS: BP 102/66
[2017-06-27] MEDS: TraZODone HCL 100 MG TABLET PO SCH (20:30)
[2017-06-27] MEDS: ZOLPIDEM TARTRATE 10 MG TABLET PO PRN (20:59)
[2017-06-28] MEDS: LEVOTHYROXINE SODIUM 75 MCG TABLET PO SCH (06:50)
[2017-06-28] MEDS: PANTOPRAZOLE SODIUM 40 MG DR TABLET PO SCH (06:50)
[2017-06-28] MEDS: NICOTINE 21 MG/24 HOUR PATCH TD SCH (09:00)
[2017-06-28 09:39] VITALS: BP 106/64
[2017-06-28] MEDS: PALIPERIDONE 6 MG ER TABLET PO SCH ×2 (09:42→16:18)
[2017-06-28] MEDS: RisperiDONE 3 MG TABLET PO SCH ×2 (09:42→16:18)
[2017-06-28] MEDS: BENZTROPINE MESYLATE 2 MG TABLET PO SCH ×2 (09:42→16:17)
[2017-06-28] MEDS: DOCUSATE SODIUM 100 MG CAPSULE PO SCH ×2 (09:42→16:18)
[2017-06-28] MEDS: DIVALPROEX SODIUM 250 MG DR TABLET PO SCH ×2 (09:43→16:17)
[2017-06-28] MEDS: HALOPERIDOL 5 MG TABLET PO PRN (12:33)
[2017-06-28] MEDS: LORazepam 1 MG TABLET PO PRN (13:16)
[2017-06-28 16:32] VITALS: BP 112/72
[2017-06-28] MEDS: TraZODone HCL 100 MG TABLET PO SCH (20:42)
[2017-06-28] MEDS: ZOLPIDEM TARTRATE 10 MG TABLET PO PRN (21:20)
[2017-06-29] MEDS: LEVOTHYROXINE SODIUM 75 MCG TABLET PO SCH (06:28)
[2017-06-29] MEDS: PANTOPRAZOLE SODIUM 40 MG DR TABLET PO SCH (06:28)
[2017-06-29 08:48] VITALS: BP 105/77
[2017-06-29] MEDS: NICOTINE 21 MG/24 HOUR PATCH TD SCH (09:00)
[2017-06-29] MEDS: DIVALPROEX SODIUM 250 MG DR TABLET PO SCH ×2 (09:01→16:04)
[2017-06-29] MEDS: DOCUSATE SODIUM 100 MG CAPSULE PO SCH ×2 (09:02→16:07)
[2017-06-29] MEDS: BENZTROPINE MESYLATE 2 MG TABLET PO SCH ×2 (09:02→16:04)
[2017-06-29] MEDS: PALIPERIDONE 6 MG ER TABLET PO SCH ×2 (09:03→16:04)
[2017-06-29] MEDS: RisperiDONE 3 MG TABLET PO SCH ×2 (09:03→16:04)
[2017-06-29] MEDS: HALOPERIDOL 5 MG TABLET PO PRN (14:00)
[2017-06-29] MEDS: LORazepam 1 MG TABLET PO PRN (14:59)
[2017-06-29 16:36] VITALS: BP 110/79
[2017-06-29] MEDS: ZOLPIDEM TARTRATE 10 MG TABLET PO PRN (20:31)
[2017-06-29] MEDS: TraZODone HCL 100 MG TABLET PO SCH (20:32)
[2017-06-30] MEDS: LEVOTHYROXINE SODIUM 75 MCG TABLET PO SCH (06:47)
[2017-06-30] MEDS: PANTOPRAZOLE SODIUM 40 MG DR TABLET PO SCH (06:47)
[2017-06-30] MEDS: DIVALPROEX SODIUM 250 MG DR TABLET PO SCH ×2 (08:42→16:42)
[2017-06-30] MEDS: BENZTROPINE MESYLATE 2 MG TABLET PO SCH ×2 (08:42→16:42)
[2017-06-30] MEDS: PALIPERIDONE 6 MG ER TABLET PO SCH ×2 (08:42→16:42)
[2017-06-30] MEDS: DOCUSATE SODIUM 100 MG CAPSULE PO SCH ×2 (08:42→16:42)
[2017-06-30] MEDS: RisperiDONE 3 MG TABLET PO SCH ×2 (08:42→16:42)
[2017-06-30 09:00] VITALS: BP 115/75
[2017-06-30] MEDS: NICOTINE 21 MG/24 HOUR PATCH TD SCH (09:00)
[2017-06-30] MEDS: LORazepam 1 MG TABLET PO PRN ×2 (11:07→19:10)
[2017-06-30] MEDS: HALOPERIDOL 5 MG TABLET PO PRN ×2 (11:07→19:10)
[2017-06-30 16:22] VITALS: BP 106/67
[2017-06-30] MEDS: TraZODone HCL 100 MG TABLET PO SCH (20:13)
[2017-06-30 20:15] VITALS: BP 110/80
[2017-06-30 20:54] VITALS: BP 110/80
[2017-07-01] MEDS: PANTOPRAZOLE SODIUM 40 MG DR TABLET PO SCH (07:01)
[2017-07-01] MEDS: LEVOTHYROXINE SODIUM 75 MCG TABLET PO SCH (07:01)
[2017-07-01] MEDS: NICOTINE 21 MG/24 HOUR PATCH TD SCH (09:00)
[2017-07-01] MEDS: DIVALPROEX SODIUM 250 MG DR TABLET PO SCH ×2 (10:23→18:05)
[2017-07-01] MEDS: DOCUSATE SODIUM 100 MG CAPSULE PO SCH ×2 (10:23→18:05)
[2017-07-01] MEDS: RisperiDONE 3 MG TABLET PO SCH ×2 (10:23→18:05)
[2017-07-01] MEDS: BENZTROPINE MESYLATE 2 MG TABLET PO SCH ×2 (10:23→18:05)
[2017-07-01] MEDS: PALIPERIDONE 6 MG ER TABLET PO SCH ×2 (10:24→18:06)
[2017-07-01 16:00] VITALS: BP 100/76
[2017-07-01] MEDS: LORazepam 1 MG TABLET PO PRN (18:05)
[2017-07-01] MEDS: TraZODone HCL 100 MG TABLET PO SCH (20:11)
[2017-07-02] MEDS: PANTOPRAZOLE SODIUM 40 MG DR TABLET PO SCH (07:01)
[2017-07-02] MEDS: LEVOTHYROXINE SODIUM 75 MCG TABLET PO SCH (07:01)
[2017-07-02] MEDS: NICOTINE 21 MG/24 HOUR PATCH TD SCH (09:00)
[2017-07-02 10:03] VITALS: BP 101/75
[2017-07-02] MEDS: RisperiDONE 3 MG TABLET PO SCH ×2 (10:20→17:15)
[2017-07-02] MEDS: BENZTROPINE MESYLATE 2 MG TABLET PO SCH ×2 (10:20→17:14)
[2017-07-02] MEDS: PALIPERIDONE 6 MG ER TABLET PO SCH ×2 (10:20→17:14)
[2017-07-02] MEDS: DIVALPROEX SODIUM 250 MG DR TABLET PO SCH ×2 (10:20→17:14)
[2017-07-02] MEDS: DOCUSATE SODIUM 100 MG CAPSULE PO SCH ×2 (10:20→17:14)
[2017-07-02] MEDS: HALOPERIDOL 5 MG TABLET PO PRN ×2 (10:28→20:29)
[2017-07-02] MEDS: LORazepam 1 MG TABLET PO PRN ×2 (12:52→20:29)
[2017-07-02 16:14] VITALS: BP 120/67
[2017-07-02] MEDS: TraZODone HCL 100 MG TABLET PO SCH (20:30)
[2017-07-02] MEDS: ZOLPIDEM TARTRATE 10 MG TABLET PO PRN (21:40)
[2017-07-03] MEDS: PANTOPRAZOLE SODIUM 40 MG DR TABLET PO SCH (07:00)
[2017-07-03] MEDS: LEVOTHYROXINE SODIUM 75 MCG TABLET PO SCH (07:00)
[2017-07-03] MEDS: NICOTINE 21 MG/24 HOUR PATCH TD SCH (09:00)
[2017-07-03] MEDS: DOCUSATE SODIUM 100 MG CAPSULE PO SCH ×2 (09:10→15:49)
[2017-07-03] MEDS: BENZTROPINE MESYLATE 2 MG TABLET PO SCH ×2 (09:11→15:49)
[2017-07-03] MEDS: DIVALPROEX SODIUM 250 MG DR TABLET PO SCH ×2 (09:11→15:49)
[2017-07-03] MEDS: RisperiDONE 3 MG TABLET PO SCH ×2 (09:11→15:49)
[2017-07-03] MEDS: PALIPERIDONE 6 MG ER TABLET PO SCH ×2 (09:11→15:49)
[2017-07-03] MEDS: LORazepam 1 MG TABLET PO PRN ×2 (12:31→20:39)
[2017-07-03] MEDS: HALOPERIDOL 5 MG TABLET PO PRN ×3 (13:27→23:38)
[2017-07-03 16:45] VITALS: BP 102/68
[2017-07-03] MEDS: TraZODone HCL 100 MG TABLET PO SCH (20:39)
[2017-07-03] MEDS: ZOLPIDEM TARTRATE 10 MG TABLET PO PRN (23:38)
[2017-07-04] MEDS: PANTOPRAZOLE SODIUM 40 MG DR TABLET PO SCH (06:44)
[2017-07-04] MEDS: LEVOTHYROXINE SODIUM 75 MCG TABLET PO SCH (06:44)
[2017-07-04] MEDS: DOCUSATE SODIUM 100 MG CAPSULE PO SCH ×2 (09:00→16:20)
[2017-07-04] MEDS: NICOTINE 21 MG/24 HOUR PATCH TD SCH (09:00)
[2017-07-04 09:52] VITALS: BP 96/57
[2017-07-04] MEDS: RisperiDONE 3 MG TABLET PO SCH ×2 (09:57→16:20)
[2017-07-04] MEDS: PALIPERIDONE 6 MG ER TABLET PO SCH ×2 (09:57→16:20)
[2017-07-04] MEDS: BENZTROPINE MESYLATE 2 MG TABLET PO SCH ×2 (09:57→16:20)
[2017-07-04] MEDS: DIVALPROEX SODIUM 250 MG DR TABLET PO SCH ×2 (09:57→16:19)
[2017-07-04 12:38] VITALS: BP 106/60
[2017-07-04] MEDS: HALOPERIDOL 5 MG TABLET PO PRN ×2 (12:40→17:20)
[2017-07-04] MEDS: LORazepam 1 MG TABLET PO PRN ×2 (12:40→17:20)
[2017-07-04 17:09] VITALS: BP 130/64
[2017-07-04] MEDS: TraZODone HCL 100 MG TABLET PO SCH (20:08)
[2017-07-04] MEDS: ZOLPIDEM TARTRATE 10 MG TABLET PO PRN (20:48)
[2017-07-05] MEDS: LEVOTHYROXINE SODIUM 75 MCG TABLET PO SCH (06:40)
[2017-07-05] MEDS: PANTOPRAZOLE SODIUM 40 MG DR TABLET PO SCH (06:40)
[2017-07-05] MEDS: NICOTINE 21 MG/24 HOUR PATCH TD SCH (09:00)
[2017-07-05] MEDS: BENZTROPINE MESYLATE 2 MG TABLET PO SCH ×2 (11:04→16:09)
[2017-07-05] MEDS: DOCUSATE SODIUM 100 MG CAPSULE PO SCH ×2 (11:04→16:10)
[2017-07-05] MEDS: DIVALPROEX SODIUM 250 MG DR TABLET PO SCH ×2 (11:04→16:09)
[2017-07-05] MEDS: PALIPERIDONE 6 MG ER TABLET PO SCH ×2 (11:04→16:09)
[2017-07-05] MEDS: RisperiDONE 3 MG TABLET PO SCH ×2 (11:05→16:09)
[2017-07-05] MEDS: LORazepam 1 MG TABLET PO PRN (11:20)
[2017-07-05] MEDS: HALOPERIDOL 5 MG TABLET PO PRN (11:20)
[2017-07-05] MEDS: TraZODone HCL 100 MG TABLET PO SCH (20:13)
[2017-07-06] MEDS: LEVOTHYROXINE SODIUM 75 MCG TABLET PO SCH (06:26)
[2017-07-06] MEDS: PANTOPRAZOLE SODIUM 40 MG DR TABLET PO SCH (06:26)
[2017-07-06] MEDS: NICOTINE 21 MG/24 HOUR PATCH TD SCH (09:00)
[2017-07-06] MEDS: DIVALPROEX SODIUM 250 MG DR TABLET PO SCH ×2 (10:19→16:09)
[2017-07-06] MEDS: PALIPERIDONE 6 MG ER TABLET PO SCH ×2 (10:20→16:09)
[2017-07-06] MEDS: DOCUSATE SODIUM 100 MG CAPSULE PO SCH ×2 (10:20→16:09)
[2017-07-06] MEDS: BENZTROPINE MESYLATE 2 MG TABLET PO SCH ×2 (10:20→16:09)
[2017-07-06] MEDS: RisperiDONE 3 MG TABLET PO SCH ×2 (10:20→16:09)
[2017-07-06 16:22] VITALS: BP 109/64
[2017-07-06] MEDS: HALOPERIDOL 5 MG TABLET PO PRN (16:56)
[2017-07-06] MEDS ORDERED: HALOPERIDOL LACTATE 5 MG/ML VIAL IM ONE (17:30)
[2017-07-06] MEDS ORDERED: DiphenhydrAMINE HCL 50 MG/ML VIAL IM ONE (17:30)
[2017-07-06] MEDS ORDERED: LORazepam 2 MG/ML VIAL IM ONE (17:30)
[2017-07-06] MEDS: TraZODone HCL 100 MG TABLET PO SCH (20:12)
[2017-07-07] MEDS: PANTOPRAZOLE SODIUM 40 MG DR TABLET PO SCH ×2 (06:59→10:48)
[2017-07-07] MEDS: LEVOTHYROXINE SODIUM 75 MCG TABLET PO SCH (06:59)
[2017-07-07 08:16] VITALS: BP 121/69
[2017-07-07] MEDS: PALIPERIDONE 6 MG ER TABLET PO SCH ×2 (10:47→17:27)
[2017-07-07] MEDS: DIVALPROEX SODIUM 250 MG DR TABLET PO SCH ×2 (10:47→17:27)
[2017-07-07] MEDS: DOCUSATE SODIUM 100 MG CAPSULE PO SCH ×2 (10:47→17:27)
[2017-07-07] MEDS: RisperiDONE 3 MG TABLET PO SCH ×2 (10:48→17:28)
[2017-07-07] MEDS: BENZTROPINE MESYLATE 2 MG TABLET PO SCH ×2 (10:48→17:27)
[2017-07-07] MEDS: NICOTINE 21 MG/24 HOUR PATCH TD SCH (10:49)
[2017-07-07 16:00] VITALS: BP 104/62
[2017-07-07] MEDS: TraZODone HCL 100 MG TABLET PO SCH (20:27)
[2017-07-08] MEDS: LEVOTHYROXINE SODIUM 75 MCG TABLET PO SCH ×2 (06:53→07:22)
[2017-07-08] MEDS: NICOTINE 21 MG/24 HOUR PATCH TD SCH (09:00)
[2017-07-08] MEDS: PALIPERIDONE 6 MG ER TABLET PO SCH ×2 (09:35→16:43)
[2017-07-08] MEDS: BENZTROPINE MESYLATE 2 MG TABLET PO SCH ×2 (09:38→16:42)
[2017-07-08] MEDS: RisperiDONE 3 MG TABLET PO SCH ×2 (09:38→16:42)
[2017-07-08] MEDS: DOCUSATE SODIUM 100 MG CAPSULE PO SCH ×2 (09:38→16:42)
[2017-07-08] MEDS: DIVALPROEX SODIUM 250 MG DR TABLET PO SCH ×2 (09:39→16:42)
[2017-07-08 16:00] VITALS: BP 152/75
[2017-07-08] MEDS: LORazepam 1 MG TABLET PO PRN (16:42)
[2017-07-08] MEDS: TraZODone HCL 100 MG TABLET PO SCH (20:47)
[2017-07-09] MEDS: ZOLPIDEM TARTRATE 10 MG TABLET PO PRN
[2017-07-09] MEDS: HALOPERIDOL 5 MG TABLET PO PRN (00:01)
[2017-07-09] MEDS: PANTOPRAZOLE SODIUM 40 MG DR TABLET PO SCH (06:56)
[2017-07-09] MEDS: LEVOTHYROXINE SODIUM 75 MCG TABLET PO SCH (06:56)
[2017-07-09 08:00] VITALS: BP 120/87
[2017-07-09] MEDS: NICOTINE 21 MG/24 HOUR PATCH TD SCH (09:00)
[2017-07-09] MEDS: PALIPERIDONE 6 MG ER TABLET PO SCH ×2 (10:19→17:34)
[2017-07-09] MEDS: BENZTROPINE MESYLATE 2 MG TABLET PO SCH ×2 (10:19→17:33)
[2017-07-09] MEDS: DIVALPROEX SODIUM 250 MG DR TABLET PO SCH ×2 (10:20→17:33)
[2017-07-09] MEDS: RisperiDONE 3 MG TABLET PO SCH ×2 (10:20→17:33)
[2017-07-09] MEDS: DOCUSATE SODIUM 100 MG CAPSULE PO SCH ×2 (10:20→17:33)
[2017-07-09] MEDS: TraZODone HCL 100 MG TABLET PO SCH (20:10)
[2017-07-10] MEDS: HALOPERIDOL 5 MG TABLET PO PRN (00:24)
[2017-07-10] MEDS: ZOLPIDEM TARTRATE 10 MG TABLET PO PRN (00:24)
[2017-07-10] MEDS: PANTOPRAZOLE SODIUM 40 MG DR TABLET PO SCH (06:53)
[2017-07-10] MEDS: LEVOTHYROXINE SODIUM 75 MCG TABLET PO SCH (06:53)
[2017-07-10 08:10] VITALS: BP 116/56
[2017-07-10] MEDS: NICOTINE 21 MG/24 HOUR PATCH TD SCH (09:00)
[2017-07-10] MEDS: BENZTROPINE MESYLATE 2 MG TABLET PO SCH ×2 (09:58→16:53)
[2017-07-10] MEDS: DOCUSATE SODIUM 100 MG CAPSULE PO SCH ×2 (09:59→16:53)
[2017-07-10] MEDS: RisperiDONE 3 MG TABLET PO SCH ×2 (09:59→16:53)
[2017-07-10] MEDS: DIVALPROEX SODIUM 250 MG DR TABLET PO SCH ×2 (09:59→16:53)
[2017-07-10] MEDS: PALIPERIDONE 6 MG ER TABLET PO SCH ×2 (09:59→16:53)
[2017-07-10 16:45] VITALS: BP 116/87
[2017-07-10] MEDS: LORazepam 1 MG TABLET PO PRN (16:53)
[2017-07-10] MEDS: TraZODone HCL 100 MG TABLET PO SCH (20:59)
[2017-07-11] MEDS: HALOPERIDOL 5 MG TABLET PO PRN (00:25)
[2017-07-11] MEDS: ZOLPIDEM TARTRATE 10 MG TABLET PO PRN (00:25)
[2017-07-11 00:27] VITALS: BP 117/72
[2017-07-11] MEDS: PANTOPRAZOLE SODIUM 40 MG DR TABLET PO SCH (07:00)
[2017-07-11] MEDS: LEVOTHYROXINE SODIUM 75 MCG TABLET PO SCH (07:00)
[2017-07-11] MEDS: NICOTINE 21 MG/24 HOUR PATCH TD SCH (09:00)
[2017-07-11] MEDS: BENZTROPINE MESYLATE 2 MG TABLET PO SCH ×2 (09:42→17:37)
[2017-07-11] MEDS: DOCUSATE SODIUM 100 MG CAPSULE PO SCH ×2 (09:42→17:37)
[2017-07-11] MEDS: RisperiDONE 3 MG TABLET PO SCH ×2 (09:42→17:37)
[2017-07-11] MEDS: DIVALPROEX SODIUM 250 MG DR TABLET PO SCH ×2 (09:42→17:37)
[2017-07-11] MEDS: PALIPERIDONE 6 MG ER TABLET PO SCH ×2 (09:43→17:38)
[2017-07-11 16:29] VITALS: BP 112/70
[2017-07-11] MEDS: LORazepam 1 MG TABLET PO PRN (17:37)
[2017-07-11] MEDS: TraZODone HCL 100 MG TABLET PO SCH (20:38)
[2017-07-12] MEDS: HALOPERIDOL 5 MG TABLET PO PRN ×2 (00:09→17:46)
[2017-07-12] MEDS: ZOLPIDEM TARTRATE 10 MG TABLET PO PRN ×2 (00:09→20:31)
[2017-07-12] MEDS: PANTOPRAZOLE SODIUM 40 MG DR TABLET PO SCH (06:52)
[2017-07-12] MEDS: LEVOTHYROXINE SODIUM 75 MCG TABLET PO SCH (06:52)
[2017-07-12] MEDS: NICOTINE 21 MG/24 HOUR PATCH TD SCH (09:00)
[2017-07-12] MEDS: PALIPERIDONE 6 MG ER TABLET PO SCH ×2 (09:22→16:21)
[2017-07-12] MEDS: RisperiDONE 3 MG TABLET PO SCH ×2 (09:22→16:20)
[2017-07-12] MEDS: BENZTROPINE MESYLATE 2 MG TABLET PO SCH ×2 (09:22→16:20)
[2017-07-12] MEDS: DOCUSATE SODIUM 100 MG CAPSULE PO SCH ×2 (09:22→16:20)
[2017-07-12] MEDS: DIVALPROEX SODIUM 250 MG DR TABLET PO SCH ×2 (09:22→16:20)
[2017-07-12 11:36] VITALS: BP 115/76
[2017-07-12 16:57] VITALS: BP 102/63
[2017-07-12] MEDS: LORazepam 1 MG TABLET PO PRN (17:46)
[2017-07-12] MEDS: TraZODone HCL 100 MG TABLET PO SCH (20:31)
[2017-07-13] MEDS: HALOPERIDOL 5 MG TABLET PO PRN ×2 (00:24→21:03)
[2017-07-13] MEDS: PANTOPRAZOLE SODIUM 40 MG DR TABLET PO SCH (06:23)
[2017-07-13] MEDS: LEVOTHYROXINE SODIUM 75 MCG TABLET PO SCH (06:23)
[2017-07-13] MEDS: BENZTROPINE MESYLATE 2 MG TABLET PO SCH ×2 (08:39→16:27)
[2017-07-13] MEDS: NICOTINE 21 MG/24 HOUR PATCH TD SCH (08:39)
[2017-07-13] MEDS: PALIPERIDONE 6 MG ER TABLET PO SCH ×2 (08:39→16:28)
[2017-07-13] MEDS: DOCUSATE SODIUM 100 MG CAPSULE PO SCH ×2 (08:39→16:28)
[2017-07-13] MEDS: RisperiDONE 3 MG TABLET PO SCH ×2 (08:39→16:27)
[2017-07-13] MEDS: DIVALPROEX SODIUM 250 MG DR TABLET PO SCH ×2 (08:40→16:28)
[2017-07-13] MEDS: LORazepam 1 MG TABLET PO PRN (16:28)
[2017-07-13 16:38] VITALS: BP 111/77
[2017-07-13] MEDS: TraZODone HCL 100 MG TABLET PO SCH (20:53)
[2017-07-13] MEDS: ZOLPIDEM TARTRATE 10 MG TABLET PO PRN (21:03)
[2017-07-14] MEDS: LEVOTHYROXINE SODIUM 75 MCG TABLET PO SCH (06:52)
[2017-07-14] MEDS: PANTOPRAZOLE SODIUM 40 MG DR TABLET PO SCH (06:52)
[2017-07-14] MEDS: BENZTROPINE MESYLATE 2 MG TABLET PO SCH ×2 (08:53→16:38)
[2017-07-14] MEDS: DOCUSATE SODIUM 100 MG CAPSULE PO SCH ×2 (08:54→16:37)
[2017-07-14] MEDS: RisperiDONE 3 MG TABLET PO SCH ×2 (08:54→16:38)
[2017-07-14] MEDS: PALIPERIDONE 6 MG ER TABLET PO SCH ×2 (08:54→16:38)
[2017-07-14] MEDS: DIVALPROEX SODIUM 250 MG DR TABLET PO SCH ×2 (08:55→16:37)
[2017-07-14] MEDS: NICOTINE 21 MG/24 HOUR PATCH TD SCH (09:00)
[2017-07-14 09:19] VITALS: BP 101/62
[2017-07-14] MEDS: LORazepam 1 MG TABLET PO PRN ×2 (10:37→20:07)
[2017-07-14] MEDS: HALOPERIDOL 5 MG TABLET PO PRN ×2 (10:37→17:23)
[2017-07-14 17:01] VITALS: BP 104/56
[2017-07-14] MEDS: ZOLPIDEM TARTRATE 10 MG TABLET PO PRN (20:08)
[2017-07-14] MEDS: TraZODone HCL 100 MG TABLET PO SCH (20:09)
[2017-07-15] MEDS: LEVOTHYROXINE SODIUM 75 MCG TABLET PO SCH (06:53)
[2017-07-15] MEDS: PANTOPRAZOLE SODIUM 40 MG DR TABLET PO SCH (06:54)
[2017-07-15] MEDS: NICOTINE 21 MG/24 HOUR PATCH TD SCH (09:00)
[2017-07-15] MEDS: PALIPERIDONE 6 MG ER TABLET PO SCH ×2 (09:17→17:22)
[2017-07-15] MEDS: BENZTROPINE MESYLATE 2 MG TABLET PO SCH ×2 (09:17→17:22)
[2017-07-15] MEDS: RisperiDONE 3 MG TABLET PO SCH ×2 (09:18→17:22)
[2017-07-15] MEDS: DOCUSATE SODIUM 100 MG CAPSULE PO SCH ×2 (09:18→17:22)
[2017-07-15] MEDS: DIVALPROEX SODIUM 250 MG DR TABLET PO SCH ×2 (09:18→17:22)
[2017-07-15] MEDS: LORazepam 1 MG TABLET PO PRN (11:34)
[2017-07-15] MEDS: HALOPERIDOL 5 MG TABLET PO PRN ×2 (11:34→17:22)
[2017-07-15 16:00] VITALS: BP 119/71
[2017-07-15] MEDS: ZOLPIDEM TARTRATE 10 MG TABLET PO PRN (20:02)
[2017-07-15] MEDS: TraZODone HCL 100 MG TABLET PO SCH (20:02)
[2017-07-16] MEDS: LEVOTHYROXINE SODIUM 75 MCG TABLET PO SCH (07:01)
[2017-07-16] MEDS: PANTOPRAZOLE SODIUM 40 MG DR TABLET PO SCH (07:01)
[2017-07-16] MEDS: NICOTINE 21 MG/24 HOUR PATCH TD SCH (09:00)
[2017-07-16] MEDS: BENZTROPINE MESYLATE 2 MG TABLET PO SCH ×2 (09:52→17:43)
[2017-07-16] MEDS: PALIPERIDONE 6 MG ER TABLET PO SCH ×2 (09:53→17:43)
[2017-07-16] MEDS: DOCUSATE SODIUM 100 MG CAPSULE PO SCH ×2 (09:53→17:43)
[2017-07-16] MEDS: DIVALPROEX SODIUM 250 MG DR TABLET PO SCH ×2 (09:53→17:43)
[2017-07-16] MEDS: RisperiDONE 3 MG TABLET PO SCH ×2 (09:53→17:43)
[2017-07-16] MEDS: HALOPERIDOL 5 MG TABLET PO PRN (12:51)
[2017-07-16] MEDS: LORazepam 1 MG TABLET PO PRN (12:51)
[2017-07-16 18:37] VITALS: BP 124/78
[2017-07-16] MEDS: TraZODone HCL 100 MG TABLET PO SCH (20:53)
[2017-07-17] MEDS: LEVOTHYROXINE SODIUM 75 MCG TABLET PO SCH (06:57)
[2017-07-17] MEDS: PANTOPRAZOLE SODIUM 40 MG DR TABLET PO SCH (06:57)
[2017-07-17] MEDS: NICOTINE 21 MG/24 HOUR PATCH TD SCH (09:00)
[2017-07-17] MEDS: BENZTROPINE MESYLATE 2 MG TABLET PO SCH ×2 (09:36→16:00)
[2017-07-17] MEDS: DIVALPROEX SODIUM 250 MG DR TABLET PO SCH ×2 (09:37→16:00)
[2017-07-17] MEDS: PALIPERIDONE 6 MG ER TABLET PO SCH ×2 (09:37→16:01)
[2017-07-17] MEDS: RisperiDONE 3 MG TABLET PO SCH ×2 (09:37→16:00)
[2017-07-17] MEDS: DOCUSATE SODIUM 100 MG CAPSULE PO SCH ×2 (09:38→16:00)
[2017-07-17 09:53] VITALS: BP 103/65
[2017-07-17] MEDS: LORazepam 1 MG TABLET PO PRN ×3 (09:56→20:19)
[2017-07-17] MEDS: HALOPERIDOL 5 MG TABLET PO PRN ×3 (09:56→20:19)
[2017-07-17 16:34] VITALS: BP 115/76
[2017-07-17] MEDS: TraZODone HCL 100 MG TABLET PO SCH (20:20)
[2017-07-18] MEDS: PANTOPRAZOLE SODIUM 40 MG DR TABLET PO SCH (07:05)
[2017-07-18] MEDS: LEVOTHYROXINE SODIUM 75 MCG TABLET PO SCH (07:05)
[2017-07-18] MEDS: NICOTINE 21 MG/24 HOUR PATCH TD SCH (09:00)
[2017-07-18] MEDS: DOCUSATE SODIUM 100 MG CAPSULE PO SCH ×2 (10:18→17:21)
[2017-07-18] MEDS: PALIPERIDONE 6 MG ER TABLET PO SCH ×2 (10:18→17:21)
[2017-07-18] MEDS: DIVALPROEX SODIUM 250 MG DR TABLET PO SCH ×2 (10:18→17:20)
[2017-07-18] MEDS: RisperiDONE 3 MG TABLET PO SCH ×2 (10:19→17:21)
[2017-07-18] MEDS: BENZTROPINE MESYLATE 2 MG TABLET PO SCH ×2 (10:19→17:20)
[2017-07-18 11:20] VITALS: BP 114/64
[2017-07-18] MEDS: HALOPERIDOL 5 MG TABLET PO PRN (11:36)
[2017-07-18] MEDS: LORazepam 1 MG TABLET PO PRN (11:36)
[2017-07-18 12:38] VITALS: BP 104/58
[2017-07-18 16:00] VITALS: BP 103/72
[2017-07-18] MEDS: TraZODone HCL 100 MG TABLET PO SCH (20:03)
[2017-07-19] MEDS: LORazepam 1 MG TABLET PO PRN ×2 (00:02→14:41)
[2017-07-19] MEDS: ZOLPIDEM TARTRATE 10 MG TABLET PO PRN ×2 (00:03→21:02)
[2017-07-19] MEDS: HALOPERIDOL 5 MG TABLET PO PRN ×3 (01:16→20:31)
[2017-07-19] MEDS: LEVOTHYROXINE SODIUM 75 MCG TABLET PO SCH (06:51)
[2017-07-19] MEDS: PANTOPRAZOLE SODIUM 40 MG DR TABLET PO SCH (06:52)
[2017-07-19] MEDS: DIVALPROEX SODIUM 250 MG DR TABLET PO SCH ×2 (08:59→16:59)
[2017-07-19] MEDS: BENZTROPINE MESYLATE 2 MG TABLET PO SCH ×2 (08:59→17:00)
[2017-07-19] MEDS: RisperiDONE 3 MG TABLET PO SCH ×2 (08:59→16:59)
[2017-07-19] MEDS: DOCUSATE SODIUM 100 MG CAPSULE PO SCH ×2 (08:59→16:59)
[2017-07-19] MEDS: PALIPERIDONE 6 MG ER TABLET PO SCH ×2 (08:59→16:59)
[2017-07-19] MEDS: NICOTINE 21 MG/24 HOUR PATCH TD SCH (09:00)
[2017-07-19 16:06] VITALS: BP 109/78
[2017-07-19] MEDS: TraZODone HCL 100 MG TABLET PO SCH (20:32)
[2017-07-20] MEDS: LORazepam 1 MG TABLET PO PRN ×2 (05:15→13:16)
[2017-07-20] MEDS: HALOPERIDOL 5 MG TABLET PO PRN ×2 (05:18→13:16)
[2017-07-20] MEDS: LEVOTHYROXINE SODIUM 75 MCG TABLET PO SCH (07:07)
[2017-07-20] MEDS: PANTOPRAZOLE SODIUM 40 MG DR TABLET PO SCH (07:07)
[2017-07-20] MEDS: DIVALPROEX SODIUM 250 MG DR TABLET PO SCH ×2 (08:14→16:17)
[2017-07-20] MEDS: RisperiDONE 3 MG TABLET PO SCH ×2 (08:14→16:16)
[2017-07-20] MEDS: BENZTROPINE MESYLATE 2 MG TABLET PO SCH ×2 (08:14→16:16)
[2017-07-20] MEDS: DOCUSATE SODIUM 100 MG CAPSULE PO SCH ×2 (08:14→16:17)
[2017-07-20] MEDS: PALIPERIDONE 6 MG ER TABLET PO SCH ×2 (08:15→16:17)
[2017-07-20] MEDS: NICOTINE 21 MG/24 HOUR PATCH TD SCH (09:00)
[2017-07-20 16:08] VITALS: BP 108/68
[2017-07-20] MEDS: TraZODone HCL 100 MG TABLET PO SCH (20:46)
[2017-07-21] MEDS: LORazepam 1 MG TABLET PO PRN (00:13)
[2017-07-21] MEDS: ZOLPIDEM TARTRATE 10 MG TABLET PO PRN (00:13)
[2017-07-21] MEDS: LEVOTHYROXINE SODIUM 75 MCG TABLET PO SCH (06:55)
[2017-07-21] MEDS: PANTOPRAZOLE SODIUM 40 MG DR TABLET PO SCH (06:55)
[2017-07-21] MEDS: NICOTINE 21 MG/24 HOUR PATCH TD SCH (09:00)
[2017-07-21] MEDS: RisperiDONE 3 MG TABLET PO SCH ×2 (09:20→16:19)
[2017-07-21] MEDS: PALIPERIDONE 6 MG ER TABLET PO SCH ×2 (09:20→16:19)
[2017-07-21] MEDS: DOCUSATE SODIUM 100 MG CAPSULE PO SCH ×2 (09:20→16:19)
[2017-07-21] MEDS: BENZTROPINE MESYLATE 2 MG TABLET PO SCH ×2 (09:20→16:18)
[2017-07-21] MEDS: DIVALPROEX SODIUM 250 MG DR TABLET PO SCH ×2 (09:24→16:18)
[2017-07-21 16:33] VITALS: BP 102/70
[2017-07-21] MEDS: TraZODone HCL 100 MG TABLET PO SCH (20:17)
[2017-07-22 01:50] VITALS: BP 122/73
[2017-07-22] MEDS: LEVOTHYROXINE SODIUM 75 MCG TABLET PO SCH (06:51)
[2017-07-22] MEDS: PANTOPRAZOLE SODIUM 40 MG DR TABLET PO SCH (06:51)
[2017-07-22] MEDS: NICOTINE 21 MG/24 HOUR PATCH TD SCH (09:00)
[2017-07-22 09:22] VITALS: BP 127/62
[2017-07-22] MEDS: PALIPERIDONE 6 MG ER TABLET PO SCH ×2 (11:14→17:22)
[2017-07-22] MEDS: DOCUSATE SODIUM 100 MG CAPSULE PO SCH ×2 (11:14→17:22)
[2017-07-22] MEDS: DIVALPROEX SODIUM 250 MG DR TABLET PO SCH ×2 (11:14→17:22)
[2017-07-22] MEDS: RisperiDONE 3 MG TABLET PO SCH ×2 (11:14→17:22)
[2017-07-22] MEDS: BENZTROPINE MESYLATE 2 MG TABLET PO SCH ×2 (11:14→17:22)
[2017-07-22 16:00] VITALS: BP 131/87
[2017-07-22] MEDS: TraZODone HCL 100 MG TABLET PO SCH (20:10)
[2017-07-22] MEDS: ZOLPIDEM TARTRATE 10 MG TABLET PO PRN (20:24)
[2017-07-23 01:18] VITALS: BP 115/70
[2017-07-23] MEDS: LORazepam 1 MG TABLET PO PRN ×2 (01:19→23:45)
[2017-07-23] MEDS: LEVOTHYROXINE SODIUM 75 MCG TABLET PO SCH (06:56)
[2017-07-23] MEDS: PANTOPRAZOLE SODIUM 40 MG DR TABLET PO SCH (06:56)
[2017-07-23] MEDS: PALIPERIDONE 6 MG ER TABLET PO SCH ×2 (08:55→17:34)
[2017-07-23] MEDS: BENZTROPINE MESYLATE 2 MG TABLET PO SCH ×2 (08:57→17:33)
[2017-07-23] MEDS: DIVALPROEX SODIUM 250 MG DR TABLET PO SCH ×2 (08:57→17:33)
[2017-07-23] MEDS: RisperiDONE 3 MG TABLET PO SCH ×2 (08:57→17:33)
[2017-07-23] MEDS: NICOTINE 21 MG/24 HOUR PATCH TD SCH (08:57)
[2017-07-23] MEDS: DOCUSATE SODIUM 100 MG CAPSULE PO SCH ×2 (08:58→17:33)
[2017-07-23] MEDS ORDERED: LORazepam 2 MG/ML VIAL IM ONE (14:45)
[2017-07-23] MEDS ORDERED: DiphenhydrAMINE HCL 50 MG/ML VIAL IM ONE (14:45)
[2017-07-23] MEDS ORDERED: HALOPERIDOL LACTATE 5 MG/ML VIAL IM ONE (14:45)
[2017-07-23] MEDS ORDERED: HALOPERIDOL LACTATE 5 MG/ML VIAL ONE (14:46)
[2017-07-23] MEDS ORDERED: DiphenhydrAMINE HCL 50 MG/ML VIAL ONE (14:46)
[2017-07-23 16:50] VITALS: BP 105/68
[2017-07-23] MEDS: TraZODone HCL 100 MG TABLET PO SCH (20:44)
[2017-07-23] MEDS: ZOLPIDEM TARTRATE 10 MG TABLET PO PRN (23:45)
[2017-07-24] MEDS: LEVOTHYROXINE SODIUM 75 MCG TABLET PO SCH (07:05)
[2017-07-24] MEDS: PANTOPRAZOLE SODIUM 40 MG DR TABLET PO SCH (07:05)
[2017-07-24 08:09] VITALS: BP 102/59
[2017-07-24] MEDS: NICOTINE 21 MG/24 HOUR PATCH TD SCH (09:00)
[2017-07-24] MEDS: BENZTROPINE MESYLATE 2 MG TABLET PO SCH ×2 (09:38→17:04)
[2017-07-24] MEDS: DIVALPROEX SODIUM 250 MG DR TABLET PO SCH ×2 (09:38→17:04)
[2017-07-24] MEDS: DOCUSATE SODIUM 100 MG CAPSULE PO SCH ×2 (09:38→17:04)
[2017-07-24] MEDS: RisperiDONE 3 MG TABLET PO SCH ×2 (09:38→17:04)
[2017-07-24] MEDS: PALIPERIDONE 6 MG ER TABLET PO SCH ×2 (09:39→17:04)
[2017-07-24 16:33] VITALS: BP 112/78
[2017-07-24] MEDS: HALOPERIDOL 5 MG TABLET PO PRN ×2 (17:00→23:48)
[2017-07-24] MEDS: LORazepam 1 MG TABLET PO PRN (18:00)
[2017-07-24] MEDS: TraZODone HCL 100 MG TABLET PO SCH (20:14)
[2017-07-24] MEDS: ZOLPIDEM TARTRATE 10 MG TABLET PO PRN (23:48)
[2017-07-25] MEDS: PANTOPRAZOLE SODIUM 40 MG DR TABLET PO SCH (07:20)
[2017-07-25] MEDS: LEVOTHYROXINE SODIUM 75 MCG TABLET PO SCH (07:20)
[2017-07-25] MEDS: DIVALPROEX SODIUM 250 MG DR TABLET PO SCH ×2 (08:54→17:49)
[2017-07-25] MEDS: BENZTROPINE MESYLATE 2 MG TABLET PO SCH ×2 (08:54→17:49)
[2017-07-25] MEDS: RisperiDONE 3 MG TABLET PO SCH ×2 (08:54→17:49)
[2017-07-25] MEDS: PALIPERIDONE 6 MG ER TABLET PO SCH ×2 (08:55→17:49)
[2017-07-25] MEDS: DOCUSATE SODIUM 100 MG CAPSULE PO SCH ×2 (08:55→17:49)
[2017-07-25] MEDS: PALIPERIDONE PALMITATE 234 MG/1.5 ML SYRINGE IM SCH (08:58)
[2017-07-25] MEDS: NICOTINE 21 MG/24 HOUR PATCH TD SCH (09:00)
[2017-07-25 16:00] VITALS: BP 105/73
[2017-07-25] MEDS: TraZODone HCL 100 MG TABLET PO SCH (20:28)
[2017-07-26] MEDS: LORazepam 1 MG TABLET PO PRN ×3 (00:29→22:19)
[2017-07-26] MEDS: ZOLPIDEM TARTRATE 10 MG TABLET PO PRN ×2 (00:29→22:19)
[2017-07-26] MEDS: HALOPERIDOL 5 MG TABLET PO PRN ×4 (01:49→22:19)
[2017-07-26 02:13] VITALS: BP 106/65
[2017-07-26] MEDS: PANTOPRAZOLE SODIUM 40 MG DR TABLET PO SCH (06:43)
[2017-07-26] MEDS: LEVOTHYROXINE SODIUM 75 MCG TABLET PO SCH (06:43)
[2017-07-26] MEDS: NICOTINE 21 MG/24 HOUR PATCH TD SCH (09:00)
[2017-07-26] MEDS: PALIPERIDONE 6 MG ER TABLET PO SCH ×2 (10:46→16:14)
[2017-07-26] MEDS: DIVALPROEX SODIUM 250 MG DR TABLET PO SCH ×2 (10:47→16:13)
[2017-07-26] MEDS: BENZTROPINE MESYLATE 2 MG TABLET PO SCH ×2 (10:47→16:13)
[2017-07-26] MEDS: RisperiDONE 3 MG TABLET PO SCH ×2 (10:48→16:13)
[2017-07-26] MEDS: DOCUSATE SODIUM 100 MG CAPSULE PO SCH ×2 (10:48→16:13)
[2017-07-26 16:00] VITALS: BP 92/63
[2017-07-26] MEDS: TraZODone HCL 100 MG TABLET PO SCH (19:59)
[2017-07-27] MEDS: LEVOTHYROXINE SODIUM 75 MCG TABLET PO SCH (06:51)
[2017-07-27] MEDS: PANTOPRAZOLE SODIUM 40 MG DR TABLET PO SCH (06:51)
[2017-07-27] MEDS: NICOTINE 21 MG/24 HOUR PATCH TD SCH (09:00)
[2017-07-27] MEDS: PALIPERIDONE 6 MG ER TABLET PO SCH ×2 (09:03→16:01)
[2017-07-27] MEDS: DOCUSATE SODIUM 100 MG CAPSULE PO SCH ×2 (09:05→16:00)
[2017-07-27] MEDS: BENZTROPINE MESYLATE 2 MG TABLET PO SCH ×2 (09:12→16:01)
[2017-07-27] MEDS: RisperiDONE 3 MG TABLET PO SCH ×2 (09:12→16:01)
[2017-07-27] MEDS: DIVALPROEX SODIUM 250 MG DR TABLET PO SCH ×2 (09:12→16:02)
[2017-07-27] MEDS: HALOPERIDOL 5 MG TABLET PO PRN ×2 (09:13→15:59)
[2017-07-27] MEDS: LORazepam 1 MG TABLET PO PRN (15:59)
[2017-07-27 16:00] VITALS: BP 115/84
[2017-07-27] MEDS: TraZODone HCL 100 MG TABLET PO SCH (20:06)
[2017-07-28] MEDS: ZOLPIDEM TARTRATE 10 MG TABLET PO PRN (00:01)
[2017-07-28] MEDS: LORazepam 1 MG TABLET PO PRN ×2 (00:01→08:25)
[2017-07-28 00:14] VITALS: BP 107/76
[2017-07-28] MEDS: LEVOTHYROXINE SODIUM 75 MCG TABLET PO SCH (06:52)
[2017-07-28] MEDS: PANTOPRAZOLE SODIUM 40 MG DR TABLET PO SCH (06:52)
[2017-07-28 08:00] VITALS: BP 109/76
[2017-07-28] MEDS: DOCUSATE SODIUM 100 MG CAPSULE PO SCH ×2 (08:23→16:33)
[2017-07-28] MEDS: HALOPERIDOL 5 MG TABLET PO PRN (08:23)
[2017-07-28] MEDS: DIVALPROEX SODIUM 250 MG DR TABLET PO SCH ×2 (08:23→16:33)
[2017-07-28] MEDS: RisperiDONE 3 MG TABLET PO SCH ×2 (08:23→16:33)
[2017-07-28] MEDS: PALIPERIDONE 6 MG ER TABLET PO SCH ×2 (08:24→16:34)
[2017-07-28] MEDS: BENZTROPINE MESYLATE 2 MG TABLET PO SCH ×2 (08:25→16:33)
[2017-07-28] MEDS: NICOTINE 21 MG/24 HOUR PATCH TD SCH (09:00)
[2017-07-28] MEDS: TraZODone HCL 100 MG TABLET PO SCH (20:26)
[2017-07-29 01:05] VITALS: BP 111/60
[2017-07-29] MEDS: HALOPERIDOL 5 MG TABLET PO PRN ×2 (01:08→08:07)
[2017-07-29] MEDS: ZOLPIDEM TARTRATE 10 MG TABLET PO PRN (01:08)
[2017-07-29] MEDS: LEVOTHYROXINE SODIUM 75 MCG TABLET PO SCH (06:56)
[2017-07-29] MEDS: PANTOPRAZOLE SODIUM 40 MG DR TABLET PO SCH (06:56)
[2017-07-29 08:00] VITALS: BP 118/69
[2017-07-29] MEDS: RisperiDONE 3 MG TABLET PO SCH ×2 (08:07→16:53)
[2017-07-29] MEDS: DIVALPROEX SODIUM 250 MG DR TABLET PO SCH ×2 (08:07→16:54)
[2017-07-29] MEDS: PALIPERIDONE 6 MG ER TABLET PO SCH ×2 (08:07→16:54)
[2017-07-29] MEDS: DOCUSATE SODIUM 100 MG CAPSULE PO SCH ×2 (08:07→16:53)
[2017-07-29] MEDS: BENZTROPINE MESYLATE 2 MG TABLET PO SCH ×2 (08:07→16:53)
[2017-07-29] MEDS: LORazepam 1 MG TABLET PO PRN (08:07)
[2017-07-29] MEDS: NICOTINE 21 MG/24 HOUR PATCH TD SCH (09:00)
[2017-07-29 12:22] LABS: BASOPHILS % (AUTO) 0.5 % (0.0-2.0); EOSINOPHILS % (AUTO) 0.2 % (1.0-6.0); HEMATOCRIT 40.2 % (36-46); LYMPHOCYTES # (AUTO) 1.8 K/uL (1.0-4.8); LYMPHOCYTES % (AUTO) 38.8 % (22.0-44.0); MEAN CORPUSCULAR HEMOGLOBIN 32.4 pg (26.0-34.0); MEAN CORPUSCULAR HGB CONC 34.9 G/dL (31.0-37.0); MEAN CORPUSCULAR VOLUME 93 fL (80-100); MONOCYTES # (AUTO) 0.6 K/uL (0.1-1.0); MONOCYTES % (AUTO) 12.7 % (2.0-9.0); NEUTROPHILS # (AUTO) 2.2 K/uL (1.8-7.7); NEUTROPHILS % (AUTO) 47.8 % (40.0-70.0); PLATELET COUNT (AUTO) 131 K/uL (150-450); RED BLOOD CELL COUNT(AUTO) 4.32 MIL/uL (4.00-5.20)
[2017-07-29 13:19] LABS: ANION GAP 9 mmol/L (8-16); CALCIUM, TOTAL 8.5 mg/dL (8.8-10.5); CARBON DIOXIDE 28 mmol/L (22-29); CHLORIDE 106 mmol/L (98-107); CREATININE 0.96 mg/dL (0.60-1.30); GLOMERULAR FILTR. RATE CALC > 60 mL/min (>60); GLUCOSE,RANDOM 64 mg/dL (70-110); POTASSIUM 4.2 mmol/L (3.5-5.1); SODIUM SERUM 143 mmol/L (136-145); UREA NITROGEN, BLOOD 17 mg/dL (7-18)
[2017-07-29] MEDS: MEGESTROL ACETATE 400 MG/10 ML SUSPENSION UDCUP PO SCH (16:55)
[2017-07-29] MEDS: TraZODone HCL 100 MG TABLET PO SCH (20:26)
[2017-07-30] MEDS: HALOPERIDOL 5 MG TABLET PO PRN ×2 (00:04→07:51)
[2017-07-30] MEDS: ZOLPIDEM TARTRATE 10 MG TABLET PO PRN (00:04)
[2017-07-30] MEDS: LEVOTHYROXINE SODIUM 75 MCG TABLET PO SCH (06:54)
[2017-07-30] MEDS: PANTOPRAZOLE SODIUM 40 MG DR TABLET PO SCH (06:55)
[2017-07-30] MEDS: DOCUSATE SODIUM 100 MG CAPSULE PO SCH ×2 (07:51→17:48)
[2017-07-30] MEDS: DIVALPROEX SODIUM 250 MG DR TABLET PO SCH ×2 (07:51→17:48)
[2017-07-30] MEDS: BENZTROPINE MESYLATE 2 MG TABLET PO SCH ×2 (07:51→17:48)
[2017-07-30] MEDS: RisperiDONE 3 MG TABLET PO SCH ×2 (07:51→17:48)
[2017-07-30] MEDS: PALIPERIDONE 6 MG ER TABLET PO SCH ×2 (07:51→17:48)
[2017-07-30] MEDS: MEGESTROL ACETATE 400 MG/10 ML SUSPENSION UDCUP PO SCH ×2 (07:52→17:48)
[2017-07-30] MEDS: NICOTINE 21 MG/24 HOUR PATCH TD SCH (07:53)
[2017-07-30 08:30] VITALS: BP 94/65
[2017-07-30] MEDS: LORazepam 1 MG TABLET PO PRN (12:14)
[2017-07-30 16:00] VITALS: BP 124/62
[2017-07-30] MEDS: TraZODone HCL 100 MG TABLET PO SCH (20:47)
[2017-07-31] MEDS: LORazepam 1 MG TABLET PO PRN ×3 (00:01→23:59)
[2017-07-31] MEDS: ZOLPIDEM TARTRATE 10 MG TABLET PO PRN (00:01)
[2017-07-31] MEDS: LEVOTHYROXINE SODIUM 75 MCG TABLET PO SCH (06:54)
[2017-07-31] MEDS: PANTOPRAZOLE SODIUM 40 MG DR TABLET PO SCH (06:54)
[2017-07-31] MEDS: NICOTINE 21 MG/24 HOUR PATCH TD SCH (09:00)
[2017-07-31] MEDS: BENZTROPINE MESYLATE 2 MG TABLET PO SCH ×2 (10:22→18:19)
[2017-07-31] MEDS: MEGESTROL ACETATE 400 MG/10 ML SUSPENSION UDCUP PO SCH ×2 (10:22→18:19)
[2017-07-31] MEDS: PALIPERIDONE 6 MG ER TABLET PO SCH ×2 (10:23→18:19)
[2017-07-31] MEDS: DIVALPROEX SODIUM 250 MG DR TABLET PO SCH ×2 (10:23→18:19)
[2017-07-31] MEDS: RisperiDONE 3 MG TABLET PO SCH ×2 (10:23→18:19)
[2017-07-31] MEDS: DOCUSATE SODIUM 100 MG CAPSULE PO SCH ×2 (10:23→18:19)
[2017-07-31] MEDS: HALOPERIDOL 5 MG TABLET PO PRN (10:56)
[2017-07-31] MEDS: TraZODone HCL 100 MG TABLET PO SCH (20:17)
[2017-08-01] MEDS: ZOLPIDEM TARTRATE 10 MG TABLET PO PRN
[2017-08-01 01:27] VITALS: BP 146/79
[2017-08-01] MEDS: PANTOPRAZOLE SODIUM 40 MG DR TABLET PO SCH (06:52)
[2017-08-01] MEDS: LEVOTHYROXINE SODIUM 75 MCG TABLET PO SCH (06:53)
[2017-08-01] MEDS: NICOTINE 21 MG/24 HOUR PATCH TD SCH (09:00)
[2017-08-01] MEDS: DIVALPROEX SODIUM 250 MG DR TABLET PO SCH ×2 (09:46→18:10)
[2017-08-01] MEDS: BENZTROPINE MESYLATE 2 MG TABLET PO SCH ×2 (09:46→18:10)
[2017-08-01] MEDS: RisperiDONE 3 MG TABLET PO SCH ×2 (09:47→18:10)
[2017-08-01] MEDS: DOCUSATE SODIUM 100 MG CAPSULE PO SCH ×2 (09:47→18:10)
[2017-08-01] MEDS: MEGESTROL ACETATE 400 MG/10 ML SUSPENSION UDCUP PO SCH ×2 (09:54→18:09)
[2017-08-01] MEDS: PALIPERIDONE 6 MG ER TABLET PO SCH ×2 (10:59→18:10)
[2017-08-01 16:00] VITALS: BP 105/66
[2017-08-01] MEDS: TraZODone HCL 100 MG TABLET PO SCH (22:09)
[2017-08-02] MEDS: LORazepam 1 MG TABLET PO PRN ×2 (00:36→11:46)
[2017-08-02 01:01] VITALS: BP 128/68
[2017-08-02] MEDS: LEVOTHYROXINE SODIUM 75 MCG TABLET PO SCH (06:30)
[2017-08-02] MEDS: PANTOPRAZOLE SODIUM 40 MG DR TABLET PO SCH (06:31)
[2017-08-02] MEDS: NICOTINE 21 MG/24 HOUR PATCH TD SCH (09:00)
[2017-08-02] MEDS: MEGESTROL ACETATE 400 MG/10 ML SUSPENSION UDCUP PO SCH ×2 (10:11→18:22)
[2017-08-02] MEDS: RisperiDONE 3 MG TABLET PO SCH ×2 (10:11→18:21)
[2017-08-02] MEDS: DOCUSATE SODIUM 100 MG CAPSULE PO SCH ×2 (10:11→18:21)
[2017-08-02] MEDS: DIVALPROEX SODIUM 250 MG DR TABLET PO SCH ×2 (10:11→18:21)
[2017-08-02] MEDS: PALIPERIDONE 6 MG ER TABLET PO SCH ×2 (10:11→18:22)
[2017-08-02] MEDS: BENZTROPINE MESYLATE 2 MG TABLET PO SCH ×2 (10:11→18:21)
[2017-08-02] MEDS: HALOPERIDOL 5 MG TABLET PO PRN (11:46)
[2017-08-02 17:00] VITALS: BP 119/67
[2017-08-02] MEDS: TraZODone HCL 100 MG TABLET PO SCH (21:25)
[2017-08-03] VITALS: BP 106/70
[2017-08-03] MEDS: HALOPERIDOL 5 MG TABLET PO PRN ×2 (00:10→12:05)
[2017-08-03] MEDS: ZOLPIDEM TARTRATE 10 MG TABLET PO PRN (00:10)
[2017-08-03] MEDS: LEVOTHYROXINE SODIUM 75 MCG TABLET PO SCH (06:54)
[2017-08-03] MEDS: PANTOPRAZOLE SODIUM 40 MG DR TABLET PO SCH (06:55)
[2017-08-03] MEDS: NICOTINE 21 MG/24 HOUR PATCH TD SCH (09:00)
[2017-08-03] MEDS: PALIPERIDONE 6 MG ER TABLET PO SCH ×2 (09:03→18:00)
[2017-08-03] MEDS: BENZTROPINE MESYLATE 2 MG TABLET PO SCH ×2 (09:03→18:03)
[2017-08-03] MEDS: RisperiDONE 3 MG TABLET PO SCH ×2 (09:03→17:58)
[2017-08-03] MEDS: DOCUSATE SODIUM 100 MG CAPSULE PO SCH ×2 (09:03→17:58)
[2017-08-03] MEDS: DIVALPROEX SODIUM 250 MG DR TABLET PO SCH ×2 (09:04→17:59)
[2017-08-03] MEDS: MEGESTROL ACETATE 400 MG/10 ML SUSPENSION UDCUP PO SCH ×2 (09:04→18:01)
[2017-08-03] MEDS: LORazepam 1 MG TABLET PO PRN (12:05)
[2017-08-03] MEDS: TraZODone HCL 100 MG TABLET PO SCH (20:29)
[2017-08-04] MEDS: ZOLPIDEM TARTRATE 10 MG TABLET PO PRN (00:01)
[2017-08-04] MEDS: HALOPERIDOL 5 MG TABLET PO PRN (00:01)
[2017-08-04] MEDS: PANTOPRAZOLE SODIUM 40 MG DR TABLET PO SCH (06:57)
[2017-08-04] MEDS: LEVOTHYROXINE SODIUM 75 MCG TABLET PO SCH (06:57)
[2017-08-04] MEDS: DOCUSATE SODIUM 100 MG CAPSULE PO SCH ×2 (07:41→16:32)
[2017-08-04] MEDS: BENZTROPINE MESYLATE 2 MG TABLET PO SCH ×2 (07:41→16:26)
[2017-08-04] MEDS: RisperiDONE 3 MG TABLET PO SCH ×2 (07:41→16:26)
[2017-08-04] MEDS: DIVALPROEX SODIUM 250 MG DR TABLET PO SCH ×2 (07:41→16:26)
[2017-08-04] MEDS: MEGESTROL ACETATE 400 MG/10 ML SUSPENSION UDCUP PO SCH ×2 (07:42→16:26)
[2017-08-04] MEDS: PALIPERIDONE 6 MG ER TABLET PO SCH ×2 (07:42→16:26)
[2017-08-04] MEDS: NICOTINE 21 MG/24 HOUR PATCH TD SCH (07:42)
[2017-08-04 08:11] VITALS: BP 127/56
[2017-08-04 16:00] VITALS: BP 117/67
[2017-08-04] MEDS: TraZODone HCL 100 MG TABLET PO SCH (21:51)
[2017-08-05] VITALS: BP 109/71
[2017-08-05] MEDS: HALOPERIDOL 5 MG TABLET PO PRN ×2 (00:09→07:54)
[2017-08-05] MEDS: ZOLPIDEM TARTRATE 10 MG TABLET PO PRN (00:09)
[2017-08-05] MEDS: PANTOPRAZOLE SODIUM 40 MG DR TABLET PO SCH (06:50)
[2017-08-05] MEDS: LEVOTHYROXINE SODIUM 75 MCG TABLET PO SCH (06:50)
[2017-08-05] MEDS: PALIPERIDONE 6 MG ER TABLET PO SCH ×2 (07:54→18:13)
[2017-08-05] MEDS: MEGESTROL ACETATE 400 MG/10 ML SUSPENSION UDCUP PO SCH ×2 (07:54→18:14)
[2017-08-05] MEDS: DOCUSATE SODIUM 100 MG CAPSULE PO SCH ×2 (07:54→18:13)
[2017-08-05] MEDS: RisperiDONE 3 MG TABLET PO SCH ×2 (07:54→18:13)
[2017-08-05] MEDS: DIVALPROEX SODIUM 250 MG DR TABLET PO SCH ×2 (07:54→18:13)
[2017-08-05] MEDS: LORazepam 1 MG TABLET PO PRN ×2 (07:54→18:13)
[2017-08-05] MEDS: BENZTROPINE MESYLATE 2 MG TABLET PO SCH ×2 (07:54→18:13)
[2017-08-05] MEDS: NICOTINE 21 MG/24 HOUR PATCH TD SCH (07:55)
[2017-08-05 08:00] VITALS: BP 122/92
[2017-08-05] MEDS: TraZODone HCL 100 MG TABLET PO SCH (21:00)
[2017-08-06] MEDS: ZOLPIDEM TARTRATE 10 MG TABLET PO PRN (00:44)
[2017-08-06] MEDS: HALOPERIDOL 5 MG TABLET PO PRN ×2 (00:44→09:26)
[2017-08-06] MEDS: PANTOPRAZOLE SODIUM 40 MG DR TABLET PO SCH (06:53)
[2017-08-06] MEDS: LEVOTHYROXINE SODIUM 75 MCG TABLET PO SCH (06:53)
[2017-08-06] MEDS: BENZTROPINE MESYLATE 2 MG TABLET PO SCH ×2 (08:10→18:30)
[2017-08-06] MEDS: DIVALPROEX SODIUM 250 MG DR TABLET PO SCH ×2 (08:10→18:30)
[2017-08-06] MEDS: PALIPERIDONE 6 MG ER TABLET PO SCH ×2 (08:10→18:30)
[2017-08-06] MEDS: DOCUSATE SODIUM 100 MG CAPSULE PO SCH ×2 (08:10→18:30)
[2017-08-06] MEDS: MEGESTROL ACETATE 400 MG/10 ML SUSPENSION UDCUP PO SCH ×2 (08:11→18:30)
[2017-08-06] MEDS: RisperiDONE 3 MG TABLET PO SCH ×2 (08:11→18:30)
[2017-08-06] MEDS: NICOTINE 21 MG/24 HOUR PATCH TD SCH (08:11)
[2017-08-06] MEDS: LORazepam 1 MG TABLET PO PRN (09:25)
[2017-08-06] MEDS: MAG HYDROX/AL HYDROX/SIMETH ES 30 ML SUSPENSION UDCUP PO PRN (09:27)
[2017-08-06 12:50] VITALS: BP 112/69
[2017-08-06 19:10] VITALS: BP 108/62
[2017-08-06] MEDS: TraZODone HCL 100 MG TABLET PO SCH (21:25)
[2017-08-07] MEDS: ZOLPIDEM TARTRATE 10 MG TABLET PO PRN (00:10)
[2017-08-07] MEDS: LORazepam 1 MG TABLET PO PRN (04:28)
[2017-08-07] MEDS: HALOPERIDOL 5 MG TABLET PO PRN (04:28)
[2017-08-07] MEDS: LEVOTHYROXINE SODIUM 75 MCG TABLET PO SCH (06:56)
[2017-08-07] MEDS: PANTOPRAZOLE SODIUM 40 MG DR TABLET PO SCH (06:56)
[2017-08-07] MEDS: DIVALPROEX SODIUM 250 MG DR TABLET PO SCH ×2 (08:18→16:03)
[2017-08-07] MEDS: DOCUSATE SODIUM 100 MG CAPSULE PO SCH ×2 (08:18→16:03)
[2017-08-07] MEDS: BENZTROPINE MESYLATE 2 MG TABLET PO SCH ×2 (08:18→16:02)
[2017-08-07] MEDS: PALIPERIDONE 6 MG ER TABLET PO SCH ×2 (08:18→16:03)
[2017-08-07] MEDS: NICOTINE 21 MG/24 HOUR PATCH TD SCH (08:19)
[2017-08-07] MEDS: RisperiDONE 3 MG TABLET PO SCH ×2 (08:19→16:04)
[2017-08-07] MEDS: MEGESTROL ACETATE 400 MG/10 ML SUSPENSION UDCUP PO SCH ×2 (08:19→16:04)
[2017-08-07] MEDS: TraZODone HCL 100 MG TABLET PO SCH (20:31)
[2017-08-08] MEDS: ZOLPIDEM TARTRATE 10 MG TABLET PO PRN ×2 (00:03→23:03)
[2017-08-08] MEDS: HALOPERIDOL 5 MG TABLET PO PRN ×2 (00:03→12:53)
[2017-08-08] MEDS: LEVOTHYROXINE SODIUM 75 MCG TABLET PO SCH (06:55)
[2017-08-08] MEDS: PANTOPRAZOLE SODIUM 40 MG DR TABLET PO SCH (06:55)
[2017-08-08] MEDS: DIVALPROEX SODIUM 250 MG DR TABLET PO SCH ×2 (08:00→17:10)
[2017-08-08] MEDS: DOCUSATE SODIUM 100 MG CAPSULE PO SCH ×2 (08:00→17:14)
[2017-08-08] MEDS: RisperiDONE 3 MG TABLET PO SCH ×2 (08:00→17:10)
[2017-08-08] MEDS: BENZTROPINE MESYLATE 2 MG TABLET PO SCH ×2 (08:00→17:09)
[2017-08-08] MEDS: PALIPERIDONE 6 MG ER TABLET PO SCH ×2 (08:01→17:10)
[2017-08-08] MEDS: MEGESTROL ACETATE 400 MG/10 ML SUSPENSION UDCUP PO SCH ×2 (08:01→17:10)
[2017-08-08] MEDS: NICOTINE 21 MG/24 HOUR PATCH TD SCH (08:05)
[2017-08-08 08:19] VITALS: BP 127/95
[2017-08-08] MEDS: LORazepam 1 MG TABLET PO PRN (12:53)
[2017-08-08 19:41] VITALS: BP 113/71
[2017-08-08] MEDS: TraZODone HCL 100 MG TABLET PO SCH (20:09)
[2017-08-09] MEDS: PANTOPRAZOLE SODIUM 40 MG DR TABLET PO SCH (06:55)
[2017-08-09] MEDS: LEVOTHYROXINE SODIUM 75 MCG TABLET PO SCH (06:56)
[2017-08-09] MEDS: MEGESTROL ACETATE 400 MG/10 ML SUSPENSION UDCUP PO SCH ×2 (08:09→16:29)
[2017-08-09] MEDS: DOCUSATE SODIUM 100 MG CAPSULE PO SCH ×2 (08:09→16:30)
[2017-08-09] MEDS: DIVALPROEX SODIUM 250 MG DR TABLET PO SCH ×2 (08:09→16:30)
[2017-08-09] MEDS: PALIPERIDONE 6 MG ER TABLET PO SCH ×2 (08:09→16:30)
[2017-08-09] MEDS: BENZTROPINE MESYLATE 2 MG TABLET PO SCH ×2 (08:09→16:30)
[2017-08-09] MEDS: RisperiDONE 3 MG TABLET PO SCH ×2 (08:09→16:30)
[2017-08-09] MEDS: NICOTINE 21 MG/24 HOUR PATCH TD SCH (09:00)
[2017-08-09 16:02] VITALS: BP 121/67
[2017-08-09] MEDS: TraZODone HCL 100 MG TABLET PO SCH (20:33)
[2017-08-09] MEDS: ZOLPIDEM TARTRATE 10 MG TABLET PO PRN (20:40)
[2017-08-10] MEDS: LEVOTHYROXINE SODIUM 75 MCG TABLET PO SCH (06:32)
[2017-08-10] MEDS: PANTOPRAZOLE SODIUM 40 MG DR TABLET PO SCH (06:32)
[2017-08-10] MEDS: MEGESTROL ACETATE 400 MG/10 ML SUSPENSION UDCUP PO SCH ×2 (07:59→16:31)
[2017-08-10] MEDS: PALIPERIDONE 6 MG ER TABLET PO SCH ×2 (07:59→16:31)
[2017-08-10] MEDS: DOCUSATE SODIUM 100 MG CAPSULE PO SCH ×2 (07:59→16:31)
[2017-08-10] MEDS: RisperiDONE 3 MG TABLET PO SCH ×2 (07:59→16:31)
[2017-08-10] MEDS: BENZTROPINE MESYLATE 2 MG TABLET PO SCH ×2 (07:59→16:31)
[2017-08-10] MEDS: DIVALPROEX SODIUM 250 MG DR TABLET PO SCH ×2 (07:59→16:31)
[2017-08-10] MEDS: NICOTINE 21 MG/24 HOUR PATCH TD SCH (08:00)
[2017-08-10 08:05] VITALS: BP 136/93
[2017-08-10] MEDS: LORazepam 1 MG TABLET PO PRN (12:17)
[2017-08-10] MEDS: HALOPERIDOL 5 MG TABLET PO PRN (12:17)
[2017-08-10 16:37] VITALS: BP 120/78
[2017-08-10] MEDS: TraZODone HCL 100 MG TABLET PO SCH (21:34)
[2017-08-11] MEDS: PANTOPRAZOLE SODIUM 40 MG DR TABLET PO SCH (06:36)
[2017-08-11] MEDS: LEVOTHYROXINE SODIUM 75 MCG TABLET PO SCH (06:36)
[2017-08-11 08:08] VITALS: BP 109/77
[2017-08-11] MEDS: NICOTINE 21 MG/24 HOUR PATCH TD SCH (09:00)
[2017-08-11] MEDS: DIVALPROEX SODIUM 250 MG DR TABLET PO SCH ×2 (09:11→16:21)
[2017-08-11] MEDS: DOCUSATE SODIUM 100 MG CAPSULE PO SCH ×2 (09:12→16:22)
[2017-08-11] MEDS: PALIPERIDONE 6 MG ER TABLET PO SCH ×2 (09:12→16:22)
[2017-08-11] MEDS: RisperiDONE 3 MG TABLET PO SCH ×2 (09:12→16:22)
[2017-08-11] MEDS: BENZTROPINE MESYLATE 2 MG TABLET PO SCH ×2 (09:12→16:22)
[2017-08-11] MEDS: MEGESTROL ACETATE 400 MG/10 ML SUSPENSION UDCUP PO SCH ×2 (09:13→16:21)
[2017-08-11] MEDS: HALOPERIDOL 5 MG TABLET PO PRN ×2 (10:09→15:35)
[2017-08-11] MEDS: LORazepam 1 MG TABLET PO PRN ×2 (10:09→15:35)
[2017-08-11 17:00] VITALS: BP 107/72
[2017-08-11] MEDS: TraZODone HCL 100 MG TABLET PO SCH (20:23)
[2017-08-12] MEDS: ZOLPIDEM TARTRATE 10 MG TABLET PO PRN (02:42)
[2017-08-12] MEDS: LEVOTHYROXINE SODIUM 75 MCG TABLET PO SCH (06:59)
[2017-08-12] MEDS: PANTOPRAZOLE SODIUM 40 MG DR TABLET PO SCH (07:00)
[2017-08-12] MEDS: DIVALPROEX SODIUM 250 MG DR TABLET PO SCH ×2 (08:18→18:20)
[2017-08-12] MEDS: RisperiDONE 3 MG TABLET PO SCH ×2 (08:19→18:20)
[2017-08-12] MEDS: BENZTROPINE MESYLATE 2 MG TABLET PO SCH ×2 (08:19→18:19)
[2017-08-12] MEDS: PALIPERIDONE 6 MG ER TABLET PO SCH ×2 (08:19→18:20)
[2017-08-12] MEDS: DOCUSATE SODIUM 100 MG CAPSULE PO SCH ×2 (08:20→18:20)
[2017-08-12] MEDS: MEGESTROL ACETATE 400 MG/10 ML SUSPENSION UDCUP PO SCH ×2 (08:21→18:20)
[2017-08-12] MEDS: NICOTINE 21 MG/24 HOUR PATCH TD SCH (08:21)
[2017-08-12] MEDS: LORazepam 1 MG TABLET PO PRN (10:43)
[2017-08-12 13:46] VITALS: BP 144/61
[2017-08-12] MEDS: HALOPERIDOL 5 MG TABLET PO PRN (13:49)
[2017-08-12] MEDS: TraZODone HCL 100 MG TABLET PO SCH (20:35)
[2017-08-12 21:29] VITALS: BP 124/74
[2017-08-13] MEDS: LEVOTHYROXINE SODIUM 75 MCG TABLET PO SCH (06:59)
[2017-08-13] MEDS: PANTOPRAZOLE SODIUM 40 MG DR TABLET PO SCH (07:00)
[2017-08-13] MEDS: NICOTINE 21 MG/24 HOUR PATCH TD SCH (09:00)
[2017-08-13] MEDS: RisperiDONE 3 MG TABLET PO SCH ×2 (09:01→18:16)
[2017-08-13] MEDS: DOCUSATE SODIUM 100 MG CAPSULE PO SCH ×2 (09:01→18:16)
[2017-08-13] MEDS: BENZTROPINE MESYLATE 2 MG TABLET PO SCH ×2 (09:01→18:16)
[2017-08-13] MEDS: MEGESTROL ACETATE 400 MG/10 ML SUSPENSION UDCUP PO SCH ×2 (09:01→18:17)
[2017-08-13] MEDS: DIVALPROEX SODIUM 250 MG DR TABLET PO SCH ×2 (09:01→18:16)
[2017-08-13] MEDS: PALIPERIDONE 6 MG ER TABLET PO SCH ×2 (09:02→18:17)
[2017-08-13] MEDS: HALOPERIDOL 5 MG TABLET PO PRN (11:37)
[2017-08-13] MEDS: LORazepam 1 MG TABLET PO PRN (11:37)
[2017-08-13 16:05] VITALS: BP 125/64
[2017-08-13] MEDS ORDERED: BENZTROPINE MESYLATE 2 MG TABLET PO SCH (17:00)
[2017-08-13] MEDS: TraZODone HCL 100 MG TABLET PO SCH (21:25)
[2017-08-14 04:29] VITALS: BP 109/53
[2017-08-14] MEDS: PANTOPRAZOLE SODIUM 40 MG DR TABLET PO SCH (06:57)
[2017-08-14] MEDS: LEVOTHYROXINE SODIUM 75 MCG TABLET PO SCH (06:58)
[2017-08-14] MEDS: NICOTINE 21 MG/24 HOUR PATCH TD SCH (09:00)
[2017-08-14] MEDS: DOCUSATE SODIUM 100 MG CAPSULE PO SCH ×2 (09:28→16:24)
[2017-08-14] MEDS: BENZTROPINE MESYLATE 2 MG TABLET PO SCH ×2 (09:28→16:24)
[2017-08-14] MEDS: MEGESTROL ACETATE 400 MG/10 ML SUSPENSION UDCUP PO SCH ×2 (09:29→16:24)
[2017-08-14] MEDS: PALIPERIDONE 6 MG ER TABLET PO SCH ×2 (09:29→16:25)
[2017-08-14] MEDS: DIVALPROEX SODIUM 250 MG DR TABLET PO SCH ×2 (09:29→16:24)
[2017-08-14] MEDS: RisperiDONE 3 MG TABLET PO SCH ×2 (09:29→16:25)
[2017-08-14 16:30] VITALS: BP 110/68
[2017-08-14] MEDS: TraZODone HCL 100 MG TABLET PO SCH (21:41)
[2017-08-15] MEDS: PANTOPRAZOLE SODIUM 40 MG DR TABLET PO SCH (06:35)
[2017-08-15] MEDS: LEVOTHYROXINE SODIUM 75 MCG TABLET PO SCH (06:35)
[2017-08-15 08:05] VITALS: BP 117/74
[2017-08-15] MEDS: BENZTROPINE MESYLATE 2 MG TABLET PO SCH ×2 (08:54→16:15)
[2017-08-15] MEDS: DIVALPROEX SODIUM 250 MG DR TABLET PO SCH ×2 (08:55→16:14)
[2017-08-15] MEDS: RisperiDONE 3 MG TABLET PO SCH ×2 (08:55→16:16)
[2017-08-15] MEDS: PALIPERIDONE 6 MG ER TABLET PO SCH ×2 (08:55→16:15)
[2017-08-15] MEDS: MEGESTROL ACETATE 400 MG/10 ML SUSPENSION UDCUP PO SCH ×2 (08:56→16:16)
[2017-08-15] MEDS: DOCUSATE SODIUM 100 MG CAPSULE PO SCH ×2 (09:00→16:14)
[2017-08-15] MEDS: NICOTINE 21 MG/24 HOUR PATCH TD SCH (09:00)
[2017-08-15 16:17] VITALS: BP 120/78
[2017-08-15] MEDS: HALOPERIDOL 5 MG TABLET PO PRN (16:48)
[2017-08-15] MEDS: LORazepam 1 MG TABLET PO PRN (16:48)
[2017-08-15] MEDS: TraZODone HCL 100 MG TABLET PO SCH (21:22)
[2017-08-16] MEDS: PANTOPRAZOLE SODIUM 40 MG DR TABLET PO SCH (06:19)
[2017-08-16] MEDS: LEVOTHYROXINE SODIUM 75 MCG TABLET PO SCH (06:19)
[2017-08-16] MEDS: NICOTINE 21 MG/24 HOUR PATCH TD SCH (09:00)
[2017-08-16] MEDS: RisperiDONE 3 MG TABLET PO SCH ×2 (09:24→16:30)
[2017-08-16] MEDS: BENZTROPINE MESYLATE 2 MG TABLET PO SCH ×2 (09:24→16:30)
[2017-08-16] MEDS: DIVALPROEX SODIUM 250 MG DR TABLET PO SCH ×2 (09:24→16:30)
[2017-08-16] MEDS: DOCUSATE SODIUM 100 MG CAPSULE PO SCH ×2 (09:24→16:30)
[2017-08-16] MEDS: PALIPERIDONE 6 MG ER TABLET PO SCH ×2 (09:25→16:30)
[2017-08-16] MEDS: MEGESTROL ACETATE 400 MG/10 ML SUSPENSION UDCUP PO SCH ×2 (09:25→16:30)
[2017-08-16] MEDS: HALOPERIDOL 5 MG TABLET PO PRN ×2 (09:34→15:40)
[2017-08-16] MEDS: LORazepam 1 MG TABLET PO PRN ×2 (09:34→15:40)
[2017-08-16 11:06] VITALS: BP 128/74
[2017-08-16] MEDS: TraZODone HCL 100 MG TABLET PO SCH (21:49)
[2017-08-17] MEDS: PANTOPRAZOLE SODIUM 40 MG DR TABLET PO SCH (06:28)
[2017-08-17] MEDS: LEVOTHYROXINE SODIUM 75 MCG TABLET PO SCH (06:28)
[2017-08-17] MEDS: DIVALPROEX SODIUM 250 MG DR TABLET PO SCH ×2 (08:08→16:42)
[2017-08-17] MEDS: BENZTROPINE MESYLATE 2 MG TABLET PO SCH ×2 (08:09→16:41)
[2017-08-17] MEDS: DOCUSATE SODIUM 100 MG CAPSULE PO SCH ×2 (08:09→16:42)
[2017-08-17] MEDS: LORazepam 1 MG TABLET PO PRN (08:09)
[2017-08-17] MEDS: HALOPERIDOL 5 MG TABLET PO PRN (08:09)
[2017-08-17] MEDS: RisperiDONE 3 MG TABLET PO SCH ×2 (08:09→16:42)
[2017-08-17] MEDS: PALIPERIDONE 6 MG ER TABLET PO SCH ×2 (08:10→16:42)
[2017-08-17] MEDS: MEGESTROL ACETATE 400 MG/10 ML SUSPENSION UDCUP PO SCH ×2 (08:10→16:43)
[2017-08-17] MEDS: NICOTINE 21 MG/24 HOUR PATCH TD SCH (08:15)
[2017-08-17 09:11] VITALS: BP 134/75
[2017-08-17 18:41] VITALS: BP 132/84
[2017-08-17] MEDS: TraZODone HCL 100 MG TABLET PO SCH (20:08)
[2017-08-18] MEDS: PANTOPRAZOLE SODIUM 40 MG DR TABLET PO SCH (06:48)
[2017-08-18] MEDS: LEVOTHYROXINE SODIUM 75 MCG TABLET PO SCH (06:49)
[2017-08-18 08:30] VITALS: BP 116/79
[2017-08-18] MEDS: NICOTINE 21 MG/24 HOUR PATCH TD SCH (09:00)
[2017-08-18] MEDS: DIVALPROEX SODIUM 250 MG DR TABLET PO SCH ×2 (09:22→17:18)
[2017-08-18] MEDS: BENZTROPINE MESYLATE 2 MG TABLET PO SCH ×2 (09:22→17:18)
[2017-08-18] MEDS: RisperiDONE 3 MG TABLET PO SCH ×2 (09:23→17:18)
[2017-08-18] MEDS: PALIPERIDONE 6 MG ER TABLET PO SCH ×2 (09:23→17:18)
[2017-08-18] MEDS: MEGESTROL ACETATE 400 MG/10 ML SUSPENSION UDCUP PO SCH ×2 (09:23→17:18)
[2017-08-18] MEDS: DOCUSATE SODIUM 100 MG CAPSULE PO SCH ×2 (09:24→17:18)
[2017-08-18] MEDS: TraZODone HCL 100 MG TABLET PO SCH (21:47)
[2017-08-19] MEDS: LEVOTHYROXINE SODIUM 75 MCG TABLET PO SCH (06:54)
[2017-08-19] MEDS: PANTOPRAZOLE SODIUM 40 MG DR TABLET PO SCH (06:54)
[2017-08-19] MEDS: NICOTINE 21 MG/24 HOUR PATCH TD SCH (09:00)
[2017-08-19] MEDS: BENZTROPINE MESYLATE 2 MG TABLET PO SCH ×2 (09:33→18:53)
[2017-08-19] MEDS: MEGESTROL ACETATE 400 MG/10 ML SUSPENSION UDCUP PO SCH ×2 (09:34→18:55)
[2017-08-19] MEDS: PALIPERIDONE 6 MG ER TABLET PO SCH ×2 (09:34→18:55)
[2017-08-19] MEDS: DOCUSATE SODIUM 100 MG CAPSULE PO SCH ×2 (09:34→18:54)
[2017-08-19] MEDS: RisperiDONE 3 MG TABLET PO SCH ×2 (09:34→18:53)
[2017-08-19] MEDS: DIVALPROEX SODIUM 250 MG DR TABLET PO SCH ×2 (09:34→18:54)
[2017-08-19] MEDS: HALOPERIDOL 5 MG TABLET PO PRN (10:03)
[2017-08-19 20:29] VITALS: BP 129/89
[2017-08-19] MEDS: TraZODone HCL 100 MG TABLET PO SCH (21:26)
[2017-08-20] MEDS: HALOPERIDOL 5 MG TABLET PO PRN ×2 (04:07→13:45)
[2017-08-20] MEDS: LEVOTHYROXINE SODIUM 75 MCG TABLET PO SCH (06:59)
[2017-08-20] MEDS: PANTOPRAZOLE SODIUM 40 MG DR TABLET PO SCH (06:59)
[2017-08-20 08:00] VITALS: BP 118/75
[2017-08-20] MEDS: NICOTINE 21 MG/24 HOUR PATCH TD SCH (09:00)
[2017-08-20] MEDS: PALIPERIDONE 6 MG ER TABLET PO SCH ×2 (10:06→18:13)
[2017-08-20] MEDS: BENZTROPINE MESYLATE 2 MG TABLET PO SCH ×2 (10:06→18:12)
[2017-08-20] MEDS: DIVALPROEX SODIUM 250 MG DR TABLET PO SCH ×2 (10:06→18:12)
[2017-08-20] MEDS: MEGESTROL ACETATE 400 MG/10 ML SUSPENSION UDCUP PO SCH ×2 (10:06→18:13)
[2017-08-20] MEDS: DOCUSATE SODIUM 100 MG CAPSULE PO SCH ×2 (10:06→18:12)
[2017-08-20] MEDS: RisperiDONE 3 MG TABLET PO SCH ×2 (10:10→18:12)
[2017-08-20 16:00] VITALS: BP 125/92
[2017-08-20] MEDS: TraZODone HCL 100 MG TABLET PO SCH (21:34)
[2017-08-21] MEDS: LEVOTHYROXINE SODIUM 75 MCG TABLET PO SCH (06:54)
[2017-08-21] MEDS: PANTOPRAZOLE SODIUM 40 MG DR TABLET PO SCH (06:54)
[2017-08-21] MEDS: HALOPERIDOL 5 MG TABLET PO PRN (07:26)
[2017-08-21] MEDS: DOCUSATE SODIUM 100 MG CAPSULE PO SCH ×2 (07:28→16:48)
[2017-08-21] MEDS: PALIPERIDONE 6 MG ER TABLET PO SCH ×2 (07:28→16:47)
[2017-08-21] MEDS: BENZTROPINE MESYLATE 2 MG TABLET PO SCH ×2 (07:28→16:48)
[2017-08-21] MEDS: DIVALPROEX SODIUM 250 MG DR TABLET PO SCH ×2 (07:28→16:45)
[2017-08-21] MEDS: MEGESTROL ACETATE 400 MG/10 ML SUSPENSION UDCUP PO SCH ×2 (07:29→16:49)
[2017-08-21] MEDS: RisperiDONE 3 MG TABLET PO SCH ×2 (07:29→16:47)
[2017-08-21 08:00] VITALS: BP 115/68
[2017-08-21] MEDS: NICOTINE 21 MG/24 HOUR PATCH TD SCH (09:00)
[2017-08-21] MEDS ORDERED: TUBERCULIN, PURIFIED PROTEIN DERIVATIVE 5 TU/0.1 ML SYG ID ONE (10:45)
[2017-08-21 16:14] VITALS: BP 122/61
[2017-08-21] MEDS: TraZODone HCL 100 MG TABLET PO SCH (20:18)
[2017-08-22] MEDS: PANTOPRAZOLE SODIUM 40 MG DR TABLET PO SCH (06:48)
[2017-08-22] MEDS: LEVOTHYROXINE SODIUM 75 MCG TABLET PO SCH (06:48)
[2017-08-22] MEDS: DIVALPROEX SODIUM 250 MG DR TABLET PO SCH ×2 (08:06→15:41)
[2017-08-22] MEDS: PALIPERIDONE 6 MG ER TABLET PO SCH ×2 (08:06→15:42)
[2017-08-22] MEDS: DOCUSATE SODIUM 100 MG CAPSULE PO SCH ×2 (08:06→15:42)
[2017-08-22] MEDS: RisperiDONE 3 MG TABLET PO SCH ×2 (08:06→15:47)
[2017-08-22] MEDS: MEGESTROL ACETATE 400 MG/10 ML SUSPENSION UDCUP PO SCH ×2 (08:07→15:46)
[2017-08-22] MEDS: BENZTROPINE MESYLATE 2 MG TABLET PO SCH ×2 (08:07→15:42)
[2017-08-22] MEDS: PALIPERIDONE PALMITATE 234 MG/1.5 ML SYRINGE IM SCH (08:07)
[2017-08-22] MEDS: NICOTINE 21 MG/24 HOUR PATCH TD SCH (08:43)
[2017-08-22 17:25] VITALS: BP 127/93
[2017-08-22] MEDS: TraZODone HCL 100 MG TABLET PO SCH (20:12)
[2017-08-22] MEDS: HALOPERIDOL 5 MG TABLET PO PRN (21:20)
[2017-08-23] MEDS: PANTOPRAZOLE SODIUM 40 MG DR TABLET PO SCH (06:53)
[2017-08-23] MEDS: LEVOTHYROXINE SODIUM 75 MCG TABLET PO SCH (06:53)
[2017-08-23 08:00] VITALS: BP 131/72
[2017-08-23] MEDS: NICOTINE 21 MG/24 HOUR PATCH TD SCH (09:00)
[2017-08-23] MEDS: MEGESTROL ACETATE 400 MG/10 ML SUSPENSION UDCUP PO SCH ×2 (09:32→16:32)
[2017-08-23] MEDS: DOCUSATE SODIUM 100 MG CAPSULE PO SCH ×2 (09:32→16:32)
[2017-08-23] MEDS: PALIPERIDONE 6 MG ER TABLET PO SCH ×2 (09:32→16:33)
[2017-08-23] MEDS: RisperiDONE 3 MG TABLET PO SCH ×2 (09:32→16:33)
[2017-08-23] MEDS: DIVALPROEX SODIUM 250 MG DR TABLET PO SCH ×2 (09:32→16:32)
[2017-08-23] MEDS: BENZTROPINE MESYLATE 2 MG TABLET PO SCH ×2 (09:32→16:31)
[2017-08-23 16:49] VITALS: BP 125/82
[2017-08-23] MEDS: TraZODone HCL 100 MG TABLET PO SCH (20:47)
[2017-08-24] MEDS: PANTOPRAZOLE SODIUM 40 MG DR TABLET PO SCH (06:39)
[2017-08-24] MEDS: LEVOTHYROXINE SODIUM 75 MCG TABLET PO SCH (06:39)
[2017-08-24 08:00] VITALS: BP 133/74
[2017-08-24] MEDS: DOCUSATE SODIUM 100 MG CAPSULE PO SCH ×2 (09:00→17:55)
[2017-08-24] MEDS: NICOTINE 21 MG/24 HOUR PATCH TD SCH (09:00)
[2017-08-24] MEDS: BENZTROPINE MESYLATE 2 MG TABLET PO SCH ×2 (10:02→17:55)
[2017-08-24] MEDS: RisperiDONE 3 MG TABLET PO SCH ×2 (10:02→17:55)
[2017-08-24] MEDS: PALIPERIDONE 6 MG ER TABLET PO SCH ×2 (10:02→17:55)
[2017-08-24] MEDS: MEGESTROL ACETATE 400 MG/10 ML SUSPENSION UDCUP PO SCH ×2 (10:03→17:55)
[2017-08-24] MEDS: DIVALPROEX SODIUM 250 MG DR TABLET PO SCH ×2 (10:03→17:55)
[2017-08-24 16:50] VITALS: BP 108/55
[2017-08-24] MEDS: TraZODone HCL 100 MG TABLET PO SCH (20:57)
[2017-08-25] MEDS: HALOPERIDOL 5 MG TABLET PO PRN (00:32)
[2017-08-25 00:58] VITALS: BP 103/66
[2017-08-25] MEDS: LEVOTHYROXINE SODIUM 75 MCG TABLET PO SCH (06:58)
[2017-08-25] MEDS: PANTOPRAZOLE SODIUM 40 MG DR TABLET PO SCH (06:58)
[2017-08-25 08:56] VITALS: BP 131/90
[2017-08-25] MEDS: NICOTINE 21 MG/24 HOUR PATCH TD SCH (09:00)
[2017-08-25] MEDS: DOCUSATE SODIUM 100 MG CAPSULE PO SCH ×2 (09:00→17:16)
[2017-08-25] MEDS: DIVALPROEX SODIUM 250 MG DR TABLET PO SCH ×2 (09:35→17:16)
[2017-08-25] MEDS: BENZTROPINE MESYLATE 2 MG TABLET PO SCH ×2 (09:35→17:16)
[2017-08-25] MEDS: PALIPERIDONE 6 MG ER TABLET PO SCH ×2 (09:35→17:16)
[2017-08-25] MEDS: MEGESTROL ACETATE 400 MG/10 ML SUSPENSION UDCUP PO SCH ×2 (09:36→17:16)
[2017-08-25] MEDS: RisperiDONE 3 MG TABLET PO SCH ×2 (09:36→17:16)
[2017-08-25 19:03] VITALS: BP 123/88
[2017-08-25] MEDS: TraZODone HCL 100 MG TABLET PO SCH (20:56)
[2017-08-26] MEDS: LEVOTHYROXINE SODIUM 75 MCG TABLET PO SCH (06:47)
[2017-08-26] MEDS: PANTOPRAZOLE SODIUM 40 MG DR TABLET PO SCH (06:47)
[2017-08-26] MEDS: DIVALPROEX SODIUM 250 MG DR TABLET PO SCH ×2 (08:06→18:23)
[2017-08-26] MEDS: BENZTROPINE MESYLATE 2 MG TABLET PO SCH ×2 (08:06→18:22)
[2017-08-26] MEDS: DOCUSATE SODIUM 100 MG CAPSULE PO SCH ×2 (08:06→18:23)
[2017-08-26] MEDS: RisperiDONE 3 MG TABLET PO SCH ×2 (08:06→18:22)
[2017-08-26] MEDS: PALIPERIDONE 6 MG ER TABLET PO SCH ×2 (08:06→18:20)
[2017-08-26] MEDS: MEGESTROL ACETATE 400 MG/10 ML SUSPENSION UDCUP PO SCH ×2 (08:07→18:20)
[2017-08-26] MEDS: NICOTINE 21 MG/24 HOUR PATCH TD SCH (08:08)
[2017-08-26 16:00] VITALS: BP 111/65
[2017-08-26] MEDS: TraZODone HCL 100 MG TABLET PO SCH (20:11)
[2017-08-27] MEDS: LEVOTHYROXINE SODIUM 75 MCG TABLET PO SCH (06:53)
[2017-08-27] MEDS: PANTOPRAZOLE SODIUM 40 MG DR TABLET PO SCH (06:53)
[2017-08-27] MEDS: DOCUSATE SODIUM 100 MG CAPSULE PO SCH ×2 (09:00→17:58)
[2017-08-27] MEDS: RisperiDONE 3 MG TABLET PO SCH ×2 (09:00→17:58)
[2017-08-27] MEDS: BENZTROPINE MESYLATE 2 MG TABLET PO SCH ×2 (09:00→17:58)
[2017-08-27] MEDS: NICOTINE 21 MG/24 HOUR PATCH TD SCH (09:00)
[2017-08-27] MEDS: PALIPERIDONE 6 MG ER TABLET PO SCH ×2 (09:02→17:58)
[2017-08-27] MEDS: MEGESTROL ACETATE 400 MG/10 ML SUSPENSION UDCUP PO SCH ×2 (09:03→17:58)
[2017-08-27] MEDS: DIVALPROEX SODIUM 250 MG DR TABLET PO SCH ×2 (09:03→17:58)
[2017-08-27 16:30] VITALS: BP 103/66
[2017-08-27] MEDS: MAG HYDROX/AL HYDROX/SIMETH ES 30 ML SUSPENSION UDCUP PO PRN (19:05)
[2017-08-27] MEDS: TraZODone HCL 100 MG TABLET PO SCH (20:30)
[2017-08-28] MEDS: PANTOPRAZOLE SODIUM 40 MG DR TABLET PO SCH (06:45)
[2017-08-28] MEDS: LEVOTHYROXINE SODIUM 75 MCG TABLET PO SCH (06:45)
[2017-08-28] MEDS: DIVALPROEX SODIUM 250 MG DR TABLET PO SCH ×2 (08:58→16:26)
[2017-08-28] MEDS: NICOTINE 21 MG/24 HOUR PATCH TD SCH (08:58)
[2017-08-28] MEDS: BENZTROPINE MESYLATE 2 MG TABLET PO SCH ×2 (08:58→16:28)
[2017-08-28] MEDS: MEGESTROL ACETATE 400 MG/10 ML SUSPENSION UDCUP PO SCH ×2 (08:58→16:26)
[2017-08-28] MEDS: DOCUSATE SODIUM 100 MG CAPSULE PO SCH ×2 (08:58→16:27)
[2017-08-28] MEDS: RisperiDONE 3 MG TABLET PO SCH ×2 (08:58→16:29)
[2017-08-28] MEDS: PALIPERIDONE 6 MG ER TABLET PO SCH ×2 (08:58→16:26)
[2017-08-28 09:55] VITALS: BP 103/63
[2017-08-28 10:02] VITALS: BP 103/63
[2017-08-28 16:21] VITALS: BP 121/85
[2017-08-28] MEDS: TraZODone HCL 100 MG TABLET PO SCH (22:11)
[2017-08-29] MEDS: LEVOTHYROXINE SODIUM 75 MCG TABLET PO SCH (06:57)
[2017-08-29] MEDS: PANTOPRAZOLE SODIUM 40 MG DR TABLET PO SCH (06:57)
[2017-08-29] MEDS: NICOTINE 21 MG/24 HOUR PATCH TD SCH (09:00)
[2017-08-29] MEDS: DIVALPROEX SODIUM 250 MG DR TABLET PO SCH ×2 (10:01→18:38)
[2017-08-29] MEDS: DOCUSATE SODIUM 100 MG CAPSULE PO SCH ×2 (10:02→18:37)
[2017-08-29] MEDS: MEGESTROL ACETATE 400 MG/10 ML SUSPENSION UDCUP PO SCH ×2 (10:02→18:31)
[2017-08-29] MEDS: RisperiDONE 3 MG TABLET PO SCH ×2 (10:02→18:37)
[2017-08-29] MEDS: PALIPERIDONE 6 MG ER TABLET PO SCH ×2 (10:02→18:31)
[2017-08-29] MEDS: BENZTROPINE MESYLATE 2 MG TABLET PO SCH ×2 (10:03→18:37)
[2017-08-29] MEDS: TraZODone HCL 100 MG TABLET PO SCH (20:47)
[2017-08-30] MEDS: PANTOPRAZOLE SODIUM 40 MG DR TABLET PO SCH (06:59)
[2017-08-30] MEDS: LEVOTHYROXINE SODIUM 75 MCG TABLET PO SCH (06:59)
[2017-08-30] MEDS: NICOTINE 21 MG/24 HOUR PATCH TD SCH (09:00)
[2017-08-30] MEDS: BENZTROPINE MESYLATE 2 MG TABLET PO SCH ×2 (09:48→18:34)
[2017-08-30] MEDS: DIVALPROEX SODIUM 250 MG DR TABLET PO SCH ×2 (09:48→18:35)
[2017-08-30] MEDS: PALIPERIDONE 6 MG ER TABLET PO SCH ×2 (09:49→18:35)
[2017-08-30] MEDS: RisperiDONE 3 MG TABLET PO SCH ×2 (09:49→18:35)
[2017-08-30] MEDS: DOCUSATE SODIUM 100 MG CAPSULE PO SCH ×2 (09:49→18:35)
[2017-08-30] MEDS: MEGESTROL ACETATE 400 MG/10 ML SUSPENSION UDCUP PO SCH ×2 (09:50→18:34)
[2017-08-30] MEDS: TraZODone HCL 100 MG TABLET PO SCH (20:31)
[2017-08-31] MEDS: LEVOTHYROXINE SODIUM 75 MCG TABLET PO SCH (06:05)
[2017-08-31] MEDS: PANTOPRAZOLE SODIUM 40 MG DR TABLET PO SCH (06:06)
[2017-08-31] MEDS: BENZTROPINE MESYLATE 2 MG TABLET PO SCH ×2 (09:00→16:29)
[2017-08-31] MEDS: DIVALPROEX SODIUM 250 MG DR TABLET PO SCH ×2 (09:00→16:29)
[2017-08-31] MEDS: NICOTINE 21 MG/24 HOUR PATCH TD SCH (09:00)
[2017-08-31] MEDS: MEGESTROL ACETATE 400 MG/10 ML SUSPENSION UDCUP PO SCH ×2 (09:00→16:30)
[2017-08-31] MEDS: PALIPERIDONE 6 MG ER TABLET PO SCH ×2 (09:00→16:29)
[2017-08-31] MEDS: RisperiDONE 3 MG TABLET PO SCH ×2 (09:00→16:30)
[2017-08-31] MEDS: DOCUSATE SODIUM 100 MG CAPSULE PO SCH ×2 (09:00→16:30)
[2017-08-31 17:10] VITALS: BP 113/71
[2017-08-31] MEDS: TraZODone HCL 100 MG TABLET PO SCH (20:18)
[2017-09-01 06:47] LABS: CALCIUM, TOTAL 8.6 mg/dL (8.8-10.5); CREATININE 1.11 mg/dL (0.60-1.30); POTASSIUM 3.9 mmol/L (3.5-5.1)
[2017-09-01] MEDS: PANTOPRAZOLE SODIUM 40 MG DR TABLET PO SCH (07:01)
[2017-09-01] MEDS: LEVOTHYROXINE SODIUM 75 MCG TABLET PO SCH (07:01)
[2017-09-01] MEDS: NICOTINE 21 MG/24 HOUR PATCH TD SCH (09:00)
[2017-09-01] MEDS: PALIPERIDONE 6 MG ER TABLET PO SCH (09:04)
[2017-09-01] MEDS: DIVALPROEX SODIUM 250 MG DR TABLET PO SCH ×2 (09:05→16:37)
[2017-09-01] MEDS: BENZTROPINE MESYLATE 2 MG TABLET PO SCH ×2 (09:05→16:36)
[2017-09-01] MEDS: DOCUSATE SODIUM 100 MG CAPSULE PO SCH ×2 (09:05→16:36)
[2017-09-01] MEDS: RisperiDONE 3 MG TABLET PO SCH ×2 (09:05→16:37)
[2017-09-01] MEDS: MEGESTROL ACETATE 400 MG/10 ML SUSPENSION UDCUP PO SCH (09:06)
[2017-09-01] MEDS: DRONABINOL 2.5 MG CAPSULE PO SCH (17:14)
[2017-09-01 18:58] VITALS: BP 118/67
[2017-09-01] MEDS: TraZODone HCL 100 MG TABLET PO SCH (21:03)
[2017-09-02] MEDS: PANTOPRAZOLE SODIUM 40 MG DR TABLET PO SCH (06:56)
[2017-09-02] MEDS: LEVOTHYROXINE SODIUM 75 MCG TABLET PO SCH (06:56)
[2017-09-02] MEDS: DRONABINOL 2.5 MG CAPSULE PO SCH ×2 (06:58→18:18)
[2017-09-02] MEDS: NICOTINE 21 MG/24 HOUR PATCH TD SCH (09:00)
[2017-09-02] MEDS: BENZTROPINE MESYLATE 2 MG TABLET PO SCH ×2 (10:34→18:18)
[2017-09-02] MEDS: RisperiDONE 3 MG TABLET PO SCH ×2 (10:34→18:18)
[2017-09-02] MEDS: DOCUSATE SODIUM 100 MG CAPSULE PO SCH ×2 (10:34→18:18)
[2017-09-02] MEDS: DIVALPROEX SODIUM 250 MG DR TABLET PO SCH ×2 (10:34→18:18)
[2017-09-02 12:14] VITALS: BP 126/73
[2017-09-02 16:00] VITALS: BP 118/68
[2017-09-02] MEDS: TraZODone HCL 100 MG TABLET PO SCH (21:16)
[2017-09-02] MEDS: CYPROHEPTADINE HCL 4 MG TABLET PO SCH (21:16)
[2017-09-03] MEDS: DRONABINOL 2.5 MG CAPSULE PO SCH ×2 (07:04→17:59)
[2017-09-03] MEDS: PANTOPRAZOLE SODIUM 40 MG DR TABLET PO SCH (07:04)
[2017-09-03] MEDS: LEVOTHYROXINE SODIUM 75 MCG TABLET PO SCH (07:05)
[2017-09-03 08:23] VITALS: BP 117/60
[2017-09-03] MEDS: NICOTINE 21 MG/24 HOUR PATCH TD SCH (09:00)
[2017-09-03] MEDS: RisperiDONE 3 MG TABLET PO SCH ×2 (09:44→18:00)
[2017-09-03] MEDS: DIVALPROEX SODIUM 250 MG DR TABLET PO SCH ×2 (09:44→18:00)
[2017-09-03] MEDS: BENZTROPINE MESYLATE 2 MG TABLET PO SCH ×2 (09:44→18:00)
[2017-09-03] MEDS: CYPROHEPTADINE HCL 4 MG TABLET PO SCH ×4 (09:44→21:49)
[2017-09-03] MEDS: DOCUSATE SODIUM 100 MG CAPSULE PO SCH ×2 (09:44→18:00)
[2017-09-03 16:44] VITALS: BP 125/73
[2017-09-03] MEDS: TraZODone HCL 100 MG TABLET PO SCH (21:49)
[2017-09-04] MEDS: PANTOPRAZOLE SODIUM 40 MG DR TABLET PO SCH (06:57)
[2017-09-04] MEDS: LEVOTHYROXINE SODIUM 75 MCG TABLET PO SCH (06:58)
[2017-09-04] MEDS: DRONABINOL 2.5 MG CAPSULE PO SCH ×2 (06:58→15:59)
[2017-09-04 08:15] VITALS: BP 126/71
[2017-09-04] MEDS: CYPROHEPTADINE HCL 4 MG TABLET PO SCH ×5 (09:00→20:05)
[2017-09-04] MEDS: NICOTINE 21 MG/24 HOUR PATCH TD SCH (09:00)
[2017-09-04] MEDS: DIVALPROEX SODIUM 250 MG DR TABLET PO SCH ×3 (09:00→15:59)
[2017-09-04] MEDS: DOCUSATE SODIUM 100 MG CAPSULE PO SCH ×3 (09:00→15:59)
[2017-09-04] MEDS: BENZTROPINE MESYLATE 2 MG TABLET PO SCH ×3 (09:00→15:59)
[2017-09-04] MEDS: RisperiDONE 3 MG TABLET PO SCH ×2 (10:03→15:59)
[2017-09-04] MEDS ORDERED: HALOPERIDOL LACTATE 5 MG/ML VIAL IM PRN (10:45)
[2017-09-04] MEDS: HALOPERIDOL 5 MG TABLET PO PRN (15:58)
[2017-09-04 17:11] VITALS: BP 121/77
[2017-09-04] MEDS: TraZODone HCL 100 MG TABLET PO SCH (20:05)
[2017-09-05 06:48] LABS: BASOPHILS % (AUTO) 0.4 % (0.0-2.0); EOSINOPHILS % (AUTO) 0.4 % (1.0-6.0); HEMATOCRIT 47.3 % (36-46); HEMOGLOBIN 16.7 g/dL (12.0-16.0); LYMPHOCYTES # (AUTO) 2.6 K/uL (1.0-4.8); LYMPHOCYTES % (AUTO) 43.2 % (22.0-44.0); MEAN CORPUSCULAR HEMOGLOBIN 33.8 pg (26.0-34.0); MEAN CORPUSCULAR HGB CONC 35.4 G/dL (31.0-37.0); MEAN CORPUSCULAR VOLUME 96 fL (80-100); MONOCYTES # (AUTO) 0.7 K/uL (0.1-1.0); MONOCYTES % (AUTO) 11.1 % (2.0-9.0); NEUTROPHILS # (AUTO) 2.7 K/uL (1.8-7.7); NEUTROPHILS % (AUTO) 44.9 % (40.0-70.0); PLATELET COUNT (AUTO) 134 K/uL (150-450); RED BLOOD CELL COUNT(AUTO) 4.95 MIL/uL (4.00-5.20); RED CELL DISTRIBUTION WIDTH 14.1 % (11.5-14.5)
[2017-09-05] MEDS: DRONABINOL 2.5 MG CAPSULE PO SCH ×2 (06:56→17:40)
[2017-09-05] MEDS: PANTOPRAZOLE SODIUM 40 MG DR TABLET PO SCH (06:56)
[2017-09-05] MEDS: LEVOTHYROXINE SODIUM 75 MCG TABLET PO SCH (06:57)
[2017-09-05 06:58] LABS: CALCIUM, TOTAL 8.6 mg/dL (8.8-10.5); CREATININE 1.05 mg/dL (0.60-1.30); POTASSIUM 4.3 mmol/L (3.5-5.1)
[2017-09-05] MEDS: DOCUSATE SODIUM 100 MG CAPSULE PO SCH ×2 (08:45→17:39)
[2017-09-05] MEDS: DIVALPROEX SODIUM 250 MG DR TABLET PO SCH ×2 (08:45→17:39)
[2017-09-05] MEDS: RisperiDONE 3 MG TABLET PO SCH ×2 (08:46→17:40)
[2017-09-05] MEDS: BENZTROPINE MESYLATE 2 MG TABLET PO SCH ×2 (08:46→17:40)
[2017-09-05] MEDS: NICOTINE 21 MG/24 HOUR PATCH TD SCH (08:46)
[2017-09-05] MEDS: CYPROHEPTADINE HCL 4 MG TABLET PO SCH ×3 (08:46→17:40)
[2017-09-05] MEDS: TraZODone HCL 100 MG TABLET PO SCH (21:01)
[2017-09-06] MEDS: LEVOTHYROXINE SODIUM 75 MCG TABLET PO SCH (06:43)
[2017-09-06] MEDS: DRONABINOL 2.5 MG CAPSULE PO SCH ×2 (06:44→17:31)
[2017-09-06] MEDS: PANTOPRAZOLE SODIUM 40 MG DR TABLET PO SCH (06:44)
[2017-09-06] MEDS: DIVALPROEX SODIUM 250 MG DR TABLET PO SCH ×2 (08:31→17:30)
[2017-09-06] MEDS: NICOTINE 21 MG/24 HOUR PATCH TD SCH (08:31)
[2017-09-06] MEDS: BENZTROPINE MESYLATE 2 MG TABLET PO SCH ×2 (08:31→17:30)
[2017-09-06] MEDS: RisperiDONE 3 MG TABLET PO SCH ×2 (08:31→17:30)
[2017-09-06] MEDS: DOCUSATE SODIUM 100 MG CAPSULE PO SCH ×2 (08:31→17:30)
[2017-09-06] MEDS ORDERED: ALBUTEROL SULFATE HFA 90 MCG/PUFF 8 GM INHALER IH PRN (09:15)
[2017-09-06] MEDS: ACETAMINOPHEN 325 MG TABLET PO PRN (12:21)
[2017-09-06 12:22] VITALS: BP 112/82
[2017-09-06 16:54] VITALS: BP 121/74
[2017-09-06] MEDS: TraZODone HCL 100 MG TABLET PO SCH (21:37)
[2017-09-07] MEDS: DRONABINOL 2.5 MG CAPSULE PO SCH ×2 (06:55→16:31)
[2017-09-07] MEDS: LEVOTHYROXINE SODIUM 75 MCG TABLET PO SCH (06:55)
[2017-09-07] MEDS: PANTOPRAZOLE SODIUM 40 MG DR TABLET PO SCH (06:55)
[2017-09-07] MEDS: BENZTROPINE MESYLATE 2 MG TABLET PO SCH ×2 (08:40→16:31)
[2017-09-07] MEDS: DOCUSATE SODIUM 100 MG CAPSULE PO SCH ×2 (08:40→16:31)
[2017-09-07] MEDS: NICOTINE 21 MG/24 HOUR PATCH TD SCH (08:41)
[2017-09-07] MEDS: DIVALPROEX SODIUM 250 MG DR TABLET PO SCH ×2 (08:41→16:31)
[2017-09-07] MEDS: RisperiDONE 3 MG TABLET PO SCH ×2 (08:41→16:33)
[2017-09-07 17:05] VITALS: BP 120/67
[2017-09-07] MEDS: TraZODone HCL 100 MG TABLET PO SCH (21:34)
[2017-09-08] MEDS: LEVOTHYROXINE SODIUM 75 MCG TABLET PO SCH (06:35)
[2017-09-08] MEDS: PANTOPRAZOLE SODIUM 40 MG DR TABLET PO SCH (06:35)
[2017-09-08] MEDS: DRONABINOL 2.5 MG CAPSULE PO SCH ×2 (06:35→16:21)
[2017-09-08 08:14] VITALS: BP 123/56
[2017-09-08] MEDS: DIVALPROEX SODIUM 250 MG DR TABLET PO SCH ×2 (08:16→16:22)
[2017-09-08] MEDS: DOCUSATE SODIUM 100 MG CAPSULE PO SCH ×2 (08:16→16:22)
[2017-09-08] MEDS: BENZTROPINE MESYLATE 2 MG TABLET PO SCH ×2 (08:17→16:21)
[2017-09-08] MEDS: NICOTINE 21 MG/24 HOUR PATCH TD SCH (08:17)
[2017-09-08] MEDS: RisperiDONE 3 MG TABLET PO SCH ×2 (08:17→16:22)
[2017-09-08 17:00] VITALS: BP 106/55
[2017-09-08] MEDS: TraZODone HCL 100 MG TABLET PO SCH (21:26)
[2017-09-09] MEDS: LEVOTHYROXINE SODIUM 75 MCG TABLET PO SCH (06:50)
[2017-09-09] MEDS: DRONABINOL 2.5 MG CAPSULE PO SCH ×2 (06:50→16:18)
[2017-09-09] MEDS: PANTOPRAZOLE SODIUM 40 MG DR TABLET PO SCH (06:50)
[2017-09-09] MEDS: BENZTROPINE MESYLATE 2 MG TABLET PO SCH ×2 (08:06→16:17)
[2017-09-09] MEDS: DIVALPROEX SODIUM 250 MG DR TABLET PO SCH ×2 (08:06→16:17)
[2017-09-09] MEDS: DOCUSATE SODIUM 100 MG CAPSULE PO SCH ×2 (08:06→16:17)
[2017-09-09] MEDS: RisperiDONE 3 MG TABLET PO SCH ×2 (08:06→16:17)
[2017-09-09] MEDS: NICOTINE 21 MG/24 HOUR PATCH TD SCH (08:07)
[2017-09-09 08:12] VITALS: BP 112/61
[2017-09-09 16:47] VITALS: BP 111/62
[2017-09-09] MEDS: TraZODone HCL 100 MG TABLET PO SCH (20:20)
[2017-09-10] MEDS: LEVOTHYROXINE SODIUM 75 MCG TABLET PO SCH (06:51)
[2017-09-10] MEDS: PANTOPRAZOLE SODIUM 40 MG DR TABLET PO SCH (06:51)
[2017-09-10] MEDS: DRONABINOL 2.5 MG CAPSULE PO SCH ×2 (06:51→16:10)
[2017-09-10] MEDS: NICOTINE 21 MG/24 HOUR PATCH TD SCH (09:00)
[2017-09-10] MEDS: RisperiDONE 3 MG TABLET PO SCH ×2 (09:11→16:10)
[2017-09-10] MEDS: DIVALPROEX SODIUM 250 MG DR TABLET PO SCH ×2 (09:11→16:11)
[2017-09-10] MEDS: BENZTROPINE MESYLATE 2 MG TABLET PO SCH ×2 (09:11→16:10)
[2017-09-10] MEDS: DOCUSATE SODIUM 100 MG CAPSULE PO SCH ×2 (09:11→16:10)
[2017-09-10 10:23] VITALS: BP 112/72
[2017-09-10] MEDS: TraZODone HCL 100 MG TABLET PO SCH (20:46)
[2017-09-10 21:20] VITALS: BP 107/78
[2017-09-11] MEDS: LEVOTHYROXINE SODIUM 75 MCG TABLET PO SCH (06:59)
[2017-09-11] MEDS: PANTOPRAZOLE SODIUM 40 MG DR TABLET PO SCH (06:59)
[2017-09-11] MEDS: DRONABINOL 2.5 MG CAPSULE PO SCH ×2 (06:59→17:55)
[2017-09-11] MEDS: DOCUSATE SODIUM 100 MG CAPSULE PO SCH ×2 (08:36→17:55)
[2017-09-11] MEDS: BENZTROPINE MESYLATE 2 MG TABLET PO SCH ×2 (08:36→17:55)
[2017-09-11] MEDS: DIVALPROEX SODIUM 250 MG DR TABLET PO SCH ×2 (08:36→17:55)
[2017-09-11] MEDS: NICOTINE 21 MG/24 HOUR PATCH TD SCH (08:37)
[2017-09-11] MEDS: RisperiDONE 3 MG TABLET PO SCH ×2 (08:37→17:55)
[2017-09-11 16:30] VITALS: BP 120/64
[2017-09-11] MEDS: TraZODone HCL 100 MG TABLET PO SCH (21:37)
[2017-09-12] MEDS: LEVOTHYROXINE SODIUM 75 MCG TABLET PO SCH (07:09)
[2017-09-12] MEDS: PANTOPRAZOLE SODIUM 40 MG DR TABLET PO SCH (07:09)
[2017-09-12] MEDS: DRONABINOL 2.5 MG CAPSULE PO SCH ×2 (07:09→16:07)
[2017-09-12 08:08] VITALS: BP 111/82
[2017-09-12] MEDS: BENZTROPINE MESYLATE 2 MG TABLET PO SCH ×2 (08:41→16:08)
[2017-09-12] MEDS: DIVALPROEX SODIUM 250 MG DR TABLET PO SCH ×2 (08:41→16:07)
[2017-09-12] MEDS: RisperiDONE 3 MG TABLET PO SCH ×2 (08:42→16:07)
[2017-09-12] MEDS: DOCUSATE SODIUM 100 MG CAPSULE PO SCH ×2 (08:42→16:07)
[2017-09-12] MEDS: NICOTINE 21 MG/24 HOUR PATCH TD SCH (09:00)
[2017-09-12] MEDS ORDERED: MAGNESIUM HYDROXIDE SUSPENSION 30 ML UDCUP PO PRN (09:15)
[2017-09-12 22:12] VITALS: BP 112/70
[2017-09-12] MEDS: TraZODone HCL 100 MG TABLET PO SCH (22:15)
[2017-09-13] MEDS: DRONABINOL 2.5 MG CAPSULE PO SCH ×2 (06:35→17:15)
[2017-09-13] MEDS: LEVOTHYROXINE SODIUM 75 MCG TABLET PO SCH (06:35)
[2017-09-13] MEDS: PANTOPRAZOLE SODIUM 40 MG DR TABLET PO SCH (06:35)
[2017-09-13 08:00] VITALS: BP 113/73
[2017-09-13] MEDS: NICOTINE 21 MG/24 HOUR PATCH TD SCH (09:00)
[2017-09-13] MEDS: BENZTROPINE MESYLATE 2 MG TABLET PO SCH ×2 (09:06→17:14)
[2017-09-13] MEDS: DIVALPROEX SODIUM 250 MG DR TABLET PO SCH ×2 (09:06→17:15)
[2017-09-13] MEDS: DOCUSATE SODIUM 100 MG CAPSULE PO SCH ×2 (09:06→17:15)
[2017-09-13] MEDS: RisperiDONE 3 MG TABLET PO SCH ×2 (09:06→17:15)
[2017-09-13 16:32] VITALS: BP 126/68
[2017-09-13] MEDS: TraZODone HCL 100 MG TABLET PO SCH (20:34)
[2017-09-14] MEDS: DRONABINOL 2.5 MG CAPSULE PO SCH ×2 (06:42→16:38)
[2017-09-14] MEDS: LEVOTHYROXINE SODIUM 75 MCG TABLET PO SCH (06:42)
[2017-09-14] MEDS: PANTOPRAZOLE SODIUM 40 MG DR TABLET PO SCH (06:42)
[2017-09-14 08:00] VITALS: BP 113/66
[2017-09-14] MEDS: DOCUSATE SODIUM 100 MG CAPSULE PO SCH ×2 (08:46→16:38)
[2017-09-14] MEDS: BENZTROPINE MESYLATE 2 MG TABLET PO SCH ×2 (08:46→16:38)
[2017-09-14] MEDS: RisperiDONE 3 MG TABLET PO SCH ×2 (08:46→16:38)
[2017-09-14] MEDS: DIVALPROEX SODIUM 250 MG DR TABLET PO SCH ×2 (08:46→16:42)
[2017-09-14] MEDS: NICOTINE 21 MG/24 HOUR PATCH TD SCH (09:00)
[2017-09-14 18:13] VITALS: BP 125/69
[2017-09-14] MEDS: TraZODone HCL 100 MG TABLET PO SCH (20:23)
[2017-09-15] MEDS: PANTOPRAZOLE SODIUM 40 MG DR TABLET PO SCH (06:44)
[2017-09-15] MEDS: LEVOTHYROXINE SODIUM 75 MCG TABLET PO SCH (06:44)
[2017-09-15] MEDS: DRONABINOL 2.5 MG CAPSULE PO SCH ×2 (06:46→16:13)
[2017-09-15] MEDS: DIVALPROEX SODIUM 250 MG DR TABLET PO SCH ×2 (08:30→16:13)
[2017-09-15] MEDS: RisperiDONE 3 MG TABLET PO SCH ×2 (08:30→16:13)
[2017-09-15] MEDS: DOCUSATE SODIUM 100 MG CAPSULE PO SCH ×2 (08:30→16:13)
[2017-09-15] MEDS: BENZTROPINE MESYLATE 2 MG TABLET PO SCH ×2 (08:31→16:13)
[2017-09-15] MEDS: NICOTINE 21 MG/24 HOUR PATCH TD SCH (09:00)
[2017-09-15 09:59] VITALS: BP 108/70
[2017-09-15 16:54] VITALS: BP 123/89
[2017-09-15] MEDS: TraZODone HCL 100 MG TABLET PO SCH (20:20)
[2017-09-16] MEDS: PANTOPRAZOLE SODIUM 40 MG DR TABLET PO SCH (06:54)
[2017-09-16] MEDS: LEVOTHYROXINE SODIUM 75 MCG TABLET PO SCH (06:54)
[2017-09-16] MEDS: DRONABINOL 2.5 MG CAPSULE PO SCH ×2 (06:55→18:06)
[2017-09-16 08:00] VITALS: BP 115/66
[2017-09-16] MEDS: NICOTINE 21 MG/24 HOUR PATCH TD SCH (09:00)
[2017-09-16] MEDS: BENZTROPINE MESYLATE 2 MG TABLET PO SCH ×2 (10:01→18:06)
[2017-09-16] MEDS: DIVALPROEX SODIUM 250 MG DR TABLET PO SCH ×2 (10:01→18:06)
[2017-09-16] MEDS: RisperiDONE 3 MG TABLET PO SCH ×2 (10:01→18:06)
[2017-09-16] MEDS: DOCUSATE SODIUM 100 MG CAPSULE PO SCH ×2 (10:01→18:06)
[2017-09-16 17:42] VITALS: BP 128/74
[2017-09-16] MEDS: TraZODone HCL 100 MG TABLET PO SCH (20:35)
[2017-09-17] MEDS: PANTOPRAZOLE SODIUM 40 MG DR TABLET PO SCH (06:48)
[2017-09-17] MEDS: LEVOTHYROXINE SODIUM 75 MCG TABLET PO SCH (06:48)
[2017-09-17] MEDS: DRONABINOL 2.5 MG CAPSULE PO SCH ×2 (06:48→16:16)
[2017-09-17] MEDS: DIVALPROEX SODIUM 250 MG DR TABLET PO SCH ×2 (08:25→16:15)
[2017-09-17] MEDS: DOCUSATE SODIUM 100 MG CAPSULE PO SCH ×2 (08:25→16:15)
[2017-09-17] MEDS: BENZTROPINE MESYLATE 2 MG TABLET PO SCH ×2 (08:25→16:15)
[2017-09-17] MEDS: RisperiDONE 3 MG TABLET PO SCH ×2 (08:26→16:15)
[2017-09-17] MEDS: NICOTINE 21 MG/24 HOUR PATCH TD SCH (08:30)
[2017-09-17 10:14] VITALS: BP 131/76
[2017-09-17 16:25] VITALS: BP 115/86
[2017-09-17] MEDS: TraZODone HCL 100 MG TABLET PO SCH (20:36)
[2017-09-18] MEDS: LEVOTHYROXINE SODIUM 75 MCG TABLET PO SCH (06:25)
[2017-09-18] MEDS: PANTOPRAZOLE SODIUM 40 MG DR TABLET PO SCH (06:25)
[2017-09-18] MEDS: DRONABINOL 2.5 MG CAPSULE PO SCH ×2 (06:25→16:18)
[2017-09-18 09:00] VITALS: BP 107/74
[2017-09-18] MEDS: NICOTINE 21 MG/24 HOUR PATCH TD SCH (09:00)
[2017-09-18] MEDS: DIVALPROEX SODIUM 250 MG DR TABLET PO SCH ×2 (09:27→16:19)
[2017-09-18] MEDS: DOCUSATE SODIUM 100 MG CAPSULE PO SCH ×2 (09:27→16:18)
[2017-09-18] MEDS: RisperiDONE 3 MG TABLET PO SCH ×2 (09:27→16:18)
[2017-09-18] MEDS: BENZTROPINE MESYLATE 2 MG TABLET PO SCH ×2 (09:27→16:18)
[2017-09-18 18:27] VITALS: BP 119/81
[2017-09-18] MEDS: TraZODone HCL 100 MG TABLET PO SCH (20:11)
[2017-09-19] MEDS: LEVOTHYROXINE SODIUM 75 MCG TABLET PO SCH (06:53)
[2017-09-19] MEDS: PANTOPRAZOLE SODIUM 40 MG DR TABLET PO SCH (06:53)
[2017-09-19] MEDS: DRONABINOL 2.5 MG CAPSULE PO SCH ×2 (06:54→16:46)
[2017-09-19 08:00] VITALS: BP 106/71
[2017-09-19] MEDS: NICOTINE 21 MG/24 HOUR PATCH TD SCH (09:00)
[2017-09-19] MEDS: DIVALPROEX SODIUM 250 MG DR TABLET PO SCH ×2 (09:18→16:46)
[2017-09-19] MEDS: DOCUSATE SODIUM 100 MG CAPSULE PO SCH ×2 (09:19→16:46)
[2017-09-19] MEDS: BENZTROPINE MESYLATE 2 MG TABLET PO SCH ×2 (09:19→16:45)
[2017-09-19] MEDS: RisperiDONE 3 MG TABLET PO SCH ×2 (09:19→16:47)
[2017-09-19] MEDS: PALIPERIDONE PALMITATE 234 MG/1.5 ML SYRINGE IM SCH (09:20)
[2017-09-19 16:00] VITALS: BP 132/86
[2017-09-19] MEDS: TraZODone HCL 100 MG TABLET PO SCH (21:00)
[2017-09-20] MEDS: LEVOTHYROXINE SODIUM 75 MCG TABLET PO SCH (06:52)
[2017-09-20] MEDS: DRONABINOL 2.5 MG CAPSULE PO SCH ×2 (06:52→16:08)
[2017-09-20] MEDS: PANTOPRAZOLE SODIUM 40 MG DR TABLET PO SCH (06:52)
[2017-09-20 08:00] VITALS: BP 115/71
[2017-09-20] MEDS: DOCUSATE SODIUM 100 MG CAPSULE PO SCH ×2 (08:32→16:08)
[2017-09-20] MEDS: DIVALPROEX SODIUM 250 MG DR TABLET PO SCH ×2 (08:32→16:08)
[2017-09-20] MEDS: BENZTROPINE MESYLATE 2 MG TABLET PO SCH ×2 (08:32→16:08)
[2017-09-20] MEDS: RisperiDONE 3 MG TABLET PO SCH ×2 (08:32→16:08)
[2017-09-20] MEDS: NICOTINE 21 MG/24 HOUR PATCH TD SCH (09:00)
[2017-09-20 16:24] VITALS: BP 133/85
[2017-09-20] MEDS: TraZODone HCL 100 MG TABLET PO SCH (20:57)
[2017-09-21] MEDS: PANTOPRAZOLE SODIUM 40 MG DR TABLET PO SCH (06:35)
[2017-09-21] MEDS: DRONABINOL 2.5 MG CAPSULE PO SCH ×2 (06:35→16:36)
[2017-09-21] MEDS: LEVOTHYROXINE SODIUM 75 MCG TABLET PO SCH (06:35)
[2017-09-21] MEDS: BENZTROPINE MESYLATE 2 MG TABLET PO SCH ×2 (07:43→16:36)
[2017-09-21] MEDS: DOCUSATE SODIUM 100 MG CAPSULE PO SCH ×2 (07:43→16:36)
[2017-09-21] MEDS: DIVALPROEX SODIUM 250 MG DR TABLET PO SCH ×2 (07:43→16:36)
[2017-09-21] MEDS: RisperiDONE 3 MG TABLET PO SCH ×2 (07:44→16:36)
[2017-09-21 08:05] VITALS: BP 120/58
[2017-09-21] MEDS: NICOTINE 21 MG/24 HOUR PATCH TD SCH (09:00)
[2017-09-21 16:57] VITALS: BP 112/61
[2017-09-21] MEDS: TraZODone HCL 100 MG TABLET PO SCH (20:50)
[2017-09-22] MEDS: PANTOPRAZOLE SODIUM 40 MG DR TABLET PO SCH (06:56)
[2017-09-22] MEDS: LEVOTHYROXINE SODIUM 75 MCG TABLET PO SCH (06:56)
[2017-09-22] MEDS: DRONABINOL 2.5 MG CAPSULE PO SCH ×2 (06:56→17:00)
[2017-09-22 08:00] VITALS: BP 117/57
[2017-09-22] MEDS: DOCUSATE SODIUM 100 MG CAPSULE PO SCH ×2 (08:20→17:00)
[2017-09-22] MEDS: DIVALPROEX SODIUM 250 MG DR TABLET PO SCH ×2 (08:20→17:00)
[2017-09-22] MEDS: BENZTROPINE MESYLATE 2 MG TABLET PO SCH ×2 (08:20→17:00)
[2017-09-22] MEDS: RisperiDONE 3 MG TABLET PO SCH ×2 (08:21→17:00)
[2017-09-22] MEDS: NICOTINE 21 MG/24 HOUR PATCH TD SCH (09:00)
[2017-09-22 16:45] VITALS: BP 114/71
[2017-09-22] MEDS: TraZODone HCL 100 MG TABLET PO SCH (21:05)
[2017-09-23] MEDS: PANTOPRAZOLE SODIUM 40 MG DR TABLET PO SCH (06:51)
[2017-09-23] MEDS: DRONABINOL 2.5 MG CAPSULE PO SCH ×2 (06:51→17:22)
[2017-09-23] MEDS: LEVOTHYROXINE SODIUM 75 MCG TABLET PO SCH (06:51)
[2017-09-23 08:31] VITALS: BP 120/56
[2017-09-23] MEDS: NICOTINE 21 MG/24 HOUR PATCH TD SCH (09:00)
[2017-09-23] MEDS: DOCUSATE SODIUM 100 MG CAPSULE PO SCH ×2 (09:55→17:23)
[2017-09-23] MEDS: RisperiDONE 3 MG TABLET PO SCH ×2 (09:55→17:22)
[2017-09-23] MEDS: BENZTROPINE MESYLATE 2 MG TABLET PO SCH ×2 (09:55→17:22)
[2017-09-23] MEDS: DIVALPROEX SODIUM 250 MG DR TABLET PO SCH ×2 (09:55→17:23)
[2017-09-23 16:00] VITALS: BP 127/91
[2017-09-23] MEDS: TraZODone HCL 100 MG TABLET PO SCH (20:03)
[2017-09-24] MEDS: LEVOTHYROXINE SODIUM 75 MCG TABLET PO SCH (06:24)
[2017-09-24] MEDS: DRONABINOL 2.5 MG CAPSULE PO SCH ×2 (06:24→16:09)
[2017-09-24] MEDS: PANTOPRAZOLE SODIUM 40 MG DR TABLET PO SCH (06:24)
[2017-09-24] MEDS: BENZTROPINE MESYLATE 2 MG TABLET PO SCH ×2 (08:45→16:09)
[2017-09-24] MEDS: RisperiDONE 3 MG TABLET PO SCH ×2 (08:46→16:09)
[2017-09-24] MEDS: DOCUSATE SODIUM 100 MG CAPSULE PO SCH ×2 (08:46→16:09)
[2017-09-24] MEDS: DIVALPROEX SODIUM 250 MG DR TABLET PO SCH ×2 (08:46→16:10)
[2017-09-24] MEDS: NICOTINE 21 MG/24 HOUR PATCH TD SCH (09:00)
[2017-09-24 11:03] VITALS: BP 118/74
[2017-09-24 20:13] VITALS: BP 136/78
[2017-09-24] MEDS: TraZODone HCL 100 MG TABLET PO SCH (20:55)
[2017-09-25] MEDS: LEVOTHYROXINE SODIUM 75 MCG TABLET PO SCH (07:01)
[2017-09-25] MEDS: PANTOPRAZOLE SODIUM 40 MG DR TABLET PO SCH (07:01)
[2017-09-25] MEDS: DRONABINOL 2.5 MG CAPSULE PO SCH (07:01)
[2017-09-25 08:00] VITALS: BP 148/81
[2017-09-25] MEDS: BENZTROPINE MESYLATE 2 MG TABLET PO SCH (08:52)
[2017-09-25] MEDS: DIVALPROEX SODIUM 250 MG DR TABLET PO SCH (08:52)
[2017-09-25] MEDS: RisperiDONE 3 MG TABLET PO SCH (08:53)
[2017-09-25] MEDS: DOCUSATE SODIUM 100 MG CAPSULE PO SCH (08:53)
[2017-09-25] MEDS: NICOTINE 21 MG/24 HOUR PATCH TD SCH (09:00)
[2017-09-25] MEDS ORDERED: DSS100 PO (13:36)
[2017-09-25] MEDS ORDERED: DRON2.5C14 PO (13:36)
[2017-09-25] MEDS ORDERED: NICO-802 TD (13:37)
[2017-09-25] MEDS ORDERED: PANT40TA25 PO (13:37)
[2017-09-25] MEDS ORDERED: BENZ2TAB10 PO (13:39)
[2017-09-25] MEDS ORDERED: RISP3 PO (13:39)
[2017-09-25] MEDS ORDERED: PALI234D IM (13:39)
[2017-09-25] MEDS ORDERED: TRAZ-220 PO (13:40)
[2017-09-25] MEDS ORDERED: NICO-703 TD (14:04)
== END 2017-09-25 13:55 | DRG 750 ==
LOC: 3EC 13:00 → 3EI 08-13 22:07 → 3EC 08-17 16:00
PROVIDERS: ADMIT Psychiatry & Neurology Psychiatry; ATTEND Psychiatry & Neurology Psychiatry
DX: F25.0 Schizoaffective disorder, bipolar type (principal); Z59.0 Homelessness; J44.9 Chronic obstructive pulmonary disease, unspecified; E03.9 Hypothyroidism, unspecified; K21.9 Gastro-esophageal reflux disease without esophagitis; K59.09 Other constipation; Z88.5 Allergy status to narcotic agent; Z91.013 Allergy to seafood
CPT/HCPCS: 86592; 87081; 87389; 93005; J1200; J1630; J2060; J3535; Q0162; Q0167

== ENCOUNTER 2017-10-01 19:38 | Emergency (ER) | payer MEDICAID, OTHER ==
[~2017-10-01] VITALS: Ht 167.6 cm; Wt 68.2 kg
[~2017-10-01 19:38] MED LIST changes: -ACET-2247 PO; +BENZ2TAB10 PO; -BISA5TAB12 PO; -LORA1TAB3 PO; -MOM30 PO; +NICO-703 TD; +PALI234D IM; -QUET200T PO; +RISP3 PO; +TRAZ-220 PO
[2017-10-01 20:20] LABS: BASOPHILS % (AUTO) 0.5 % (0.0-2.0); EOSINOPHILS % (AUTO) 0.2 % (1.0-6.0); HEMATOCRIT 38.5 % (36-46); HEMOGLOBIN 13.2 g/dL (12.0-16.0); LYMPHOCYTES # (AUTO) 1.8 K/uL (1.0-4.8); MEAN CORPUSCULAR HEMOGLOBIN 32.7 pg (26.0-34.0); MEAN CORPUSCULAR HGB CONC 34.3 G/dL (31.0-37.0); MEAN CORPUSCULAR VOLUME 96 fL (80-100); MONOCYTES # (AUTO) 0.7 K/uL (0.1-1.0); MONOCYTES % (AUTO) 13.6 % (2.0-9.0); NEUTROPHILS # (AUTO) 2.3 K/uL (1.8-7.7); NEUTROPHILS % (AUTO) 48.7 % (40.0-70.0); PLATELET COUNT (AUTO) 130 K/uL (150-450); RED BLOOD CELL COUNT(AUTO) 4.04 MIL/uL (4.00-5.20); RED CELL DISTRIBUTION WIDTH 13.5 % (11.5-14.5)
[2017-10-01 20:27] LABS: ANION GAP 6 mmol/L (8-16); CALCIUM, TOTAL 8.7 mg/dL (8.8-10.5); CARBON DIOXIDE 27 mmol/L (22-29); CHLORIDE 104 mmol/L (98-107); CREATININE 0.92 mg/dL (0.60-1.30); GLOMERULAR FILTR. RATE CALC > 60 mL/min (>60); GLUCOSE,RANDOM 90 mg/dL (70-110); POTASSIUM 3.5 mmol/L (3.5-5.1); SODIUM SERUM 137 mmol/L (136-145); UREA NITROGEN, BLOOD 12 mg/dL (7-18)
[2017-10-01] MEDS ORDERED: HALOPERIDOL 5 MG TABLET PO ONE (20:30)
[2017-10-01] MEDS ORDERED: LORazepam 2 MG TABLET PO ONE (20:30)
[2017-10-01 20:42] LABS: ALANINE AMINOTRANSFERASE 22 U/L (12-78); ALBUMIN 2.7 g/dL (3.4-5.0); ALKALINE PHOSPHATASE 62 U/L (46-116); ASPARTATE AMINOTRANSFERASE 18 U/L (15-37); BILIRUBIN,TOTAL 0.5 mg/dL (0.1-1.0); THYROID STIMULATING HORMONE 2.75 uIU/mL (0.36-3.74); TOTAL PROTEIN, SERUM 5.4 g/dL (6.4-8.2); VALPROIC ACID 112 mcg/mL (50-100)
[2017-10-01 21:00] LABS: APPEARANCE,URINE CLEAR (CLEAR); BILIRUBIN,URINE NEGATIVE (NEGATIVE); GLUCOSE, URINE (UA) NEGATIVE (NEGATIVE); KETONES,URINE NEGATIVE (NEGATIVE); LEUKOCYTE ESTERASE ,URINE TRACE (NEGATIVE); NITRATE,URINE NEGATIVE (NEGATIVE); OCCULT BLOOD,URINE NEGATIVE (NEGATIVE); PROTEIN,URINE NEGATIVE (NEGATIVE)
[2017-10-01 21:05] LABS: AMPHET/METH SCREEN,URINE NEGATIVE (NEGATIVE); BARBITURATE SCREEN, URINE NEGATIVE (NEGATIVE); BENZODIAZEPINES SCREEN,URINE NEGATIVE (NEGATIVE); CANNABINOID SCREEN,URINE NEGATIVE (NEGATIVE); COCAINE SCREEN,URINE NEGATIVE (NEGATIVE); METHADONE SCREEN, URINE NEGATIVE (NEGATIVE); OPIATE SCREEN,URINE NEGATIVE (NEGATIVE)
[2017-10-01 21:08] LABS: PHENCYCLIDINE SCREEN,URINE NEGATIVE (NEGATIVE)
[2017-10-01 21:09] LABS: BACTERIA,URINE Rare /HPF (None Seen); RBC,URINE 0-2 /HPF (0-2); SQUAMOUS EPITHELIAL CELL,UR Few /LPF (None Seen)
[2017-10-01 22:05] VITALS: BP 130/71
[2017-10-03] MEDS ORDERED: DIPH25 IM (01:03)
== END 2017-10-02 01:15 | disposition home or self-care (01) ==
LOC: EMS 19:39
DX: F25.9 Schizoaffective disorder, unspecified (principal); J44.9 Chronic obstructive pulmonary disease, unspecified; F31.9 Bipolar disorder, unspecified; K21.9 Gastro-esophageal reflux disease without esophagitis; Z90.49 Acquired absence of other specified parts of digestive tract; Z91.013 Allergy to seafood; Z88.2 Allergy status to sulfonamides; Z88.5 Allergy status to narcotic agent; Z88.6 Allergy status to analgesic agent; Z79.899 Other long term (current) drug therapy; F17.210 Nicotine dependence, cigarettes, uncomplicated
CPT/HCPCS: 36415; 51701; 80053; 80164; 80307; 81001; 84443; 84703; 85025; 99284; G0480

== ENCOUNTER 2017-10-03 00:57 | Emergency (ER) | payer OTHER ==
[~2017-10-03] VITALS: Ht 167.6 cm; Wt 68.0 kg
[2017-10-03] MEDS ORDERED: DIPH25 IM (01:03)
[2017-10-03 02:11] LABS: BASOPHILS % (AUTO) 0.6 % (0.0-2.0); EOSINOPHILS % (AUTO) 0.2 % (1.0-6.0); HEMATOCRIT 39.3 % (36-46); HEMOGLOBIN 13.6 g/dL (12.0-16.0); LYMPHOCYTES % (AUTO) 43.4 % (22.0-44.0); MEAN CORPUSCULAR HEMOGLOBIN 32.8 pg (26.0-34.0); MEAN CORPUSCULAR HGB CONC 34.5 G/dL (31.0-37.0); MEAN CORPUSCULAR VOLUME 95 fL (80-100); MONOCYTES # (AUTO) 0.6 K/uL (0.1-1.0); NEUTROPHILS # (AUTO) 1.9 K/uL (1.8-7.7); NEUTROPHILS % (AUTO) 41.8 % (40.0-70.0); PLATELET COUNT (AUTO) 146 K/uL (150-450); RED BLOOD CELL COUNT(AUTO) 4.13 MIL/uL (4.00-5.20); RED CELL DISTRIBUTION WIDTH 13.4 % (11.5-14.5)
[2017-10-03 02:20] LABS: ANION GAP 4 mmol/L (8-16); CALCIUM, TOTAL 8.9 mg/dL (8.8-10.5); CARBON DIOXIDE 30 mmol/L (22-29); CHLORIDE 106 mmol/L (98-107); CREATININE 0.88 mg/dL (0.60-1.30); GLOMERULAR FILTR. RATE CALC > 60 mL/min (>60); GLUCOSE,RANDOM 82 mg/dL (70-110); POTASSIUM 3.6 mmol/L (3.5-5.1); SODIUM SERUM 140 mmol/L (136-145); UREA NITROGEN, BLOOD 10 mg/dL (7-18)
[2017-10-03 02:26] LABS: ALANINE AMINOTRANSFERASE 23 U/L (12-78); ALBUMIN 2.8 g/dL (3.4-5.0); ALKALINE PHOSPHATASE 61 U/L (46-116); ASPARTATE AMINOTRANSFERASE 15 U/L (15-37); BILIRUBIN,TOTAL 0.4 mg/dL (0.1-1.0); TOTAL PROTEIN, SERUM 5.5 g/dL (6.4-8.2)
[2017-10-03] MEDS ORDERED: LORazepam 2 MG TABLET PO ONE (03:00)
[2017-10-03] MEDS ORDERED: HALOPERIDOL 5 MG TABLET PO ONE (03:00)
[2017-10-03 03:28] VITALS: BP 130/68
== END 2017-10-03 03:56 | disposition home or self-care (01) ==
LOC: EMS 00:58
DX: R07.89 Other chest pain (principal); J45.909 Unspecified asthma, uncomplicated; J44.9 Chronic obstructive pulmonary disease, unspecified; K21.9 Gastro-esophageal reflux disease without esophagitis; F17.210 Nicotine dependence, cigarettes, uncomplicated; Z88.2 Allergy status to sulfonamides; Z88.6 Allergy status to analgesic agent; Z88.5 Allergy status to narcotic agent; Z91.013 Allergy to seafood
CPT/HCPCS: 93005; 99285

== ENCOUNTER 2017-10-05 17:09 | Emergency (ER) | payer OTHER ==
[~2017-10-05] VITALS: Ht 167.6 cm; Wt 68.2 kg
[~2017-10-05 17:09] MED LIST changes: +DIPH25 IM
[2017-10-05] MEDS ORDERED: ALBU8HFA PO (18:39)
[2017-10-05] MEDS ORDERED: ACETAMINOPHEN 500 MG TABLET PO ONE (18:45)
[2017-10-05 19:05] LABS: BASOPHILS % (AUTO) 0.3 % (0.0-2.0); EOSINOPHILS % (AUTO) 0.3 % (1.0-6.0); HEMATOCRIT 39.4 % (36-46); HEMOGLOBIN 13.7 g/dL (12.0-16.0); LYMPHOCYTES % (AUTO) 35.5 % (22.0-44.0); MEAN CORPUSCULAR HEMOGLOBIN 32.8 pg (26.0-34.0); MEAN CORPUSCULAR HGB CONC 34.8 G/dL (31.0-37.0); MEAN CORPUSCULAR VOLUME 94 fL (80-100); MONOCYTES # (AUTO) 0.6 K/uL (0.1-1.0); MONOCYTES % (AUTO) 9.7 % (2.0-9.0); NEUTROPHILS # (AUTO) 3.1 K/uL (1.8-7.7); NEUTROPHILS % (AUTO) 54.2 % (40.0-70.0); PLATELET COUNT (AUTO) 138 K/uL (150-450); RED BLOOD CELL COUNT(AUTO) 4.17 MIL/uL (4.00-5.20); RED CELL DISTRIBUTION WIDTH 13.4 % (11.5-14.5)
[2017-10-05 19:35] LABS: ANION GAP 8 mmol/L (8-16); CALCIUM, TOTAL 8.8 mg/dL (8.8-10.5); CARBON DIOXIDE 28 mmol/L (22-29); CHLORIDE 103 mmol/L (98-107); GLOMERULAR FILTR. RATE CALC > 60 mL/min (>60); GLUCOSE,RANDOM 80 mg/dL (70-110); POTASSIUM 3.6 mmol/L (3.5-5.1); SODIUM SERUM 139 mmol/L (136-145); UREA NITROGEN, BLOOD 9 mg/dL (7-18)
[2017-10-05 19:42] LABS: ALANINE AMINOTRANSFERASE 17 U/L (12-78); ALBUMIN 2.8 g/dL (3.4-5.0); ALKALINE PHOSPHATASE 59 U/L (46-116); ASPARTATE AMINOTRANSFERASE 14 U/L (15-37); BILIRUBIN,TOTAL 0.5 mg/dL (0.1-1.0); TOTAL PROTEIN, SERUM 5.5 g/dL (6.4-8.2); VALPROIC ACID 127 mcg/mL (50-100)
[2017-10-05] MEDS ORDERED: LORazepam 2 MG TABLET PO ONE (20:30)
[2017-10-05] MEDS ORDERED: DiphenhydrAMINE HCL 50 MG/ML VIAL IM ONE (20:45)
[2017-10-05] MEDS ORDERED: HALOPERIDOL LACTATE 5 MG/ML VIAL IM ONE (20:45)
[2017-10-05 21:03] VITALS: BP 124/94
== END 2017-10-05 21:39 | disposition home or self-care (01) ==
LOC: EMS 19:41
DX: S70.01XA Contusion of right hip, initial encounter (principal); F20.9 Schizophrenia, unspecified; T42.6X5A Adverse effect of other antiepileptic and sedative-hypnotic drugs, initial encounter; J45.909 Unspecified asthma, uncomplicated; F31.9 Bipolar disorder, unspecified; J44.9 Chronic obstructive pulmonary disease, unspecified; K21.9 Gastro-esophageal reflux disease without esophagitis; E03.9 Hypothyroidism, unspecified; F17.210 Nicotine dependence, cigarettes, uncomplicated; Z88.2 Allergy status to sulfonamides; Z88.6 Allergy status to analgesic agent; Z88.5 Allergy status to narcotic agent; Z91.013 Allergy to seafood; W19.XXXA Unspecified fall, initial encounter; Y92.89 Other specified places as the place of occurrence of the external cause; Y93.89 Activity, other specified; Y99.8 Other external cause status
CPT/HCPCS: 36415; 73502; 80053; 80164; 85025; 96372; 99285; G0480; J1200; J1630

== ENCOUNTER 2017-10-08 17:35 | Emergency (ER) | payer OTHER ==
[~2017-10-08] VITALS: Ht 167.6 cm; Wt 70.4 kg
[~2017-10-08 17:35] MED LIST changes: +ALBU8HFA PO; -DIPH25 IM; -NICO-703 TD
[2017-10-08 18:54] LABS: BASOPHILS % (AUTO) 0.5 % (0.0-2.0); EOSINOPHILS % (AUTO) 0.2 % (1.0-6.0); HEMATOCRIT 41.5 % (36-46); HEMOGLOBIN 14.3 g/dL (12.0-16.0); LYMPHOCYTES # (AUTO) 1.9 K/uL (1.0-4.8); LYMPHOCYTES % (AUTO) 34.9 % (22.0-44.0); MEAN CORPUSCULAR HEMOGLOBIN 32.7 pg (26.0-34.0); MEAN CORPUSCULAR HGB CONC 34.6 G/dL (31.0-37.0); MEAN CORPUSCULAR VOLUME 95 fL (80-100); MONOCYTES # (AUTO) 0.7 K/uL (0.1-1.0); NEUTROPHILS # (AUTO) 2.7 K/uL (1.8-7.7); NEUTROPHILS % (AUTO) 51.4 % (40.0-70.0); PLATELET COUNT (AUTO) 140 K/uL (150-450); RED BLOOD CELL COUNT(AUTO) 4.38 MIL/uL (4.00-5.20); RED CELL DISTRIBUTION WIDTH 13.3 % (11.5-14.5)
[2017-10-08 19:21] LABS: ANION GAP 5 mmol/L (8-16); CARBON DIOXIDE 28 mmol/L (22-29); CHLORIDE 104 mmol/L (98-107); CREATININE 0.83 mg/dL (0.60-1.30); GLOMERULAR FILTR. RATE CALC > 60 mL/min (>60); GLUCOSE,RANDOM 99 mg/dL (70-110); POTASSIUM 3.8 mmol/L (3.5-5.1); SODIUM SERUM 137 mmol/L (136-145); UREA NITROGEN, BLOOD 6 mg/dL (7-18)
[2017-10-08 19:25] LABS: ALANINE AMINOTRANSFERASE 18 U/L (12-78); ALBUMIN 2.9 g/dL (3.4-5.0); ALKALINE PHOSPHATASE 61 U/L (46-116); ASPARTATE AMINOTRANSFERASE 12 U/L (15-37); BILIRUBIN,TOTAL 0.4 mg/dL (0.1-1.0); TOTAL PROTEIN, SERUM 5.5 g/dL (6.4-8.2); VALPROIC ACID 90 mcg/mL (50-100)
[2017-10-08] MEDS: LORazepam 2 MG TABLET PO ONE (19:30)
[2017-10-08] MEDS: HALOPERIDOL 5 MG TABLET PO ONE (19:30)
[2017-10-08 19:44] LABS: AMPHET/METH SCREEN,URINE NEGATIVE (NEGATIVE); BARBITURATE SCREEN, URINE NEGATIVE (NEGATIVE); BENZODIAZEPINES SCREEN,URINE NEGATIVE (NEGATIVE); CANNABINOID SCREEN,URINE NEGATIVE (NEGATIVE); COCAINE SCREEN,URINE NEGATIVE (NEGATIVE); METHADONE SCREEN, URINE NEGATIVE (NEGATIVE); OPIATE SCREEN,URINE NEGATIVE (NEGATIVE); PHENCYCLIDINE SCREEN,URINE NEGATIVE (NEGATIVE)
[2017-10-09] MEDS: HALOPERIDOL LACTATE 5 MG/ML VIAL IM ONE (08:53)
[2017-10-09] MEDS: LORazepam 2 MG/ML VIAL IM ONE (08:53)
[2017-10-09 14:29] VITALS: BP 118/61
[2017-10-10] MEDS ORDERED: DIVA-76 PO (17:11)
== END 2017-10-09 15:18 | disposition home or self-care (01) ==
LOC: EMS 17:37
DX: F41.9 Anxiety disorder, unspecified (principal); R45.1 Restlessness and agitation; F31.9 Bipolar disorder, unspecified; F20.9 Schizophrenia, unspecified; E03.9 Hypothyroidism, unspecified; K21.9 Gastro-esophageal reflux disease without esophagitis; J44.9 Chronic obstructive pulmonary disease, unspecified; F17.210 Nicotine dependence, cigarettes, uncomplicated; Z88.2 Allergy status to sulfonamides; Z88.5 Allergy status to narcotic agent; Z88.6 Allergy status to analgesic agent; Z91.013 Allergy to seafood
CPT/HCPCS: 36415; 80053; 80164; 80307; 85025; 96372; 99284; G0480; J1630; J2060

== ENCOUNTER 2017-10-09 16:16 | Inpatient (IN) | payer MEDICAID, OTHER ==
[~2017-10-09] VITALS: Ht 167.6 cm; Wt 78.0 kg
[2017-10-09] MEDS ORDERED: DIVALPROEX SODIUM 250 MG DR TABLET PO ONE (16:30)
[2017-10-09] MEDS ORDERED: RisperiDONE 1 MG TABLET PO ONE (16:30)
[2017-10-09] MEDS ORDERED: BENZTROPINE MESYLATE 2 MG TABLET PO ONE (16:30)
[2017-10-09] MEDS ORDERED: LORazepam 2 MG TABLET PO ONE (18:15)
[2017-10-09] MEDS ORDERED: HALOPERIDOL 5 MG TABLET PO ONE (18:15)
[2017-10-09] MEDS ORDERED: TraZODone HCL 50 MG TABLET PO ONE (20:45)
[2017-10-10] MEDS ORDERED: HALOPERIDOL 5 MG TABLET PO ONE (11:00)
[2017-10-10] MEDS ORDERED: LORazepam 2 MG TABLET PO ONE (11:00)
[2017-10-10] MEDS ORDERED: DIVA-76 PO (17:11)
[2017-10-10 19:00] VITALS: BP 101/79
[2017-10-10] MEDS ORDERED: -PHARMACY VACCINE NOTE- MISC ONE (19:30)
[2017-10-10] MEDS: DIVALPROEX SODIUM 250 MG DR TABLET PO SCH (20:11)
[2017-10-10] MEDS: RisperiDONE 3 MG TABLET PO SCH (20:11)
[2017-10-10] MEDS: BENZTROPINE MESYLATE 2 MG TABLET PO SCH (20:11)
[2017-10-10] MEDS: TraZODone HCL 100 MG TABLET PO SCH (20:12)
[2017-10-10] MEDS ORDERED: PETROLATUM,WHITE 28 GM JELLY TP PRN (20:15)
[2017-10-10] MEDS ORDERED: DOCUSATE SODIUM 100 MG CAPSULE PO PRN (20:15)
[2017-10-10] MEDS ORDERED: ALBUTEROL SULFATE HFA 90 MCG/PUFF 8 GM INHALER IH PRN (20:15)
[2017-10-10] MEDS ORDERED: CloNIDine HCL 0.1 MG TABLET PO PRN (20:15)
[2017-10-11] VITALS (7 sets, daily range): BP systolic 97–116; BP diastolic 53–70
[2017-10-11] MEDS: LEVOTHYROXINE SODIUM 75 MCG TABLET PO SCH (06:32)
[2017-10-11] MEDS: PANTOPRAZOLE SODIUM 40 MG DR TABLET PO SCH (06:32)
[2017-10-11 08:19] LABS: BASOPHILS % (AUTO) 0.5 % (0.0-2.0); EOSINOPHILS % (AUTO) 0.4 % (1.0-6.0); HEMOGLOBIN 15.2 g/dL (12.0-16.0); LYMPHOCYTES # (AUTO) 2.6 K/uL (1.0-4.8); LYMPHOCYTES % (AUTO) 50.5 % (22.0-44.0); MEAN CORPUSCULAR HEMOGLOBIN 32.6 pg (26.0-34.0); MEAN CORPUSCULAR HGB CONC 34.6 G/dL (31.0-37.0); MEAN CORPUSCULAR VOLUME 94 fL (80-100); MONOCYTES # (AUTO) 0.4 K/uL (0.1-1.0); MONOCYTES % (AUTO) 8.4 % (2.0-9.0); NEUTROPHILS # (AUTO) 2.1 K/uL (1.8-7.7); NEUTROPHILS % (AUTO) 40.2 % (40.0-70.0); PLATELET COUNT (AUTO) 164 K/uL (150-450); RED BLOOD CELL COUNT(AUTO) 4.66 MIL/uL (4.00-5.20); RED CELL DISTRIBUTION WIDTH 13.3 % (11.5-14.5)
[2017-10-11 08:41] LABS: ALANINE AMINOTRANSFERASE 17 U/L (12-78); ALBUMIN 2.7 g/dL (3.4-5.0); ALKALINE PHOSPHATASE 59 U/L (46-116); ANION GAP 6 mmol/L (8-16); ASPARTATE AMINOTRANSFERASE 12 U/L (15-37); BILIRUBIN,TOTAL 0.3 mg/dL (0.1-1.0); CALCIUM, TOTAL 8.8 mg/dL (8.8-10.5); CARBON DIOXIDE 28 mmol/L (22-29); CHLORIDE 106 mmol/L (98-107); CHOL/HDL RATIO 2.7 (3.9-5.7); CHOLESTEROL 139 mg/dL (131-200); CREATININE 0.77 mg/dL (0.60-1.30); GLOMERULAR FILTR. RATE CALC > 60 mL/min (>60); GLUCOSE,RANDOM 71 mg/dL (70-110); HDL CHOLESTEROL 52 mg/dL (40-60); LDL CHOL (CALC.) 59 mg/dL (0-130); SODIUM SERUM 140 mmol/L (136-145); TOTAL PROTEIN, SERUM 5.5 g/dL (6.4-8.2); TRIGLYCERIDES 142 mg/dL (15-150); UREA NITROGEN, BLOOD 11 mg/dL (7-18)
[2017-10-11 08:42] LABS: HEMOGLOBIN A1C 4.9 % (4.5-6.2)
[2017-10-11] MEDS: BENZTROPINE MESYLATE 2 MG TABLET PO SCH ×2 (08:50→16:46)
[2017-10-11] MEDS: DOCUSATE SODIUM 100 MG CAPSULE PO SCH ×2 (08:50→16:47)
[2017-10-11] MEDS: DIVALPROEX SODIUM 250 MG DR TABLET PO SCH ×2 (08:51→16:46)
[2017-10-11] MEDS: NYSTATIN 15 GM POWDER BOTTLE TP SCH ×2 (08:51→17:46)
[2017-10-11] MEDS: NICOTINE 14 MG/24 HOUR PATCH TD SCH (08:51)
[2017-10-11] MEDS: RisperiDONE 3 MG TABLET PO SCH ×2 (08:51→16:46)
[2017-10-11] MEDS: LORazepam 2 MG TABLET PO PRN (09:05)
[2017-10-11] MEDS: TraZODone HCL 100 MG TABLET PO SCH (20:18)
[2017-10-11] MEDS: HALOPERIDOL 5 MG TABLET PO PRN (20:18)
[2017-10-12 01:29] VITALS: BP 100/70
[2017-10-12 01:35] VITALS: BP 100/70
[2017-10-12] MEDS: PANTOPRAZOLE SODIUM 40 MG DR TABLET PO SCH (06:30)
[2017-10-12] MEDS: LEVOTHYROXINE SODIUM 75 MCG TABLET PO SCH (06:30)
[2017-10-12] MEDS: NICOTINE 14 MG/24 HOUR PATCH TD SCH (09:00)
[2017-10-12] MEDS: RisperiDONE CONC 3 MG/3 ML SOLUTION ORAL.SYG PO SCH ×2 (10:34→16:49)
[2017-10-12] MEDS: NYSTATIN 15 GM POWDER BOTTLE TP SCH ×2 (10:34→17:14)
[2017-10-12] MEDS: VALPROIC ACID 250 MG/5 ML SYRUP UDCUP PO SCH ×2 (10:35→16:47)
[2017-10-12] MEDS: DOCUSATE SODIUM 100 MG CAPSULE PO SCH ×2 (10:35→16:47)
[2017-10-12] MEDS: BENZTROPINE MESYLATE 2 MG TABLET PO SCH ×2 (10:35→16:47)
[2017-10-12 11:06] VITALS: BP 129/77
[2017-10-12 16:09] VITALS: BP 109/65
[2017-10-12 16:12] VITALS: BP 129/77
[2017-10-12] MEDS: HALOPERIDOL 5 MG TABLET PO PRN (21:02)
[2017-10-12] MEDS: TraZODone HCL 100 MG TABLET PO SCH (21:02)
[2017-10-13] MEDS: LEVOTHYROXINE SODIUM 75 MCG TABLET PO SCH (06:29)
[2017-10-13] MEDS: PANTOPRAZOLE SODIUM 40 MG DR TABLET PO SCH (06:30)
[2017-10-13 08:16] VITALS: BP 100/67
[2017-10-13] MEDS: NICOTINE 14 MG/24 HOUR PATCH TD SCH (09:00)
[2017-10-13] MEDS: VALPROIC ACID 250 MG/5 ML SYRUP UDCUP PO SCH ×2 (09:52→16:27)
[2017-10-13] MEDS: NYSTATIN 15 GM POWDER BOTTLE TP SCH ×2 (09:52→16:28)
[2017-10-13] MEDS: RisperiDONE CONC 3 MG/3 ML SOLUTION ORAL.SYG PO SCH ×2 (09:52→16:27)
[2017-10-13] MEDS: BENZTROPINE MESYLATE 2 MG TABLET PO SCH ×2 (09:55→16:27)
[2017-10-13] MEDS: DOCUSATE SODIUM 100 MG CAPSULE PO SCH ×2 (09:55→16:28)
[2017-10-13] MEDS: HALOPERIDOL 5 MG TABLET PO PRN (20:45)
[2017-10-13] MEDS: TraZODone HCL 100 MG TABLET PO SCH (20:45)
[2017-10-14] MEDS: PANTOPRAZOLE SODIUM 40 MG DR TABLET PO SCH (06:30)
[2017-10-14] MEDS: LEVOTHYROXINE SODIUM 75 MCG TABLET PO SCH (06:30)
[2017-10-14 08:36] VITALS: BP 117/46
[2017-10-14] MEDS: NICOTINE 14 MG/24 HOUR PATCH TD SCH (09:00)
[2017-10-14] MEDS: VALPROIC ACID 250 MG/5 ML SYRUP UDCUP PO SCH ×2 (09:16→16:16)
[2017-10-14] MEDS: BENZTROPINE MESYLATE 2 MG TABLET PO SCH ×2 (09:16→16:16)
[2017-10-14] MEDS: NYSTATIN 15 GM POWDER BOTTLE TP SCH ×2 (09:17→16:15)
[2017-10-14] MEDS: RisperiDONE CONC 3 MG/3 ML SOLUTION ORAL.SYG PO SCH ×2 (09:17→16:30)
[2017-10-14] MEDS: DOCUSATE SODIUM 100 MG CAPSULE PO SCH ×2 (09:29→16:16)
[2017-10-14] MEDS: LORazepam 2 MG TABLET PO PRN (11:14)
[2017-10-14 16:42] VITALS: BP 112/60
[2017-10-14] MEDS: TraZODone HCL 100 MG TABLET PO SCH (20:20)
[2017-10-14] MEDS: HALOPERIDOL 5 MG TABLET PO PRN (20:20)
[2017-10-15 05:22] VITALS: BP 114/65
[2017-10-15] MEDS: LORazepam 2 MG TABLET PO PRN (05:28)
[2017-10-15] MEDS: HALOPERIDOL 5 MG TABLET PO PRN ×2 (05:28→20:08)
[2017-10-15] MEDS: PANTOPRAZOLE SODIUM 40 MG DR TABLET PO SCH (06:31)
[2017-10-15] MEDS: LEVOTHYROXINE SODIUM 75 MCG TABLET PO SCH (06:31)
[2017-10-15] MEDS: NICOTINE 14 MG/24 HOUR PATCH TD SCH (09:00)
[2017-10-15] MEDS: VALPROIC ACID 250 MG/5 ML SYRUP UDCUP PO SCH ×2 (09:21→16:24)
[2017-10-15] MEDS: RisperiDONE CONC 3 MG/3 ML SOLUTION ORAL.SYG PO SCH ×2 (09:22→16:23)
[2017-10-15] MEDS: NYSTATIN 15 GM POWDER BOTTLE TP SCH ×2 (09:22→16:24)
[2017-10-15] MEDS: DOCUSATE SODIUM 100 MG CAPSULE PO SCH ×2 (09:22→16:23)
[2017-10-15] MEDS: BENZTROPINE MESYLATE 2 MG TABLET PO SCH ×2 (09:22→16:23)
[2017-10-15 16:23] VITALS: BP 109/62
[2017-10-15] MEDS: TraZODone HCL 100 MG TABLET PO SCH (20:09)
[2017-10-16 05:04] VITALS: BP 106/65
[2017-10-16] MEDS: PANTOPRAZOLE SODIUM 40 MG DR TABLET PO SCH (06:36)
[2017-10-16] MEDS: LEVOTHYROXINE SODIUM 75 MCG TABLET PO SCH (06:37)
[2017-10-16] MEDS: VALPROIC ACID 250 MG/5 ML SYRUP UDCUP PO SCH ×2 (08:33→16:19)
[2017-10-16] MEDS: RisperiDONE CONC 3 MG/3 ML SOLUTION ORAL.SYG PO SCH ×2 (08:34→16:19)
[2017-10-16] MEDS: BENZTROPINE MESYLATE 2 MG TABLET PO SCH ×2 (08:34→16:19)
[2017-10-16] MEDS: DOCUSATE SODIUM 100 MG CAPSULE PO SCH ×2 (08:34→16:19)
[2017-10-16] MEDS: NICOTINE 14 MG/24 HOUR PATCH TD SCH (08:36)
[2017-10-16] MEDS: NYSTATIN 15 GM POWDER BOTTLE TP SCH ×2 (08:36→16:20)
[2017-10-16] MEDS: HALOPERIDOL 5 MG TABLET PO PRN ×2 (09:14→20:06)
[2017-10-16 16:00] VITALS: BP 110/67
[2017-10-16] MEDS: TraZODone HCL 100 MG TABLET PO SCH (20:06)
[2017-10-17] MEDS: ZOLPIDEM TARTRATE 10 MG TABLET PO PRN (00:03)
[2017-10-17 00:27] VITALS: BP 119/69
[2017-10-17] MEDS: LEVOTHYROXINE SODIUM 75 MCG TABLET PO SCH (06:13)
[2017-10-17] MEDS: PANTOPRAZOLE SODIUM 40 MG DR TABLET PO SCH (06:13)
[2017-10-17] MEDS: BENZTROPINE MESYLATE 2 MG TABLET PO SCH ×2 (08:52→16:27)
[2017-10-17] MEDS: DOCUSATE SODIUM 100 MG CAPSULE PO SCH ×2 (08:52→16:06)
[2017-10-17] MEDS: RisperiDONE CONC 3 MG/3 ML SOLUTION ORAL.SYG PO SCH ×2 (08:52→16:27)
[2017-10-17] MEDS: NICOTINE 14 MG/24 HOUR PATCH TD SCH (08:52)
[2017-10-17] MEDS: VALPROIC ACID 250 MG/5 ML SYRUP UDCUP PO SCH ×2 (08:52→16:14)
[2017-10-17] MEDS: NYSTATIN 15 GM POWDER BOTTLE TP SCH ×2 (08:53→16:14)
[2017-10-17 09:58] VITALS: BP 110/68
[2017-10-17] MEDS: HALOPERIDOL 5 MG TABLET PO PRN ×2 (10:44→20:52)
[2017-10-17 16:04] VITALS: BP 110/65
[2017-10-17] MEDS: TraZODone HCL 100 MG TABLET PO SCH (20:51)
[2017-10-18] MEDS: PANTOPRAZOLE SODIUM 40 MG DR TABLET PO SCH (06:45)
[2017-10-18] MEDS: LEVOTHYROXINE SODIUM 75 MCG TABLET PO SCH (06:45)
[2017-10-18] MEDS: BENZTROPINE MESYLATE 2 MG TABLET PO SCH ×2 (08:51→16:16)
[2017-10-18] MEDS: VALPROIC ACID 250 MG/5 ML SYRUP UDCUP PO SCH ×2 (08:51→16:17)
[2017-10-18] MEDS: DOCUSATE SODIUM 100 MG CAPSULE PO SCH ×2 (08:51→16:17)
[2017-10-18] MEDS: NYSTATIN 15 GM POWDER BOTTLE TP SCH ×2 (08:52→16:16)
[2017-10-18] MEDS: RisperiDONE CONC 3 MG/3 ML SOLUTION ORAL.SYG PO SCH ×2 (08:57→16:16)
[2017-10-18] MEDS: HALOPERIDOL 5 MG TABLET PO PRN (09:17)
[2017-10-18 16:04] VITALS: BP 112/75
[2017-10-18] MEDS: LORazepam 2 MG TABLET PO PRN (16:23)
[2017-10-18] MEDS: TraZODone HCL 100 MG TABLET PO SCH ×2 (20:43→20:53)
[2017-10-19 00:22] VITALS: BP 119/74
[2017-10-19] MEDS: PANTOPRAZOLE SODIUM 40 MG DR TABLET PO SCH (06:59)
[2017-10-19] MEDS: LEVOTHYROXINE SODIUM 75 MCG TABLET PO SCH (07:00)
[2017-10-19] MEDS: LORazepam 2 MG TABLET PO PRN ×2 (07:26→20:41)
[2017-10-19 08:20] VITALS: BP 138/70
[2017-10-19] MEDS: VALPROIC ACID 250 MG/5 ML SYRUP UDCUP PO SCH ×2 (08:50→16:17)
[2017-10-19] MEDS: RisperiDONE CONC 3 MG/3 ML SOLUTION ORAL.SYG PO SCH ×2 (08:50→16:17)
[2017-10-19] MEDS: DOCUSATE SODIUM 100 MG CAPSULE PO SCH ×2 (08:50→16:17)
[2017-10-19] MEDS: BENZTROPINE MESYLATE 2 MG TABLET PO SCH ×2 (08:50→16:17)
[2017-10-19] MEDS: NYSTATIN 15 GM POWDER BOTTLE TP SCH ×2 (09:02→16:17)
[2017-10-19] MEDS: HALOPERIDOL 5 MG TABLET PO PRN (14:38)
[2017-10-19 16:00] VITALS: BP 125/78
[2017-10-19] MEDS: TraZODone HCL 100 MG TABLET PO SCH (20:39)
[2017-10-20 01:00] VITALS: BP 108/65
[2017-10-20] MEDS: PANTOPRAZOLE SODIUM 40 MG DR TABLET PO SCH (06:21)
[2017-10-20] MEDS: LEVOTHYROXINE SODIUM 75 MCG TABLET PO SCH (06:22)
[2017-10-20 08:07] VITALS: BP 100/57
[2017-10-20] MEDS: VALPROIC ACID 250 MG/5 ML SYRUP UDCUP PO SCH ×2 (09:07→16:40)
[2017-10-20] MEDS: BENZTROPINE MESYLATE 2 MG TABLET PO SCH ×2 (09:07→16:39)
[2017-10-20] MEDS: DOCUSATE SODIUM 100 MG CAPSULE PO SCH ×2 (09:07→16:39)
[2017-10-20] MEDS: NYSTATIN 15 GM POWDER BOTTLE TP SCH ×2 (09:08→17:03)
[2017-10-20] MEDS: RisperiDONE CONC 3 MG/3 ML SOLUTION ORAL.SYG PO SCH ×2 (09:08→16:40)
[2017-10-20] MEDS: LORazepam 2 MG TABLET PO PRN ×2 (09:22→14:27)
[2017-10-20] MEDS: HALOPERIDOL 5 MG TABLET PO PRN ×2 (09:22→14:27)
[2017-10-20 16:00] VITALS: BP 131/65
[2017-10-20] MEDS: TraZODone HCL 100 MG TABLET PO SCH (20:37)
[2017-10-21 00:47] VITALS: BP 127/71
[2017-10-21] MEDS: PANTOPRAZOLE SODIUM 40 MG DR TABLET PO SCH (06:48)
[2017-10-21] MEDS: LEVOTHYROXINE SODIUM 75 MCG TABLET PO SCH (06:48)
[2017-10-21] MEDS: BENZTROPINE MESYLATE 2 MG TABLET PO SCH ×2 (08:09→16:55)
[2017-10-21] MEDS: RisperiDONE CONC 3 MG/3 ML SOLUTION ORAL.SYG PO SCH ×2 (08:10→16:55)
[2017-10-21] MEDS: VALPROIC ACID 250 MG/5 ML SYRUP UDCUP PO SCH ×2 (08:10→16:55)
[2017-10-21] MEDS: NYSTATIN 15 GM POWDER BOTTLE TP SCH ×2 (08:10→16:56)
[2017-10-21] MEDS: DOCUSATE SODIUM 100 MG CAPSULE PO SCH ×2 (08:10→16:55)
[2017-10-21 16:06] VITALS: BP 106/66
[2017-10-21] MEDS: TraZODone HCL 100 MG TABLET PO SCH (21:25)
[2017-10-22 04:07] VITALS: BP 110/66
[2017-10-22] MEDS: LEVOTHYROXINE SODIUM 75 MCG TABLET PO SCH (06:42)
[2017-10-22] MEDS: PANTOPRAZOLE SODIUM 40 MG DR TABLET PO SCH (06:42)
[2017-10-22] MEDS: VALPROIC ACID 250 MG/5 ML SYRUP UDCUP PO SCH ×2 (08:11→16:32)
[2017-10-22] MEDS: DOCUSATE SODIUM 100 MG CAPSULE PO SCH ×2 (08:11→16:32)
[2017-10-22] MEDS: BENZTROPINE MESYLATE 2 MG TABLET PO SCH ×2 (08:11→16:31)
[2017-10-22] MEDS: RisperiDONE CONC 3 MG/3 ML SOLUTION ORAL.SYG PO SCH ×2 (08:12→16:32)
[2017-10-22] MEDS: NYSTATIN 15 GM POWDER BOTTLE TP SCH ×2 (08:12→18:39)
[2017-10-22 08:17] VITALS: BP 108/64
[2017-10-22 08:19] VITALS: BP 108/64
[2017-10-22 16:00] VITALS: BP 115/73
[2017-10-22] MEDS: TraZODone HCL 100 MG TABLET PO SCH (20:40)
[2017-10-23] MEDS: LEVOTHYROXINE SODIUM 75 MCG TABLET PO SCH (06:58)
[2017-10-23] MEDS: PANTOPRAZOLE SODIUM 40 MG DR TABLET PO SCH (06:58)
[2017-10-23 07:09] VITALS: BP 112/68
[2017-10-23] MEDS: DOCUSATE SODIUM 100 MG CAPSULE PO SCH ×2 (08:31→16:49)
[2017-10-23] MEDS: BENZTROPINE MESYLATE 2 MG TABLET PO SCH ×2 (08:31→16:49)
[2017-10-23] MEDS: VALPROIC ACID 250 MG/5 ML SYRUP UDCUP PO SCH ×2 (08:33→16:50)
[2017-10-23] MEDS: RisperiDONE CONC 3 MG/3 ML SOLUTION ORAL.SYG PO SCH ×2 (08:35→16:49)
[2017-10-23] MEDS: NYSTATIN 15 GM POWDER BOTTLE TP SCH ×2 (08:35→16:49)
[2017-10-23] MEDS: LORazepam 2 MG TABLET PO PRN (09:17)
[2017-10-23 16:10] VITALS: BP 105/65
[2017-10-23] MEDS: TraZODone HCL 100 MG TABLET PO SCH (21:00)
[2017-10-24 06:22] VITALS: BP 116/69
[2017-10-24] MEDS: PANTOPRAZOLE SODIUM 40 MG DR TABLET PO SCH (07:02)
[2017-10-24] MEDS: LEVOTHYROXINE SODIUM 75 MCG TABLET PO SCH (07:02)
[2017-10-24] MEDS: LORazepam 2 MG TABLET PO PRN (07:23)
[2017-10-24] MEDS: RisperiDONE CONC 3 MG/3 ML SOLUTION ORAL.SYG PO SCH ×2 (08:32→16:00)
[2017-10-24] MEDS: VALPROIC ACID 250 MG/5 ML SYRUP UDCUP PO SCH ×2 (08:32→16:01)
[2017-10-24] MEDS: NYSTATIN 15 GM POWDER BOTTLE TP SCH ×2 (08:32→16:24)
[2017-10-24] MEDS: BENZTROPINE MESYLATE 2 MG TABLET PO SCH ×2 (08:32→16:00)
[2017-10-24] MEDS: DOCUSATE SODIUM 100 MG CAPSULE PO SCH ×2 (08:32→16:00)
[2017-10-24 08:34] VITALS: BP 127/73
[2017-10-24 16:16] VITALS: BP 126/82
[2017-10-24] MEDS: TraZODone HCL 100 MG TABLET PO SCH (20:46)
[2017-10-25] MEDS: PANTOPRAZOLE SODIUM 40 MG DR TABLET PO SCH (06:28)
[2017-10-25] MEDS: LEVOTHYROXINE SODIUM 75 MCG TABLET PO SCH (06:28)
[2017-10-25 08:00] VITALS: BP 110/67
[2017-10-25] MEDS: BENZTROPINE MESYLATE 2 MG TABLET PO SCH ×2 (08:37→16:30)
[2017-10-25] MEDS: DOCUSATE SODIUM 100 MG CAPSULE PO SCH ×2 (08:37→16:31)
[2017-10-25] MEDS: VALPROIC ACID 250 MG/5 ML SYRUP UDCUP PO SCH ×2 (08:37→16:31)
[2017-10-25] MEDS: RisperiDONE CONC 3 MG/3 ML SOLUTION ORAL.SYG PO SCH ×2 (08:38→16:31)
[2017-10-25] MEDS: NYSTATIN 15 GM POWDER BOTTLE TP SCH ×2 (08:38→16:35)
[2017-10-25] MEDS: TraZODone HCL 100 MG TABLET PO SCH ×2 (21:00→21:46)
[2017-10-26] MEDS: PANTOPRAZOLE SODIUM 40 MG DR TABLET PO SCH (06:03)
[2017-10-26] MEDS: LEVOTHYROXINE SODIUM 75 MCG TABLET PO SCH (06:03)
[2017-10-26 06:15] VITALS: BP 118/81
[2017-10-26] MEDS: HALOPERIDOL 5 MG TABLET PO PRN (06:19)
[2017-10-26 08:04] VITALS: BP 97/69
[2017-10-26] MEDS: VALPROIC ACID 250 MG/5 ML SYRUP UDCUP PO SCH ×2 (08:48→16:09)
[2017-10-26] MEDS: NYSTATIN 15 GM POWDER BOTTLE TP SCH ×2 (08:48→16:12)
[2017-10-26] MEDS: RisperiDONE CONC 3 MG/3 ML SOLUTION ORAL.SYG PO SCH ×2 (08:48→16:10)
[2017-10-26] MEDS: DOCUSATE SODIUM 100 MG CAPSULE PO SCH ×2 (08:48→16:09)
[2017-10-26] MEDS: BENZTROPINE MESYLATE 2 MG TABLET PO SCH ×2 (08:48→16:09)
[2017-10-26 17:05] VITALS: BP 109/82
[2017-10-26] MEDS: TraZODone HCL 100 MG TABLET PO SCH (20:10)
[2017-10-27 05:25] VITALS: BP 118/79
[2017-10-27] MEDS: PANTOPRAZOLE SODIUM 40 MG DR TABLET PO SCH (06:35)
[2017-10-27] MEDS: LEVOTHYROXINE SODIUM 75 MCG TABLET PO SCH (06:35)
[2017-10-27 08:09] VITALS: BP 120/52
[2017-10-27] MEDS: NYSTATIN 15 GM POWDER BOTTLE TP SCH ×2 (09:25→17:10)
[2017-10-27] MEDS: RisperiDONE CONC 3 MG/3 ML SOLUTION ORAL.SYG PO SCH ×2 (09:25→17:10)
[2017-10-27] MEDS: VALPROIC ACID 250 MG/5 ML SYRUP UDCUP PO SCH ×2 (09:25→17:10)
[2017-10-27] MEDS: DOCUSATE SODIUM 100 MG CAPSULE PO SCH ×2 (09:25→17:10)
[2017-10-27] MEDS: BENZTROPINE MESYLATE 2 MG TABLET PO SCH ×2 (09:25→17:10)
[2017-10-27 16:22] VITALS: BP 138/67
[2017-10-27] MEDS: HALOPERIDOL 5 MG TABLET PO PRN (20:39)
[2017-10-27] MEDS: TraZODone HCL 100 MG TABLET PO SCH (20:39)
[2017-10-28 06:40] VITALS: BP 135/86
[2017-10-28] MEDS: PANTOPRAZOLE SODIUM 40 MG DR TABLET PO SCH (06:43)
[2017-10-28] MEDS: LEVOTHYROXINE SODIUM 75 MCG TABLET PO SCH (06:43)
[2017-10-28 08:03] VITALS: BP 110/61
[2017-10-28] MEDS: VALPROIC ACID 250 MG/5 ML SYRUP UDCUP PO SCH ×2 (08:27→16:19)
[2017-10-28] MEDS: NYSTATIN 15 GM POWDER BOTTLE TP SCH ×2 (08:27→16:19)
[2017-10-28] MEDS: DOCUSATE SODIUM 100 MG CAPSULE PO SCH ×2 (08:27→16:19)
[2017-10-28] MEDS: RisperiDONE CONC 3 MG/3 ML SOLUTION ORAL.SYG PO SCH ×2 (08:27→16:18)
[2017-10-28] MEDS: BENZTROPINE MESYLATE 2 MG TABLET PO SCH ×2 (09:03→16:19)
[2017-10-28] MEDS: HALOPERIDOL 5 MG TABLET PO PRN (13:25)
[2017-10-28 16:42] VITALS: BP 112/60
[2017-10-28] MEDS: TraZODone HCL 100 MG TABLET PO SCH (21:20)
[2017-10-29] MEDS: LEVOTHYROXINE SODIUM 75 MCG TABLET PO SCH (06:30)
[2017-10-29] MEDS: PANTOPRAZOLE SODIUM 40 MG DR TABLET PO SCH (06:30)
[2017-10-29 08:15] VITALS: BP 114/73
[2017-10-29] MEDS: VALPROIC ACID 250 MG/5 ML SYRUP UDCUP PO SCH ×2 (09:07→17:13)
[2017-10-29] MEDS: BENZTROPINE MESYLATE 2 MG TABLET PO SCH ×2 (09:07→17:13)
[2017-10-29] MEDS: NYSTATIN 15 GM POWDER BOTTLE TP SCH ×2 (09:07→17:14)
[2017-10-29] MEDS: DOCUSATE SODIUM 100 MG CAPSULE PO SCH ×2 (09:07→17:13)
[2017-10-29] MEDS: RisperiDONE CONC 3 MG/3 ML SOLUTION ORAL.SYG PO SCH ×2 (09:07→17:13)
[2017-10-29] MEDS: HALOPERIDOL 5 MG TABLET PO PRN (12:34)
[2017-10-29 17:14] VITALS: BP 112/67
[2017-10-29] MEDS: TraZODone HCL 100 MG TABLET PO SCH (20:22)
[2017-10-30] MEDS: LEVOTHYROXINE SODIUM 75 MCG TABLET PO SCH (07:09)
[2017-10-30] MEDS: PANTOPRAZOLE SODIUM 40 MG DR TABLET PO SCH (07:09)
[2017-10-30 07:12] VITALS: BP 102/60
[2017-10-30 08:20] VITALS: BP 111/76
[2017-10-30] MEDS: NYSTATIN 15 GM POWDER BOTTLE TP SCH ×2 (09:41→16:47)
[2017-10-30] MEDS: DOCUSATE SODIUM 100 MG CAPSULE PO SCH ×2 (09:41→16:41)
[2017-10-30] MEDS: VALPROIC ACID 250 MG/5 ML SYRUP UDCUP PO SCH ×2 (09:41→16:41)
[2017-10-30] MEDS: RisperiDONE CONC 3 MG/3 ML SOLUTION ORAL.SYG PO SCH ×2 (09:41→16:42)
[2017-10-30] MEDS: BENZTROPINE MESYLATE 2 MG TABLET PO SCH ×2 (09:41→16:41)
[2017-10-30] MEDS: HALOPERIDOL 5 MG TABLET PO PRN ×2 (10:07→16:42)
[2017-10-30 16:15] VITALS: BP 101/60
[2017-10-30] MEDS: TraZODone HCL 100 MG TABLET PO SCH (20:26)
[2017-10-31] MEDS: PANTOPRAZOLE SODIUM 40 MG DR TABLET PO SCH (06:51)
[2017-10-31] MEDS: LEVOTHYROXINE SODIUM 75 MCG TABLET PO SCH (06:51)
[2017-10-31 07:03] VITALS: BP 102/66
[2017-10-31 08:10] VITALS: BP 96/60
[2017-10-31] MEDS: VALPROIC ACID 250 MG/5 ML SYRUP UDCUP PO SCH ×2 (09:01→16:01)
[2017-10-31] MEDS: NYSTATIN 15 GM POWDER BOTTLE TP SCH ×2 (09:01→16:02)
[2017-10-31] MEDS: BENZTROPINE MESYLATE 2 MG TABLET PO SCH ×2 (09:02→16:01)
[2017-10-31] MEDS: RisperiDONE CONC 3 MG/3 ML SOLUTION ORAL.SYG PO SCH ×2 (09:02→16:01)
[2017-10-31] MEDS: HALOPERIDOL 5 MG TABLET PO PRN ×2 (09:02→15:52)
[2017-10-31] MEDS: DOCUSATE SODIUM 100 MG CAPSULE PO SCH ×2 (09:02→16:02)
[2017-10-31 16:48] VITALS: BP 118/63
[2017-10-31] MEDS: TraZODone HCL 100 MG TABLET PO SCH (20:08)
[2017-11-01 05:46] VITALS: BP 112/68
[2017-11-01] MEDS: LEVOTHYROXINE SODIUM 75 MCG TABLET PO SCH (06:39)
[2017-11-01] MEDS: PANTOPRAZOLE SODIUM 40 MG DR TABLET PO SCH (06:39)
[2017-11-01 08:36] VITALS: BP 118/78
[2017-11-01] MEDS: VALPROIC ACID 250 MG/5 ML SYRUP UDCUP PO SCH ×2 (09:09→16:39)
[2017-11-01] MEDS: BENZTROPINE MESYLATE 2 MG TABLET PO SCH ×2 (09:09→16:39)
[2017-11-01] MEDS: RisperiDONE CONC 3 MG/3 ML SOLUTION ORAL.SYG PO SCH ×2 (09:09→16:39)
[2017-11-01] MEDS: NYSTATIN 15 GM POWDER BOTTLE TP SCH ×2 (09:09→16:39)
[2017-11-01] MEDS: DOCUSATE SODIUM 100 MG CAPSULE PO SCH ×2 (09:09→16:39)
[2017-11-01] MEDS: HALOPERIDOL 5 MG TABLET PO PRN ×2 (09:40→16:39)
[2017-11-01 16:04] VITALS: BP 111/66
[2017-11-01] MEDS: TraZODone HCL 100 MG TABLET PO SCH (20:44)
[2017-11-02] MEDS: HALOPERIDOL 5 MG TABLET PO PRN ×3 (01:59→16:47)
[2017-11-02 02:04] VITALS: BP 109/64
[2017-11-02] MEDS: LEVOTHYROXINE SODIUM 75 MCG TABLET PO SCH (06:34)
[2017-11-02] MEDS: PANTOPRAZOLE SODIUM 40 MG DR TABLET PO SCH (06:34)
[2017-11-02 08:00] VITALS: BP 110/72
[2017-11-02] MEDS: NYSTATIN 15 GM POWDER BOTTLE TP SCH ×2 (09:18→16:47)
[2017-11-02] MEDS: DOCUSATE SODIUM 100 MG CAPSULE PO SCH ×2 (09:18→16:47)
[2017-11-02] MEDS: RisperiDONE CONC 3 MG/3 ML SOLUTION ORAL.SYG PO SCH ×2 (09:18→16:47)
[2017-11-02] MEDS: BENZTROPINE MESYLATE 2 MG TABLET PO SCH ×2 (09:18→16:47)
[2017-11-02] MEDS: VALPROIC ACID 250 MG/5 ML SYRUP UDCUP PO SCH ×2 (09:18→16:47)
[2017-11-02 16:11] VITALS: BP 103/68
[2017-11-02] MEDS: HALOPERIDOL LACTATE 5 MG/ML VIAL IM PRN (16:54)
[2017-11-02] MEDS: TraZODone HCL 100 MG TABLET PO SCH (20:18)
[2017-11-03] MEDS: HALOPERIDOL 5 MG TABLET PO PRN ×2 (02:53→16:12)
[2017-11-03 03:14] VITALS: BP 114/67
[2017-11-03] MEDS: PANTOPRAZOLE SODIUM 40 MG DR TABLET PO SCH (06:31)
[2017-11-03] MEDS: LEVOTHYROXINE SODIUM 75 MCG TABLET PO SCH (06:31)
[2017-11-03 08:05] VITALS: BP 97/51
[2017-11-03] MEDS: RisperiDONE CONC 3 MG/3 ML SOLUTION ORAL.SYG PO SCH ×3 (08:17→17:00)
[2017-11-03] MEDS: LORazepam 2 MG TABLET PO PRN ×2 (08:17→16:09)
[2017-11-03] MEDS: NYSTATIN 15 GM POWDER BOTTLE TP SCH ×3 (08:17→17:00)
[2017-11-03] MEDS: DOCUSATE SODIUM 100 MG CAPSULE PO SCH ×3 (08:17→17:00)
[2017-11-03] MEDS: BENZTROPINE MESYLATE 2 MG TABLET PO SCH ×3 (08:18→17:00)
[2017-11-03] MEDS: VALPROIC ACID 250 MG/5 ML SYRUP UDCUP PO SCH ×3 (08:18→17:00)
[2017-11-03 16:35] VITALS: BP 112/69
[2017-11-03] MEDS: HALOPERIDOL LACTATE 5 MG/ML VIAL IM PRN (17:14)
[2017-11-03] MEDS: TraZODone HCL 100 MG TABLET PO SCH (20:28)
[2017-11-04 05:52] VITALS: BP 115/70
[2017-11-04] MEDS: LEVOTHYROXINE SODIUM 75 MCG TABLET PO SCH ×2 (06:30→06:38)
[2017-11-04] MEDS: PANTOPRAZOLE SODIUM 40 MG DR TABLET PO SCH ×2 (06:30→06:38)
[2017-11-04] MEDS: RisperiDONE CONC 3 MG/3 ML SOLUTION ORAL.SYG PO SCH ×2 (09:48→17:10)
[2017-11-04] MEDS: NYSTATIN 15 GM POWDER BOTTLE TP SCH ×2 (09:48→17:10)
[2017-11-04] MEDS: DOCUSATE SODIUM 100 MG CAPSULE PO SCH ×2 (09:49→17:10)
[2017-11-04] MEDS: VALPROIC ACID 250 MG/5 ML SYRUP UDCUP PO SCH ×2 (09:49→17:10)
[2017-11-04] MEDS: BENZTROPINE MESYLATE 2 MG TABLET PO SCH ×2 (09:49→17:10)
[2017-11-04] MEDS: HALOPERIDOL 5 MG TABLET PO PRN (10:34)
[2017-11-04 16:25] VITALS: BP 115/60
[2017-11-04] MEDS: TraZODone HCL 100 MG TABLET PO SCH (20:59)
[2017-11-05] MEDS: ZOLPIDEM TARTRATE 10 MG TABLET PO PRN (02:50)
[2017-11-05 02:56] VITALS: BP 104/60
[2017-11-05] MEDS: PANTOPRAZOLE SODIUM 40 MG DR TABLET PO SCH (06:39)
[2017-11-05] MEDS: LEVOTHYROXINE SODIUM 75 MCG TABLET PO SCH (06:39)
[2017-11-05 08:04] VITALS: BP 130/60
[2017-11-05] MEDS: VALPROIC ACID 250 MG/5 ML SYRUP UDCUP PO SCH ×2 (09:18→17:21)
[2017-11-05] MEDS: BENZTROPINE MESYLATE 2 MG TABLET PO SCH ×2 (09:18→17:24)
[2017-11-05] MEDS: DOCUSATE SODIUM 100 MG CAPSULE PO SCH ×2 (09:19→17:24)
[2017-11-05] MEDS: RisperiDONE CONC 3 MG/3 ML SOLUTION ORAL.SYG PO SCH ×2 (09:19→17:23)
[2017-11-05] MEDS: NYSTATIN 15 GM POWDER BOTTLE TP SCH ×2 (09:20→17:23)
[2017-11-05 16:00] VITALS: BP 105/60
[2017-11-05] MEDS: TraZODone HCL 100 MG TABLET PO SCH (20:13)
[2017-11-06 01:07] VITALS: BP 107/67
[2017-11-06] MEDS: HALOPERIDOL 5 MG TABLET PO PRN ×3 (01:17→18:30)
[2017-11-06] MEDS: LEVOTHYROXINE SODIUM 75 MCG TABLET PO SCH (06:33)
[2017-11-06] MEDS: PANTOPRAZOLE SODIUM 40 MG DR TABLET PO SCH (06:33)
[2017-11-06 08:07] VITALS: BP 110/73
[2017-11-06] MEDS: RisperiDONE CONC 3 MG/3 ML SOLUTION ORAL.SYG PO SCH ×2 (09:12→16:45)
[2017-11-06] MEDS: BENZTROPINE MESYLATE 2 MG TABLET PO SCH ×2 (09:13→16:44)
[2017-11-06] MEDS: DOCUSATE SODIUM 100 MG CAPSULE PO SCH ×2 (09:13→16:45)
[2017-11-06] MEDS: VALPROIC ACID 250 MG/5 ML SYRUP UDCUP PO SCH ×2 (09:13→16:44)
[2017-11-06] MEDS: NYSTATIN 15 GM POWDER BOTTLE TP SCH ×2 (09:14→16:45)
[2017-11-06 16:00] VITALS: BP 120/80
[2017-11-06] MEDS: TraZODone HCL 100 MG TABLET PO SCH (20:37)
[2017-11-07] MEDS: LEVOTHYROXINE SODIUM 75 MCG TABLET PO SCH (06:30)
[2017-11-07] MEDS: PANTOPRAZOLE SODIUM 40 MG DR TABLET PO SCH (06:30)
[2017-11-07 06:55] VITALS: BP 118/80
[2017-11-07 08:02] VITALS: BP 106/64
[2017-11-07] MEDS: DOCUSATE SODIUM 100 MG CAPSULE PO SCH ×2 (09:00→16:36)
[2017-11-07] MEDS: RisperiDONE CONC 3 MG/3 ML SOLUTION ORAL.SYG PO SCH ×2 (09:00→16:39)
[2017-11-07] MEDS: VALPROIC ACID 250 MG/5 ML SYRUP UDCUP PO SCH ×2 (09:00→16:39)
[2017-11-07] MEDS: NYSTATIN 15 GM POWDER BOTTLE TP SCH ×2 (09:00→16:39)
[2017-11-07] MEDS: BENZTROPINE MESYLATE 2 MG TABLET PO SCH ×2 (09:00→16:37)
[2017-11-07] MEDS: HALOPERIDOL LACTATE 5 MG/ML VIAL IM PRN (10:42)
[2017-11-07 16:02] VITALS: BP 107/61
[2017-11-07] MEDS: HALOPERIDOL 5 MG TABLET PO PRN (21:03)
[2017-11-07] MEDS: TraZODone HCL 100 MG TABLET PO SCH (21:03)
[2017-11-08] MEDS: PANTOPRAZOLE SODIUM 40 MG DR TABLET PO SCH (06:20)
[2017-11-08] MEDS: LEVOTHYROXINE SODIUM 75 MCG TABLET PO SCH (06:20)
[2017-11-08 08:23] VITALS: BP 118/70
[2017-11-08] MEDS: RisperiDONE CONC 3 MG/3 ML SOLUTION ORAL.SYG PO SCH ×2 (09:41→16:26)
[2017-11-08] MEDS: BENZTROPINE MESYLATE 2 MG TABLET PO SCH ×2 (09:41→16:27)
[2017-11-08] MEDS: VALPROIC ACID 250 MG/5 ML SYRUP UDCUP PO SCH ×2 (09:41→16:27)
[2017-11-08] MEDS: DOCUSATE SODIUM 100 MG CAPSULE PO SCH ×2 (09:41→16:26)
[2017-11-08] MEDS: NYSTATIN 15 GM POWDER BOTTLE TP SCH ×2 (09:55→16:27)
[2017-11-08] MEDS: LORazepam 2 MG TABLET PO PRN (14:32)
[2017-11-08] MEDS: HALOPERIDOL 5 MG TABLET PO PRN (14:33)
[2017-11-08 16:35] VITALS: BP 112/64
[2017-11-08] MEDS: TraZODone HCL 100 MG TABLET PO SCH (21:04)
[2017-11-09] MEDS: LEVOTHYROXINE SODIUM 75 MCG TABLET PO SCH (06:21)
[2017-11-09] MEDS: PANTOPRAZOLE SODIUM 40 MG DR TABLET PO SCH (06:21)
[2017-11-09 07:02] VITALS: BP 112/59
[2017-11-09 08:02] VITALS: BP 103/60
[2017-11-09] MEDS: RisperiDONE CONC 3 MG/3 ML SOLUTION ORAL.SYG PO SCH ×2 (08:22→16:16)
[2017-11-09] MEDS: VALPROIC ACID 250 MG/5 ML SYRUP UDCUP PO SCH ×2 (08:23→16:16)
[2017-11-09] MEDS: DOCUSATE SODIUM 100 MG CAPSULE PO SCH ×2 (09:00→16:16)
[2017-11-09] MEDS: NYSTATIN 15 GM POWDER BOTTLE TP SCH ×2 (09:00→16:17)
[2017-11-09] MEDS: HALOPERIDOL 5 MG TABLET PO PRN (10:13)
[2017-11-09] MEDS: BENZTROPINE MESYLATE 2 MG TABLET PO SCH ×2 (10:13→16:16)
[2017-11-09 16:18] VITALS: BP 112/67
[2017-11-09] MEDS: TraZODone HCL 100 MG TABLET PO SCH (20:43)
[2017-11-10] MEDS: LEVOTHYROXINE SODIUM 75 MCG TABLET PO SCH (06:23)
[2017-11-10] MEDS: PANTOPRAZOLE SODIUM 40 MG DR TABLET PO SCH (06:23)
[2017-11-10 06:30] VITALS: BP 112/68
[2017-11-10 08:03] VITALS: BP 105/70
[2017-11-10] MEDS: VALPROIC ACID 250 MG/5 ML SYRUP UDCUP PO SCH ×2 (08:03→17:12)
[2017-11-10] MEDS: DOCUSATE SODIUM 100 MG CAPSULE PO SCH ×2 (08:03→17:12)
[2017-11-10] MEDS: RisperiDONE CONC 3 MG/3 ML SOLUTION ORAL.SYG PO SCH ×2 (08:03→17:12)
[2017-11-10] MEDS: BENZTROPINE MESYLATE 2 MG TABLET PO SCH ×2 (08:04→17:28)
[2017-11-10] MEDS: NYSTATIN 15 GM POWDER BOTTLE TP SCH ×2 (08:04→17:11)
[2017-11-10 16:00] VITALS: BP 109/64
[2017-11-10] MEDS: TraZODone HCL 100 MG TABLET PO SCH (20:44)
[2017-11-11] MEDS: LEVOTHYROXINE SODIUM 75 MCG TABLET PO SCH (06:33)
[2017-11-11] MEDS: PANTOPRAZOLE SODIUM 40 MG DR TABLET PO SCH (06:33)
[2017-11-11] MEDS: VALPROIC ACID 250 MG/5 ML SYRUP UDCUP PO SCH ×2 (08:24→16:07)
[2017-11-11] MEDS: BENZTROPINE MESYLATE 2 MG TABLET PO SCH ×2 (08:24→16:07)
[2017-11-11] MEDS: NYSTATIN 15 GM POWDER BOTTLE TP SCH ×2 (08:24→16:09)
[2017-11-11] MEDS: RisperiDONE CONC 3 MG/3 ML SOLUTION ORAL.SYG PO SCH ×2 (08:24→16:09)
[2017-11-11] MEDS: HALOPERIDOL 5 MG TABLET PO PRN (08:25)
[2017-11-11] MEDS: DOCUSATE SODIUM 100 MG CAPSULE PO SCH ×2 (09:24→16:07)
[2017-11-11 16:00] VITALS: BP 110/63
[2017-11-11] MEDS: TraZODone HCL 100 MG TABLET PO SCH (20:25)
[2017-11-12] MEDS: LEVOTHYROXINE SODIUM 75 MCG TABLET PO SCH (06:31)
[2017-11-12] MEDS: PANTOPRAZOLE SODIUM 40 MG DR TABLET PO SCH (06:31)
[2017-11-12 08:46] VITALS: BP 95/54
[2017-11-12 09:06] LABS: BASOPHILS % (AUTO) 0.6 % (0.0-2.0); EOSINOPHILS % (AUTO) 0.4 % (1.0-6.0); HEMATOCRIT 41.6 % (36-46); HEMOGLOBIN 14.1 g/dL (12.0-16.0); LYMPHOCYTES # (AUTO) 2.2 K/uL (1.0-4.8); LYMPHOCYTES % (AUTO) 46.2 % (22.0-44.0); MEAN CORPUSCULAR HEMOGLOBIN 32.2 pg (26.0-34.0); MEAN CORPUSCULAR VOLUME 95 fL (80-100); MONOCYTES # (AUTO) 0.5 K/uL (0.1-1.0); MONOCYTES % (AUTO) 11.3 % (2.0-9.0); NEUTROPHILS # (AUTO) 1.9 K/uL (1.8-7.7); NEUTROPHILS % (AUTO) 41.5 % (40.0-70.0); PLATELET COUNT (AUTO) 213 K/uL (150-450); RED BLOOD CELL COUNT(AUTO) 4.39 MIL/uL (4.00-5.20); RED CELL DISTRIBUTION WIDTH 13.3 % (11.5-14.5)
[2017-11-12 09:27] LABS: ALBUMIN 2.7 g/dL (3.4-5.0); BILIRUBIN,TOTAL 0.4 mg/dL (0.1-1.0); CALCIUM, TOTAL 9.2 mg/dL (8.8-10.5); CREATININE 1.07 mg/dL (0.60-1.30); POTASSIUM 3.7 mmol/L (3.5-5.1); TOTAL PROTEIN, SERUM 5.6 g/dL (6.4-8.2)
[2017-11-12] MEDS: NYSTATIN 15 GM POWDER BOTTLE TP SCH ×2 (09:30→16:49)
[2017-11-12] MEDS: RisperiDONE CONC 3 MG/3 ML SOLUTION ORAL.SYG PO SCH ×2 (09:31→16:35)
[2017-11-12] MEDS: VALPROIC ACID 250 MG/5 ML SYRUP UDCUP PO SCH ×2 (09:31→16:35)
[2017-11-12] MEDS: BENZTROPINE MESYLATE 2 MG TABLET PO SCH ×2 (09:31→16:35)
[2017-11-12] MEDS: DOCUSATE SODIUM 100 MG CAPSULE PO SCH ×2 (09:31→16:35)
[2017-11-12] MEDS: HALOPERIDOL 5 MG TABLET PO PRN ×2 (13:26→16:44)
[2017-11-12 16:29] VITALS: BP 120/66
[2017-11-12] MEDS: TraZODone HCL 100 MG TABLET PO SCH (20:19)
[2017-11-13 01:42] VITALS: BP 110/68
[2017-11-13] MEDS: LORazepam 2 MG TABLET PO PRN (01:52)
[2017-11-13] MEDS: PANTOPRAZOLE SODIUM 40 MG DR TABLET PO SCH (06:30)
[2017-11-13] MEDS: LEVOTHYROXINE SODIUM 75 MCG TABLET PO SCH (06:30)
[2017-11-13 08:21] VITALS: BP 119/57
[2017-11-13] MEDS: DOCUSATE SODIUM 100 MG CAPSULE PO SCH ×2 (09:00→17:05)
[2017-11-13] MEDS: VALPROIC ACID 250 MG/5 ML SYRUP UDCUP PO SCH ×2 (09:00→17:04)
[2017-11-13] MEDS: NYSTATIN 15 GM POWDER BOTTLE TP SCH ×2 (09:01→17:05)
[2017-11-13] MEDS: RisperiDONE CONC 3 MG/3 ML SOLUTION ORAL.SYG PO SCH ×2 (09:01→17:05)
[2017-11-13] MEDS: BENZTROPINE MESYLATE 2 MG TABLET PO SCH ×2 (09:01→17:04)
[2017-11-13 16:21] VITALS: BP 124/54
[2017-11-13 17:30] VITALS: BP 138/64
[2017-11-13] MEDS: TraZODone HCL 100 MG TABLET PO SCH (20:57)
[2017-11-13] MEDS: HALOPERIDOL 5 MG TABLET PO PRN (20:57)
[2017-11-14] MEDS: PANTOPRAZOLE SODIUM 40 MG DR TABLET PO SCH (06:18)
[2017-11-14] MEDS: LEVOTHYROXINE SODIUM 75 MCG TABLET PO SCH (06:18)
[2017-11-14 08:25] VITALS: BP 107/73
[2017-11-14] MEDS: BENZTROPINE MESYLATE 2 MG TABLET PO SCH ×2 (09:10→17:07)
[2017-11-14] MEDS: NYSTATIN 15 GM POWDER BOTTLE TP SCH ×2 (09:10→17:08)
[2017-11-14] MEDS: VALPROIC ACID 250 MG/5 ML SYRUP UDCUP PO SCH ×2 (09:11→17:07)
[2017-11-14] MEDS: DOCUSATE SODIUM 100 MG CAPSULE PO SCH ×2 (09:11→17:07)
[2017-11-14] MEDS: RisperiDONE CONC 3 MG/3 ML SOLUTION ORAL.SYG PO SCH ×2 (09:11→17:08)
[2017-11-14 16:14] VITALS: BP 116/56
[2017-11-14] MEDS: TraZODone HCL 100 MG TABLET PO SCH (20:33)
[2017-11-14] MEDS: ZINC OXIDE 40%/COD LIVER OIL 57 GM PASTE TP PRN (20:39)
[2017-11-15] MEDS: PANTOPRAZOLE SODIUM 40 MG DR TABLET PO SCH (06:09)
[2017-11-15] MEDS: LEVOTHYROXINE SODIUM 75 MCG TABLET PO SCH (06:09)
[2017-11-15 07:08] VITALS: BP 105/60
[2017-11-15 08:30] VITALS: BP 117/68
[2017-11-15 08:49] LABS: BASOPHILS % (AUTO) 0.4 % (0.0-2.0); EOSINOPHILS % (AUTO) 0.5 % (1.0-6.0); HEMATOCRIT 40.9 % (36-46); HEMOGLOBIN 14.2 g/dL (12.0-16.0); LYMPHOCYTES # (AUTO) 2.1 K/uL (1.0-4.8); LYMPHOCYTES % (AUTO) 48.1 % (22.0-44.0); MEAN CORPUSCULAR HEMOGLOBIN 32.4 pg (26.0-34.0); MEAN CORPUSCULAR HGB CONC 34.6 G/dL (31.0-37.0); MEAN CORPUSCULAR VOLUME 94 fL (80-100); MONOCYTES # (AUTO) 0.5 K/uL (0.1-1.0); MONOCYTES % (AUTO) 11.2 % (2.0-9.0); NEUTROPHILS # (AUTO) 1.7 K/uL (1.8-7.7); NEUTROPHILS % (AUTO) 39.8 % (40.0-70.0); PLATELET COUNT (AUTO) 198 K/uL (150-450); RED BLOOD CELL COUNT(AUTO) 4.37 MIL/uL (4.00-5.20); RED CELL DISTRIBUTION WIDTH 13.5 % (11.5-14.5)
[2017-11-15 09:08] LABS: ALBUMIN 2.6 g/dL (3.4-5.0); BILIRUBIN,TOTAL 0.4 mg/dL (0.1-1.0); CREATININE 1.02 mg/dL (0.60-1.30); POTASSIUM 4.1 mmol/L (3.5-5.1); TOTAL PROTEIN, SERUM 5.4 g/dL (6.4-8.2)
[2017-11-15] MEDS: ZINC SULFATE 220 MG CAPSULE PO SCH (09:18)
[2017-11-15] MEDS: ASCORBIC ACID 500 MG TABLET PO SCH (09:18)
[2017-11-15] MEDS: RisperiDONE CONC 3 MG/3 ML SOLUTION ORAL.SYG PO SCH ×2 (09:19→17:23)
[2017-11-15] MEDS: DOCUSATE SODIUM 100 MG CAPSULE PO SCH ×2 (09:19→17:26)
[2017-11-15] MEDS: MULTIVITAMINS WITH MINERALS, THERAPEUTIC TABLET PO SCH (09:19)
[2017-11-15] MEDS: BENZTROPINE MESYLATE 2 MG TABLET PO SCH ×2 (09:19→17:24)
[2017-11-15] MEDS: NYSTATIN 15 GM POWDER BOTTLE TP SCH ×2 (09:19→17:24)
[2017-11-15] MEDS: VALPROIC ACID 250 MG/5 ML SYRUP UDCUP PO SCH ×3 (09:21→17:24)
[2017-11-15 16:26] VITALS: BP 102/45
[2017-11-15] MEDS: TraZODone HCL 100 MG TABLET PO SCH (20:23)
[2017-11-16] MEDS: PANTOPRAZOLE SODIUM 40 MG DR TABLET PO SCH (06:14)
[2017-11-16] MEDS: LEVOTHYROXINE SODIUM 75 MCG TABLET PO SCH (06:14)
[2017-11-16 06:36] VITALS: BP 101/62
[2017-11-16] MEDS: BENZTROPINE MESYLATE 2 MG TABLET PO SCH ×2 (08:22→16:48)
[2017-11-16] MEDS: DOCUSATE SODIUM 100 MG CAPSULE PO SCH ×2 (08:22→16:48)
[2017-11-16] MEDS: MULTIVITAMINS WITH MINERALS, THERAPEUTIC TABLET PO SCH (08:22)
[2017-11-16] MEDS: RisperiDONE CONC 3 MG/3 ML SOLUTION ORAL.SYG PO SCH ×2 (08:23→16:49)
[2017-11-16] MEDS: VALPROIC ACID 250 MG/5 ML SYRUP UDCUP PO SCH ×2 (08:23→16:48)
[2017-11-16] MEDS: ZINC SULFATE 220 MG CAPSULE PO SCH (08:24)
[2017-11-16] MEDS: ASCORBIC ACID 500 MG TABLET PO SCH (08:24)
[2017-11-16] MEDS: NYSTATIN 15 GM POWDER BOTTLE TP SCH ×2 (08:25→16:48)
[2017-11-16 08:44] VITALS: BP 107/64
[2017-11-16] MEDS: ZINC OXIDE 40%/COD LIVER OIL 57 GM PASTE TP PRN ×2 (14:14→20:37)
[2017-11-16 16:40] VITALS: BP 103/68
[2017-11-16] MEDS: TraZODone HCL 100 MG TABLET PO SCH (20:34)
[2017-11-17] VITALS (7 sets, daily range): BP systolic 98–123; BP diastolic 65–77
[2017-11-17] MEDS: LORazepam 2 MG TABLET PO PRN ×2 (06:25→12:09)
[2017-11-17] MEDS: LEVOTHYROXINE SODIUM 75 MCG TABLET PO SCH (06:31)
[2017-11-17] MEDS: PANTOPRAZOLE SODIUM 40 MG DR TABLET PO SCH (06:31)
[2017-11-17] MEDS: DOCUSATE SODIUM 100 MG CAPSULE PO SCH ×2 (08:24→17:09)
[2017-11-17] MEDS: MULTIVITAMINS WITH MINERALS, THERAPEUTIC TABLET PO SCH (08:24)
[2017-11-17] MEDS: NYSTATIN 15 GM POWDER BOTTLE TP SCH ×2 (08:31→17:09)
[2017-11-17] MEDS: ZINC SULFATE 220 MG CAPSULE PO SCH (08:32)
[2017-11-17] MEDS: ASCORBIC ACID 500 MG TABLET PO SCH (08:32)
[2017-11-17] MEDS: BENZTROPINE MESYLATE 2 MG TABLET PO SCH ×2 (08:33→17:09)
[2017-11-17] MEDS: VALPROIC ACID 250 MG/5 ML SYRUP UDCUP PO SCH ×2 (08:33→17:09)
[2017-11-17] MEDS: RisperiDONE CONC 3 MG/3 ML SOLUTION ORAL.SYG PO SCH ×2 (08:35→17:00)
[2017-11-17] MEDS ORDERED: MULT-1239 PO (19:40)
[2017-11-17] MEDS ORDERED: LORA2TAB80 PO (19:40)
[2017-11-17] MEDS ORDERED: NYST30CR9 TP (19:40)
[2017-11-17] MEDS ORDERED: ZINC220 PO (19:40)
[2017-11-17] MEDS ORDERED: HALO5TAB23 PO (19:40)
[2017-11-17] MEDS ORDERED: ASCO250T5 PO (19:40)
[2017-11-17] MEDS ORDERED: ZOLP5TAB2 PO (19:40)
[2017-11-17] MEDS: TraZODone HCL 100 MG TABLET PO SCH (22:20)
[2017-11-18 00:43] VITALS: BP 104/78
[2017-11-18 06:34] VITALS: BP 108/78
[2017-11-18] MEDS: PANTOPRAZOLE SODIUM 40 MG DR TABLET PO SCH (06:34)
[2017-11-18] MEDS: LEVOTHYROXINE SODIUM 75 MCG TABLET PO SCH (06:34)
[2017-11-18] MEDS: DOCUSATE SODIUM 100 MG CAPSULE PO SCH ×2 (09:33→16:52)
[2017-11-18] MEDS: MULTIVITAMINS WITH MINERALS, THERAPEUTIC TABLET PO SCH (09:33)
[2017-11-18] MEDS: ZINC SULFATE 220 MG CAPSULE PO SCH (09:33)
[2017-11-18] MEDS: ASCORBIC ACID 500 MG TABLET PO SCH (09:33)
[2017-11-18] MEDS: VALPROIC ACID 250 MG/5 ML SYRUP UDCUP PO SCH ×2 (09:33→16:52)
[2017-11-18] MEDS: BENZTROPINE MESYLATE 2 MG TABLET PO SCH ×2 (09:33→16:52)
[2017-11-18] MEDS: RisperiDONE CONC 3 MG/3 ML SOLUTION ORAL.SYG PO SCH ×2 (09:34→16:52)
[2017-11-18] MEDS: NYSTATIN 15 GM POWDER BOTTLE TP SCH ×2 (10:09→16:53)
[2017-11-18 16:13] VITALS: BP 112/60
[2017-11-18 18:00] VITALS: BP 105/71
[2017-11-18] MEDS: TraZODone HCL 100 MG TABLET PO SCH (20:25)
[2017-11-19 06:28] VITALS: BP 102/60
[2017-11-19] MEDS: PANTOPRAZOLE SODIUM 40 MG DR TABLET PO SCH (06:42)
[2017-11-19] MEDS: LEVOTHYROXINE SODIUM 75 MCG TABLET PO SCH (06:42)
[2017-11-19 08:18] VITALS: BP 127/64
[2017-11-19 08:45] LABS: BASOPHILS % (AUTO) 0.4 % (0.0-2.0); EOSINOPHILS % (AUTO) 0.4 % (1.0-6.0); HEMATOCRIT 41.4 % (36-46); HEMOGLOBIN 14.3 g/dL (12.0-16.0); LYMPHOCYTES # (AUTO) 1.7 K/uL (1.0-4.8); LYMPHOCYTES % (AUTO) 43.2 % (22.0-44.0); MEAN CORPUSCULAR HEMOGLOBIN 32.5 pg (26.0-34.0); MEAN CORPUSCULAR HGB CONC 34.6 G/dL (31.0-37.0); MEAN CORPUSCULAR VOLUME 94 fL (80-100); MONOCYTES # (AUTO) 0.3 K/uL (0.1-1.0); MONOCYTES % (AUTO) 7.6 % (2.0-9.0); NEUTROPHILS # (AUTO) 1.9 K/uL (1.8-7.7); NEUTROPHILS % (AUTO) 48.4 % (40.0-70.0); PLATELET COUNT (AUTO) 153 K/uL (150-450); RED BLOOD CELL COUNT(AUTO) 4.41 MIL/uL (4.00-5.20); RED CELL DISTRIBUTION WIDTH 13.6 % (11.5-14.5)
[2017-11-19 09:22] LABS: CALCIUM, TOTAL 9.5 mg/dL (8.8-10.5)
[2017-11-19] MEDS: ZINC SULFATE 220 MG CAPSULE PO SCH (09:37)
[2017-11-19] MEDS: ASCORBIC ACID 500 MG TABLET PO SCH (09:37)
[2017-11-19] MEDS: BENZTROPINE MESYLATE 2 MG TABLET PO SCH ×2 (09:37→16:51)
[2017-11-19] MEDS: MULTIVITAMINS WITH MINERALS, THERAPEUTIC TABLET PO SCH (09:37)
[2017-11-19] MEDS: VALPROIC ACID 250 MG/5 ML SYRUP UDCUP PO SCH ×2 (09:37→16:52)
[2017-11-19] MEDS: RisperiDONE CONC 3 MG/3 ML SOLUTION ORAL.SYG PO SCH ×2 (09:38→16:52)
[2017-11-19] MEDS: DOCUSATE SODIUM 100 MG CAPSULE PO SCH ×2 (09:38→16:51)
[2017-11-19] MEDS: NYSTATIN 15 GM POWDER BOTTLE TP SCH ×2 (09:39→16:52)
[2017-11-19 11:18] VITALS: BP 118/78
[2017-11-19] MEDS: LORazepam 2 MG TABLET PO PRN (11:21)
[2017-11-19 11:55] VITALS: BP 118/78
[2017-11-19] MEDS: ZINC OXIDE 40%/COD LIVER OIL 57 GM PASTE TP PRN (14:24)
[2017-11-19 16:00] VITALS: BP 110/67
[2017-11-19] MEDS: TraZODone HCL 100 MG TABLET PO SCH (20:46)
[2017-11-20 06:07] VITALS: BP 116/66
[2017-11-20] MEDS: LEVOTHYROXINE SODIUM 75 MCG TABLET PO SCH (06:13)
[2017-11-20] MEDS: PANTOPRAZOLE SODIUM 40 MG DR TABLET PO SCH (06:13)
[2017-11-20 09:30] LABS: AMPHET/METH SCREEN,URINE NEGATIVE (NEGATIVE); BARBITURATE SCREEN, URINE NEGATIVE (NEGATIVE); BENZODIAZEPINES SCREEN,URINE NEGATIVE (NEGATIVE); CANNABINOID SCREEN,URINE NEGATIVE (NEGATIVE); COCAINE SCREEN,URINE NEGATIVE (NEGATIVE); METHADONE SCREEN, URINE NEGATIVE (NEGATIVE); OPIATE SCREEN,URINE NEGATIVE (NEGATIVE)
[2017-11-20 09:33] LABS: APPEARANCE,URINE CLOUDY (CLEAR); BILIRUBIN,URINE NEGATIVE (NEGATIVE); GLUCOSE, URINE (UA) NEGATIVE (NEGATIVE); KETONES,URINE NEGATIVE (NEGATIVE); LEUKOCYTE ESTERASE ,URINE TRACE (NEGATIVE); NITRATE,URINE NEGATIVE (NEGATIVE); OCCULT BLOOD,URINE NEGATIVE (NEGATIVE); PH,URINE 7.5 (5.0-8.0); PHENCYCLIDINE SCREEN,URINE NEGATIVE (NEGATIVE); PROTEIN,URINE NEGATIVE (NEGATIVE); UROBILINOGEN,URINE 0.2 mg/dL (<=1.0)
[2017-11-20] MEDS: VALPROIC ACID 250 MG/5 ML SYRUP UDCUP PO SCH ×2 (09:35→17:06)
[2017-11-20] MEDS: MULTIVITAMINS WITH MINERALS, THERAPEUTIC TABLET PO SCH (09:35)
[2017-11-20] MEDS: DOCUSATE SODIUM 100 MG CAPSULE PO SCH ×2 (09:35→17:06)
[2017-11-20] MEDS: BENZTROPINE MESYLATE 2 MG TABLET PO SCH ×2 (09:35→17:05)
[2017-11-20] MEDS: ASCORBIC ACID 500 MG TABLET PO SCH (09:36)
[2017-11-20] MEDS: NYSTATIN 15 GM POWDER BOTTLE TP SCH ×2 (09:37→17:05)
[2017-11-20] MEDS: RisperiDONE CONC 3 MG/3 ML SOLUTION ORAL.SYG PO SCH ×2 (09:37→17:05)
[2017-11-20] MEDS: ZINC SULFATE 220 MG CAPSULE PO SCH (09:37)
[2017-11-20 09:47] LABS: AMORPHOUS SEDIMENT,UR Few /LPF (None Seen); BACTERIA,URINE None Seen /HPF (None Seen); RBC,URINE None Seen /HPF (0-2); SQUAMOUS EPITHELIAL CELL,UR Few /LPF (None Seen); WBC,URINE 0-2 /HPF (0-5)
[2017-11-20 16:00] VITALS: BP 126/83
[2017-11-20] MEDS: TraZODone HCL 100 MG TABLET PO SCH (20:29)
[2017-11-21 06:22] VITALS: BP 125/75
[2017-11-21] MEDS: PANTOPRAZOLE SODIUM 40 MG DR TABLET PO SCH (06:51)
[2017-11-21] MEDS: LEVOTHYROXINE SODIUM 75 MCG TABLET PO SCH (06:51)
[2017-11-21 08:03] VITALS: BP 128/72
[2017-11-21] MEDS: RisperiDONE CONC 3 MG/3 ML SOLUTION ORAL.SYG PO SCH ×2 (08:05→16:45)
[2017-11-21] MEDS: ASCORBIC ACID 500 MG TABLET PO SCH (08:05)
[2017-11-21] MEDS: ZINC SULFATE 220 MG CAPSULE PO SCH (08:05)
[2017-11-21] MEDS: VALPROIC ACID 250 MG/5 ML SYRUP UDCUP PO SCH ×2 (08:06→16:45)
[2017-11-21] MEDS: BENZTROPINE MESYLATE 2 MG TABLET PO SCH ×2 (08:06→16:45)
[2017-11-21] MEDS: MULTIVITAMINS WITH MINERALS, THERAPEUTIC TABLET PO SCH (08:06)
[2017-11-21] MEDS: DOCUSATE SODIUM 100 MG CAPSULE PO SCH ×2 (08:06→16:45)
[2017-11-21] MEDS: NYSTATIN 15 GM POWDER BOTTLE TP SCH ×2 (08:06→16:45)
[2017-11-21] MEDS ORDERED: TUBERCULIN, PURIFIED PROTEIN DERIVATIVE 5 TU/0.1 ML SYRINGE ID ONE (16:00)
[2017-11-21 16:42] VITALS: BP 115/71
[2017-11-21] MEDS: TraZODone HCL 100 MG TABLET PO SCH (20:38)
[2017-11-22 00:20] VITALS: BP 106/62
[2017-11-22] MEDS: LORazepam 2 MG TABLET PO PRN ×3 (00:26→14:32)
[2017-11-22] MEDS: LEVOTHYROXINE SODIUM 75 MCG TABLET PO SCH (06:33)
[2017-11-22] MEDS: PANTOPRAZOLE SODIUM 40 MG DR TABLET PO SCH (06:33)
[2017-11-22] MEDS: VALPROIC ACID 250 MG/5 ML SYRUP UDCUP PO SCH ×2 (09:28→16:35)
[2017-11-22] MEDS: BENZTROPINE MESYLATE 2 MG TABLET PO SCH ×2 (09:28→16:34)
[2017-11-22] MEDS: RisperiDONE CONC 3 MG/3 ML SOLUTION ORAL.SYG PO SCH ×2 (09:29→16:36)
[2017-11-22] MEDS: NYSTATIN 15 GM POWDER BOTTLE TP SCH ×2 (09:29→17:03)
[2017-11-22] MEDS: MULTIVITAMINS WITH MINERALS, THERAPEUTIC TABLET PO SCH (09:29)
[2017-11-22] MEDS: DOCUSATE SODIUM 100 MG CAPSULE PO SCH ×2 (09:29→16:34)
[2017-11-22 09:38] VITALS: BP 121/95
[2017-11-22] MEDS: ASCORBIC ACID 500 MG TABLET PO SCH (10:11)
[2017-11-22] MEDS: ZINC SULFATE 220 MG CAPSULE PO SCH (10:11)
[2017-11-22 16:33] VITALS: BP 100/60
[2017-11-22] MEDS: TraZODone HCL 100 MG TABLET PO SCH (20:18)
[2017-11-23 06:24] VITALS: BP 105/65
[2017-11-23] MEDS: PANTOPRAZOLE SODIUM 40 MG DR TABLET PO SCH (06:41)
[2017-11-23] MEDS: LEVOTHYROXINE SODIUM 75 MCG TABLET PO SCH (06:41)
[2017-11-23] MEDS: RisperiDONE CONC 3 MG/3 ML SOLUTION ORAL.SYG PO SCH ×2 (09:41→16:45)
[2017-11-23] MEDS: DOCUSATE SODIUM 100 MG CAPSULE PO SCH ×2 (09:41→16:45)
[2017-11-23] MEDS: VALPROIC ACID 250 MG/5 ML SYRUP UDCUP PO SCH ×2 (09:41→16:45)
[2017-11-23] MEDS: NYSTATIN 15 GM POWDER BOTTLE TP SCH ×2 (09:41→16:45)
[2017-11-23] MEDS: ZINC SULFATE 220 MG CAPSULE PO SCH (09:41)
[2017-11-23] MEDS: MULTIVITAMINS WITH MINERALS, THERAPEUTIC TABLET PO SCH (09:41)
[2017-11-23] MEDS: BENZTROPINE MESYLATE 2 MG TABLET PO SCH ×2 (09:41→16:45)
[2017-11-23] MEDS: ASCORBIC ACID 500 MG TABLET PO SCH (09:42)
[2017-11-23] MEDS: LORazepam 2 MG TABLET PO PRN ×2 (09:42→16:45)
[2017-11-23 14:43] VITALS: BP 98/68
[2017-11-23 16:04] VITALS: BP 109/61
[2017-11-23] MEDS: TraZODone HCL 100 MG TABLET PO SCH (20:46)
[2017-11-23] MEDS: HALOPERIDOL 5 MG TABLET PO PRN (20:47)
[2017-11-24] MEDS: PANTOPRAZOLE SODIUM 40 MG DR TABLET PO SCH (06:26)
[2017-11-24] MEDS: LEVOTHYROXINE SODIUM 75 MCG TABLET PO SCH (06:26)
[2017-11-24 07:18] VITALS: BP 102/60
[2017-11-24 08:03] VITALS: BP 128/81
[2017-11-24] MEDS: VALPROIC ACID 250 MG/5 ML SYRUP UDCUP PO SCH ×2 (09:03→16:54)
[2017-11-24] MEDS: NYSTATIN 15 GM POWDER BOTTLE TP SCH ×2 (09:04→16:54)
[2017-11-24] MEDS: MULTIVITAMINS WITH MINERALS, THERAPEUTIC TABLET PO SCH (09:04)
[2017-11-24] MEDS: BENZTROPINE MESYLATE 2 MG TABLET PO SCH ×2 (09:04→16:53)
[2017-11-24] MEDS: ASCORBIC ACID 500 MG TABLET PO SCH (09:04)
[2017-11-24] MEDS: RisperiDONE CONC 3 MG/3 ML SOLUTION ORAL.SYG PO SCH ×2 (09:04→16:53)
[2017-11-24] MEDS: ZINC SULFATE 220 MG CAPSULE PO SCH (09:04)
[2017-11-24] MEDS: DOCUSATE SODIUM 100 MG CAPSULE PO SCH ×2 (09:04→16:53)
[2017-11-24] MEDS: LORazepam 2 MG TABLET PO PRN ×2 (09:19→13:48)
[2017-11-24 16:28] VITALS: BP 108/74
[2017-11-24] MEDS: HALOPERIDOL 5 MG TABLET PO PRN (16:54)
[2017-11-24] MEDS: TraZODone HCL 100 MG TABLET PO SCH (21:24)
[2017-11-25] MEDS: LEVOTHYROXINE SODIUM 75 MCG TABLET PO SCH (06:35)
[2017-11-25] MEDS: PANTOPRAZOLE SODIUM 40 MG DR TABLET PO SCH (06:35)
[2017-11-25 08:28] VITALS: BP 106/64
[2017-11-25] MEDS: DOCUSATE SODIUM 100 MG CAPSULE PO SCH ×2 (09:01→16:32)
[2017-11-25] MEDS: BENZTROPINE MESYLATE 2 MG TABLET PO SCH ×2 (09:01→16:32)
[2017-11-25] MEDS: RisperiDONE CONC 3 MG/3 ML SOLUTION ORAL.SYG PO SCH ×2 (09:02→16:33)
[2017-11-25] MEDS: ZINC SULFATE 220 MG CAPSULE PO SCH (09:02)
[2017-11-25] MEDS: ASCORBIC ACID 500 MG TABLET PO SCH (09:02)
[2017-11-25] MEDS: NYSTATIN 15 GM POWDER BOTTLE TP SCH ×2 (09:02→16:32)
[2017-11-25] MEDS: MULTIVITAMINS WITH MINERALS, THERAPEUTIC TABLET PO SCH (09:02)
[2017-11-25] MEDS: VALPROIC ACID 250 MG/5 ML SYRUP UDCUP PO SCH ×2 (09:03→16:32)
[2017-11-25] MEDS: HALOPERIDOL 5 MG TABLET PO PRN ×3 (09:58→21:30)
[2017-11-25] MEDS: LORazepam 2 MG TABLET PO PRN ×3 (09:58→21:30)
[2017-11-25 17:40] VITALS: BP 112/76
[2017-11-25] MEDS: TraZODone HCL 100 MG TABLET PO SCH (21:30)
[2017-11-26 06:33] VITALS: BP 104/63
[2017-11-26] MEDS: LEVOTHYROXINE SODIUM 75 MCG TABLET PO SCH (06:39)
[2017-11-26] MEDS: PANTOPRAZOLE SODIUM 40 MG DR TABLET PO SCH (06:39)
[2017-11-26] MEDS: BENZTROPINE MESYLATE 2 MG TABLET PO SCH ×2 (09:07→17:09)
[2017-11-26] MEDS: DOCUSATE SODIUM 100 MG CAPSULE PO SCH ×2 (09:07→17:09)
[2017-11-26] MEDS: MULTIVITAMINS WITH MINERALS, THERAPEUTIC TABLET PO SCH (09:07)
[2017-11-26] MEDS: LORazepam 2 MG TABLET PO PRN ×2 (09:08→13:29)
[2017-11-26] MEDS: VALPROIC ACID 250 MG/5 ML SYRUP UDCUP PO SCH ×2 (09:08→17:10)
[2017-11-26] MEDS: NYSTATIN 15 GM POWDER BOTTLE TP SCH ×2 (09:08→17:10)
[2017-11-26] MEDS: ASCORBIC ACID 500 MG TABLET PO SCH (09:08)
[2017-11-26] MEDS: ZINC SULFATE 220 MG CAPSULE PO SCH (09:08)
[2017-11-26] MEDS: RisperiDONE CONC 3 MG/3 ML SOLUTION ORAL.SYG PO SCH ×2 (09:08→17:10)
[2017-11-26 09:20] VITALS: BP 102/67
[2017-11-26 16:13] VITALS: BP 128/75
[2017-11-26] MEDS: TraZODone HCL 100 MG TABLET PO SCH (20:30)
[2017-11-27 06:26] VITALS: BP 100/68
[2017-11-27] MEDS: LEVOTHYROXINE SODIUM 75 MCG TABLET PO SCH (06:40)
[2017-11-27] MEDS: PANTOPRAZOLE SODIUM 40 MG DR TABLET PO SCH (06:40)
[2017-11-27 08:29] VITALS: BP 107/70
[2017-11-27] MEDS: NYSTATIN 15 GM POWDER BOTTLE TP SCH ×2 (09:51→16:58)
[2017-11-27] MEDS: RisperiDONE CONC 3 MG/3 ML SOLUTION ORAL.SYG PO SCH ×2 (09:51→16:58)
[2017-11-27] MEDS: ASCORBIC ACID 500 MG TABLET PO SCH (09:52)
[2017-11-27] MEDS: MULTIVITAMINS WITH MINERALS, THERAPEUTIC TABLET PO SCH (09:52)
[2017-11-27] MEDS: DOCUSATE SODIUM 100 MG CAPSULE PO SCH ×2 (09:52→16:59)
[2017-11-27] MEDS: LORazepam 2 MG TABLET PO PRN (09:53)
[2017-11-27] MEDS: BENZTROPINE MESYLATE 2 MG TABLET PO SCH ×2 (09:53→16:59)
[2017-11-27] MEDS: ZINC SULFATE 220 MG CAPSULE PO SCH (09:53)
[2017-11-27] MEDS: VALPROIC ACID 250 MG/5 ML SYRUP UDCUP PO SCH ×2 (10:12→16:59)
[2017-11-27 16:20] VITALS: BP 129/77
[2017-11-27] MEDS: TraZODone HCL 100 MG TABLET PO SCH (21:05)
[2017-11-28] MEDS: PANTOPRAZOLE SODIUM 40 MG DR TABLET PO SCH (06:27)
[2017-11-28] MEDS: LEVOTHYROXINE SODIUM 75 MCG TABLET PO SCH (06:41)
[2017-11-28 07:23] VITALS: BP 101/65
[2017-11-28 08:00] VITALS: BP 98/69
[2017-11-28] MEDS: RisperiDONE CONC 3 MG/3 ML SOLUTION ORAL.SYG PO SCH ×2 (08:10→16:57)
[2017-11-28] MEDS: ZINC SULFATE 220 MG CAPSULE PO SCH (08:10)
[2017-11-28] MEDS: ASCORBIC ACID 500 MG TABLET PO SCH (08:11)
[2017-11-28] MEDS: MULTIVITAMINS WITH MINERALS, THERAPEUTIC TABLET PO SCH (08:11)
[2017-11-28] MEDS: VALPROIC ACID 250 MG/5 ML SYRUP UDCUP PO SCH ×2 (08:11→16:57)
[2017-11-28] MEDS: BENZTROPINE MESYLATE 2 MG TABLET PO SCH ×2 (08:11→16:58)
[2017-11-28] MEDS: DOCUSATE SODIUM 100 MG CAPSULE PO SCH ×2 (08:11→16:57)
[2017-11-28] MEDS: NYSTATIN 15 GM POWDER BOTTLE TP SCH ×2 (08:11→16:58)
[2017-11-28] MEDS: LORazepam 2 MG TABLET PO PRN ×3 (08:29→21:02)
[2017-11-28] MEDS: HALOPERIDOL 5 MG TABLET PO PRN ×2 (14:24→21:02)
[2017-11-28 16:37] VITALS: BP 124/84
[2017-11-28] MEDS: TraZODone HCL 100 MG TABLET PO SCH (21:02)
[2017-11-29] MEDS: PANTOPRAZOLE SODIUM 40 MG DR TABLET PO SCH (06:38)
[2017-11-29] MEDS: LEVOTHYROXINE SODIUM 75 MCG TABLET PO SCH (06:38)
[2017-11-29 07:07] VITALS: BP 100/60
[2017-11-29 08:20] VITALS: BP 104/63
[2017-11-29] MEDS: BENZTROPINE MESYLATE 2 MG TABLET PO SCH ×2 (09:38→16:21)
[2017-11-29] MEDS: ASCORBIC ACID 500 MG TABLET PO SCH (09:39)
[2017-11-29] MEDS: ZINC SULFATE 220 MG CAPSULE PO SCH (09:39)
[2017-11-29] MEDS: VALPROIC ACID 250 MG/5 ML SYRUP UDCUP PO SCH ×2 (09:40→16:22)
[2017-11-29] MEDS: NYSTATIN 15 GM POWDER BOTTLE TP SCH ×2 (09:40→16:23)
[2017-11-29] MEDS: MULTIVITAMINS WITH MINERALS, THERAPEUTIC TABLET PO SCH (09:40)
[2017-11-29] MEDS: DOCUSATE SODIUM 100 MG CAPSULE PO SCH ×2 (09:40→16:21)
[2017-11-29] MEDS: RisperiDONE CONC 3 MG/3 ML SOLUTION ORAL.SYG PO SCH ×2 (09:41→16:22)
[2017-11-29] MEDS: LORazepam 2 MG TABLET PO PRN (09:52)
[2017-11-29 16:04] VITALS: BP 112/71
[2017-11-29] MEDS: TraZODone HCL 100 MG TABLET PO SCH (20:45)
[2017-11-30] MEDS: LEVOTHYROXINE SODIUM 75 MCG TABLET PO SCH ×2 (06:25→06:30)
[2017-11-30] MEDS: PANTOPRAZOLE SODIUM 40 MG DR TABLET PO SCH ×2 (06:26→06:30)
[2017-11-30 06:57] VITALS: BP 102/63
[2017-11-30 08:21] VITALS: BP 103/61
[2017-11-30] MEDS: BENZTROPINE MESYLATE 2 MG TABLET PO SCH ×2 (09:15→17:15)
[2017-11-30] MEDS: ASCORBIC ACID 500 MG TABLET PO SCH (09:15)
[2017-11-30] MEDS: VALPROIC ACID 250 MG/5 ML SYRUP UDCUP PO SCH ×2 (09:15→17:16)
[2017-11-30] MEDS: ZINC SULFATE 220 MG CAPSULE PO SCH (09:15)
[2017-11-30] MEDS: DOCUSATE SODIUM 100 MG CAPSULE PO SCH ×2 (09:15→17:15)
[2017-11-30] MEDS: RisperiDONE CONC 3 MG/3 ML SOLUTION ORAL.SYG PO SCH ×2 (09:15→17:16)
[2017-11-30] MEDS: NYSTATIN 15 GM POWDER BOTTLE TP SCH ×2 (09:15→17:16)
[2017-11-30] MEDS: MULTIVITAMINS WITH MINERALS, THERAPEUTIC TABLET PO SCH (09:15)
[2017-11-30 09:20] VITALS: BP 119/78
[2017-11-30] MEDS: LORazepam 2 MG TABLET PO PRN ×2 (09:25→20:54)
[2017-11-30 16:03] VITALS: BP 112/64
[2017-11-30] MEDS: TraZODone HCL 100 MG TABLET PO SCH (20:40)
[2017-12-01 05:17] VITALS: BP 114/71
[2017-12-01 08:33] VITALS: BP 107/68
[2017-12-01] MEDS: BENZTROPINE MESYLATE 2 MG TABLET PO SCH ×2 (09:28→16:31)
[2017-12-01] MEDS: NYSTATIN 15 GM POWDER BOTTLE TP SCH ×2 (09:29→16:38)
[2017-12-01] MEDS: DOCUSATE SODIUM 100 MG CAPSULE PO SCH ×2 (09:29→16:31)
[2017-12-01] MEDS: ZINC SULFATE 220 MG CAPSULE PO SCH (09:29)
[2017-12-01] MEDS: MULTIVITAMINS WITH MINERALS, THERAPEUTIC TABLET PO SCH (09:29)
[2017-12-01] MEDS: VALPROIC ACID 250 MG/5 ML SYRUP UDCUP PO SCH ×2 (09:29→16:31)
[2017-12-01] MEDS: RisperiDONE CONC 3 MG/3 ML SOLUTION ORAL.SYG PO SCH ×2 (09:30→16:30)
[2017-12-01] MEDS: ASCORBIC ACID 500 MG TABLET PO SCH (09:31)
[2017-12-01] MEDS: LORazepam 2 MG TABLET PO PRN ×2 (10:14→16:32)
[2017-12-01 16:00] VITALS: BP 107/68
[2017-12-01] MEDS: TraZODone HCL 100 MG TABLET PO SCH (20:20)
[2017-12-02] MEDS: LEVOTHYROXINE SODIUM 75 MCG TABLET PO SCH (06:31)
[2017-12-02] MEDS: PANTOPRAZOLE SODIUM 40 MG DR TABLET PO SCH (06:31)
[2017-12-02 07:02] VITALS: BP 101/60
[2017-12-02] MEDS: RisperiDONE CONC 3 MG/3 ML SOLUTION ORAL.SYG PO SCH ×2 (08:15→16:14)
[2017-12-02] MEDS: NYSTATIN 15 GM POWDER BOTTLE TP SCH ×2 (08:15→16:20)
[2017-12-02] MEDS: ZINC SULFATE 220 MG CAPSULE PO SCH (08:15)
[2017-12-02] MEDS: BENZTROPINE MESYLATE 2 MG TABLET PO SCH ×2 (08:16→16:13)
[2017-12-02] MEDS: MULTIVITAMINS WITH MINERALS, THERAPEUTIC TABLET PO SCH (08:16)
[2017-12-02] MEDS: VALPROIC ACID 250 MG/5 ML SYRUP UDCUP PO SCH ×2 (08:16→16:14)
[2017-12-02] MEDS: DOCUSATE SODIUM 100 MG CAPSULE PO SCH ×2 (08:16→16:13)
[2017-12-02] MEDS: ASCORBIC ACID 500 MG TABLET PO SCH (08:16)
[2017-12-02] MEDS: LORazepam 2 MG TABLET PO PRN ×2 (08:16→16:13)
[2017-12-02 08:30] VITALS: BP 104/71
[2017-12-02 16:08] VITALS: BP 102/70
[2017-12-02] MEDS: TraZODone HCL 100 MG TABLET PO SCH (20:37)
[2017-12-03 01:08] VITALS: BP 109/71
[2017-12-03] MEDS: HALOPERIDOL 5 MG TABLET PO PRN ×2 (01:10→16:41)
[2017-12-03] MEDS: LORazepam 2 MG TABLET PO PRN ×2 (01:10→21:42)
[2017-12-03] MEDS: LEVOTHYROXINE SODIUM 75 MCG TABLET PO SCH (06:24)
[2017-12-03] MEDS: PANTOPRAZOLE SODIUM 40 MG DR TABLET PO SCH (06:25)
[2017-12-03] MEDS: VALPROIC ACID 250 MG/5 ML SYRUP UDCUP PO SCH ×2 (08:13→16:21)
[2017-12-03] MEDS: RisperiDONE CONC 3 MG/3 ML SOLUTION ORAL.SYG PO SCH ×2 (08:13→16:21)
[2017-12-03] MEDS: MULTIVITAMINS WITH MINERALS, THERAPEUTIC TABLET PO SCH (08:14)
[2017-12-03] MEDS: ZINC SULFATE 220 MG CAPSULE PO SCH (08:14)
[2017-12-03] MEDS: BENZTROPINE MESYLATE 2 MG TABLET PO SCH ×2 (08:14→16:21)
[2017-12-03] MEDS: NYSTATIN 15 GM POWDER BOTTLE TP SCH ×2 (08:14→16:21)
[2017-12-03] MEDS: DOCUSATE SODIUM 100 MG CAPSULE PO SCH ×2 (08:14→16:21)
[2017-12-03] MEDS: ASCORBIC ACID 500 MG TABLET PO SCH (08:14)
[2017-12-03 08:36] VITALS: BP 108/60
[2017-12-03 16:00] VITALS: BP 108/66
[2017-12-03] MEDS: TraZODone HCL 100 MG TABLET PO SCH (20:15)
[2017-12-04] MEDS: LEVOTHYROXINE SODIUM 75 MCG TABLET PO SCH (06:36)
[2017-12-04] MEDS: PANTOPRAZOLE SODIUM 40 MG DR TABLET PO SCH (06:36)
[2017-12-04 08:02] VITALS: BP 108/67
[2017-12-04] MEDS: MULTIVITAMINS WITH MINERALS, THERAPEUTIC TABLET PO SCH (08:24)
[2017-12-04] MEDS: BENZTROPINE MESYLATE 2 MG TABLET PO SCH ×2 (08:24→16:25)
[2017-12-04] MEDS: RisperiDONE CONC 3 MG/3 ML SOLUTION ORAL.SYG PO SCH ×2 (08:24→16:24)
[2017-12-04] MEDS: ZINC SULFATE 220 MG CAPSULE PO SCH (08:24)
[2017-12-04] MEDS: VALPROIC ACID 250 MG/5 ML SYRUP UDCUP PO SCH ×2 (08:24→16:23)
[2017-12-04] MEDS: NYSTATIN 15 GM POWDER BOTTLE TP SCH ×2 (08:24→16:24)
[2017-12-04] MEDS: ASCORBIC ACID 500 MG TABLET PO SCH (08:24)
[2017-12-04] MEDS: DOCUSATE SODIUM 100 MG CAPSULE PO SCH ×2 (08:24→16:25)
[2017-12-04] MEDS: LORazepam 2 MG TABLET PO PRN (10:42)
[2017-12-04 16:32] VITALS: BP 114/68
[2017-12-04] MEDS: TraZODone HCL 100 MG TABLET PO SCH (20:31)
[2017-12-05] MEDS: PANTOPRAZOLE SODIUM 40 MG DR TABLET PO SCH (05:50)
[2017-12-05] MEDS: LEVOTHYROXINE SODIUM 75 MCG TABLET PO SCH (05:50)
[2017-12-05 07:07] VITALS: BP 116/65
[2017-12-05] MEDS: VALPROIC ACID 250 MG/5 ML SYRUP UDCUP PO SCH ×2 (08:07→16:45)
[2017-12-05] MEDS: BENZTROPINE MESYLATE 2 MG TABLET PO SCH ×2 (08:08→16:44)
[2017-12-05] MEDS: MULTIVITAMINS WITH MINERALS, THERAPEUTIC TABLET PO SCH (08:08)
[2017-12-05] MEDS: DOCUSATE SODIUM 100 MG CAPSULE PO SCH ×2 (08:08→16:44)
[2017-12-05] MEDS: ZINC SULFATE 220 MG CAPSULE PO SCH (08:09)
[2017-12-05] MEDS: ASCORBIC ACID 500 MG TABLET PO SCH (08:10)
[2017-12-05] MEDS: NYSTATIN 15 GM POWDER BOTTLE TP SCH ×2 (08:10→16:44)
[2017-12-05] MEDS: RisperiDONE CONC 3 MG/3 ML SOLUTION ORAL.SYG PO SCH ×2 (08:11→16:44)
[2017-12-05 08:12] VITALS: BP 120/80
[2017-12-05] MEDS: LORazepam 1 MG TABLET PO PRN ×2 (14:52→20:27)
[2017-12-05 16:00] VITALS: BP 108/61
[2017-12-05] MEDS: TraZODone HCL 100 MG TABLET PO SCH (20:26)
[2017-12-06] MEDS: LEVOTHYROXINE SODIUM 75 MCG TABLET PO SCH (05:53)
[2017-12-06] MEDS: PANTOPRAZOLE SODIUM 40 MG DR TABLET PO SCH (05:53)
[2017-12-06 07:04] VITALS: BP 100/60
[2017-12-06] MEDS: RisperiDONE CONC 3 MG/3 ML SOLUTION ORAL.SYG PO SCH ×2 (08:45→16:13)
[2017-12-06] MEDS: ZINC SULFATE 220 MG CAPSULE PO SCH (08:46)
[2017-12-06] MEDS: ASCORBIC ACID 500 MG TABLET PO SCH (08:46)
[2017-12-06] MEDS: MULTIVITAMINS WITH MINERALS, THERAPEUTIC TABLET PO SCH (08:46)
[2017-12-06] MEDS: VALPROIC ACID 250 MG/5 ML SYRUP UDCUP PO SCH ×2 (08:47→16:13)
[2017-12-06] MEDS: DOCUSATE SODIUM 100 MG CAPSULE PO SCH ×2 (08:47→16:13)
[2017-12-06] MEDS: BENZTROPINE MESYLATE 2 MG TABLET PO SCH ×2 (09:11→16:13)
[2017-12-06] MEDS: NYSTATIN 15 GM POWDER BOTTLE TP SCH ×2 (09:11→16:12)
[2017-12-06 16:02] VITALS: BP 135/80
[2017-12-06] MEDS: TraZODone HCL 100 MG TABLET PO SCH (20:10)
[2017-12-07] MEDS: HALOPERIDOL 5 MG TABLET PO PRN (00:37)
[2017-12-07 00:40] VITALS: BP 129/83
[2017-12-07] MEDS: LEVOTHYROXINE SODIUM 75 MCG TABLET PO SCH (06:45)
[2017-12-07] MEDS: PANTOPRAZOLE SODIUM 40 MG DR TABLET PO SCH (06:45)
[2017-12-07 08:06] VITALS: BP 118/65
[2017-12-07] MEDS: DOCUSATE SODIUM 100 MG CAPSULE PO SCH ×2 (10:02→16:16)
[2017-12-07] MEDS: VALPROIC ACID 250 MG/5 ML SYRUP UDCUP PO SCH ×2 (10:02→16:16)
[2017-12-07] MEDS: NYSTATIN 15 GM POWDER BOTTLE TP SCH ×2 (10:02→16:16)
[2017-12-07] MEDS: ZINC SULFATE 220 MG CAPSULE PO SCH (10:02)
[2017-12-07] MEDS: BENZTROPINE MESYLATE 2 MG TABLET PO SCH ×2 (10:02→16:16)
[2017-12-07] MEDS: ASCORBIC ACID 500 MG TABLET PO SCH (10:02)
[2017-12-07] MEDS: MULTIVITAMINS WITH MINERALS, THERAPEUTIC TABLET PO SCH (10:02)
[2017-12-07] MEDS: RisperiDONE CONC 3 MG/3 ML SOLUTION ORAL.SYG PO SCH ×2 (10:02→16:16)
[2017-12-07] MEDS: LORazepam 0.5 MG TABLET PO PRN (13:32)
[2017-12-07 16:30] VITALS: BP 115/64
[2017-12-07] MEDS: TraZODone HCL 100 MG TABLET PO SCH (20:25)
[2017-12-08 02:04] VITALS: BP 115/70
[2017-12-08] MEDS: PANTOPRAZOLE SODIUM 40 MG DR TABLET PO SCH (06:26)
[2017-12-08] MEDS: LEVOTHYROXINE SODIUM 75 MCG TABLET PO SCH (06:26)
[2017-12-08 08:21] VITALS: BP 93/56
[2017-12-08] MEDS: VALPROIC ACID 250 MG/5 ML SYRUP UDCUP PO SCH ×2 (08:47→16:44)
[2017-12-08] MEDS: DOCUSATE SODIUM 100 MG CAPSULE PO SCH ×2 (08:47→16:44)
[2017-12-08] MEDS: ZINC SULFATE 220 MG CAPSULE PO SCH (08:48)
[2017-12-08] MEDS: MULTIVITAMINS WITH MINERALS, THERAPEUTIC TABLET PO SCH (08:48)
[2017-12-08] MEDS: BENZTROPINE MESYLATE 2 MG TABLET PO SCH ×2 (08:48→16:43)
[2017-12-08] MEDS: RisperiDONE CONC 3 MG/3 ML SOLUTION ORAL.SYG PO SCH ×2 (08:49→16:44)
[2017-12-08] MEDS: ASCORBIC ACID 500 MG TABLET PO SCH (08:50)
[2017-12-08] MEDS: NYSTATIN 15 GM POWDER BOTTLE TP SCH ×2 (08:50→16:45)
[2017-12-08 16:20] VITALS: BP 137/72
[2017-12-08] MEDS: LORazepam 0.5 MG TABLET PO PRN (16:44)
[2017-12-08] MEDS: TraZODone HCL 100 MG TABLET PO SCH (20:29)
[2017-12-08] MEDS: ZOLPIDEM TARTRATE 10 MG TABLET PO PRN (20:45)
[2017-12-09 00:20] VITALS: BP 123/70
[2017-12-09] MEDS: LORazepam 0.5 MG TABLET PO PRN ×2 (00:22→13:06)
[2017-12-09] MEDS: HALOPERIDOL 5 MG TABLET PO PRN ×2 (00:23→17:42)
[2017-12-09] MEDS: PANTOPRAZOLE SODIUM 40 MG DR TABLET PO SCH (06:34)
[2017-12-09] MEDS: LEVOTHYROXINE SODIUM 75 MCG TABLET PO SCH (06:34)
[2017-12-09 08:41] VITALS: BP 104/66
[2017-12-09] MEDS: VALPROIC ACID 250 MG/5 ML SYRUP UDCUP PO SCH ×2 (09:18→17:09)
[2017-12-09] MEDS: RisperiDONE CONC 3 MG/3 ML SOLUTION ORAL.SYG PO SCH ×2 (09:18→17:09)
[2017-12-09] MEDS: DOCUSATE SODIUM 100 MG CAPSULE PO SCH ×2 (09:19→17:09)
[2017-12-09] MEDS: ASCORBIC ACID 500 MG TABLET PO SCH (09:19)
[2017-12-09] MEDS: MULTIVITAMINS WITH MINERALS, THERAPEUTIC TABLET PO SCH (09:19)
[2017-12-09] MEDS: ZINC SULFATE 220 MG CAPSULE PO SCH (09:19)
[2017-12-09] MEDS: NYSTATIN 15 GM POWDER BOTTLE TP SCH ×2 (09:20→17:09)
[2017-12-09] MEDS: BENZTROPINE MESYLATE 2 MG TABLET PO SCH ×2 (09:41→17:09)
[2017-12-09 16:12] VITALS: BP 120/87
[2017-12-09] MEDS: TraZODone HCL 100 MG TABLET PO SCH (20:07)
[2017-12-10] MEDS: PANTOPRAZOLE SODIUM 40 MG DR TABLET PO SCH (06:29)
[2017-12-10] MEDS: LEVOTHYROXINE SODIUM 75 MCG TABLET PO SCH (06:30)
[2017-12-10 06:48] VITALS: BP 100/62
[2017-12-10 08:08] VITALS: BP 111/47
[2017-12-10] MEDS: VALPROIC ACID 250 MG/5 ML SYRUP UDCUP PO SCH ×2 (08:41→16:21)
[2017-12-10] MEDS: DOCUSATE SODIUM 100 MG CAPSULE PO SCH ×2 (08:42→16:21)
[2017-12-10] MEDS: RisperiDONE CONC 3 MG/3 ML SOLUTION ORAL.SYG PO SCH ×2 (08:42→16:20)
[2017-12-10] MEDS: BENZTROPINE MESYLATE 2 MG TABLET PO SCH ×2 (08:42→16:36)
[2017-12-10] MEDS: MULTIVITAMINS WITH MINERALS, THERAPEUTIC TABLET PO SCH (08:42)
[2017-12-10] MEDS: ZINC SULFATE 220 MG CAPSULE PO SCH (08:45)
[2017-12-10] MEDS: ASCORBIC ACID 500 MG TABLET PO SCH (08:46)
[2017-12-10] MEDS: NYSTATIN 15 GM POWDER BOTTLE TP SCH ×2 (08:55→16:36)
[2017-12-10 16:00] VITALS: BP 123/75
[2017-12-10] MEDS: HALOPERIDOL 5 MG TABLET PO PRN (16:21)
[2017-12-10] MEDS: TraZODone HCL 100 MG TABLET PO SCH (20:48)
[2017-12-11 05:14] VITALS: BP 100/60
[2017-12-11] MEDS: LEVOTHYROXINE SODIUM 75 MCG TABLET PO SCH (06:01)
[2017-12-11] MEDS: PANTOPRAZOLE SODIUM 40 MG DR TABLET PO SCH (06:01)
[2017-12-11 08:12] VITALS: BP 103/69
[2017-12-11] MEDS: DOCUSATE SODIUM 100 MG CAPSULE PO SCH ×2 (08:53→16:10)
[2017-12-11] MEDS: BENZTROPINE MESYLATE 2 MG TABLET PO SCH ×2 (08:53→16:10)
[2017-12-11] MEDS: VALPROIC ACID 250 MG/5 ML SYRUP UDCUP PO SCH ×2 (08:53→16:10)
[2017-12-11] MEDS: MULTIVITAMINS WITH MINERALS, THERAPEUTIC TABLET PO SCH (08:53)
[2017-12-11] MEDS: ZINC SULFATE 220 MG CAPSULE PO SCH (08:54)
[2017-12-11] MEDS: RisperiDONE CONC 3 MG/3 ML SOLUTION ORAL.SYG PO SCH ×2 (08:54→16:10)
[2017-12-11] MEDS: NYSTATIN 15 GM POWDER BOTTLE TP SCH ×2 (08:55→16:10)
[2017-12-11] MEDS: ASCORBIC ACID 500 MG TABLET PO SCH (08:55)
[2017-12-11] MEDS: HALOPERIDOL 5 MG TABLET PO PRN (16:12)
[2017-12-11 16:16] VITALS: BP 120/78
[2017-12-11] MEDS: TraZODone HCL 100 MG TABLET PO SCH (20:37)
[2017-12-12] MEDS: LEVOTHYROXINE SODIUM 75 MCG TABLET PO SCH (06:27)
[2017-12-12] MEDS: PANTOPRAZOLE SODIUM 40 MG DR TABLET PO SCH (06:27)
[2017-12-12 06:52] VITALS: BP 118/64
[2017-12-12 08:00] VITALS: BP 106/53
[2017-12-12] MEDS: DOCUSATE SODIUM 100 MG CAPSULE PO SCH ×2 (08:34→16:05)
[2017-12-12] MEDS: VALPROIC ACID 250 MG/5 ML SYRUP UDCUP PO SCH ×2 (08:35→16:02)
[2017-12-12] MEDS: ZINC SULFATE 220 MG CAPSULE PO SCH (08:35)
[2017-12-12] MEDS: BENZTROPINE MESYLATE 2 MG TABLET PO SCH ×2 (08:35→16:05)
[2017-12-12] MEDS: ASCORBIC ACID 500 MG TABLET PO SCH (08:35)
[2017-12-12] MEDS: RisperiDONE CONC 3 MG/3 ML SOLUTION ORAL.SYG PO SCH ×2 (08:36→17:07)
[2017-12-12] MEDS: MULTIVITAMINS WITH MINERALS, THERAPEUTIC TABLET PO SCH (08:40)
[2017-12-12] MEDS: NYSTATIN 15 GM POWDER BOTTLE TP SCH ×2 (08:41→16:05)
[2017-12-12 16:04] VITALS: BP 109/63
[2017-12-12] MEDS: HALOPERIDOL 5 MG TABLET PO PRN (16:05)
[2017-12-12] MEDS: TraZODone HCL 100 MG TABLET PO SCH (20:37)
[2017-12-13 05:30] VITALS: BP 121/61
[2017-12-13] MEDS: LEVOTHYROXINE SODIUM 75 MCG TABLET PO SCH (06:27)
[2017-12-13] MEDS: PANTOPRAZOLE SODIUM 40 MG DR TABLET PO SCH (06:27)
[2017-12-13 08:05] VITALS: BP 113/50
[2017-12-13] MEDS: DOCUSATE SODIUM 100 MG CAPSULE PO SCH ×2 (08:58→16:52)
[2017-12-13] MEDS: BENZTROPINE MESYLATE 2 MG TABLET PO SCH ×2 (08:58→16:52)
[2017-12-13] MEDS: MULTIVITAMINS WITH MINERALS, THERAPEUTIC TABLET PO SCH (08:58)
[2017-12-13] MEDS: VALPROIC ACID 250 MG/5 ML SYRUP UDCUP PO SCH ×2 (08:59→16:53)
[2017-12-13] MEDS: RisperiDONE CONC 3 MG/3 ML SOLUTION ORAL.SYG PO SCH ×2 (09:00→16:53)
[2017-12-13] MEDS: ASCORBIC ACID 500 MG TABLET PO SCH (09:00)
[2017-12-13] MEDS: ZINC SULFATE 220 MG CAPSULE PO SCH (09:01)
[2017-12-13] MEDS: NYSTATIN 15 GM POWDER BOTTLE TP SCH ×2 (09:01→16:53)
[2017-12-13 16:05] VITALS: BP 139/66
[2017-12-13] MEDS: TraZODone HCL 100 MG TABLET PO SCH (20:38)
[2017-12-14] MEDS: LEVOTHYROXINE SODIUM 75 MCG TABLET PO SCH (06:34)
[2017-12-14] MEDS: PANTOPRAZOLE SODIUM 40 MG DR TABLET PO SCH (06:35)
[2017-12-14] MEDS: ASCORBIC ACID 500 MG TABLET PO SCH (08:57)
[2017-12-14] MEDS: ZINC SULFATE 220 MG CAPSULE PO SCH (08:57)
[2017-12-14] MEDS: VALPROIC ACID 250 MG/5 ML SYRUP UDCUP PO SCH ×2 (08:57→16:53)
[2017-12-14] MEDS: BENZTROPINE MESYLATE 2 MG TABLET PO SCH ×2 (08:58→16:53)
[2017-12-14] MEDS: DOCUSATE SODIUM 100 MG CAPSULE PO SCH ×2 (08:58→16:53)
[2017-12-14] MEDS: RisperiDONE CONC 3 MG/3 ML SOLUTION ORAL.SYG PO SCH ×2 (08:58→16:53)
[2017-12-14] MEDS: MULTIVITAMINS WITH MINERALS, THERAPEUTIC TABLET PO SCH (08:58)
[2017-12-14 09:02] VITALS: BP 109/82
[2017-12-14] MEDS: NYSTATIN 15 GM POWDER BOTTLE TP SCH ×2 (09:09→16:54)
[2017-12-14] MEDS: TraZODone HCL 100 MG TABLET PO SCH (20:00)
[2017-12-15] MEDS: LEVOTHYROXINE SODIUM 75 MCG TABLET PO SCH (06:37)
[2017-12-15] MEDS: PANTOPRAZOLE SODIUM 40 MG DR TABLET PO SCH (06:37)
[2017-12-15] MEDS: VALPROIC ACID 250 MG/5 ML SYRUP UDCUP PO SCH ×2 (08:20→17:36)
[2017-12-15] MEDS: RisperiDONE CONC 3 MG/3 ML SOLUTION ORAL.SYG PO SCH ×2 (08:20→17:37)
[2017-12-15] MEDS: MULTIVITAMINS WITH MINERALS, THERAPEUTIC TABLET PO SCH (08:22)
[2017-12-15] MEDS: ZINC SULFATE 220 MG CAPSULE PO SCH (08:22)
[2017-12-15] MEDS: ASCORBIC ACID 500 MG TABLET PO SCH (08:22)
[2017-12-15] MEDS: DOCUSATE SODIUM 100 MG CAPSULE PO SCH ×2 (08:22→17:36)
[2017-12-15] MEDS: BENZTROPINE MESYLATE 2 MG TABLET PO SCH ×2 (08:22→17:37)
[2017-12-15] MEDS: NYSTATIN 15 GM POWDER BOTTLE TP SCH ×2 (08:23→17:37)
[2017-12-15 08:34] VITALS: BP 110/56
[2017-12-15 16:04] VITALS: BP 110/65
[2017-12-15] MEDS: TraZODone HCL 100 MG TABLET PO SCH (22:25)
[2017-12-15] MEDS: HALOPERIDOL 5 MG TABLET PO PRN (22:38)
[2017-12-16] MEDS: PANTOPRAZOLE SODIUM 40 MG DR TABLET PO SCH (06:14)
[2017-12-16] MEDS: LEVOTHYROXINE SODIUM 75 MCG TABLET PO SCH (06:14)
[2017-12-16 08:22] VITALS: BP 117/71
[2017-12-16] MEDS: VALPROIC ACID 250 MG/5 ML SYRUP UDCUP PO SCH ×2 (08:34→17:00)
[2017-12-16] MEDS: BENZTROPINE MESYLATE 2 MG TABLET PO SCH ×2 (08:34→17:00)
[2017-12-16] MEDS: MULTIVITAMINS WITH MINERALS, THERAPEUTIC TABLET PO SCH (08:35)
[2017-12-16] MEDS: RisperiDONE CONC 3 MG/3 ML SOLUTION ORAL.SYG PO SCH ×2 (08:35→17:00)
[2017-12-16] MEDS: ASCORBIC ACID 500 MG TABLET PO SCH (08:35)
[2017-12-16] MEDS: ZINC SULFATE 220 MG CAPSULE PO SCH (08:35)
[2017-12-16] MEDS: DOCUSATE SODIUM 100 MG CAPSULE PO SCH ×2 (08:35→17:00)
[2017-12-16] MEDS: NYSTATIN 15 GM POWDER BOTTLE TP SCH ×2 (08:36→17:00)
[2017-12-16 16:15] VITALS: BP 101/62
[2017-12-16] MEDS: HALOPERIDOL LACTATE 5 MG/ML VIAL IM PRN (17:16)
[2017-12-16] MEDS: TraZODone HCL 100 MG TABLET PO SCH (20:47)
[2017-12-17] MEDS: LEVOTHYROXINE SODIUM 75 MCG TABLET PO SCH (06:30)
[2017-12-17] MEDS: PANTOPRAZOLE SODIUM 40 MG DR TABLET PO SCH (06:30)
[2017-12-17] MEDS: MULTIVITAMINS WITH MINERALS, THERAPEUTIC TABLET PO SCH (09:06)
[2017-12-17] MEDS: BENZTROPINE MESYLATE 2 MG TABLET PO SCH ×2 (09:06→16:27)
[2017-12-17] MEDS: DOCUSATE SODIUM 100 MG CAPSULE PO SCH ×2 (09:06→16:27)
[2017-12-17] MEDS: ASCORBIC ACID 500 MG TABLET PO SCH (09:07)
[2017-12-17] MEDS: RisperiDONE CONC 3 MG/3 ML SOLUTION ORAL.SYG PO SCH ×2 (09:08→16:26)
[2017-12-17] MEDS: VALPROIC ACID 250 MG/5 ML SYRUP UDCUP PO SCH ×2 (09:08→16:27)
[2017-12-17] MEDS: NYSTATIN 15 GM POWDER BOTTLE TP SCH ×2 (09:08→16:27)
[2017-12-17 16:10] VITALS: BP 112/69
[2017-12-17] MEDS: TraZODone HCL 100 MG TABLET PO SCH (20:22)
[2017-12-18] MEDS: PANTOPRAZOLE SODIUM 40 MG DR TABLET PO SCH (06:18)
[2017-12-18] MEDS: LEVOTHYROXINE SODIUM 75 MCG TABLET PO SCH (06:18)
[2017-12-18 08:06] VITALS: BP 140/60
[2017-12-18] MEDS: NYSTATIN 15 GM POWDER BOTTLE TP SCH ×2 (08:51→16:10)
[2017-12-18] MEDS: BENZTROPINE MESYLATE 2 MG TABLET PO SCH ×2 (09:00→16:11)
[2017-12-18] MEDS: MULTIVITAMINS WITH MINERALS, THERAPEUTIC TABLET PO SCH (09:00)
[2017-12-18] MEDS: ASCORBIC ACID 500 MG TABLET PO SCH (09:00)
[2017-12-18] MEDS: DOCUSATE SODIUM 100 MG CAPSULE PO SCH ×2 (09:00→16:11)
[2017-12-18] MEDS: VALPROIC ACID 250 MG/5 ML SYRUP UDCUP PO SCH ×2 (09:00→16:10)
[2017-12-18] MEDS: RisperiDONE CONC 3 MG/3 ML SOLUTION ORAL.SYG PO SCH ×2 (09:00→16:11)
[2017-12-18] MEDS: HALOPERIDOL LACTATE 5 MG/ML VIAL IM PRN (09:39)
[2017-12-18 16:02] VITALS: BP 112/61
[2017-12-18] MEDS: TraZODone HCL 100 MG TABLET PO SCH (20:09)
[2017-12-19] MEDS: PANTOPRAZOLE SODIUM 40 MG DR TABLET PO SCH (06:08)
[2017-12-19] MEDS: LEVOTHYROXINE SODIUM 75 MCG TABLET PO SCH (06:08)
[2017-12-19] MEDS: RisperiDONE CONC 3 MG/3 ML SOLUTION ORAL.SYG PO SCH ×2 (08:15→16:04)
[2017-12-19] MEDS: BENZTROPINE MESYLATE 2 MG TABLET PO SCH ×2 (08:16→16:08)
[2017-12-19] MEDS: VALPROIC ACID 250 MG/5 ML SYRUP UDCUP PO SCH ×2 (08:16→16:04)
[2017-12-19] MEDS: MULTIVITAMINS WITH MINERALS, THERAPEUTIC TABLET PO SCH (08:16)
[2017-12-19] MEDS: ASCORBIC ACID 500 MG TABLET PO SCH (08:16)
[2017-12-19] MEDS: DOCUSATE SODIUM 100 MG CAPSULE PO SCH ×2 (08:16→16:04)
[2017-12-19] MEDS: NYSTATIN 15 GM POWDER BOTTLE TP SCH ×2 (08:17→16:09)
[2017-12-19 08:53] VITALS: BP 106/63
[2017-12-19 16:15] VITALS: BP 122/77
[2017-12-19] MEDS: TraMADol HCL 50 MG TABLET PO PRN (16:15)
[2017-12-19 16:26] VITALS: BP 122/77
[2017-12-19] MEDS: TraZODone HCL 100 MG TABLET PO SCH (20:06)
[2017-12-20] MEDS: PANTOPRAZOLE SODIUM 40 MG DR TABLET PO SCH (06:40)
[2017-12-20] MEDS: LEVOTHYROXINE SODIUM 75 MCG TABLET PO SCH (06:40)
[2017-12-20 08:26] VITALS: BP 117/66
[2017-12-20] MEDS: DOCUSATE SODIUM 100 MG CAPSULE PO SCH ×2 (09:28→16:07)
[2017-12-20] MEDS: VALPROIC ACID 250 MG/5 ML SYRUP UDCUP PO SCH ×2 (09:28→16:06)
[2017-12-20] MEDS: BENZTROPINE MESYLATE 2 MG TABLET PO SCH ×2 (09:28→16:05)
[2017-12-20] MEDS: RisperiDONE CONC 3 MG/3 ML SOLUTION ORAL.SYG PO SCH ×2 (09:28→16:07)
[2017-12-20] MEDS: ASCORBIC ACID 500 MG TABLET PO SCH (09:29)
[2017-12-20] MEDS: MULTIVITAMINS WITH MINERALS, THERAPEUTIC TABLET PO SCH (09:30)
[2017-12-20] MEDS: NYSTATIN 15 GM POWDER BOTTLE TP SCH ×2 (09:31→16:08)
[2017-12-20] MEDS: TraMADol HCL 50 MG TABLET PO PRN (12:45)
[2017-12-20 16:21] VITALS: BP 137/75
[2017-12-20] MEDS: LORazepam 0.5 MG TABLET PO PRN (18:59)
[2017-12-20] MEDS: TraZODone HCL 100 MG TABLET PO SCH (20:32)
[2017-12-21 06:28] VITALS: BP 101/61
[2017-12-21] MEDS: PANTOPRAZOLE SODIUM 40 MG DR TABLET PO SCH (06:35)
[2017-12-21] MEDS: LEVOTHYROXINE SODIUM 75 MCG TABLET PO SCH (06:35)
[2017-12-21 08:08] VITALS: BP 100/61
[2017-12-21 08:36] LABS: ANION GAP 4 mmol/L (8-16); CALCIUM, TOTAL 8.5 mg/dL (8.8-10.5); CARBON DIOXIDE 33 mmol/L (22-29); CHLORIDE 105 mmol/L (98-107); CHOLESTEROL 106 mg/dL (131-200); CREATININE 0.86 mg/dL (0.60-1.30); GLOMERULAR FILTR. RATE CALC > 60 mL/min (>60); GLUCOSE,RANDOM 78 mg/dL (70-110); HDL CHOLESTEROL 54 mg/dL (40-60); LDL CHOL (CALC.) 36 mg/dL (0-130); POTASSIUM 3.6 mmol/L (3.5-5.1); SODIUM SERUM 142 mmol/L (136-145); TRIGLYCERIDES 81 mg/dL (15-150); UREA NITROGEN, BLOOD 15 mg/dL (7-18)
[2017-12-21] MEDS: RisperiDONE CONC 3 MG/3 ML SOLUTION ORAL.SYG PO SCH ×2 (09:03→17:03)
[2017-12-21] MEDS: BENZTROPINE MESYLATE 2 MG TABLET PO SCH ×2 (09:03→17:04)
[2017-12-21] MEDS: DOCUSATE SODIUM 100 MG CAPSULE PO SCH ×2 (09:03→17:04)
[2017-12-21] MEDS: ASCORBIC ACID 500 MG TABLET PO SCH (09:03)
[2017-12-21] MEDS: MULTIVITAMINS WITH MINERALS, THERAPEUTIC TABLET PO SCH (09:03)
[2017-12-21] MEDS: VALPROIC ACID 250 MG/5 ML SYRUP UDCUP PO SCH ×2 (09:03→17:03)
[2017-12-21] MEDS: NYSTATIN 15 GM POWDER BOTTLE TP SCH ×2 (09:04→17:04)
[2017-12-21 16:07] VITALS: BP 109/64
[2017-12-21] MEDS: LORazepam 0.5 MG TABLET PO PRN (17:04)
[2017-12-21] MEDS: TraZODone HCL 100 MG TABLET PO SCH (20:51)
[2017-12-21] MEDS: HALOPERIDOL 5 MG TABLET PO PRN (20:51)
[2017-12-22] MEDS: PANTOPRAZOLE SODIUM 40 MG DR TABLET PO SCH (06:48)
[2017-12-22] MEDS: LEVOTHYROXINE SODIUM 75 MCG TABLET PO SCH (06:48)
[2017-12-22] MEDS: VALPROIC ACID 250 MG/5 ML SYRUP UDCUP PO SCH ×2 (09:00→16:07)
[2017-12-22] MEDS: RisperiDONE CONC 3 MG/3 ML SOLUTION ORAL.SYG PO SCH ×2 (09:00→16:06)
[2017-12-22] MEDS: NYSTATIN 15 GM POWDER BOTTLE TP SCH ×2 (09:00→16:07)
[2017-12-22] MEDS: DOCUSATE SODIUM 100 MG CAPSULE PO SCH ×2 (09:00→16:06)
[2017-12-22] MEDS: BENZTROPINE MESYLATE 2 MG TABLET PO SCH ×2 (09:00→16:06)
[2017-12-22] MEDS: ASCORBIC ACID 500 MG TABLET PO SCH (09:00)
[2017-12-22] MEDS: MULTIVITAMINS WITH MINERALS, THERAPEUTIC TABLET PO SCH (09:00)
[2017-12-22] MEDS: HALOPERIDOL LACTATE 5 MG/ML VIAL IM PRN (10:17)
[2017-12-22 16:00] VITALS: BP 112/66
[2017-12-22] MEDS: TraMADol HCL 50 MG TABLET PO PRN (16:06)
[2017-12-22 16:19] VITALS: BP 113/71
[2017-12-22 17:06] VITALS: BP 111/74
[2017-12-22] MEDS: TraZODone HCL 100 MG TABLET PO SCH (20:29)
[2017-12-22] MEDS: LORazepam 0.5 MG TABLET PO PRN (21:58)
[2017-12-23] MEDS: PANTOPRAZOLE SODIUM 40 MG DR TABLET PO SCH (06:50)
[2017-12-23] MEDS: LEVOTHYROXINE SODIUM 75 MCG TABLET PO SCH (06:50)
[2017-12-23 08:00] VITALS: BP 108/68
[2017-12-23] MEDS: VALPROIC ACID 250 MG/5 ML SYRUP UDCUP PO SCH ×2 (09:00→17:18)
[2017-12-23] MEDS: BENZTROPINE MESYLATE 2 MG TABLET PO SCH ×2 (09:00→17:18)
[2017-12-23] MEDS: RisperiDONE CONC 3 MG/3 ML SOLUTION ORAL.SYG PO SCH ×2 (09:00→17:18)
[2017-12-23] MEDS: DOCUSATE SODIUM 100 MG CAPSULE PO SCH ×2 (09:00→17:18)
[2017-12-23] MEDS: MULTIVITAMINS WITH MINERALS, THERAPEUTIC TABLET PO SCH (09:00)
[2017-12-23] MEDS: NYSTATIN 15 GM POWDER BOTTLE TP SCH ×2 (09:00→17:18)
[2017-12-23] MEDS: ASCORBIC ACID 500 MG TABLET PO SCH (09:17)
[2017-12-23] MEDS: HALOPERIDOL LACTATE 5 MG/ML VIAL IM PRN (09:52)
[2017-12-23] MEDS: TraMADol HCL 50 MG TABLET PO PRN (13:11)
[2017-12-23 16:24] VITALS: BP 128/73
[2017-12-23] MEDS: LORazepam 0.5 MG TABLET PO PRN (17:19)
[2017-12-23] MEDS: HALOPERIDOL 5 MG TABLET PO PRN (20:38)
[2017-12-23] MEDS: TraZODone HCL 100 MG TABLET PO SCH (20:38)
[2017-12-24] MEDS: LEVOTHYROXINE SODIUM 75 MCG TABLET PO SCH (06:57)
[2017-12-24] MEDS: PANTOPRAZOLE SODIUM 40 MG DR TABLET PO SCH (06:57)
[2017-12-24] MEDS: MEGESTROL ACETATE 400 MG/10 ML SUSPENSION UDCUP PO SCH ×2 (09:55→16:46)
[2017-12-24] MEDS: RisperiDONE CONC 3 MG/3 ML SOLUTION ORAL.SYG PO SCH ×2 (09:55→16:45)
[2017-12-24] MEDS: VALPROIC ACID 250 MG/5 ML SYRUP UDCUP PO SCH ×2 (09:55→16:45)
[2017-12-24] MEDS: MULTIVITAMINS WITH MINERALS, THERAPEUTIC TABLET PO SCH (09:57)
[2017-12-24] MEDS: BENZTROPINE MESYLATE 2 MG TABLET PO SCH ×2 (09:57→16:45)
[2017-12-24] MEDS: DOCUSATE SODIUM 100 MG CAPSULE PO SCH ×2 (09:57→16:45)
[2017-12-24] MEDS: ASCORBIC ACID 500 MG TABLET PO SCH (09:58)
[2017-12-24] MEDS: NYSTATIN 15 GM POWDER BOTTLE TP SCH ×2 (09:58→16:57)
[2017-12-24] MEDS: TraMADol HCL 50 MG TABLET PO PRN (10:17)
[2017-12-24 16:00] VITALS: BP 117/67
[2017-12-24] MEDS: TraZODone HCL 100 MG TABLET PO SCH (20:11)
[2017-12-25 05:50] VITALS: BP 105/65
[2017-12-25] MEDS: LEVOTHYROXINE SODIUM 75 MCG TABLET PO SCH (06:16)
[2017-12-25] MEDS: PANTOPRAZOLE SODIUM 40 MG DR TABLET PO SCH (06:16)
[2017-12-25] MEDS: VALPROIC ACID 250 MG/5 ML SYRUP UDCUP PO SCH ×2 (09:09→17:02)
[2017-12-25] MEDS: RisperiDONE CONC 3 MG/3 ML SOLUTION ORAL.SYG PO SCH ×2 (09:10→17:02)
[2017-12-25] MEDS: BENZTROPINE MESYLATE 2 MG TABLET PO SCH ×2 (09:12→17:01)
[2017-12-25] MEDS: MULTIVITAMINS WITH MINERALS, THERAPEUTIC TABLET PO SCH (09:12)
[2017-12-25] MEDS: MEGESTROL ACETATE 400 MG/10 ML SUSPENSION UDCUP PO SCH ×2 (09:12→17:02)
[2017-12-25] MEDS: DOCUSATE SODIUM 100 MG CAPSULE PO SCH ×2 (09:12→17:02)
[2017-12-25] MEDS: NYSTATIN 15 GM POWDER BOTTLE TP SCH ×2 (09:14→17:02)
[2017-12-25] MEDS: ASCORBIC ACID 500 MG TABLET PO SCH (09:14)
[2017-12-25 16:25] VITALS: BP 110/70
[2017-12-25] MEDS: HALOPERIDOL 5 MG TABLET PO PRN (17:02)
[2017-12-25] MEDS: TraZODone HCL 100 MG TABLET PO SCH (20:30)
[2017-12-26] MEDS: PANTOPRAZOLE SODIUM 40 MG DR TABLET PO SCH (06:39)
[2017-12-26] MEDS: LEVOTHYROXINE SODIUM 75 MCG TABLET PO SCH (06:39)
[2017-12-26] MEDS: DOCUSATE SODIUM 100 MG CAPSULE PO SCH ×2 (09:00→16:11)
[2017-12-26] MEDS: BENZTROPINE MESYLATE 2 MG TABLET PO SCH ×2 (09:00→16:11)
[2017-12-26] MEDS: ASCORBIC ACID 500 MG TABLET PO SCH (09:00)
[2017-12-26] MEDS: MEGESTROL ACETATE 400 MG/10 ML SUSPENSION UDCUP PO SCH ×2 (09:00→16:10)
[2017-12-26] MEDS: RisperiDONE CONC 3 MG/3 ML SOLUTION ORAL.SYG PO SCH ×2 (09:00→16:10)
[2017-12-26] MEDS: MULTIVITAMINS WITH MINERALS, THERAPEUTIC TABLET PO SCH (09:00)
[2017-12-26] MEDS: NYSTATIN 15 GM POWDER BOTTLE TP SCH ×2 (09:00→16:10)
[2017-12-26] MEDS: VALPROIC ACID 250 MG/5 ML SYRUP UDCUP PO SCH ×2 (09:00→16:11)
[2017-12-26] MEDS: HALOPERIDOL LACTATE 5 MG/ML VIAL IM PRN (10:12)
[2017-12-26 16:00] VITALS: BP 117/63
[2017-12-26] MEDS: HALOPERIDOL 5 MG TABLET PO PRN (16:11)
[2017-12-26] MEDS: TraZODone HCL 100 MG TABLET PO SCH (20:19)
[2017-12-27] MEDS: LEVOTHYROXINE SODIUM 75 MCG TABLET PO SCH (06:37)
[2017-12-27] MEDS: PANTOPRAZOLE SODIUM 40 MG DR TABLET PO SCH (06:37)
[2017-12-27 08:07] VITALS: BP 100/63
[2017-12-27] MEDS: VALPROIC ACID 250 MG/5 ML SYRUP UDCUP PO SCH ×2 (09:00→16:36)
[2017-12-27] MEDS: MEGESTROL ACETATE 400 MG/10 ML SUSPENSION UDCUP PO SCH ×2 (09:00→16:37)
[2017-12-27] MEDS: BENZTROPINE MESYLATE 2 MG TABLET PO SCH ×2 (09:00→16:36)
[2017-12-27] MEDS: DOCUSATE SODIUM 100 MG CAPSULE PO SCH ×2 (09:00→16:36)
[2017-12-27] MEDS: MULTIVITAMINS WITH MINERALS, THERAPEUTIC TABLET PO SCH (09:00)
[2017-12-27] MEDS: RisperiDONE CONC 3 MG/3 ML SOLUTION ORAL.SYG PO SCH ×2 (09:00→16:38)
[2017-12-27] MEDS: NYSTATIN 15 GM POWDER BOTTLE TP SCH ×2 (09:00→16:39)
[2017-12-27] MEDS: ASCORBIC ACID 500 MG TABLET PO SCH (09:00)
[2017-12-27] MEDS: TraMADol HCL 50 MG TABLET PO PRN (14:46)
[2017-12-27 16:19] VITALS: BP 111/61
[2017-12-27] MEDS: TraZODone HCL 100 MG TABLET PO SCH (20:02)
[2017-12-28 06:10] VITALS: BP 116/64
[2017-12-28] MEDS: PANTOPRAZOLE SODIUM 40 MG DR TABLET PO SCH (06:46)
[2017-12-28] MEDS: LEVOTHYROXINE SODIUM 75 MCG TABLET PO SCH (06:46)
[2017-12-28 08:13] VITALS: BP 106/65
[2017-12-28] MEDS: DOCUSATE SODIUM 100 MG CAPSULE PO SCH ×2 (09:31→17:00)
[2017-12-28] MEDS: MULTIVITAMINS WITH MINERALS, THERAPEUTIC TABLET PO SCH (09:31)
[2017-12-28] MEDS: BENZTROPINE MESYLATE 2 MG TABLET PO SCH ×2 (09:31→17:00)
[2017-12-28] MEDS: VALPROIC ACID 250 MG/5 ML SYRUP UDCUP PO SCH ×2 (09:32→17:27)
[2017-12-28] MEDS: MEGESTROL ACETATE 400 MG/10 ML SUSPENSION UDCUP PO SCH ×2 (09:32→17:00)
[2017-12-28] MEDS: RisperiDONE CONC 3 MG/3 ML SOLUTION ORAL.SYG PO SCH ×2 (09:33→17:00)
[2017-12-28] MEDS: ASCORBIC ACID 500 MG TABLET PO SCH (09:34)
[2017-12-28] MEDS: NYSTATIN 15 GM POWDER BOTTLE TP SCH ×2 (09:34→17:00)
[2017-12-28 16:16] VITALS: BP 131/72
[2017-12-28] MEDS: HALOPERIDOL LACTATE 5 MG/ML VIAL IM PRN (17:44)
[2017-12-28] MEDS: TraZODone HCL 100 MG TABLET PO SCH (21:00)
[2017-12-28] MEDS: LORazepam 0.5 MG TABLET PO PRN (22:16)
[2017-12-29] MEDS: LEVOTHYROXINE SODIUM 75 MCG TABLET PO SCH (06:40)
[2017-12-29] MEDS: PANTOPRAZOLE SODIUM 40 MG DR TABLET PO SCH (06:40)
[2017-12-29 06:45] VITALS: BP 116/71
[2017-12-29 08:04] VITALS: BP 117/72
[2017-12-29] MEDS: VALPROIC ACID 250 MG/5 ML SYRUP UDCUP PO SCH ×3 (09:02→20:46)
[2017-12-29] MEDS: RisperiDONE CONC 3 MG/3 ML SOLUTION ORAL.SYG PO SCH ×2 (09:02→17:00)
[2017-12-29] MEDS: DOCUSATE SODIUM 100 MG CAPSULE PO SCH ×2 (09:05→17:00)
[2017-12-29] MEDS: ASCORBIC ACID 500 MG TABLET PO SCH (09:05)
[2017-12-29] MEDS: BENZTROPINE MESYLATE 2 MG TABLET PO SCH ×2 (09:05→17:00)
[2017-12-29] MEDS: MULTIVITAMINS WITH MINERALS, THERAPEUTIC TABLET PO SCH (09:05)
[2017-12-29] MEDS: MEGESTROL ACETATE 400 MG/10 ML SUSPENSION UDCUP PO SCH ×2 (09:05→17:27)
[2017-12-29] MEDS: NYSTATIN 15 GM POWDER BOTTLE TP SCH ×2 (09:06→17:27)
[2017-12-29 16:04] VITALS: BP 145/88
[2017-12-29] MEDS: HALOPERIDOL LACTATE 5 MG/ML VIAL IM PRN (18:04)
[2017-12-29 20:33] VITALS: BP 119/68
[2017-12-29] MEDS: TraZODone HCL 100 MG TABLET PO SCH (20:46)
[2017-12-29] MEDS: TraMADol HCL 50 MG TABLET PO PRN (20:47)
[2017-12-30] MEDS: LEVOTHYROXINE SODIUM 75 MCG TABLET PO SCH (06:30)
[2017-12-30] MEDS: PANTOPRAZOLE SODIUM 40 MG DR TABLET PO SCH (06:30)
[2017-12-30] MEDS: MEGESTROL ACETATE 400 MG/10 ML SUSPENSION UDCUP PO SCH ×2 (09:00→16:26)
[2017-12-30] MEDS: RisperiDONE CONC 3 MG/3 ML SOLUTION ORAL.SYG PO SCH ×2 (09:00→16:26)
[2017-12-30] MEDS: VALPROIC ACID 250 MG/5 ML SYRUP UDCUP PO SCH ×2 (09:01→16:26)
[2017-12-30] MEDS: ASCORBIC ACID 500 MG TABLET PO SCH (09:02)
[2017-12-30] MEDS: BENZTROPINE MESYLATE 2 MG TABLET PO SCH ×2 (09:02→16:26)
[2017-12-30] MEDS: DOCUSATE SODIUM 100 MG CAPSULE PO SCH ×2 (09:02→16:26)
[2017-12-30] MEDS: MULTIVITAMINS WITH MINERALS, THERAPEUTIC TABLET PO SCH (09:02)
[2017-12-30] MEDS: NYSTATIN 15 GM POWDER BOTTLE TP SCH ×2 (09:03→16:27)
[2017-12-30 16:16] VITALS: BP 116/68
[2017-12-30] MEDS: HALOPERIDOL 5 MG TABLET PO PRN (16:26)
[2017-12-30] MEDS: LORazepam 0.5 MG TABLET PO PRN ×2 (16:26→20:28)
[2017-12-30] MEDS: TraZODone HCL 100 MG TABLET PO SCH (20:28)
[2017-12-31] MEDS: LEVOTHYROXINE SODIUM 75 MCG TABLET PO SCH (06:30)
[2017-12-31] MEDS: PANTOPRAZOLE SODIUM 40 MG DR TABLET PO SCH (06:30)
[2017-12-31 08:41] VITALS: BP 119/73
[2017-12-31] MEDS: MEGESTROL ACETATE 400 MG/10 ML SUSPENSION UDCUP PO SCH ×2 (09:01→17:19)
[2017-12-31] MEDS: ASCORBIC ACID 500 MG TABLET PO SCH (09:01)
[2017-12-31] MEDS: NYSTATIN 15 GM POWDER BOTTLE TP SCH ×2 (09:01→17:19)
[2017-12-31] MEDS: RisperiDONE CONC 3 MG/3 ML SOLUTION ORAL.SYG PO SCH ×2 (09:01→17:19)
[2017-12-31] MEDS: DOCUSATE SODIUM 100 MG CAPSULE PO SCH ×2 (09:02→17:26)
[2017-12-31] MEDS: VALPROIC ACID 250 MG/5 ML SYRUP UDCUP PO SCH ×2 (09:02→17:19)
[2017-12-31] MEDS: BENZTROPINE MESYLATE 2 MG TABLET PO SCH ×2 (09:02→17:19)
[2017-12-31] MEDS: MULTIVITAMINS WITH MINERALS, THERAPEUTIC TABLET PO SCH (09:03)
[2017-12-31 16:10] VITALS: BP 105/61
[2017-12-31] MEDS: HALOPERIDOL 5 MG TABLET PO PRN (18:30)
[2017-12-31 19:00] VITALS: BP 125/68
[2017-12-31] MEDS: TraMADol HCL 50 MG TABLET PO PRN (19:04)
[2017-12-31] MEDS: TraZODone HCL 100 MG TABLET PO SCH (20:11)
[2018-01-01] MEDS: PANTOPRAZOLE SODIUM 40 MG DR TABLET PO SCH (06:25)
[2018-01-01] MEDS: LEVOTHYROXINE SODIUM 75 MCG TABLET PO SCH (06:25)
[2018-01-01] MEDS: MEGESTROL ACETATE 400 MG/10 ML SUSPENSION UDCUP PO SCH ×2 (08:50→16:27)
[2018-01-01] MEDS: RisperiDONE CONC 3 MG/3 ML SOLUTION ORAL.SYG PO SCH ×2 (08:50→16:27)
[2018-01-01] MEDS: MULTIVITAMINS WITH MINERALS, THERAPEUTIC TABLET PO SCH (08:51)
[2018-01-01] MEDS: VALPROIC ACID 250 MG/5 ML SYRUP UDCUP PO SCH ×2 (08:51→16:27)
[2018-01-01] MEDS: DOCUSATE SODIUM 100 MG CAPSULE PO SCH ×2 (08:51→16:27)
[2018-01-01] MEDS: BENZTROPINE MESYLATE 2 MG TABLET PO SCH ×2 (08:55→16:28)
[2018-01-01] MEDS: ASCORBIC ACID 500 MG TABLET PO SCH (08:56)
[2018-01-01] MEDS: NYSTATIN 15 GM POWDER BOTTLE TP SCH ×2 (08:56→16:27)
[2018-01-01] MEDS: LORazepam 0.5 MG TABLET PO PRN (14:48)
[2018-01-01 16:00] VITALS: BP 116/68
[2018-01-01] MEDS: HALOPERIDOL 5 MG TABLET PO PRN (16:27)
[2018-01-01] MEDS: TraMADol HCL 50 MG TABLET PO PRN (16:28)
[2018-01-01] MEDS: TraZODone HCL 100 MG TABLET PO SCH (20:34)
[2018-01-02] MEDS: LEVOTHYROXINE SODIUM 75 MCG TABLET PO SCH (06:29)
[2018-01-02] MEDS: PANTOPRAZOLE SODIUM 40 MG DR TABLET PO SCH (06:29)
[2018-01-02 08:40] VITALS: BP 121/68
[2018-01-02] MEDS: MULTIVITAMINS WITH MINERALS, THERAPEUTIC TABLET PO SCH (09:00)
[2018-01-02] MEDS: NYSTATIN 15 GM POWDER BOTTLE TP SCH ×2 (09:00→16:08)
[2018-01-02] MEDS: RisperiDONE CONC 3 MG/3 ML SOLUTION ORAL.SYG PO SCH ×2 (09:00→16:07)
[2018-01-02] MEDS: BENZTROPINE MESYLATE 2 MG TABLET PO SCH ×2 (09:00→16:05)
[2018-01-02] MEDS: DOCUSATE SODIUM 100 MG CAPSULE PO SCH ×2 (09:00→16:05)
[2018-01-02] MEDS: MEGESTROL ACETATE 400 MG/10 ML SUSPENSION UDCUP PO SCH ×2 (09:00→16:07)
[2018-01-02] MEDS: ASCORBIC ACID 500 MG TABLET PO SCH (09:00)
[2018-01-02] MEDS: VALPROIC ACID 250 MG/5 ML SYRUP UDCUP PO SCH ×2 (09:00→16:06)
[2018-01-02] MEDS: HALOPERIDOL LACTATE 5 MG/ML VIAL IM PRN (09:54)
[2018-01-02] MEDS: LORazepam 0.5 MG TABLET PO PRN (16:05)
[2018-01-02 16:35] VITALS: BP 140/67
[2018-01-02] MEDS: TraZODone HCL 100 MG TABLET PO SCH (20:24)
[2018-01-02 21:00] VITALS: BP 128/70
[2018-01-02] MEDS: TraMADol HCL 50 MG TABLET PO PRN (21:08)
[2018-01-03 00:16] VITALS: BP 114/77
[2018-01-03] MEDS: LORazepam 0.5 MG TABLET PO PRN ×2 (00:28→16:19)
[2018-01-03] MEDS: LEVOTHYROXINE SODIUM 75 MCG TABLET PO SCH (07:04)
[2018-01-03] MEDS: PANTOPRAZOLE SODIUM 40 MG DR TABLET PO SCH (07:05)
[2018-01-03 08:21] VITALS: BP 93/50
[2018-01-03] MEDS: RisperiDONE CONC 3 MG/3 ML SOLUTION ORAL.SYG PO SCH ×2 (10:16→16:19)
[2018-01-03] MEDS: ASCORBIC ACID 500 MG TABLET PO SCH (10:16)
[2018-01-03] MEDS: DOCUSATE SODIUM 100 MG CAPSULE PO SCH ×2 (10:16→16:19)
[2018-01-03] MEDS: BENZTROPINE MESYLATE 2 MG TABLET PO SCH ×2 (10:17→16:19)
[2018-01-03] MEDS: MULTIVITAMINS WITH MINERALS, THERAPEUTIC TABLET PO SCH (10:17)
[2018-01-03] MEDS: MEGESTROL ACETATE 400 MG/10 ML SUSPENSION UDCUP PO SCH ×2 (10:17→16:19)
[2018-01-03] MEDS: VALPROIC ACID 250 MG/5 ML SYRUP UDCUP PO SCH ×2 (10:18→16:20)
[2018-01-03] MEDS: NYSTATIN 15 GM POWDER BOTTLE TP SCH ×2 (10:19→16:21)
[2018-01-03 20:16] VITALS: BP 115/70
[2018-01-03] MEDS: TraMADol HCL 50 MG TABLET PO PRN (20:16)
[2018-01-03] MEDS: TraZODone HCL 100 MG TABLET PO SCH (20:16)
[2018-01-04 00:21] VITALS: BP 115/67
[2018-01-04] MEDS: PANTOPRAZOLE SODIUM 40 MG DR TABLET PO SCH (06:30)
[2018-01-04] MEDS: LEVOTHYROXINE SODIUM 75 MCG TABLET PO SCH (06:30)
[2018-01-04] MEDS: MEGESTROL ACETATE 400 MG/10 ML SUSPENSION UDCUP PO SCH ×2 (09:42→16:04)
[2018-01-04] MEDS: RisperiDONE CONC 3 MG/3 ML SOLUTION ORAL.SYG PO SCH ×2 (09:42→16:04)
[2018-01-04] MEDS: MULTIVITAMINS WITH MINERALS, THERAPEUTIC TABLET PO SCH (09:42)
[2018-01-04] MEDS: NYSTATIN 15 GM POWDER BOTTLE TP SCH ×2 (09:42→16:04)
[2018-01-04] MEDS: DOCUSATE SODIUM 100 MG CAPSULE PO SCH ×2 (09:42→16:04)
[2018-01-04] MEDS: BENZTROPINE MESYLATE 2 MG TABLET PO SCH ×2 (09:42→16:04)
[2018-01-04] MEDS: ASCORBIC ACID 500 MG TABLET PO SCH (09:42)
[2018-01-04] MEDS: VALPROIC ACID 250 MG/5 ML SYRUP UDCUP PO SCH ×2 (09:42→16:04)
[2018-01-04 13:18] VITALS: BP 121/74
[2018-01-04 16:04] VITALS: BP 122/81
[2018-01-04] MEDS: TraZODone HCL 100 MG TABLET PO SCH (20:08)
[2018-01-05] MEDS: LEVOTHYROXINE SODIUM 75 MCG TABLET PO SCH (06:40)
[2018-01-05] MEDS: PANTOPRAZOLE SODIUM 40 MG DR TABLET PO SCH (06:40)
[2018-01-05 06:45] VITALS: BP 123/82
[2018-01-05 08:06] VITALS: BP 113/61
[2018-01-05] MEDS: MEGESTROL ACETATE 400 MG/10 ML SUSPENSION UDCUP PO SCH ×2 (08:46→16:13)
[2018-01-05] MEDS: MULTIVITAMINS WITH MINERALS, THERAPEUTIC TABLET PO SCH (08:46)
[2018-01-05] MEDS: VALPROIC ACID 250 MG/5 ML SYRUP UDCUP PO SCH ×2 (08:46→16:14)
[2018-01-05] MEDS: RisperiDONE CONC 3 MG/3 ML SOLUTION ORAL.SYG PO SCH ×2 (08:46→16:13)
[2018-01-05] MEDS: ASCORBIC ACID 500 MG TABLET PO SCH (08:47)
[2018-01-05] MEDS: BENZTROPINE MESYLATE 2 MG TABLET PO SCH ×2 (08:47→16:14)
[2018-01-05] MEDS: NYSTATIN 15 GM POWDER BOTTLE TP SCH ×2 (08:47→16:13)
[2018-01-05] MEDS: DOCUSATE SODIUM 100 MG CAPSULE PO SCH ×2 (08:47→16:14)
[2018-01-05] MEDS: HALOPERIDOL 5 MG TABLET PO PRN ×2 (13:33→17:53)
[2018-01-05 16:00] VITALS: BP 127/72
[2018-01-05] MEDS: TraMADol HCL 50 MG TABLET PO PRN (16:15)
[2018-01-05] MEDS: TraZODone HCL 100 MG TABLET PO SCH (20:31)
[2018-01-06 01:14] VITALS: BP 104/69
[2018-01-06] MEDS: LEVOTHYROXINE SODIUM 75 MCG TABLET PO SCH (06:52)
[2018-01-06] MEDS: PANTOPRAZOLE SODIUM 40 MG DR TABLET PO SCH (06:52)
[2018-01-06 08:49] VITALS: BP 106/64
[2018-01-06] MEDS: VALPROIC ACID 250 MG/5 ML SYRUP UDCUP PO SCH ×2 (09:15→16:01)
[2018-01-06] MEDS: BENZTROPINE MESYLATE 2 MG TABLET PO SCH ×2 (09:15→16:01)
[2018-01-06] MEDS: MULTIVITAMINS WITH MINERALS, THERAPEUTIC TABLET PO SCH (09:15)
[2018-01-06] MEDS: RisperiDONE CONC 3 MG/3 ML SOLUTION ORAL.SYG PO SCH ×2 (09:15→16:07)
[2018-01-06] MEDS: DOCUSATE SODIUM 100 MG CAPSULE PO SCH ×2 (09:15→16:02)
[2018-01-06] MEDS: MEGESTROL ACETATE 400 MG/10 ML SUSPENSION UDCUP PO SCH ×2 (09:16→16:03)
[2018-01-06] MEDS: NYSTATIN 15 GM POWDER BOTTLE TP SCH ×2 (09:16→17:06)
[2018-01-06] MEDS: ASCORBIC ACID 500 MG TABLET PO SCH (09:16)
[2018-01-06 16:00] VITALS: BP 107/64
[2018-01-06] MEDS: TraZODone HCL 100 MG TABLET PO SCH (20:03)
[2018-01-07 00:10] VITALS: BP 110/66
[2018-01-07] MEDS: LEVOTHYROXINE SODIUM 75 MCG TABLET PO SCH (06:27)
[2018-01-07] MEDS: PANTOPRAZOLE SODIUM 40 MG DR TABLET PO SCH (06:27)
[2018-01-07 08:13] VITALS: BP 110/61
[2018-01-07] MEDS: VALPROIC ACID 250 MG/5 ML SYRUP UDCUP PO SCH ×2 (08:25→16:31)
[2018-01-07] MEDS: MEGESTROL ACETATE 400 MG/10 ML SUSPENSION UDCUP PO SCH ×2 (08:25→16:32)
[2018-01-07] MEDS: ASCORBIC ACID 500 MG TABLET PO SCH (08:26)
[2018-01-07] MEDS: DOCUSATE SODIUM 100 MG CAPSULE PO SCH ×2 (08:26→16:32)
[2018-01-07] MEDS: RisperiDONE CONC 3 MG/3 ML SOLUTION ORAL.SYG PO SCH ×2 (08:26→16:32)
[2018-01-07] MEDS: BENZTROPINE MESYLATE 2 MG TABLET PO SCH ×2 (08:26→16:32)
[2018-01-07] MEDS: MULTIVITAMINS WITH MINERALS, THERAPEUTIC TABLET PO SCH (08:26)
[2018-01-07] MEDS: NYSTATIN 15 GM POWDER BOTTLE TP SCH ×2 (08:27→16:32)
[2018-01-07] MEDS: HALOPERIDOL 5 MG TABLET PO PRN ×2 (13:08→17:15)
[2018-01-07 16:29] VITALS: BP 116/76
[2018-01-07] MEDS: TraZODone HCL 100 MG TABLET PO SCH (20:54)
[2018-01-08 03:50] VITALS: BP 108/60
[2018-01-08] MEDS: LEVOTHYROXINE SODIUM 75 MCG TABLET PO SCH (06:50)
[2018-01-08] MEDS: PANTOPRAZOLE SODIUM 40 MG DR TABLET PO SCH (06:50)
[2018-01-08] MEDS: VALPROIC ACID 250 MG/5 ML SYRUP UDCUP PO SCH ×2 (08:16→16:17)
[2018-01-08] MEDS: MULTIVITAMINS WITH MINERALS, THERAPEUTIC TABLET PO SCH (08:16)
[2018-01-08] MEDS: MEGESTROL ACETATE 400 MG/10 ML SUSPENSION UDCUP PO SCH ×2 (08:16→16:17)
[2018-01-08] MEDS: DOCUSATE SODIUM 100 MG CAPSULE PO SCH ×2 (08:16→16:17)
[2018-01-08] MEDS: ASCORBIC ACID 500 MG TABLET PO SCH (08:16)
[2018-01-08] MEDS: NYSTATIN 15 GM POWDER BOTTLE TP SCH ×2 (08:16→16:19)
[2018-01-08] MEDS: BENZTROPINE MESYLATE 2 MG TABLET PO SCH ×2 (08:16→16:17)
[2018-01-08] MEDS: RisperiDONE CONC 3 MG/3 ML SOLUTION ORAL.SYG PO SCH ×2 (08:17→16:17)
[2018-01-08 08:33] VITALS: BP 112/76
[2018-01-08] MEDS: HALOPERIDOL 5 MG TABLET PO PRN (12:20)
[2018-01-08 16:02] VITALS: BP 114/73
[2018-01-08] MEDS: TraZODone HCL 100 MG TABLET PO SCH (20:37)
[2018-01-09 06:14] VITALS: BP 115/72
[2018-01-09] MEDS: PANTOPRAZOLE SODIUM 40 MG DR TABLET PO SCH (06:58)
[2018-01-09] MEDS: LEVOTHYROXINE SODIUM 75 MCG TABLET PO SCH (06:58)
[2018-01-09 08:10] VITALS: BP 120/72
[2018-01-09] MEDS: BENZTROPINE MESYLATE 2 MG TABLET PO SCH ×2 (09:10→16:45)
[2018-01-09] MEDS: DOCUSATE SODIUM 100 MG CAPSULE PO SCH ×2 (09:10→16:45)
[2018-01-09] MEDS: MEGESTROL ACETATE 400 MG/10 ML SUSPENSION UDCUP PO SCH ×2 (09:10→16:45)
[2018-01-09] MEDS: VALPROIC ACID 250 MG/5 ML SYRUP UDCUP PO SCH ×2 (09:10→16:45)
[2018-01-09] MEDS: MULTIVITAMINS WITH MINERALS, THERAPEUTIC TABLET PO SCH (09:11)
[2018-01-09] MEDS: ASCORBIC ACID 500 MG TABLET PO SCH (09:11)
[2018-01-09] MEDS: RisperiDONE CONC 3 MG/3 ML SOLUTION ORAL.SYG PO SCH ×2 (09:12→16:45)
[2018-01-09] MEDS: NYSTATIN 15 GM POWDER BOTTLE TP SCH ×2 (09:12→16:46)
[2018-01-09] MEDS: HALOPERIDOL 5 MG TABLET PO PRN ×2 (12:48→16:51)
[2018-01-09 17:51] VITALS: BP 132/88
[2018-01-09] MEDS: TraZODone HCL 100 MG TABLET PO SCH (20:20)
[2018-01-10 06:28] VITALS: BP 108/67
[2018-01-10] MEDS: LEVOTHYROXINE SODIUM 75 MCG TABLET PO SCH (06:32)
[2018-01-10] MEDS: PANTOPRAZOLE SODIUM 40 MG DR TABLET PO SCH (06:33)
[2018-01-10] MEDS: DOCUSATE SODIUM 100 MG CAPSULE PO SCH ×2 (08:06→16:01)
[2018-01-10] MEDS: ASCORBIC ACID 500 MG TABLET PO SCH (08:06)
[2018-01-10] MEDS: MEGESTROL ACETATE 400 MG/10 ML SUSPENSION UDCUP PO SCH ×2 (08:06→17:00)
[2018-01-10] MEDS: RisperiDONE CONC 3 MG/3 ML SOLUTION ORAL.SYG PO SCH ×2 (08:06→16:00)
[2018-01-10] MEDS: BENZTROPINE MESYLATE 2 MG TABLET PO SCH ×2 (08:07→16:01)
[2018-01-10] MEDS: MULTIVITAMINS WITH MINERALS, THERAPEUTIC TABLET PO SCH (08:07)
[2018-01-10] MEDS: VALPROIC ACID 250 MG/5 ML SYRUP UDCUP PO SCH ×2 (08:07→16:00)
[2018-01-10] MEDS: NYSTATIN 15 GM POWDER BOTTLE TP SCH ×2 (08:12→16:11)
[2018-01-10 08:25] VITALS: BP 133/90
[2018-01-10 16:02] VITALS: BP 133/63
[2018-01-10] MEDS: TraZODone HCL 100 MG TABLET PO SCH (20:10)
[2018-01-11 05:32] VITALS: BP 136/68
[2018-01-11] MEDS: LEVOTHYROXINE SODIUM 75 MCG TABLET PO SCH (06:53)
[2018-01-11] MEDS: PANTOPRAZOLE SODIUM 40 MG DR TABLET PO SCH (06:53)
[2018-01-11] MEDS: RisperiDONE CONC 3 MG/3 ML SOLUTION ORAL.SYG PO SCH ×2 (08:30→17:45)
[2018-01-11] MEDS: MEGESTROL ACETATE 400 MG/10 ML SUSPENSION UDCUP PO SCH ×2 (08:30→16:28)
[2018-01-11] MEDS: NYSTATIN 15 GM POWDER BOTTLE TP SCH ×2 (08:31→17:45)
[2018-01-11] MEDS: MULTIVITAMINS WITH MINERALS, THERAPEUTIC TABLET PO SCH (08:31)
[2018-01-11] MEDS: BENZTROPINE MESYLATE 2 MG TABLET PO SCH ×2 (08:31→17:45)
[2018-01-11] MEDS: DOCUSATE SODIUM 100 MG CAPSULE PO SCH ×2 (08:31→17:45)
[2018-01-11] MEDS: VALPROIC ACID 250 MG/5 ML SYRUP UDCUP PO SCH ×2 (08:31→17:45)
[2018-01-11] MEDS: ASCORBIC ACID 500 MG TABLET PO SCH (08:31)
[2018-01-11 16:03] VITALS: BP 112/86
[2018-01-11] MEDS: TraZODone HCL 100 MG TABLET PO SCH (21:01)
[2018-01-12] MEDS: LEVOTHYROXINE SODIUM 75 MCG TABLET PO SCH (06:53)
[2018-01-12] MEDS: PANTOPRAZOLE SODIUM 40 MG DR TABLET PO SCH (06:53)
[2018-01-12 08:26] VITALS: BP 121/75
[2018-01-12] MEDS: RisperiDONE CONC 3 MG/3 ML SOLUTION ORAL.SYG PO SCH ×2 (08:36→17:03)
[2018-01-12] MEDS: VALPROIC ACID 250 MG/5 ML SYRUP UDCUP PO SCH ×2 (08:36→17:04)
[2018-01-12] MEDS: MEGESTROL ACETATE 400 MG/10 ML SUSPENSION UDCUP PO SCH ×2 (08:38→17:03)
[2018-01-12] MEDS: DOCUSATE SODIUM 100 MG CAPSULE PO SCH ×3 (08:38→17:04)
[2018-01-12] MEDS: BENZTROPINE MESYLATE 2 MG TABLET PO SCH ×2 (08:55→17:04)
[2018-01-12] MEDS: MULTIVITAMINS WITH MINERALS, THERAPEUTIC TABLET PO SCH (08:55)
[2018-01-12] MEDS: NYSTATIN 15 GM POWDER BOTTLE TP SCH ×2 (08:56→17:04)
[2018-01-12] MEDS: ASCORBIC ACID 500 MG TABLET PO SCH (08:56)
[2018-01-12] MEDS: HALOPERIDOL 5 MG TABLET PO PRN ×2 (14:51→21:01)
[2018-01-12 16:24] VITALS: BP 117/71
[2018-01-12] MEDS: TraZODone HCL 100 MG TABLET PO SCH (21:01)
[2018-01-13 06:20] VITALS: BP 118/68
[2018-01-13] MEDS: PANTOPRAZOLE SODIUM 40 MG DR TABLET PO SCH (06:34)
[2018-01-13] MEDS: LEVOTHYROXINE SODIUM 75 MCG TABLET PO SCH (06:35)
[2018-01-13 08:08] VITALS: BP 121/66
[2018-01-13] MEDS: VALPROIC ACID 250 MG/5 ML SYRUP UDCUP PO SCH ×2 (08:34→16:52)
[2018-01-13] MEDS: DOCUSATE SODIUM 100 MG CAPSULE PO SCH ×2 (08:34→16:52)
[2018-01-13] MEDS: MULTIVITAMINS WITH MINERALS, THERAPEUTIC TABLET PO SCH (08:34)
[2018-01-13] MEDS: BENZTROPINE MESYLATE 2 MG TABLET PO SCH ×2 (08:34→16:52)
[2018-01-13] MEDS: NYSTATIN 15 GM POWDER BOTTLE TP SCH ×2 (08:35→16:52)
[2018-01-13] MEDS: MEGESTROL ACETATE 400 MG/10 ML SUSPENSION UDCUP PO SCH ×2 (08:35→16:52)
[2018-01-13] MEDS: RisperiDONE CONC 3 MG/3 ML SOLUTION ORAL.SYG PO SCH ×2 (08:35→16:52)
[2018-01-13] MEDS: HALOPERIDOL 5 MG TABLET PO PRN ×2 (14:06→20:42)
[2018-01-13 16:10] VITALS: BP 141/83
[2018-01-13] MEDS: TraZODone HCL 100 MG TABLET PO SCH (20:41)
[2018-01-14] MEDS: PANTOPRAZOLE SODIUM 40 MG DR TABLET PO SCH (06:36)
[2018-01-14] MEDS: LEVOTHYROXINE SODIUM 75 MCG TABLET PO SCH (06:36)
[2018-01-14 08:12] VITALS: BP 105/51
[2018-01-14] MEDS: MULTIVITAMINS WITH MINERALS, THERAPEUTIC TABLET PO SCH (08:57)
[2018-01-14] MEDS: BENZTROPINE MESYLATE 2 MG TABLET PO SCH ×2 (08:57→16:29)
[2018-01-14] MEDS: MEGESTROL ACETATE 400 MG/10 ML SUSPENSION UDCUP PO SCH ×2 (08:58→16:31)
[2018-01-14] MEDS: RisperiDONE CONC 3 MG/3 ML SOLUTION ORAL.SYG PO SCH ×2 (08:58→16:31)
[2018-01-14] MEDS: DOCUSATE SODIUM 100 MG CAPSULE PO SCH ×2 (08:58→16:29)
[2018-01-14] MEDS: NYSTATIN 15 GM POWDER BOTTLE TP SCH ×2 (08:58→16:39)
[2018-01-14] MEDS: VALPROIC ACID 250 MG/5 ML SYRUP UDCUP PO SCH ×2 (08:58→16:30)
[2018-01-14] MEDS: HALOPERIDOL 5 MG TABLET PO PRN (12:31)
[2018-01-14] MEDS: TraZODone HCL 100 MG TABLET PO SCH (20:29)
[2018-01-15] MEDS: PANTOPRAZOLE SODIUM 40 MG DR TABLET PO SCH (06:45)
[2018-01-15] MEDS: LEVOTHYROXINE SODIUM 75 MCG TABLET PO SCH (06:45)
[2018-01-15 08:15] VITALS: BP 132/83
[2018-01-15] MEDS: MULTIVITAMINS WITH MINERALS, THERAPEUTIC TABLET PO SCH (08:49)
[2018-01-15] MEDS: DOCUSATE SODIUM 100 MG CAPSULE PO SCH ×2 (08:49→17:20)
[2018-01-15] MEDS: BENZTROPINE MESYLATE 2 MG TABLET PO SCH ×2 (08:49→17:20)
[2018-01-15] MEDS: MEGESTROL ACETATE 400 MG/10 ML SUSPENSION UDCUP PO SCH ×2 (08:49→17:19)
[2018-01-15] MEDS: VALPROIC ACID 250 MG/5 ML SYRUP UDCUP PO SCH ×2 (08:49→17:19)
[2018-01-15] MEDS: RisperiDONE CONC 3 MG/3 ML SOLUTION ORAL.SYG PO SCH ×2 (08:50→17:19)
[2018-01-15] MEDS: NYSTATIN 15 GM POWDER BOTTLE TP SCH ×2 (08:50→17:19)
[2018-01-15] MEDS: HALOPERIDOL 5 MG TABLET PO PRN (20:48)
[2018-01-15] MEDS: TraZODone HCL 100 MG TABLET PO SCH (20:48)
[2018-01-16 05:26] VITALS: BP 134/88
[2018-01-16] MEDS: PANTOPRAZOLE SODIUM 40 MG DR TABLET PO SCH (06:50)
[2018-01-16] MEDS: LEVOTHYROXINE SODIUM 75 MCG TABLET PO SCH (06:50)
[2018-01-16 08:16] VITALS: BP 107/59
[2018-01-16] MEDS: DOCUSATE SODIUM 100 MG CAPSULE PO SCH ×2 (08:22→16:52)
[2018-01-16] MEDS: VALPROIC ACID 250 MG/5 ML SYRUP UDCUP PO SCH ×2 (08:23→16:52)
[2018-01-16] MEDS: BENZTROPINE MESYLATE 2 MG TABLET PO SCH ×2 (08:23→16:52)
[2018-01-16] MEDS: RisperiDONE CONC 3 MG/3 ML SOLUTION ORAL.SYG PO SCH ×2 (10:00→16:53)
[2018-01-16] MEDS: NYSTATIN 15 GM POWDER BOTTLE TP SCH ×2 (10:01→16:53)
[2018-01-16] MEDS: MEGESTROL ACETATE 400 MG/10 ML SUSPENSION UDCUP PO SCH ×2 (10:01→16:52)
[2018-01-16] MEDS: MULTIVITAMINS WITH MINERALS, THERAPEUTIC TABLET PO SCH (10:02)
[2018-01-16] MEDS: HALOPERIDOL 5 MG TABLET PO PRN (12:58)
[2018-01-16 16:10] VITALS: BP 110/62
[2018-01-16] MEDS: TraZODone HCL 100 MG TABLET PO SCH (20:31)
[2018-01-17 05:35] VITALS: BP 113/64
[2018-01-17] MEDS: PANTOPRAZOLE SODIUM 40 MG DR TABLET PO SCH (07:19)
[2018-01-17] MEDS: LEVOTHYROXINE SODIUM 75 MCG TABLET PO SCH (07:19)
[2018-01-17 08:30] VITALS: BP 118/74
[2018-01-17] MEDS: VALPROIC ACID 250 MG/5 ML SYRUP UDCUP PO SCH ×2 (08:31→17:22)
[2018-01-17] MEDS: MULTIVITAMINS WITH MINERALS, THERAPEUTIC TABLET PO SCH (08:31)
[2018-01-17] MEDS: RisperiDONE CONC 3 MG/3 ML SOLUTION ORAL.SYG PO SCH ×2 (08:31→17:22)
[2018-01-17] MEDS: DOCUSATE SODIUM 100 MG CAPSULE PO SCH ×2 (08:32→17:23)
[2018-01-17] MEDS: BENZTROPINE MESYLATE 2 MG TABLET PO SCH ×2 (08:32→17:23)
[2018-01-17] MEDS: NYSTATIN 15 GM POWDER BOTTLE TP SCH ×2 (08:33→17:24)
[2018-01-17] MEDS: MEGESTROL ACETATE 400 MG/10 ML SUSPENSION UDCUP PO SCH ×2 (08:34→17:22)
[2018-01-17 16:00] VITALS: BP 130/89
[2018-01-17 16:10] VITALS: BP 134/97
[2018-01-17] MEDS: TraZODone HCL 100 MG TABLET PO SCH (20:23)
[2018-01-18 05:33] VITALS: BP 109/63
[2018-01-18] MEDS: PANTOPRAZOLE SODIUM 40 MG DR TABLET PO SCH (06:10)
[2018-01-18] MEDS: LEVOTHYROXINE SODIUM 75 MCG TABLET PO SCH (06:10)
[2018-01-18] MEDS: TraMADol HCL 50 MG TABLET PO PRN ×2 (06:10→16:59)
[2018-01-18] MEDS: VALPROIC ACID 250 MG/5 ML SYRUP UDCUP PO SCH ×2 (10:14→16:57)
[2018-01-18] MEDS: BENZTROPINE MESYLATE 2 MG TABLET PO SCH ×2 (10:14→16:58)
[2018-01-18] MEDS: RisperiDONE CONC 3 MG/3 ML SOLUTION ORAL.SYG PO SCH ×2 (10:14→16:58)
[2018-01-18] MEDS: DOCUSATE SODIUM 100 MG CAPSULE PO SCH ×2 (10:14→16:58)
[2018-01-18] MEDS: MEGESTROL ACETATE 400 MG/10 ML SUSPENSION UDCUP PO SCH ×2 (10:14→16:58)
[2018-01-18] MEDS: MULTIVITAMINS WITH MINERALS, THERAPEUTIC TABLET PO SCH (10:14)
[2018-01-18] MEDS: NYSTATIN 15 GM POWDER BOTTLE TP SCH ×2 (10:15→16:58)
[2018-01-18] MEDS: HALOPERIDOL 5 MG TABLET PO PRN ×2 (14:46→21:03)
[2018-01-18 16:08] VITALS: BP 134/88
[2018-01-18 16:57] VITALS: BP 130/84
[2018-01-18 17:59] VITALS: BP 126/80
[2018-01-18] MEDS: TraZODone HCL 100 MG TABLET PO SCH (21:03)
[2018-01-19 06:20] VITALS: BP 117/83
[2018-01-19] MEDS: PANTOPRAZOLE SODIUM 40 MG DR TABLET PO SCH (06:30)
[2018-01-19] MEDS: LEVOTHYROXINE SODIUM 75 MCG TABLET PO SCH (06:30)
[2018-01-19] MEDS: BENZTROPINE MESYLATE 2 MG TABLET PO SCH ×2 (08:52→16:46)
[2018-01-19] MEDS: VALPROIC ACID 250 MG/5 ML SYRUP UDCUP PO SCH ×2 (08:53→16:46)
[2018-01-19] MEDS: NYSTATIN 15 GM POWDER BOTTLE TP SCH ×2 (08:53→16:46)
[2018-01-19] MEDS: MULTIVITAMINS WITH MINERALS, THERAPEUTIC TABLET PO SCH (08:53)
[2018-01-19] MEDS: MEGESTROL ACETATE 400 MG/10 ML SUSPENSION UDCUP PO SCH ×2 (08:53→16:46)
[2018-01-19] MEDS: DOCUSATE SODIUM 100 MG CAPSULE PO SCH ×2 (08:53→16:46)
[2018-01-19] MEDS: RisperiDONE CONC 3 MG/3 ML SOLUTION ORAL.SYG PO SCH ×2 (08:54→16:46)
[2018-01-19 11:49] VITALS: BP 122/75
[2018-01-19] MEDS: TraMADol HCL 50 MG TABLET PO PRN (11:49)
[2018-01-19] MEDS: HALOPERIDOL 5 MG TABLET PO PRN ×2 (13:29→21:41)
[2018-01-19 16:00] VITALS: BP 112/76
[2018-01-19] MEDS: TraZODone HCL 100 MG TABLET PO SCH (21:41)
[2018-01-20] MEDS: LEVOTHYROXINE SODIUM 75 MCG TABLET PO SCH (06:33)
[2018-01-20] MEDS: PANTOPRAZOLE SODIUM 40 MG DR TABLET PO SCH (06:33)
[2018-01-20] MEDS: NYSTATIN 15 GM POWDER BOTTLE TP SCH ×2 (08:19→17:53)
[2018-01-20] MEDS: VALPROIC ACID 250 MG/5 ML SYRUP UDCUP PO SCH (08:19)
[2018-01-20] MEDS: MEGESTROL ACETATE 400 MG/10 ML SUSPENSION UDCUP PO SCH ×2 (08:19→17:56)
[2018-01-20] MEDS: RisperiDONE CONC 3 MG/3 ML SOLUTION ORAL.SYG PO SCH ×2 (08:19→17:53)
[2018-01-20 08:20] VITALS: BP 100/53
[2018-01-20] MEDS: DOCUSATE SODIUM 100 MG CAPSULE PO SCH ×2 (08:33→17:52)
[2018-01-20] MEDS: MULTIVITAMINS WITH MINERALS, THERAPEUTIC TABLET PO SCH (08:33)
[2018-01-20] MEDS: BENZTROPINE MESYLATE 2 MG TABLET PO SCH ×2 (08:33→17:52)
[2018-01-20] MEDS: TraMADol HCL 50 MG TABLET PO PRN (13:44)
[2018-01-20] MEDS: HALOPERIDOL 5 MG TABLET PO PRN (13:44)
[2018-01-20] MEDS: VALPROIC ACID 250 MG CAPSULE PO SCH (17:52)
[2018-01-20 17:59] VITALS: BP 127/83
[2018-01-20] MEDS: TraZODone HCL 100 MG TABLET PO SCH (21:43)
[2018-01-21] MEDS: LEVOTHYROXINE SODIUM 75 MCG TABLET PO SCH (06:32)
[2018-01-21] MEDS: PANTOPRAZOLE SODIUM 40 MG DR TABLET PO SCH (06:33)
[2018-01-21 08:21] VITALS: BP 100/63
[2018-01-21] MEDS: RisperiDONE CONC 3 MG/3 ML SOLUTION ORAL.SYG PO SCH ×2 (09:30→16:14)
[2018-01-21] MEDS: VALPROIC ACID 250 MG CAPSULE PO SCH ×2 (09:31→16:14)
[2018-01-21] MEDS: DOCUSATE SODIUM 100 MG CAPSULE PO SCH ×2 (09:32→16:14)
[2018-01-21] MEDS: BENZTROPINE MESYLATE 2 MG TABLET PO SCH ×2 (09:32→16:14)
[2018-01-21] MEDS: MEGESTROL ACETATE 400 MG/10 ML SUSPENSION UDCUP PO SCH ×2 (09:33→16:14)
[2018-01-21] MEDS: MULTIVITAMINS WITH MINERALS, THERAPEUTIC TABLET PO SCH (09:33)
[2018-01-21] MEDS: NYSTATIN 15 GM POWDER BOTTLE TP SCH ×2 (09:34→16:17)
[2018-01-21 13:36] VITALS: BP 106/89
[2018-01-21] MEDS: TraMADol HCL 50 MG TABLET PO PRN (13:36)
[2018-01-21] MEDS: HALOPERIDOL 5 MG TABLET PO PRN (15:11)
[2018-01-21 16:10] VITALS: BP 111/60
[2018-01-21] MEDS: TraZODone HCL 100 MG TABLET PO SCH (21:04)
[2018-01-22 00:51] VITALS: BP 140/72
[2018-01-22] MEDS: PANTOPRAZOLE SODIUM 40 MG DR TABLET PO SCH (06:53)
[2018-01-22] MEDS: LEVOTHYROXINE SODIUM 75 MCG TABLET PO SCH (06:53)
[2018-01-22 08:08] VITALS: BP 104/64
[2018-01-22] MEDS: RisperiDONE CONC 3 MG/3 ML SOLUTION ORAL.SYG PO SCH ×2 (09:19→16:31)
[2018-01-22] MEDS: MEGESTROL ACETATE 400 MG/10 ML SUSPENSION UDCUP PO SCH ×2 (09:19→16:31)
[2018-01-22] MEDS: VALPROIC ACID 250 MG CAPSULE PO SCH ×2 (09:20→16:33)
[2018-01-22] MEDS: DOCUSATE SODIUM 100 MG CAPSULE PO SCH ×2 (09:20→16:30)
[2018-01-22] MEDS: BENZTROPINE MESYLATE 2 MG TABLET PO SCH ×2 (09:20→16:31)
[2018-01-22] MEDS: MULTIVITAMINS WITH MINERALS, THERAPEUTIC TABLET PO SCH (09:20)
[2018-01-22] MEDS: NYSTATIN 15 GM POWDER BOTTLE TP SCH ×2 (09:21→16:31)
[2018-01-22] MEDS: HALOPERIDOL 5 MG TABLET PO PRN (09:57)
[2018-01-22] MEDS: TraMADol HCL 50 MG TABLET PO PRN ×2 (10:15→20:16)
[2018-01-22] MEDS: TraZODone HCL 100 MG TABLET PO SCH (21:19)
[2018-01-23 02:05] VITALS: BP 129/84
[2018-01-23] MEDS: PANTOPRAZOLE SODIUM 40 MG DR TABLET PO SCH (06:26)
[2018-01-23] MEDS: LEVOTHYROXINE SODIUM 75 MCG TABLET PO SCH (06:26)
[2018-01-23] MEDS: MULTIVITAMINS WITH MINERALS, THERAPEUTIC TABLET PO SCH (08:16)
[2018-01-23] MEDS: DOCUSATE SODIUM 100 MG CAPSULE PO SCH ×2 (08:16→16:16)
[2018-01-23] MEDS: RisperiDONE CONC 3 MG/3 ML SOLUTION ORAL.SYG PO SCH ×2 (08:16→16:16)
[2018-01-23] MEDS: NYSTATIN 15 GM POWDER BOTTLE TP SCH ×2 (08:16→16:17)
[2018-01-23] MEDS: VALPROIC ACID 250 MG CAPSULE PO SCH ×2 (08:16→16:16)
[2018-01-23] MEDS: MEGESTROL ACETATE 400 MG/10 ML SUSPENSION UDCUP PO SCH ×2 (08:16→16:16)
[2018-01-23] MEDS: BENZTROPINE MESYLATE 2 MG TABLET PO SCH ×2 (08:16→16:16)
[2018-01-23 09:20] VITALS: BP 125/67
[2018-01-23] MEDS: TraMADol HCL 50 MG TABLET PO PRN (09:23)
[2018-01-23] MEDS: BACITRACIN 28.4 GM OINTMENT TP SCH (16:17)
[2018-01-23] MEDS: TraZODone HCL 100 MG TABLET PO SCH (20:29)
[2018-01-24 02:22] VITALS: BP 135/79
[2018-01-24] MEDS: HALOPERIDOL 5 MG TABLET PO PRN ×3 (02:26→16:29)
[2018-01-24] MEDS: LEVOTHYROXINE SODIUM 75 MCG TABLET PO SCH (06:39)
[2018-01-24] MEDS: PANTOPRAZOLE SODIUM 40 MG DR TABLET PO SCH (06:39)
[2018-01-24 08:22] VITALS: BP 116/71
[2018-01-24] MEDS: MULTIVITAMINS WITH MINERALS, THERAPEUTIC TABLET PO SCH (08:46)
[2018-01-24] MEDS: VALPROIC ACID 250 MG CAPSULE PO SCH ×2 (08:46→16:28)
[2018-01-24] MEDS: BENZTROPINE MESYLATE 2 MG TABLET PO SCH ×2 (08:46→16:28)
[2018-01-24] MEDS: DOCUSATE SODIUM 100 MG CAPSULE PO SCH ×2 (08:46→16:29)
[2018-01-24] MEDS: RisperiDONE CONC 3 MG/3 ML SOLUTION ORAL.SYG PO SCH ×2 (08:47→16:29)
[2018-01-24] MEDS: MEGESTROL ACETATE 400 MG/10 ML SUSPENSION UDCUP PO SCH ×2 (08:47→16:29)
[2018-01-24] MEDS: BACITRACIN 28.4 GM OINTMENT TP SCH ×2 (08:47→16:30)
[2018-01-24] MEDS: NYSTATIN 15 GM POWDER BOTTLE TP SCH ×2 (08:47→16:30)
[2018-01-24] MEDS: TraMADol HCL 50 MG TABLET PO PRN (15:01)
[2018-01-24 16:12] VITALS: BP 111/69
[2018-01-24] MEDS: TraZODone HCL 100 MG TABLET PO SCH (20:20)
[2018-01-25] MEDS: PANTOPRAZOLE SODIUM 40 MG DR TABLET PO SCH (06:30)
[2018-01-25] MEDS: LEVOTHYROXINE SODIUM 75 MCG TABLET PO SCH (06:30)
[2018-01-25 08:21] VITALS: BP 137/70
[2018-01-25] MEDS: MEGESTROL ACETATE 400 MG/10 ML SUSPENSION UDCUP PO SCH ×2 (08:42→17:43)
[2018-01-25] MEDS: VALPROIC ACID 250 MG CAPSULE PO SCH ×2 (08:42→17:42)
[2018-01-25] MEDS: DOCUSATE SODIUM 100 MG CAPSULE PO SCH ×2 (08:44→17:50)
[2018-01-25] MEDS: BENZTROPINE MESYLATE 2 MG TABLET PO SCH ×2 (08:44→17:50)
[2018-01-25] MEDS: RisperiDONE CONC 3 MG/3 ML SOLUTION ORAL.SYG PO SCH ×2 (08:44→17:42)
[2018-01-25] MEDS: MULTIVITAMINS WITH MINERALS, THERAPEUTIC TABLET PO SCH (08:44)
[2018-01-25] MEDS: BACITRACIN 28.4 GM OINTMENT TP SCH ×2 (08:45→17:49)
[2018-01-25] MEDS: NYSTATIN 15 GM POWDER BOTTLE TP SCH ×2 (08:46→17:50)
[2018-01-25] MEDS: TraMADol HCL 50 MG TABLET PO PRN (10:56)
[2018-01-25 16:34] VITALS: BP 123/85
[2018-01-25] MEDS: TraZODone HCL 100 MG TABLET PO SCH (21:21)
[2018-01-25] MEDS: HALOPERIDOL 5 MG TABLET PO PRN (21:22)
[2018-01-26 06:07] VITALS: BP 134/82
[2018-01-26] MEDS: LEVOTHYROXINE SODIUM 75 MCG TABLET PO SCH (06:30)
[2018-01-26] MEDS: PANTOPRAZOLE SODIUM 40 MG DR TABLET PO SCH (06:30)
[2018-01-26 08:28] VITALS: BP 130/75
[2018-01-26] MEDS: MEGESTROL ACETATE 400 MG/10 ML SUSPENSION UDCUP PO SCH ×2 (09:11→16:44)
[2018-01-26] MEDS: BACITRACIN 28.4 GM OINTMENT TP SCH ×2 (09:12→16:47)
[2018-01-26] MEDS: RisperiDONE CONC 3 MG/3 ML SOLUTION ORAL.SYG PO SCH ×2 (09:12→16:43)
[2018-01-26] MEDS: BENZTROPINE MESYLATE 2 MG TABLET PO SCH ×2 (09:12→16:44)
[2018-01-26] MEDS: DOCUSATE SODIUM 100 MG CAPSULE PO SCH ×2 (09:12→16:45)
[2018-01-26] MEDS: MULTIVITAMINS WITH MINERALS, THERAPEUTIC TABLET PO SCH (09:12)
[2018-01-26] MEDS: NYSTATIN 15 GM POWDER BOTTLE TP SCH ×2 (09:12→16:48)
[2018-01-26] MEDS: VALPROIC ACID 250 MG CAPSULE PO SCH ×2 (09:12→16:45)
[2018-01-26] MEDS: TraMADol HCL 50 MG TABLET PO PRN ×2 (12:14→21:04)
[2018-01-26] MEDS: HALOPERIDOL 5 MG TABLET PO PRN (16:46)
[2018-01-26 17:19] VITALS: BP 120/74
[2018-01-26] MEDS: TraZODone HCL 100 MG TABLET PO SCH (20:43)
[2018-01-26 21:04] VITALS: BP 125/66
[2018-01-27] MEDS: PANTOPRAZOLE SODIUM 40 MG DR TABLET PO SCH (06:29)
[2018-01-27] MEDS: LEVOTHYROXINE SODIUM 75 MCG TABLET PO SCH (06:29)
[2018-01-27 08:18] VITALS: BP 133/66
[2018-01-27] MEDS: RisperiDONE CONC 3 MG/3 ML SOLUTION ORAL.SYG PO SCH ×2 (09:38→16:08)
[2018-01-27] MEDS: BENZTROPINE MESYLATE 2 MG TABLET PO SCH ×2 (09:38→16:07)
[2018-01-27] MEDS: BACITRACIN 28.4 GM OINTMENT TP SCH ×2 (09:38→17:00)
[2018-01-27] MEDS: MEGESTROL ACETATE 400 MG/10 ML SUSPENSION UDCUP PO SCH ×2 (09:38→16:07)
[2018-01-27] MEDS: MULTIVITAMINS WITH MINERALS, THERAPEUTIC TABLET PO SCH (09:39)
[2018-01-27] MEDS: NYSTATIN 15 GM POWDER BOTTLE TP SCH ×2 (09:39→17:00)
[2018-01-27] MEDS: VALPROIC ACID 250 MG CAPSULE PO SCH ×2 (09:39→16:07)
[2018-01-27] MEDS: DOCUSATE SODIUM 100 MG CAPSULE PO SCH ×2 (09:39→16:08)
[2018-01-27] MEDS: METHYL SALICYLATE/MENTHOL 85 GM CREAM TP PRN ×2 (09:40→20:31)
[2018-01-27 10:28] VITALS: BP 130/70
[2018-01-27] MEDS: TraMADol HCL 50 MG TABLET PO PRN ×2 (10:28→20:31)
[2018-01-27 11:28] VITALS: BP 128/62
[2018-01-27 16:28] VITALS: BP 100/60
[2018-01-27] MEDS: TraZODone HCL 100 MG TABLET PO SCH (20:31)
[2018-01-28] MEDS: PANTOPRAZOLE SODIUM 40 MG DR TABLET PO SCH (06:40)
[2018-01-28] MEDS: LEVOTHYROXINE SODIUM 75 MCG TABLET PO SCH (06:40)
[2018-01-28 08:12] VITALS: BP 106/75
[2018-01-28] MEDS: MEGESTROL ACETATE 400 MG/10 ML SUSPENSION UDCUP PO SCH ×2 (08:54→16:27)
[2018-01-28] MEDS: VALPROIC ACID 250 MG CAPSULE PO SCH ×2 (08:54→16:27)
[2018-01-28] MEDS: DOCUSATE SODIUM 100 MG CAPSULE PO SCH ×2 (08:54→16:27)
[2018-01-28] MEDS: BACITRACIN 28.4 GM OINTMENT TP SCH ×2 (08:55→16:28)
[2018-01-28] MEDS: RisperiDONE CONC 3 MG/3 ML SOLUTION ORAL.SYG PO SCH ×2 (08:55→16:27)
[2018-01-28] MEDS: MULTIVITAMINS WITH MINERALS, THERAPEUTIC TABLET PO SCH (08:56)
[2018-01-28] MEDS: NYSTATIN 15 GM POWDER BOTTLE TP SCH ×2 (08:57→16:28)
[2018-01-28] MEDS: BENZTROPINE MESYLATE 2 MG TABLET PO SCH ×2 (09:15→16:27)
[2018-01-28] MEDS: MAGNESIUM HYDROXIDE SUSPENSION 30 ML UDCUP PO PRN (09:26)
[2018-01-28] MEDS: HALOPERIDOL 5 MG TABLET PO PRN ×2 (09:49→16:28)
[2018-01-28 16:07] VITALS: BP 130/69
[2018-01-28] MEDS: TraZODone HCL 100 MG TABLET PO SCH (20:47)
[2018-01-29] MEDS: LEVOTHYROXINE SODIUM 75 MCG TABLET PO SCH (06:30)
[2018-01-29] MEDS: PANTOPRAZOLE SODIUM 40 MG DR TABLET PO SCH (06:30)
[2018-01-29] MEDS: BENZTROPINE MESYLATE 2 MG TABLET PO SCH ×2 (09:15→16:27)
[2018-01-29] MEDS: MULTIVITAMINS WITH MINERALS, THERAPEUTIC TABLET PO SCH (09:17)
[2018-01-29] MEDS: DOCUSATE SODIUM 100 MG CAPSULE PO SCH ×2 (09:17→16:27)
[2018-01-29] MEDS: VALPROIC ACID 250 MG CAPSULE PO SCH ×2 (09:18→16:27)
[2018-01-29] MEDS: RisperiDONE CONC 3 MG/3 ML SOLUTION ORAL.SYG PO SCH ×2 (09:18→16:27)
[2018-01-29] MEDS: NYSTATIN 15 GM POWDER BOTTLE TP SCH ×2 (09:19→16:27)
[2018-01-29] MEDS: MEGESTROL ACETATE 400 MG/10 ML SUSPENSION UDCUP PO SCH ×2 (09:19→16:27)
[2018-01-29] MEDS: BACITRACIN 28.4 GM OINTMENT TP SCH ×2 (09:19→16:27)
[2018-01-29] MEDS: HALOPERIDOL 5 MG TABLET PO PRN ×2 (12:04→16:27)
[2018-01-29] MEDS: METHYL SALICYLATE/MENTHOL 85 GM CREAM TP PRN (12:04)
[2018-01-29 13:42] VITALS: BP 122/67
[2018-01-29 16:44] VITALS: BP 128/62
[2018-01-29] MEDS: TraZODone HCL 100 MG TABLET PO SCH (20:25)
[2018-01-29] MEDS: TraMADol HCL 50 MG TABLET PO PRN (21:54)
[2018-01-30] MEDS: LEVOTHYROXINE SODIUM 75 MCG TABLET PO SCH (06:30)
[2018-01-30] MEDS: PANTOPRAZOLE SODIUM 40 MG DR TABLET PO SCH (06:30)
[2018-01-30 08:49] VITALS: BP 120/82
[2018-01-30] MEDS: VALPROIC ACID 250 MG CAPSULE PO SCH ×2 (09:19→17:05)
[2018-01-30] MEDS: BENZTROPINE MESYLATE 2 MG TABLET PO SCH ×2 (09:20→17:02)
[2018-01-30] MEDS: RisperiDONE CONC 3 MG/3 ML SOLUTION ORAL.SYG PO SCH ×2 (09:20→17:03)
[2018-01-30] MEDS: BACITRACIN 28.4 GM OINTMENT TP SCH ×2 (09:20→17:05)
[2018-01-30] MEDS: NYSTATIN 15 GM POWDER BOTTLE TP SCH ×2 (09:20→17:02)
[2018-01-30] MEDS: MEGESTROL ACETATE 400 MG/10 ML SUSPENSION UDCUP PO SCH ×2 (09:20→17:03)
[2018-01-30] MEDS: DOCUSATE SODIUM 100 MG CAPSULE PO SCH ×2 (09:20→17:02)
[2018-01-30] MEDS: MULTIVITAMINS WITH MINERALS, THERAPEUTIC TABLET PO SCH (09:20)
[2018-01-30 16:27] VITALS: BP 100/62
[2018-01-30] MEDS: HALOPERIDOL 5 MG TABLET PO PRN (17:30)
[2018-01-30] MEDS: TraZODone HCL 100 MG TABLET PO SCH (20:32)
[2018-01-31] MEDS: PANTOPRAZOLE SODIUM 40 MG DR TABLET PO SCH (06:27)
[2018-01-31] MEDS: LEVOTHYROXINE SODIUM 75 MCG TABLET PO SCH (06:27)
[2018-01-31] MEDS: VALPROIC ACID 250 MG CAPSULE PO SCH ×2 (08:34→16:41)
[2018-01-31] MEDS: MULTIVITAMINS WITH MINERALS, THERAPEUTIC TABLET PO SCH (08:34)
[2018-01-31] MEDS: DOCUSATE SODIUM 100 MG CAPSULE PO SCH ×2 (08:34→16:41)
[2018-01-31] MEDS: RisperiDONE CONC 3 MG/3 ML SOLUTION ORAL.SYG PO SCH ×2 (08:34→16:41)
[2018-01-31] MEDS: MEGESTROL ACETATE 400 MG/10 ML SUSPENSION UDCUP PO SCH ×2 (08:34→16:41)
[2018-01-31] MEDS: BENZTROPINE MESYLATE 2 MG TABLET PO SCH ×2 (08:34→16:40)
[2018-01-31] MEDS: BACITRACIN 28.4 GM OINTMENT TP SCH ×2 (08:35→16:42)
[2018-01-31] MEDS: NYSTATIN 15 GM POWDER BOTTLE TP SCH ×2 (08:35→16:42)
[2018-01-31] MEDS ORDERED: HALOPERIDOL LACTATE 5 MG/ML VIAL IM ONE (09:15)
[2018-01-31] MEDS ORDERED: LORazepam 2 MG/ML VIAL IM ONE (09:15)
[2018-01-31] MEDS ORDERED: DiphenhydrAMINE HCL 50 MG/ML VIAL IM ONE (09:15)
[2018-01-31 09:54] VITALS: BP 118/60
[2018-01-31 16:00] VITALS: BP 116/87
[2018-01-31] MEDS: MUPIROCIN CALCIUM 2% 22 GM OINTMENT NASAL SCH (16:40)
[2018-01-31] MEDS: TraZODone HCL 100 MG TABLET PO SCH (21:38)
[2018-02-01] MEDS: LEVOTHYROXINE SODIUM 75 MCG TABLET PO SCH (06:30)
[2018-02-01] MEDS: PANTOPRAZOLE SODIUM 40 MG DR TABLET PO SCH (06:30)
[2018-02-01] MEDS: MEGESTROL ACETATE 400 MG/10 ML SUSPENSION UDCUP PO SCH ×2 (09:06→16:14)
[2018-02-01] MEDS: DOCUSATE SODIUM 100 MG CAPSULE PO SCH ×2 (09:06→16:12)
[2018-02-01] MEDS: RisperiDONE CONC 3 MG/3 ML SOLUTION ORAL.SYG PO SCH ×2 (09:06→16:12)
[2018-02-01] MEDS: MUPIROCIN CALCIUM 2% 22 GM OINTMENT NASAL SCH ×2 (09:06→16:16)
[2018-02-01] MEDS: BACITRACIN 28.4 GM OINTMENT TP SCH ×2 (09:06→16:15)
[2018-02-01] MEDS: MULTIVITAMINS WITH MINERALS, THERAPEUTIC TABLET PO SCH (09:06)
[2018-02-01] MEDS: VALPROIC ACID 250 MG CAPSULE PO SCH ×2 (09:06→16:12)
[2018-02-01] MEDS: NYSTATIN 15 GM POWDER BOTTLE TP SCH ×2 (09:07→16:15)
[2018-02-01] MEDS: BENZTROPINE MESYLATE 2 MG TABLET PO SCH ×2 (09:07→16:12)
[2018-02-01 14:43] VITALS: BP 102/58
[2018-02-01 16:31] VITALS: BP 112/61
[2018-02-01] MEDS: TraZODone HCL 100 MG TABLET PO SCH (20:28)
[2018-02-01] MEDS: METHYL SALICYLATE/MENTHOL 85 GM CREAM TP PRN (21:13)
[2018-02-02] MEDS: PANTOPRAZOLE SODIUM 40 MG DR TABLET PO SCH (06:30)
[2018-02-02] MEDS: LEVOTHYROXINE SODIUM 75 MCG TABLET PO SCH (06:30)
[2018-02-02] MEDS: MULTIVITAMINS WITH MINERALS, THERAPEUTIC TABLET PO SCH (08:10)
[2018-02-02] MEDS: DOCUSATE SODIUM 100 MG CAPSULE PO SCH ×2 (08:10→16:09)
[2018-02-02] MEDS: VALPROIC ACID 250 MG CAPSULE PO SCH ×2 (08:10→16:09)
[2018-02-02] MEDS: BENZTROPINE MESYLATE 2 MG TABLET PO SCH ×2 (08:10→16:09)
[2018-02-02] MEDS: RisperiDONE CONC 3 MG/3 ML SOLUTION ORAL.SYG PO SCH ×2 (08:11→16:10)
[2018-02-02] MEDS: NYSTATIN 15 GM POWDER BOTTLE TP SCH ×2 (08:11→16:10)
[2018-02-02] MEDS: MEGESTROL ACETATE 400 MG/10 ML SUSPENSION UDCUP PO SCH ×2 (08:11→16:10)
[2018-02-02] MEDS: MUPIROCIN CALCIUM 2% 22 GM OINTMENT NASAL SCH ×2 (08:11→16:09)
[2018-02-02] MEDS: BACITRACIN 28.4 GM OINTMENT TP SCH (08:11)
[2018-02-02] MEDS: HALOPERIDOL 5 MG TABLET PO PRN ×2 (09:50→17:14)
[2018-02-02 10:22] VITALS: BP 121/74
[2018-02-02] MEDS: METHYL SALICYLATE/MENTHOL 85 GM CREAM TP PRN (17:14)
[2018-02-02 17:34] VITALS: BP 123/72
[2018-02-02 18:14] VITALS: BP 123/78
[2018-02-02] MEDS: TraZODone HCL 100 MG TABLET PO SCH (20:51)
[2018-02-03] MEDS: LEVOTHYROXINE SODIUM 75 MCG TABLET PO SCH (06:30)
[2018-02-03] MEDS: PANTOPRAZOLE SODIUM 40 MG DR TABLET PO SCH (06:30)
[2018-02-03 09:17] VITALS: BP 130/63
[2018-02-03] MEDS: MEGESTROL ACETATE 400 MG/10 ML SUSPENSION UDCUP PO SCH ×2 (09:28→16:18)
[2018-02-03] MEDS: MUPIROCIN CALCIUM 2% 22 GM OINTMENT NASAL SCH ×2 (09:28→16:18)
[2018-02-03] MEDS: RisperiDONE CONC 3 MG/3 ML SOLUTION ORAL.SYG PO SCH ×2 (09:28→16:18)
[2018-02-03] MEDS: NYSTATIN 15 GM POWDER BOTTLE TP SCH ×2 (09:28→16:18)
[2018-02-03] MEDS: VALPROIC ACID 250 MG CAPSULE PO SCH ×2 (09:29→16:17)
[2018-02-03] MEDS: DOCUSATE SODIUM 100 MG CAPSULE PO SCH ×2 (09:29→16:17)
[2018-02-03] MEDS: MULTIVITAMINS WITH MINERALS, THERAPEUTIC TABLET PO SCH (09:29)
[2018-02-03] MEDS: BENZTROPINE MESYLATE 2 MG TABLET PO SCH ×2 (09:29→16:17)
[2018-02-03] MEDS: HALOPERIDOL 5 MG TABLET PO PRN (16:17)
[2018-02-03] MEDS: TraMADol HCL 50 MG TABLET PO PRN (16:17)
[2018-02-03 16:37] VITALS: BP 100/66
[2018-02-03] MEDS: TraZODone HCL 100 MG TABLET PO SCH (20:43)
[2018-02-04] MEDS: LEVOTHYROXINE SODIUM 75 MCG TABLET PO SCH (06:00)
[2018-02-04] MEDS: PANTOPRAZOLE SODIUM 40 MG DR TABLET PO SCH (06:00)
[2018-02-04] MEDS: NYSTATIN 15 GM POWDER BOTTLE TP SCH ×2 (08:09→16:41)
[2018-02-04] MEDS: MUPIROCIN CALCIUM 2% 22 GM OINTMENT NASAL SCH ×2 (08:09→16:41)
[2018-02-04] MEDS: MEGESTROL ACETATE 400 MG/10 ML SUSPENSION UDCUP PO SCH ×2 (08:09→16:40)
[2018-02-04] MEDS: DOCUSATE SODIUM 100 MG CAPSULE PO SCH ×2 (08:10→16:41)
[2018-02-04] MEDS: VALPROIC ACID 250 MG CAPSULE PO SCH ×2 (08:10→16:41)
[2018-02-04] MEDS: RisperiDONE CONC 3 MG/3 ML SOLUTION ORAL.SYG PO SCH ×2 (08:10→16:40)
[2018-02-04] MEDS: MULTIVITAMINS WITH MINERALS, THERAPEUTIC TABLET PO SCH (08:10)
[2018-02-04 08:13] VITALS: BP 123/57
[2018-02-04] MEDS: BENZTROPINE MESYLATE 2 MG TABLET PO SCH ×2 (08:34→16:41)
[2018-02-04] MEDS: HALOPERIDOL 5 MG TABLET PO PRN ×2 (09:19→16:41)
[2018-02-04 16:23] VITALS: BP 102/55
[2018-02-04] MEDS: TraZODone HCL 100 MG TABLET PO SCH (20:25)
[2018-02-05] MEDS: LEVOTHYROXINE SODIUM 75 MCG TABLET PO SCH (06:23)
[2018-02-05] MEDS: PANTOPRAZOLE SODIUM 40 MG DR TABLET PO SCH (06:23)
[2018-02-05 08:15] VITALS: BP 116/71
[2018-02-05] MEDS: MUPIROCIN CALCIUM 2% 22 GM OINTMENT NASAL SCH (08:41)
[2018-02-05] MEDS: DOCUSATE SODIUM 100 MG CAPSULE PO SCH ×2 (08:42→16:46)
[2018-02-05] MEDS: BENZTROPINE MESYLATE 2 MG TABLET PO SCH ×2 (08:42→16:48)
[2018-02-05] MEDS: MULTIVITAMINS WITH MINERALS, THERAPEUTIC TABLET PO SCH (08:42)
[2018-02-05] MEDS: VALPROIC ACID 250 MG CAPSULE PO SCH ×2 (08:42→16:46)
[2018-02-05] MEDS: NYSTATIN 15 GM POWDER BOTTLE TP SCH ×2 (08:42→16:49)
[2018-02-05] MEDS: MEGESTROL ACETATE 400 MG/10 ML SUSPENSION UDCUP PO SCH ×2 (08:42→16:47)
[2018-02-05] MEDS: RisperiDONE CONC 3 MG/3 ML SOLUTION ORAL.SYG PO SCH ×2 (08:43→16:48)
[2018-02-05] MEDS ORDERED: CALAMINE/ZINC OXIDE 177 ML LOTION TP PRN (10:45)
[2018-02-05 16:07] VITALS: BP 138/100
[2018-02-05] MEDS: HALOPERIDOL 5 MG TABLET PO PRN (16:46)
[2018-02-05] MEDS: TraZODone HCL 100 MG TABLET PO SCH (20:29)
[2018-02-06 05:53] VITALS: BP 119/79
[2018-02-06] MEDS: PANTOPRAZOLE SODIUM 40 MG DR TABLET PO SCH (06:04)
[2018-02-06] MEDS: LEVOTHYROXINE SODIUM 75 MCG TABLET PO SCH (06:04)
[2018-02-06] MEDS: DOCUSATE SODIUM 100 MG CAPSULE PO SCH ×2 (08:14→16:47)
[2018-02-06] MEDS: VALPROIC ACID 250 MG CAPSULE PO SCH ×2 (08:14→16:47)
[2018-02-06] MEDS: MULTIVITAMINS WITH MINERALS, THERAPEUTIC TABLET PO SCH (08:14)
[2018-02-06] MEDS: RisperiDONE CONC 3 MG/3 ML SOLUTION ORAL.SYG PO SCH ×2 (08:14→16:46)
[2018-02-06] MEDS: BENZTROPINE MESYLATE 2 MG TABLET PO SCH ×2 (08:14→16:46)
[2018-02-06] MEDS: MEGESTROL ACETATE 400 MG/10 ML SUSPENSION UDCUP PO SCH ×2 (08:14→16:47)
[2018-02-06] MEDS: NYSTATIN 15 GM POWDER BOTTLE TP SCH ×2 (08:15→16:47)
[2018-02-06 08:23] VITALS: BP 112/71
[2018-02-06 10:43] VITALS: BP 114/76
[2018-02-06] MEDS: TraMADol HCL 50 MG TABLET PO PRN (10:43)
[2018-02-06] MEDS: METHYL SALICYLATE/MENTHOL 85 GM CREAM TP PRN (10:45)
[2018-02-06 16:04] VITALS: BP 125/75
[2018-02-06] MEDS: TraZODone HCL 100 MG TABLET PO SCH (20:37)
[2018-02-07 02:00] VITALS: BP 120/74
[2018-02-07] MEDS: PANTOPRAZOLE SODIUM 40 MG DR TABLET PO SCH (06:22)
[2018-02-07] MEDS: LEVOTHYROXINE SODIUM 75 MCG TABLET PO SCH (06:22)
[2018-02-07] MEDS: NYSTATIN 15 GM POWDER BOTTLE TP SCH ×2 (08:05→16:14)
[2018-02-07] MEDS: DOCUSATE SODIUM 100 MG CAPSULE PO SCH ×2 (08:05→16:13)
[2018-02-07] MEDS: MEGESTROL ACETATE 400 MG/10 ML SUSPENSION UDCUP PO SCH ×2 (08:05→16:14)
[2018-02-07] MEDS: MULTIVITAMINS WITH MINERALS, THERAPEUTIC TABLET PO SCH (08:05)
[2018-02-07 08:06] VITALS: BP 113/71
[2018-02-07] MEDS: BENZTROPINE MESYLATE 2 MG TABLET PO SCH ×2 (08:06→16:13)
[2018-02-07] MEDS: VALPROIC ACID 250 MG CAPSULE PO SCH ×2 (08:06→16:13)
[2018-02-07] MEDS: RisperiDONE CONC 3 MG/3 ML SOLUTION ORAL.SYG PO SCH ×2 (08:06→16:14)
[2018-02-07 09:45] VITALS: BP 118/72
[2018-02-07] MEDS: TraMADol HCL 50 MG TABLET PO PRN (09:45)
[2018-02-07 10:45] VITALS: BP 121/82
[2018-02-07 16:17] VITALS: BP 149/77
[2018-02-07] MEDS: TraZODone HCL 100 MG TABLET PO SCH (20:20)
[2018-02-08 03:52] VITALS: BP 125/77
[2018-02-08] MEDS: PANTOPRAZOLE SODIUM 40 MG DR TABLET PO SCH (06:17)
[2018-02-08] MEDS: LEVOTHYROXINE SODIUM 75 MCG TABLET PO SCH (06:17)
[2018-02-08 08:20] VITALS: BP 154/58
[2018-02-08] MEDS: NYSTATIN 15 GM POWDER BOTTLE TP SCH ×2 (09:00→17:00)
[2018-02-08] MEDS: BENZTROPINE MESYLATE 2 MG TABLET PO SCH ×2 (09:10→16:10)
[2018-02-08] MEDS: DOCUSATE SODIUM 100 MG CAPSULE PO SCH ×2 (09:11→16:11)
[2018-02-08] MEDS: MULTIVITAMINS WITH MINERALS, THERAPEUTIC TABLET PO SCH (09:11)
[2018-02-08] MEDS: RisperiDONE CONC 3 MG/3 ML SOLUTION ORAL.SYG PO SCH ×2 (09:12→17:27)
[2018-02-08] MEDS: MEGESTROL ACETATE 400 MG/10 ML SUSPENSION UDCUP PO SCH ×2 (09:12→17:27)
[2018-02-08] MEDS: VALPROIC ACID 250 MG CAPSULE PO SCH ×2 (09:52→16:11)
[2018-02-08] MEDS: HALOPERIDOL 5 MG TABLET PO PRN (11:06)
[2018-02-08 13:55] VITALS: BP 121/79
[2018-02-08] MEDS: TraMADol HCL 50 MG TABLET PO PRN (13:55)
[2018-02-08 15:05] VITALS: BP 123/70
[2018-02-08 16:30] VITALS: BP 128/68
[2018-02-08] MEDS: TraZODone HCL 100 MG TABLET PO SCH (20:16)
[2018-02-09] MEDS: LEVOTHYROXINE SODIUM 75 MCG TABLET PO SCH (06:21)
[2018-02-09] MEDS: PANTOPRAZOLE SODIUM 40 MG DR TABLET PO SCH (06:21)
[2018-02-09 07:07] VITALS: BP 118/72
[2018-02-09 08:05] VITALS: BP 132/63
[2018-02-09] MEDS: RisperiDONE CONC 3 MG/3 ML SOLUTION ORAL.SYG PO SCH ×2 (08:11→16:29)
[2018-02-09] MEDS: NYSTATIN 15 GM POWDER BOTTLE TP SCH ×2 (08:11→16:30)
[2018-02-09] MEDS: MEGESTROL ACETATE 400 MG/10 ML SUSPENSION UDCUP PO SCH ×2 (08:11→16:29)
[2018-02-09] MEDS: DOCUSATE SODIUM 100 MG CAPSULE PO SCH ×2 (08:12→16:29)
[2018-02-09] MEDS: BENZTROPINE MESYLATE 2 MG TABLET PO SCH ×2 (08:12→16:29)
[2018-02-09] MEDS: MULTIVITAMINS WITH MINERALS, THERAPEUTIC TABLET PO SCH (08:12)
[2018-02-09] MEDS: VALPROIC ACID 250 MG CAPSULE PO SCH ×2 (08:12→16:26)
[2018-02-09] MEDS: HALOPERIDOL 5 MG TABLET PO PRN (14:29)
[2018-02-09 16:00] VITALS: BP 116/76
[2018-02-09] MEDS: TraZODone HCL 100 MG TABLET PO SCH (20:05)
[2018-02-09] MEDS: METHYL SALICYLATE/MENTHOL 85 GM CREAM TP PRN (20:45)
[2018-02-10] MEDS: PANTOPRAZOLE SODIUM 40 MG DR TABLET PO SCH (06:30)
[2018-02-10] MEDS: LEVOTHYROXINE SODIUM 75 MCG TABLET PO SCH (06:30)
[2018-02-10 06:36] VITALS: BP 121/75
[2018-02-10] MEDS: NYSTATIN 15 GM POWDER BOTTLE TP SCH ×2 (08:07→16:02)
[2018-02-10] MEDS: BENZTROPINE MESYLATE 2 MG TABLET PO SCH ×2 (08:08→16:01)
[2018-02-10] MEDS: VALPROIC ACID 250 MG CAPSULE PO SCH ×2 (08:08→16:02)
[2018-02-10] MEDS: MEGESTROL ACETATE 400 MG/10 ML SUSPENSION UDCUP PO SCH ×2 (08:08→16:02)
[2018-02-10] MEDS: MULTIVITAMINS WITH MINERALS, THERAPEUTIC TABLET PO SCH (08:08)
[2018-02-10] MEDS: RisperiDONE CONC 3 MG/3 ML SOLUTION ORAL.SYG PO SCH ×2 (08:08→16:02)
[2018-02-10] MEDS: DOCUSATE SODIUM 100 MG CAPSULE PO SCH ×2 (08:08→16:01)
[2018-02-10 08:22] VITALS: BP 100/65
[2018-02-10] MEDS: HALOPERIDOL 5 MG TABLET PO PRN (16:02)
[2018-02-10 16:12] VITALS: BP 120/81
[2018-02-10] MEDS: TraZODone HCL 100 MG TABLET PO SCH (20:07)
[2018-02-11] MEDS: PANTOPRAZOLE SODIUM 40 MG DR TABLET PO SCH (06:37)
[2018-02-11] MEDS: LEVOTHYROXINE SODIUM 75 MCG TABLET PO SCH (06:37)
[2018-02-11 06:51] VITALS: BP 118/72
[2018-02-11] MEDS: VALPROIC ACID 250 MG CAPSULE PO SCH ×2 (08:00→16:22)
[2018-02-11] MEDS: DOCUSATE SODIUM 100 MG CAPSULE PO SCH ×2 (08:00→16:22)
[2018-02-11] MEDS: MULTIVITAMINS WITH MINERALS, THERAPEUTIC TABLET PO SCH (08:00)
[2018-02-11] MEDS: RisperiDONE CONC 3 MG/3 ML SOLUTION ORAL.SYG PO SCH ×2 (08:00→16:23)
[2018-02-11] MEDS: NYSTATIN 15 GM POWDER BOTTLE TP SCH ×2 (08:00→16:21)
[2018-02-11] MEDS: MEGESTROL ACETATE 400 MG/10 ML SUSPENSION UDCUP PO SCH ×2 (08:00→16:22)
[2018-02-11] MEDS: BENZTROPINE MESYLATE 2 MG TABLET PO SCH ×2 (08:00→16:21)
[2018-02-11 08:08] VITALS: BP 114/62
[2018-02-11] MEDS: HALOPERIDOL 5 MG TABLET PO PRN ×2 (09:04→16:25)
[2018-02-11] MEDS: METHYL SALICYLATE/MENTHOL 85 GM CREAM TP PRN (10:23)
[2018-02-11 16:12] VITALS: BP 100/67
[2018-02-11] MEDS: TraZODone HCL 100 MG TABLET PO SCH (20:12)
[2018-02-12] MEDS: PANTOPRAZOLE SODIUM 40 MG DR TABLET PO SCH (06:30)
[2018-02-12] MEDS: LEVOTHYROXINE SODIUM 75 MCG TABLET PO SCH (06:30)
[2018-02-12] MEDS: MEGESTROL ACETATE 400 MG/10 ML SUSPENSION UDCUP PO SCH ×2 (08:15→16:10)
[2018-02-12] MEDS: BENZTROPINE MESYLATE 2 MG TABLET PO SCH ×2 (08:15→16:06)
[2018-02-12] MEDS: MULTIVITAMINS WITH MINERALS, THERAPEUTIC TABLET PO SCH (08:15)
[2018-02-12] MEDS: RisperiDONE CONC 3 MG/3 ML SOLUTION ORAL.SYG PO SCH ×2 (08:15→16:06)
[2018-02-12] MEDS: DOCUSATE SODIUM 100 MG CAPSULE PO SCH ×2 (08:15→16:10)
[2018-02-12] MEDS: VALPROIC ACID 250 MG CAPSULE PO SCH ×2 (08:16→16:10)
[2018-02-12] MEDS: NYSTATIN 15 GM POWDER BOTTLE TP SCH ×2 (08:16→16:05)
[2018-02-12 10:47] VITALS: BP 101/62
[2018-02-12 16:06] VITALS: BP 115/60
[2018-02-12] MEDS: HALOPERIDOL 5 MG TABLET PO PRN (16:10)
[2018-02-12] MEDS: METHYL SALICYLATE/MENTHOL 85 GM CREAM TP PRN (16:13)
[2018-02-12] MEDS: TraZODone HCL 100 MG TABLET PO SCH (20:18)
[2018-02-13] MEDS: PANTOPRAZOLE SODIUM 40 MG DR TABLET PO SCH (07:00)
[2018-02-13] MEDS: LEVOTHYROXINE SODIUM 75 MCG TABLET PO SCH (07:01)
[2018-02-13 07:06] VITALS: BP 117/79
[2018-02-13 08:19] VITALS: BP 119/83
[2018-02-13] MEDS: MULTIVITAMINS WITH MINERALS, THERAPEUTIC TABLET PO SCH (08:28)
[2018-02-13] MEDS: DOCUSATE SODIUM 100 MG CAPSULE PO SCH ×2 (08:29→16:05)
[2018-02-13] MEDS: BENZTROPINE MESYLATE 2 MG TABLET PO SCH ×2 (08:29→16:04)
[2018-02-13] MEDS: RisperiDONE CONC 3 MG/3 ML SOLUTION ORAL.SYG PO SCH ×2 (08:29→16:04)
[2018-02-13] MEDS: VALPROIC ACID 250 MG CAPSULE PO SCH ×2 (08:30→16:04)
[2018-02-13] MEDS: MEGESTROL ACETATE 400 MG/10 ML SUSPENSION UDCUP PO SCH ×2 (08:30→16:04)
[2018-02-13] MEDS: NYSTATIN 15 GM POWDER BOTTLE TP SCH ×2 (08:31→16:09)
[2018-02-13] MEDS: METHYL SALICYLATE/MENTHOL 85 GM CREAM TP PRN (10:11)
[2018-02-13] MEDS: HALOPERIDOL 5 MG TABLET PO PRN (10:52)
[2018-02-13] MEDS: DOCOSANOL 10% 2 GM CREAM TP SCH ×4 (11:32→22:29)
[2018-02-13] MEDS: ASCORBIC ACID 500 MG TABLET PO SCH (11:32)
[2018-02-13] MEDS: NEOMYCIN/BACITRACIN/POLYMYXIN B 30 GM OINTMENT TP SCH ×2 (11:33→16:05)
[2018-02-13] MEDS: ZINC SULFATE 220 MG CAPSULE PO SCH (11:33)
[2018-02-13 16:11] VITALS: BP 122/87
[2018-02-13] MEDS: TraZODone HCL 100 MG TABLET PO SCH (20:10)
[2018-02-14 05:53] VITALS: BP 116/76
[2018-02-14] MEDS: PANTOPRAZOLE SODIUM 40 MG DR TABLET PO SCH (06:15)
[2018-02-14] MEDS: LEVOTHYROXINE SODIUM 75 MCG TABLET PO SCH (06:15)
[2018-02-14] MEDS: DOCOSANOL 10% 2 GM CREAM TP SCH ×5 (06:15→22:21)
[2018-02-14 08:10] VITALS: BP 104/60
[2018-02-14] MEDS: MEGESTROL ACETATE 400 MG/10 ML SUSPENSION UDCUP PO SCH ×2 (08:47→17:21)
[2018-02-14] MEDS: ASCORBIC ACID 500 MG TABLET PO SCH (08:47)
[2018-02-14] MEDS: RisperiDONE CONC 3 MG/3 ML SOLUTION ORAL.SYG PO SCH ×2 (08:47→17:21)
[2018-02-14] MEDS: BENZTROPINE MESYLATE 2 MG TABLET PO SCH ×2 (08:47→17:00)
[2018-02-14] MEDS: ZINC SULFATE 220 MG CAPSULE PO SCH (08:47)
[2018-02-14] MEDS: DOCUSATE SODIUM 100 MG CAPSULE PO SCH ×2 (08:48→17:00)
[2018-02-14] MEDS: NYSTATIN 15 GM POWDER BOTTLE TP SCH ×2 (08:48→17:00)
[2018-02-14] MEDS: MULTIVITAMINS WITH MINERALS, THERAPEUTIC TABLET PO SCH (08:48)
[2018-02-14] MEDS: VALPROIC ACID 250 MG CAPSULE PO SCH ×2 (08:48→17:00)
[2018-02-14] MEDS: NEOMYCIN/BACITRACIN/POLYMYXIN B 30 GM OINTMENT TP SCH ×2 (08:49→17:00)
[2018-02-14] MEDS: TraZODone HCL 100 MG TABLET PO SCH (20:09)
[2018-02-15 05:27] VITALS: BP 117/66
[2018-02-15] MEDS: LEVOTHYROXINE SODIUM 75 MCG TABLET PO SCH (06:27)
[2018-02-15] MEDS: PANTOPRAZOLE SODIUM 40 MG DR TABLET PO SCH (06:27)
[2018-02-15] MEDS: DOCOSANOL 10% 2 GM CREAM TP SCH ×5 (06:27→21:09)
[2018-02-15] MEDS: RisperiDONE CONC 3 MG/3 ML SOLUTION ORAL.SYG PO SCH ×2 (08:16→17:01)
[2018-02-15] MEDS: NYSTATIN 15 GM POWDER BOTTLE TP SCH ×2 (08:16→17:01)
[2018-02-15] MEDS: ASCORBIC ACID 500 MG TABLET PO SCH (08:17)
[2018-02-15] MEDS: NEOMYCIN/BACITRACIN/POLYMYXIN B 30 GM OINTMENT TP SCH ×2 (08:17→17:01)
[2018-02-15] MEDS: ZINC SULFATE 220 MG CAPSULE PO SCH (08:17)
[2018-02-15] MEDS: DOCUSATE SODIUM 100 MG CAPSULE PO SCH ×2 (08:17→17:01)
[2018-02-15] MEDS: MEGESTROL ACETATE 400 MG/10 ML SUSPENSION UDCUP PO SCH ×2 (08:17→16:59)
[2018-02-15] MEDS: MULTIVITAMINS WITH MINERALS, THERAPEUTIC TABLET PO SCH (08:17)
[2018-02-15] MEDS: BENZTROPINE MESYLATE 2 MG TABLET PO SCH ×2 (08:17→17:01)
[2018-02-15] MEDS: VALPROIC ACID 250 MG CAPSULE PO SCH ×2 (08:17→17:00)
[2018-02-15 08:22] VITALS: BP 103/52
[2018-02-15] MEDS: HALOPERIDOL 5 MG TABLET PO PRN (20:27)
[2018-02-15] MEDS: TraZODone HCL 100 MG TABLET PO SCH (20:27)
[2018-02-16] MEDS: DOCOSANOL 10% 2 GM CREAM TP SCH ×5 (06:29→21:13)
[2018-02-16] MEDS: LEVOTHYROXINE SODIUM 75 MCG TABLET PO SCH (06:29)
[2018-02-16] MEDS: PANTOPRAZOLE SODIUM 40 MG DR TABLET PO SCH (06:29)
[2018-02-16 08:10] VITALS: BP 105/58
[2018-02-16] MEDS: RisperiDONE CONC 3 MG/3 ML SOLUTION ORAL.SYG PO SCH ×2 (08:24→16:39)
[2018-02-16] MEDS: ZINC SULFATE 220 MG CAPSULE PO SCH (08:24)
[2018-02-16] MEDS: MEGESTROL ACETATE 400 MG/10 ML SUSPENSION UDCUP PO SCH ×2 (08:24→16:39)
[2018-02-16] MEDS: ASCORBIC ACID 500 MG TABLET PO SCH (08:24)
[2018-02-16] MEDS: NEOMYCIN/BACITRACIN/POLYMYXIN B 30 GM OINTMENT TP SCH ×2 (08:24→16:40)
[2018-02-16] MEDS: VALPROIC ACID 250 MG CAPSULE PO SCH ×2 (08:25→16:39)
[2018-02-16] MEDS: BENZTROPINE MESYLATE 2 MG TABLET PO SCH ×2 (08:25→16:39)
[2018-02-16] MEDS: NYSTATIN 15 GM POWDER BOTTLE TP SCH ×2 (08:25→16:39)
[2018-02-16] MEDS: DOCUSATE SODIUM 100 MG CAPSULE PO SCH ×2 (08:25→16:39)
[2018-02-16] MEDS: MULTIVITAMINS WITH MINERALS, THERAPEUTIC TABLET PO SCH (08:25)
[2018-02-16 16:14] VITALS: BP 107/61
[2018-02-16] MEDS: TraZODone HCL 100 MG TABLET PO SCH (20:11)
[2018-02-17] MEDS: DOCOSANOL 10% 2 GM CREAM TP SCH ×5 (06:22→22:15)
[2018-02-17] MEDS: LEVOTHYROXINE SODIUM 75 MCG TABLET PO SCH (06:23)
[2018-02-17] MEDS: PANTOPRAZOLE SODIUM 40 MG DR TABLET PO SCH (06:23)
[2018-02-17 06:44] VITALS: BP 110/63
[2018-02-17 08:58] VITALS: BP 128/78
[2018-02-17] MEDS: ASCORBIC ACID 500 MG TABLET PO SCH (09:12)
[2018-02-17] MEDS: ZINC SULFATE 220 MG CAPSULE PO SCH (09:12)
[2018-02-17] MEDS: MULTIVITAMINS WITH MINERALS, THERAPEUTIC TABLET PO SCH (09:12)
[2018-02-17] MEDS: DOCUSATE SODIUM 100 MG CAPSULE PO SCH ×2 (09:12→16:10)
[2018-02-17] MEDS: RisperiDONE CONC 3 MG/3 ML SOLUTION ORAL.SYG PO SCH ×2 (09:13→16:09)
[2018-02-17] MEDS: VALPROIC ACID 250 MG CAPSULE PO SCH ×2 (09:13→16:27)
[2018-02-17] MEDS: MEGESTROL ACETATE 400 MG/10 ML SUSPENSION UDCUP PO SCH ×2 (09:13→16:09)
[2018-02-17] MEDS: NYSTATIN 15 GM POWDER BOTTLE TP SCH ×2 (09:14→17:23)
[2018-02-17] MEDS: NEOMYCIN/BACITRACIN/POLYMYXIN B 30 GM OINTMENT TP SCH ×2 (09:14→17:23)
[2018-02-17] MEDS: BENZTROPINE MESYLATE 2 MG TABLET PO SCH ×2 (09:14→16:10)
[2018-02-17 17:19] VITALS: BP 121/74
[2018-02-17] MEDS: TraZODone HCL 100 MG TABLET PO SCH (20:46)
[2018-02-18 05:17] VITALS: BP 115/70
[2018-02-18] MEDS: DOCOSANOL 10% 2 GM CREAM TP SCH ×5 (06:00→21:26)
[2018-02-18] MEDS: PANTOPRAZOLE SODIUM 40 MG DR TABLET PO SCH (06:19)
[2018-02-18] MEDS: LEVOTHYROXINE SODIUM 75 MCG TABLET PO SCH (06:19)
[2018-02-18 08:13] VITALS: BP 100/57
[2018-02-18] MEDS: ZINC SULFATE 220 MG CAPSULE PO SCH (08:43)
[2018-02-18] MEDS: RisperiDONE CONC 3 MG/3 ML SOLUTION ORAL.SYG PO SCH ×2 (08:43→16:31)
[2018-02-18] MEDS: VALPROIC ACID 250 MG CAPSULE PO SCH ×2 (08:43→16:31)
[2018-02-18] MEDS: BENZTROPINE MESYLATE 2 MG TABLET PO SCH ×2 (08:43→16:31)
[2018-02-18] MEDS: MEGESTROL ACETATE 400 MG/10 ML SUSPENSION UDCUP PO SCH ×2 (08:43→16:31)
[2018-02-18] MEDS: ASCORBIC ACID 500 MG TABLET PO SCH (08:43)
[2018-02-18] MEDS: MULTIVITAMINS WITH MINERALS, THERAPEUTIC TABLET PO SCH (08:43)
[2018-02-18] MEDS: DOCUSATE SODIUM 100 MG CAPSULE PO SCH ×2 (08:43→16:32)
[2018-02-18] MEDS: NYSTATIN 15 GM POWDER BOTTLE TP SCH ×2 (08:44→16:34)
[2018-02-18] MEDS: NEOMYCIN/BACITRACIN/POLYMYXIN B 30 GM OINTMENT TP SCH ×2 (08:47→16:57)
[2018-02-18 16:03] VITALS: BP 124/73
[2018-02-18] MEDS: TraZODone HCL 100 MG TABLET PO SCH (20:50)
[2018-02-19 06:16] VITALS: BP 125/73
[2018-02-19] MEDS: LEVOTHYROXINE SODIUM 75 MCG TABLET PO SCH (06:30)
[2018-02-19] MEDS: PANTOPRAZOLE SODIUM 40 MG DR TABLET PO SCH (06:30)
[2018-02-19] MEDS: DOCOSANOL 10% 2 GM CREAM TP SCH ×5 (06:39→21:13)
[2018-02-19 08:18] VITALS: BP 93/60
[2018-02-19] MEDS: MULTIVITAMINS WITH MINERALS, THERAPEUTIC TABLET PO SCH (08:39)
[2018-02-19] MEDS: RisperiDONE CONC 3 MG/3 ML SOLUTION ORAL.SYG PO SCH ×2 (08:39→16:10)
[2018-02-19] MEDS: ASCORBIC ACID 500 MG TABLET PO SCH (08:39)
[2018-02-19] MEDS: BENZTROPINE MESYLATE 2 MG TABLET PO SCH ×2 (08:39→16:11)
[2018-02-19] MEDS: DOCUSATE SODIUM 100 MG CAPSULE PO SCH ×2 (08:39→16:12)
[2018-02-19] MEDS: ZINC SULFATE 220 MG CAPSULE PO SCH (08:40)
[2018-02-19] MEDS: VALPROIC ACID 250 MG CAPSULE PO SCH ×2 (08:40→16:11)
[2018-02-19] MEDS: MEGESTROL ACETATE 400 MG/10 ML SUSPENSION UDCUP PO SCH ×2 (08:40→16:09)
[2018-02-19] MEDS: NYSTATIN 15 GM POWDER BOTTLE TP SCH ×2 (08:41→16:17)
[2018-02-19] MEDS: NEOMYCIN/BACITRACIN/POLYMYXIN B 30 GM OINTMENT TP SCH ×2 (08:42→16:17)
[2018-02-19 16:26] VITALS: BP 116/74
[2018-02-19] MEDS: TraZODone HCL 100 MG TABLET PO SCH (20:33)
[2018-02-20] MEDS: DOCOSANOL 10% 2 GM CREAM TP SCH ×5 (06:00→21:45)
[2018-02-20] MEDS: PANTOPRAZOLE SODIUM 40 MG DR TABLET PO SCH (06:30)
[2018-02-20] MEDS: LEVOTHYROXINE SODIUM 75 MCG TABLET PO SCH (06:30)
[2018-02-20 08:27] VITALS: BP 108/70
[2018-02-20] MEDS: ZINC SULFATE 220 MG CAPSULE PO SCH (08:29)
[2018-02-20] MEDS: MEGESTROL ACETATE 400 MG/10 ML SUSPENSION UDCUP PO SCH ×2 (08:35→16:10)
[2018-02-20] MEDS: VALPROIC ACID 250 MG CAPSULE PO SCH ×2 (08:36→16:11)
[2018-02-20] MEDS: BENZTROPINE MESYLATE 2 MG TABLET PO SCH ×2 (08:36→16:11)
[2018-02-20] MEDS: MULTIVITAMINS WITH MINERALS, THERAPEUTIC TABLET PO SCH (08:36)
[2018-02-20] MEDS: ASCORBIC ACID 500 MG TABLET PO SCH (08:36)
[2018-02-20] MEDS: DOCUSATE SODIUM 100 MG CAPSULE PO SCH ×2 (08:36→17:09)
[2018-02-20] MEDS: NYSTATIN 15 GM POWDER BOTTLE TP SCH ×2 (08:37→16:11)
[2018-02-20] MEDS: RisperiDONE CONC 3 MG/3 ML SOLUTION ORAL.SYG PO SCH ×2 (08:37→16:10)
[2018-02-20] MEDS: NEOMYCIN/BACITRACIN/POLYMYXIN B 30 GM OINTMENT TP SCH ×2 (08:37→16:11)
[2018-02-20] MEDS: HALOPERIDOL 5 MG TABLET PO PRN (16:11)
[2018-02-20] MEDS: TraZODone HCL 100 MG TABLET PO SCH (20:20)
[2018-02-21 02:27] VITALS: BP 112/68
[2018-02-21] MEDS: DOCOSANOL 10% 2 GM CREAM TP SCH ×5 (06:00→21:22)
[2018-02-21] MEDS: LEVOTHYROXINE SODIUM 75 MCG TABLET PO SCH (06:21)
[2018-02-21] MEDS: PANTOPRAZOLE SODIUM 40 MG DR TABLET PO SCH (06:21)
[2018-02-21] MEDS: ASCORBIC ACID 500 MG TABLET PO SCH (08:37)
[2018-02-21] MEDS: ZINC SULFATE 220 MG CAPSULE PO SCH (08:37)
[2018-02-21] MEDS: VALPROIC ACID 250 MG CAPSULE PO SCH ×2 (08:37→16:51)
[2018-02-21] MEDS: DOCUSATE SODIUM 100 MG CAPSULE PO SCH ×2 (08:37→16:52)
[2018-02-21] MEDS: MULTIVITAMINS WITH MINERALS, THERAPEUTIC TABLET PO SCH (08:37)
[2018-02-21] MEDS: MEGESTROL ACETATE 400 MG/10 ML SUSPENSION UDCUP PO SCH ×2 (08:38→16:52)
[2018-02-21] MEDS: BENZTROPINE MESYLATE 2 MG TABLET PO SCH ×2 (08:38→16:51)
[2018-02-21] MEDS: NEOMYCIN/BACITRACIN/POLYMYXIN B 30 GM OINTMENT TP SCH ×2 (08:39→16:52)
[2018-02-21] MEDS: NYSTATIN 15 GM POWDER BOTTLE TP SCH ×2 (08:40→16:52)
[2018-02-21] MEDS: RisperiDONE CONC 3 MG/3 ML SOLUTION ORAL.SYG PO SCH ×2 (09:00→16:52)
[2018-02-21 16:07] VITALS: BP 113/68
[2018-02-21] MEDS: HALOPERIDOL 5 MG TABLET PO PRN (16:24)
[2018-02-21] MEDS: TraZODone HCL 100 MG TABLET PO SCH (20:04)
[2018-02-22] MEDS: PANTOPRAZOLE SODIUM 40 MG DR TABLET PO SCH (06:31)
[2018-02-22] MEDS: LEVOTHYROXINE SODIUM 75 MCG TABLET PO SCH (06:31)
[2018-02-22] MEDS: DOCOSANOL 10% 2 GM CREAM TP SCH ×5 (06:31→21:22)
[2018-02-22 08:21] VITALS: BP 104/62
[2018-02-22] MEDS: RisperiDONE CONC 3 MG/3 ML SOLUTION ORAL.SYG PO SCH ×2 (08:25→16:52)
[2018-02-22] MEDS: DOCUSATE SODIUM 100 MG CAPSULE PO SCH ×2 (08:25→16:53)
[2018-02-22] MEDS: MEGESTROL ACETATE 400 MG/10 ML SUSPENSION UDCUP PO SCH ×2 (08:25→16:53)
[2018-02-22] MEDS: BENZTROPINE MESYLATE 2 MG TABLET PO SCH ×2 (08:25→16:53)
[2018-02-22] MEDS: MULTIVITAMINS WITH MINERALS, THERAPEUTIC TABLET PO SCH (08:25)
[2018-02-22] MEDS: ASCORBIC ACID 500 MG TABLET PO SCH (08:25)
[2018-02-22] MEDS: ZINC SULFATE 220 MG CAPSULE PO SCH (08:25)
[2018-02-22] MEDS: NEOMYCIN/BACITRACIN/POLYMYXIN B 30 GM OINTMENT TP SCH ×2 (08:26→16:53)
[2018-02-22] MEDS: NYSTATIN 15 GM POWDER BOTTLE TP SCH ×2 (08:26→16:53)
[2018-02-22] MEDS: VALPROIC ACID 250 MG CAPSULE PO SCH ×2 (09:02→16:53)
[2018-02-22 16:15] VITALS: BP 107/75
[2018-02-22] MEDS: HALOPERIDOL 5 MG TABLET PO PRN (16:27)
[2018-02-22] MEDS: TraZODone HCL 100 MG TABLET PO SCH (20:25)
[2018-02-23 03:45] VITALS: BP 128/76
[2018-02-23] MEDS: DOCOSANOL 10% 2 GM CREAM TP SCH ×5 (06:20→21:08)
[2018-02-23] MEDS: PANTOPRAZOLE SODIUM 40 MG DR TABLET PO SCH (06:22)
[2018-02-23] MEDS: LEVOTHYROXINE SODIUM 75 MCG TABLET PO SCH (06:22)
[2018-02-23 08:21] VITALS: BP 109/65
[2018-02-23] MEDS: VALPROIC ACID 250 MG CAPSULE PO SCH ×2 (08:44→16:26)
[2018-02-23] MEDS: ASCORBIC ACID 500 MG TABLET PO SCH (08:45)
[2018-02-23] MEDS: DOCUSATE SODIUM 100 MG CAPSULE PO SCH ×2 (08:45→16:26)
[2018-02-23] MEDS: MULTIVITAMINS WITH MINERALS, THERAPEUTIC TABLET PO SCH (08:45)
[2018-02-23] MEDS: NEOMYCIN/BACITRACIN/POLYMYXIN B 30 GM OINTMENT TP SCH (08:46)
[2018-02-23] MEDS: NYSTATIN 15 GM POWDER BOTTLE TP SCH ×2 (09:55→16:26)
[2018-02-23] MEDS: BENZTROPINE MESYLATE 2 MG TABLET PO SCH ×2 (09:55→16:26)
[2018-02-23] MEDS: MEGESTROL ACETATE 400 MG/10 ML SUSPENSION UDCUP PO SCH ×2 (10:21→16:25)
[2018-02-23] MEDS: RisperiDONE CONC 3 MG/3 ML SOLUTION ORAL.SYG PO SCH ×2 (10:21→16:25)
[2018-02-23] MEDS: ZINC SULFATE 220 MG CAPSULE PO SCH (10:22)
[2018-02-23 16:18] VITALS: BP 110/74
[2018-02-23] MEDS: HALOPERIDOL 5 MG TABLET PO PRN (20:45)
[2018-02-23] MEDS: TraZODone HCL 100 MG TABLET PO SCH (20:45)
[2018-02-24 05:13] VITALS: BP 104/65
[2018-02-24] MEDS: DOCOSANOL 10% 2 GM CREAM TP SCH ×5 (06:00→22:32)
[2018-02-24] MEDS: LEVOTHYROXINE SODIUM 75 MCG TABLET PO SCH (06:37)
[2018-02-24] MEDS: PANTOPRAZOLE SODIUM 40 MG DR TABLET PO SCH (06:37)
[2018-02-24 08:30] VITALS: BP 100/54
[2018-02-24] MEDS: ASCORBIC ACID 500 MG TABLET PO SCH (08:53)
[2018-02-24] MEDS: VALPROIC ACID 250 MG CAPSULE PO SCH ×2 (08:54→16:44)
[2018-02-24] MEDS: RisperiDONE CONC 3 MG/3 ML SOLUTION ORAL.SYG PO SCH ×2 (08:54→16:45)
[2018-02-24] MEDS: MULTIVITAMINS WITH MINERALS, THERAPEUTIC TABLET PO SCH (08:54)
[2018-02-24] MEDS: BENZTROPINE MESYLATE 2 MG TABLET PO SCH ×2 (08:54→16:44)
[2018-02-24] MEDS: NYSTATIN 15 GM POWDER BOTTLE TP SCH ×2 (08:54→16:45)
[2018-02-24] MEDS: ZINC SULFATE 220 MG CAPSULE PO SCH (08:54)
[2018-02-24] MEDS: MEGESTROL ACETATE 400 MG/10 ML SUSPENSION UDCUP PO SCH ×2 (08:54→16:45)
[2018-02-24] MEDS: DOCUSATE SODIUM 100 MG CAPSULE PO SCH ×2 (08:54→16:44)
[2018-02-24 16:44] VITALS: BP 120/70
[2018-02-24 20:36] VITALS: BP 122/78
[2018-02-24] MEDS: TraMADol HCL 50 MG TABLET PO PRN (20:36)
[2018-02-24] MEDS: TraZODone HCL 100 MG TABLET PO SCH (20:37)
[2018-02-25] MEDS: DOCOSANOL 10% 2 GM CREAM TP SCH ×5 (06:00→21:24)
[2018-02-25] MEDS: LEVOTHYROXINE SODIUM 75 MCG TABLET PO SCH (06:43)
[2018-02-25] MEDS: PANTOPRAZOLE SODIUM 40 MG DR TABLET PO SCH (06:43)
[2018-02-25 07:10] VITALS: BP 110/68
[2018-02-25 08:01] VITALS: BP 112/72
[2018-02-25] MEDS: MEGESTROL ACETATE 400 MG/10 ML SUSPENSION UDCUP PO SCH ×2 (09:01→16:40)
[2018-02-25] MEDS: NYSTATIN 15 GM POWDER BOTTLE TP SCH ×2 (09:01→16:40)
[2018-02-25] MEDS: RisperiDONE CONC 3 MG/3 ML SOLUTION ORAL.SYG PO SCH ×2 (09:03→16:41)
[2018-02-25] MEDS: ASCORBIC ACID 500 MG TABLET PO SCH (09:04)
[2018-02-25] MEDS: DOCUSATE SODIUM 100 MG CAPSULE PO SCH ×2 (09:04→16:40)
[2018-02-25] MEDS: VALPROIC ACID 250 MG CAPSULE PO SCH ×2 (09:04→16:40)
[2018-02-25] MEDS: MULTIVITAMINS WITH MINERALS, THERAPEUTIC TABLET PO SCH (09:05)
[2018-02-25] MEDS: ZINC SULFATE 220 MG CAPSULE PO SCH (09:05)
[2018-02-25] MEDS: BENZTROPINE MESYLATE 2 MG TABLET PO SCH ×2 (09:28→16:40)
[2018-02-25 16:00] VITALS: BP 122/63
[2018-02-25] MEDS: HALOPERIDOL 5 MG TABLET PO PRN (16:42)
[2018-02-25] MEDS: TraZODone HCL 100 MG TABLET PO SCH (20:58)
[2018-02-26] MEDS: DOCOSANOL 10% 2 GM CREAM TP SCH ×5 (06:04→23:01)
[2018-02-26] MEDS: PANTOPRAZOLE SODIUM 40 MG DR TABLET PO SCH (06:56)
[2018-02-26] MEDS: LEVOTHYROXINE SODIUM 75 MCG TABLET PO SCH (06:56)
[2018-02-26 07:25] VITALS: BP 125/78
[2018-02-26 08:01] VITALS: BP 118/76
[2018-02-26] MEDS: DOCUSATE SODIUM 100 MG CAPSULE PO SCH ×2 (08:25→16:12)
[2018-02-26] MEDS: ASCORBIC ACID 500 MG TABLET PO SCH (08:25)
[2018-02-26] MEDS: VALPROIC ACID 250 MG CAPSULE PO SCH ×2 (08:25→16:14)
[2018-02-26] MEDS: BENZTROPINE MESYLATE 2 MG TABLET PO SCH ×2 (08:25→16:12)
[2018-02-26] MEDS: MEGESTROL ACETATE 400 MG/10 ML SUSPENSION UDCUP PO SCH ×2 (08:25→16:14)
[2018-02-26] MEDS: RisperiDONE CONC 3 MG/3 ML SOLUTION ORAL.SYG PO SCH ×2 (08:25→16:12)
[2018-02-26] MEDS: MULTIVITAMINS WITH MINERALS, THERAPEUTIC TABLET PO SCH (08:25)
[2018-02-26] MEDS: ZINC SULFATE 220 MG CAPSULE PO SCH (08:25)
[2018-02-26] MEDS: NYSTATIN 15 GM POWDER BOTTLE TP SCH ×2 (08:27→17:04)
[2018-02-26 16:08] VITALS: BP 124/72
[2018-02-26] MEDS: TraZODone HCL 100 MG TABLET PO SCH (20:46)
[2018-02-27 05:06] VITALS: BP 128/80
[2018-02-27] MEDS: DOCOSANOL 10% 2 GM CREAM TP SCH ×5 (06:27→21:23)
[2018-02-27] MEDS: LEVOTHYROXINE SODIUM 75 MCG TABLET PO SCH (06:31)
[2018-02-27] MEDS: PANTOPRAZOLE SODIUM 40 MG DR TABLET PO SCH (06:31)
[2018-02-27 08:15] VITALS: BP 106/53
[2018-02-27] MEDS: VALPROIC ACID 250 MG CAPSULE PO SCH ×2 (09:27→16:09)
[2018-02-27] MEDS: ASCORBIC ACID 500 MG TABLET PO SCH (09:27)
[2018-02-27] MEDS: ZINC SULFATE 220 MG CAPSULE PO SCH (09:27)
[2018-02-27] MEDS: BENZTROPINE MESYLATE 2 MG TABLET PO SCH ×2 (09:27→16:10)
[2018-02-27] MEDS: MULTIVITAMINS WITH MINERALS, THERAPEUTIC TABLET PO SCH (09:27)
[2018-02-27] MEDS: MEGESTROL ACETATE 400 MG/10 ML SUSPENSION UDCUP PO SCH ×2 (09:28→16:09)
[2018-02-27] MEDS: DOCUSATE SODIUM 100 MG CAPSULE PO SCH ×2 (09:28→16:10)
[2018-02-27] MEDS: NYSTATIN 15 GM POWDER BOTTLE TP SCH ×2 (09:29→16:10)
[2018-02-27] MEDS: RisperiDONE CONC 3 MG/3 ML SOLUTION ORAL.SYG PO SCH ×2 (09:29→16:10)
[2018-02-27 16:11] VITALS: BP 107/78
[2018-02-27] MEDS: TraZODone HCL 100 MG TABLET PO SCH (20:35)
[2018-02-28 06:26] VITALS: BP 110/80
[2018-02-28] MEDS: DOCOSANOL 10% 2 GM CREAM TP SCH ×5 (07:21→21:22)
[2018-02-28] MEDS: LEVOTHYROXINE SODIUM 75 MCG TABLET PO SCH (07:21)
[2018-02-28] MEDS: PANTOPRAZOLE SODIUM 40 MG DR TABLET PO SCH (07:21)
[2018-02-28 08:00] VITALS: BP 112/74
[2018-02-28] MEDS: VALPROIC ACID 250 MG CAPSULE PO SCH ×2 (09:21→17:15)
[2018-02-28] MEDS: RisperiDONE CONC 3 MG/3 ML SOLUTION ORAL.SYG PO SCH ×2 (09:21→17:15)
[2018-02-28] MEDS: MULTIVITAMINS WITH MINERALS, THERAPEUTIC TABLET PO SCH (09:21)
[2018-02-28] MEDS: BENZTROPINE MESYLATE 2 MG TABLET PO SCH ×2 (09:21→17:15)
[2018-02-28] MEDS: DOCUSATE SODIUM 100 MG CAPSULE PO SCH ×2 (09:21→17:15)
[2018-02-28] MEDS: ZINC SULFATE 220 MG CAPSULE PO SCH (09:22)
[2018-02-28] MEDS: NYSTATIN 15 GM POWDER BOTTLE TP SCH ×2 (09:22→17:15)
[2018-02-28] MEDS: MEGESTROL ACETATE 400 MG/10 ML SUSPENSION UDCUP PO SCH ×2 (09:22→17:15)
[2018-02-28 16:08] VITALS: BP 109/66
[2018-02-28] MEDS: TraZODone HCL 100 MG TABLET PO SCH (21:01)
[2018-03-01] MEDS: DOCOSANOL 10% 2 GM CREAM TP SCH ×5 (06:40→22:12)
[2018-03-01] MEDS: PANTOPRAZOLE SODIUM 40 MG DR TABLET PO SCH (07:07)
[2018-03-01] MEDS: LEVOTHYROXINE SODIUM 75 MCG TABLET PO SCH (07:07)
[2018-03-01 08:00] VITALS: BP 106/70
[2018-03-01] MEDS: DOCUSATE SODIUM 100 MG CAPSULE PO SCH ×2 (09:23→16:05)
[2018-03-01] MEDS: MULTIVITAMINS WITH MINERALS, THERAPEUTIC TABLET PO SCH (09:23)
[2018-03-01] MEDS: BENZTROPINE MESYLATE 2 MG TABLET PO SCH ×2 (09:23→16:04)
[2018-03-01] MEDS: MEGESTROL ACETATE 400 MG/10 ML SUSPENSION UDCUP PO SCH ×2 (09:25→16:02)
[2018-03-01] MEDS: VALPROIC ACID 250 MG CAPSULE PO SCH ×2 (09:25→16:03)
[2018-03-01] MEDS: ZINC SULFATE 220 MG CAPSULE PO SCH (09:26)
[2018-03-01] MEDS: RisperiDONE CONC 3 MG/3 ML SOLUTION ORAL.SYG PO SCH ×2 (09:26→16:02)
[2018-03-01] MEDS: NYSTATIN 15 GM POWDER BOTTLE TP SCH ×2 (09:27→16:06)
[2018-03-01 16:50] VITALS: BP 101/56
[2018-03-01] MEDS: TraZODone HCL 100 MG TABLET PO SCH (20:31)
[2018-03-02] MEDS: PANTOPRAZOLE SODIUM 40 MG DR TABLET PO SCH (06:07)
[2018-03-02] MEDS: LEVOTHYROXINE SODIUM 75 MCG TABLET PO SCH (06:07)
[2018-03-02] MEDS: DOCOSANOL 10% 2 GM CREAM TP SCH ×5 (06:07→22:44)
[2018-03-02] MEDS: DOCUSATE SODIUM 100 MG CAPSULE PO SCH ×2 (09:18→16:24)
[2018-03-02] MEDS: MULTIVITAMINS WITH MINERALS, THERAPEUTIC TABLET PO SCH (09:18)
[2018-03-02] MEDS: BENZTROPINE MESYLATE 2 MG TABLET PO SCH ×2 (09:18→16:24)
[2018-03-02] MEDS: RisperiDONE CONC 3 MG/3 ML SOLUTION ORAL.SYG PO SCH ×2 (09:20→16:24)
[2018-03-02] MEDS: VALPROIC ACID 250 MG CAPSULE PO SCH ×2 (09:20→16:24)
[2018-03-02] MEDS: MEGESTROL ACETATE 400 MG/10 ML SUSPENSION UDCUP PO SCH ×2 (09:21→16:24)
[2018-03-02] MEDS: NYSTATIN 15 GM POWDER BOTTLE TP SCH ×2 (09:29→16:25)
[2018-03-02 11:17] VITALS: BP 112/74
[2018-03-02 17:12] VITALS: BP 103/63
[2018-03-02] MEDS: TraZODone HCL 100 MG TABLET PO SCH (20:17)
[2018-03-03] MEDS: LEVOTHYROXINE SODIUM 75 MCG TABLET PO SCH (06:25)
[2018-03-03] MEDS: DOCOSANOL 10% 2 GM CREAM TP SCH ×5 (06:25→22:05)
[2018-03-03] MEDS: PANTOPRAZOLE SODIUM 40 MG DR TABLET PO SCH (06:25)
[2018-03-03] MEDS: VALPROIC ACID 250 MG CAPSULE PO SCH ×2 (08:58→17:00)
[2018-03-03] MEDS: DOCUSATE SODIUM 100 MG CAPSULE PO SCH ×2 (08:58→17:00)
[2018-03-03] MEDS: MEGESTROL ACETATE 400 MG/10 ML SUSPENSION UDCUP PO SCH ×2 (08:59→17:00)
[2018-03-03] MEDS: MULTIVITAMINS WITH MINERALS, THERAPEUTIC TABLET PO SCH (08:59)
[2018-03-03] MEDS: RisperiDONE CONC 3 MG/3 ML SOLUTION ORAL.SYG PO SCH ×2 (08:59→17:00)
[2018-03-03] MEDS: BENZTROPINE MESYLATE 2 MG TABLET PO SCH ×2 (08:59→17:00)
[2018-03-03] MEDS: NYSTATIN 15 GM POWDER BOTTLE TP SCH ×2 (10:00→17:01)
[2018-03-03] MEDS: TraZODone HCL 100 MG TABLET PO SCH (22:00)
[2018-03-04] MEDS: DOCOSANOL 10% 2 GM CREAM TP SCH ×5 (06:08→22:00)
[2018-03-04] MEDS: PANTOPRAZOLE SODIUM 40 MG DR TABLET PO SCH (07:00)
[2018-03-04] MEDS: LEVOTHYROXINE SODIUM 75 MCG TABLET PO SCH (07:00)
[2018-03-04 08:30] VITALS: BP 117/62
[2018-03-04] MEDS: MULTIVITAMINS WITH MINERALS, THERAPEUTIC TABLET PO SCH (08:35)
[2018-03-04] MEDS: BENZTROPINE MESYLATE 2 MG TABLET PO SCH ×2 (08:35→16:37)
[2018-03-04] MEDS: VALPROIC ACID 250 MG CAPSULE PO SCH ×2 (08:35→16:38)
[2018-03-04] MEDS: DOCUSATE SODIUM 100 MG CAPSULE PO SCH ×2 (08:35→16:37)
[2018-03-04] MEDS: RisperiDONE CONC 3 MG/3 ML SOLUTION ORAL.SYG PO SCH ×2 (08:36→16:38)
[2018-03-04] MEDS: MEGESTROL ACETATE 400 MG/10 ML SUSPENSION UDCUP PO SCH ×2 (08:36→16:37)
[2018-03-04] MEDS: NYSTATIN 15 GM POWDER BOTTLE TP SCH ×2 (11:11→16:39)
[2018-03-04 16:57] VITALS: BP 103/87
[2018-03-04] MEDS: TraZODone HCL 100 MG TABLET PO SCH (20:43)
[2018-03-05] MEDS: DOCOSANOL 10% 2 GM CREAM TP SCH ×5 (06:23→21:00)
[2018-03-05] MEDS: LEVOTHYROXINE SODIUM 75 MCG TABLET PO SCH (07:06)
[2018-03-05] MEDS: PANTOPRAZOLE SODIUM 40 MG DR TABLET PO SCH (07:06)
[2018-03-05 08:05] VITALS: BP 105/61
[2018-03-05] MEDS: MEGESTROL ACETATE 400 MG/10 ML SUSPENSION UDCUP PO SCH ×2 (08:55→17:02)
[2018-03-05] MEDS: MULTIVITAMINS WITH MINERALS, THERAPEUTIC TABLET PO SCH (08:55)
[2018-03-05] MEDS: DOCUSATE SODIUM 100 MG CAPSULE PO SCH ×2 (08:55→17:03)
[2018-03-05] MEDS: VALPROIC ACID 250 MG CAPSULE PO SCH ×2 (08:55→17:02)
[2018-03-05] MEDS: BENZTROPINE MESYLATE 2 MG TABLET PO SCH ×2 (08:55→17:02)
[2018-03-05] MEDS: RisperiDONE CONC 3 MG/3 ML SOLUTION ORAL.SYG PO SCH ×2 (08:55→17:02)
[2018-03-05] MEDS: NYSTATIN 15 GM POWDER BOTTLE TP SCH ×2 (10:10→17:03)
[2018-03-05 16:01] VITALS: BP 125/77
[2018-03-05] MEDS: HALOPERIDOL 5 MG TABLET PO PRN (16:40)
[2018-03-05] MEDS: TraZODone HCL 100 MG TABLET PO SCH (20:59)
[2018-03-06] MEDS: DOCOSANOL 10% 2 GM CREAM TP SCH ×5 (06:12→22:02)
[2018-03-06] MEDS: PANTOPRAZOLE SODIUM 40 MG DR TABLET PO SCH (07:00)
[2018-03-06] MEDS: LEVOTHYROXINE SODIUM 75 MCG TABLET PO SCH (07:00)
[2018-03-06] MEDS: BENZTROPINE MESYLATE 2 MG TABLET PO SCH ×2 (07:52→17:06)
[2018-03-06] MEDS: MULTIVITAMINS WITH MINERALS, THERAPEUTIC TABLET PO SCH (07:52)
[2018-03-06] MEDS: RisperiDONE CONC 3 MG/3 ML SOLUTION ORAL.SYG PO SCH ×2 (07:53→17:04)
[2018-03-06] MEDS: VALPROIC ACID 250 MG CAPSULE PO SCH ×2 (07:53→17:04)
[2018-03-06] MEDS: MEGESTROL ACETATE 400 MG/10 ML SUSPENSION UDCUP PO SCH ×2 (07:53→17:06)
[2018-03-06] MEDS: DOCUSATE SODIUM 100 MG CAPSULE PO SCH ×2 (07:53→17:06)
[2018-03-06 10:24] VITALS: BP 106/68
[2018-03-06] MEDS: NYSTATIN 15 GM POWDER BOTTLE TP SCH ×2 (10:27→17:04)
[2018-03-06 16:30] VITALS: BP 126/70
[2018-03-06] MEDS: TraZODone HCL 100 MG TABLET PO SCH (20:40)
[2018-03-07] MEDS: PANTOPRAZOLE SODIUM 40 MG DR TABLET PO SCH (06:39)
[2018-03-07] MEDS: LEVOTHYROXINE SODIUM 75 MCG TABLET PO SCH (06:39)
[2018-03-07] MEDS: DOCOSANOL 10% 2 GM CREAM TP SCH ×5 (06:39→20:24)
[2018-03-07] MEDS: DOCUSATE SODIUM 100 MG CAPSULE PO SCH ×2 (09:44→16:42)
[2018-03-07] MEDS: BENZTROPINE MESYLATE 2 MG TABLET PO SCH ×2 (09:45→16:42)
[2018-03-07] MEDS: MULTIVITAMINS WITH MINERALS, THERAPEUTIC TABLET PO SCH (09:45)
[2018-03-07] MEDS: VALPROIC ACID 250 MG CAPSULE PO SCH ×2 (09:46→16:42)
[2018-03-07] MEDS: MEGESTROL ACETATE 400 MG/10 ML SUSPENSION UDCUP PO SCH ×2 (09:46→16:43)
[2018-03-07] MEDS: NYSTATIN 15 GM POWDER BOTTLE TP SCH ×2 (09:47→16:45)
[2018-03-07] MEDS: RisperiDONE CONC 3 MG/3 ML SOLUTION ORAL.SYG PO SCH ×2 (09:47→16:43)
[2018-03-07 10:25] VITALS: BP 103/59
[2018-03-07 18:56] VITALS: BP 116/65
[2018-03-07] MEDS: TraZODone HCL 100 MG TABLET PO SCH (20:22)
[2018-03-08] MEDS: LEVOTHYROXINE SODIUM 75 MCG TABLET PO SCH (06:34)
[2018-03-08] MEDS: DOCOSANOL 10% 2 GM CREAM TP SCH ×5 (06:35→22:04)
[2018-03-08] MEDS: PANTOPRAZOLE SODIUM 40 MG DR TABLET PO SCH (06:35)
[2018-03-08 08:25] VITALS: BP 116/72
[2018-03-08] MEDS: MEGESTROL ACETATE 400 MG/10 ML SUSPENSION UDCUP PO SCH ×2 (09:36→17:11)
[2018-03-08] MEDS: VALPROIC ACID 250 MG CAPSULE PO SCH ×2 (09:36→17:11)
[2018-03-08] MEDS: RisperiDONE CONC 3 MG/3 ML SOLUTION ORAL.SYG PO SCH ×2 (09:36→17:11)
[2018-03-08] MEDS: NYSTATIN 15 GM POWDER BOTTLE TP SCH ×2 (09:36→17:12)
[2018-03-08] MEDS: DOCUSATE SODIUM 100 MG CAPSULE PO SCH ×2 (09:37→17:11)
[2018-03-08] MEDS: BENZTROPINE MESYLATE 2 MG TABLET PO SCH ×2 (09:37→17:11)
[2018-03-08] MEDS: MULTIVITAMINS WITH MINERALS, THERAPEUTIC TABLET PO SCH (09:42)
[2018-03-08 16:00] VITALS: BP 100/76
[2018-03-08] MEDS: TraZODone HCL 100 MG TABLET PO SCH (20:12)
[2018-03-09] MEDS: DOCOSANOL 10% 2 GM CREAM TP SCH ×5 (06:05→21:52)
[2018-03-09] MEDS: LEVOTHYROXINE SODIUM 75 MCG TABLET PO SCH (06:47)
[2018-03-09] MEDS: PANTOPRAZOLE SODIUM 40 MG DR TABLET PO SCH (06:47)
[2018-03-09] MEDS: MULTIVITAMINS WITH MINERALS, THERAPEUTIC TABLET PO SCH (09:27)
[2018-03-09] MEDS: DOCUSATE SODIUM 100 MG CAPSULE PO SCH ×2 (09:27→17:21)
[2018-03-09] MEDS: RisperiDONE CONC 3 MG/3 ML SOLUTION ORAL.SYG PO SCH ×2 (09:28→17:23)
[2018-03-09] MEDS: BENZTROPINE MESYLATE 2 MG TABLET PO SCH ×2 (09:28→17:22)
[2018-03-09] MEDS: MEGESTROL ACETATE 400 MG/10 ML SUSPENSION UDCUP PO SCH ×2 (09:29→17:23)
[2018-03-09] MEDS: VALPROIC ACID 250 MG CAPSULE PO SCH ×2 (09:29→17:22)
[2018-03-09] MEDS: NYSTATIN 15 GM POWDER BOTTLE TP SCH ×2 (09:30→17:23)
[2018-03-09 13:54] VITALS: BP 114/62
[2018-03-09 16:27] VITALS: BP 106/74
[2018-03-09] MEDS: TraZODone HCL 100 MG TABLET PO SCH (20:02)
[2018-03-10] MEDS: DOCOSANOL 10% 2 GM CREAM TP SCH ×5 (06:10→21:36)
[2018-03-10] MEDS: PANTOPRAZOLE SODIUM 40 MG DR TABLET PO SCH (07:00)
[2018-03-10] MEDS: LEVOTHYROXINE SODIUM 75 MCG TABLET PO SCH (07:00)
[2018-03-10 08:05] VITALS: BP 115/68
[2018-03-10] MEDS: BENZTROPINE MESYLATE 2 MG TABLET PO SCH ×2 (08:46→16:59)
[2018-03-10] MEDS: MULTIVITAMINS WITH MINERALS, THERAPEUTIC TABLET PO SCH (08:47)
[2018-03-10] MEDS: DOCUSATE SODIUM 100 MG CAPSULE PO SCH ×2 (08:47→17:00)
[2018-03-10] MEDS: RisperiDONE CONC 3 MG/3 ML SOLUTION ORAL.SYG PO SCH ×2 (08:48→17:01)
[2018-03-10] MEDS: MEGESTROL ACETATE 400 MG/10 ML SUSPENSION UDCUP PO SCH ×2 (08:48→17:00)
[2018-03-10] MEDS: VALPROIC ACID 250 MG CAPSULE PO SCH ×2 (08:49→17:00)
[2018-03-10] MEDS: NYSTATIN 15 GM POWDER BOTTLE TP SCH ×2 (08:57→17:01)
[2018-03-10] MEDS: TraZODone HCL 100 MG TABLET PO SCH (20:05)
[2018-03-10 21:28] VITALS: BP 95/64
[2018-03-11] MEDS: DOCOSANOL 10% 2 GM CREAM TP SCH ×5 (05:54→22:10)
[2018-03-11] MEDS: PANTOPRAZOLE SODIUM 40 MG DR TABLET PO SCH (07:00)
[2018-03-11] MEDS: LEVOTHYROXINE SODIUM 75 MCG TABLET PO SCH (07:00)
[2018-03-11 08:00] VITALS: BP 118/65
[2018-03-11] MEDS: VALPROIC ACID 250 MG CAPSULE PO SCH ×2 (08:53→17:04)
[2018-03-11] MEDS: MEGESTROL ACETATE 400 MG/10 ML SUSPENSION UDCUP PO SCH ×2 (08:53→17:04)
[2018-03-11] MEDS: RisperiDONE CONC 3 MG/3 ML SOLUTION ORAL.SYG PO SCH ×2 (08:53→17:04)
[2018-03-11] MEDS: NYSTATIN 15 GM POWDER BOTTLE TP SCH ×2 (08:54→17:05)
[2018-03-11] MEDS: DOCUSATE SODIUM 100 MG CAPSULE PO SCH ×2 (08:56→17:06)
[2018-03-11] MEDS: MULTIVITAMINS WITH MINERALS, THERAPEUTIC TABLET PO SCH (08:56)
[2018-03-11] MEDS: BENZTROPINE MESYLATE 2 MG TABLET PO SCH ×2 (08:56→17:06)
[2018-03-11 16:00] VITALS: BP 106/62
[2018-03-11] MEDS: TraZODone HCL 100 MG TABLET PO SCH (22:08)
[2018-03-12] MEDS: DOCOSANOL 10% 2 GM CREAM TP SCH ×5 (06:01→22:41)
[2018-03-12] MEDS: PANTOPRAZOLE SODIUM 40 MG DR TABLET PO SCH (07:00)
[2018-03-12] MEDS: LEVOTHYROXINE SODIUM 75 MCG TABLET PO SCH (07:00)
[2018-03-12] MEDS: DOCUSATE SODIUM 100 MG CAPSULE PO SCH ×2 (07:59→16:19)
[2018-03-12] MEDS: BENZTROPINE MESYLATE 2 MG TABLET PO SCH ×2 (07:59→16:18)
[2018-03-12] MEDS: MULTIVITAMINS WITH MINERALS, THERAPEUTIC TABLET PO SCH (07:59)
[2018-03-12] MEDS: RisperiDONE CONC 3 MG/3 ML SOLUTION ORAL.SYG PO SCH ×2 (07:59→16:23)
[2018-03-12] MEDS: MEGESTROL ACETATE 400 MG/10 ML SUSPENSION UDCUP PO SCH ×2 (07:59→16:18)
[2018-03-12] MEDS: VALPROIC ACID 250 MG CAPSULE PO SCH ×2 (07:59→16:18)
[2018-03-12] MEDS: NYSTATIN 15 GM POWDER BOTTLE TP SCH ×2 (08:00→16:23)
[2018-03-12 08:14] VITALS: BP 129/72
[2018-03-12 18:19] VITALS: BP 117/86
[2018-03-12] MEDS: TraZODone HCL 100 MG TABLET PO SCH (20:23)
[2018-03-13] MEDS: PANTOPRAZOLE SODIUM 40 MG DR TABLET PO SCH (06:16)
[2018-03-13] MEDS: DOCOSANOL 10% 2 GM CREAM TP SCH ×5 (06:16→22:02)
[2018-03-13] MEDS: LEVOTHYROXINE SODIUM 75 MCG TABLET PO SCH (06:16)
[2018-03-13] MEDS: MEGESTROL ACETATE 400 MG/10 ML SUSPENSION UDCUP PO SCH ×2 (08:03→17:48)
[2018-03-13] MEDS: RisperiDONE CONC 3 MG/3 ML SOLUTION ORAL.SYG PO SCH ×2 (08:03→17:48)
[2018-03-13] MEDS: VALPROIC ACID 250 MG CAPSULE PO SCH ×2 (08:03→17:49)
[2018-03-13] MEDS: NYSTATIN 15 GM POWDER BOTTLE TP SCH ×2 (08:03→17:49)
[2018-03-13] MEDS: BENZTROPINE MESYLATE 2 MG TABLET PO SCH ×2 (08:05→17:48)
[2018-03-13] MEDS: MULTIVITAMINS WITH MINERALS, THERAPEUTIC TABLET PO SCH (08:05)
[2018-03-13] MEDS: DOCUSATE SODIUM 100 MG CAPSULE PO SCH ×2 (08:22→17:48)
[2018-03-13 08:35] VITALS: BP 119/71
[2018-03-13] MEDS: TraZODone HCL 100 MG TABLET PO SCH (20:11)
[2018-03-13 20:19] VITALS: BP 116/80
[2018-03-14] MEDS: DOCOSANOL 10% 2 GM CREAM TP SCH ×5 (05:58→22:43)
[2018-03-14] MEDS: LEVOTHYROXINE SODIUM 75 MCG TABLET PO SCH (07:00)
[2018-03-14] MEDS: PANTOPRAZOLE SODIUM 40 MG DR TABLET PO SCH (07:00)
[2018-03-14] MEDS: DOCUSATE SODIUM 100 MG CAPSULE PO SCH ×2 (08:52→16:28)
[2018-03-14] MEDS: MULTIVITAMINS WITH MINERALS, THERAPEUTIC TABLET PO SCH (08:52)
[2018-03-14] MEDS: BENZTROPINE MESYLATE 2 MG TABLET PO SCH ×2 (08:52→16:27)
[2018-03-14] MEDS: VALPROIC ACID 250 MG CAPSULE PO SCH ×2 (08:54→16:28)
[2018-03-14] MEDS: RisperiDONE CONC 3 MG/3 ML SOLUTION ORAL.SYG PO SCH ×2 (08:56→16:28)
[2018-03-14] MEDS: MEGESTROL ACETATE 400 MG/10 ML SUSPENSION UDCUP PO SCH ×2 (08:56→16:28)
[2018-03-14] MEDS: NYSTATIN 15 GM POWDER BOTTLE TP SCH ×2 (09:00→16:39)
[2018-03-14 09:44] VITALS: BP 120/69
[2018-03-14 16:47] VITALS: BP 111/70
[2018-03-14] MEDS: TraZODone HCL 100 MG TABLET PO SCH (20:19)
[2018-03-15] MEDS: DOCOSANOL 10% 2 GM CREAM TP SCH ×5 (06:00→22:00)
[2018-03-15] MEDS: LEVOTHYROXINE SODIUM 75 MCG TABLET PO SCH (07:09)
[2018-03-15] MEDS: PANTOPRAZOLE SODIUM 40 MG DR TABLET PO SCH (07:09)
[2018-03-15 08:23] VITALS: BP 104/65
[2018-03-15] MEDS: BENZTROPINE MESYLATE 2 MG TABLET PO SCH ×2 (10:08→16:30)
[2018-03-15] MEDS: VALPROIC ACID 250 MG CAPSULE PO SCH ×2 (10:08→16:30)
[2018-03-15] MEDS: MEGESTROL ACETATE 400 MG/10 ML SUSPENSION UDCUP PO SCH ×2 (10:08→16:29)
[2018-03-15] MEDS: RisperiDONE CONC 3 MG/3 ML SOLUTION ORAL.SYG PO SCH ×2 (10:08→16:29)
[2018-03-15] MEDS: DOCUSATE SODIUM 100 MG CAPSULE PO SCH ×2 (10:08→16:30)
[2018-03-15] MEDS: MULTIVITAMINS WITH MINERALS, THERAPEUTIC TABLET PO SCH (10:08)
[2018-03-15] MEDS: NYSTATIN 15 GM POWDER BOTTLE TP SCH ×2 (10:10→16:30)
[2018-03-15 16:51] VITALS: BP 118/72
[2018-03-15 16:53] VITALS: BP 118/72
[2018-03-15] MEDS: TraZODone HCL 100 MG TABLET PO SCH (20:31)
[2018-03-16] MEDS: DOCOSANOL 10% 2 GM CREAM TP SCH ×3 (06:00→21:24)
[2018-03-16] MEDS: PANTOPRAZOLE SODIUM 40 MG DR TABLET PO SCH ×2 (06:58→07:03)
[2018-03-16] MEDS: LEVOTHYROXINE SODIUM 75 MCG TABLET PO SCH ×2 (06:58→07:03)
[2018-03-16 08:00] VITALS: BP 112/63
[2018-03-16] MEDS: DOCUSATE SODIUM 100 MG CAPSULE PO SCH ×2 (09:01→16:04)
[2018-03-16] MEDS: BENZTROPINE MESYLATE 2 MG TABLET PO SCH ×2 (09:01→16:04)
[2018-03-16] MEDS: RisperiDONE CONC 3 MG/3 ML SOLUTION ORAL.SYG PO SCH ×2 (09:02→16:06)
[2018-03-16] MEDS: MULTIVITAMINS WITH MINERALS, THERAPEUTIC TABLET PO SCH (09:02)
[2018-03-16] MEDS: MEGESTROL ACETATE 400 MG/10 ML SUSPENSION UDCUP PO SCH ×2 (09:02→16:04)
[2018-03-16] MEDS: VALPROIC ACID 250 MG CAPSULE PO SCH ×2 (09:02→16:04)
[2018-03-16 17:17] VITALS: BP 106/50
[2018-03-16] MEDS: NYSTATIN 15 GM POWDER BOTTLE TP SCH (17:25)
[2018-03-16] MEDS: TraZODone HCL 100 MG TABLET PO SCH (20:33)
[2018-03-17] MEDS: HALOPERIDOL 5 MG TABLET PO PRN (00:53)
[2018-03-17] MEDS: LEVOTHYROXINE SODIUM 75 MCG TABLET PO SCH (06:29)
[2018-03-17] MEDS: PANTOPRAZOLE SODIUM 40 MG DR TABLET PO SCH (06:29)
[2018-03-17] MEDS: DOCOSANOL 10% 2 GM CREAM TP SCH ×5 (06:29→22:05)
[2018-03-17 08:00] VITALS: BP 102/67
[2018-03-17] MEDS: NYSTATIN 15 GM POWDER BOTTLE TP SCH ×2 (09:46→16:28)
[2018-03-17] MEDS: MEGESTROL ACETATE 400 MG/10 ML SUSPENSION UDCUP PO SCH ×2 (09:46→16:28)
[2018-03-17] MEDS: VALPROIC ACID 250 MG CAPSULE PO SCH ×2 (09:46→16:27)
[2018-03-17] MEDS: RisperiDONE CONC 3 MG/3 ML SOLUTION ORAL.SYG PO SCH ×2 (09:46→16:28)
[2018-03-17] MEDS: MULTIVITAMINS WITH MINERALS, THERAPEUTIC TABLET PO SCH (09:48)
[2018-03-17] MEDS: DOCUSATE SODIUM 100 MG CAPSULE PO SCH ×2 (09:48→16:30)
[2018-03-17] MEDS: BENZTROPINE MESYLATE 2 MG TABLET PO SCH ×2 (09:48→16:30)
[2018-03-17 16:45] VITALS: BP 111/74
[2018-03-17] MEDS: TraZODone HCL 100 MG TABLET PO SCH (20:03)
[2018-03-18] MEDS: PANTOPRAZOLE SODIUM 40 MG DR TABLET PO SCH (06:15)
[2018-03-18] MEDS: LEVOTHYROXINE SODIUM 75 MCG TABLET PO SCH (06:15)
[2018-03-18] MEDS: DOCOSANOL 10% 2 GM CREAM TP SCH (06:16)
[2018-03-18 08:00] VITALS: BP 119/67
[2018-03-18] MEDS: MEGESTROL ACETATE 400 MG/10 ML SUSPENSION UDCUP PO SCH ×2 (09:04→16:45)
[2018-03-18] MEDS: BENZTROPINE MESYLATE 2 MG TABLET PO SCH ×2 (09:04→16:41)
[2018-03-18] MEDS: MULTIVITAMINS WITH MINERALS, THERAPEUTIC TABLET PO SCH (09:04)
[2018-03-18] MEDS: VALPROIC ACID 250 MG CAPSULE PO SCH ×2 (09:04→16:45)
[2018-03-18] MEDS: RisperiDONE CONC 3 MG/3 ML SOLUTION ORAL.SYG PO SCH ×2 (09:05→16:45)
[2018-03-18] MEDS: NYSTATIN 15 GM POWDER BOTTLE TP SCH ×2 (09:05→16:41)
[2018-03-18] MEDS: DOCUSATE SODIUM 100 MG CAPSULE PO SCH ×2 (09:06→16:41)
[2018-03-18 19:22] VITALS: BP 111/71
[2018-03-18] MEDS: TraZODone HCL 100 MG TABLET PO SCH (20:31)
[2018-03-19] MEDS: LEVOTHYROXINE SODIUM 75 MCG TABLET PO SCH (06:41)
[2018-03-19] MEDS: PANTOPRAZOLE SODIUM 40 MG DR TABLET PO SCH (06:41)
[2018-03-19 08:19] VITALS: BP 101/56
[2018-03-19] MEDS: MULTIVITAMINS WITH MINERALS, THERAPEUTIC TABLET PO SCH (08:22)
[2018-03-19] MEDS: MEGESTROL ACETATE 400 MG/10 ML SUSPENSION UDCUP PO SCH ×2 (08:23→16:21)
[2018-03-19] MEDS: DOCUSATE SODIUM 100 MG CAPSULE PO SCH ×2 (08:23→16:21)
[2018-03-19] MEDS: VALPROIC ACID 250 MG CAPSULE PO SCH ×2 (08:24→16:21)
[2018-03-19] MEDS: RisperiDONE CONC 3 MG/3 ML SOLUTION ORAL.SYG PO SCH ×2 (08:25→16:21)
[2018-03-19] MEDS: BENZTROPINE MESYLATE 2 MG TABLET PO SCH ×2 (08:25→16:21)
[2018-03-19] MEDS: NYSTATIN 15 GM POWDER BOTTLE TP SCH ×2 (08:35→16:21)
[2018-03-19 16:43] VITALS: BP 109/64
[2018-03-19] MEDS: TraZODone HCL 100 MG TABLET PO SCH (22:00)
[2018-03-20] MEDS: LEVOTHYROXINE SODIUM 75 MCG TABLET PO SCH (06:55)
[2018-03-20] MEDS: PANTOPRAZOLE SODIUM 40 MG DR TABLET PO SCH (06:55)
[2018-03-20] MEDS: VALPROIC ACID 250 MG CAPSULE PO SCH ×2 (08:21→16:34)
[2018-03-20] MEDS: MEGESTROL ACETATE 400 MG/10 ML SUSPENSION UDCUP PO SCH ×2 (08:23→16:35)
[2018-03-20] MEDS: DOCUSATE SODIUM 100 MG CAPSULE PO SCH ×2 (08:25→16:35)
[2018-03-20] MEDS: RisperiDONE CONC 3 MG/3 ML SOLUTION ORAL.SYG PO SCH ×2 (08:25→16:35)
[2018-03-20] MEDS: BENZTROPINE MESYLATE 2 MG TABLET PO SCH ×2 (08:25→16:34)
[2018-03-20] MEDS: MULTIVITAMINS WITH MINERALS, THERAPEUTIC TABLET PO SCH (08:29)
[2018-03-20] MEDS: NYSTATIN 15 GM POWDER BOTTLE TP SCH ×2 (08:29→16:35)
[2018-03-20 09:49] VITALS: BP 105/59
[2018-03-20 17:26] VITALS: BP 124/81
[2018-03-20] MEDS: TraZODone HCL 100 MG TABLET PO SCH (20:13)
[2018-03-21] MEDS: PANTOPRAZOLE SODIUM 40 MG DR TABLET PO SCH (06:34)
[2018-03-21] MEDS: LEVOTHYROXINE SODIUM 75 MCG TABLET PO SCH (06:34)
[2018-03-21 08:00] VITALS: BP 127/68
[2018-03-21] MEDS: DOCUSATE SODIUM 100 MG CAPSULE PO SCH ×2 (08:41→16:35)
[2018-03-21] MEDS: MULTIVITAMINS WITH MINERALS, THERAPEUTIC TABLET PO SCH (08:41)
[2018-03-21] MEDS: BENZTROPINE MESYLATE 2 MG TABLET PO SCH ×2 (08:41→16:34)
[2018-03-21] MEDS: MEGESTROL ACETATE 400 MG/10 ML SUSPENSION UDCUP PO SCH ×2 (08:42→16:35)
[2018-03-21] MEDS: RisperiDONE CONC 3 MG/3 ML SOLUTION ORAL.SYG PO SCH ×2 (08:43→16:35)
[2018-03-21] MEDS: VALPROIC ACID 250 MG CAPSULE PO SCH ×2 (08:43→16:35)
[2018-03-21] MEDS: NYSTATIN 15 GM POWDER BOTTLE TP SCH ×2 (09:00→16:36)
[2018-03-21 17:46] VITALS: BP 101/59
[2018-03-21] MEDS: TraZODone HCL 100 MG TABLET PO SCH (20:39)
[2018-03-22] MEDS: LEVOTHYROXINE SODIUM 75 MCG TABLET PO SCH (06:41)
[2018-03-22] MEDS: PANTOPRAZOLE SODIUM 40 MG DR TABLET PO SCH (06:41)
[2018-03-22] MEDS: MEGESTROL ACETATE 400 MG/10 ML SUSPENSION UDCUP PO SCH ×2 (08:07→16:16)
[2018-03-22] MEDS: RisperiDONE CONC 3 MG/3 ML SOLUTION ORAL.SYG PO SCH ×2 (08:07→16:16)
[2018-03-22] MEDS: BENZTROPINE MESYLATE 2 MG TABLET PO SCH ×2 (08:07→16:17)
[2018-03-22] MEDS: DOCUSATE SODIUM 100 MG CAPSULE PO SCH ×2 (08:07→16:16)
[2018-03-22] MEDS: MULTIVITAMINS WITH MINERALS, THERAPEUTIC TABLET PO SCH (08:07)
[2018-03-22] MEDS: VALPROIC ACID 250 MG CAPSULE PO SCH ×2 (08:07→16:18)
[2018-03-22] MEDS: NYSTATIN 15 GM POWDER BOTTLE TP SCH ×2 (08:19→16:18)
[2018-03-22 09:22] VITALS: BP 107/71
[2018-03-22] MEDS: TraZODone HCL 100 MG TABLET PO SCH (20:48)
[2018-03-22 21:03] VITALS: BP 117/66
[2018-03-23] MEDS: LEVOTHYROXINE SODIUM 75 MCG TABLET PO SCH (06:42)
[2018-03-23] MEDS: PANTOPRAZOLE SODIUM 40 MG DR TABLET PO SCH (06:42)
[2018-03-23 08:00] VITALS: BP 114/75
[2018-03-23] MEDS: MULTIVITAMINS WITH MINERALS, THERAPEUTIC TABLET PO SCH (09:23)
[2018-03-23] MEDS: BENZTROPINE MESYLATE 2 MG TABLET PO SCH ×2 (09:23→16:43)
[2018-03-23] MEDS: RisperiDONE CONC 3 MG/3 ML SOLUTION ORAL.SYG PO SCH ×2 (09:23→16:44)
[2018-03-23] MEDS: DOCUSATE SODIUM 100 MG CAPSULE PO SCH ×2 (09:23→16:43)
[2018-03-23] MEDS: VALPROIC ACID 250 MG CAPSULE PO SCH ×2 (09:23→16:42)
[2018-03-23] MEDS: MEGESTROL ACETATE 400 MG/10 ML SUSPENSION UDCUP PO SCH ×2 (09:24→16:44)
[2018-03-23] MEDS: NYSTATIN 15 GM POWDER BOTTLE TP SCH ×2 (09:25→16:46)
[2018-03-23 17:27] VITALS: BP 114/69
[2018-03-23] MEDS: TraZODone HCL 100 MG TABLET PO SCH (22:04)
[2018-03-24] MEDS: PANTOPRAZOLE SODIUM 40 MG DR TABLET PO SCH (07:00)
[2018-03-24] MEDS: LEVOTHYROXINE SODIUM 75 MCG TABLET PO SCH (07:00)
[2018-03-24 09:00] VITALS: BP 97/74
[2018-03-24] MEDS: BENZTROPINE MESYLATE 2 MG TABLET PO SCH ×2 (09:01→17:11)
[2018-03-24] MEDS: MULTIVITAMINS WITH MINERALS, THERAPEUTIC TABLET PO SCH (09:01)
[2018-03-24] MEDS: DOCUSATE SODIUM 100 MG CAPSULE PO SCH ×2 (09:01→17:10)
[2018-03-24] MEDS: VALPROIC ACID 250 MG CAPSULE PO SCH ×2 (09:02→17:09)
[2018-03-24] MEDS: MEGESTROL ACETATE 400 MG/10 ML SUSPENSION UDCUP PO SCH ×2 (09:03→17:10)
[2018-03-24] MEDS: NYSTATIN 15 GM POWDER BOTTLE TP SCH ×2 (09:03→17:09)
[2018-03-24] MEDS: RisperiDONE CONC 3 MG/3 ML SOLUTION ORAL.SYG PO SCH ×2 (09:03→17:09)
[2018-03-24 16:00] VITALS: BP 106/62
[2018-03-24] MEDS: TraZODone HCL 100 MG TABLET PO SCH (20:28)
[2018-03-25] MEDS: PANTOPRAZOLE SODIUM 40 MG DR TABLET PO SCH (06:56)
[2018-03-25] MEDS: LEVOTHYROXINE SODIUM 75 MCG TABLET PO SCH (06:56)
[2018-03-25] MEDS: DOCUSATE SODIUM 100 MG CAPSULE PO SCH ×2 (08:19→17:00)
[2018-03-25] MEDS: BENZTROPINE MESYLATE 2 MG TABLET PO SCH ×2 (08:19→17:00)
[2018-03-25] MEDS: MULTIVITAMINS WITH MINERALS, THERAPEUTIC TABLET PO SCH (08:19)
[2018-03-25] MEDS: RisperiDONE CONC 3 MG/3 ML SOLUTION ORAL.SYG PO SCH ×2 (08:20→17:01)
[2018-03-25] MEDS: VALPROIC ACID 250 MG CAPSULE PO SCH ×2 (08:21→17:01)
[2018-03-25] MEDS: MEGESTROL ACETATE 400 MG/10 ML SUSPENSION UDCUP PO SCH ×2 (08:21→17:01)
[2018-03-25] MEDS: NYSTATIN 15 GM POWDER BOTTLE TP SCH ×2 (08:27→17:00)
[2018-03-25 08:47] VITALS: BP 100/51
[2018-03-25 18:55] VITALS: BP 85/39
[2018-03-25 19:00] VITALS: BP 118/68
[2018-03-25] MEDS: TraZODone HCL 100 MG TABLET PO SCH (20:08)
[2018-03-26] MEDS: PANTOPRAZOLE SODIUM 40 MG DR TABLET PO SCH (07:06)
[2018-03-26] MEDS: LEVOTHYROXINE SODIUM 75 MCG TABLET PO SCH (07:06)
[2018-03-26 08:00] VITALS: BP 134/88
[2018-03-26] MEDS: MULTIVITAMINS WITH MINERALS, THERAPEUTIC TABLET PO SCH (08:57)
[2018-03-26] MEDS: DOCUSATE SODIUM 100 MG CAPSULE PO SCH ×2 (08:57→16:21)
[2018-03-26] MEDS: BENZTROPINE MESYLATE 2 MG TABLET PO SCH ×2 (08:57→16:21)
[2018-03-26] MEDS: MEGESTROL ACETATE 400 MG/10 ML SUSPENSION UDCUP PO SCH ×2 (08:57→16:21)
[2018-03-26] MEDS: RisperiDONE CONC 3 MG/3 ML SOLUTION ORAL.SYG PO SCH ×2 (08:58→16:21)
[2018-03-26] MEDS: VALPROIC ACID 250 MG CAPSULE PO SCH ×2 (08:58→16:21)
[2018-03-26] MEDS: NYSTATIN 15 GM POWDER BOTTLE TP SCH ×2 (09:00→16:21)
[2018-03-26] MEDS: TraMADol HCL 50 MG TABLET PO PRN (12:35)
[2018-03-26 16:25] VITALS: BP 98/58
[2018-03-26 18:30] VITALS: BP 124/68
[2018-03-26] MEDS: TraZODone HCL 100 MG TABLET PO SCH (20:30)
[2018-03-27] MEDS: LEVOTHYROXINE SODIUM 75 MCG TABLET PO SCH (06:42)
[2018-03-27] MEDS: PANTOPRAZOLE SODIUM 40 MG DR TABLET PO SCH (06:42)
[2018-03-27 09:00] VITALS: BP 102/64
[2018-03-27] MEDS: NYSTATIN 15 GM POWDER BOTTLE TP SCH ×2 (09:00→16:58)
[2018-03-27] MEDS: DOCUSATE SODIUM 100 MG CAPSULE PO SCH ×2 (09:14→16:56)
[2018-03-27] MEDS: MEGESTROL ACETATE 400 MG/10 ML SUSPENSION UDCUP PO SCH ×2 (09:14→16:57)
[2018-03-27] MEDS: BENZTROPINE MESYLATE 2 MG TABLET PO SCH ×2 (09:14→16:57)
[2018-03-27] MEDS: VALPROIC ACID 250 MG CAPSULE PO SCH ×2 (09:14→16:57)
[2018-03-27] MEDS: RisperiDONE CONC 3 MG/3 ML SOLUTION ORAL.SYG PO SCH ×2 (09:14→16:57)
[2018-03-27] MEDS: MULTIVITAMINS WITH MINERALS, THERAPEUTIC TABLET PO SCH (09:15)
[2018-03-27] MEDS: TraZODone HCL 100 MG TABLET PO SCH (20:36)
[2018-03-27 21:10] VITALS: BP 110/74
[2018-03-28] MEDS: PANTOPRAZOLE SODIUM 40 MG DR TABLET PO SCH (06:59)
[2018-03-28] MEDS: LEVOTHYROXINE SODIUM 75 MCG TABLET PO SCH (06:59)
[2018-03-28 08:04] VITALS: BP 106/60
[2018-03-28] MEDS: NYSTATIN 15 GM POWDER BOTTLE TP SCH ×2 (09:00→17:21)
[2018-03-28] MEDS: DOCUSATE SODIUM 100 MG CAPSULE PO SCH ×2 (09:22→17:21)
[2018-03-28] MEDS: BENZTROPINE MESYLATE 2 MG TABLET PO SCH ×2 (09:22→17:20)
[2018-03-28] MEDS: MULTIVITAMINS WITH MINERALS, THERAPEUTIC TABLET PO SCH (09:22)
[2018-03-28] MEDS: RisperiDONE CONC 3 MG/3 ML SOLUTION ORAL.SYG PO SCH ×2 (09:22→17:20)
[2018-03-28] MEDS: MEGESTROL ACETATE 400 MG/10 ML SUSPENSION UDCUP PO SCH ×2 (09:23→17:20)
[2018-03-28] MEDS: VALPROIC ACID 250 MG CAPSULE PO SCH ×2 (09:24→17:20)
[2018-03-28 17:47] VITALS: BP 123/76
[2018-03-28] MEDS: TraZODone HCL 100 MG TABLET PO SCH (20:32)
[2018-03-29] MEDS: LEVOTHYROXINE SODIUM 75 MCG TABLET PO SCH (07:00)
[2018-03-29] MEDS: PANTOPRAZOLE SODIUM 40 MG DR TABLET PO SCH (07:00)
[2018-03-29] MEDS: DOCUSATE SODIUM 100 MG CAPSULE PO SCH ×2 (08:10→16:19)
[2018-03-29] MEDS: MEGESTROL ACETATE 400 MG/10 ML SUSPENSION UDCUP PO SCH ×2 (08:11→16:18)
[2018-03-29] MEDS: RisperiDONE CONC 3 MG/3 ML SOLUTION ORAL.SYG PO SCH ×2 (08:11→16:18)
[2018-03-29] MEDS: MULTIVITAMINS WITH MINERALS, THERAPEUTIC TABLET PO SCH (08:11)
[2018-03-29] MEDS: BENZTROPINE MESYLATE 2 MG TABLET PO SCH ×2 (08:11→16:18)
[2018-03-29] MEDS: VALPROIC ACID 250 MG CAPSULE PO SCH ×2 (08:11→16:18)
[2018-03-29] MEDS: NYSTATIN 15 GM POWDER BOTTLE TP SCH ×2 (08:12→16:20)
[2018-03-29 13:40] VITALS: BP 109/55
[2018-03-29] MEDS: TraZODone HCL 100 MG TABLET PO SCH (20:23)
[2018-03-29 20:37] VITALS: BP 101/59
[2018-03-29] MEDS: HALOPERIDOL 5 MG TABLET PO PRN (23:39)
[2018-03-30] MEDS: LEVOTHYROXINE SODIUM 75 MCG TABLET PO SCH (06:56)
[2018-03-30] MEDS: PANTOPRAZOLE SODIUM 40 MG DR TABLET PO SCH (06:56)
[2018-03-30 08:33] VITALS: BP 101/52
[2018-03-30] MEDS: VALPROIC ACID 250 MG CAPSULE PO SCH ×2 (09:47→17:01)
[2018-03-30] MEDS: NYSTATIN 15 GM POWDER BOTTLE TP SCH ×2 (09:48→17:01)
[2018-03-30] MEDS: RisperiDONE CONC 3 MG/3 ML SOLUTION ORAL.SYG PO SCH ×2 (09:48→17:00)
[2018-03-30] MEDS: MEGESTROL ACETATE 400 MG/10 ML SUSPENSION UDCUP PO SCH ×2 (09:48→17:00)
[2018-03-30] MEDS: MULTIVITAMINS WITH MINERALS, THERAPEUTIC TABLET PO SCH (09:49)
[2018-03-30] MEDS: BENZTROPINE MESYLATE 2 MG TABLET PO SCH ×2 (09:49→17:01)
[2018-03-30] MEDS: DOCUSATE SODIUM 100 MG CAPSULE PO SCH ×2 (09:50→17:00)
[2018-03-30 16:19] VITALS: BP 120/70
[2018-03-30] MEDS: TraZODone HCL 100 MG TABLET PO SCH (21:52)
[2018-03-31] MEDS: LEVOTHYROXINE SODIUM 75 MCG TABLET PO SCH (06:47)
[2018-03-31] MEDS: PANTOPRAZOLE SODIUM 40 MG DR TABLET PO SCH (06:47)
[2018-03-31 08:00] VITALS: BP 105/59
[2018-03-31] MEDS: MEGESTROL ACETATE 400 MG/10 ML SUSPENSION UDCUP PO SCH ×2 (08:31→17:19)
[2018-03-31] MEDS: VALPROIC ACID 250 MG CAPSULE PO SCH ×2 (08:31→17:20)
[2018-03-31] MEDS: NYSTATIN 15 GM POWDER BOTTLE TP SCH ×2 (08:32→17:27)
[2018-03-31] MEDS: BENZTROPINE MESYLATE 2 MG TABLET PO SCH ×2 (08:34→17:20)
[2018-03-31] MEDS: MULTIVITAMINS WITH MINERALS, THERAPEUTIC TABLET PO SCH (08:34)
[2018-03-31] MEDS: HALOPERIDOL 5 MG TABLET PO PRN ×2 (08:34→17:20)
[2018-03-31] MEDS: RisperiDONE CONC 3 MG/3 ML SOLUTION ORAL.SYG PO SCH ×2 (08:35→17:19)
[2018-03-31] MEDS: DOCUSATE SODIUM 100 MG CAPSULE PO SCH ×2 (08:40→17:20)
[2018-03-31 16:34] VITALS: BP 108/68
[2018-03-31] MEDS: TraZODone HCL 100 MG TABLET PO SCH (20:10)
[2018-04-01] MEDS: LEVOTHYROXINE SODIUM 75 MCG TABLET PO SCH (07:04)
[2018-04-01] MEDS: PANTOPRAZOLE SODIUM 40 MG DR TABLET PO SCH (07:04)
[2018-04-01] MEDS: BENZTROPINE MESYLATE 2 MG TABLET PO SCH ×2 (09:32→16:28)
[2018-04-01] MEDS: MULTIVITAMINS WITH MINERALS, THERAPEUTIC TABLET PO SCH (09:32)
[2018-04-01] MEDS: VALPROIC ACID 250 MG CAPSULE PO SCH ×2 (09:33→16:28)
[2018-04-01] MEDS: DOCUSATE SODIUM 100 MG CAPSULE PO SCH ×2 (09:33→16:28)
[2018-04-01] MEDS: MEGESTROL ACETATE 400 MG/10 ML SUSPENSION UDCUP PO SCH ×2 (09:34→16:28)
[2018-04-01] MEDS: NYSTATIN 15 GM POWDER BOTTLE TP SCH ×2 (09:34→16:29)
[2018-04-01] MEDS: RisperiDONE CONC 3 MG/3 ML SOLUTION ORAL.SYG PO SCH ×2 (09:34→16:28)
[2018-04-01 10:16] VITALS: BP 104/60
[2018-04-01] MEDS: TraZODone HCL 100 MG TABLET PO SCH (20:13)
[2018-04-01 20:34] VITALS: BP 102/61
[2018-04-02] MEDS: PANTOPRAZOLE SODIUM 40 MG DR TABLET PO SCH (06:55)
[2018-04-02] MEDS: LEVOTHYROXINE SODIUM 75 MCG TABLET PO SCH (06:56)
[2018-04-02] MEDS: MULTIVITAMINS WITH MINERALS, THERAPEUTIC TABLET PO SCH (08:25)
[2018-04-02] MEDS: RisperiDONE CONC 3 MG/3 ML SOLUTION ORAL.SYG PO SCH ×2 (08:25→16:07)
[2018-04-02] MEDS: DOCUSATE SODIUM 100 MG CAPSULE PO SCH ×2 (08:25→16:08)
[2018-04-02] MEDS: BENZTROPINE MESYLATE 2 MG TABLET PO SCH ×2 (08:25→16:08)
[2018-04-02] MEDS: VALPROIC ACID 250 MG CAPSULE PO SCH ×2 (08:26→16:08)
[2018-04-02] MEDS: MEGESTROL ACETATE 400 MG/10 ML SUSPENSION UDCUP PO SCH ×2 (08:27→16:07)
[2018-04-02] MEDS: NYSTATIN 15 GM POWDER BOTTLE TP SCH ×2 (08:28→16:10)
[2018-04-02 17:44] VITALS: BP 114/75
[2018-04-02] MEDS: TraZODone HCL 100 MG TABLET PO SCH (20:27)
[2018-04-03] MEDS: LEVOTHYROXINE SODIUM 75 MCG TABLET PO SCH (07:01)
[2018-04-03] MEDS: PANTOPRAZOLE SODIUM 40 MG DR TABLET PO SCH (07:01)
[2018-04-03] MEDS: DOCUSATE SODIUM 100 MG CAPSULE PO SCH ×2 (08:31→17:10)
[2018-04-03] MEDS: MULTIVITAMINS WITH MINERALS, THERAPEUTIC TABLET PO SCH (08:32)
[2018-04-03] MEDS: BENZTROPINE MESYLATE 2 MG TABLET PO SCH ×2 (08:32→17:10)
[2018-04-03] MEDS: VALPROIC ACID 250 MG CAPSULE PO SCH ×2 (08:35→17:10)
[2018-04-03 08:52] VITALS: BP 127/84
[2018-04-03] MEDS: NYSTATIN 15 GM POWDER BOTTLE TP SCH ×2 (09:00→17:10)
[2018-04-03] MEDS: MEGESTROL ACETATE 400 MG/10 ML SUSPENSION UDCUP PO SCH ×2 (09:44→17:09)
[2018-04-03] MEDS: RisperiDONE CONC 3 MG/3 ML SOLUTION ORAL.SYG PO SCH ×2 (09:45→17:10)
[2018-04-03 16:04] VITALS: BP 107/57
[2018-04-03] MEDS: TraZODone HCL 100 MG TABLET PO SCH (21:10)
[2018-04-04] MEDS: PANTOPRAZOLE SODIUM 40 MG DR TABLET PO SCH (06:10)
[2018-04-04] MEDS: LEVOTHYROXINE SODIUM 75 MCG TABLET PO SCH (06:10)
[2018-04-04 08:00] VITALS: BP 128/77
[2018-04-04] MEDS: VALPROIC ACID 250 MG CAPSULE PO SCH ×2 (08:34→16:32)
[2018-04-04] MEDS: MEGESTROL ACETATE 400 MG/10 ML SUSPENSION UDCUP PO SCH ×2 (08:34→16:30)
[2018-04-04] MEDS: MULTIVITAMINS WITH MINERALS, THERAPEUTIC TABLET PO SCH (08:35)
[2018-04-04] MEDS: BENZTROPINE MESYLATE 2 MG TABLET PO SCH ×2 (08:35→16:31)
[2018-04-04] MEDS: RisperiDONE CONC 3 MG/3 ML SOLUTION ORAL.SYG PO SCH ×2 (08:35→16:31)
[2018-04-04] MEDS: DOCUSATE SODIUM 100 MG CAPSULE PO SCH ×2 (08:36→16:31)
[2018-04-04] MEDS: NYSTATIN 15 GM POWDER BOTTLE TP SCH ×2 (08:37→16:32)
[2018-04-04 16:38] VITALS: BP 120/70
[2018-04-04] MEDS: TraZODone HCL 100 MG TABLET PO SCH (20:07)
[2018-04-05] MEDS: LEVOTHYROXINE SODIUM 75 MCG TABLET PO SCH (06:58)
[2018-04-05] MEDS: PANTOPRAZOLE SODIUM 40 MG DR TABLET PO SCH (06:58)
[2018-04-05] MEDS: MULTIVITAMINS WITH MINERALS, THERAPEUTIC TABLET PO SCH (08:49)
[2018-04-05] MEDS: VALPROIC ACID 250 MG CAPSULE PO SCH ×2 (08:49→16:33)
[2018-04-05] MEDS: RisperiDONE CONC 3 MG/3 ML SOLUTION ORAL.SYG PO SCH ×2 (08:49→16:32)
[2018-04-05] MEDS: MEGESTROL ACETATE 400 MG/10 ML SUSPENSION UDCUP PO SCH ×2 (08:49→16:32)
[2018-04-05] MEDS: BENZTROPINE MESYLATE 2 MG TABLET PO SCH ×2 (08:49→16:33)
[2018-04-05] MEDS: DOCUSATE SODIUM 100 MG CAPSULE PO SCH ×2 (08:55→16:33)
[2018-04-05] MEDS: NYSTATIN 15 GM POWDER BOTTLE TP SCH ×2 (08:56→16:33)
[2018-04-05 09:26] VITALS: BP 141/87
[2018-04-05 18:52] VITALS: BP 103/60
[2018-04-05] MEDS: TraZODone HCL 100 MG TABLET PO SCH (20:08)
[2018-04-06] MEDS: LEVOTHYROXINE SODIUM 75 MCG TABLET PO SCH (06:53)
[2018-04-06] MEDS: PANTOPRAZOLE SODIUM 40 MG DR TABLET PO SCH (06:53)
[2018-04-06] MEDS: DOCUSATE SODIUM 100 MG CAPSULE PO SCH ×2 (09:00→16:25)
[2018-04-06] MEDS: NYSTATIN 15 GM POWDER BOTTLE TP SCH ×2 (09:00→16:26)
[2018-04-06] MEDS: BENZTROPINE MESYLATE 2 MG TABLET PO SCH ×2 (09:34→16:25)
[2018-04-06] MEDS: VALPROIC ACID 250 MG CAPSULE PO SCH ×2 (09:34→16:25)
[2018-04-06] MEDS: MULTIVITAMINS WITH MINERALS, THERAPEUTIC TABLET PO SCH (09:34)
[2018-04-06] MEDS: MEGESTROL ACETATE 400 MG/10 ML SUSPENSION UDCUP PO SCH ×2 (09:35→16:24)
[2018-04-06] MEDS: RisperiDONE CONC 3 MG/3 ML SOLUTION ORAL.SYG PO SCH ×2 (09:35→16:24)
[2018-04-06 18:07] VITALS: BP 103/78
[2018-04-06] MEDS: TraZODone HCL 100 MG TABLET PO SCH (20:45)
[2018-04-07] MEDS: LEVOTHYROXINE SODIUM 75 MCG TABLET PO SCH (06:56)
[2018-04-07] MEDS: PANTOPRAZOLE SODIUM 40 MG DR TABLET PO SCH (06:56)
[2018-04-07] MEDS: MULTIVITAMINS WITH MINERALS, THERAPEUTIC TABLET PO SCH (10:26)
[2018-04-07] MEDS: RisperiDONE CONC 3 MG/3 ML SOLUTION ORAL.SYG PO SCH ×2 (10:27→17:10)
[2018-04-07] MEDS: BENZTROPINE MESYLATE 2 MG TABLET PO SCH ×2 (10:27→17:11)
[2018-04-07] MEDS: VALPROIC ACID 250 MG CAPSULE PO SCH ×2 (10:27→17:09)
[2018-04-07] MEDS: DOCUSATE SODIUM 100 MG CAPSULE PO SCH ×2 (10:27→17:11)
[2018-04-07] MEDS: NYSTATIN 15 GM POWDER BOTTLE TP SCH ×2 (10:28→17:10)
[2018-04-07] MEDS: MEGESTROL ACETATE 400 MG/10 ML SUSPENSION UDCUP PO SCH ×2 (10:28→17:09)
[2018-04-07 16:00] VITALS: BP 101/67
[2018-04-07] MEDS: TraZODone HCL 100 MG TABLET PO SCH (20:13)
[2018-04-08] MEDS: LEVOTHYROXINE SODIUM 75 MCG TABLET PO SCH (07:02)
[2018-04-08] MEDS: PANTOPRAZOLE SODIUM 40 MG DR TABLET PO SCH (07:02)
[2018-04-08] MEDS: BENZTROPINE MESYLATE 2 MG TABLET PO SCH ×2 (08:37→17:15)
[2018-04-08] MEDS: RisperiDONE CONC 3 MG/3 ML SOLUTION ORAL.SYG PO SCH ×2 (08:38→17:13)
[2018-04-08] MEDS: VALPROIC ACID 250 MG CAPSULE PO SCH ×2 (08:38→17:13)
[2018-04-08] MEDS: MEGESTROL ACETATE 400 MG/10 ML SUSPENSION UDCUP PO SCH ×2 (08:38→17:13)
[2018-04-08] MEDS: MULTIVITAMINS WITH MINERALS, THERAPEUTIC TABLET PO SCH (08:38)
[2018-04-08] MEDS: DOCUSATE SODIUM 100 MG CAPSULE PO SCH ×2 (09:00→17:15)
[2018-04-08] MEDS: NYSTATIN 15 GM POWDER BOTTLE TP SCH ×2 (09:00→17:00)
[2018-04-08 09:19] VITALS: BP 115/68
[2018-04-08 16:00] VITALS: BP 104/65
[2018-04-08] MEDS: TraZODone HCL 100 MG TABLET PO SCH (20:16)
[2018-04-09] MEDS: PANTOPRAZOLE SODIUM 40 MG DR TABLET PO SCH (06:52)
[2018-04-09] MEDS: LEVOTHYROXINE SODIUM 75 MCG TABLET PO SCH (06:52)
[2018-04-09] MEDS: NYSTATIN 15 GM POWDER BOTTLE TP SCH ×2 (09:00→16:02)
[2018-04-09] MEDS: DOCUSATE SODIUM 100 MG CAPSULE PO SCH ×2 (09:00→16:02)
[2018-04-09] MEDS: MULTIVITAMINS WITH MINERALS, THERAPEUTIC TABLET PO SCH (09:05)
[2018-04-09] MEDS: BENZTROPINE MESYLATE 2 MG TABLET PO SCH ×2 (09:05→16:01)
[2018-04-09] MEDS: VALPROIC ACID 250 MG CAPSULE PO SCH ×2 (09:06→16:02)
[2018-04-09] MEDS: RisperiDONE CONC 3 MG/3 ML SOLUTION ORAL.SYG PO SCH ×2 (09:06→16:02)
[2018-04-09] MEDS: MEGESTROL ACETATE 400 MG/10 ML SUSPENSION UDCUP PO SCH ×2 (09:06→16:02)
[2018-04-09 11:21] VITALS: BP 124/73
[2018-04-09 16:00] VITALS: BP 107/64
[2018-04-09] MEDS: TraZODone HCL 100 MG TABLET PO SCH (20:20)
[2018-04-09 22:24] VITALS: BP 107/64
[2018-04-10] MEDS: LEVOTHYROXINE SODIUM 75 MCG TABLET PO SCH (06:58)
[2018-04-10] MEDS: PANTOPRAZOLE SODIUM 40 MG DR TABLET PO SCH (06:58)
[2018-04-10 08:30] VITALS: BP 122/64
[2018-04-10] MEDS: MEGESTROL ACETATE 400 MG/10 ML SUSPENSION UDCUP PO SCH ×2 (08:30→17:10)
[2018-04-10] MEDS: BENZTROPINE MESYLATE 2 MG TABLET PO SCH ×2 (08:30→17:09)
[2018-04-10] MEDS: RisperiDONE CONC 3 MG/3 ML SOLUTION ORAL.SYG PO SCH ×2 (08:30→17:10)
[2018-04-10] MEDS: MULTIVITAMINS WITH MINERALS, THERAPEUTIC TABLET PO SCH (08:30)
[2018-04-10] MEDS: VALPROIC ACID 250 MG CAPSULE PO SCH ×2 (08:30→17:10)
[2018-04-10] MEDS: DOCUSATE SODIUM 100 MG CAPSULE PO SCH ×2 (09:00→17:10)
[2018-04-10] MEDS: NYSTATIN 15 GM POWDER BOTTLE TP SCH ×2 (09:00→17:11)
[2018-04-10] MEDS: TraZODone HCL 100 MG TABLET PO SCH (20:25)
[2018-04-11] MEDS: PANTOPRAZOLE SODIUM 40 MG DR TABLET PO SCH (07:03)
[2018-04-11] MEDS: LEVOTHYROXINE SODIUM 75 MCG TABLET PO SCH (07:04)
[2018-04-11] MEDS: NYSTATIN 15 GM POWDER BOTTLE TP SCH ×2 (09:00→16:36)
[2018-04-11] MEDS: BENZTROPINE MESYLATE 2 MG TABLET PO SCH ×2 (09:39→16:36)
[2018-04-11] MEDS: MULTIVITAMINS WITH MINERALS, THERAPEUTIC TABLET PO SCH (09:39)
[2018-04-11] MEDS: RisperiDONE CONC 3 MG/3 ML SOLUTION ORAL.SYG PO SCH ×2 (09:39→16:36)
[2018-04-11] MEDS: DOCUSATE SODIUM 100 MG CAPSULE PO SCH ×2 (09:39→16:36)
[2018-04-11] MEDS: MEGESTROL ACETATE 400 MG/10 ML SUSPENSION UDCUP PO SCH ×2 (09:39→16:35)
[2018-04-11] MEDS: VALPROIC ACID 250 MG CAPSULE PO SCH ×2 (09:40→16:35)
[2018-04-11 10:00] VITALS: BP 107/65
[2018-04-11] MEDS: TraZODone HCL 100 MG TABLET PO SCH (20:11)
[2018-04-12] MEDS: LEVOTHYROXINE SODIUM 75 MCG TABLET PO SCH (06:40)
[2018-04-12] MEDS: PANTOPRAZOLE SODIUM 40 MG DR TABLET PO SCH (06:40)
[2018-04-12] MEDS: MULTIVITAMINS WITH MINERALS, THERAPEUTIC TABLET PO SCH (08:57)
[2018-04-12] MEDS: DOCUSATE SODIUM 100 MG CAPSULE PO SCH ×2 (08:58→16:00)
[2018-04-12] MEDS: BENZTROPINE MESYLATE 2 MG TABLET PO SCH ×2 (08:58→15:59)
[2018-04-12] MEDS: VALPROIC ACID 250 MG CAPSULE PO SCH ×2 (08:58→15:59)
[2018-04-12] MEDS: RisperiDONE CONC 3 MG/3 ML SOLUTION ORAL.SYG PO SCH ×2 (08:59→16:00)
[2018-04-12] MEDS: MEGESTROL ACETATE 400 MG/10 ML SUSPENSION UDCUP PO SCH ×2 (08:59→16:00)
[2018-04-12] MEDS: NYSTATIN 15 GM POWDER BOTTLE TP SCH ×2 (09:00→16:00)
[2018-04-12 10:38] VITALS: BP 125/50
[2018-04-12] MEDS: TraZODone HCL 100 MG TABLET PO SCH (20:44)
[2018-04-12 22:39] VITALS: BP 99/64
[2018-04-13] MEDS: LEVOTHYROXINE SODIUM 75 MCG TABLET PO SCH (06:19)
[2018-04-13] MEDS: PANTOPRAZOLE SODIUM 40 MG DR TABLET PO SCH (06:19)
[2018-04-13 09:20] VITALS: BP 121/92
[2018-04-13] MEDS: RisperiDONE CONC 3 MG/3 ML SOLUTION ORAL.SYG PO SCH ×2 (09:40→16:43)
[2018-04-13] MEDS: MEGESTROL ACETATE 400 MG/10 ML SUSPENSION UDCUP PO SCH ×2 (09:40→16:43)
[2018-04-13] MEDS: VALPROIC ACID 250 MG CAPSULE PO SCH ×2 (09:40→16:43)
[2018-04-13] MEDS: NYSTATIN 15 GM POWDER BOTTLE TP SCH ×2 (09:41→16:56)
[2018-04-13] MEDS: MULTIVITAMINS WITH MINERALS, THERAPEUTIC TABLET PO SCH (09:42)
[2018-04-13] MEDS: DOCUSATE SODIUM 100 MG CAPSULE PO SCH ×2 (09:43→16:44)
[2018-04-13] MEDS: BENZTROPINE MESYLATE 2 MG TABLET PO SCH ×2 (09:43→16:43)
[2018-04-13 19:56] VITALS: BP 102/48
[2018-04-13] MEDS: TraZODone HCL 100 MG TABLET PO SCH (20:10)
[2018-04-14] MEDS: PANTOPRAZOLE SODIUM 40 MG DR TABLET PO SCH (06:36)
[2018-04-14] MEDS: LEVOTHYROXINE SODIUM 75 MCG TABLET PO SCH (06:38)
[2018-04-14] MEDS: VALPROIC ACID 250 MG CAPSULE PO SCH ×2 (08:34→17:39)
[2018-04-14] MEDS: BENZTROPINE MESYLATE 2 MG TABLET PO SCH ×2 (08:34→17:38)
[2018-04-14] MEDS: RisperiDONE CONC 3 MG/3 ML SOLUTION ORAL.SYG PO SCH ×2 (08:34→17:37)
[2018-04-14] MEDS: MULTIVITAMINS WITH MINERALS, THERAPEUTIC TABLET PO SCH (08:35)
[2018-04-14] MEDS: MEGESTROL ACETATE 400 MG/10 ML SUSPENSION UDCUP PO SCH ×2 (08:35→17:37)
[2018-04-14] MEDS: DOCUSATE SODIUM 100 MG CAPSULE PO SCH ×2 (08:35→17:39)
[2018-04-14] MEDS: NYSTATIN 15 GM POWDER BOTTLE TP SCH ×2 (08:38→17:00)
[2018-04-14 16:59] VITALS: BP 102/76
[2018-04-14] MEDS: TraZODone HCL 100 MG TABLET PO SCH (20:06)
[2018-04-15] MEDS: LEVOTHYROXINE SODIUM 75 MCG TABLET PO SCH (06:52)
[2018-04-15] MEDS: PANTOPRAZOLE SODIUM 40 MG DR TABLET PO SCH (06:52)
[2018-04-15 08:00] VITALS: BP 111/91
[2018-04-15] MEDS: RisperiDONE CONC 3 MG/3 ML SOLUTION ORAL.SYG PO SCH ×2 (08:40→17:42)
[2018-04-15] MEDS: MEGESTROL ACETATE 400 MG/10 ML SUSPENSION UDCUP PO SCH ×2 (08:40→17:42)
[2018-04-15] MEDS: BENZTROPINE MESYLATE 2 MG TABLET PO SCH ×2 (08:40→17:41)
[2018-04-15] MEDS: VALPROIC ACID 250 MG CAPSULE PO SCH ×2 (08:40→17:41)
[2018-04-15] MEDS: MULTIVITAMINS WITH MINERALS, THERAPEUTIC TABLET PO SCH (08:40)
[2018-04-15] MEDS: DOCUSATE SODIUM 100 MG CAPSULE PO SCH ×2 (08:40→17:41)
[2018-04-15] MEDS: NYSTATIN 15 GM POWDER BOTTLE TP SCH (08:41)
[2018-04-15 16:00] VITALS: BP 126/77
[2018-04-15] MEDS: TraZODone HCL 100 MG TABLET PO SCH (20:09)
[2018-04-16] MEDS: LEVOTHYROXINE SODIUM 75 MCG TABLET PO SCH (06:35)
[2018-04-16] MEDS: PANTOPRAZOLE SODIUM 40 MG DR TABLET PO SCH (06:35)
[2018-04-16 09:00] VITALS: BP 119/88
[2018-04-16] MEDS: BENZTROPINE MESYLATE 2 MG TABLET PO SCH ×2 (10:06→16:32)
[2018-04-16] MEDS: DOCUSATE SODIUM 100 MG CAPSULE PO SCH ×2 (10:06→16:32)
[2018-04-16] MEDS: MULTIVITAMINS WITH MINERALS, THERAPEUTIC TABLET PO SCH (10:06)
[2018-04-16] MEDS: RisperiDONE CONC 3 MG/3 ML SOLUTION ORAL.SYG PO SCH ×2 (10:07→16:33)
[2018-04-16] MEDS: MEGESTROL ACETATE 400 MG/10 ML SUSPENSION UDCUP PO SCH ×2 (10:07→16:32)
[2018-04-16] MEDS: VALPROIC ACID 250 MG CAPSULE PO SCH ×2 (10:08→16:32)
[2018-04-16 18:28] VITALS: BP 128/55
[2018-04-16] MEDS: TraZODone HCL 100 MG TABLET PO SCH (20:07)
[2018-04-17] MEDS: LEVOTHYROXINE SODIUM 75 MCG TABLET PO SCH (06:40)
[2018-04-17] MEDS: PANTOPRAZOLE SODIUM 40 MG DR TABLET PO SCH (06:40)
[2018-04-17 08:00] VITALS: BP 101/64
[2018-04-17] MEDS: VALPROIC ACID 250 MG CAPSULE PO SCH ×2 (08:20→16:53)
[2018-04-17] MEDS: MEGESTROL ACETATE 400 MG/10 ML SUSPENSION UDCUP PO SCH ×2 (08:20→16:52)
[2018-04-17] MEDS: RisperiDONE CONC 3 MG/3 ML SOLUTION ORAL.SYG PO SCH ×2 (08:21→16:53)
[2018-04-17] MEDS: MULTIVITAMINS WITH MINERALS, THERAPEUTIC TABLET PO SCH (08:23)
[2018-04-17] MEDS: DOCUSATE SODIUM 100 MG CAPSULE PO SCH ×2 (08:23→16:53)
[2018-04-17] MEDS: BENZTROPINE MESYLATE 2 MG TABLET PO SCH ×2 (08:23→16:53)
[2018-04-17] MEDS: HALOPERIDOL 5 MG TABLET PO PRN (08:24)
[2018-04-17] MEDS: TraZODone HCL 100 MG TABLET PO SCH (20:02)
[2018-04-18] MEDS: PANTOPRAZOLE SODIUM 40 MG DR TABLET PO SCH (06:44)
[2018-04-18] MEDS: LEVOTHYROXINE SODIUM 75 MCG TABLET PO SCH (06:44)
[2018-04-18 08:39] VITALS: BP 118/60
[2018-04-18] MEDS: MEGESTROL ACETATE 400 MG/10 ML SUSPENSION UDCUP PO SCH ×2 (08:44→16:50)
[2018-04-18] MEDS: DOCUSATE SODIUM 100 MG CAPSULE PO SCH ×2 (08:44→16:49)
[2018-04-18] MEDS: VALPROIC ACID 250 MG CAPSULE PO SCH ×2 (08:45→16:49)
[2018-04-18] MEDS: BENZTROPINE MESYLATE 2 MG TABLET PO SCH ×2 (08:45→16:50)
[2018-04-18] MEDS: RisperiDONE CONC 3 MG/3 ML SOLUTION ORAL.SYG PO SCH ×2 (08:46→16:50)
[2018-04-18] MEDS: MULTIVITAMINS WITH MINERALS, THERAPEUTIC TABLET PO SCH (08:46)
[2018-04-18 17:28] VITALS: BP 104/69
[2018-04-18] MEDS: TraZODone HCL 100 MG TABLET PO SCH (20:14)
[2018-04-19] MEDS: LEVOTHYROXINE SODIUM 75 MCG TABLET PO SCH (06:52)
[2018-04-19] MEDS: PANTOPRAZOLE SODIUM 40 MG DR TABLET PO SCH (06:52)
[2018-04-19] MEDS: DOCUSATE SODIUM 100 MG CAPSULE PO SCH ×2 (09:07→16:24)
[2018-04-19] MEDS: BENZTROPINE MESYLATE 2 MG TABLET PO SCH ×2 (09:07→16:24)
[2018-04-19] MEDS: MEGESTROL ACETATE 400 MG/10 ML SUSPENSION UDCUP PO SCH ×2 (09:08→16:25)
[2018-04-19] MEDS: VALPROIC ACID 250 MG CAPSULE PO SCH ×2 (09:08→16:24)
[2018-04-19] MEDS: RisperiDONE CONC 3 MG/3 ML SOLUTION ORAL.SYG PO SCH ×2 (09:09→16:25)
[2018-04-19] MEDS: MULTIVITAMINS WITH MINERALS, THERAPEUTIC TABLET PO SCH (09:09)
[2018-04-19 09:39] VITALS: BP 144/60
[2018-04-19 16:37] VITALS: BP 119/74
[2018-04-19] MEDS: TraZODone HCL 100 MG TABLET PO SCH (20:33)
[2018-04-20] MEDS: LEVOTHYROXINE SODIUM 75 MCG TABLET PO SCH (06:29)
[2018-04-20] MEDS: PANTOPRAZOLE SODIUM 40 MG DR TABLET PO SCH (06:29)
[2018-04-20] MEDS: BENZTROPINE MESYLATE 2 MG TABLET PO SCH ×2 (08:13→17:32)
[2018-04-20] MEDS: VALPROIC ACID 250 MG CAPSULE PO SCH ×2 (08:13→17:32)
[2018-04-20] MEDS: RisperiDONE CONC 3 MG/3 ML SOLUTION ORAL.SYG PO SCH ×2 (08:14→17:32)
[2018-04-20] MEDS: MEGESTROL ACETATE 400 MG/10 ML SUSPENSION UDCUP PO SCH ×2 (08:14→17:32)
[2018-04-20] MEDS: MULTIVITAMINS WITH MINERALS, THERAPEUTIC TABLET PO SCH (08:14)
[2018-04-20] MEDS: DOCUSATE SODIUM 100 MG CAPSULE PO SCH ×2 (08:14→17:32)
[2018-04-20 14:58] VITALS: BP 106/73
[2018-04-20 18:04] VITALS: BP 110/79
[2018-04-20] MEDS: TraZODone HCL 100 MG TABLET PO SCH (20:16)
[2018-04-21] MEDS: PANTOPRAZOLE SODIUM 40 MG DR TABLET PO SCH (06:00)
[2018-04-21] MEDS: LEVOTHYROXINE SODIUM 75 MCG TABLET PO SCH (06:00)
[2018-04-21] MEDS: MULTIVITAMINS WITH MINERALS, THERAPEUTIC TABLET PO SCH (09:40)
[2018-04-21] MEDS: BENZTROPINE MESYLATE 2 MG TABLET PO SCH ×2 (09:41→16:15)
[2018-04-21] MEDS: DOCUSATE SODIUM 100 MG CAPSULE PO SCH ×2 (09:41→16:15)
[2018-04-21] MEDS: RisperiDONE CONC 3 MG/3 ML SOLUTION ORAL.SYG PO SCH ×2 (09:42→16:15)
[2018-04-21] MEDS: MEGESTROL ACETATE 400 MG/10 ML SUSPENSION UDCUP PO SCH ×2 (09:42→16:15)
[2018-04-21] MEDS: VALPROIC ACID 250 MG CAPSULE PO SCH ×2 (09:43→16:15)
[2018-04-21 10:40] VITALS: BP 105/69
[2018-04-21 17:19] VITALS: BP 109/67
[2018-04-21] MEDS: TraZODone HCL 100 MG TABLET PO SCH (20:16)
[2018-04-22] MEDS: PANTOPRAZOLE SODIUM 40 MG DR TABLET PO SCH (07:04)
[2018-04-22] MEDS: LEVOTHYROXINE SODIUM 75 MCG TABLET PO SCH (07:04)
[2018-04-22] MEDS: VALPROIC ACID 250 MG CAPSULE PO SCH ×2 (08:03→16:22)
[2018-04-22] MEDS: MULTIVITAMINS WITH MINERALS, THERAPEUTIC TABLET PO SCH (08:03)
[2018-04-22] MEDS: DOCUSATE SODIUM 100 MG CAPSULE PO SCH ×2 (08:03→16:21)
[2018-04-22] MEDS: RisperiDONE CONC 3 MG/3 ML SOLUTION ORAL.SYG PO SCH ×2 (08:03→16:29)
[2018-04-22] MEDS: BENZTROPINE MESYLATE 2 MG TABLET PO SCH ×2 (08:03→16:21)
[2018-04-22] MEDS: MEGESTROL ACETATE 400 MG/10 ML SUSPENSION UDCUP PO SCH ×2 (08:03→16:29)
[2018-04-22 10:08] VITALS: BP 119/55
[2018-04-22 17:02] VITALS: BP 91/56
[2018-04-22] MEDS: TraZODone HCL 100 MG TABLET PO SCH (20:33)
[2018-04-23] MEDS: LEVOTHYROXINE SODIUM 75 MCG TABLET PO SCH (07:08)
[2018-04-23] MEDS: PANTOPRAZOLE SODIUM 40 MG DR TABLET PO SCH (07:08)
[2018-04-23] MEDS: MEGESTROL ACETATE 400 MG/10 ML SUSPENSION UDCUP PO SCH ×2 (07:54→17:19)
[2018-04-23] MEDS: MULTIVITAMINS WITH MINERALS, THERAPEUTIC TABLET PO SCH (07:56)
[2018-04-23] MEDS: RisperiDONE CONC 3 MG/3 ML SOLUTION ORAL.SYG PO SCH ×2 (07:56→17:19)
[2018-04-23] MEDS: BENZTROPINE MESYLATE 2 MG TABLET PO SCH ×2 (07:56→17:21)
[2018-04-23] MEDS: DOCUSATE SODIUM 100 MG CAPSULE PO SCH ×2 (07:56→17:20)
[2018-04-23] MEDS: VALPROIC ACID 250 MG CAPSULE PO SCH ×2 (07:57→17:19)
[2018-04-23 08:57] VITALS: BP 131/66
[2018-04-23 19:39] VITALS: BP 121/69
[2018-04-23] MEDS: TraZODone HCL 100 MG TABLET PO SCH (20:57)
[2018-04-24] MEDS: PANTOPRAZOLE SODIUM 40 MG DR TABLET PO SCH (06:39)
[2018-04-24] MEDS: LEVOTHYROXINE SODIUM 75 MCG TABLET PO SCH (06:39)
[2018-04-24] MEDS: DOCUSATE SODIUM 100 MG CAPSULE PO SCH ×2 (08:35→16:55)
[2018-04-24] MEDS: MULTIVITAMINS WITH MINERALS, THERAPEUTIC TABLET PO SCH (08:35)
[2018-04-24] MEDS: VALPROIC ACID 250 MG CAPSULE PO SCH ×2 (08:36→16:50)
[2018-04-24] MEDS: RisperiDONE CONC 3 MG/3 ML SOLUTION ORAL.SYG PO SCH ×2 (08:36→16:50)
[2018-04-24] MEDS: MEGESTROL ACETATE 400 MG/10 ML SUSPENSION UDCUP PO SCH ×2 (08:37→16:50)
[2018-04-24] MEDS: BENZTROPINE MESYLATE 2 MG TABLET PO SCH ×2 (09:13→16:49)
[2018-04-24 09:25] VITALS: BP 120/70
[2018-04-24] MEDS ORDERED: TUBERCULIN, PURIFIED PROTEIN DERIVATIVE 5 TU/0.1 ML SYRINGE ID ONE (15:15)
[2018-04-24 19:13] VITALS: BP 128/74
[2018-04-24] MEDS: TraZODone HCL 100 MG TABLET PO SCH (20:09)
[2018-04-25] MEDS: LEVOTHYROXINE SODIUM 75 MCG TABLET PO SCH (06:53)
[2018-04-25] MEDS: PANTOPRAZOLE SODIUM 40 MG DR TABLET PO SCH (06:53)
[2018-04-25 09:18] VITALS: BP 125/82
[2018-04-25] MEDS: BENZTROPINE MESYLATE 2 MG TABLET PO SCH ×2 (09:44→16:53)
[2018-04-25] MEDS: DOCUSATE SODIUM 100 MG CAPSULE PO SCH ×2 (09:44→16:53)
[2018-04-25] MEDS: MULTIVITAMINS WITH MINERALS, THERAPEUTIC TABLET PO SCH (09:44)
[2018-04-25] MEDS: VALPROIC ACID 250 MG CAPSULE PO SCH ×2 (09:45→16:53)
[2018-04-25] MEDS: MEGESTROL ACETATE 400 MG/10 ML SUSPENSION UDCUP PO SCH ×2 (09:46→16:52)
[2018-04-25] MEDS: RisperiDONE CONC 3 MG/3 ML SOLUTION ORAL.SYG PO SCH ×2 (09:46→16:52)
[2018-04-25 17:32] VITALS: BP 141/91
[2018-04-25] MEDS: TraZODone HCL 100 MG TABLET PO SCH (20:16)
[2018-04-26] MEDS: PANTOPRAZOLE SODIUM 40 MG DR TABLET PO SCH (07:11)
[2018-04-26] MEDS: LEVOTHYROXINE SODIUM 75 MCG TABLET PO SCH (07:12)
[2018-04-26 08:55] VITALS: BP 110/55
[2018-04-26] MEDS: VALPROIC ACID 250 MG CAPSULE PO SCH ×2 (09:40→16:14)
[2018-04-26] MEDS: DOCUSATE SODIUM 100 MG CAPSULE PO SCH ×2 (09:41→16:15)
[2018-04-26] MEDS: MULTIVITAMINS WITH MINERALS, THERAPEUTIC TABLET PO SCH (09:41)
[2018-04-26] MEDS: MEGESTROL ACETATE 400 MG/10 ML SUSPENSION UDCUP PO SCH ×2 (09:41→16:15)
[2018-04-26] MEDS: RisperiDONE CONC 3 MG/3 ML SOLUTION ORAL.SYG PO SCH ×2 (09:41→16:15)
[2018-04-26] MEDS: BENZTROPINE MESYLATE 2 MG TABLET PO SCH ×2 (09:41→16:15)
[2018-04-26 18:06] VITALS: BP 105/68
[2018-04-26] MEDS: TraZODone HCL 100 MG TABLET PO SCH (20:10)
[2018-04-27] MEDS: LEVOTHYROXINE SODIUM 75 MCG TABLET PO SCH (06:35)
[2018-04-27] MEDS: PANTOPRAZOLE SODIUM 40 MG DR TABLET PO SCH (06:35)
[2018-04-27] MEDS: BENZTROPINE MESYLATE 2 MG TABLET PO SCH ×2 (07:58→16:22)
[2018-04-27] MEDS: DOCUSATE SODIUM 100 MG CAPSULE PO SCH ×2 (07:58→16:22)
[2018-04-27] MEDS: VALPROIC ACID 250 MG CAPSULE PO SCH ×2 (07:58→16:22)
[2018-04-27] MEDS: RisperiDONE CONC 3 MG/3 ML SOLUTION ORAL.SYG PO SCH ×2 (07:59→16:23)
[2018-04-27] MEDS: MULTIVITAMINS WITH MINERALS, THERAPEUTIC TABLET PO SCH (07:59)
[2018-04-27] MEDS: MEGESTROL ACETATE 400 MG/10 ML SUSPENSION UDCUP PO SCH ×2 (07:59→16:23)
[2018-04-27 10:15] VITALS: BP 113/70
[2018-04-27 17:43] VITALS: BP 108/69
[2018-04-27] MEDS: TraZODone HCL 100 MG TABLET PO SCH (20:24)
[2018-04-28] MEDS: LEVOTHYROXINE SODIUM 75 MCG TABLET PO SCH (06:43)
[2018-04-28] MEDS: PANTOPRAZOLE SODIUM 40 MG DR TABLET PO SCH (06:44)
[2018-04-28] MEDS: DOCUSATE SODIUM 100 MG CAPSULE PO SCH ×2 (09:11→17:55)
[2018-04-28] MEDS: BENZTROPINE MESYLATE 2 MG TABLET PO SCH ×2 (09:12→17:55)
[2018-04-28] MEDS: MULTIVITAMINS WITH MINERALS, THERAPEUTIC TABLET PO SCH (09:12)
[2018-04-28] MEDS: VALPROIC ACID 250 MG CAPSULE PO SCH ×2 (09:13→17:52)
[2018-04-28] MEDS: RisperiDONE CONC 3 MG/3 ML SOLUTION ORAL.SYG PO SCH ×2 (09:13→17:53)
[2018-04-28] MEDS: MEGESTROL ACETATE 400 MG/10 ML SUSPENSION UDCUP PO SCH ×2 (09:14→17:52)
[2018-04-28] MEDS: ONDANSETRON HCL 4 MG TABLET PO PRN (11:26)
[2018-04-28 16:00] VITALS: BP 129/58
[2018-04-28] MEDS: TraZODone HCL 100 MG TABLET PO SCH (20:05)
[2018-04-29] MEDS: PANTOPRAZOLE SODIUM 40 MG DR TABLET PO SCH (07:03)
[2018-04-29] MEDS: LEVOTHYROXINE SODIUM 75 MCG TABLET PO SCH (07:03)
[2018-04-29] MEDS: MULTIVITAMINS WITH MINERALS, THERAPEUTIC TABLET PO SCH (08:59)
[2018-04-29] MEDS: BENZTROPINE MESYLATE 2 MG TABLET PO SCH ×2 (08:59→16:43)
[2018-04-29] MEDS: DOCUSATE SODIUM 100 MG CAPSULE PO SCH ×2 (09:00→16:43)
[2018-04-29] MEDS: MEGESTROL ACETATE 400 MG/10 ML SUSPENSION UDCUP PO SCH ×2 (09:00→16:43)
[2018-04-29] MEDS: VALPROIC ACID 250 MG CAPSULE PO SCH ×2 (09:00→16:43)
[2018-04-29] MEDS: RisperiDONE CONC 3 MG/3 ML SOLUTION ORAL.SYG PO SCH ×2 (09:00→16:44)
[2018-04-29 16:00] VITALS: BP 100/58
[2018-04-29] MEDS: TraZODone HCL 100 MG TABLET PO SCH (20:19)
[2018-04-30] MEDS: PANTOPRAZOLE SODIUM 40 MG DR TABLET PO SCH (06:59)
[2018-04-30] MEDS: LEVOTHYROXINE SODIUM 75 MCG TABLET PO SCH (06:59)
[2018-04-30 08:00] VITALS: BP 106/63
[2018-04-30] MEDS: BENZTROPINE MESYLATE 2 MG TABLET PO SCH ×2 (08:25→17:22)
[2018-04-30] MEDS: DOCUSATE SODIUM 100 MG CAPSULE PO SCH ×2 (08:25→17:25)
[2018-04-30] MEDS: MULTIVITAMINS WITH MINERALS, THERAPEUTIC TABLET PO SCH (08:25)
[2018-04-30] MEDS: MEGESTROL ACETATE 400 MG/10 ML SUSPENSION UDCUP PO SCH ×2 (08:26→17:22)
[2018-04-30] MEDS: RisperiDONE CONC 3 MG/3 ML SOLUTION ORAL.SYG PO SCH ×2 (08:26→17:22)
[2018-04-30] MEDS: VALPROIC ACID 250 MG CAPSULE PO SCH ×2 (08:27→17:22)
[2018-04-30] MEDS: HALOPERIDOL 5 MG TABLET PO PRN (10:51)
[2018-04-30 18:04] VITALS: BP 111/65
[2018-04-30] MEDS: TraZODone HCL 100 MG TABLET PO SCH (20:14)
[2018-05-01] MEDS: LEVOTHYROXINE SODIUM 75 MCG TABLET PO SCH (06:37)
[2018-05-01] MEDS: PANTOPRAZOLE SODIUM 40 MG DR TABLET PO SCH (06:38)
[2018-05-01 08:20] VITALS: BP 106/75
[2018-05-01] MEDS: RisperiDONE CONC 3 MG/3 ML SOLUTION ORAL.SYG PO SCH ×2 (10:55→16:24)
[2018-05-01] MEDS: MEGESTROL ACETATE 400 MG/10 ML SUSPENSION UDCUP PO SCH ×2 (10:55→16:23)
[2018-05-01] MEDS: DOCUSATE SODIUM 100 MG CAPSULE PO SCH ×2 (10:58→16:22)
[2018-05-01] MEDS: HALOPERIDOL 5 MG TABLET PO PRN (10:58)
[2018-05-01] MEDS: VALPROIC ACID 250 MG CAPSULE PO SCH ×2 (10:58→16:24)
[2018-05-01] MEDS: BENZTROPINE MESYLATE 2 MG TABLET PO SCH ×2 (10:58→16:23)
[2018-05-01] MEDS: MULTIVITAMINS WITH MINERALS, THERAPEUTIC TABLET PO SCH (10:58)
[2018-05-01 16:43] VITALS: BP 128/77
[2018-05-01] MEDS: TraZODone HCL 100 MG TABLET PO SCH (20:08)
[2018-05-02] MEDS: PANTOPRAZOLE SODIUM 40 MG DR TABLET PO SCH (06:43)
[2018-05-02] MEDS: LEVOTHYROXINE SODIUM 75 MCG TABLET PO SCH (06:43)
[2018-05-02 08:00] VITALS: BP 99/60
[2018-05-02] MEDS: VALPROIC ACID 250 MG CAPSULE PO SCH ×2 (09:53→16:23)
[2018-05-02] MEDS: MEGESTROL ACETATE 400 MG/10 ML SUSPENSION UDCUP PO SCH ×2 (09:53→16:24)
[2018-05-02] MEDS: RisperiDONE CONC 3 MG/3 ML SOLUTION ORAL.SYG PO SCH ×2 (09:53→16:24)
[2018-05-02] MEDS: DOCUSATE SODIUM 100 MG CAPSULE PO SCH ×2 (09:55→16:24)
[2018-05-02] MEDS: BENZTROPINE MESYLATE 2 MG TABLET PO SCH ×2 (09:55→16:25)
[2018-05-02] MEDS: MULTIVITAMINS WITH MINERALS, THERAPEUTIC TABLET PO SCH (09:55)
[2018-05-02 16:29] VITALS: BP 120/67
[2018-05-02] MEDS: TraZODone HCL 100 MG TABLET PO SCH (21:12)
[2018-05-03] MEDS: LEVOTHYROXINE SODIUM 75 MCG TABLET PO SCH (07:07)
[2018-05-03] MEDS: PANTOPRAZOLE SODIUM 40 MG DR TABLET PO SCH (07:07)
[2018-05-03] MEDS: RisperiDONE CONC 3 MG/3 ML SOLUTION ORAL.SYG PO SCH ×2 (09:28→16:16)
[2018-05-03] MEDS: MEGESTROL ACETATE 400 MG/10 ML SUSPENSION UDCUP PO SCH ×2 (09:28→16:16)
[2018-05-03] MEDS: VALPROIC ACID 250 MG CAPSULE PO SCH ×2 (09:28→16:16)
[2018-05-03] MEDS: DOCUSATE SODIUM 100 MG CAPSULE PO SCH ×2 (09:29→16:16)
[2018-05-03] MEDS: BENZTROPINE MESYLATE 2 MG TABLET PO SCH ×2 (09:29→16:16)
[2018-05-03] MEDS: MULTIVITAMINS WITH MINERALS, THERAPEUTIC TABLET PO SCH (09:29)
[2018-05-03 09:57] VITALS: BP 101/59
[2018-05-03 19:10] VITALS: BP 97/56
[2018-05-03] MEDS: TraZODone HCL 100 MG TABLET PO SCH (20:39)
[2018-05-04] MEDS: LEVOTHYROXINE SODIUM 75 MCG TABLET PO SCH (06:25)
[2018-05-04] MEDS: PANTOPRAZOLE SODIUM 40 MG DR TABLET PO SCH (06:26)
[2018-05-04] MEDS: BENZTROPINE MESYLATE 2 MG TABLET PO SCH ×2 (08:56→17:29)
[2018-05-04] MEDS: DOCUSATE SODIUM 100 MG CAPSULE PO SCH ×2 (08:56→17:29)
[2018-05-04] MEDS: MULTIVITAMINS WITH MINERALS, THERAPEUTIC TABLET PO SCH (08:56)
[2018-05-04] MEDS: MEGESTROL ACETATE 400 MG/10 ML SUSPENSION UDCUP PO SCH ×2 (08:56→17:30)
[2018-05-04] MEDS: RisperiDONE CONC 3 MG/3 ML SOLUTION ORAL.SYG PO SCH ×2 (08:57→17:30)
[2018-05-04 09:25] VITALS: BP 119/88
[2018-05-04] MEDS: VALPROIC ACID 250 MG CAPSULE PO SCH ×2 (10:03→17:30)
[2018-05-04 20:11] VITALS: BP 130/90
[2018-05-04] MEDS: TraZODone HCL 100 MG TABLET PO SCH (20:29)
[2018-05-05 00:30] VITALS: BP 109/66
[2018-05-05] MEDS: LEVOTHYROXINE SODIUM 75 MCG TABLET PO SCH (07:04)
[2018-05-05] MEDS: PANTOPRAZOLE SODIUM 40 MG DR TABLET PO SCH (07:04)
[2018-05-05] MEDS: DOCUSATE SODIUM 100 MG CAPSULE PO SCH ×2 (09:36→16:12)
[2018-05-05] MEDS: MULTIVITAMINS WITH MINERALS, THERAPEUTIC TABLET PO SCH (09:36)
[2018-05-05] MEDS: BENZTROPINE MESYLATE 2 MG TABLET PO SCH ×2 (09:36→16:12)
[2018-05-05] MEDS: VALPROIC ACID 250 MG CAPSULE PO SCH ×2 (09:37→16:13)
[2018-05-05] MEDS: RisperiDONE CONC 3 MG/3 ML SOLUTION ORAL.SYG PO SCH ×2 (09:37→16:12)
[2018-05-05] MEDS: MEGESTROL ACETATE 400 MG/10 ML SUSPENSION UDCUP PO SCH ×2 (09:38→16:12)
[2018-05-05 16:24] VITALS: BP 113/65
[2018-05-05] MEDS: TraZODone HCL 100 MG TABLET PO SCH (20:08)
[2018-05-06 06:08] LABS: BASOPHILS % (AUTO) 0.4 % (0.0-2.0); EOSINOPHILS % (AUTO) 0.1 % (1.0-6.0); HEMOGLOBIN 14.8 g/dL (12.0-16.0); LYMPHOCYTES # (AUTO) 3.2 K/uL (1.0-4.8); LYMPHOCYTES % (AUTO) 56.6 % (22.0-44.0); MEAN CORPUSCULAR HEMOGLOBIN 33.4 pg (26.0-34.0); MEAN CORPUSCULAR HGB CONC 34.4 G/dL (31.0-37.0); MEAN CORPUSCULAR VOLUME 97 fL (80-100); MONOCYTES # (AUTO) 0.4 K/uL (0.1-1.0); MONOCYTES % (AUTO) 7.4 % (2.0-9.0); NEUTROPHILS % (AUTO) 35.5 % (40.0-70.0); PLATELET COUNT (AUTO) 172 K/uL (150-450); RED BLOOD CELL COUNT(AUTO) 4.43 MIL/uL (4.00-5.20); RED CELL DISTRIBUTION WIDTH 14.7 % (11.5-14.5)
[2018-05-06 06:16] LABS: CREATININE 0.99 mg/dL (0.60-1.30); POTASSIUM 4.1 mmol/L (3.5-5.1)
[2018-05-06] MEDS: LEVOTHYROXINE SODIUM 75 MCG TABLET PO SCH (06:50)
[2018-05-06] MEDS: PANTOPRAZOLE SODIUM 40 MG DR TABLET PO SCH (06:50)
[2018-05-06] MEDS: MEGESTROL ACETATE 400 MG/10 ML SUSPENSION UDCUP PO SCH ×2 (08:53→17:11)
[2018-05-06] MEDS: BENZTROPINE MESYLATE 2 MG TABLET PO SCH ×2 (08:53→17:10)
[2018-05-06] MEDS: MULTIVITAMINS WITH MINERALS, THERAPEUTIC TABLET PO SCH (08:53)
[2018-05-06] MEDS: DOCUSATE SODIUM 100 MG CAPSULE PO SCH ×2 (08:53→17:11)
[2018-05-06] MEDS: VALPROIC ACID 250 MG CAPSULE PO SCH ×2 (08:54→17:10)
[2018-05-06] MEDS: RisperiDONE CONC 3 MG/3 ML SOLUTION ORAL.SYG PO SCH ×2 (08:54→17:11)
[2018-05-06 09:20] VITALS: BP 101/54
[2018-05-06] MEDS: MAGNESIUM HYDROXIDE SUSPENSION 30 ML UDCUP PO PRN (14:30)
[2018-05-06 16:00] VITALS: BP 117/72
[2018-05-06] MEDS: TraZODone HCL 100 MG TABLET PO SCH (20:18)
[2018-05-07] MEDS: LEVOTHYROXINE SODIUM 75 MCG TABLET PO SCH (06:50)
[2018-05-07] MEDS: PANTOPRAZOLE SODIUM 40 MG DR TABLET PO SCH (06:50)
[2018-05-07] MEDS: MULTIVITAMINS WITH MINERALS, THERAPEUTIC TABLET PO SCH (08:48)
[2018-05-07] MEDS: BENZTROPINE MESYLATE 2 MG TABLET PO SCH ×2 (08:48→16:20)
[2018-05-07] MEDS: DOCUSATE SODIUM 100 MG CAPSULE PO SCH ×2 (08:48→16:20)
[2018-05-07] MEDS: MEGESTROL ACETATE 400 MG/10 ML SUSPENSION UDCUP PO SCH ×2 (08:49→16:19)
[2018-05-07] MEDS: RisperiDONE CONC 3 MG/3 ML SOLUTION ORAL.SYG PO SCH ×2 (08:49→16:19)
[2018-05-07] MEDS: VALPROIC ACID 250 MG CAPSULE PO SCH ×2 (08:49→16:19)
[2018-05-07 09:23] VITALS: BP 109/63
[2018-05-07 17:12] VITALS: BP 108/58
[2018-05-07] MEDS: TraZODone HCL 100 MG TABLET PO SCH (20:05)
[2018-05-08] MEDS: PANTOPRAZOLE SODIUM 40 MG DR TABLET PO SCH (06:49)
[2018-05-08] MEDS: LEVOTHYROXINE SODIUM 75 MCG TABLET PO SCH (06:49)
[2018-05-08] MEDS: RisperiDONE CONC 3 MG/3 ML SOLUTION ORAL.SYG PO SCH ×2 (08:31→18:07)
[2018-05-08] MEDS: MULTIVITAMINS WITH MINERALS, THERAPEUTIC TABLET PO SCH (08:31)
[2018-05-08] MEDS: MEGESTROL ACETATE 400 MG/10 ML SUSPENSION UDCUP PO SCH ×2 (08:31→18:07)
[2018-05-08] MEDS: BENZTROPINE MESYLATE 2 MG TABLET PO SCH ×2 (08:31→18:07)
[2018-05-08] MEDS: DOCUSATE SODIUM 100 MG CAPSULE PO SCH ×2 (08:31→18:07)
[2018-05-08] MEDS: VALPROIC ACID 250 MG CAPSULE PO SCH ×2 (08:32→18:07)
[2018-05-08 09:52] VITALS: BP 106/58
[2018-05-08 16:00] VITALS: BP 103/65
[2018-05-08] MEDS: TraZODone HCL 100 MG TABLET PO SCH (20:15)
[2018-05-09] MEDS: PANTOPRAZOLE SODIUM 40 MG DR TABLET PO SCH (06:57)
[2018-05-09] MEDS: LEVOTHYROXINE SODIUM 75 MCG TABLET PO SCH (06:57)
[2018-05-09 08:15] VITALS: BP 119/63
[2018-05-09] MEDS: RisperiDONE CONC 3 MG/3 ML SOLUTION ORAL.SYG PO SCH ×2 (08:19→16:33)
[2018-05-09] MEDS: VALPROIC ACID 250 MG CAPSULE PO SCH ×2 (08:19→16:33)
[2018-05-09] MEDS: DOCUSATE SODIUM 100 MG CAPSULE PO SCH ×2 (08:21→16:33)
[2018-05-09] MEDS: BENZTROPINE MESYLATE 2 MG TABLET PO SCH ×2 (08:21→16:34)
[2018-05-09] MEDS: MULTIVITAMINS WITH MINERALS, THERAPEUTIC TABLET PO SCH (08:21)
[2018-05-09] MEDS: MEGESTROL ACETATE 400 MG/10 ML SUSPENSION UDCUP PO SCH ×2 (08:22→16:33)
[2018-05-09] MEDS: LACTULOSE 20 GM/30 ML SOLUTION UDCUP PO PRN (14:13)
[2018-05-09 16:30] VITALS: BP 108/60
[2018-05-09] MEDS: TraZODone HCL 100 MG TABLET PO SCH (20:06)
[2018-05-10] MEDS: LEVOTHYROXINE SODIUM 75 MCG TABLET PO SCH (07:01)
[2018-05-10] MEDS: PANTOPRAZOLE SODIUM 40 MG DR TABLET PO SCH (07:01)
[2018-05-10] MEDS: VALPROIC ACID 250 MG CAPSULE PO SCH ×2 (08:08→16:56)
[2018-05-10] MEDS: MULTIVITAMINS WITH MINERALS, THERAPEUTIC TABLET PO SCH (08:09)
[2018-05-10] MEDS: DOCUSATE SODIUM 100 MG CAPSULE PO SCH ×2 (08:09→16:55)
[2018-05-10] MEDS: BENZTROPINE MESYLATE 2 MG TABLET PO SCH ×2 (08:09→16:55)
[2018-05-10] MEDS: RisperiDONE CONC 3 MG/3 ML SOLUTION ORAL.SYG PO SCH ×2 (08:10→16:56)
[2018-05-10] MEDS: MEGESTROL ACETATE 400 MG/10 ML SUSPENSION UDCUP PO SCH ×2 (08:10→16:56)
[2018-05-10 08:46] VITALS: BP 109/54
[2018-05-10 17:43] VITALS: BP 123/70
[2018-05-10] MEDS: TraZODone HCL 100 MG TABLET PO SCH (20:09)
[2018-05-11] MEDS: PANTOPRAZOLE SODIUM 40 MG DR TABLET PO SCH (06:37)
[2018-05-11] MEDS: LEVOTHYROXINE SODIUM 75 MCG TABLET PO SCH (06:37)
[2018-05-11] MEDS: DOCUSATE SODIUM 100 MG CAPSULE PO SCH ×2 (08:35→16:32)
[2018-05-11] MEDS: VALPROIC ACID 250 MG CAPSULE PO SCH ×2 (08:35→16:31)
[2018-05-11] MEDS: BENZTROPINE MESYLATE 2 MG TABLET PO SCH ×2 (08:35→16:31)
[2018-05-11] MEDS: MEGESTROL ACETATE 400 MG/10 ML SUSPENSION UDCUP PO SCH ×2 (08:35→16:31)
[2018-05-11] MEDS: MULTIVITAMINS WITH MINERALS, THERAPEUTIC TABLET PO SCH (08:35)
[2018-05-11] MEDS: RisperiDONE CONC 3 MG/3 ML SOLUTION ORAL.SYG PO SCH ×2 (08:36→16:33)
[2018-05-11 09:17] VITALS: BP 132/52
[2018-05-11 16:11] VITALS: BP 107/69
[2018-05-11] MEDS: TraZODone HCL 100 MG TABLET PO SCH (21:06)
[2018-05-12] MEDS: LEVOTHYROXINE SODIUM 75 MCG TABLET PO SCH (07:18)
[2018-05-12] MEDS: PANTOPRAZOLE SODIUM 40 MG DR TABLET PO SCH (07:18)
[2018-05-12 08:58] VITALS: BP 128/78
[2018-05-12] MEDS: BENZTROPINE MESYLATE 2 MG TABLET PO SCH ×2 (09:00→16:33)
[2018-05-12] MEDS: RisperiDONE CONC 3 MG/3 ML SOLUTION ORAL.SYG PO SCH ×2 (09:00→16:34)
[2018-05-12] MEDS: MULTIVITAMINS WITH MINERALS, THERAPEUTIC TABLET PO SCH (09:00)
[2018-05-12] MEDS: MEGESTROL ACETATE 400 MG/10 ML SUSPENSION UDCUP PO SCH ×2 (09:00→16:34)
[2018-05-12] MEDS: DOCUSATE SODIUM 100 MG CAPSULE PO SCH ×2 (09:00→16:33)
[2018-05-12] MEDS: VALPROIC ACID 250 MG CAPSULE PO SCH ×2 (09:00→16:33)
[2018-05-12] MEDS: SERTRALINE HCL 50 MG TABLET PO SCH (15:06)
[2018-05-12 16:00] VITALS: BP 108/64
[2018-05-12] MEDS: TraZODone HCL 100 MG TABLET PO SCH (20:02)
[2018-05-13] MEDS: PANTOPRAZOLE SODIUM 40 MG DR TABLET PO SCH (07:03)
[2018-05-13] MEDS: LEVOTHYROXINE SODIUM 75 MCG TABLET PO SCH (07:03)
[2018-05-13] MEDS: MULTIVITAMINS WITH MINERALS, THERAPEUTIC TABLET PO SCH (08:49)
[2018-05-13] MEDS: SERTRALINE HCL 50 MG TABLET PO SCH (08:49)
[2018-05-13] MEDS: BENZTROPINE MESYLATE 2 MG TABLET PO SCH ×2 (08:50→16:34)
[2018-05-13] MEDS: DOCUSATE SODIUM 100 MG CAPSULE PO SCH ×2 (08:50→16:34)
[2018-05-13] MEDS: VALPROIC ACID 250 MG CAPSULE PO SCH ×2 (08:52→16:32)
[2018-05-13] MEDS: MEGESTROL ACETATE 400 MG/10 ML SUSPENSION UDCUP PO SCH ×2 (08:53→16:32)
[2018-05-13] MEDS: RisperiDONE CONC 3 MG/3 ML SOLUTION ORAL.SYG PO SCH ×2 (08:55→16:32)
[2018-05-13 12:44] VITALS: BP 117/57
[2018-05-13] MEDS: TraZODone HCL 100 MG TABLET PO SCH (20:47)
[2018-05-14] MEDS: PANTOPRAZOLE SODIUM 40 MG DR TABLET PO SCH (06:41)
[2018-05-14] MEDS: LEVOTHYROXINE SODIUM 75 MCG TABLET PO SCH (06:42)
[2018-05-14 08:32] VITALS: BP 102/66
[2018-05-14] MEDS: SERTRALINE HCL 50 MG TABLET PO SCH (08:39)
[2018-05-14] MEDS: LACTULOSE 20 GM/30 ML SOLUTION UDCUP PO PRN (08:39)
[2018-05-14] MEDS: VALPROIC ACID 250 MG CAPSULE PO SCH ×2 (08:39→17:31)
[2018-05-14] MEDS: DOCUSATE SODIUM 100 MG CAPSULE PO SCH ×2 (08:39→17:30)
[2018-05-14] MEDS: BENZTROPINE MESYLATE 2 MG TABLET PO SCH ×2 (08:39→17:30)
[2018-05-14] MEDS: MEGESTROL ACETATE 400 MG/10 ML SUSPENSION UDCUP PO SCH ×2 (08:39→17:31)
[2018-05-14] MEDS: MULTIVITAMINS WITH MINERALS, THERAPEUTIC TABLET PO SCH (08:39)
[2018-05-14] MEDS: RisperiDONE CONC 3 MG/3 ML SOLUTION ORAL.SYG PO SCH ×2 (08:40→17:31)
[2018-05-14] MEDS: LOPERAMIDE HCL 2 MG CAPSULE PO PRN (13:12)
[2018-05-14 19:39] VITALS: BP 104/62
[2018-05-14] MEDS: TraZODone HCL 100 MG TABLET PO SCH (20:08)
[2018-05-15] MEDS: PANTOPRAZOLE SODIUM 40 MG DR TABLET PO SCH (06:39)
[2018-05-15] MEDS: LEVOTHYROXINE SODIUM 75 MCG TABLET PO SCH (06:39)
[2018-05-15 08:00] VITALS: BP 128/68
[2018-05-15] MEDS: MEGESTROL ACETATE 400 MG/10 ML SUSPENSION UDCUP PO SCH ×2 (10:48→17:12)
[2018-05-15] MEDS: RisperiDONE CONC 3 MG/3 ML SOLUTION ORAL.SYG PO SCH ×2 (10:48→17:12)
[2018-05-15] MEDS: VALPROIC ACID 250 MG CAPSULE PO SCH ×2 (10:48→17:12)
[2018-05-15] MEDS: DOCUSATE SODIUM 100 MG CAPSULE PO SCH ×2 (10:50→17:12)
[2018-05-15] MEDS: BENZTROPINE MESYLATE 2 MG TABLET PO SCH ×2 (10:50→17:12)
[2018-05-15] MEDS: SERTRALINE HCL 50 MG TABLET PO SCH (10:50)
[2018-05-15] MEDS: MULTIVITAMINS WITH MINERALS, THERAPEUTIC TABLET PO SCH (10:50)
[2018-05-15 16:34] VITALS: BP 125/59
[2018-05-15] MEDS: TraZODone HCL 100 MG TABLET PO SCH (20:02)
[2018-05-16] MEDS: LEVOTHYROXINE SODIUM 75 MCG TABLET PO SCH (06:57)
[2018-05-16] MEDS: PANTOPRAZOLE SODIUM 40 MG DR TABLET PO SCH (06:58)
[2018-05-16] MEDS: RisperiDONE CONC 3 MG/3 ML SOLUTION ORAL.SYG PO SCH ×2 (08:18→16:32)
[2018-05-16] MEDS: MEGESTROL ACETATE 400 MG/10 ML SUSPENSION UDCUP PO SCH ×2 (08:19→16:32)
[2018-05-16] MEDS: VALPROIC ACID 250 MG CAPSULE PO SCH ×2 (08:20→16:32)
[2018-05-16] MEDS: HALOPERIDOL 5 MG TABLET PO PRN (08:22)
[2018-05-16] MEDS: BENZTROPINE MESYLATE 2 MG TABLET PO SCH ×2 (08:22→16:32)
[2018-05-16] MEDS: MULTIVITAMINS WITH MINERALS, THERAPEUTIC TABLET PO SCH (08:23)
[2018-05-16] MEDS: DOCUSATE SODIUM 100 MG CAPSULE PO SCH ×2 (08:23→16:32)
[2018-05-16] MEDS: SERTRALINE HCL 50 MG TABLET PO SCH (08:23)
[2018-05-16 09:35] VITALS: BP 113/80
[2018-05-16 17:29] VITALS: BP 125/54
[2018-05-16] MEDS: TraZODone HCL 100 MG TABLET PO SCH (20:02)
[2018-05-17] MEDS: PANTOPRAZOLE SODIUM 40 MG DR TABLET PO SCH (06:38)
[2018-05-17] MEDS: LEVOTHYROXINE SODIUM 75 MCG TABLET PO SCH (06:38)
[2018-05-17] MEDS: MEGESTROL ACETATE 400 MG/10 ML SUSPENSION UDCUP PO SCH ×2 (08:11→17:06)
[2018-05-17] MEDS: VALPROIC ACID 250 MG CAPSULE PO SCH ×2 (08:11→17:06)
[2018-05-17] MEDS: RisperiDONE CONC 3 MG/3 ML SOLUTION ORAL.SYG PO SCH ×2 (08:11→17:06)
[2018-05-17] MEDS: HALOPERIDOL 5 MG TABLET PO PRN (08:12)
[2018-05-17] MEDS: SERTRALINE HCL 50 MG TABLET PO SCH (08:12)
[2018-05-17] MEDS: MULTIVITAMINS WITH MINERALS, THERAPEUTIC TABLET PO SCH (08:12)
[2018-05-17] MEDS: BENZTROPINE MESYLATE 2 MG TABLET PO SCH ×2 (08:12→17:06)
[2018-05-17] MEDS: DOCUSATE SODIUM 100 MG CAPSULE PO SCH ×2 (08:12→17:06)
[2018-05-17 09:26] VITALS: BP 163/64
[2018-05-17] MEDS: TraZODone HCL 100 MG TABLET PO SCH (20:03)
[2018-05-18] MEDS: LEVOTHYROXINE SODIUM 75 MCG TABLET PO SCH (06:41)
[2018-05-18] MEDS: PANTOPRAZOLE SODIUM 40 MG DR TABLET PO SCH (06:41)
[2018-05-18 08:39] VITALS: BP 139/69
[2018-05-18 08:45] VITALS: BP 139/69
[2018-05-18] MEDS: DOCUSATE SODIUM 100 MG CAPSULE PO SCH ×2 (08:51→17:06)
[2018-05-18] MEDS: MULTIVITAMINS WITH MINERALS, THERAPEUTIC TABLET PO SCH (08:51)
[2018-05-18] MEDS: SERTRALINE HCL 50 MG TABLET PO SCH (08:51)
[2018-05-18] MEDS: BENZTROPINE MESYLATE 2 MG TABLET PO SCH ×2 (08:51→17:06)
[2018-05-18] MEDS: VALPROIC ACID 250 MG CAPSULE PO SCH ×2 (08:52→17:07)
[2018-05-18] MEDS: LACTULOSE 20 GM/30 ML SOLUTION UDCUP PO PRN (08:52)
[2018-05-18] MEDS: MEGESTROL ACETATE 400 MG/10 ML SUSPENSION UDCUP PO SCH ×2 (08:52→17:07)
[2018-05-18] MEDS: RisperiDONE CONC 3 MG/3 ML SOLUTION ORAL.SYG PO SCH ×2 (08:53→17:07)
[2018-05-18] MEDS: TraZODone HCL 100 MG TABLET PO SCH (20:00)
[2018-05-18 21:29] VITALS: BP 96/60
[2018-05-19] MEDS: LEVOTHYROXINE SODIUM 75 MCG TABLET PO SCH (06:51)
[2018-05-19] MEDS: PANTOPRAZOLE SODIUM 40 MG DR TABLET PO SCH (06:51)
[2018-05-19] MEDS: MULTIVITAMINS WITH MINERALS, THERAPEUTIC TABLET PO SCH (08:10)
[2018-05-19] MEDS: SERTRALINE HCL 50 MG TABLET PO SCH (08:10)
[2018-05-19] MEDS: RisperiDONE CONC 3 MG/3 ML SOLUTION ORAL.SYG PO SCH ×2 (08:11→17:46)
[2018-05-19] MEDS: HALOPERIDOL 5 MG TABLET PO PRN (08:11)
[2018-05-19] MEDS: ONDANSETRON HCL 4 MG TABLET PO PRN (08:11)
[2018-05-19] MEDS: DOCUSATE SODIUM 100 MG CAPSULE PO SCH ×2 (08:11→17:45)
[2018-05-19] MEDS: BENZTROPINE MESYLATE 2 MG TABLET PO SCH ×2 (08:11→17:45)
[2018-05-19 09:07] VITALS: BP 141/68
[2018-05-19] MEDS: MAG HYDROX/AL HYDROX/SIMETH ES 30 ML SUSPENSION UDCUP PO PRN (09:40)
[2018-05-19] MEDS: VALPROIC ACID 250 MG CAPSULE PO SCH ×2 (09:40→17:45)
[2018-05-19] MEDS: MEGESTROL ACETATE 400 MG/10 ML SUSPENSION UDCUP PO SCH ×2 (09:40→17:45)
[2018-05-19 16:00] VITALS: BP 109/60
[2018-05-19] MEDS: TraZODone HCL 100 MG TABLET PO SCH (20:10)
[2018-05-20] MEDS: LEVOTHYROXINE SODIUM 75 MCG TABLET PO SCH (07:01)
[2018-05-20] MEDS: PANTOPRAZOLE SODIUM 40 MG DR TABLET PO SCH (07:01)
[2018-05-20 08:07] VITALS: BP 105/51
[2018-05-20] MEDS: DOCUSATE SODIUM 100 MG CAPSULE PO SCH ×2 (08:19→17:20)
[2018-05-20] MEDS: MULTIVITAMINS WITH MINERALS, THERAPEUTIC TABLET PO SCH (08:19)
[2018-05-20] MEDS: SERTRALINE HCL 50 MG TABLET PO SCH (08:19)
[2018-05-20] MEDS: BENZTROPINE MESYLATE 2 MG TABLET PO SCH ×2 (08:19→17:20)
[2018-05-20] MEDS: MEGESTROL ACETATE 400 MG/10 ML SUSPENSION UDCUP PO SCH ×2 (08:20→17:20)
[2018-05-20] MEDS: VALPROIC ACID 250 MG CAPSULE PO SCH ×2 (08:20→17:20)
[2018-05-20] MEDS: RisperiDONE CONC 3 MG/3 ML SOLUTION ORAL.SYG PO SCH ×2 (08:21→17:20)
[2018-05-20 16:00] VITALS: BP 101/67
[2018-05-20] MEDS: TraZODone HCL 100 MG TABLET PO SCH (20:04)
[2018-05-21] MEDS: LEVOTHYROXINE SODIUM 75 MCG TABLET PO SCH (07:05)
[2018-05-21] MEDS: PANTOPRAZOLE SODIUM 40 MG DR TABLET PO SCH (07:05)
[2018-05-21 08:27] VITALS: BP 111/84
[2018-05-21] MEDS: VALPROIC ACID 250 MG CAPSULE PO SCH ×2 (08:52→17:03)
[2018-05-21] MEDS: BENZTROPINE MESYLATE 2 MG TABLET PO SCH ×2 (08:52→17:04)
[2018-05-21] MEDS: MULTIVITAMINS WITH MINERALS, THERAPEUTIC TABLET PO SCH (08:52)
[2018-05-21] MEDS: SERTRALINE HCL 50 MG TABLET PO SCH (08:52)
[2018-05-21] MEDS: DOCUSATE SODIUM 100 MG CAPSULE PO SCH ×2 (08:52→17:03)
[2018-05-21] MEDS: MEGESTROL ACETATE 400 MG/10 ML SUSPENSION UDCUP PO SCH ×2 (08:53→17:04)
[2018-05-21] MEDS: RisperiDONE CONC 3 MG/3 ML SOLUTION ORAL.SYG PO SCH ×2 (08:53→17:04)
[2018-05-21 16:32] VITALS: BP 110/65
[2018-05-21] MEDS: TraZODone HCL 100 MG TABLET PO SCH (20:46)
[2018-05-22] MEDS: LEVOTHYROXINE SODIUM 75 MCG TABLET PO SCH (06:54)
[2018-05-22] MEDS: PANTOPRAZOLE SODIUM 40 MG DR TABLET PO SCH (06:54)
[2018-05-22 08:00] VITALS: BP 114/70
[2018-05-22] MEDS: MULTIVITAMINS WITH MINERALS, THERAPEUTIC TABLET PO SCH (09:21)
[2018-05-22] MEDS: DOCUSATE SODIUM 100 MG CAPSULE PO SCH ×2 (09:21→17:51)
[2018-05-22] MEDS: SERTRALINE HCL 50 MG TABLET PO SCH (09:21)
[2018-05-22] MEDS: BENZTROPINE MESYLATE 2 MG TABLET PO SCH ×2 (09:21→17:51)
[2018-05-22] MEDS: MEGESTROL ACETATE 400 MG/10 ML SUSPENSION UDCUP PO SCH ×2 (09:22→17:52)
[2018-05-22] MEDS: VALPROIC ACID 250 MG CAPSULE PO SCH ×2 (09:22→17:52)
[2018-05-22] MEDS: RisperiDONE CONC 3 MG/3 ML SOLUTION ORAL.SYG PO SCH ×2 (09:22→17:52)
[2018-05-22] MEDS: TraZODone HCL 100 MG TABLET PO SCH (20:07)
[2018-05-23] MEDS: PANTOPRAZOLE SODIUM 40 MG DR TABLET PO SCH (06:41)
[2018-05-23] MEDS: LEVOTHYROXINE SODIUM 75 MCG TABLET PO SCH (06:41)
[2018-05-23 09:32] VITALS: BP 120/76
[2018-05-23] MEDS: DOCUSATE SODIUM 100 MG CAPSULE PO SCH ×2 (10:18→16:49)
[2018-05-23] MEDS: SERTRALINE HCL 50 MG TABLET PO SCH (10:18)
[2018-05-23] MEDS: BENZTROPINE MESYLATE 2 MG TABLET PO SCH ×2 (10:18→16:49)
[2018-05-23] MEDS: MULTIVITAMINS WITH MINERALS, THERAPEUTIC TABLET PO SCH (10:18)
[2018-05-23] MEDS: VALPROIC ACID 250 MG CAPSULE PO SCH ×2 (10:19→16:50)
[2018-05-23] MEDS: MEGESTROL ACETATE 400 MG/10 ML SUSPENSION UDCUP PO SCH ×2 (10:19→16:50)
[2018-05-23] MEDS: RisperiDONE CONC 3 MG/3 ML SOLUTION ORAL.SYG PO SCH ×2 (10:20→16:50)
[2018-05-23 17:38] VITALS: BP 118/86
[2018-05-23] MEDS: TraZODone HCL 100 MG TABLET PO SCH (20:08)
[2018-05-24] MEDS: LEVOTHYROXINE SODIUM 75 MCG TABLET PO SCH (06:56)
[2018-05-24] MEDS: PANTOPRAZOLE SODIUM 40 MG DR TABLET PO SCH (06:56)
[2018-05-24 08:15] VITALS: BP 88/59
[2018-05-24] MEDS: MEGESTROL ACETATE 400 MG/10 ML SUSPENSION UDCUP PO SCH ×2 (09:47→16:56)
[2018-05-24] MEDS: VALPROIC ACID 250 MG CAPSULE PO SCH ×2 (09:47→16:56)
[2018-05-24] MEDS: BENZTROPINE MESYLATE 2 MG TABLET PO SCH ×2 (09:48→16:56)
[2018-05-24] MEDS: SERTRALINE HCL 50 MG TABLET PO SCH (09:48)
[2018-05-24] MEDS: MULTIVITAMINS WITH MINERALS, THERAPEUTIC TABLET PO SCH (09:48)
[2018-05-24] MEDS: RisperiDONE CONC 3 MG/3 ML SOLUTION ORAL.SYG PO SCH ×2 (09:48→16:56)
[2018-05-24] MEDS: DOCUSATE SODIUM 100 MG CAPSULE PO SCH ×2 (09:48→16:56)
[2018-05-24 16:07] VITALS: BP 119/76
[2018-05-24] MEDS: TraZODone HCL 100 MG TABLET PO SCH (20:34)
[2018-05-25] MEDS: PANTOPRAZOLE SODIUM 40 MG DR TABLET PO SCH (06:52)
[2018-05-25] MEDS: LEVOTHYROXINE SODIUM 75 MCG TABLET PO SCH (06:52)
[2018-05-25 08:40] VITALS: BP 120/71
[2018-05-25] MEDS: MEGESTROL ACETATE 400 MG/10 ML SUSPENSION UDCUP PO SCH ×2 (08:45→16:29)
[2018-05-25] MEDS: VALPROIC ACID 250 MG CAPSULE PO SCH ×2 (08:46→16:29)
[2018-05-25] MEDS: RisperiDONE CONC 3 MG/3 ML SOLUTION ORAL.SYG PO SCH ×2 (08:46→16:29)
[2018-05-25] MEDS: BENZTROPINE MESYLATE 2 MG TABLET PO SCH ×2 (08:48→16:29)
[2018-05-25] MEDS: DOCUSATE SODIUM 100 MG CAPSULE PO SCH ×2 (08:48→16:29)
[2018-05-25] MEDS: MULTIVITAMINS WITH MINERALS, THERAPEUTIC TABLET PO SCH (08:48)
[2018-05-25] MEDS: SERTRALINE HCL 50 MG TABLET PO SCH (08:48)
[2018-05-25] MEDS: HALOPERIDOL 5 MG TABLET PO PRN (08:48)
[2018-05-25 16:40] VITALS: BP 103/57
[2018-05-25] MEDS: TraZODone HCL 100 MG TABLET PO SCH (20:44)
[2018-05-26] MEDS: PANTOPRAZOLE SODIUM 40 MG DR TABLET PO SCH (06:40)
[2018-05-26] MEDS: LEVOTHYROXINE SODIUM 75 MCG TABLET PO SCH (06:40)
[2018-05-26] MEDS: VALPROIC ACID 250 MG CAPSULE PO SCH ×2 (07:39→16:26)
[2018-05-26] MEDS: DOCUSATE SODIUM 100 MG CAPSULE PO SCH ×2 (07:40→16:26)
[2018-05-26] MEDS: RisperiDONE CONC 3 MG/3 ML SOLUTION ORAL.SYG PO SCH ×2 (07:40→16:26)
[2018-05-26] MEDS: MULTIVITAMINS WITH MINERALS, THERAPEUTIC TABLET PO SCH (07:40)
[2018-05-26] MEDS: BENZTROPINE MESYLATE 2 MG TABLET PO SCH ×2 (07:40→16:25)
[2018-05-26] MEDS: MEGESTROL ACETATE 400 MG/10 ML SUSPENSION UDCUP PO SCH ×2 (07:40→16:26)
[2018-05-26] MEDS: SERTRALINE HCL 50 MG TABLET PO SCH (07:40)
[2018-05-26] MEDS: HALOPERIDOL 5 MG TABLET PO PRN (07:40)
[2018-05-26 08:00] VITALS: BP 105/68
[2018-05-26 16:00] VITALS: BP 112/67
[2018-05-26] MEDS: TraZODone HCL 100 MG TABLET PO SCH (20:25)
[2018-05-27] MEDS: PANTOPRAZOLE SODIUM 40 MG DR TABLET PO SCH (06:39)
[2018-05-27] MEDS: LEVOTHYROXINE SODIUM 75 MCG TABLET PO SCH (06:39)
[2018-05-27] MEDS: VALPROIC ACID 250 MG CAPSULE PO SCH ×2 (09:39→16:31)
[2018-05-27] MEDS: HALOPERIDOL 5 MG TABLET PO PRN (09:41)
[2018-05-27] MEDS: MEGESTROL ACETATE 400 MG/10 ML SUSPENSION UDCUP PO SCH ×2 (09:41→16:31)
[2018-05-27] MEDS: DOCUSATE SODIUM 100 MG CAPSULE PO SCH ×2 (09:41→16:31)
[2018-05-27] MEDS: BENZTROPINE MESYLATE 2 MG TABLET PO SCH ×2 (09:41→16:31)
[2018-05-27] MEDS: MULTIVITAMINS WITH MINERALS, THERAPEUTIC TABLET PO SCH (09:41)
[2018-05-27] MEDS: SERTRALINE HCL 50 MG TABLET PO SCH (09:41)
[2018-05-27] MEDS: RisperiDONE CONC 3 MG/3 ML SOLUTION ORAL.SYG PO SCH ×2 (09:42→16:31)
[2018-05-27 10:00] VITALS: BP 118/74
[2018-05-27] MEDS: TraZODone HCL 100 MG TABLET PO SCH (21:02)
[2018-05-28] MEDS: PANTOPRAZOLE SODIUM 40 MG DR TABLET PO SCH (06:37)
[2018-05-28] MEDS: LEVOTHYROXINE SODIUM 75 MCG TABLET PO SCH (06:37)
[2018-05-28 08:00] VITALS: BP 110/75
[2018-05-28] MEDS: BENZTROPINE MESYLATE 2 MG TABLET PO SCH ×2 (09:03→16:45)
[2018-05-28] MEDS: RisperiDONE CONC 3 MG/3 ML SOLUTION ORAL.SYG PO SCH ×2 (09:03→16:45)
[2018-05-28] MEDS: DOCUSATE SODIUM 100 MG CAPSULE PO SCH ×2 (09:03→16:45)
[2018-05-28] MEDS: MULTIVITAMINS WITH MINERALS, THERAPEUTIC TABLET PO SCH (09:03)
[2018-05-28] MEDS: SERTRALINE HCL 50 MG TABLET PO SCH (09:03)
[2018-05-28] MEDS: VALPROIC ACID 250 MG CAPSULE PO SCH ×2 (09:04→16:45)
[2018-05-28] MEDS: MEGESTROL ACETATE 400 MG/10 ML SUSPENSION UDCUP PO SCH ×2 (09:05→16:45)
[2018-05-28 17:05] VITALS: BP 114/78
[2018-05-28] MEDS: TraZODone HCL 100 MG TABLET PO SCH (20:04)
[2018-05-29] MEDS: LEVOTHYROXINE SODIUM 75 MCG TABLET PO SCH (06:49)
[2018-05-29] MEDS: PANTOPRAZOLE SODIUM 40 MG DR TABLET PO SCH (06:49)
[2018-05-29 08:00] VITALS: BP 120/72
[2018-05-29] MEDS: BENZTROPINE MESYLATE 2 MG TABLET PO SCH ×2 (09:01→16:42)
[2018-05-29] MEDS: SERTRALINE HCL 50 MG TABLET PO SCH (09:01)
[2018-05-29] MEDS: MULTIVITAMINS WITH MINERALS, THERAPEUTIC TABLET PO SCH (09:01)
[2018-05-29] MEDS: MEGESTROL ACETATE 400 MG/10 ML SUSPENSION UDCUP PO SCH ×2 (09:02→16:42)
[2018-05-29] MEDS: VALPROIC ACID 250 MG CAPSULE PO SCH ×2 (09:02→16:41)
[2018-05-29] MEDS: RisperiDONE CONC 3 MG/3 ML SOLUTION ORAL.SYG PO SCH ×2 (09:02→16:42)
[2018-05-29] MEDS: HALOPERIDOL 5 MG TABLET PO PRN (09:03)
[2018-05-29] MEDS: DOCUSATE SODIUM 100 MG CAPSULE PO SCH ×2 (09:03→16:41)
[2018-05-29 18:28] VITALS: BP 104/74
[2018-05-29] MEDS: TraZODone HCL 100 MG TABLET PO SCH (20:01)
[2018-05-30] MEDS: PANTOPRAZOLE SODIUM 40 MG DR TABLET PO SCH (07:06)
[2018-05-30] MEDS: LEVOTHYROXINE SODIUM 75 MCG TABLET PO SCH (07:06)
[2018-05-30 08:30] VITALS: BP 125/80
[2018-05-30] MEDS: MEGESTROL ACETATE 400 MG/10 ML SUSPENSION UDCUP PO SCH ×2 (09:35→16:44)
[2018-05-30] MEDS: RisperiDONE CONC 3 MG/3 ML SOLUTION ORAL.SYG PO SCH ×2 (09:35→16:44)
[2018-05-30] MEDS: VALPROIC ACID 250 MG CAPSULE PO SCH ×2 (09:35→16:44)
[2018-05-30] MEDS: BENZTROPINE MESYLATE 2 MG TABLET PO SCH ×2 (09:37→16:45)
[2018-05-30] MEDS: SERTRALINE HCL 50 MG TABLET PO SCH (09:37)
[2018-05-30] MEDS: HALOPERIDOL 5 MG TABLET PO PRN (09:37)
[2018-05-30] MEDS: MULTIVITAMINS WITH MINERALS, THERAPEUTIC TABLET PO SCH (09:37)
[2018-05-30] MEDS: DOCUSATE SODIUM 100 MG CAPSULE PO SCH ×2 (09:39→16:45)
[2018-05-30 16:32] VITALS: BP 121/64
[2018-05-30] MEDS: TraZODone HCL 100 MG TABLET PO SCH (20:07)
[2018-05-31] MEDS: LEVOTHYROXINE SODIUM 75 MCG TABLET PO SCH (06:40)
[2018-05-31] MEDS: PANTOPRAZOLE SODIUM 40 MG DR TABLET PO SCH (06:40)
[2018-05-31 08:00] VITALS: BP 112/57
[2018-05-31] MEDS: RisperiDONE CONC 3 MG/3 ML SOLUTION ORAL.SYG PO SCH ×2 (08:50→16:25)
[2018-05-31] MEDS: VALPROIC ACID 250 MG CAPSULE PO SCH ×2 (08:59→16:25)
[2018-05-31] MEDS: SERTRALINE HCL 50 MG TABLET PO SCH (08:59)
[2018-05-31] MEDS: BENZTROPINE MESYLATE 2 MG TABLET PO SCH ×2 (08:59→16:25)
[2018-05-31] MEDS: MULTIVITAMINS WITH MINERALS, THERAPEUTIC TABLET PO SCH (08:59)
[2018-05-31] MEDS: MEGESTROL ACETATE 400 MG/10 ML SUSPENSION UDCUP PO SCH ×2 (09:00→16:26)
[2018-05-31] MEDS: DOCUSATE SODIUM 100 MG CAPSULE PO SCH ×2 (09:00→16:26)
[2018-05-31 16:49] VITALS: BP 139/62
[2018-05-31] MEDS: TraZODone HCL 100 MG TABLET PO SCH (21:25)
[2018-06-01] MEDS: LEVOTHYROXINE SODIUM 75 MCG TABLET PO SCH (07:03)
[2018-06-01] MEDS: PANTOPRAZOLE SODIUM 40 MG DR TABLET PO SCH (07:03)
[2018-06-01 08:00] VITALS: BP 127/71
[2018-06-01] MEDS: SERTRALINE HCL 50 MG TABLET PO SCH (08:49)
[2018-06-01] MEDS: MULTIVITAMINS WITH MINERALS, THERAPEUTIC TABLET PO SCH (08:49)
[2018-06-01] MEDS: BENZTROPINE MESYLATE 2 MG TABLET PO SCH ×2 (08:49→17:41)
[2018-06-01] MEDS: HALOPERIDOL 5 MG TABLET PO PRN (08:50)
[2018-06-01] MEDS: RisperiDONE CONC 3 MG/3 ML SOLUTION ORAL.SYG PO SCH ×2 (08:50→17:42)
[2018-06-01] MEDS: ONDANSETRON HCL 4 MG TABLET PO PRN (08:50)
[2018-06-01] MEDS: VALPROIC ACID 250 MG CAPSULE PO SCH ×2 (08:51→17:42)
[2018-06-01] MEDS: MEGESTROL ACETATE 400 MG/10 ML SUSPENSION UDCUP PO SCH ×2 (08:51→17:42)
[2018-06-01] MEDS: DOCUSATE SODIUM 100 MG CAPSULE PO SCH ×2 (08:51→17:41)
[2018-06-01 16:01] VITALS: BP 109/68
[2018-06-01] MEDS: TraZODone HCL 100 MG TABLET PO SCH (20:29)
[2018-06-02] MEDS: LEVOTHYROXINE SODIUM 75 MCG TABLET PO SCH (07:00)
[2018-06-02] MEDS: PANTOPRAZOLE SODIUM 40 MG DR TABLET PO SCH (07:00)
[2018-06-02 08:30] VITALS: BP 129/61
[2018-06-02] MEDS: BENZTROPINE MESYLATE 2 MG TABLET PO SCH ×2 (09:29→16:21)
[2018-06-02] MEDS: SERTRALINE HCL 50 MG TABLET PO SCH (09:29)
[2018-06-02] MEDS: DOCUSATE SODIUM 100 MG CAPSULE PO SCH ×2 (09:29→16:21)
[2018-06-02] MEDS: MULTIVITAMINS WITH MINERALS, THERAPEUTIC TABLET PO SCH (09:29)
[2018-06-02] MEDS: MEGESTROL ACETATE 400 MG/10 ML SUSPENSION UDCUP PO SCH ×2 (09:29→16:23)
[2018-06-02] MEDS: VALPROIC ACID 250 MG CAPSULE PO SCH ×2 (09:29→16:22)
[2018-06-02] MEDS: RisperiDONE CONC 3 MG/3 ML SOLUTION ORAL.SYG PO SCH ×2 (09:29→16:22)
[2018-06-02 16:33] VITALS: BP 116/62
[2018-06-02] MEDS: TraZODone HCL 100 MG TABLET PO SCH (20:12)
[2018-06-03] MEDS: PANTOPRAZOLE SODIUM 40 MG DR TABLET PO SCH (07:00)
[2018-06-03] MEDS: LEVOTHYROXINE SODIUM 75 MCG TABLET PO SCH (07:00)
[2018-06-03] MEDS: MEGESTROL ACETATE 400 MG/10 ML SUSPENSION UDCUP PO SCH ×2 (08:21→17:23)
[2018-06-03] MEDS: SERTRALINE HCL 50 MG TABLET PO SCH (08:21)
[2018-06-03] MEDS: MULTIVITAMINS WITH MINERALS, THERAPEUTIC TABLET PO SCH (08:21)
[2018-06-03] MEDS: VALPROIC ACID 250 MG CAPSULE PO SCH ×2 (08:21→17:23)
[2018-06-03] MEDS: RisperiDONE CONC 3 MG/3 ML SOLUTION ORAL.SYG PO SCH ×2 (08:21→17:24)
[2018-06-03] MEDS: BENZTROPINE MESYLATE 2 MG TABLET PO SCH ×2 (08:21→17:24)
[2018-06-03] MEDS: DOCUSATE SODIUM 100 MG CAPSULE PO SCH ×2 (09:00→17:23)
[2018-06-03 10:27] VITALS: BP 103/78
[2018-06-03] MEDS: TraZODone HCL 100 MG TABLET PO SCH (20:08)
[2018-06-04] MEDS: PANTOPRAZOLE SODIUM 40 MG DR TABLET PO SCH (06:53)
[2018-06-04] MEDS: LEVOTHYROXINE SODIUM 75 MCG TABLET PO SCH (06:53)
[2018-06-04 08:00] VITALS: BP 140/85
[2018-06-04] MEDS: SERTRALINE HCL 50 MG TABLET PO SCH (08:15)
[2018-06-04] MEDS: VALPROIC ACID 250 MG CAPSULE PO SCH ×2 (08:15→16:36)
[2018-06-04] MEDS: RisperiDONE CONC 3 MG/3 ML SOLUTION ORAL.SYG PO SCH ×2 (08:15→16:36)
[2018-06-04] MEDS: MULTIVITAMINS WITH MINERALS, THERAPEUTIC TABLET PO SCH (08:15)
[2018-06-04] MEDS: MEGESTROL ACETATE 400 MG/10 ML SUSPENSION UDCUP PO SCH ×2 (08:15→16:37)
[2018-06-04] MEDS: BENZTROPINE MESYLATE 2 MG TABLET PO SCH ×2 (08:15→16:36)
[2018-06-04] MEDS: DOCUSATE SODIUM 100 MG CAPSULE PO SCH ×2 (08:16→16:36)
[2018-06-04] MEDS: HALOPERIDOL 5 MG TABLET PO PRN (08:43)
[2018-06-04 17:02] VITALS: BP 99/63
[2018-06-04] MEDS: TraZODone HCL 100 MG TABLET PO SCH (20:28)
[2018-06-05] MEDS: LEVOTHYROXINE SODIUM 75 MCG TABLET PO SCH (06:43)
[2018-06-05] MEDS: PANTOPRAZOLE SODIUM 40 MG DR TABLET PO SCH (06:43)
[2018-06-05 08:00] VITALS: BP 119/73
[2018-06-05] MEDS: DOCUSATE SODIUM 100 MG CAPSULE PO SCH ×2 (09:00→17:11)
[2018-06-05] MEDS: VALPROIC ACID 250 MG CAPSULE PO SCH ×2 (09:00→17:12)
[2018-06-05] MEDS: HALOPERIDOL 5 MG TABLET PO PRN ×2 (09:00→14:06)
[2018-06-05] MEDS: MULTIVITAMINS WITH MINERALS, THERAPEUTIC TABLET PO SCH (09:00)
[2018-06-05] MEDS: SERTRALINE HCL 50 MG TABLET PO SCH (09:00)
[2018-06-05] MEDS: RisperiDONE CONC 3 MG/3 ML SOLUTION ORAL.SYG PO SCH ×2 (09:00→17:13)
[2018-06-05] MEDS: BENZTROPINE MESYLATE 2 MG TABLET PO SCH ×2 (09:00→17:11)
[2018-06-05] MEDS: MEGESTROL ACETATE 400 MG/10 ML SUSPENSION UDCUP PO SCH ×2 (09:01→17:13)
[2018-06-05] MEDS ORDERED: LORazepam 1 MG TABLET PO ONE (11:30)
[2018-06-05 16:58] VITALS: BP 105/60
[2018-06-05] MEDS: TraZODone HCL 100 MG TABLET PO SCH (20:24)
[2018-06-06] MEDS: PANTOPRAZOLE SODIUM 40 MG DR TABLET PO SCH (07:04)
[2018-06-06] MEDS: LEVOTHYROXINE SODIUM 75 MCG TABLET PO SCH (07:04)
[2018-06-06 08:12] VITALS: BP 102/60
[2018-06-06] MEDS: MEGESTROL ACETATE 400 MG/10 ML SUSPENSION UDCUP PO SCH ×2 (09:19→18:12)
[2018-06-06] MEDS: RisperiDONE CONC 3 MG/3 ML SOLUTION ORAL.SYG PO SCH ×2 (09:19→18:15)
[2018-06-06] MEDS: SERTRALINE HCL 50 MG TABLET PO SCH (09:19)
[2018-06-06] MEDS: VALPROIC ACID 250 MG CAPSULE PO SCH ×2 (09:19→18:11)
[2018-06-06] MEDS: MULTIVITAMINS WITH MINERALS, THERAPEUTIC TABLET PO SCH (09:19)
[2018-06-06] MEDS: DOCUSATE SODIUM 100 MG CAPSULE PO SCH ×2 (09:20→18:12)
[2018-06-06] MEDS: BENZTROPINE MESYLATE 2 MG TABLET PO SCH ×2 (09:21→18:11)
[2018-06-06 17:32] VITALS: BP 124/80
[2018-06-06] MEDS: TraZODone HCL 100 MG TABLET PO SCH (20:46)
[2018-06-07] MEDS: PANTOPRAZOLE SODIUM 40 MG DR TABLET PO SCH (06:58)
[2018-06-07] MEDS: LEVOTHYROXINE SODIUM 75 MCG TABLET PO SCH (06:58)
[2018-06-07 08:22] VITALS: BP 138/73
[2018-06-07] MEDS: SERTRALINE HCL 50 MG TABLET PO SCH (08:49)
[2018-06-07] MEDS: MULTIVITAMINS WITH MINERALS, THERAPEUTIC TABLET PO SCH (08:49)
[2018-06-07] MEDS: VALPROIC ACID 250 MG CAPSULE PO SCH ×2 (08:49→16:33)
[2018-06-07] MEDS: DOCUSATE SODIUM 100 MG CAPSULE PO SCH ×2 (08:49→16:33)
[2018-06-07] MEDS: BENZTROPINE MESYLATE 2 MG TABLET PO SCH ×2 (08:54→16:33)
[2018-06-07] MEDS: MEGESTROL ACETATE 400 MG/10 ML SUSPENSION UDCUP PO SCH ×2 (09:56→16:34)
[2018-06-07] MEDS: RisperiDONE CONC 3 MG/3 ML SOLUTION ORAL.SYG PO SCH ×2 (09:56→16:33)
[2018-06-07 16:13] VITALS: BP 102/56
[2018-06-07 20:30] VITALS: BP 103/60
[2018-06-07] MEDS: TraZODone HCL 100 MG TABLET PO SCH (20:34)
[2018-06-08] MEDS: PANTOPRAZOLE SODIUM 40 MG DR TABLET PO SCH (06:00)
[2018-06-08] MEDS: LEVOTHYROXINE SODIUM 75 MCG TABLET PO SCH (06:00)
[2018-06-08 06:07] VITALS: BP 149/79
[2018-06-08 08:13] VITALS: BP 100/53
[2018-06-08] MEDS: MEGESTROL ACETATE 400 MG/10 ML SUSPENSION UDCUP PO SCH ×2 (09:32→17:33)
[2018-06-08] MEDS: BENZTROPINE MESYLATE 2 MG TABLET PO SCH ×2 (09:32→17:34)
[2018-06-08] MEDS: SERTRALINE HCL 50 MG TABLET PO SCH (09:33)
[2018-06-08] MEDS: MULTIVITAMINS WITH MINERALS, THERAPEUTIC TABLET PO SCH (09:33)
[2018-06-08] MEDS: VALPROIC ACID 250 MG CAPSULE PO SCH ×2 (09:33→17:33)
[2018-06-08] MEDS: DOCUSATE SODIUM 100 MG CAPSULE PO SCH ×2 (09:33→17:34)
[2018-06-08] MEDS: RisperiDONE CONC 3 MG/3 ML SOLUTION ORAL.SYG PO SCH ×2 (13:10→17:33)
[2018-06-08 16:08] VITALS: BP 120/72
[2018-06-08] MEDS: HALOPERIDOL 5 MG TABLET PO PRN (21:24)
[2018-06-08] MEDS: TraZODone HCL 100 MG TABLET PO SCH (21:24)
[2018-06-09 06:29] VITALS: BP 117/70
[2018-06-09] MEDS: LEVOTHYROXINE SODIUM 75 MCG TABLET PO SCH (06:53)
[2018-06-09] MEDS: PANTOPRAZOLE SODIUM 40 MG DR TABLET PO SCH (06:53)
[2018-06-09 08:11] VITALS: BP 104/56
[2018-06-09] MEDS: VALPROIC ACID 250 MG CAPSULE PO SCH ×2 (08:50→17:04)
[2018-06-09] MEDS: MEGESTROL ACETATE 400 MG/10 ML SUSPENSION UDCUP PO SCH ×2 (08:50→17:03)
[2018-06-09] MEDS: RisperiDONE CONC 3 MG/3 ML SOLUTION ORAL.SYG PO SCH ×2 (08:51→17:04)
[2018-06-09] MEDS: DOCUSATE SODIUM 100 MG CAPSULE PO SCH ×2 (08:55→17:04)
[2018-06-09] MEDS: MULTIVITAMINS WITH MINERALS, THERAPEUTIC TABLET PO SCH (08:55)
[2018-06-09] MEDS: SERTRALINE HCL 50 MG TABLET PO SCH (08:55)
[2018-06-09] MEDS: HALOPERIDOL 5 MG TABLET PO PRN (09:00)
[2018-06-09] MEDS: BENZTROPINE MESYLATE 2 MG TABLET PO SCH ×2 (09:28→17:06)
[2018-06-09 16:07] VITALS: BP 106/59
[2018-06-09] MEDS: TraZODone HCL 100 MG TABLET PO SCH (21:33)
[2018-06-10] MEDS: LEVOTHYROXINE SODIUM 75 MCG TABLET PO SCH (06:42)
[2018-06-10] MEDS: PANTOPRAZOLE SODIUM 40 MG DR TABLET PO SCH (06:42)
[2018-06-10 06:44] VITALS: BP 112/62
[2018-06-10 08:37] VITALS: BP 106/62
[2018-06-10] MEDS: DOCUSATE SODIUM 100 MG CAPSULE PO SCH ×2 (09:02→17:12)
[2018-06-10] MEDS: MEGESTROL ACETATE 400 MG/10 ML SUSPENSION UDCUP PO SCH ×2 (09:03→17:11)
[2018-06-10] MEDS: MULTIVITAMINS WITH MINERALS, THERAPEUTIC TABLET PO SCH (09:03)
[2018-06-10] MEDS: VALPROIC ACID 250 MG CAPSULE PO SCH ×2 (09:03→17:11)
[2018-06-10] MEDS: SERTRALINE HCL 50 MG TABLET PO SCH (09:03)
[2018-06-10] MEDS: BENZTROPINE MESYLATE 2 MG TABLET PO SCH ×2 (09:03→17:12)
[2018-06-10] MEDS: RisperiDONE CONC 3 MG/3 ML SOLUTION ORAL.SYG PO SCH ×2 (09:04→17:12)
[2018-06-10] MEDS ORDERED: TUBERCULIN, PURIFIED PROTEIN DERIVATIVE 5 TU/0.1 ML SYRINGE ID ONE (11:15)
[2018-06-10 16:00] VITALS: BP 110/60
[2018-06-10] MEDS: ZINC OXIDE 40%/COD LIVER OIL 57 GM PASTE TP SCH (17:12)
[2018-06-10] MEDS: TraZODone HCL 100 MG TABLET PO SCH (20:38)
[2018-06-11] MEDS: PANTOPRAZOLE SODIUM 40 MG DR TABLET PO SCH (06:42)
[2018-06-11] MEDS: LEVOTHYROXINE SODIUM 75 MCG TABLET PO SCH (06:42)
[2018-06-11 06:59] VITALS: BP 105/60
[2018-06-11 08:14] VITALS: BP 100/53
[2018-06-11] MEDS: MULTIVITAMINS WITH MINERALS, THERAPEUTIC TABLET PO SCH (08:30)
[2018-06-11] MEDS: BENZTROPINE MESYLATE 2 MG TABLET PO SCH ×2 (08:30→16:09)
[2018-06-11] MEDS: DOCUSATE SODIUM 100 MG CAPSULE PO SCH ×2 (08:30→16:09)
[2018-06-11] MEDS: MEGESTROL ACETATE 400 MG/10 ML SUSPENSION UDCUP PO SCH ×2 (08:30→16:10)
[2018-06-11] MEDS: RisperiDONE CONC 3 MG/3 ML SOLUTION ORAL.SYG PO SCH ×2 (08:30→16:10)
[2018-06-11] MEDS: SERTRALINE HCL 50 MG TABLET PO SCH (08:30)
[2018-06-11] MEDS: ZINC OXIDE 40%/COD LIVER OIL 57 GM PASTE TP SCH ×2 (08:30→16:10)
[2018-06-11] MEDS: VALPROIC ACID 250 MG CAPSULE PO SCH ×2 (08:30→16:10)
[2018-06-11] MEDS: HALOPERIDOL 5 MG TABLET PO PRN (18:16)
[2018-06-11] MEDS: TraZODone HCL 100 MG TABLET PO SCH (20:26)
[2018-06-12 00:29] VITALS: BP 102/61
[2018-06-12] MEDS: PANTOPRAZOLE SODIUM 40 MG DR TABLET PO SCH (06:32)
[2018-06-12] MEDS: LEVOTHYROXINE SODIUM 75 MCG TABLET PO SCH (06:32)
[2018-06-12 08:30] VITALS: BP 100/68
[2018-06-12] MEDS: VALPROIC ACID 250 MG CAPSULE PO SCH ×2 (08:56→16:28)
[2018-06-12] MEDS: SERTRALINE HCL 50 MG TABLET PO SCH (08:56)
[2018-06-12] MEDS: MULTIVITAMINS WITH MINERALS, THERAPEUTIC TABLET PO SCH (08:57)
[2018-06-12] MEDS: BENZTROPINE MESYLATE 2 MG TABLET PO SCH ×2 (08:57→16:28)
[2018-06-12] MEDS: RisperiDONE CONC 3 MG/3 ML SOLUTION ORAL.SYG PO SCH ×2 (08:57→16:28)
[2018-06-12] MEDS: DOCUSATE SODIUM 100 MG CAPSULE PO SCH ×2 (08:57→16:28)
[2018-06-12] MEDS: MEGESTROL ACETATE 400 MG/10 ML SUSPENSION UDCUP PO SCH ×2 (08:57→16:28)
[2018-06-12] MEDS: ZINC OXIDE 40%/COD LIVER OIL 57 GM PASTE TP SCH ×2 (08:59→16:29)
[2018-06-12 17:13] VITALS: BP 135/89
[2018-06-12] MEDS: TraZODone HCL 100 MG TABLET PO SCH (20:51)
[2018-06-13 00:10] VITALS: BP 108/65
[2018-06-13] MEDS: PANTOPRAZOLE SODIUM 40 MG DR TABLET PO SCH (07:18)
[2018-06-13] MEDS: LEVOTHYROXINE SODIUM 75 MCG TABLET PO SCH (07:18)
[2018-06-13 08:30] VITALS: BP 115/67
[2018-06-13] MEDS: VALPROIC ACID 250 MG CAPSULE PO SCH ×2 (09:08→17:03)
[2018-06-13] MEDS: DOCUSATE SODIUM 100 MG CAPSULE PO SCH ×2 (09:08→17:03)
[2018-06-13] MEDS: BENZTROPINE MESYLATE 2 MG TABLET PO SCH ×2 (09:08→17:03)
[2018-06-13] MEDS: SERTRALINE HCL 50 MG TABLET PO SCH (09:08)
[2018-06-13] MEDS: MEGESTROL ACETATE 400 MG/10 ML SUSPENSION UDCUP PO SCH ×2 (09:09→17:03)
[2018-06-13] MEDS: MULTIVITAMINS WITH MINERALS, THERAPEUTIC TABLET PO SCH (09:09)
[2018-06-13] MEDS: RisperiDONE CONC 3 MG/3 ML SOLUTION ORAL.SYG PO SCH ×2 (09:10→17:03)
[2018-06-13] MEDS: ZINC OXIDE 40%/COD LIVER OIL 57 GM PASTE TP SCH ×2 (09:11→17:04)
[2018-06-13 16:45] VITALS: BP 109/58
[2018-06-13] MEDS: MAG HYDROX/AL HYDROX/SIMETH ES 30 ML SUSPENSION UDCUP PO PRN (17:02)
[2018-06-13] MEDS: HALOPERIDOL 5 MG TABLET PO PRN ×2 (17:23→21:41)
[2018-06-13] MEDS: TraZODone HCL 100 MG TABLET PO SCH (21:07)
[2018-06-14 06:11] VITALS: BP 116/61
[2018-06-14] MEDS: PANTOPRAZOLE SODIUM 40 MG DR TABLET PO SCH (07:00)
[2018-06-14] MEDS: LEVOTHYROXINE SODIUM 75 MCG TABLET PO SCH (07:00)
[2018-06-14 08:16] VITALS: BP 113/61
[2018-06-14] MEDS: RisperiDONE CONC 3 MG/3 ML SOLUTION ORAL.SYG PO SCH ×2 (08:47→17:21)
[2018-06-14] MEDS: MEGESTROL ACETATE 400 MG/10 ML SUSPENSION UDCUP PO SCH ×2 (08:47→17:21)
[2018-06-14] MEDS: VALPROIC ACID 250 MG CAPSULE PO SCH ×2 (08:48→17:24)
[2018-06-14] MEDS: MULTIVITAMINS WITH MINERALS, THERAPEUTIC TABLET PO SCH (08:48)
[2018-06-14] MEDS: SERTRALINE HCL 50 MG TABLET PO SCH (08:48)
[2018-06-14] MEDS: BENZTROPINE MESYLATE 2 MG TABLET PO SCH ×2 (08:49→17:24)
[2018-06-14] MEDS: DOCUSATE SODIUM 100 MG CAPSULE PO SCH ×2 (08:49→17:21)
[2018-06-14] MEDS: ZINC OXIDE 40%/COD LIVER OIL 57 GM PASTE TP SCH ×2 (08:49→17:24)
[2018-06-14 17:41] VITALS: BP 114/69
[2018-06-14] MEDS: TraZODone HCL 100 MG TABLET PO SCH (21:13)
[2018-06-15 05:31] VITALS: BP 115/72
[2018-06-15] MEDS: LEVOTHYROXINE SODIUM 75 MCG TABLET PO SCH (06:29)
[2018-06-15] MEDS: PANTOPRAZOLE SODIUM 40 MG DR TABLET PO SCH (06:29)
[2018-06-15 08:15] VITALS: BP 134/85
[2018-06-15] MEDS: VALPROIC ACID 250 MG CAPSULE PO SCH ×2 (09:16→17:04)
[2018-06-15] MEDS: RisperiDONE CONC 3 MG/3 ML SOLUTION ORAL.SYG PO SCH ×2 (09:16→17:04)
[2018-06-15] MEDS: MULTIVITAMINS WITH MINERALS, THERAPEUTIC TABLET PO SCH (09:16)
[2018-06-15] MEDS: MEGESTROL ACETATE 400 MG/10 ML SUSPENSION UDCUP PO SCH ×2 (09:16→17:04)
[2018-06-15] MEDS: DOCUSATE SODIUM 100 MG CAPSULE PO SCH ×2 (09:17→17:03)
[2018-06-15] MEDS: SERTRALINE HCL 50 MG TABLET PO SCH (09:17)
[2018-06-15] MEDS: ZINC OXIDE 40%/COD LIVER OIL 57 GM PASTE TP SCH ×2 (09:17→17:06)
[2018-06-15] MEDS: BENZTROPINE MESYLATE 2 MG TABLET PO SCH ×2 (09:17→17:04)
[2018-06-15 16:45] VITALS: BP 128/60
[2018-06-15] MEDS: TraZODone HCL 100 MG TABLET PO SCH (20:17)
[2018-06-16 06:43] VITALS: BP 97/64
[2018-06-16] MEDS: PANTOPRAZOLE SODIUM 40 MG DR TABLET PO SCH (07:06)
[2018-06-16] MEDS: LEVOTHYROXINE SODIUM 75 MCG TABLET PO SCH (07:06)
[2018-06-16 08:20] VITALS: BP 113/77
[2018-06-16] MEDS: RisperiDONE CONC 3 MG/3 ML SOLUTION ORAL.SYG PO SCH ×2 (08:22→16:49)
[2018-06-16] MEDS: MEGESTROL ACETATE 400 MG/10 ML SUSPENSION UDCUP PO SCH ×2 (08:22→16:49)
[2018-06-16] MEDS: BENZTROPINE MESYLATE 2 MG TABLET PO SCH ×2 (08:23→16:49)
[2018-06-16] MEDS: DOCUSATE SODIUM 100 MG CAPSULE PO SCH ×2 (08:23→16:49)
[2018-06-16] MEDS: VALPROIC ACID 250 MG CAPSULE PO SCH ×2 (08:23→16:49)
[2018-06-16] MEDS: SERTRALINE HCL 50 MG TABLET PO SCH (08:23)
[2018-06-16] MEDS: ZINC OXIDE 40%/COD LIVER OIL 57 GM PASTE TP SCH ×2 (08:23→16:51)
[2018-06-16] MEDS: MULTIVITAMINS WITH MINERALS, THERAPEUTIC TABLET PO SCH (08:23)
[2018-06-16 16:35] VITALS: BP 131/71
[2018-06-16] MEDS: TraZODone HCL 100 MG TABLET PO SCH (21:27)
[2018-06-17 05:37] VITALS: BP 108/60
[2018-06-17] MEDS: LEVOTHYROXINE SODIUM 75 MCG TABLET PO SCH (06:57)
[2018-06-17] MEDS: PANTOPRAZOLE SODIUM 40 MG DR TABLET PO SCH (06:59)
[2018-06-17] MEDS: SERTRALINE HCL 50 MG TABLET PO SCH (08:10)
[2018-06-17] MEDS: DOCUSATE SODIUM 100 MG CAPSULE PO SCH ×2 (08:10→16:38)
[2018-06-17] MEDS: RisperiDONE CONC 3 MG/3 ML SOLUTION ORAL.SYG PO SCH ×2 (08:10→16:39)
[2018-06-17] MEDS: MEGESTROL ACETATE 400 MG/10 ML SUSPENSION UDCUP PO SCH ×2 (08:10→16:38)
[2018-06-17] MEDS: VALPROIC ACID 250 MG CAPSULE PO SCH ×2 (08:10→16:38)
[2018-06-17] MEDS: MULTIVITAMINS WITH MINERALS, THERAPEUTIC TABLET PO SCH (08:11)
[2018-06-17] MEDS: ZINC OXIDE 40%/COD LIVER OIL 57 GM PASTE TP SCH ×2 (08:11→17:48)
[2018-06-17] MEDS: BENZTROPINE MESYLATE 2 MG TABLET PO SCH ×2 (08:12→16:39)
[2018-06-17 08:16] VITALS: BP 102/65
[2018-06-17] MEDS: HALOPERIDOL 5 MG TABLET PO PRN (13:43)
[2018-06-17 16:07] VITALS: BP 104/76
[2018-06-17] MEDS: TraZODone HCL 100 MG TABLET PO SCH (20:28)
[2018-06-18] MEDS: PANTOPRAZOLE SODIUM 40 MG DR TABLET PO SCH (06:24)
[2018-06-18] MEDS: LEVOTHYROXINE SODIUM 75 MCG TABLET PO SCH (06:24)
[2018-06-18 06:34] VITALS: BP 116/70
[2018-06-18 08:35] VITALS: BP 109/63
[2018-06-18] MEDS: BENZTROPINE MESYLATE 2 MG TABLET PO SCH ×2 (09:09→16:18)
[2018-06-18] MEDS: VALPROIC ACID 250 MG CAPSULE PO SCH ×2 (09:09→16:18)
[2018-06-18] MEDS: MEGESTROL ACETATE 400 MG/10 ML SUSPENSION UDCUP PO SCH ×2 (09:09→16:18)
[2018-06-18] MEDS: SERTRALINE HCL 50 MG TABLET PO SCH (09:09)
[2018-06-18] MEDS: MULTIVITAMINS WITH MINERALS, THERAPEUTIC TABLET PO SCH (09:09)
[2018-06-18] MEDS: DOCUSATE SODIUM 100 MG CAPSULE PO SCH ×2 (09:09→16:18)
[2018-06-18] MEDS: ZINC OXIDE 40%/COD LIVER OIL 57 GM PASTE TP SCH ×2 (09:10→16:23)
[2018-06-18] MEDS: RisperiDONE CONC 3 MG/3 ML SOLUTION ORAL.SYG PO SCH ×2 (09:10→16:18)
[2018-06-18] MEDS: HALOPERIDOL 5 MG TABLET PO PRN (09:11)
[2018-06-18 16:26] VITALS: BP 120/65
[2018-06-18] MEDS: TraZODone HCL 100 MG TABLET PO SCH (20:14)
[2018-06-19 05:39] VITALS: BP 107/60
[2018-06-19] MEDS: PANTOPRAZOLE SODIUM 40 MG DR TABLET PO SCH (06:33)
[2018-06-19] MEDS: LEVOTHYROXINE SODIUM 75 MCG TABLET PO SCH (06:33)
[2018-06-19 08:32] VITALS: BP 114/75
[2018-06-19] MEDS: BENZTROPINE MESYLATE 2 MG TABLET PO SCH ×2 (08:46→16:56)
[2018-06-19] MEDS: MULTIVITAMINS WITH MINERALS, THERAPEUTIC TABLET PO SCH (08:46)
[2018-06-19] MEDS: SERTRALINE HCL 50 MG TABLET PO SCH (08:46)
[2018-06-19] MEDS: DOCUSATE SODIUM 100 MG CAPSULE PO SCH ×2 (08:46→16:56)
[2018-06-19] MEDS: VALPROIC ACID 250 MG CAPSULE PO SCH ×2 (08:46→16:57)
[2018-06-19] MEDS: RisperiDONE CONC 3 MG/3 ML SOLUTION ORAL.SYG PO SCH ×2 (08:47→17:18)
[2018-06-19] MEDS: ZINC OXIDE 40%/COD LIVER OIL 57 GM PASTE TP SCH ×2 (08:48→17:19)
[2018-06-19] MEDS: MEGESTROL ACETATE 400 MG/10 ML SUSPENSION UDCUP PO SCH ×2 (08:51→16:57)
[2018-06-19 16:03] VITALS: BP 103/74
[2018-06-19] MEDS: TraZODone HCL 100 MG TABLET PO SCH (20:12)
[2018-06-20 06:49] VITALS: BP 104/61
[2018-06-20] MEDS: PANTOPRAZOLE SODIUM 40 MG DR TABLET PO SCH (06:54)
[2018-06-20] MEDS: LEVOTHYROXINE SODIUM 75 MCG TABLET PO SCH (06:54)
[2018-06-20 08:19] VITALS: BP 114/55
[2018-06-20] MEDS: MEGESTROL ACETATE 400 MG/10 ML SUSPENSION UDCUP PO SCH ×2 (08:22→16:51)
[2018-06-20] MEDS: MULTIVITAMINS WITH MINERALS, THERAPEUTIC TABLET PO SCH (08:22)
[2018-06-20] MEDS: BENZTROPINE MESYLATE 2 MG TABLET PO SCH ×2 (08:22→16:51)
[2018-06-20] MEDS: DOCUSATE SODIUM 100 MG CAPSULE PO SCH ×2 (08:22→16:51)
[2018-06-20] MEDS: SERTRALINE HCL 50 MG TABLET PO SCH (08:22)
[2018-06-20] MEDS: HALOPERIDOL 5 MG TABLET PO PRN (08:22)
[2018-06-20] MEDS: RisperiDONE CONC 3 MG/3 ML SOLUTION ORAL.SYG PO SCH ×2 (08:23→16:51)
[2018-06-20] MEDS: VALPROIC ACID 250 MG CAPSULE PO SCH ×2 (08:23→16:51)
[2018-06-20] MEDS: ZINC OXIDE 40%/COD LIVER OIL 57 GM PASTE TP SCH ×2 (08:24→16:56)
[2018-06-20 16:19] VITALS: BP 100/60
[2018-06-20] MEDS: TraZODone HCL 100 MG TABLET PO SCH (20:26)
[2018-06-21 00:01] VITALS: BP 122/87
[2018-06-21] MEDS: PANTOPRAZOLE SODIUM 40 MG DR TABLET PO SCH (06:49)
[2018-06-21] MEDS: LEVOTHYROXINE SODIUM 75 MCG TABLET PO SCH (06:49)
[2018-06-21 08:09] VITALS: BP 116/68
[2018-06-21] MEDS: BENZTROPINE MESYLATE 2 MG TABLET PO SCH ×2 (08:34→17:10)
[2018-06-21] MEDS: RisperiDONE CONC 3 MG/3 ML SOLUTION ORAL.SYG PO SCH ×2 (08:34→17:09)
[2018-06-21] MEDS: MULTIVITAMINS WITH MINERALS, THERAPEUTIC TABLET PO SCH (08:34)
[2018-06-21] MEDS: DOCUSATE SODIUM 100 MG CAPSULE PO SCH ×2 (08:34→17:10)
[2018-06-21] MEDS: MEGESTROL ACETATE 400 MG/10 ML SUSPENSION UDCUP PO SCH ×2 (08:34→17:09)
[2018-06-21] MEDS: SERTRALINE HCL 50 MG TABLET PO SCH (08:34)
[2018-06-21] MEDS: ZINC OXIDE 40%/COD LIVER OIL 57 GM PASTE TP SCH ×2 (08:55→17:09)
[2018-06-21] MEDS: VALPROIC ACID 250 MG CAPSULE PO SCH ×2 (08:55→17:09)
[2018-06-21] MEDS: TraMADol HCL 50 MG TABLET PO PRN (10:41)
[2018-06-21 16:25] VITALS: BP 100/60
[2018-06-21] MEDS: TraZODone HCL 100 MG TABLET PO SCH (20:49)
[2018-06-21] MEDS: HALOPERIDOL 5 MG TABLET PO PRN (20:49)
[2018-06-22 03:24] VITALS: BP 113/68
[2018-06-22] MEDS: LEVOTHYROXINE SODIUM 75 MCG TABLET PO SCH (06:55)
[2018-06-22] MEDS: PANTOPRAZOLE SODIUM 40 MG DR TABLET PO SCH (06:55)
[2018-06-22 08:00] VITALS: BP 103/76
[2018-06-22] MEDS: DOCUSATE SODIUM 100 MG CAPSULE PO SCH ×2 (08:44→16:27)
[2018-06-22] MEDS: SERTRALINE HCL 50 MG TABLET PO SCH (08:45)
[2018-06-22] MEDS: BENZTROPINE MESYLATE 2 MG TABLET PO SCH ×2 (08:45→16:27)
[2018-06-22] MEDS: MEGESTROL ACETATE 400 MG/10 ML SUSPENSION UDCUP PO SCH ×2 (08:45→16:27)
[2018-06-22] MEDS: VALPROIC ACID 250 MG CAPSULE PO SCH ×2 (08:45→16:27)
[2018-06-22] MEDS: RisperiDONE CONC 3 MG/3 ML SOLUTION ORAL.SYG PO SCH ×2 (08:45→16:28)
[2018-06-22] MEDS: MULTIVITAMINS WITH MINERALS, THERAPEUTIC TABLET PO SCH (08:45)
[2018-06-22] MEDS: ZINC OXIDE 40%/COD LIVER OIL 57 GM PASTE TP SCH ×2 (08:46→16:29)
[2018-06-22] MEDS: TraMADol HCL 50 MG TABLET PO PRN (10:37)
[2018-06-22 16:01] VITALS: BP 101/64
[2018-06-22] MEDS: TraZODone HCL 100 MG TABLET PO SCH (20:06)
[2018-06-23] MEDS: PANTOPRAZOLE SODIUM 40 MG DR TABLET PO SCH (06:26)
[2018-06-23 06:46] VITALS: BP 115/63
[2018-06-23] MEDS: LEVOTHYROXINE SODIUM 75 MCG TABLET PO SCH (06:47)
[2018-06-23 08:21] VITALS: BP 98/50
[2018-06-23] MEDS: DOCUSATE SODIUM 100 MG CAPSULE PO SCH ×2 (08:57→16:53)
[2018-06-23] MEDS: VALPROIC ACID 250 MG CAPSULE PO SCH ×2 (08:57→16:53)
[2018-06-23] MEDS: RisperiDONE CONC 3 MG/3 ML SOLUTION ORAL.SYG PO SCH ×2 (08:58→16:53)
[2018-06-23] MEDS: MEGESTROL ACETATE 400 MG/10 ML SUSPENSION UDCUP PO SCH ×2 (08:58→16:53)
[2018-06-23] MEDS: SERTRALINE HCL 50 MG TABLET PO SCH (08:58)
[2018-06-23] MEDS: MULTIVITAMINS WITH MINERALS, THERAPEUTIC TABLET PO SCH (08:58)
[2018-06-23] MEDS: ZINC OXIDE 40%/COD LIVER OIL 57 GM PASTE TP SCH ×2 (08:59→16:53)
[2018-06-23] MEDS ORDERED: BENZOCAINE/MENTHOL LOZENGE PO PRN (09:00)
[2018-06-23] MEDS ORDERED: GuaiFENesin [SUGAR-FREE] 200 MG/10 ML SOLUTION UDCUP PO PRN (09:00)
[2018-06-23] MEDS: BENZTROPINE MESYLATE 2 MG TABLET PO SCH ×2 (09:02→17:12)
[2018-06-23 16:00] VITALS: BP 105/63
[2018-06-23] MEDS: TraZODone HCL 100 MG TABLET PO SCH (20:04)
[2018-06-24] MEDS: LEVOTHYROXINE SODIUM 75 MCG TABLET PO SCH (06:48)
[2018-06-24] MEDS: PANTOPRAZOLE SODIUM 40 MG DR TABLET PO SCH (06:48)
[2018-06-24 07:00] VITALS: BP 110/65
[2018-06-24 08:24] VITALS: BP 110/67
[2018-06-24] MEDS: VALPROIC ACID 250 MG CAPSULE PO SCH ×2 (08:59→19:33)
[2018-06-24] MEDS: DOCUSATE SODIUM 100 MG CAPSULE PO SCH ×2 (09:00→18:06)
[2018-06-24] MEDS: MULTIVITAMINS WITH MINERALS, THERAPEUTIC TABLET PO SCH (09:00)
[2018-06-24] MEDS: BENZTROPINE MESYLATE 2 MG TABLET PO SCH ×2 (09:00→18:06)
[2018-06-24] MEDS: MEGESTROL ACETATE 400 MG/10 ML SUSPENSION UDCUP PO SCH ×2 (09:00→18:04)
[2018-06-24] MEDS: SERTRALINE HCL 50 MG TABLET PO SCH (09:00)
[2018-06-24] MEDS: ZINC OXIDE 40%/COD LIVER OIL 57 GM PASTE TP SCH ×2 (09:00→18:03)
[2018-06-24] MEDS: RisperiDONE CONC 3 MG/3 ML SOLUTION ORAL.SYG PO SCH ×2 (09:01→18:03)
[2018-06-24] MEDS: HALOPERIDOL 5 MG TABLET PO PRN (09:02)
[2018-06-24 16:24] VITALS: BP 123/72
[2018-06-24] MEDS: TraZODone HCL 100 MG TABLET PO SCH (20:47)
[2018-06-25] MEDS: LEVOTHYROXINE SODIUM 75 MCG TABLET PO SCH (06:54)
[2018-06-25] MEDS: PANTOPRAZOLE SODIUM 40 MG DR TABLET PO SCH (06:54)
[2018-06-25 08:12] VITALS: BP 106/67
[2018-06-25] MEDS: ZINC OXIDE 40%/COD LIVER OIL 57 GM PASTE TP SCH ×2 (09:00→16:50)
[2018-06-25] MEDS: MULTIVITAMINS WITH MINERALS, THERAPEUTIC TABLET PO SCH (09:10)
[2018-06-25] MEDS: SERTRALINE HCL 50 MG TABLET PO SCH (09:10)
[2018-06-25] MEDS: DOCUSATE SODIUM 100 MG CAPSULE PO SCH ×2 (09:11→16:50)
[2018-06-25] MEDS: RisperiDONE CONC 3 MG/3 ML SOLUTION ORAL.SYG PO SCH ×2 (09:11→16:50)
[2018-06-25] MEDS: MEGESTROL ACETATE 400 MG/10 ML SUSPENSION UDCUP PO SCH ×2 (09:11→16:50)
[2018-06-25] MEDS: VALPROIC ACID 250 MG CAPSULE PO SCH ×2 (09:11→16:50)
[2018-06-25] MEDS: BENZTROPINE MESYLATE 2 MG TABLET PO SCH ×2 (09:11→16:51)
[2018-06-25 18:10] VITALS: BP 124/77
[2018-06-25] MEDS: TraZODone HCL 100 MG TABLET PO SCH (21:17)
[2018-06-26] MEDS: LEVOTHYROXINE SODIUM 75 MCG TABLET PO SCH (07:02)
[2018-06-26] MEDS: PANTOPRAZOLE SODIUM 40 MG DR TABLET PO SCH (07:03)
[2018-06-26 08:00] VITALS: BP 103/42
[2018-06-26] MEDS: RisperiDONE CONC 3 MG/3 ML SOLUTION ORAL.SYG PO SCH ×2 (09:43→16:36)
[2018-06-26] MEDS: VALPROIC ACID 250 MG CAPSULE PO SCH ×2 (09:45→16:37)
[2018-06-26] MEDS: SERTRALINE HCL 50 MG TABLET PO SCH (09:45)
[2018-06-26] MEDS: HALOPERIDOL 5 MG TABLET PO PRN (09:45)
[2018-06-26] MEDS: BENZTROPINE MESYLATE 2 MG TABLET PO SCH ×2 (09:45→16:36)
[2018-06-26] MEDS: MULTIVITAMINS WITH MINERALS, THERAPEUTIC TABLET PO SCH (09:45)
[2018-06-26] MEDS: MEGESTROL ACETATE 400 MG/10 ML SUSPENSION UDCUP PO SCH ×2 (09:46→16:36)
[2018-06-26] MEDS: DOCUSATE SODIUM 100 MG CAPSULE PO SCH ×2 (09:47→16:36)
[2018-06-26] MEDS: ZINC OXIDE 40%/COD LIVER OIL 57 GM PASTE TP SCH ×2 (09:48→16:38)
[2018-06-26 17:19] VITALS: BP 107/75
[2018-06-26] MEDS: TraZODone HCL 100 MG TABLET PO SCH (20:06)
[2018-06-27] MEDS: LEVOTHYROXINE SODIUM 75 MCG TABLET PO SCH (07:02)
[2018-06-27] MEDS: PANTOPRAZOLE SODIUM 40 MG DR TABLET PO SCH (07:02)
[2018-06-27 08:00] VITALS: BP 117/59
[2018-06-27] MEDS: RisperiDONE CONC 3 MG/3 ML SOLUTION ORAL.SYG PO SCH ×2 (08:19→16:03)
[2018-06-27] MEDS: BENZTROPINE MESYLATE 2 MG TABLET PO SCH ×2 (08:21→16:03)
[2018-06-27] MEDS: VALPROIC ACID 250 MG CAPSULE PO SCH ×2 (08:21→16:02)
[2018-06-27] MEDS: MULTIVITAMINS WITH MINERALS, THERAPEUTIC TABLET PO SCH (08:21)
[2018-06-27] MEDS: SERTRALINE HCL 50 MG TABLET PO SCH (08:21)
[2018-06-27] MEDS: DOCUSATE SODIUM 100 MG CAPSULE PO SCH ×2 (08:21→16:02)
[2018-06-27] MEDS: ZINC OXIDE 40%/COD LIVER OIL 57 GM PASTE TP SCH ×2 (08:22→16:03)
[2018-06-27] MEDS: MEGESTROL ACETATE 400 MG/10 ML SUSPENSION UDCUP PO SCH ×2 (08:22→16:03)
[2018-06-27 16:38] VITALS: BP 143/71
[2018-06-27] MEDS: TraZODone HCL 100 MG TABLET PO SCH (20:15)
[2018-06-27] MEDS: HALOPERIDOL 5 MG TABLET PO PRN (21:32)
[2018-06-28] MEDS: LEVOTHYROXINE SODIUM 75 MCG TABLET PO SCH (06:38)
[2018-06-28] MEDS: PANTOPRAZOLE SODIUM 40 MG DR TABLET PO SCH (06:38)
[2018-06-28 08:33] VITALS: BP 124/75
[2018-06-28] MEDS: HALOPERIDOL 5 MG TABLET PO PRN (08:40)
[2018-06-28] MEDS: RisperiDONE CONC 3 MG/3 ML SOLUTION ORAL.SYG PO SCH ×2 (08:40→16:40)
[2018-06-28] MEDS: VALPROIC ACID 250 MG CAPSULE PO SCH ×2 (08:40→16:40)
[2018-06-28] MEDS: ZINC OXIDE 40%/COD LIVER OIL 57 GM PASTE TP SCH ×2 (08:40→16:42)
[2018-06-28] MEDS: MEGESTROL ACETATE 400 MG/10 ML SUSPENSION UDCUP PO SCH ×2 (08:40→16:41)
[2018-06-28] MEDS: MULTIVITAMINS WITH MINERALS, THERAPEUTIC TABLET PO SCH (08:40)
[2018-06-28] MEDS: DOCUSATE SODIUM 100 MG CAPSULE PO SCH ×2 (08:40→16:41)
[2018-06-28] MEDS: BENZTROPINE MESYLATE 2 MG TABLET PO SCH ×2 (08:40→16:40)
[2018-06-28] MEDS: SERTRALINE HCL 50 MG TABLET PO SCH (08:40)
[2018-06-28] MEDS: LACTULOSE 20 GM/30 ML SOLUTION UDCUP PO PRN (08:41)
[2018-06-28 17:08] VITALS: BP 114/74
[2018-06-28] MEDS: TraZODone HCL 100 MG TABLET PO SCH (20:44)
[2018-06-29] MEDS: LEVOTHYROXINE SODIUM 75 MCG TABLET PO SCH (06:43)
[2018-06-29] MEDS: PANTOPRAZOLE SODIUM 40 MG DR TABLET PO SCH (06:43)
[2018-06-29] MEDS: SERTRALINE HCL 50 MG TABLET PO SCH (08:38)
[2018-06-29] MEDS: BENZTROPINE MESYLATE 2 MG TABLET PO SCH ×2 (08:38→17:34)
[2018-06-29] MEDS: VALPROIC ACID 250 MG CAPSULE PO SCH ×2 (08:38→17:35)
[2018-06-29] MEDS: MULTIVITAMINS WITH MINERALS, THERAPEUTIC TABLET PO SCH (08:38)
[2018-06-29] MEDS: DOCUSATE SODIUM 100 MG CAPSULE PO SCH ×2 (08:38→17:35)
[2018-06-29] MEDS: MEGESTROL ACETATE 400 MG/10 ML SUSPENSION UDCUP PO SCH ×2 (08:39→17:38)
[2018-06-29] MEDS: RisperiDONE CONC 3 MG/3 ML SOLUTION ORAL.SYG PO SCH ×2 (08:45→17:36)
[2018-06-29] MEDS: ZINC OXIDE 40%/COD LIVER OIL 57 GM PASTE TP SCH ×2 (08:46→17:36)
[2018-06-29 09:54] VITALS: BP 121/63
[2018-06-29] MEDS: HALOPERIDOL 5 MG TABLET PO PRN (10:53)
[2018-06-29] MEDS: TraZODone HCL 100 MG TABLET PO SCH (20:21)
[2018-06-29 20:40] VITALS: BP 117/70
[2018-06-30] MEDS: LEVOTHYROXINE SODIUM 75 MCG TABLET PO SCH (07:01)
[2018-06-30] MEDS: PANTOPRAZOLE SODIUM 40 MG DR TABLET PO SCH (07:01)
[2018-06-30 09:04] VITALS: BP 113/82
[2018-06-30] MEDS: RisperiDONE CONC 3 MG/3 ML SOLUTION ORAL.SYG PO SCH ×2 (09:23→16:57)
[2018-06-30] MEDS: ZINC OXIDE 40%/COD LIVER OIL 57 GM PASTE TP SCH ×2 (09:24→16:57)
[2018-06-30] MEDS: BENZTROPINE MESYLATE 2 MG TABLET PO SCH ×2 (09:31→16:57)
[2018-06-30] MEDS: DOCUSATE SODIUM 100 MG CAPSULE PO SCH ×2 (09:31→16:57)
[2018-06-30] MEDS: SERTRALINE HCL 50 MG TABLET PO SCH (09:31)
[2018-06-30] MEDS: VALPROIC ACID 250 MG CAPSULE PO SCH ×2 (09:31→16:56)
[2018-06-30] MEDS: HALOPERIDOL 5 MG TABLET PO PRN ×3 (09:31→21:11)
[2018-06-30] MEDS: MULTIVITAMINS WITH MINERALS, THERAPEUTIC TABLET PO SCH (09:31)
[2018-06-30] MEDS: MEGESTROL ACETATE 400 MG/10 ML SUSPENSION UDCUP PO SCH ×2 (09:33→16:57)
[2018-06-30 18:42] VITALS: BP 121/75
[2018-06-30] MEDS: TraZODone HCL 100 MG TABLET PO SCH (20:06)
[2018-07-01] MEDS: LEVOTHYROXINE SODIUM 75 MCG TABLET PO SCH (06:40)
[2018-07-01] MEDS: PANTOPRAZOLE SODIUM 40 MG DR TABLET PO SCH (06:40)
[2018-07-01] MEDS: BENZTROPINE MESYLATE 2 MG TABLET PO SCH ×2 (08:27→17:36)
[2018-07-01] MEDS: MULTIVITAMINS WITH MINERALS, THERAPEUTIC TABLET PO SCH (08:27)
[2018-07-01] MEDS: DOCUSATE SODIUM 100 MG CAPSULE PO SCH ×2 (08:27→17:36)
[2018-07-01] MEDS: SERTRALINE HCL 50 MG TABLET PO SCH (08:27)
[2018-07-01] MEDS: MEGESTROL ACETATE 400 MG/10 ML SUSPENSION UDCUP PO SCH ×2 (08:28→17:36)
[2018-07-01] MEDS: RisperiDONE CONC 3 MG/3 ML SOLUTION ORAL.SYG PO SCH ×2 (08:28→17:36)
[2018-07-01] MEDS: ZINC OXIDE 40%/COD LIVER OIL 57 GM PASTE TP SCH ×2 (08:28→17:37)
[2018-07-01] MEDS: VALPROIC ACID 250 MG CAPSULE PO SCH ×2 (08:31→17:36)
[2018-07-01 09:08] VITALS: BP 106/63
[2018-07-01] MEDS: HALOPERIDOL 5 MG TABLET PO PRN (10:49)
[2018-07-01 16:14] VITALS: BP 117/72
[2018-07-01] MEDS: TraZODone HCL 100 MG TABLET PO SCH (20:48)
[2018-07-02] MEDS: PANTOPRAZOLE SODIUM 40 MG DR TABLET PO SCH (07:01)
[2018-07-02] MEDS: LEVOTHYROXINE SODIUM 75 MCG TABLET PO SCH (07:01)
[2018-07-02] MEDS: DOCUSATE SODIUM 100 MG CAPSULE PO SCH ×2 (07:57→16:13)
[2018-07-02] MEDS: RisperiDONE CONC 3 MG/3 ML SOLUTION ORAL.SYG PO SCH ×2 (07:57→16:10)
[2018-07-02] MEDS: SERTRALINE HCL 50 MG TABLET PO SCH (07:57)
[2018-07-02] MEDS: VALPROIC ACID 250 MG CAPSULE PO SCH ×2 (07:57→16:12)
[2018-07-02] MEDS: MULTIVITAMINS WITH MINERALS, THERAPEUTIC TABLET PO SCH (07:57)
[2018-07-02] MEDS: BENZTROPINE MESYLATE 2 MG TABLET PO SCH ×2 (07:57→16:13)
[2018-07-02] MEDS: HALOPERIDOL 5 MG TABLET PO PRN (07:57)
[2018-07-02] MEDS: MEGESTROL ACETATE 400 MG/10 ML SUSPENSION UDCUP PO SCH ×2 (07:57→16:10)
[2018-07-02] MEDS: ZINC OXIDE 40%/COD LIVER OIL 57 GM PASTE TP SCH ×2 (07:58→16:13)
[2018-07-02 08:52] VITALS: BP 104/67
[2018-07-02 16:35] VITALS: BP 116/82
[2018-07-02] MEDS: TraZODone HCL 100 MG TABLET PO SCH (20:17)
[2018-07-03] MEDS: PANTOPRAZOLE SODIUM 40 MG DR TABLET PO SCH (06:46)
[2018-07-03] MEDS: LEVOTHYROXINE SODIUM 75 MCG TABLET PO SCH (06:46)
[2018-07-03] MEDS: ZINC OXIDE 40%/COD LIVER OIL 57 GM PASTE TP SCH ×2 (07:53→17:21)
[2018-07-03] MEDS: RisperiDONE CONC 3 MG/3 ML SOLUTION ORAL.SYG PO SCH ×2 (07:54→17:20)
[2018-07-03] MEDS: BENZTROPINE MESYLATE 2 MG TABLET PO SCH ×2 (07:57→17:20)
[2018-07-03] MEDS: VALPROIC ACID 250 MG CAPSULE PO SCH ×2 (07:57→17:20)
[2018-07-03] MEDS: DOCUSATE SODIUM 100 MG CAPSULE PO SCH ×2 (07:57→17:20)
[2018-07-03] MEDS: SERTRALINE HCL 50 MG TABLET PO SCH (07:57)
[2018-07-03] MEDS: HALOPERIDOL 5 MG TABLET PO PRN (07:57)
[2018-07-03] MEDS: MULTIVITAMINS WITH MINERALS, THERAPEUTIC TABLET PO SCH (07:58)
[2018-07-03] MEDS: MEGESTROL ACETATE 400 MG/10 ML SUSPENSION UDCUP PO SCH ×2 (07:59→17:23)
[2018-07-03 09:28] VITALS: BP 102/71
[2018-07-03 16:00] VITALS: BP 134/68
[2018-07-03] MEDS: TraZODone HCL 100 MG TABLET PO SCH (21:13)
[2018-07-04] MEDS: LEVOTHYROXINE SODIUM 75 MCG TABLET PO SCH (06:45)
[2018-07-04] MEDS: PANTOPRAZOLE SODIUM 40 MG DR TABLET PO SCH (06:45)
[2018-07-04 07:03] VITALS: BP 115/67
[2018-07-04 07:11] LABS: BASOPHILS % (AUTO) 0.2 % (0.0-2.0); EOSINOPHILS % (AUTO) 0.1 % (1.0-6.0); HEMATOCRIT 47.1 % (36-46); LYMPHOCYTES # (AUTO) 2.8 K/uL (1.0-4.8); LYMPHOCYTES % (AUTO) 42.9 % (22.0-44.0); MEAN CORPUSCULAR HEMOGLOBIN 33.9 pg (26.0-34.0); MEAN CORPUSCULAR VOLUME 100 fL (80-100); MONOCYTES # (AUTO) 0.5 K/uL (0.1-1.0); MONOCYTES % (AUTO) 8.3 % (2.0-9.0); NEUTROPHILS # (AUTO) 3.2 K/uL (1.8-7.7); NEUTROPHILS % (AUTO) 48.5 % (40.0-70.0); PLATELET COUNT (AUTO) 205 K/uL (150-450); RED BLOOD CELL COUNT(AUTO) 4.73 MIL/uL (4.00-5.20); RED CELL DISTRIBUTION WIDTH 13.2 % (11.5-14.5)
[2018-07-04 07:31] LABS: CALCIUM, TOTAL 9.5 mg/dL (8.8-10.5); CREATININE 1.11 mg/dL (0.60-1.30); POTASSIUM 4.3 mmol/L (3.5-5.1)
[2018-07-04] MEDS: DOCUSATE SODIUM 100 MG CAPSULE PO SCH ×2 (09:08→16:25)
[2018-07-04] MEDS: VALPROIC ACID 250 MG CAPSULE PO SCH ×2 (09:08→16:25)
[2018-07-04] MEDS: MEGESTROL ACETATE 400 MG/10 ML SUSPENSION UDCUP PO SCH ×2 (09:09→16:24)
[2018-07-04] MEDS: SERTRALINE HCL 50 MG TABLET PO SCH (09:10)
[2018-07-04] MEDS: BENZTROPINE MESYLATE 2 MG TABLET PO SCH ×2 (09:10→16:24)
[2018-07-04] MEDS: MULTIVITAMINS WITH MINERALS, THERAPEUTIC TABLET PO SCH (09:10)
[2018-07-04] MEDS: RisperiDONE CONC 3 MG/3 ML SOLUTION ORAL.SYG PO SCH ×2 (09:10→16:09)
[2018-07-04] MEDS: ZINC OXIDE 40%/COD LIVER OIL 57 GM PASTE TP SCH ×2 (09:11→16:09)
[2018-07-04] MEDS: HALOPERIDOL 5 MG TABLET PO PRN (13:03)
[2018-07-04 13:30] VITALS: BP 118/75
[2018-07-04 17:00] VITALS: BP 126/73
[2018-07-04] MEDS: TraZODone HCL 100 MG TABLET PO SCH (20:30)
[2018-07-05 06:20] VITALS: BP 116/70
[2018-07-05] MEDS: LEVOTHYROXINE SODIUM 75 MCG TABLET PO SCH (06:54)
[2018-07-05] MEDS: PANTOPRAZOLE SODIUM 40 MG DR TABLET PO SCH (06:54)
[2018-07-05] MEDS: MEGESTROL ACETATE 400 MG/10 ML SUSPENSION UDCUP PO SCH ×2 (08:37→16:53)
[2018-07-05] MEDS: DOCUSATE SODIUM 100 MG CAPSULE PO SCH ×2 (08:38→16:53)
[2018-07-05] MEDS: HALOPERIDOL 5 MG TABLET PO PRN ×2 (08:38→14:11)
[2018-07-05] MEDS: SERTRALINE HCL 50 MG TABLET PO SCH (08:38)
[2018-07-05] MEDS: MULTIVITAMINS WITH MINERALS, THERAPEUTIC TABLET PO SCH (08:39)
[2018-07-05] MEDS: BENZTROPINE MESYLATE 2 MG TABLET PO SCH ×2 (08:39→16:53)
[2018-07-05] MEDS: RisperiDONE CONC 3 MG/3 ML SOLUTION ORAL.SYG PO SCH ×2 (08:39→16:53)
[2018-07-05] MEDS: VALPROIC ACID 250 MG CAPSULE PO SCH ×2 (08:39→16:52)
[2018-07-05] MEDS: ZINC OXIDE 40%/COD LIVER OIL 57 GM PASTE TP SCH ×2 (09:00→16:53)
[2018-07-05 09:12] VITALS: BP 122/61
[2018-07-05 17:03] VITALS: BP 133/75
[2018-07-05] MEDS: TraZODone HCL 100 MG TABLET PO SCH (20:03)
[2018-07-06 06:26] VITALS: BP 126/89
[2018-07-06] MEDS: LEVOTHYROXINE SODIUM 75 MCG TABLET PO SCH (07:04)
[2018-07-06] MEDS: PANTOPRAZOLE SODIUM 40 MG DR TABLET PO SCH (07:04)
[2018-07-06] MEDS: RisperiDONE CONC 3 MG/3 ML SOLUTION ORAL.SYG PO SCH ×2 (08:39→16:20)
[2018-07-06] MEDS: ZINC OXIDE 40%/COD LIVER OIL 57 GM PASTE TP SCH ×2 (08:39→16:20)
[2018-07-06] MEDS: MEGESTROL ACETATE 400 MG/10 ML SUSPENSION UDCUP PO SCH ×2 (08:40→16:20)
[2018-07-06] MEDS: BENZTROPINE MESYLATE 2 MG TABLET PO SCH ×2 (08:40→16:20)
[2018-07-06] MEDS: VALPROIC ACID 250 MG CAPSULE PO SCH ×2 (08:41→16:19)
[2018-07-06] MEDS: HALOPERIDOL 5 MG TABLET PO PRN ×2 (08:41→16:39)
[2018-07-06] MEDS: DOCUSATE SODIUM 100 MG CAPSULE PO SCH ×2 (08:42→16:20)
[2018-07-06] MEDS: MULTIVITAMINS WITH MINERALS, THERAPEUTIC TABLET PO SCH (08:42)
[2018-07-06] MEDS: SERTRALINE HCL 50 MG TABLET PO SCH (08:42)
[2018-07-06 10:55] VITALS: BP 118/86
[2018-07-06] MEDS: TraZODone HCL 100 MG TABLET PO SCH (20:17)
[2018-07-07 01:25] VITALS: BP 131/65
[2018-07-07] MEDS: PANTOPRAZOLE SODIUM 40 MG DR TABLET PO SCH (06:59)
[2018-07-07] MEDS: LEVOTHYROXINE SODIUM 75 MCG TABLET PO SCH (06:59)
[2018-07-07] MEDS: VALPROIC ACID 250 MG CAPSULE PO SCH ×2 (07:39→17:28)
[2018-07-07] MEDS: MEGESTROL ACETATE 400 MG/10 ML SUSPENSION UDCUP PO SCH ×2 (07:40→17:28)
[2018-07-07] MEDS: HALOPERIDOL 5 MG TABLET PO PRN (07:40)
[2018-07-07] MEDS: ONDANSETRON HCL 4 MG TABLET PO PRN (07:40)
[2018-07-07] MEDS: MULTIVITAMINS WITH MINERALS, THERAPEUTIC TABLET PO SCH (07:40)
[2018-07-07] MEDS: RisperiDONE CONC 3 MG/3 ML SOLUTION ORAL.SYG PO SCH ×2 (07:40→17:28)
[2018-07-07] MEDS: DOCUSATE SODIUM 100 MG CAPSULE PO SCH ×2 (07:40→17:28)
[2018-07-07] MEDS: LOPERAMIDE HCL 2 MG CAPSULE PO PRN (07:40)
[2018-07-07] MEDS: ZINC OXIDE 40%/COD LIVER OIL 57 GM PASTE TP SCH ×2 (07:40→17:00)
[2018-07-07] MEDS: BENZTROPINE MESYLATE 2 MG TABLET PO SCH ×2 (07:40→17:28)
[2018-07-07] MEDS: SERTRALINE HCL 50 MG TABLET PO SCH (07:40)
[2018-07-07 10:47] VITALS: BP 126/65
[2018-07-07 16:00] VITALS: BP 139/78
[2018-07-07] MEDS: TraZODone HCL 100 MG TABLET PO SCH (20:28)
[2018-07-08] MEDS: PANTOPRAZOLE SODIUM 40 MG DR TABLET PO SCH (06:56)
[2018-07-08] MEDS: LEVOTHYROXINE SODIUM 75 MCG TABLET PO SCH (06:56)
[2018-07-08] MEDS: VALPROIC ACID 250 MG CAPSULE PO SCH (08:27)
[2018-07-08] MEDS: DOCUSATE SODIUM 100 MG CAPSULE PO SCH (08:28)
[2018-07-08] MEDS: ZINC OXIDE 40%/COD LIVER OIL 57 GM PASTE TP SCH (08:28)
[2018-07-08] MEDS: RisperiDONE CONC 3 MG/3 ML SOLUTION ORAL.SYG PO SCH (08:28)
[2018-07-08] MEDS: SERTRALINE HCL 50 MG TABLET PO SCH (08:28)
[2018-07-08] MEDS: MULTIVITAMINS WITH MINERALS, THERAPEUTIC TABLET PO SCH (08:28)
[2018-07-08] MEDS: BENZTROPINE MESYLATE 2 MG TABLET PO SCH (08:28)
[2018-07-08] MEDS ORDERED: Desitin TP (10:06)
[2018-07-08] MEDS ORDERED: VALP250 PO (10:17)
[2018-07-08] MEDS ORDERED: SERT50TA12 PO (10:17)
== END 2018-07-08 11:30 | disposition home or self-care (01) | DRG 750 ==
LOC: EMS 16:18 → B3A 10-10 16:48 → 3EC 02-28 20:16 → B3A 06-06 02:38 → B2S 06-18 14:30 → B3A 06-22 17:11 → 3EC 06-24 14:45
PROVIDERS: ADMIT Psychiatry & Neurology Psychiatry; ATTEND Psychiatry & Neurology Psychiatry
DX: F25.0 Schizoaffective disorder, bipolar type (principal); E43 Unspecified severe protein-calorie malnutrition; R45.851 Suicidal ideations; E03.9 Hypothyroidism, unspecified; K21.9 Gastro-esophageal reflux disease without esophagitis; K59.00 Constipation, unspecified; E86.0 Dehydration; F17.210 Nicotine dependence, cigarettes, uncomplicated; F41.9 Anxiety disorder, unspecified; J44.9 Chronic obstructive pulmonary disease, unspecified; L22 Diaper dermatitis; M19.90 Unspecified osteoarthritis, unspecified site; N39.0 Urinary tract infection, site not specified; Z68.27 Body mass index [BMI] 27.0-27.9, adult; Z81.8 Family history of other mental and behavioral disorders; Z91.5 Personal history of self-harm; Z79.899 Other long term (current) drug therapy
CPT/HCPCS: 80307; 83036; 84443; 87081; 87086; 90686; 97110; 97116; 97162; 97165; 97166; 97530; 97535; J1200; J1630; J2060; Q0162

== ENCOUNTER 2017-11-10 11:24 | Emergency (ER) | payer MEDICAID, OTHER ==
[~2017-11-10] VITALS: Ht 167.6 cm; Wt 74.5 kg
[~2017-11-10 11:24] MED LIST changes: +DIVA-76 PO; -DIVA-78 PO
[2017-11-10 12:26] LABS: BASOPHILS % (AUTO) 0.7 % (0.0-2.0); EOSINOPHILS % (AUTO) 0.1 % (1.0-6.0); HEMATOCRIT 43.9 % (36-46); LYMPHOCYTES # (AUTO) 1.1 K/uL (1.0-4.8); LYMPHOCYTES % (AUTO) 19.5 % (22.0-44.0); MEAN CORPUSCULAR HEMOGLOBIN 31.9 pg (26.0-34.0); MEAN CORPUSCULAR HGB CONC 34.1 G/dL (31.0-37.0); MEAN CORPUSCULAR VOLUME 93 fL (80-100); MONOCYTES # (AUTO) 0.7 K/uL (0.1-1.0); MONOCYTES % (AUTO) 13.1 % (2.0-9.0); NEUTROPHILS # (AUTO) 3.6 K/uL (1.8-7.7); NEUTROPHILS % (AUTO) 66.6 % (40.0-70.0); PLATELET COUNT (AUTO) 203 K/uL (150-450); RED BLOOD CELL COUNT(AUTO) 4.69 MIL/uL (4.00-5.20)
[2017-11-10 12:30] LABS: APPEARANCE,URINE CLEAR (CLEAR); BILIRUBIN,URINE NEGATIVE (NEGATIVE); GLUCOSE, URINE (UA) NEGATIVE (NEGATIVE); KETONES,URINE TRACE mg/dL (NEGATIVE); LEUKOCYTE ESTERASE ,URINE NEGATIVE (NEGATIVE); NITRATE,URINE NEGATIVE (NEGATIVE); OCCULT BLOOD,URINE NEGATIVE (NEGATIVE); PH,URINE 5.5 (5.0-8.0); PROTEIN,URINE NEGATIVE (NEGATIVE); UROBILINOGEN,URINE 0.2 mg/dL (<=1.0)
[2017-11-10 12:31] LABS: CALCIUM, TOTAL 9.3 mg/dL (8.8-10.5); CREATININE 1.11 mg/dL (0.60-1.30); POTASSIUM 3.7 mmol/L (3.5-5.1)
[2017-11-10 12:37] LABS: ALBUMIN 2.9 g/dL (3.4-5.0); BACTERIA,URINE None Seen /HPF (None Seen); BILIRUBIN,TOTAL 0.4 mg/dL (0.1-1.0); RBC,URINE None Seen /HPF (0-2); SQUAMOUS EPITHELIAL CELL,UR Rare /LPF (None Seen); TOTAL PROTEIN, SERUM 6.2 g/dL (6.4-8.2); WBC,URINE None Seen /HPF (0-5)
[2017-11-10 12:56] VITALS: BP 108/76
== END 2017-11-10 13:37 | disposition home or self-care (01) ==
LOC: EMS 11:26
DX: F41.9 Anxiety disorder, unspecified (principal); R32 Unspecified urinary incontinence; F25.9 Schizoaffective disorder, unspecified; J45.909 Unspecified asthma, uncomplicated; F31.9 Bipolar disorder, unspecified; J44.9 Chronic obstructive pulmonary disease, unspecified; K21.9 Gastro-esophageal reflux disease without esophagitis; F17.210 Nicotine dependence, cigarettes, uncomplicated; E03.9 Hypothyroidism, unspecified; Z90.49 Acquired absence of other specified parts of digestive tract; Z88.2 Allergy status to sulfonamides; Z88.6 Allergy status to analgesic agent; Z91.013 Allergy to seafood
CPT/HCPCS: 51701; 99284; 99406